=== PATIENT | female | born 2000 | race Caucasian/White ===

== ENCOUNTER 2023-08-14 18:35 | Emergency (ER) | payer BC, SELFPAY ==
[2023-08-14 18:45] VITALS: BP 103/74; PULSE 73; RESP 20; TEMP 36.7; O2SAT 96; BMI 50.1
--- NOTE | 2023-08-14 18:47 | EXP.UTC ---
Discharge Plan Disposition Patient Disposition: Home, Self-Care Condition: Good Prescriptions Prescriptions: New frtectnxxpahklf-ooihwpqwi-FJ [Bromfed DM] 2-30-10 mg/5 mL Syrup 5 ml PO Q6H PRN (Reason: Cough) Qty: 240 0RF ondansetron 4 mg Tablet,Disintegrating 4 mg PO Q8H PRN (Reason: Nausea) Qty: 12 0RF No Action duloxetine 60 mg capsule,delayed release(DR/EC) 60 mg PO DAILY Referrals Follow up/Referrals: Provider,Referral, MD [Primary Care Provider] - See instructions Activity Restrictions/Add. Instructions Additional Instructions/Restrictions: Drink plenty of fluids. Take tylenol or ibuprofen for pain or fever. Take the medications as directed. Follow up with your regular doctor. GO TO THE ER FOR ANY WORSENING SYMPTOMS Clinical Impressions Clinical Impression: Acute viral syndrome Stand Alone Forms Stand Alone Forms: Work/School Release Instructions Patient Instructions: DI for Viral Syndrome, Ondansetron Discharge ED Provider: Abelino Edwards [facility] General Stated complaint: fever, h/a, body aches, dizzy Time Seen by Provider: 08/14/23 18:46 History of Present Illness Provider Complaint: She states that for the past 2 days she had felt bad, had chills and body aches. Related Data Home Medications Medication Instructions Recorded Confirmed duloxetine 60 mg capsule,delayed 60 mg PO DAILY 08/14/23 08/14/23 release Previous Rx's Medication Instructions Recorded wkbcxzgiznolhso-ysfctvgosxpinwf-QX 5 ml PO Q6H PRN Cough #240 mL 08/14/23 2 mg-30 mg-10 mg/5 mL oral syrup (Bromfed DM) ondansetron 4 mg disintegrating 4 mg PO Q8H PRN Nausea #12 tabs 08/14/23 tablet Allergies Allergy/AdvReac Type Severity Reaction Status Date / Time No Known Allergies Allergy Verified 08/14/23 19:01 [facility] Disclaimer: The information contained in this section may have been updated after the patient was seen, as this information can be updated by other users. 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 (Updated 08/14/23 @ 19:20 by Abelino Edwards APRN) Anemia Anxiety Depression Surgical History (Updated 08/14/23 @ 19:02 by Sandi A Camacho, RN) History of tonsillectomy Social History Smoking Status: Never smoker alcohol intake: never current occupational status: employed Travel in the last 8 weeks: None ROS Obtained: Yes All systems reviewed & no additional complaints except as documented Constitutional Constitutional: Reports chills and Reports fever(s) Eyes Eyes: Denies eye discharge ENT Ears, Nose, Mouth, and Throat: Reports as per HPI Cardiovascular Cardiovascular: Denies chest pain Respiratory Respiratory: Denies chest congestion and Reports cough Gastrointestinal Gastrointestingal: Reports nausea; Denies abdominal pain, constipation, cramping, diarrhea or vomiting Musculoskeletal Musculoskeletal: Denies arthralgias Integumentary/Breasts Skin/Breast: Denies rash Neurologic Neurologic: Denies paresthesias Physical Exam General General appearance: alert and in no apparent distress Head Head exam: atraumatic, normocephalic and normal inspection Eye Eye exam: Present normal appearance, PERRL and EOMI ENT ENT exam: Present normal exam, normal oropharynx, mucous membranes moist, TM's normal bilaterally and normal external ear exam Neck Neck exam: Present normal inspection, full ROM and trachea midline; Absent meningismus or lymphadenopathy Chest Chest inspection: Present normal inspection and symmetric chest wall rise; Absent tenderness Respiratory Respiratory exam: Present normal lung sounds bilaterally; Absent respiratory distress Cardiovascular Cardiovascular exam: Present regular rate and normal rhythm; Absent JVD Abdominal Exam Abdominal exam: Present soft and normal bowel sounds; Absent distention, tenderness or guarding Extremities Exam Extremities exam: Present normal inspection, full ROM and normal capillary refill; Absent calf tenderness B
[2023-08-14 19:09] LABS: UTC Influenza A Antigen Negative (Negative); UTC Strep Screen (Rapid) Negative (Negative)
[2023-08-14 19:10] LABS: UTC Influenza B Antigen Negative (Negative)
[2023-08-14 19:17] VITALS: BP 103/74; PULSE 73; RESP 20; TEMP 36.7; O2SAT 96
[2023-08-14 19:28] LABS: Adenovirus,PCR Not Detected (NotDetected); Coronavirus 19, PCR Not Detected (NotDetected); Coronavirus 229E Not Detected (NotDetected); Coronavirus NL63 Not Detected (NotDetected); Coronavirus OC43 Not Detected (NotDetected); Coronovirus HKU1,PCR Not Detected (NotDetected); Human Metapneumovirus Not Detected (NotDetected); Influenza A, PCR Not Detected (NotDetected); Influenza AH1, 2009 Not Detected (NotDetected); Influenza AH1, PCR Not Detected (NotDetected); Influenza AH3,PCR Not Detected (NotDetected); Influenza B, PCR Not Detected (NotDetected); Parainfluenza 1, PCR Not Detected (NotDetected); Parainfluenza 2, PCR Not Detected (NotDetected); Parainfluenza 3, PCR Not Detected (NotDetected); Parainfluenza 4, PCR Not Detected (NotDetected); Respiratory Syncytial Virus Not Detected (NotDetected); Rhinovirus/Enterovirus Not Detected (NotDetected)
== END 2023-08-14 19:25 | disposition home or self-care (01) ==
PROVIDERS: Emergency Provider Nurse Practitioner Family; PCP Nurse Practitioner
DX: M79.18 Myalgia, other site (principal); R68.83 Chills (without fever); B34.9 Viral infection, unspecified; F41.9 Anxiety disorder, unspecified; F32.A Depression, unspecified
CPT/HCPCS: 87632; 87635; 87804; 87880; 99204; 99212; G0463

== ENCOUNTER 2023-08-20 20:50 | Emergency (ER) | payer BC, SELFPAY ==
--- NOTE | 2023-08-20 20:48 | ECG_ITS ---
APPROVED REPORT Exam: Resting ECG HR:78 bpm ECG Measurements Heart Rate 78 AXES AK 167 P 62 QRSd 109 QRS 34 QT 362 T 42 QTc 395 Conclusion SINUS RHYTHM NORMAL ECG UNCONFIRMED REPORT Electronically signed by : Canelo Ritchie MD 08/21/2023 08:31:12
[2023-08-20 20:52] VITALS: BP 120/68; PULSE 78; RESP 15; TEMP 36.6; O2SAT 100; BMI 49.9
--- NOTE | 2023-08-20 20:53 | CT_ITS ---
PROCEDURE INFORMATION: Exam: CTA Neck With Contrast Exam date and time: 08/20/2023 9:25 PM Age: 23 years old Clinical indication: Pain; Headache; Additional info: Sudden NUÑEZ followed by near syncope TECHNIQUE: Imaging protocol: Computed tomographic angiography of the neck with contrast. Exam focused on the cervical segments of the vasculature. 3D rendering (Not supervised by radiologist): MIP and/or 3D reconstructed images were created by the technologist. Radiation optimization: All CT scans at this facility use at least one of these dose optimization techniques: automated exposure control; mA and/or kV adjustment per patient size (includes targeted exams where dose is matched to clinical indication); or iterative reconstruction. Contrast material: ISOVUE; Contrast volume: 100 ml; Contrast route: INTRAVENOUS (IV); REPORTING DATA: Count of CT and Cardiac NM exams in prior 12 months: This patient has received 0 known CTs and 0 known cardiac nuclear medicine studies in the 12 months prior to the current study. COMPARISON: CT HEAD/BRAIN WO CON 08/20/2023 9:22 PM FINDINGS: Right common carotid artery: No stenosis. No dissection or occlusion. Right internal carotid artery: No stenosis of the extracranial segment. No dissection or occlusion. Right external carotid artery: No occlusion or stenosis of the origin. Left common carotid artery: No stenosis. No dissection or occlusion. Left internal carotid artery: No stenosis of the extracranial segment. No dissection or occlusion. Left external carotid artery: No occlusion or stenosis of the origin. Right vertebral artery: No stenosis. No dissection or occlusion. Left vertebral artery: No stenosis. No dissection or occlusion. Soft tissues: Normal. No significant soft tissue swelling. Bones/joints: No acute fracture. IMPRESSION: No stenosis or occlusion. REFERENCES: NASCET CRITERIA. The degree of stenosis in the cervical segment of the internal carotid artery is based on NASCET criteria. Normal is no stenosis. Mild is less than 50% stenosis. Moderate is 50-69% stenosis. Severe is 70% to 99% stenosis. Total occlusion is no detectable patent lumen.
--- NOTE | 2023-08-20 20:53 | XR_ITS ---
PROCEDURE INFORMATION: Exam: XR Chest Exam date and time: 08/20/2023 9:44 PM Age: 23 years old Clinical indication: Dyspnea TECHNIQUE: Imaging protocol: Radiologic exam of the chest. Views: 1 view. COMPARISON: CT ANGIO NECK 08/20/2023 9:25 PM FINDINGS: Lungs: Unremarkable. No consolidation. Pleural spaces: Unremarkable. No pleural effusion. No pneumothorax. Heart/Mediastinum: Unremarkable. No cardiomegaly. Bones/joints: Unremarkable. IMPRESSION: No acute findings.
--- NOTE | 2023-08-20 20:53 | CT_ITS ---
PROCEDURE INFORMATION: Exam: CT Head Without Contrast Exam date and time: 08/20/2023 9:22 PM Age: 23 years old Clinical indication: Pain; Headache; Additional info: Sudden NUÑEZ followed by near syncope TECHNIQUE: Imaging protocol: Computed tomography of the head without contrast. Radiation optimization: All CT scans at this facility use at least one of these dose optimization techniques: automated exposure control; mA and/or kV adjustment per patient size (includes targeted exams where dose is matched to clinical indication); or iterative reconstruction. REPORTING DATA: Count of CT and Cardiac NM exams in prior 12 months: This patient has received 0 known CTs and 0 known cardiac nuclear medicine studies in the 12 months prior to the current study. COMPARISON: No relevant prior studies available. FINDINGS: Brain: No acute infarct. No hemorrhage. Unremarkable white matter for age. No mass effect. Cerebral ventricles: No ventriculomegaly. Paranasal sinuses: Left maxillary sinus mucous retention cyst or polyp. No fluid levels. Mastoid air cells: Visualized mastoid air cells are well aerated. Bones/joints: Unremarkable. No acute fracture. Soft tissues: Unremarkable. IMPRESSION: No acute intracranial abnormality.
--- NOTE | 2023-08-20 20:53 | CT_ITS ---
PROCEDURE INFORMATION: Exam: CTA Head With Contrast, Arteriography Exam date and time: 08/20/2023 9:25 PM Age: 23 years old Clinical indication: Pain; Headache; Additional info: Sudden NUÑEZ followed by near syncope TECHNIQUE: Imaging protocol: Computed tomographic angiography of the head with contrast. Exam focused on the arteries. 3D rendering (Not supervised by radiologist): MIP and/or 3D reconstructed images were created by the technologist. Radiation optimization: All CT scans at this facility use at least one of these dose optimization techniques: automated exposure control; mA and/or kV adjustment per patient size (includes targeted exams where dose is matched to clinical indication); or iterative reconstruction. Contrast material: ISOVUE; Contrast volume: 100 ml; Contrast route: INTRAVENOUS (IV); REPORTING DATA: Count of CT and Cardiac NM exams in prior 12 months: This patient has received 0 known CTs and 0 known cardiac nuclear medicine studies in the 12 months prior to the current study. COMPARISON: CT HEAD/BRAIN WO CON 08/20/2023 9:22 PM FINDINGS: ANTERIOR CIRCULATION: Right internal carotid artery: Intracranial segment is patent with no significant stenosis. No aneurysm. Right middle cerebral artery: No occlusion or significant stenosis. No aneurysm. Right anterior cerebral artery: No occlusion or significant stenosis. No aneurysm. Left internal carotid artery: Intracranial segment is patent with no significant stenosis. No aneurysm. Left middle cerebral artery: No occlusion or significant stenosis. No aneurysm. Left anterior cerebral artery: No occlusion or significant stenosis. No aneurysm. POSTERIOR CIRCULATION: Right vertebral artery: No occlusion or significant stenosis. No aneurysm. Left vertebral artery: No occlusion or significant stenosis. No aneurysm. Basilar artery: No occlusion or significant stenosis. No aneurysm. Right posterior cerebral artery: No occlusion or significant stenosis. No aneurysm. Left posterior cerebral artery: No occlusion or significant stenosis. No aneurysm. Brain: No definite mass, mass effect, or midline shift. Cerebral ventricles: No ventriculomegaly. Bones/joints: Unremarkable. No acute fracture. Soft tissues: Unremarkable. IMPRESSION: No large vessel stenosis or occlusion.
--- NOTE | 2023-08-20 20:55 | HMH.EDGENADL ---
Discharge Plan Disposition Patient Disposition: Home, Self-Care Condition: Good Prescriptions Prescriptions: No Action duloxetine 60 mg capsule,delayed release(DR/EC) 60 mg PO DAILY Referrals Follow up/Referrals: Rk Anderson MD [Staff Physician] - See instructions (near syncope; eval for possible arrhythmia ) Activity Restrictions/Add. Instructions Additional Instructions/Restrictions: You were evaluated in the emergency department today. Please follow-up closely with your primary care provider. I also recommend calling the office of Dr. Anderson and arranging cardiology follow-up for further evaluation and management. Return to the emergency department for any new or worsening symptoms. Clinical Impressions Clinical Impression: Near syncope, Chest pain, Headache Instructions Patient Instructions: DI for Atypical Chest Pain Discharge ED Provider: Griselda Roberts General Adult HPI <J Denver Ortiz MD - Last Filed: 08/20/23 23:29> General Chief complaint: Chest Pain Stated complaint: Headache, near syncope and chest pain Time Seen by Provider: 08/20/23 20:52 History of Present Illness HPI narrative: Patient is a 23-year-old female presenting today with a near syncopal episode. This occurred just prior to arrival. She is accompanied by her fianc? who also gives history. They are having intense conversation about some stressful situations in the middle of this he stated that her eyes began to flutter in the back of her head and she was aware and conscious this entire time and states that she had a significant pain in the back of her head that was sudden and worse that its intensity that was subsequently followed by near syncopal episode and some chest discomfort. She denies any significant shortness of breath right now. No history of lower extremity swelling specifically asymmetric swelling. No history of DVT or PTE. She is not on any control pills or any hormone replacement therapy. She has no family history of any clotting disorders. She has not had any prolonged immobilizations or recent surgeries. She states that her headache is still present but is gotten a bit better. No family history of aneurysms that she is aware of other than her paternal grandmother who she thinks may have at an old age from this but not at a young age. She does not complain of any neurologic complaints at this point regarding focal neurologic deficits. Related Data Home Medications Medication Instructions Recorded Confirmed duloxetine 60 mg capsule,delayed 60 mg PO DAILY 08/14/23 08/20/23 release Allergies Allergy/AdvReac Type Severity Reaction Status Date / Time No Known Allergies Allergy Verified 08/20/23 20:59 PFSH <Juaquin Ortiz MD - Last Filed: 08/20/23 23:29> [facility] Disclaimer: The information contained in this section may have been updated after the patient was seen, as this information can be updated by other users. 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 (Updated 08/20/23 @ 21:00 by Juaquin Ortiz MD) Anemia Anxiety Depression Surgical History (Updated 08/14/23 @ 19:02 by Sandi Camacho RN) History of tonsillectomy Social History (Updated 08/15/23 @ 09:57 by Abelino Edwards APRN) Smoking Status: Current every day smoker alcohol intake: never current occupational status: employed Travel in the last 8 weeks: None <Griselda Roberts DO - Last Filed: 08/21/23 01:03> ROS Obtained: Yes All systems reviewed & no additional complaints except as documented Physical Exam <Juaquin Ortiz MD - Last Filed: 08/20/23 23:29> Respiratory Respiratory exam: Present normal lung sounds bilaterally; Absent respiratory distress, wheezes or stridor Cardiovascular Cardiovascular exam: Present regular rate; Absent tachycardia Neurological Exam Neurological exam: Present alert, oriented X3, CN II-XII intact and normal gait; Absent motor sensory deficit <Griselda Roberts DO - Last Filed: 08/21/23
[2023-08-20 21:24] LABS: Basophils % 0.3 % (0.1-2.0); Eosinophils # 0.3 K/mm3 (0.0-0.4); Eosinophils % 2.4 % (0.1-12.0); Hematocrit 37.8 % (37.0-47.0); Lymphocytes # 2.2 K/mm3 (0.7-4.5); Lymphocytes % 20.1 % (10-50); Mean Corpuscular HGB Conc 34.3 g/dL (31.8-35.4); Mean Corpuscular Hemoglobin 28.3 pg (27.0-31.2); Mean Corpuscular Volume 82.4 fl (81-99); Mean Platelet Volume 8.5 fl (7.4-10.4); Monocytes # 0.5 K/mm3 (0.1-1.0); Monocytes % 4.9 % (1.7-9.3); Neutrophils % 72.3 % (37.0-80.0); Platelet Count 237 K/mm3 (142-424); Red Blood Count 4.59 M/mm3 (4.20-5.40); Red Cell Distribution Width 14.1 % (11.5-17.5); White Blood Count 11.1 K/mm3 (4.8-10.8)
[2023-08-20 21:26] LABS: Chloride 105 mmol/L (98-107); Potassium 4.8 mmoL/L (3.5-5.1); Sodium 137 mmol/L (136-145)
[2023-08-20 21:29] LABS: Alanine Aminotransferase 23 U/L (12-78); Albumin Level 4.4 g/dl (3.5-5.0); Albumin/Globulin Ratio 1.5 (1.1-1.8); Alkaline Phosphatase 40 U/L (38-126); Anion Gap 10.8 mEq/L (5-15); Aspartate Amino Transferase 36 U/L (14-36); Bilirubin,Total 0.5 mg/dl (0.2-1.3); Blood Urea Nitrogen 17 mg/dl (7-17); Carbon Dioxide 26 mmol/L (22.0-30.0); Creatinine Clearance Estimated 113 mL/min (50-200); Estimated Glomerular Filt Rate 122 ml/min (>60); GFR (African American) 147 ML/MIN (>60); Total Protein,Serum 7.4 g/dl (6.3-8.2)
[2023-08-20 21:30] LABS: Calcium 8.5 mg/dl (8.4-10.2); Glucose 127 mg/dl (74-100)
[2023-08-20 21:51] LABS: Troponin I < 0.01 ng/ml (0.00-0.034)
[2023-08-20 22:01] VITALS: BP 101/47; PULSE 83; RESP 17; O2SAT 97
[2023-08-20 22:30] VITALS: BP 99/57; PULSE 82; RESP 19; O2SAT 98
--- NOTE | 2023-08-20 23:23 | PC.NURSE ---
Rounded on patient; warm blankets provided nothing else needed at this time. Call light within reach of patient
[2023-08-20 23:25] VITALS: BP 99/60; PULSE 70; RESP 18; O2SAT 100
[2023-08-20 23:30] VITALS: BP 116/61; PULSE 70; RESP 16; O2SAT 99
[2023-08-21] VITALS: BP 111/64; PULSE 65; RESP 17; O2SAT 100
[2023-08-21 00:52] LABS: Troponin I < 0.01 ng/ml (0.00-0.034)
[2023-08-21 01:04] VITALS: BP 106/60; PULSE 68; RESP 16; TEMP 36.7; O2SAT 98
== END 2023-08-21 01:04 | disposition home or self-care (01) ==
PROVIDERS: Student in an Organized Health Care Education/Training Program; Emergency Provider Emergency Medicine
DX: R55 Syncope and collapse (principal); R07.9 Chest pain, unspecified
CPT/HCPCS: 36415; 70450; 70496; 70498; 71045; 80053; 84484; 85025; 93005; 96361; 96374; 96375; 99285; Q9967

== ENCOUNTER 2023-09-07 17:57 | Emergency (ER) | payer BC, SELFPAY ==
[2023-09-07 17:57] VITALS: BP 96/64; PULSE 69; RESP 18; TEMP 36.9; O2SAT 100; BMI 49.4
--- NOTE | 2023-09-07 18:16 | EXP.UTC ---
Discharge Plan Disposition Patient Disposition: Home, Self-Care Condition: Good Prescriptions Prescriptions: New benzonatate [benzonatate] 100 mg capsule 100 mg PO TIDP PRN (Reason: Cough) Qty: 30 0RF ondansetron 4 mg Tablet,Disintegrating 4 mg PO Q8H PRN (Reason: Nausea) Qty: 12 0RF No Action duloxetine 60 mg capsule,delayed release(DR/EC) 60 mg PO DAILY Referrals Follow up/Referrals: Provider,Referral, MD [Primary Care Provider] - See instructions Activity Restrictions/Add. Instructions Additional Instructions/Restrictions: Drink plenty of fluids. Take tylenol or ibuprofen for pain or fever. Take the medications as directed. Follow up with your regular doctor. GO TO THE ER FOR ANY WORSENING SYMPTOMS Clinical Impressions Clinical Impression: Acute viral syndrome Instructions Patient Instructions: DI for Viral Syndrome Discharge ED Provider: Abelino Edwards [facility] HPI General Stated complaint: exposed to covid, sore throat, NUÑEZ Time Seen by Provider: 09/07/23 18:16 History of Present Illness Provider Complaint: She states that for the past 2 days she has had sore throat, chills, and body aches. She denies significant congestion. Related Data Home Medications Medication Instructions Recorded Confirmed duloxetine 60 mg capsule,delayed 60 mg PO DAILY 08/14/23 09/07/23 release Previous Rx's Medication Instructions Recorded benzonatate 100 mg capsule 100 mg PO TIDP PRN Cough #30 caps 09/07/23 ondansetron 4 mg disintegrating 4 mg PO Q8H PRN Nausea #12 tabs 09/07/23 tablet Allergies Allergy/AdvReac Type Severity Reaction Status Date / Time No Known Allergies Allergy Verified 08/20/23 20:59 [facility] Disclaimer: The information contained in this section may have been updated after the patient was seen, as this information can be updated by other users. 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 (Updated 09/07/23 @ 18:44 by Abelino Edwards APRN) Anemia Anxiety Depression Surgical History History of tonsillectomy Social History Smoking Status: Current every day smoker alcohol intake: never current occupational status: employed Travel in the last 8 weeks: None ROS Obtained: Yes All systems reviewed & no additional complaints except as documented Constitutional Constitutional: Reports chills and Reports fever(s) Eyes Eyes: Denies eye discharge ENT Ears, Nose, Mouth, and Throat: Reports as per HPI Cardiovascular Cardiovascular: Denies chest pain Respiratory Respiratory: Denies chest congestion and Reports cough Gastrointestinal Gastrointestingal: Reports nausea; Denies abdominal pain, constipation, cramping, diarrhea or vomiting Musculoskeletal Musculoskeletal: Denies arthralgias Integumentary/Breasts Skin/Breast: Denies rash Neurologic Neurologic: Denies paresthesias Physical Exam General General appearance: alert and in no apparent distress Head Head exam: atraumatic, normocephalic and normal inspection Eye Eye exam: Present normal appearance, PERRL and EOMI ENT ENT exam: Present normal exam, normal oropharynx, mucous membranes moist, TM's normal bilaterally and normal external ear exam Neck Neck exam: Present normal inspection, full ROM and trachea midline; Absent meningismus or lymphadenopathy Chest Chest inspection: Present normal inspection and symmetric chest wall rise; Absent tenderness Respiratory Respiratory exam: Present normal lung sounds bilaterally; Absent respiratory distress Cardiovascular Cardiovascular exam: Present regular rate and normal rhythm; Absent JVD Abdominal Exam Abdominal exam: Present soft and normal bowel sounds; Absent distention, tenderness or guarding Extremities Exam Extremities exam: Present normal inspection, full ROM and normal capillary refill; Absent calf tenderness Back Exam Back exam: Present normal inspection; Absent
[2023-09-07 18:31] LABS: UTC Strep Screen (Rapid) Negative (Negative)
[2023-09-07 18:49] VITALS: BP 96/64; PULSE 69; RESP 18; TEMP 36.9; O2SAT 100
== END 2023-09-07 18:49 | disposition home or self-care (01) ==
PROVIDERS: Emergency Provider Nurse Practitioner Family
DX: R07.0 Pain in throat (principal); R51.9 Headache, unspecified; B34.9 Viral infection, unspecified; R68.83 Chills (without fever); F17.210 Nicotine dependence, cigarettes, uncomplicated; F41.9 Anxiety disorder, unspecified; F32.A Depression, unspecified; Z20.822 Contact with and (suspected) exposure to COVID-19
CPT/HCPCS: 87635; 87880; 99212; 99214; G0463

== ENCOUNTER 2023-09-21 11:17 | Emergency (ER) | payer BC, SELFPAY ==
[2023-09-21 11:19] VITALS: BP 104/52; PULSE 95; RESP 18; TEMP 37.2; O2SAT 99; BMI 49.4
[2023-09-21 11:35] LABS: Coronavirus 19, PCR Not Detected (NotDetected); Influenza A, PCR Not Detected (NotDetected); Influenza B, PCR Not Detected (NotDetected)
--- NOTE | 2023-09-21 11:46 | HMH.EDGENADL ---
Discharge Plan Disposition Patient Disposition: Home, Self-Care Condition: Good Prescriptions Prescriptions: No Action benzonatate [benzonatate] 100 mg capsule 100 mg PO TIDP PRN (Reason: Cough) Qty: 30 0RF ondansetron 4 mg Tablet,Disintegrating 4 mg PO Q8H PRN (Reason: Nausea) Qty: 12 0RF duloxetine 60 mg capsule,delayed release(DR/EC) 60 mg PO DAILY Referrals Follow up/Referrals: Provider,Referral, MD [Primary Care Provider] - See instructions Activity Restrictions/Add. Instructions Additional Instructions/Restrictions: You were evaluated in the emergency department today. Take Tylenol and ibuprofen at home as needed for pain and fever. Hydrate is much as possible. Return to the emergency department for new or worsening symptoms. Clinical Impressions Clinical Impression: Viral URI with cough Instructions Patient Instructions: DI for Viral Upper Respiratory Infection -- Adult Discharge ED Provider: Griselda Roberts General Adult HPI General Chief complaint: Upper Respiratory Infection Stated complaint: fever, h/a, sore throat, bilateral ear pain Time Seen by Provider: 09/21/23 11:30 Mode of Arrival: Ambulatory Source of Information: Patient Limitations: No Limitations Description of Symptoms (Recalled from ER Triage Doc. by RN): PT C/O HEADACHE AND HEAD CONGESTION THAT STARTED YESTERDAY, + FOR STREP, EXPOSED TO COVID AT WORK, REPORTS FEVER SORE THROAT AND EAR PRESSURE History of Present Illness HPI narrative: This patient is a 23-year-old female who presents for evaluation with concern for 2 days of sore throat, cough, congestion, headache, and ear pressure. She states that her was seen here this morning and tested positive for strep. She also notes that she was exposed to COVID at work. She is requesting swabs at this time. She took Tylenol and Motrin at home this morning with good improvement. No other concerns noted. Related Data Home Medications Medication Instructions Recorded Confirmed duloxetine 60 mg capsule,delayed 60 mg PO DAILY 08/14/23 09/07/23 release Previous Rx's Medication Instructions Recorded benzonatate 100 mg capsule 100 mg PO TIDP PRN Cough #30 caps 09/07/23 ondansetron 4 mg disintegrating 4 mg PO Q8H PRN Nausea #12 tabs 09/07/23 tablet Allergies Allergy/AdvReac Type Severity Reaction Status Date / Time No Known Allergies Allergy Verified 08/20/23 20:59 PFSH PFSH Disclaimer: The information contained in this section may have been updated after the patient was seen, as this information can be updated by other users. 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 Anemia Anxiety Depression Surgical History History of tonsillectomy Social History Smoking Status: Current every day smoker alcohol intake: never current occupational status: employed Travel in the last 8 weeks: None ROS Obtained: Yes All systems reviewed & no additional complaints except as documented Physical Exam General General appearance: alert and in no apparent distress Head Head exam: atraumatic and normocephalic Eye Eye exam: Present normal appearance, PERRL and EOMI ENT ENT exam: Present normal exam, normal oropharynx, mucous membranes moist and normal external ear exam Neck Neck exam: Present normal inspection, full ROM and trachea midline; Absent tenderness Chest Chest inspection: Present normal inspection and symmetric chest wall rise; Absent tenderness Respiratory Respiratory exam: Present normal lung sounds bilaterally; Absent respiratory distress, wheezes, stridor or accessory muscle use Cardiovascular Cardiovascular exam: Present regular rate and normal rhythm Abdominal Exam Abdominal exam: Present soft; Absent distention, tenderness or guarding Extremities Exam Extremities exam: Present normal inspect
[2023-09-21 11:47] LABS: Strep Scrn Group A (Rapid) Negative (Negative)
[2023-09-21 12:01] VITALS: BP 116/45; PULSE 98; RESP 18; O2SAT 98
[2023-09-21 12:50] VITALS: BP 109/53; PULSE 77; RESP 18; TEMP 37.2; O2SAT 97
--- NOTE | 2023-09-25 17:30 | PC.NURSE ---
PCN V 500MG PO TID FOR 10 DAYS CALLED IN TO [facility] PER DR BERRIOS
== END 2023-09-21 12:50 | disposition home or self-care (01) ==
PROVIDERS: Emergency Provider Emergency Medicine
DX: J06.9 Acute upper respiratory infection, unspecified (principal); R05.9 Cough, unspecified; R51.9 Headache, unspecified; F17.210 Nicotine dependence, cigarettes, uncomplicated; Z20.822 Contact with and (suspected) exposure to COVID-19
CPT/HCPCS: 87430; 87636; 99283; 99284

== ENCOUNTER 2023-10-11 18:16 | Emergency (ER) | payer BC, SELFPAY ==
[2023-10-11 19:20] VITALS: PULSE 104; RESP 18; TEMP 36.9; O2SAT 96; BMI 52.9
--- NOTE | 2023-10-11 19:43 | EXP.UTC ---
Discharge Plan Disposition Patient Disposition: Home, Self-Care Condition: Good Prescriptions Prescriptions: No Action amitriptyline 25 mg tablet 25 mg PO DAILY bupropion HCl 150 mg tablet extended release 24 hr 150 mg PO DAILY Referrals Follow up/Referrals: Provider,Referral, [Primary Care Provider] - See instructions Activity Restrictions/Add. Instructions Additional Instructions/Restrictions: covid swab was sent to lab, call tomorrow for results. self isolate until test results are known to be negative No sign of a bacterial infection. Likely viral. Viruses can take 7-14 days to run their course. Nasal saline and bulb syringe or nose Christen to remove nasal drainage to help with nasal congestion. Hard to eat, drink, sleep with nasal congestion so important to keep this cleaned out. Monitor temp. Tylenol or Motrin as needed for pain or fever Encourage fluids, water, Gatorade, Powerade, Pedialyte if /toddler/child Warm salt water gargles Warm fluids Sore throat lozenges Sleep elevated Humidifier/vaporizer Follow-up immediately for new or worsening symptoms or no noticeable improvement over the next 48-72 hours. Clinical Impressions Clinical Impression: Viral URI with cough Stand Alone Forms Stand Alone Forms: Work/School Release Instructions Patient Instructions: DI for Viral Upper Respiratory Infection -- Adult Discharge ED Provider: Jahaira ([facility])Birgit [facility] [place] HPI General Stated complaint: h/a, cough, weakness, chills Mode of Arrival: Ambulatory Source of Information: Patient Limitations: No Limitations Time Seen by Provider: 10/11/23 19:43 Description of Symptoms (Recalled from Triage Doc. by RN): Chills, NUÑEZ, cough, and ear ache. Pt was exposed to Covid and FLU. HEENT Symptoms (Recalled from RN notes): Yes Resp Symptoms (Recalled from RN notes): No Skin Symptoms (Recalled from RN notes): No MS Symptoms (Recalled from RN notes): No Functional Status (Recalled from RN notes): n/a History of Present Illness Provider Complaint: 23 yr old female presents for Chills, NUÑEZ, cough, and ear ache. Pt was exposed to Covid and FLU. Related Data Home Medications Medication Instructions Recorded Confirmed amitriptyline 25 mg tablet 25 mg PO DAILY 10/11/23 10/11/23 bupropion HCl 150 mg 24 hr tablet, 150 mg PO DAILY 10/11/23 10/11/23 extended release Allergies Allergy/AdvReac Type Severity Reaction Status Date / Time No Known Allergies Allergy Verified 10/11/23 19:41 Worker's Comp Is this a Worker's Comp case?: No [facility] Disclaimer: The information contained in this section may have been updated after the patient was seen, as this information can be updated by other users. 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) Smoking Status: Current every day smoker alcohol intake: never current occupational status: employed Travel in the last 8 weeks: None ROS Obtained: Yes All systems reviewed & no additional complaints except as documented Constitutional Constitutional: Reports system reviewed and no additional complaints, except as documented, Reports as per HPI, Reports body ache and Reports chills Eyes Eyes: Reports system reviewed and no additional complaints, except as documented ENT Ears, Nose, Mouth, and Throat: Reports system reviewed and no additional complaints, except as documented, Reports as per HPI and Reports otalgia Cardiovascular Cardiovascular: Reports system reviewed and no additional complaints, except as documented Respiratory Respiratory: Reports system reviewed and no additional complaints, except as documented and Reports cough Integumentary/Breasts Skin/Breast: Reports system reviewed and no additional
[2023-10-11 19:58] LABS: UTC Influenza A Antigen Negative (Negative); UTC Influenza B Antigen Negative (Negative)
[2023-10-11 20:02] VITALS: BP 0/0; PULSE 104; RESP 18; TEMP 36.9; O2SAT 96
== END 2023-10-11 20:02 | disposition home or self-care (01) ==
PROVIDERS: Emergency Provider Nurse Practitioner Family
DX: R05.9 Cough, unspecified (principal); J06.9 Acute upper respiratory infection, unspecified; R51.9 Headache, unspecified; H92.09 Otalgia, unspecified ear; R68.83 Chills (without fever); B34.9 Viral infection, unspecified; F17.210 Nicotine dependence, cigarettes, uncomplicated; Z20.822 Contact with and (suspected) exposure to COVID-19
CPT/HCPCS: 87635; 87804; 99212; 99213; G0463

== ENCOUNTER 2023-11-07 13:56 | Emergency (ER) | payer BC, SELFPAY ==
[2023-11-07 14:20] VITALS: BP 110/67; PULSE 93; RESP 18; TEMP 38.1; O2SAT 98; BMI 49.4
--- NOTE | 2023-11-07 14:34 | EXP.UTC ---
Discharge Plan Disposition Patient Disposition: Home, Self-Care Condition: Good Prescriptions Prescriptions: New methylprednisolone 4 mg Tablets,Dose Pack 4 mg PO DIRECTED 6 Days Qty: 21 0RF Rx Instructions: Take 1 pack as directed for 6 days mwdfghciehblfdk-rnyikggew-QT [Bromfed DM] 2-30-10 mg/5 mL Syrup 5 ml PO Q6H PRN (Reason: Cough) Qty: 240 0RF No Action amitriptyline 25 mg tablet 25 mg PO DAILY bupropion HCl 150 mg tablet extended release 24 hr 150 mg PO DAILY Referrals Follow up/Referrals: Beatriz Swain PA [Primary Care Provider] - See instructions Activity Restrictions/Add. Instructions Additional Instructions/Restrictions: Drink plenty of fluids. Take tylenol or ibuprofen for pain or fever. Take the medications as directed. Follow up with your regular doctor. GO TO THE ER FOR ANY WORSENING SYMPTOMS Clinical Impressions Clinical Impression: Strep throat, COVID-19 Instructions Patient Instructions: Strep Throat, DI for Strep Throat Discharge ED Provider: Abelino Edwards [facility] [place] HPI General Stated complaint: fever, sore throat tested pos for covid at home Time Seen by Provider: 11/07/23 14:33 History of Present Illness Provider Complaint: She states that she has had fever and sore throat for the past 2 days. Related Data Home Medications Medication Instructions Recorded Confirmed amitriptyline 25 mg tablet 25 mg PO DAILY 10/11/23 11/07/23 bupropion HCl 150 mg 24 hr tablet, 150 mg PO DAILY 10/11/23 11/07/23 extended release Previous Rx's Medication Instructions Recorded gisbujdwptauoey-vqcbfzhkapaoqkd-PI 5 ml PO Q6H PRN Cough #240 mL 11/07/23 2 mg-30 mg-10 mg/5 mL oral syrup (Bromfed DM) methylprednisolone 4 mg tablets in 4 mg PO DIRECTED 6 days #21 tabs 11/07/23 a dose pack Allergies Allergy/AdvReac Type Severity Reaction Status Date / Time No Known Allergies Allergy Verified 11/07/23 14:57 [facility] Disclaimer: The information contained in this section may have been updated after the patient was seen, as this information can be updated by other users. 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) History of tonsillectomy Social History Smoking Status: Current every day smoker alcohol intake: never current occupational status: employed Travel in the last 8 weeks: None ROS Obtained: Yes All systems reviewed & no additional complaints except as documented Constitutional Constitutional: Reports chills and Reports fever(s) Eyes Eyes: Denies eye discharge ENT Ears, Nose, Mouth, and Throat: Reports as per HPI Cardiovascular Cardiovascular: Denies chest pain Respiratory Respiratory: Denies chest congestion and Reports cough Gastrointestinal Gastrointestingal: Reports nausea; Denies abdominal pain, constipation, cramping, diarrhea or vomiting Musculoskeletal Musculoskeletal: Denies arthralgias Integumentary/Breasts Skin/Breast: Denies rash Neurologic Neurologic: Denies paresthesias Physical Exam General General appearance: alert and in no apparent distress Head Head exam: atraumatic, normocephalic and normal inspection Eye Eye exam: Present normal appearance, PERRL and EOMI ENT ENT exam: Present mucous membranes moist and normal external ear exam Expanded ENT Exam TM/Canal exam: Bilateral TM: erythema and bulging Nose exam: Absent sinus tenderness Mouth exam: Present normal external inspection; Absent drooling Teeth exam: Present normal inspection Throat exam: Present tonsillar erythema, tonsillomegaly and tonsillar exudate Neck Neck exam: Present normal inspection, full ROM and trachea midline; Absent tenderness, meningismus or lymphadenopathy Chest Chest inspection: Present normal inspection and symmetric chest wall rise; Absent tenderness Respiratory Respiratory exam: Present normal lung sounds bilaterally; Absent respiratory distress, wheezes or stridor Cardiovascular Cardiovascular exam: Present regular rate and normal rhythm; Absent systolic murmur or diastolic murmur Abdominal Exam Abdominal exam: Present soft and normal bowel sounds; Absent distention, tenderness, guarding, rebound or rigidity Extremities Exam Extremities exam: Present normal inspection and normal capillary refill; Absent calf tenderness Back Exam Back exam: Present normal inspection and full ROM; Absent tenderness, CVA tenderness (R) or CVA tenderness (L) Neurological Exam Neurological exam: Present alert, oriented X3 and CN II-XII intact Psychiatric Psychiatric exam: Present normal affect and normal mood Skin Skin exam: Present warm, dry, intact and normal color Medical Decision Making Medical Records Medical records reviewed: No I reviewed the patient's medical records. Ananth Inquiry Pt receiving controlled substance: No Lab Data Lab results reviewed: Yes I reviewed the patient's lab results.
[2023-11-07 14:42] LABS: UTC Strep Screen (Rapid) Positive (Negative)
[2023-11-07] MEDS: DEXAMETHASONE 4MG/ML 1ML VIAL 8 MG IM (15:04)
[2023-11-07] MEDS: PENICILLIN G BENZATHINE 1,200,000 UNITS/2ML SYRINGE 1200000 UNIT IM (15:05)
[2023-11-07 15:28] VITALS: BP 110/67; PULSE 93; RESP 18; TEMP 37.6; O2SAT 98
== END 2023-11-07 15:28 | disposition home or self-care (01) ==
PROVIDERS: Emergency Provider Nurse Practitioner Family; PCP Physician Assistant
DX: J02.0 Streptococcal pharyngitis (principal); R07.0 Pain in throat; R50.9 Fever, unspecified; F17.210 Nicotine dependence, cigarettes, uncomplicated
CPT/HCPCS: 87635; 87880; 96372; 99212; 99214; G0463; J0561

== ENCOUNTER 2024-01-19 08:06 | Emergency (ER) | payer BC, SELFPAY ==
[2024-01-19 08:20] VITALS: PULSE 78; RESP 18; TEMP 36.9; O2SAT 96; BMI 53.7
--- NOTE | 2024-01-19 08:37 | EXP.UTC ---
Discharge Plan Disposition Patient Disposition: Home, Self-Care Condition: Good Prescriptions Prescriptions: New azithromycin [Zithromax] 250 mg tablet 250 mg PO UD DOSE PK Qty: 6 0RF Rx Instructions: Take two (2) tablets today, then one (1) tablet days #2 thru #5 methylprednisolone 4 mg Tablets,Dose Pack 4 mg PO DIRECTED 6 Days Qty: 21 0RF Rx Instructions: Take 1 pack as directed for 6 days hsnmiefacywjelj-ancapwdxa-LX [Bromfed DM] 2-30-10 mg/5 mL Syrup 5 ml PO Q6H PRN (Reason: Cough) Qty: 240 0RF No Action amitriptyline 25 mg tablet 25 mg PO DAILY bupropion HCl 150 mg tablet extended release 24 hr 150 mg PO DAILY methylprednisolone 4 mg Tablets,Dose Pack 4 mg PO DIRECTED 6 Days Qty: 21 0RF Rx Instructions: Take 1 pack as directed for 6 days mnnoboqnnhcaeqe-kmthlnjbe-SM [Bromfed DM] 2-30-10 mg/5 mL Syrup 5 ml PO Q6H PRN (Reason: Cough) Qty: 240 0RF Referrals Follow up/Referrals: Provider,Referral, MD [Primary Care Provider] - See instructions Activity Restrictions/Add. Instructions Additional Instructions/Restrictions: Drink plenty of fluids. Take tylenol or ibuprofen for pain or fever. Take the medications as directed. Follow up with your regular doctor. GO TO THE ER FOR ANY WORSENING SYMPTOMS Clinical Impressions Clinical Impression: Acute bronchitis, Acute viral syndrome, Pharyngitis Stand Alone Forms Stand Alone Forms: Work/School Release Instructions Patient Instructions: Sore Throat, DI for Pharyngitis/Tonsillopharyngitis -- Adult, DI for Viral Syndrome Discharge ED Provider: Abelino Edwards [facility] General Stated complaint: sore throat, headache, fatigue, fever Mode of Arrival: Ambulatory Source of Information: Patient Limitations: No Limitations Time Seen by Provider: 01/19/24 08:34 Description of Symptoms (Recalled from Triage Doc. by RN): Pt's symptoms are sore throat, NUÑEZ, fever, sinus pressure, stuffy nose, and ear drainage. HEENT Symptoms (Recalled from RN notes): Yes Resp Symptoms (Recalled from RN notes): No Skin Symptoms (Recalled from RN notes): No MS Symptoms (Recalled from RN notes): No Functional Status (Recalled from RN notes): n/a History of Present Illness Provider Complaint: She states that she has had sore throat, chills, body aches, malaise and fever since yesterday. Related Data Home Medications Medication Instructions Recorded Confirmed amitriptyline 25 mg tablet 25 mg PO DAILY 10/11/23 11/07/23 bupropion HCl 150 mg 24 hr tablet, 150 mg PO DAILY 10/11/23 11/07/23 extended release Previous Rx's Medication Instructions Recorded rvmqvjvzuaczdgf-jhsfabdfafajmaw-HS 5 ml PO Q6H PRN Cough #240 mL 11/07/23 2 mg-30 mg-10 mg/5 mL oral syrup (Bromfed DM) methylprednisolone 4 mg tablets in 4 mg PO DIRECTED 6 days #21 tabs 11/07/23 a dose pack azithromycin 250 mg tablet 250 mg PO UD DOSE PK #6 tabs 01/19/24 (Zithromax) hbiikbaohmvsbfx-zwrzdsmnsixlcpy-ZO 5 ml PO Q6H PRN Cough #240 mL 01/19/24 2 mg-30 mg-10 mg/5 mL oral syrup (Bromfed DM) methylprednisolone 4 mg tablets in 4 mg PO DIRECTED 6 days #21 tabs 01/19/24 a dose pack Allergies Allergy/AdvReac Type Severity Reaction Status Date / Time No Known Allergies Allergy Verified 01/19/24 09:09 Worker's Comp Is this a Worker's Comp case?: No [facility] Disclaimer: The information contained in this section may have been updated after the patient was seen, as this information can be updated by other users. 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) Anemia Anxiety Depression Surgical History (Reviewed 10/11/23 @ 19:44 by [facility]git [facility] LOG STACKER OPERATOR) History of tonsillectomy Social History Smoking Status: Current every day smoker alcohol intake: never current occupational status: employed Travel in the last 8 weeks: None ROS Obtained: Yes All systems reviewed & no additional complaints except as documented Constitutional Constitutional: Reports chills and Reports fever(s) Eyes Eyes: Denies eye discharge ENT Ears, Nose, Mouth, and Throat: Reports as per HPI Cardiovascular Cardiovascular: Denies chest pain Respiratory Respiratory: Denies chest congestion and Reports cough Gastrointestinal Gastrointestingal: Reports nausea; Denies abdominal pain, constipation, cramping, diarrhea or vomiting Musculoskeletal Musculoskeletal: Denies arthralgias Integumentary/Breasts Skin/Breast: Denies rash Neurologic Neurologic: Denies paresthesias Physical Exam General General appearance: alert and in no apparent distress Head Head exam: atraumatic, normocephalic and normal inspection Eye Eye exam: Present normal appearance, PERRL and EOMI ENT ENT exam: Present mucous membranes moist and normal external ear exam Expanded ENT Exam TM/Canal exam: Bilateral TM: erythema and bulging Nose exam: Absent sinus tenderness Mouth exam: Present normal external inspection; Absent drooling Teeth exam: Present normal inspection Throat exam: Present tonsillar erythema, tonsillomegaly and tonsillar exudate Neck Neck exam: Present normal inspection, full ROM and trachea midline; Absent tenderness, meningismus or lymphadenopathy Chest Chest inspection: Present normal inspection and symmetric chest wall rise; Absent tenderness Respiratory Respiratory exam: Present normal lung sounds bilaterally; Absent respiratory distress, wheezes, stridor or accessory muscle use Cardiovascular Cardiovascular exam: Present regular rate and normal rhythm; Absent systolic murmur or diastolic murmur Abdominal Exam Abdominal exam: Present soft and normal bowel sounds; Absent distention, tenderness, guarding, rebound or rigidity Extremities Exam Extremities exam: Present normal inspection and normal capillary refill; Absent calf tenderness Back Exam Back exam: Present normal inspection and full ROM; Absent tenderness, CVA tenderness (R) or CVA tenderness (L) Neurological Exam Neurological exam: Present alert, oriented X3 and CN II-XII intact Psychiatric Psychiatric exam: Present normal affect and normal mood Skin Skin exam: Present warm, dry, intact and normal color Medical Decision Making Medical Records Medical records reviewed: No I reviewed the patient's medical records. Ananth Inquiry Pt receiving controlled substance: No Vital Signs: 01/19/24 08:20 Temperature 98.4 F Temperature Source Oral Pulse Rate [Right Radial] 78 Respiratory Rate 18 02 Sat by Pulse Oximetry 96 Oxygen Delivery Method Room Air Lab Data Lab results reviewed: Yes I reviewed the patient's lab results.
[2024-01-19 08:43] LABS: UTC Strep Screen (Rapid) Negative (Negative)
[2024-01-19 08:44] LABS: UTC Influenza A Antigen Negative (Negative); UTC Influenza B Antigen Negative (Negative)
[2024-01-19 09:10] VITALS: BP 0/0; PULSE 78; RESP 18; TEMP 36.9; O2SAT 96
[2024-01-19 09:12] LABS: Coronavirus 19, PCR Not Detected (NotDetected); Influenza A, PCR Not Detected (NotDetected); Influenza B, PCR Not Detected (NotDetected)
== END 2024-01-19 09:10 | disposition home or self-care (01) ==
PROVIDERS: Emergency Provider Nurse Practitioner Family
DX: J20.9 Acute bronchitis, unspecified (principal); J02.9 Acute pharyngitis, unspecified; B34.9 Viral infection, unspecified; R50.9 Fever, unspecified; R51.9 Headache, unspecified; R09.81 Nasal congestion; F17.210 Nicotine dependence, cigarettes, uncomplicated
CPT/HCPCS: 87636; 87804; 87880; 99212; 99214; G0463

== ENCOUNTER 2024-02-22 13:44 | Emergency (ER) | payer BC, SELFPAY ==
[2024-02-22 13:44] VITALS: BP 116/76; PULSE 74; RESP 20; TEMP 36.7; O2SAT 100; BMI 53.0
--- NOTE | 2024-02-22 13:47 | ECG_ITS ---
APPROVED REPORT Exam: Resting ECG HR:77 bpm ECG Measurements Heart Rate 77 AXES NE 171 P 52 QRSd 109 QRS 51 QT 381 T 61 QTc 413 Conclusion SINUS RHYTHM NORMAL ECG Electronically signed by : CHERI BAY, 02/24/2024 00:26:38
[2024-02-22 13:48] VITALS: BP 116/76; PULSE 76; O2SAT 98
[2024-02-22 13:52] VITALS: PULSE 74
--- NOTE | 2024-02-22 14:12 | XR_ITS ---
FINAL REPORT TECHNIQUE: Chest PA & Lateral CLINICAL HISTORY: chest pain rad down L arm COMPARISON: None FINDINGS: 2 views of the chest were performed. The heart size is normal. The mediastinum is within normal limits. There is no acute cardiopulmonary process. There are no pleural effusions. There is no pneumothorax. The bony thorax appears intact. IMPRESSION: No acute cardiopulmonary process. Reviewed, Interpreted and Dictated by Peter Balderrama MD Transcribed by Christy Gurrola Authenticated and [facility]
--- NOTE | 2024-02-22 14:17 | ED_ITS ---
Discharge Plan Disposition Patient Disposition: Home, Self-Care Condition: Good Prescriptions Prescriptions: No Action amitriptyline 25 mg tablet 25 mg PO DAILY bupropion HCl 150 mg tablet extended release 24 hr 150 mg PO DAILY methylprednisolone 4 mg Tablets,Dose Pack 4 mg PO DIRECTED 6 Days Qty: 21 0RF Rx Instructions: Take 1 pack as directed for 6 days [id number] [Bromfed DM] 2-30-10 mg/5 mL Syrup 5 ml PO Q6H PRN (Reason: Cough) Qty: 240 0RF azithromycin [Zithromax] 250 mg tablet 250 mg PO UD DOSE PK Qty: 6 0RF Rx Instructions: Take two (2) tablets today, then one (1) tablet days #2 thru #5 methylprednisolone 4 mg Tablets,Dose Pack 4 mg PO DIRECTED 6 Days Qty: 21 0RF Rx Instructions: Take 1 pack as directed for 6 days [id number]-[id number] [Bromfed DM] 2-30-10 mg/5 mL Syrup 5 ml PO Q6H PRN (Reason: Cough) Qty: 240 0RF Referrals Follow up/Referrals: Provider,Referral, MD [Primary Care Provider] - See instructions Activity Restrictions/Add. Instructions Additional Instructions/Restrictions: You were evaluated in the emergency department today. Please follow-up closely with your primary care provider and keep your appointment for MRI and neurology. It is possible your symptoms could be related to anxiety. 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 Return to the emergency department for new or worsening symptoms. Clinical Impressions Clinical Impression: Chest pain, Headache Instructions Patient Instructions: DI for Migraine, DI for Atypical Chest Pain, DI for Headache Discharge ED Provider: Griselda Roberts [facility] General Chief Complaint: Chest Pain Stated Complaint: Chest Pain Time Seen by Provider: 02/22/24 13:54 Mode of Arrival: Ambulatory Source of Information: Patient and Significant Other Limitations: No Limitations Description of Symptoms (Recalled from ER Triage Doc. by RN): pt cc is chest pain that sharp in nature and stars in the middle of chest and goes to the left, pt took tylenol and motrin for pain at 1100, pt also has nasuea and dizziness with the pain. pt recent;y had echo and ekg done by heart dr in [place] and it was WNL. pt sent holter monitor off today to be read. History of Present Illness HPI narrative: This patient is a 23-year-old female who has history of anxiety presenting to the emergency department for evaluation with concern for chest pain that is sharp and radiates down her left arm. She states that it started earlier this morning while she was at work. She took Tylenol and Motrin around 11 AM without good improvement. She also has felt nauseated and lightheadedness with the pain. She states she feels generally weak all over. She recently had an echocardiogram and EKG done by a physician in [place] and she states that it was normal. She also sent a Holter monitor off today to be read. Of note, she is also being worked up for absent spells in which she stares into space. She is awaiting neurology evaluation in March and also has an MRI scheduled for tomorrow. She states her primary care provider is unsure if this is related to complex migraines or if it could be possible seizure-like activity Related Data Home Medications Medication Instructions Recorded Confirmed amitriptyline 25 mg tablet 25 mg PO DAILY 10/11/23 11/07/23 bupropion HCl 150 mg 24 hr tablet, 150 mg PO DAILY 10/11/23 11/07/23 extended release Previous Rx's Medication Instructions Recorded pbtulihskinffym-aziqeceknkginxw-ZG 5 ml PO Q6H PRN Cough #240 mL 11/07/23 2 mg-30 mg-10 mg/5 mL oral syrup (Bromfed DM) methylprednisolone 4 mg tablets in 4 mg PO DIRECTED 6 days #21 tabs 11/07/23 a dose pack azithromycin 250 mg tablet 250 mg PO UD DOSE PK #6 tabs 01/19/24 (Zithromax) ilhweucwlcgzmlb-sqkahufvobplnjb-KK 5 ml PO Q6H PRN Cough #240 mL 01/19/24 2 mg-30 mg-10 mg/5 mL oral syrup (Bromfed DM) methylprednisolone 4 mg tablets in 4 mg PO DIRECTED 6 days #21 tabs 01/19/24 a dose pack Allergies Allergy/AdvReac Type Severity Reaction Status Date / Time No Known Allergies Allergy Verified 01/19/24 09:09 [facility] Disclaimer: The information contained in this section may have been updated after the patient was seen, as this information can be updated by other users. 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 Anemia Depression Anxiety Surgical History History of tonsillectomy Social History Smoking Status: Current every day smoker alcohol intake: never current occupational status: employed Travel in the last 8 weeks: None ROS Obtained: Yes All systems reviewed & no additional complaints except as documented Physical Exam General General appearance: alert, in no apparent distress and obese Head Head exam: atraumatic and normocephalic Eye Eye exam: Present normal appearance, PERRL and EOMI ENT ENT exam: Present normal exam, normal oropharynx, mucous membranes moist and normal external ear exam Neck Neck exam: Present normal inspection, full ROM and trachea midline; Absent tenderness Chest Chest inspection: Present normal inspection and symmetric chest wall rise; Absent tenderness Respiratory Respiratory exam: Present normal lung sounds bilaterally; Absent respiratory distress, wheezes, stridor or accessory muscle use Cardiovascular Cardiovascular exam: Present regular rate and normal rhythm Abdominal Exam Abdominal exam: Present soft; Absent distention, tenderness or guarding Extremities Exam Extremities exam: Present normal inspection, full ROM and normal capillary refill; Absent tenderness or edema Back Exam Back exam: Present normal inspection and full ROM; Absent tenderness Neurological Exam Neurological exam: Present alert, oriented X3, CN II-XII intact and normal gait; Absent motor sensory deficit Expanded Neurological Exam Patient oriented to: Present person, place and time Speech: Present fluid speech Cranial nerves: Normal: EOM function (II, III, IV, ), facial sensation (V), facial palsy (VII), spinal accessory function (XI) and tongue deviation (XII) Cerebellar function: Normal: finger to nose and heel to bo Motor strength - LUE: 5/5 Motor strength - RUE: 5/5 Motor strength - LLE: 5/5 Motor strength - RLE: 5/5 Upper motor neuron exam: Normal: josiah neglect Sensory exam upper extremity: Normal: light touch Sensory exam lower extremity: Normal: light touch Coma scale eye opening: Spontaneous Coma scale motor response: Obeys commands Coma scale verbal response: Oriented Coma scale total: 15 Psychiatric Psychiatric exam: Present normal affect and normal mood Skin Skin exam: Present warm and dry HEART Score HEART Score HEART Score assessment performed?: Yes History (anamnesis): Slightly suspicious ECG: Normal Age: <45 years Risk factors: No known risk factors Troponin: </= normal limit HEART Score: 0 Critical Care Critical Care Time Critical Care Time: No Medical Decision Making Medical Records Medical records reviewed: Yes I reviewed the patient's medical records. Ananth Inquiry Pt receiving controlled substance: No Vital Signs Vital Signs: 02/22/24 13:44 02/22/24 13:48 02/22/24 13:52 Temperature 98.0 F Temperature Source Oral Pulse Rate 76 74 Pulse Rate [Right Radial] 74 Respiratory Rate 20 Blood Pressure 116/76 Blood Pressure [Right Arm] 116/76 Blood Pressure Mean [Right Arm] 89 02 Sat by Pulse Oximetry 100 98 Oxygen Delivery Method Room Air Lab Data Labs: Lab Results 02/22/24 13:55: WBC 8.7, RBC 4.72, Hgb 13.3, Hct 41.0, MCV 86.8, MCH 28.2, MCHC 32.4, RDW 14.1, Plt Count 303, MPV 8.1, Neut % (Auto) 65.7, Lymph % (Auto) 26.4, [place] % (Auto) 4.5, Eos % (Auto) 2.6, Baso % (Auto) 0.7, Neut # (Auto) 5.7, Lymph # (Auto) 2.3, [place] # (Auto) 0.4, Eos # (Auto) 0.2, Baso # (Auto) 0.1, Sodium 141, Potassium 4.1, Chloride 104, Carbon Dioxide 32 H, Anion Gap 9.1, BUN 15, Creatinine 0.90, Estimated Creat Clear 76, Estimated GFR 76, Est GFR ( Amer) 92, Glucose 91, Calcium 9.5, Total Bilirubin 0.4, AST 24, ALT 24, Alkaline Phosphatase 67, Troponin I < 0.01, Total Protein 7.4, Albumin 4.2, Globulin 3.2, Albumin/Globulin Ratio 1.3, Serum HCG, Qual Negative 02/22/24 13:55 02/22/24 13:55 Response Orders (Tests/Meds): ED MEDICATIONS Generic Name Dose Route Start Last Admin Trade Name Freq PRN Reason Stop Dose Admin Lactated Ringer's 500 mls @ 999 mls/hr 02/22/24 15:20 Lactated Ringer's 1000 Ml Bag IV 02/22/24 15:50 .Q31M ONE Discontinued Medications Generic Name Dose Route Start Last Admin Trade Name Freq PRN Reason Stop Dose Admin Diphenhydramine HCl 25 mg 02/22/24 15:19 Diphenhydramine 50mg/Ml Vial IV 02/22/24 15:20 ONCE ONE Ketorolac Tromethamine 15 mg 02/22/24 15:19 Ketorolac 30mg/Ml Vial IV 02/22/24 15:20 ONCE ONE Prochlorperazine Edisylate 5 mg 02/22/24 15:19 Prochlorperazine 10mg/2ml Vial IV 02/22/24 15:20 ONCE ONE ORDERS Category Date Time Status XR chest 2V Stat Exams 02/22/24 14:12 Taken Complete Blood Count Auto Diff Stat Lab 02/22/24 13:55 Completed Comprehensive Metabolic Panel Stat Lab 02/22/24 13:55 Completed HCG Qualitative, Serum Stat Lab 02/22/24 13:55 Completed Troponin I Q3H Lab 02/22/24 17:15 Ordered Troponin I Q3H Lab 02/22/24 20:15 Ordered Troponin I Stat Lab 02/22/24 13:55 Completed ECG Data Tracing #1: Attestation: I reviewed this ECG and interpreted as documented below: ECG Narrative: Normal sinus rhythm with a ventricular rate of [address] changes concerning for ischemia. Normal axis and intervals. ECG initial impression date: 02/22/24 ECG initial impression time: 13:51 MDM Narrative Medical Decision Narrative: In summary, this patient is a 23-year-old female presenting to the Emergency Department for evaluation of chest pain. Differential diagnoses considered include but are not limited to ACS, dysrhythmia, PE, anxiety, GERD, costochondritis. Ruling out the most morbid conditions drove assessment. I reviewed patient's past medical records and noted previous evaluations for chest pain as well as headache with negative CT head and CT angiogram in August 21. On exam, the patient is resting comfortably with normal vital signs on cardiac telemetry. She is neurologically intact with reassuring cardiopulmonary exam. EKG obtained is reassuring. Workup included CBC, CMP, troponin, test, and chest x-ray. Patient is PERC negative for pulmonary embolus. I independently interpreted x-ray prior to the radiologist read and noted no acute focal consolidation, pneumothorax, or cardiomegaly. Please see their read for final interpretation. Labs were obtained that demonstrated no acutely concerning abnormalities with negative troponin. On reassessment, patient is resting comfortably and states that she has had issues like this before and it was related to anxiety. I discussed with her that we could obtain a second troponin given that her symptoms started today, however she states that she does not feel that this is necessary. She does complain of a headache at this time and is requesting something for her headache. She was given a migraine cocktail with a small bolus of IV fluids as well as IV Toradol, Compazine, and Benadryl. At this time based on reassuring history, exam, and shared decision-making with the patient, patient was deemed to be appropriate for discharge. Strict return precautions were given, and the patient was discharged after all questions were answered.
[2024-02-22 14:54] LABS: Basophils # 0.1 K/mm3 (0-0.2); Basophils % 0.7 % (0.1-2.0); Eosinophils # 0.2 K/mm3 (0.0-0.4); Eosinophils % 2.6 % (0.1-12.0); Hemoglobin 13.3 g/dL (12.2-16.2); Lymphocytes # 2.3 K/mm3 (0.7-4.5); Lymphocytes % 26.4 % (10-50); Mean Corpuscular HGB Conc 32.4 g/dL (31.8-35.4); Mean Corpuscular Hemoglobin 28.2 pg (27.0-31.2); Mean Corpuscular Volume 86.8 fl (81-99); Mean Platelet Volume 8.1 fl (7.4-10.4); Monocytes # 0.4 K/mm3 (0.1-1.0); Monocytes % 4.5 % (1.7-9.3); Neutrophils # 5.7 K/mm3 (1.8-7.8); Neutrophils % 65.7 % (37.0-80.0); Platelet Count 303 K/mm3 (142-424); Red Blood Count 4.72 M/mm3 (4.20-5.40); Red Cell Distribution Width 14.1 % (11.5-17.5); White Blood Count 8.7 K/mm3 (4.8-10.8)
[2024-02-22 14:55] LABS: Alanine Aminotransferase 24 U/L (12-78); Albumin Level 4.2 g/dl (3.5-5.0); Albumin/Globulin Ratio 1.3 (1.1-1.8); Alkaline Phosphatase 67 U/L (38-126); Anion Gap 9.1 mEq/L (5-15); Aspartate Amino Transferase 24 U/L (14-36); Bilirubin,Total 0.4 mg/dl (0.2-1.3); Blood Urea Nitrogen 15 mg/dl (7-17); Calcium 9.5 mg/dl (8.4-10.2); Carbon Dioxide 32 mmol/L (22.0-30.0); Chloride 104 mmol/L (98-107); Creatinine Clearance Estimated 76 mL/min (50-200); Estimated Glomerular Filt Rate 76 ml/min (>60); GFR (African American) 92 ML/MIN (>60); Globulin 3.2 g/dL (1.3-3.2); Glucose 91 mg/dl (74-100); Potassium 4.1 mmoL/L (3.5-5.1); Sodium 141 mmol/L (136-145); Total Protein,Serum 7.4 g/dl (6.3-8.2)
[2024-02-22 15:02] LABS: HCG Qualitative, Serum Negative (Negative)
[2024-02-22 15:08] LABS: Troponin I < 0.01 ng/ml (0.00-0.034)
[2024-02-22] MEDS: diphenhydrAMINE 50MG/ML VIAL 25 MG IV (15:45)
[2024-02-22] MEDS: PROCHLORPERAZINE 10MG/2ML VIAL 5 MG IV (15:46)
[2024-02-22] MEDS: KETOROLAC 30MG/ML VIAL 15 MG IV (15:46)
[2024-02-22] MEDS: LACTATED RINGERS 1000ML 500 ML 999 ML IV (15:46)
[2024-02-22 16:15] VITALS: BP 119/71; PULSE 74; RESP 18; TEMP 36.8; O2SAT 98
== END 2024-02-22 16:42 | disposition home or self-care (01) ==
PROVIDERS: Emergency Provider Emergency Medicine
DX: R07.9 Chest pain, unspecified (principal); R51.9 Headache, unspecified; F17.210 Nicotine dependence, cigarettes, uncomplicated
CPT/HCPCS: 71046; 80053; 84484; 84703; 85025; 93005; 96361; 96374; 96375; 99284

== ENCOUNTER 2024-07-18 08:26 | Emergency (ER) | payer BC, SELFPAY ==
[2024-07-18 08:42] VITALS: BP 103/60; PULSE 95; RESP 20; TEMP 36.7; O2SAT 96; BMI 53.9
--- NOTE | 2024-07-18 08:50 | EXP.UTC ---
Discharge Plan Disposition Patient Disposition: Home, Self-Care Condition: Good Prescriptions Prescriptions: New amoxicillin 875 mg tablet 875 mg PO Q12H Qty: 20 0RF benzonatate 100 mg capsule 100 mg PO TID PRN (Reason: cough) Qty: 30 0RF methylprednisolone [Medrol (Kaleb)] 4 mg tablets,dose pack See Rx Instructions .Route .COMPLEX 6 Days Qty: 21 0RF Rx Instructions: taper pack; No Action amitriptyline 25 mg tablet 25 mg PO DAILY bupropion HCl 150 mg tablet extended release 24 hr 150 mg PO DAILY Referrals Follow up/Referrals: Provider,Referral, MD [Primary Care Provider] - See instructions Activity Restrictions/Add. Instructions Additional Instructions/Restrictions: *Monitor Temp, Over the counter Motrin or Tylenol as directed/as needed Tylenol every 4 hours and Motrin every 6 hours (as long as your family doctor has told you that you can take it) for fever or pain. and straight to ER if unable to lower temp less than 101.0 after medication given *Warm salt water gargles may help to soothe the throat *Throat Lozenges? *Warm fluids like tea with honey may help to soothe the throat? *Sleep elevated *Humidifier/Vaporizer Take medication as prescribed Your throat swab was sent for culture. Those results are typically sent to your primary care. Be sure to follow up in 2-3 days with your family doctor/primary care physician if no improvement so they can review those result and treat if necessary. If you don?t have a primary care doctor, I recommend you get one but in the mean time, you will have to return to a walk in clinic Follow up IMMEDIATELY for new or worsening symptoms or no Noticeable improvement over the next 48-72 hours. 911 for difficulty breathing or swallowing Clinical Impressions Clinical Impression: Otitis media Instructions Patient Instructions: Middle Ear Infection, Ear Infections (Alternative Therapy) Print Language Print Language: Uzbek Discharge ED Provider: Evelina Maynard [facility] HPI General Stated complaint: sore throat, cough, past fever Mode of Arrival: Ambulatory Source of Information: Patient Time Seen by Provider: 07/18/24 08:50 Description of Symptoms (Recalled from Triage Doc. by RN): SORE THROAT, FEVERS, HEADACHE, COUGH HEENT Symptoms (Recalled from RN notes): Yes Resp Symptoms (Recalled from RN notes): Yes Skin Symptoms (Recalled from RN notes): No MS Symptoms (Recalled from RN notes): No Functional Status (Recalled from RN notes): WNL History of Present Illness Provider Complaint: Patient states that she has been having sore throat, ear pain/pressure, cough and fever worse since yesterday and today she is loosing her voice so she came in to get checked worried that she may have strep throat Related Data Home Medications ?Medication ?Instructions ?Recorded ?Confirmed amitriptyline 25 mg tablet 25 mg PO DAILY 10/11/23 07/18/24 bupropion HCl 150 mg 24 hr tablet, 150 mg PO DAILY 10/11/23 07/18/24 extended release Previous Rx's ?Medication ?Instructions ?Recorded amoxicillin 875 mg tablet 875 mg PO Q12H #20 tabs 07/18/24 benzonatate 100 mg capsule 100 mg PO TID PRN cough #30 caps 07/18/24 methylprednisolone 4 mg tablets in See Rx Instructions .Route 07/18/24 a dose pack (Medrol (Kaleb)) .COMPLEX 6 days #21 tabs Allergies Allergy/AdvReac Type Severity Reaction Status Date / Time No Known Allergies Allergy Verified 01/19/24 09:09 Worker's Comp Is this a Worker's Comp case?: No [facility] Disclaimer: The information contained in this section may have been updated after the patient was seen, as this information can be updated by other users. 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 Anemia Depression Anxiety Surgical History History of tonsillectomy Social History Smoking Status: Current every day smoker alcohol intake: never current occupational status: employed Travel in the last 8 weeks: None ROS Obtained: Yes All systems reviewed & no additional complaints except as documented and Yes Systems reviewed as appropriate & no additional complaints except as documented Constitutional Constitutional: Reports system reviewed and no additional complaints, except as documented, Reports as per HPI, Reports body ache, Reports fever(s) and Reports headache(s) ENT Ears, Nose, Mouth, and Throat: Reports system reviewed and no additional complaints, except as documented, Reports as per HPI, Reports otalgia, Reports headache(s), Reports nasal congestion and Reports sore throat Cardiovascular Cardiovascular: Reports system reviewed and no additional complaints, except as documented and Reports as per HPI Respiratory Respiratory: Reports system reviewed and no additional complaints, except as documented, Reports as per HPI and Reports cough Neurologic Neurologic: Reports headache(s) Physical Exam General General appearance: alert and in no apparent distress ENT ENT exam: Present mucous membranes moist Expanded ENT Exam TM/Canal exam: Left TM: erythema and bulging Nose exam: Present sinus tenderness Throat exam: Present other (pharygeal erythema noted with PND) Respiratory Respiratory exam: Present normal lung sounds bilaterally; Absent respiratory distress or wheezes Cardiovascular Cardiovascular exam: Present regular rate, normal rhythm and normal heart sounds Abdominal Exam Abdominal exam: Present soft and normal bowel sounds; Absent distention or tenderness Neurological Exam Neurological exam: Present alert, oriented X3 and normal gait Medical Decision Making Medical Records Screening: Per USPSTF and CDC recommendations, given the prevalence of disease in our region, it is our hospital?s policy to screen for HIV and viral Hepatitis for all patients aged 18 and over and those with ongoing risk factors. Ananth Inquiry Pt receiving controlled substance: No Ananth was queried for this patient: No Vital Signs: 07/18/24 08:42 Temperature 98.1 F Temperature Source Oral Pulse Rate [Left Brachial] 95 H Respiratory Rate 20 Blood Pressure [Left Arm] 103/60 L Blood Pressure Mean [Left Arm] 74 02 Sat by Pulse Oximetry 96 Lab Data Lab results reviewed: Yes I reviewed the patient's lab results.
[2024-07-18 08:52] LABS: UTC Strep Screen (Rapid) Negative (Negative)
[2024-07-18 08:59] VITALS: BP 103/60; PULSE 95; RESP 20; TEMP 36.7
== END 2024-07-18 09:01 | disposition home or self-care (01) ==
PROVIDERS: Emergency Provider Nurse Practitioner
DX: H66.92 Otitis media, unspecified, left ear (principal); R50.9 Fever, unspecified; R05.9 Cough, unspecified; R07.0 Pain in throat
CPT/HCPCS: 87880; 99212; 99214; G0463

== ENCOUNTER 2024-08-23 11:14 | Emergency (ER) | payer BC, SELFPAY ==
[2024-08-23 11:28] VITALS: BP 103/66; PULSE 85; RESP 20; TEMP 37.1; O2SAT 99; BMI 53.0
--- NOTE | 2024-08-23 11:36 | ED_ITS ---
Discharge Plan Disposition Patient Disposition: Home, Self-Care Condition: Good Prescriptions Prescriptions: New amoxicillin 875 mg tablet 875 mg PO Q12H Qty: 20 0RF methylprednisolone 4 mg Tablets,Dose Pack 4 mg PO DIRECTED 6 Days Qty: 21 0RF Rx Instructions: Take 1 pack as directed for 6 days No Action amitriptyline 25 mg tablet 25 mg PO DAILY bupropion HCl 150 mg tablet extended release 24 hr 150 mg PO DAILY diltiazem HCl 120 mg capsule,extended release 24hr 120 mg PO DAILY Referrals Follow up/Referrals: Provider,Referral, MD [Primary Care Provider] - See instructions Activity Restrictions/Add. Instructions Additional Instructions/Restrictions: Drink plenty of fluids. Take tylenol or ibuprofen for pain or fever. Take the medications as directed. Follow up with your regular doctor. GO TO THE ER FOR ANY WORSENING SYMPTOMS Clinical Impressions Clinical Impression: Sinusitis Otitis media Qualifiers: Otitis media type: unspecified Laterality: left Qualified Code(s): H66.92 - Otitis media, unspecified, left ear Instructions Patient Instructions: Middle Ear Infection, DI for Sinusitis Print Language Print Language: Belarusian Discharge ED Provider: Abelino Edwards [facility] General Stated complaint: Pain in L ear Mode of Arrival: Ambulatory Source of Information: Patient Time Seen by Provider: 08/23/24 11:36 Description of Symptoms (Recalled from Triage Doc. by RN): PAIN IN LEFT EAR HEENT Symptoms (Recalled from RN notes): Yes Resp Symptoms (Recalled from RN notes): No Skin Symptoms (Recalled from RN notes): No MS Symptoms (Recalled from RN notes): No Functional Status (Recalled from RN notes): WNL Related Data Home Medications ?Medication ?Instructions ?Recorded ?Confirmed amitriptyline 25 mg tablet 25 mg PO DAILY 10/11/23 08/23/24 bupropion HCl 150 mg 24 hr tablet, 150 mg PO DAILY 10/11/23 08/23/24 extended release diltiazem HCl 120 mg 120 mg PO DAILY 08/23/24 08/23/24 capsule,extended release 24 hr Previous Rx's ?Medication ?Instructions ?Recorded amoxicillin 875 mg tablet 875 mg PO Q12H #20 tabs 08/23/24 methylprednisolone 4 mg tablets in 4 mg PO DIRECTED 6 days #21 tabs 08/23/24 a dose pack Allergies Allergy/AdvReac Type Severity Reaction Status Date / Time No Known Allergies Allergy Verified 01/19/24 09:09 Worker's Comp Is this a Worker's Comp case?: No [facility] Disclaimer: The information contained in this section may have been updated after the michael tejada was seen, as this information can be updated by other users. 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 Anemia Depression Anxiety Surgical History History of tonsillectomy Social History Smoking Status: Current every day smoker alcohol intake: never current occupational status: employed Travel in the last 8 weeks: None ROS Obtained: Yes All systems reviewed & no additional complaints except as documented Constitutional Constitutional: Denies chills, Reports fever(s) and Reports poor appetite Eyes Eyes: Denies eye discharge ENT Ears, Nose, Mouth, and Throat: Denies ear discharge, Reports otalgia, Denies hearing loss, Denies sinus pain and Reports sore throat Cardiovascular Cardiovascular: Denies chest pain and Denies dyspnea Respiratory Respiratory: Denies chest congestion, Reports cough and Denies dyspnea Gastrointestinal Gastrointestingal: Denies abdominal pain, diarrhea, nausea or vomiting Musculoskeletal Musculoskeletal: Denies arthralgias Integumentary/Breasts Skin/Breast: Denies rash Physical Exam General General appearance: alert and in no apparent distress Head Head exam: atraumatic, normocephalic and normal inspection Eye Eye exam: Present normal appearance; Absent PERRL or EOMI ENT ENT exam: Present mucous membranes moist and normal external ear exam Expanded ENT Exam TM/Canal exam: Bilateral TM: erythema, bulging and effusion Nose exam: Absent sinus tenderness Nasal speculum exam: Bilateral: normal Mouth exam: Present normal external inspection and other; Absent drooling Teeth exam: Present normal inspection Throat exam: Present tonsillar erythema and tonsillomegaly Neck Neck exam: Present normal inspection, full ROM and trachea midline; Absent tenderness, meningismus or lymphadenopathy Chest Chest inspection: Present normal inspection and symmetric chest wall rise; Absent tenderness Respiratory Respiratory exam: Present normal lung sounds bilaterally; Absent respiratory distress, wheezes or stridor Cardiovascular Cardiovascular exam: Present regular rate, normal rhythm and normal heart sounds; Absent tachycardia or irregular rhythm Abdominal Exam Abdominal exam: Present soft and normal bowel sounds; Absent distention, tenderness, guarding, rebound or rigidity Extremities Exam Extremities exam: Present normal inspection and normal capillary refill; Absent tenderness, joint swelling or calf tenderness Back Exam Back exam: Present normal inspection and full ROM; Absent tenderness, CVA tender ness (R) or CVA tenderness (L) Neurological Exam Neurological exam: Present alert, oriented X3, CN II-XII intact, normal gait and reflexes normal; Absent motor sensory deficit Psychiatric Psychiatric exam: Present normal affect and normal mood Skin Skin exam: Present warm, dry, intact and normal color Lymphatic Lymphatic Findings: no adenopathy Medical Decision Making Medical Records Medical records reviewed: No I reviewed the patient's medical records. Screening: Per USPSTF and CDC recommendations, given the prevalence of disease in our region, it is our hospital?s policy to screen for HIV and viral Hepatitis for all patients aged 18 and over and those with ongoing risk factors. Ananth Inquiry Pt receiving controlled substance: No Vital Signs: 08/23/24 11:28 Temperature 98.8 F Temperature Source Oral Pulse Rate [Left Brachial] 85 Respiratory Rate 20 Blood Pressure [Left Arm] 103/66 L Blood Pressure Mean [Left Arm] 78 02 Sat by Pulse Oximetry 99
[2024-08-23 11:45] VITALS: BP 103/66; PULSE 85; RESP 20; TEMP 37.1
== END 2024-08-23 11:47 | disposition home or self-care (01) ==
PROVIDERS: Emergency Provider Nurse Practitioner Family
DX: J01.90 Acute sinusitis, unspecified (principal); H66.93 Otitis media, unspecified, bilateral
CPT/HCPCS: 99213; G0381

== ENCOUNTER 2024-08-25 07:16 | Emergency (ER) | payer BC, SELFPAY ==
[2024-08-25] VITALS (7 sets, daily range): BP systolic 107–140; BP diastolic 50–78; PULSE 66–89; RESP 13–18; TEMP 36.7–36.8; O2SAT 96–99; BMI 53.0
--- NOTE | 2024-08-25 07:26 | PC.NURSE ---
Dr. David at [facility] for pt eval
--- NOTE | 2024-08-25 07:33 | CT_ITS ---
PROCEDURE INFORMATION: Exam: CTA Abdomen and Pelvis With Contrast Exam date and time: 08/25/2024 9:15 AM Age: 24 years old Clinical indication: Injury or trauma; Fall; Blunt trauma; Lower abdominal or back area; Left; Additional info: Fall 10 steps/l side abd pain, subacute diarrhea TECHNIQUE: Imaging protocol: Computed tomographic angiography of the abdomen and pelvis with contrast. Exam focused on the arteries. 3D rendering (Not supervised by radiologist): MIP and/or 3D reconstructed images were created by the technologist. Radiation optimization: All CT scans at this facility use at least one of these dose optimization techniques: automated exposure control; mA and/or kV adjustment per patient size (includes targeted exams where dose is matched to clinical indication); or iterative reconstruction. Contrast material: ISOVUE 370; Contrast volume: 90 ml; Contrast route: INTRAVENOUS (IV); COMPARISON: CR XR CHEST 2V 02/22/2024 2:59 PM FINDINGS: Aorta: No aortic aneurysm. No aortic dissection. Celiac trunk and mesenteric arteries: No occlusion or significant stenosis. Renal arteries: No occlusion or significant stenosis. Right iliac arteries: No occlusion or significant stenosis. Left iliac arteries: No occlusion or significant stenosis. Liver: Fatty infiltration of the liver. Gallbladder and biliary ducts: Unremarkable. No calcified stones. No ductal dilation. Pancreas: Unremarkable. No mass. No ductal dilation. Spleen: Unremarkable. No splenomegaly. Adrenal glands: Unremarkable. No mass. Kidneys and ureters: Unremarkable. No solid mass. No hydronephrosis. Stomach and bowel: Unremarkable. No obstruction. No mucosal thickening. Appendix: No evidence of appendicitis. Intraperitoneal space: Unremarkable. No free air. No significant fluid collection. Lymph nodes: Unremarkable. No enlarged lymph nodes. Urinary bladder: Unremarkable. No mass. Reproductive: Unremarkable as visualized. Bones/joints: No acute fracture. Soft tissues: Unremarkable. IMPRESSION: Unremarkable CTA.
--- NOTE | 2024-08-25 07:33 | CT_ITS ---
PROCEDURE INFORMATION: Exam: CT Head Without Contrast Exam date and time: 08/25/2024 9:13 AM Age: 24 years old Clinical indication: Injury or trauma; Fall; Blunt trauma (contusions or hematomas); Additional info: Fell down 10 steps x 2 days ago TECHNIQUE: Imaging protocol: Computed tomography of the head without contrast. Radiation optimization: All CT scans at this facility use at least one of these dose optimization techniques: automated exposure control; mA and/or kV adjustment per patient size (includes targeted exams where dose is matched to clinical indication); or iterative reconstruction. COMPARISON: CT ANGIO HEAD 08/20/2023 9:25 PM FINDINGS: Brain: Normal. No hemorrhage. Unremarkable white matter. No mass effect. Cerebral ventricles: No ventriculomegaly. Paranasal sinuses: Visualized sinuses are unremarkable. No fluid levels. Mastoid air cells: Visualized mastoid air cells are well aerated. Bones: Unremarkable. No acute fracture. Soft tissues: Unremarkable. IMPRESSION: No acute intracranial abnormality.
--- NOTE | 2024-08-25 07:35 | ED_ITS ---
Discharge Plan Disposition Patient Disposition: Home, Self-Care Prescriptions Prescriptions: New ondansetron 4 mg tablet,disintegrating 4 mg PO Q8H PRN (Reason: nausea and vomiting) 4 Days Qty: 12 0RF dicyclomine 10 mg capsule 20 mg PO QID PRN (Reason: abdominal pain) Qty: 24 0RF No Action amitriptyline 25 mg tablet 25 mg PO DAILY bupropion HCl 150 mg tablet extended release 24 hr 150 mg PO DAILY diltiazem HCl 120 mg capsule,extended release 24hr 120 mg PO DAILY amoxicillin 875 mg tablet 875 mg PO Q12H Qty: 20 0RF methylprednisolone 4 mg Tablets,Dose Pack 4 mg PO DIRECTED 6 Days Qty: 21 0RF Rx Instructions: Take 1 pack as directed for 6 days Referrals Follow up/Referrals: Sanford Aiken II, MD [Staff Physician] - See instructions Provider,MD Thiago [Primary Care Provider] - See instructions Activity Restrictions/Add. Instructions Additional Instructions/Restrictions: At this time it was felt you are safe to be discharged home. If new or worsening symptoms please do not hesitate to return the emergency department. Please continue to take antibiotics for your ear infection and take your other medications as prescribed. For your chronic diarrhea it may be worthwhile to call and schedule an appointment with Dr. Aiken. Clinical Impressions Clinical Impression: Abdominal pain, Otitis media, Diarrhea Instructions Patient Instructions: DI for Acute Abdominal Pain Print Language Print Language: Bel[place]ian Discharge ED Provider: Reza David General Adult HPI General Chief complaint: Abdominal Pain Stated complaint: abd pain Time Seen by Provider: 08/25/24 07:19 Mode of Arrival: Ambulatory Source of Information: Patient and Spouse Limitations: No Limitations Description of Symptoms (Recalled from ER Triage Doc. by RN): left sided abdominal pain. radiates to the flank. History of Present Illness HPI narrative: Patient is a 24-year-old female with recently diagnosed ear infection on amoxicillin who presents emergency department for evaluation of abdominal pain. Patient states that a few days ago she fell down approximately 10 steps onto her left side and head without loss of consciousness. She has also been recently diagnosed with a double ear infection and has started amoxicillin. There is also associated subacute nonbloody diarrhea and nausea for which has not happened before. She has had left-sided abdominal pain that ultimately caused her to present here for continued evaluation. Last menstrual period approximately a month ago, no blood in her stool, no dysuria or vaginal discharge. No chest pain reported. No other acute complaints at this time. Related Data Home Medications ?Medication ?Instructions ?Recorded ?Confirmed amitriptyline 25 mg tablet 25 mg PO DAILY 10/11/23 08/23/24 bupropion HCl 150 mg 24 hr tablet, 150 mg PO DAILY 10/11/23 08/23/24 extended release diltiazem HCl 120 mg 120 mg PO DAILY 08/23/24 08/23/24 capsule,extended release 24 hr Previous Rx's ?Medication ?Instructions ?Recorded amoxicillin 875 mg tablet 875 mg PO Q12H #20 tabs 08/23/24 methylprednisolone 4 mg tablets in 4 mg PO DIRECTED 6 days #21 tabs 08/23/24 a dose pack dicyclomine 10 mg capsule 20 mg (2 x 10 mg) PO QID PRN 08/25/24 abdominal pain #24 caps ondansetron 4 mg disintegrating 4 mg PO Q8H PRN nausea and 08/25/24 tablet vomiting 4 days #12 tabs Allergies Allergy/AdvReac Type Severity Reaction Status Date / Time No Known Allergies Allergy Verified 01/19/24 09:09 [facility] Disclaimer: The information contained in this section may have been updated after the patient was seen, as this information can be updated by other users. 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 Anemia Depression Anxiety Surgical History History of tonsillectomy Social History Smoking Status: Former smoker alcohol intake: never current occupational status: employed Travel in the last 8 weeks: None ROS Obtained: Yes Systems reviewed as appropriate & no additional complaints except as documented Physical Exam General General appearance: alert and in no apparent distress Head Head exam: normocephalic and other (Small soft tissue hematoma over the superior occiput) Eye Eye exam: Present PERRL and EOMI ENT ENT exam: Present mucous membranes moist; Absent TM's normal bilaterally (Serous middle ear effusion left, purulent middle ear effusion right, pinna sign negative bilaterally) Neck Neck exam: Present normal inspection; Absent tenderness Chest Chest inspection: Present normal inspection and symmetric chest wall rise Respiratory Respiratory exam: Present normal lung sounds bilaterally; Absent respiratory distress Cardiovascular Cardiovascular exam: Present regular rate and normal rhythm Abdominal Exam Abdominal exam: Present soft and tenderness (Mild, left lower quadrant); Absent guarding or rebound Extremities Exam Extremities exam: Present other (Bruising right third toe dorsally, distal capillary refill intact. No tenderness over the right forefoot, ankle, remainder of extremities. Palpable bilateral dorsal pedal pulses.); Absent normal inspection Neurological Exam Neurological exam: Present alert and CN II-XII intact; Absent motor sensory deficit Psychiatric Psychiatric exam: Present normal affect Skin Skin exam: Present warm and dry Medical Decision Making Medical Records Screening: Per USPSTF and CDC recommendations, given the prevalence of disease in our region, it is our hospital?s policy to screen for HIV and viral Hepatitis for all patients aged 18 and over and those with ongoing risk factors. Ananth Inquiry Pt receiving controlled substance: No Vital Signs: 08/25/24 07:17 08/25/24 08:25 08/25/24 08:40 Temperature 98.2 F Temperature Source Oral Pulse Rate 82 70 Pulse Rate [Right] 77 Respiratory Rate 18 Blood Pressure 128/68 140/72 Blood Pressure [Right Arm] 119/77 Blood Pressure Mean [Right Arm] 91 02 Sat by Pulse Oximetry 98 98 96 Oxygen Delivery Method Room Air Room Air 08/25/24 09:23 08/25/24 09:41 Temperature Temperature Source Pulse Rate 66 70 Pulse Rate [Right] Respiratory Rate Blood Pressure 114/62 110/56 L Blood Pressure [Right Arm] Blood Pressure Mean [Right Arm] 02 Sat by Pulse Oximetry 99 99 Oxygen Delivery Method Room Air Lab Data Lab Results 08/25/24 07:23: Urine Color Yellow, Urine Appearance Clear, Urine pH 6.0, Ur Specific [place] 1.015, Urine Protein Negative, Urine Glucose (UA) Negative, Urine Ketones Negative, Urine Blood Negative, Urine Nitrate Negative, Urine Bilirubin Negative, Urine Urobilinogen 0.2, Ur Leukocyte Esterase Negative, Urine RBC None, Urine WBC None, Ur Squamous Epith Cells 5-10 08/25/24 08:22: WBC 11.6 H, RBC 4.90, Hgb 13.8, Hct 41.2, MCV 84.0, MCH 28.2, MCHC 33.5, RDW 13.9, Plt Count 315, MPV 8.3, Neut % (Auto) 86.8 H, Lymph % (Auto) 9.3 L, [place] % (Auto) 3.3, Eos % (Auto) 0.2, Baso % (Auto) 0.3, Neut # (Auto) 10.1 H, Lymph # (Auto) 1.1, [place] # (Auto) 0.4, Eos # (Auto) 0.0, Baso # (Auto) 0.0, Sodium 140, Potassium 4.2, Chloride 108 H, Carbon Dioxide 23, Anion Gap 13.2, BUN 11, Creatinine 0.60, Estimated Creat Clear 112, Estimated GFR 121, Est GFR ( Amer) 146, Glucose 134 H, Calcium 9.3, Total Bilirubin 0.4, AST 27, ALT 27, Alkaline Phosphatase 60, Total Protein 7.7, Albumin 4.4, Globulin 3.3 H, Albumin/Globulin Ratio 1.3, Lipase 39, Serum HCG, Qual Negative 08/25/24 08:22 08/25/24 08:22 Orders (Tests/Meds): ED MEDICATIONS Generic Name Dose Route Start Last Admin Trade Name Freq PRN Reason Stop Dose Admin Sodium Chloride 10 ml 08/25/24 09:23 08/25/24 09:24 Sodium Chloride 0.9% 10ml Syr (Rad Only) IV 09/24/24 09:22 10 ml NEEDED PRN Administration Maintain IV Site Discontinued Medications Generic Name Dose Route Start Last Admin Trade Name Freq PRN Reason Stop Dose Admin Acetaminophen 1,000 mg 08/25/24 07:33 08/25/24 08:26 Acetaminophen 1,000mg/100ml Vial IV 08/25/24 07:34 1,000 mg ONCE ONE Administration Iopamidol 90 ml 08/25/24 09:23 08/25/24 09:24 Iopamidol-370 (76%);100ml Bottle IV 08/25/24 09:24 90 ml ONCE ONE Administration Ondansetron HCl 4 mg 08/25/24 07:33 08/25/24 08:26 Ondansetron 4mg/2ml Vial IV 08/25/24 07:34 4 mg ONCE ONE Administration Sodium Chloride 50 ml 08/25/24 09:23 08/25/24 09:23 0.9 % Sodium Chloride 50 Ml Vial IV 08/25/24 09:24 50 ml ONCE ONE Administration ORDERS Category Date Time Status CT angio abdomen pelvis Stat Cat Scan 08/25/24 07:[address] head/brain wo con Stat Cat Scan 08/25/24 07:33 Completed CBC w/Auto Diff [Complete Blood Count Auto Diff] Stat Lab 08/25/24 08:22 Results CMP [Comprehensive Metabolic Panel] Stat Lab 08/25/24 08:22 Completed HCG Qualitative, Serum Stat Lab 08/25/24 08:22 Completed HIV (1&2) Antibody Rapid Stat Lab 08/25/24 08:22 Received Hep C Ab with Reflex to RNA Stat Lab 08/25/24 08:22 Received Lipase Stat Lab 08/25/24 08:22 Completed UA [Urinalysis and Microscopic] Stat Lab 08/25/24 07:23 Completed Medical Decision Narrative: In summary patient is a 24-year-old female past medical history described above presents emergency department for evaluation of left lower quadrant abdominal pain in the setting of recently diagnosed double ear infection on antibiotics, subacute diarrhea, recent fall. Patient is hemodynamically stable and nontoxic- appearing upon arrival, afebrile. Differential diagnosis includes streptococcal infection, antibiotic side effect that is predicted, bowel wall contusion or intra-abdominal hemorrhage, among others. Workup will be conducted with hematologic labs, urinalysis, CTA abdomen and pelvis with IV contrast, noncontrasted CT scan of the head. Initial inventions include Tylenol, Zofran. With respect to patient's bruised right third toe even if it was broken the definitive therapy is ro tape which will be conducted. Shared decision- making discussion was had as to the utility of imaging and will be deferred at this time given that patient has no forefoot or ankle tenderness that would change attendant. Initial workup reviewed by me, white blood cell count 11.6, no thrombocytopenia, no THI or critical electrolyte abnormality, hCG negative. Urinalysis interpreted by me and not consistent with infection. Noncontrasted CT scan of the head informally visualized by me, no acute large intracranial hemorrhage with midline shift. Formal read shows no acute pathology. CT abdomen pelvis unremarkable CTA. Plan repeat evaluation patient continued to be well-appearing and was tolerating p.o. Given this patient is appropriate for discharge at this time was given return precautions and will be discharged with a course of Bentyl and Zofran. Critical Care Critical Care Time Critical Care Time: No
--- NOTE | 2024-08-25 08:01 | PC.NURSE ---
Confirmed with [facility] in lab that they received urine sample
--- NOTE | 2024-08-25 08:04 | PC.NURSE ---
Pt difficult to obtain IV on. Called household refrigerator mechanic to come obtain u/s guided IV
[2024-08-25 08:11] LABS: Microscopic, Urine URINE MICROSCOPIC (MICROSCOPIC)
[2024-08-25 08:18] LABS: Appearance,Urine CLEAR (Clear); Bilirubin,Urine Negative (Negative); Blood, Urine Negative (Negative); Color,Urine YELLOW (Yellow); Glucose,Urine (UA) Negative (Negative); Ketones,Urine Negative (Negative); Leukocyte Esterase,Urine Negative (Negative); Nitrate,Urine Negative (Negative); Protein,Urine Negative (Negative); Specific Gravity, Urine 1.015 (1.005-1.030); Urobilinogen,Urine 0.2 EU/dl (0.2)
[2024-08-25] MEDS: ONDANSETRON 4MG/2ML VIAL 4 MG IV (08:26)
[2024-08-25] MEDS: ACETAMINOPHEN 1,000MG/100ML VIAL 1000 MG IV (08:26)
[2024-08-25 08:32] LABS: Basophils % 0.3 % (0.1-2.0); Eosinophils % 0.2 % (0.1-12.0); Hematocrit 41.2 % (37.0-47.0); Hemoglobin 13.8 g/dL (12.2-16.2); Lymphocytes # 1.1 K/mm3 (0.7-4.5); Lymphocytes % 9.3 % (10-50); Mean Corpuscular HGB Conc 33.5 g/dL (31.8-35.4); Mean Corpuscular Hemoglobin 28.2 pg (27.0-31.2); Mean Platelet Volume 8.3 fl (7.4-10.4); Monocytes # 0.4 K/mm3 (0.1-1.0); Monocytes % 3.3 % (1.7-9.3); Neutrophils # 10.1 K/mm3 (1.8-7.8); Neutrophils % 86.8 % (37.0-80.0); Platelet Count 315 K/mm3 (142-424); Red Cell Distribution Width 13.9 % (11.5-17.5); White Blood Count 11.6 K/mm3 (4.8-10.8)
[2024-08-25 08:39] LABS: MANUAL DIFFERENTIAL MANUAL DIFFERENTIAL (MANUAL DIFF)
[2024-08-25 08:58] LABS: Albumin Level 4.4 g/dl (3.5-5.0); Chloride 108 mmol/L (98-107); HCG Qualitative, Serum Negative (Negative); Potassium 4.2 mmoL/L (3.5-5.1); Sodium 140 mmol/L (136-145)
[2024-08-25 09:01] LABS: Alanine Aminotransferase 27 U/L (12-78); Albumin/Globulin Ratio 1.3 (1.1-1.8); Alkaline Phosphatase 60 U/L (38-126); Anion Gap 13.2 mEq/L (5-15); Aspartate Amino Transferase 27 U/L (14-36); Bilirubin,Total 0.4 mg/dl (0.2-1.3); Blood Urea Nitrogen 11 mg/dl (7-17); Calcium 9.3 mg/dl (8.4-10.2); Carbon Dioxide 23 mmol/L (22.0-30.0); Creatinine Clearance Estimated 112 mL/min (50-200); Estimated Glomerular Filt Rate 121 ml/min (>60); GFR (African American) 146 ML/MIN (>60); Globulin 3.3 g/dL (1.3-3.2); Glucose 134 mg/dl (74-100); Lipase 39 U/L (23-300); Total Protein,Serum 7.7 g/dl (6.3-8.2)
--- NOTE | 2024-08-25 09:05 | PC.NURSE ---
Pt gone to RAD via wheelchair
[2024-08-25] MEDS: 0.9 % SODIUM CHLORIDE 50 ML VIAL IV (09:23)
[2024-08-25] MEDS: IOPAMIDOL-370 (76%);100ML BOTTLE 90 ML IV (09:24)
[2024-08-25] MEDS: SODIUM CHLORIDE 0.9% 10ML SYR (RAD ONLY) 10 ML IV (09:24)
[2024-08-25 10:14] LABS: HIV (1&2) Antibody Rapid NONREACTIVE (NONREACTIVE)
[2024-08-25 10:57] LABS: Lymphocytes % 15 % (10-50); Monocytes % 3 % (2-9); Neutrophils % 82 % (42-76); Platelet Estimate Normal; RBC Morphology Normal; Total Cells Counted 100
[2024-08-27 05:10] LABS: HCV Ab Non Reactive (Non Reactive)
== END 2024-08-25 10:33 | disposition home or self-care (01) ==
PROVIDERS: Emergency Provider Emergency Medicine
DX: S09.90XA Unspecified injury of head, initial encounter (principal); R10.9 Unspecified abdominal pain; R19.7 Diarrhea, unspecified; R11.0 Nausea; H66.90 Otitis media, unspecified, unspecified ear; Z87.891 Personal history of nicotine dependence; W10.9XXA Fall (on) (from) unspecified stairs and steps, initial encounter; Y93.9 Activity, unspecified; Y92.89 Other specified places as the place of occurrence of the external cause
CPT/HCPCS: 70450; 74174; 80053; 81001; 83690; 84703; 85007; 85025; 85027; 86803; 87389; 96374; 96375; 99285; J0131; J2405; Q9967

== ENCOUNTER 2024-09-01 11:50 | Emergency (ER) | payer BC, SELFPAY ==
[2024-09-01 11:51] VITALS: BP 132/50; PULSE 88; RESP 18; TEMP 36.7; O2SAT 99; BMI 53.0
[2024-09-01 12:01] VITALS: BP 97/56; PULSE 85; O2SAT 98
--- NOTE | 2024-09-01 12:11 | XR_ITS ---
PROCEDURE INFORMATION: Exam: XR Chest Exam date and time: 09/01/2024 12:33 PM Age: 24 years old Clinical indication: Other: Chest pain TECHNIQUE: Imaging protocol: Radiologic exam of the chest. Views: 2 views. COMPARISON: CR XR CHEST 2V 02/22/2024 2:59 PM FINDINGS: Lungs: No consolidation or lung nodules. Pleural spaces: No pleural effusion. No pneumothorax. Heart/Mediastinum: No abnormalities. No cardiomegaly. No pulmonary vascular congestion. Bones/joints: No fractures or bone lesions. IMPRESSION: No acute findings in the chest. No interval change.
--- NOTE | 2024-09-01 12:14 | PC.NURSE ---
DR BAY AT BEDSIDE
[2024-09-01 12:22] LABS: Basophils # 0.1 K/mm3 (0-0.2); Basophils % 1.3 % (0.1-2.0); Eosinophils # 0.3 K/mm3 (0.0-0.4); Eosinophils % 2.8 % (0.1-12.0); Hematocrit 40.9 % (37.0-47.0); Hemoglobin 13.4 g/dL (12.2-16.2); Lymphocytes # 2.1 K/mm3 (0.7-4.5); Lymphocytes % 20.1 % (10-50); Mean Corpuscular HGB Conc 32.9 g/dL (31.8-35.4); Mean Corpuscular Hemoglobin 27.2 pg (27.0-31.2); Mean Corpuscular Volume 82.7 fl (81-99); Mean Platelet Volume 7.6 fl (7.4-10.4); Monocytes # 0.6 K/mm3 (0.1-1.0); Monocytes % 5.5 % (1.7-9.3); Neutrophils # 7.4 K/mm3 (1.8-7.8); Neutrophils % 70.3 % (37.0-80.0); Platelet Count 294 K/mm3 (142-424); Red Blood Count 4.94 M/mm3 (4.20-5.40); Red Cell Distribution Width 14.2 % (11.5-17.5); White Blood Count 10.5 K/mm3 (4.8-10.8)
[2024-09-01] MEDS: BELLADONNA ALKALOIDS 60 ML ML PO (12:26)
[2024-09-01] MEDS: KETOROLAC 30MG/ML VIAL 15 MG IV (12:26)
[2024-09-01 12:31] VITALS: BP 106/81; PULSE 86; RESP 20; O2SAT 98
[2024-09-01 12:36] LABS: D-Dimer 0.38 ug/mL (0.0-0.5)
[2024-09-01 12:39] LABS: Alanine Aminotransferase 27 U/L (12-78); Albumin Level 3.9 g/dl (3.5-5.0); Albumin/Globulin Ratio 1.6 (1.1-1.8); Alkaline Phosphatase 51 U/L (38-126); Anion Gap 10.8 mEq/L (5-15); Aspartate Amino Transferase 27 U/L (14-36); Bilirubin,Total 0.6 mg/dl (0.2-1.3); Blood Urea Nitrogen 19 mg/dl (7-17); Calcium 8.7 mg/dl (8.4-10.2); Carbon Dioxide 27 mmol/L (22.0-30.0); Chloride 105 mmol/L (98-107); Creatinine Clearance Estimated 84 mL/min (50-200); Estimated Glomerular Filt Rate 87 ml/min (>60); GFR (African American) 105 ML/MIN (>60); Globulin 2.5 g/dL (1.3-3.2); Glucose 90 mg/dl (74-100); HCG Qualitative, Serum Negative (Negative); Potassium 3.8 mmoL/L (3.5-5.1); Sodium 139 mmol/L (136-145); Total Protein,Serum 6.4 g/dl (6.3-8.2)
--- NOTE | 2024-09-01 12:41 | PC.NURSE ---
PT TO XR
[2024-09-01 12:42] LABS: Troponin I < 0.01 ng/ml (0.00-0.034)
[2024-09-01 13:01] VITALS: BP 94/52; PULSE 84; RESP 17; O2SAT 96
--- NOTE | 2024-09-01 13:01 | [facility].EDCP ---
Discharge Plan Disposition Patient Disposition: Home, Self-Care Condition: Good Prescriptions Prescriptions: No Action fluticasone propionate 50 mcg/actuation spray,suspension 1 spray intranasal DAILY Qty: 16 2RF Rx Instructions: administer into each nostril amoxicillin-pot clavulanate 875-125 mg tablet 1 tab PO BID 10 Days Qty: 20 0RF amitriptyline 25 mg tablet 25 mg PO DAILY bupropion HCl 150 mg tablet extended release 24 hr 150 mg PO DAILY diltiazem HCl 120 mg capsule,extended release 24hr 120 mg PO DAILY dicyclomine 10 mg capsule 20 mg PO QID PRN (Reason: abdominal pain) Qty: 24 0RF Referrals Follow up/Referrals: Stephanie Allen PA [Primary Care Provider] - See instructions Rk Anderson MD [Staff Physician] - See instructions Activity Restrictions/Add. Instructions Additional Instructions/Restrictions: You were evaluated in the emergency department today. Please follow-up very closely with your primary care provider as well as with cardiology. Return to the emergency department right away for new or worsening symptoms. Try taking Tylenol and ibuprofen at home to see if helps with your symptoms. Clinical Impressions Clinical Impression: Chest pain Stand Alone Forms Stand Alone Forms: Work/School Release Instructions Patient Instructions: DI for Atypical Chest Pain Print Language Print Language: Chinese Discharge ED Provider: Griselda Roberts HPI General Chief Complaint: Chest Pain Stated Complaint: Chest Pain Time Seen by Provider: 09/01/24 12:00 Mode of Arrival: Ambulatory Source of Information: Patient Limitations: No Limitations Description of Symptoms (Recalled from ER Triage Doc. by RN): PT REPORTS CHEST PRESSURE THAT STARTED ABOUT 2200 LAST NIGHT, WHILE AT REST. REPORTS PAIN/PRESSURE TO NECK AND LEFT ARM. REPORTS COUGH, NAUSEA AND HEADACHE History of Present Illness HPI narrative: This patient is a 24-year-old female with history of tachycardia on diltiazem and recurrent syncope in the past presenting to the emergency department for evaluation with concern for chest pain. Patient reports that it started about 10:00 PM last night while at rest. It is a pressure that radiates up into her left neck and down her left arm. She also notes a cough and nausea. Nothing seems make it better or worse. No other acute concerns noted at this time. Related Data Home Medications ?Medication ?Instructions ?Recorded ?Confirmed amitriptyline 25 mg tablet 25 mg PO DAILY 10/11/23 08/23/24 bupropion HCl 150 mg 24 hr tablet, 150 mg PO DAILY 10/11/23 08/23/24 extended release diltiazem HCl 120 mg 120 mg PO DAILY 08/23/24 08/23/24 capsule,extended release 24 hr Previous Rx's ?Medication ?Instructions ?Recorded dicyclomine 10 mg capsule 20 mg (2 x 10 mg) PO QID PRN 08/25/24 abdominal pain #24 caps amoxicillin 875 mg-potassium 1 tab PO BID 10 days #20 tabs 08/29/24 clavulanate 125 mg tablet fluticasone propionate 50 1 spray intranasal DAILY #16 grams 08/29/24 mcg/actuation nasal spray,suspension Allergies Allergy/AdvReac Type Severity Reaction Status Date / Time propranolol Allergy Unknown Rash Verified 08/30/24 21:15 [facility] Disclaimer: The information contained in this section may have been updated after the patient was seen, as this information can be updated by other users. 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 Anemia Depression Anxiety Surgical History History of tonsillectomy Social History Smoking Status: Former smoker alcohol intake: never current occupational status: employed Travel in the last 8 weeks: None Other 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 Have you received the Pneumonia Vaccine: No ROS Obtained: Yes All systems reviewed & no additional complaints except as documented Physical Exam General General appearance: alert, in no apparent distress and obese Head Head exam: atraumatic and normocephalic Eye Eye exam: Present normal appearance, PERRL and EOMI ENT ENT exam: Present normal exam, normal oropharynx, mucous membranes moist and normal external ear exam Neck Neck exam: Present normal inspection, full ROM and trachea midline; Absent tenderness Chest Chest inspection: Present normal inspection and symmetric chest wall rise; Absent tenderness Respiratory Respiratory exam: Present normal lung sounds bilaterally; Absent respiratory distress, wheezes, stridor or accessory muscle use Cardiovascular Cardiovascular exam: Present regular rate and normal rhythm Abdominal Exam Abdominal exam: Present soft; Absent distention, tenderness or guarding Extremities Exam Extremities exam: Present normal inspection, full ROM and normal capillary refill; Absent tenderness or edema Back Exam Back exam: Present normal inspection and full ROM; Absent tenderness Neurological Exam Neurological exam: Present alert, oriented X3, CN II-XII intact and normal gait; Absent motor sensory deficit Psychiatric Psychiatric exam: Present normal affect and normal mood Skin Skin exam: Present warm and dry HEART Score HEART Score HEART Score assessment performed?: Yes History (anamnesis): Slightly suspicious ECG: Normal Age: <45 years Risk factors: 1-2 risk factors Troponin: </= normal limit HEART Score: 1 Critical Care Critical Care Time Critical Care Time: No Medical Decision Making Ananth Inquiry Pt receiving controlled substance: No Vital Signs Vital Signs: 09/01/24 11:51 09/01/24 12:01 09/01/24 12:31 Temperature 98.0 F Temperature Source Oral Pulse Rate 85 86 Pulse Rate [Apical] 88 Respiratory Rate 18 20 Blood Pressure 97/56 L 106/81 L Blood Pressure [Right Arm] 132/50 L Blood Pressure Mean 70 89 Blood Pressure Mean [Right Arm] 77 Blood Pressure Source Blood Pressure Source [Right Arm] Automatic Cuff Blood Pressure Position Blood Pressure Position [Right Arm] Sitting 02 Sat by Pulse Oximetry 99 98 98 Oxygen Delivery Method Room Air Room Air 09/01/24 13:01 09/01/24 13:42 Temperature 98.0 F Temperature Source Oral Pulse Rate 84 86 Pulse Rate [Apical] Respiratory Rate 17 18 Blood Pressure 94/52 L 97/52 L Blood Pressure [Right Arm] Blood Pressure Mean 66 Blood Pressure Mean [Right Arm] Blood Pressure Source Automatic Cuff Blood Pressure Source [Right Arm] Blood Pressure Position Sitting Blood Pressure Position [Right Arm] 02 Sat by Pulse Oximetry 96 Oxygen Delivery Method Room Air Room Air Lab Data Labs: Lab Results 09/01/24 12:00: WBC 10.5, RBC 4.94, Hgb 13.4, Hct 40.9, MCV 82.7, MCH 27.2, MCHC 32.9, RDW 14.2, Plt Count 294, MPV 7.6, Neut % (Auto) 70.3, Lymph % (Auto) 20.1, [place] % (Auto) 5.5, Eos % (Auto) 2.8, Baso % (Auto) 1.3, Neut # (Auto) 7.4, Lymph # (Auto) 2.1, [place] # (Auto) 0.6, Eos # (Auto) 0.3, Baso # (Auto) 0.1, D-Dimer 0.38, Sodium 139, Potassium 3.8, Chloride 105, Carbon Dioxide 27, Anion Gap 10.8, BUN 19 H, Creatinine 0.80, Estimated Creat Clear 84, Estimated GFR 87, Est GFR ( Amer) 105, Glucose 90, Calcium 8.7, Total Bilirubin 0.6, AST 27, ALT 27, Alkaline Phosphatase 51, Troponin I < 0.01, Total Protein 6.4, Albumin 3.9, Globulin 2.5, Albumin/Globulin Ratio 1.6, Serum HCG, Qual Negative 09/01/24 12:00 09/01/24 12:00 Response Orders (Tests/Meds): ED MEDICATIONS Discontinued Medications Generic Name Dose Route Start Last Admin Trade Name Freq PRN Reason Stop Dose Admin Belladonna Alkaloids 60 ml 09/01/24 12:18 09/01/24 12:26 Belladonna Alkaloids 60 Ml Ml PO 09/01/24 12:19 60 ml ONCE ONE Administration Ketorolac Tromethamine 15 mg 09/01/24 12:18 09/01/24 12:26 Ketorolac 30mg/Ml Vial IV 09/01/24 12:19 15 mg ONCE ONE Administration ORDERS Category Date Time Status XR chest 2V Stat Exams 09/01/24 12:11 Completed Complete Blood Count Auto Diff Stat Lab 09/01/24 12:00 Completed Comprehensive Metabolic Panel Stat Lab 09/01/24 12:00 Completed D-Dimer Stat Lab 09/01/24 12:00 Completed Serum [HCG Qualitative, Serum] Stat Lab 09/01/24 12:00 Completed Troponin I Stat Lab 09/01/24 12:00 Completed ECG Data Tracing #1: Attestation: I reviewed this ECG and interpreted as documented below: ECG Narrative: Normal sinus rhythm with a ventricular rate of [address] changes concerning for ischemia. Normal axis and intervals. ECG initial impression date: 09/01/24 ECG initial impression time: 11:55 MDM Narrative Medical Decision Narrative: In summary, this patient is a 24-year-old female presenting to the Emergency Department for evaluation of chest pain. Differential diagnoses considered include but are not limited to ACS, dysrhythmia, costochondritis, GERD, pleurisy, PE. Ruling out the most morbid conditions drove assessment. It should be noted patient's history includes tachycardia which is reportedly at goal therapy. This complicates all aspects of care by increasing patient's risk for morbidity. I reviewed patient's past medical records and noted previous evaluations by primary care and recent diagnoses of otitis media. Also noted evaluation by myself back in January for chest pain. On exam, the patient is lying in bed in no acute distress. Vitals are normal on cardiac telemetry. Cardiopulmonary exam is reassuring. workup included CBC, CMP, troponin, D-dimer, chest x-ray, EKG. EKG obtained is reassuring. Patient is given GI cocktail as well as IV Toradol for symptomatic improvement. I independently interpreted x-ray prior to the radiologist read and noted no acute focal consolidation, pneumothorax, or pulmonary edema. Please see their read for final interpretation. Labs were obtained that demonstrated negative D-dimer, negative troponin, CBC this reassuring. Chemistry within normal limits.. On reassessment, patient had some improvement after administration of interventions above. She is resting comfortably in bed in no acute distress with normal vital signs on cardiac telemetry. I do feel that we have excluded acute life-threatening pathology as a cause of her symptoms. After shared decision making, patient does not want to stay to obtain second troponin, as the symptoms started last night and troponin is unlikely to significant change. Ultimately, she feels comfortable discharge home with close follow-up with primary care as well as with cardiology. She was given strict return precautions and was discharged after all questions were answered.
[2024-09-01 13:42] VITALS: BP 97/52; PULSE 86; RESP 18; TEMP 36.7; O2SAT 97
== END 2024-09-01 13:43 | disposition home or self-care (01) ==
PROVIDERS: Emergency Provider Emergency Medicine; PCP Student in an Organized Health Care Education/Training Program
DX: R07.9 Chest pain, unspecified (principal)
CPT/HCPCS: 71046; 80053; 84484; 84703; 85025; 85378; 96374; 99285; J1885

== ENCOUNTER 2024-09-03 13:58 | Outpatient (CLI) | payer BC, SELFPAY ==
[2024-09-03 15:27] LABS: Alanine Aminotransferase 24 U/L (12-78); Albumin Level 3.9 g/dl (3.5-5.0); Alkaline Phosphatase 67 U/L (38-126); Anion Gap 13.3 mEq/L (5-15); Aspartate Amino Transferase 22 U/L (14-36); Bilirubin,Direct 0.3 mg/dl (0.0-0.4); Bilirubin,Indirect 0.2 mg/dL (0.0-0.9); Bilirubin,Total 0.5 mg/dl (0.2-1.3); Bilirubin,Unconjugated 0.2 mg/dL (0.0-1.1); Blood Urea Nitrogen 14 mg/dl (7-17); Carbon Dioxide 25 mmol/L (22.0-30.0); Chloride 105 mmol/L (98-107); Estimated Glomerular Filt Rate 87 ml/min (>60); GFR (African American) 105 ML/MIN (>60); Glucose 81 mg/dl (74-100); Potassium 4.3 mmoL/L (3.5-5.1); Sodium 139 mmol/L (136-145); Total Protein,Serum 6.2 g/dl (6.3-8.2)
[2024-09-03 15:42] LABS: Free T4 (Free Thyroxine) 0.88 ng/dl (0.78-2.19)
[2024-09-03 15:56] LABS: Thyroid Stimulating Hormone 2.88 uIU/mL (0.465-4.68)
== END 2024-09-03 23:59 | disposition home or self-care (01) ==
PROVIDERS: PCP Student in an Organized Health Care Education/Training Program; Visit Provider Nurse Practitioner
DX: R00.2 Palpitations (principal); R00.0 Tachycardia, unspecified; R06.02 Shortness of breath; R07.9 Chest pain, unspecified
CPT/HCPCS: 36415; 80048; 80076; 84439; 84443; 93270

== ENCOUNTER 2024-09-17 07:46 | Outpatient (CLI) | payer BC, SELFPAY ==
--- NOTE | 2024-09-17 | CA_ITS ---
APPROVED REPORT Exam: Exercise Treadmill Technologist: Randi Cox Ht: 5 ft 3 in Wt: 305 lbs BSA: 2.31 m2 HR: 90 bpm BP: 127/61 mmHg Stress Test Details Test: Exercise stress testing was performed using a Amandeep protocol. HR Resting HR: 90 bpm Max Heart Rate (APMHR): 194 bpm Max HR Achieved: 175 bpm Target HR (85% APMHR): 165 bpm % of APMHR: 90 Recovery HR: 105 bpm BP Resting BP: 127.0/61.0 mmHg Max BP: 160.0/90.0 mmHg Recovery BP: 139.0/74.0 mmHg ECG Resting ECG: Normal sinus rhythm Stress ECG Conclusion Symptoms: Dyspnea, chest pressure Arrhythmias/Ectopy: - ST-T Changes: Less than [address] depression. Conclusion: Normal EKG response to exercise. Electronically signed by : Sweta Hernández MD 09/19/2024 01:42:34
--- NOTE | 2024-09-17 08:04 | CA_ITS ---
APPROVED REPORT EXAM: Comprehensive 2D, Doppler, and color-flow Echocardiogram Concession Cashier: Promise Mendez RVT Ht: 5 ft 3 in Wt: 305lbs BSA: 2.31 BP: 143/98 mmHg Indications: CP,TACHYCARDIA,PALPS,SOA 2D Dimensions LA Volume 29.40 mL LA Volume Index 12.67 mL/m2 (M/F) 16-34 M-Mode Dimensions RVDd 3.19 cm (0.9-2.6) LA Diam 4.14 cm (1.9-4.0) LVDd 4.80 cm (3.5-5.7) LVDs 3.02 cm (3.5-5.7) IVSd 0.93 cm (0.6-1.1) PWd 0.72 cm (0.6-1.1) EF (Teich) 66.90% FS 37.10% EDV (Teich) 107.50 mL TAPSE 2.26 (<1.7) ESV (Teich) 35.60 mL LV Diastology E Decel Time 130 (160-240 msec) E/A Ratio 1.5 Aortic Valve AO Peak GR. 4.20 mmHg Mitral Valve MV E Max Agus. 78.0 (40-130 cm/s) MV A Velocity 53.0 (40-130 cm/s) E/A Ratio 1.46 MV PHT 38.0 ms Pulmonary Valve PV Peak Velocity 109.0 (50-150 cm/s) Tricuspid Valve TR P. Velocity 169.00 cm/s RAP Estimate 10.00 mmHg RVSP 21.40 mmHg Left Ventricle The left ventricle is normal size. The left ventricular systolic function is normal. The left ventricular ejection fraction is within the normal range. There is normal left ventricular wall thickness. There is normal LV segmental wall motion. The left ventricular diastolic function is normal. LVEF is 55%. Right Ventricle The right ventricle is normal size. The right ventricular systolic function is normal. Atria The left atrium size is normal. The right atrium size is normal. There is no Doppler evidence of interatrial shunt. Aortic Valve The aortic valve opens well. There is no aortic valvular stenosis. No aortic regurgitation is present. Mitral Valve The mitral valve is normal in structure. No evidence of mitral valve stenosis. There is no mitral valve regurgitation noted. Tricuspid Valve The tricuspid valve leaflets are thin and pliable. Trace tricuspid regurgitation. There is insufficient TR jet to estimate RVSP. Pulmonic Valve The pulmonary valve is normal in structure. Trace pulmonic regurgitation. Great Vessels The aortic root is normal in size. The ascending aorta is normal in size. IVC is normal in size and collapses >50% with inspiration. Pericardium Trivial, posterior pericardial effusion is present. No echo indications of tamponade. Other Information Study Quality: Adequate Conclusion Normal biventricular systolic function. No significant valvular stenosis or regurgitation. Trivial, posterior pericardial effusion is present. No echo indications of tamponade. Electronically signed by : Sweta Hernández MD 09/28/2024 23:39:14
== END 2024-09-17 23:59 | disposition home or self-care (01) ==
LOC: RT 07:46
PROVIDERS: PCP Student in an Organized Health Care Education/Training Program; Visit Provider Nurse Practitioner
DX: R00.2 Palpitations (principal); R06.02 Shortness of breath; R07.9 Chest pain, unspecified; R00.0 Tachycardia, unspecified
CPT/HCPCS: 93017; 93018; 93306

== ENCOUNTER 2024-10-31 12:53 | Emergency (ER) | payer BC, SELFPAY ==
[2024-10-31 13:06] VITALS: BP 113/53; PULSE 79; RESP 18; TEMP 36.6; O2SAT 99; BMI 55.2
--- NOTE | 2024-10-31 13:09 | ED_ITS ---
Discharge Plan Disposition Patient Disposition: Home, Self-Care Condition: Good Prescriptions Prescriptions: No Action fluticasone propionate 50 mcg/actuation spray,suspension 1 spray intranasal DAILY Qty: 16 2RF Rx Instructions: administer into each nostril bupropion HCl 150 mg tablet extended release 24 hr 150 mg PO DAILY promethazine 25 mg tablet 25 mg PO DIRECTED diltiazem HCl 120 mg capsule,extended release 24hr 120 mg PO DAILY Referrals Follow up/Referrals: Stephanie Allen PA [Primary Care Provider] - See instructions Activity Restrictions/Add. Instructions Additional Instructions/Restrictions: Drink plenty of fluids. Take tylenol for pain or fever. Follow up with your regular doctor. Follow up with your bradder physician tomorrow as scheduled. GO TO THE ER FOR ANY WORSENING SYMPTOMS Clinical Impressions Clinical Impression: Gastroenteritis Instructions Patient Instructions: Viral Gastroenteritis, DI for Viral Gastroenteritis -- Adult Print Language Print Language: [place] Discharge ED Provider: Abelino Edwards [facility] General Stated complaint: vomiting Mode of Arrival: Ambulatory Source of Information: Patient Time Seen by Provider: 10/31/24 13:08 Description of Symptoms (Recalled from Triage Doc. by RN): 9 weeks and having constant vomiting HEENT Symptoms (Recalled from RN notes): No Resp Symptoms (Recalled from RN notes): No Skin Symptoms (Recalled from RN notes): No MS Symptoms (Recalled from RN notes): No Functional Status (Recalled from RN notes): WNL History of Present Illness Provider Complaint: She states that for the past 1 day she had n/v/d. She is 9 weeks . She denies any low back pain, abdominal pain and any other complaints. Related Data Home Medications ?Medication ?Instructions ?Recorded ?Confirmed bupropion HCl 150 mg 24 hr tablet, 150 mg PO DAILY 10/11/23 10/31/24 extended release diltiazem HCl 120 mg 120 mg PO DAILY 08/23/24 10/31/24 capsule,extended release 24 hr promethazine 25 mg tablet 25 mg PO DIRECTED 10/31/24 10/31/24 Previous Rx's ?Medication ?Instructions ?Recorded fluticasone propionate 50 1 spray intranasal DAILY #16 grams 08/29/24 mcg/actuation nasal spray,suspension Allergies Allergy/AdvReac Type Severity Reaction Status Date / Time propranolol Allergy Unknown Rash Verified 10/03/24 12:55 Worker's Comp Is this a Worker's Comp case?: No [facility] Disclaimer: The information contained in this section may have been updated after the patient was seen, as this information can be updated by other users. 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 Anemia Depression Anxiety Surgical History History of tonsillectomy Social History Smoking Status: Former smoker alcohol intake: never current occupational status: employed Travel in the last 8 weeks: None Have you lived/traveled outside [place] in past 30 days?: No Contact w/someone who lives/traveled outside [place] past 30 days?: No Exposure to someone with infectious disease in past 14 days?: No Do you have a fever (greater than 100.4 F or 38 C)?: No Have you tested positive for COVID-19: No Exposed to someone with COVID-19 in past 14 days?: No Do you have a sore throat?: No Do you have a cough?: No Do you have any weakness?: No Do you have any diarrhea?: No Are you experiencing any unusual bleeding?: No Do you have any muscle aches/pain?: No Do you have any abdominal pain?: No Are you experiencing loss of taste or smell?: No ROS Obtained: Yes All systems reviewed & no additional complaints except as documented Constitutional Constitutional: Denies chills, Denies fever(s) and Reports poor appetite ENT Ears, Nose, Mouth, and Throat: Denies dizziness and Denies sore throat Cardiovascular Cardiovascular: Denies dyspnea Respiratory Respiratory: Denies chest congestion, Denies cough and Denies dyspnea Gastrointestinal Gastrointestingal: Reports as per HPI Genitourinary Female Genitourinary: Denies difficulty voiding, Denies dysuria, Denies hematuria, Denies urinary frequency, Denies urinary incontinence, Denies urinary hesitancy and Denies urinary urgency Musculoskeletal Musculoskeletal: Denies arthralgias Integumentary/Breasts Skin/Breast: Denies rash Neurologic Neurologic: Denies dizziness Physical Exam General General appearance: alert and in no apparent distress Head Head exam: atraumatic and normocephalic Eye Eye exam: Present normal appearance, PERRL and EOMI ENT ENT exam: Present normal exam, normal oropharynx, mucous membranes moist, TM's normal bilaterally and normal external ear exam Neck Neck exam: Present normal inspection, full ROM and trachea midline; Absent tenderness, meningismus or lymphadenopathy Chest Chest inspection: Present normal inspection and symmetric chest wall rise; Absent tenderness, rash or abscess Respiratory Respiratory exam: Present normal lung sounds bilaterally; Absent respiratory distress, wheezes or stridor Cardiovascular Cardiovascular exam: Present regular rate and normal rhythm; Absent irregular rhythm, systolic murmur, diastolic murmur or JVD Abdominal Exam Abdominal exam: Present soft and normal bowel sounds; Absent distention, tenderness, guarding, rebound, rigidity, psoas sign, obturator sign, heel tap sign, Culp's sign, Rovsing's sign or tenderness at McBurney's Point Extremities Exam Extremities exam: Present normal inspection and full ROM; Absent tenderness Back Exam Back exam: Present normal inspection and full ROM; Absent tenderness, CVA tender ness (R) or CVA tenderness (L) Neurological Exam Neurological exam: Present alert, oriented X3 and CN II-XII intact Psychiatric Psychiatric exam: Present normal affect and normal mood Skin Skin exam: Present warm, dry, intact and normal color Lymphatic Lymphatic Findings: no adenopathy Medical Decision Making Medical Records Medical records reviewed: No I reviewed the patient's medical records. Screening: Per USPSTF and CDC recommendations, given the prevalence of disease in our region, it is our hospital?s policy to screen for HIV and viral Hepatitis for all patients aged 18 and over and those with ongoing risk factors. Ananth Inquiry Pt receiving controlled substance: No Vital Signs: 10/31/24 13:06 Temperature 97.9 F Temperature Source Oral Pulse Rate [Left Brachial] 79 Respiratory Rate 18 Blood Pressure [Left Arm] 113/53 L Blood Pressure Mean [Left Arm] 73 02 Sat by Pulse Oximetry 99 Lab Data Lab results reviewed: Yes I reviewed the patient's lab results.
[2024-10-31] MEDS: 0.9 % SODIUM CHLORIDE 1000ML 500 ML 999 ML IV (13:56)
[2024-10-31 15:06] VITALS: BP 113/53; PULSE 79; RESP 18; TEMP 36.6
[2024-10-31 15:11] LABS: Coronavirus 19, PCR Not Detected (NotDetected); Influenza A, PCR Not Detected (NotDetected); Influenza B, PCR Not Detected (NotDetected)
== END 2024-10-31 15:07 | disposition home or self-care (01) ==
PROVIDERS: Emergency Provider Nurse Practitioner Family; PCP Student in an Organized Health Care Education/Training Program
DX: A08.4 Viral intestinal infection, unspecified (principal)
CPT/HCPCS: 87636; 99213; G0381; J7030

== ENCOUNTER 2024-11-02 11:43 | Outpatient (CLI) | payer BC, SELFPAY ==
--- OUTSIDE RECORDS SUMMARY | 2025-06-20 05:45 | XMS_ITS ---
[facility] Address [address] [facility] [address] [place] [id number] Care Team Providers Care Bailer Operators Supervisor Name Role Phone Bayron Hayes Primary Care Provider [phone] Allergies Allergen (clinical drug ingredient) Drug/Non Drug [...] Interpretation:Normal Performing Lab: Notes/Report: Test performed by [facility] [address] [place], [place] [address] [address] , [address], [place] [address] Ludin Smith MD, Machine Icer CLIA: [id number] Amylase 27 28-100 U/L P-Comprehensive Metabolic Pa tara (CMP) Reviewed date:06/24/2025 01:27:33 PM Interpretation:Normal Performing Lab: Notes/Report: Test performed by [facility] [address] [place], [place] [address] [address] , [address], [place] [address] Ludin Smith MD, Machine Icer CLIA: [id number] Sodium 141 135-145 mmol/L Potassium 4.4 3.5-5.3 [...] Interpretation:Normal Performing Lab: Notes/Report: Test performed by [facility] [address] [place] [address] , [address], [place] [address] Ludin Smith MD, Machine Icer CLIA: [id number] Lipase 22.7 13.0-60.0 U/L Ultrasound : Abdomen [...] 06/20/2025 Encounters Encounter Location Date Provider Diagnosis [facility] [address] [facility] [address] [place] [id number] 06/20/2025 Bayron Edwardsberry RUQ abdominal pain R10.11 Assessments Encounter Date Diagnosis (ICD Code) Assessment Notes Treatment Notes Treatment Clinical Notes Section Notes 06/20/2025 RUQ abdominal pain (ICD-10 - R10.11) Plan Of Treatment Next Appt Details Follow Up: via phone to repo rt test results, Reason: Progress Notes * Leticia HORTONDOB: 8 (25 yo F)Acc No.[id number]:06/20/2025 Progress Notes Patient: Leticia URENA Provider: Riki Hayes M.D. :2000 A ge:24 Y S ex:Female Date:06/20/2025 Address:[address] [facility] [address], [place], [id number] Subjective: * Chief Complaints: * 1 . [...] urine. * 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: D epression. 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 * Procedure Codes: 38847 CBC WITH AUTO DIFF. * Electronic signature of Randa Hayes MD on 11/03/2025 at 11:46 AM EST Sign off status: Pending * Provider: Riki Hayes M.D. Date: 0 06/20/2025 Generated for Shweta knight/Ashley/Monicaransmitting on: 0 11/03/2025 11:46 AM EST History and Physical Notes * [...]
--- OUTSIDE RECORDS SUMMARY | 2025-09-22 06:45 | XMS_ITS ---
Author Organization [facility] Address [facility] [facility] [address] [place] [id number] Care Team Providers Care Cyber Systems Administrator Name Role Phone Bayron Hayes Primary Care Provider [phone] Allergies Allergen (clinical drug ingredient) Drug/Non Drug Allergy documented on EMR Reaction Allergy Type Onset Date Status propranolol Propranolol Unknown Drug Allergy Act mahamed Results Component Value Reference Range Notes CBC Fingerstick (in house) Reviewed date:09/22/2025 01:13:09 PM Interpretation: Performing Lab: Notes/Report: wbc 7.9 3.5 - 10 lym 24.4% 15 - 50 mid 6.8% 2 - 15 gran 68.8% 35 - 80 rbc 4.63 3.5 - 5.5 hgb 11.9 11.5 - 16.5 hct 36.8 35 - 55 mcv 79.6 75 - 100 mch 25.9 25 - 35 mchc 32.5 31 - 38 plat 230 100 - 400 REASON FOR VISIT passes out Medications Medication SIG (Take, Route, Frequency, Duration) Notes Start Date End Date Status Zithromax Z-Kaleb 250 MG as directed Orall y daily; Duration: 5 days 09/22/2025 Active dilTIAZem HCl 120 MG as directed Orally Active buPROPion HCl ER (SR) 150 MG 1 tablet in the morning Orally Once a day Active Vitamin Act mahamed Vital Signs Blood pressure systolic 130 mm Hg 09/22/20 25 Blood pressure diastolic 82 mm Hg 025 Heart Rate 105 /min 09/22/2025 Height 62 in 09/22/2025 Weight 305.6 lbs 09/22/2025 BMI 55.89 kg/m2 09/22/2025 Encounters Encounter Location Date Provider Diagnosis [facility] [address] [place] [phone] 09/22/2025 Bayron Hayes Acute URI J06.9 and Recurrent syncope R55 Assessments Encounter Date Diagnosis (ICD Code) Assessment Notes Treatment Notes Treatment Clinical Notes Section Notes 09/22/2025 Acute URI (ICD-10 - J06.9) 09/22/2025 Recurrent syncope (ICD-10 - R55) Patient to follow with [facility] cardiology to complete evaluation for POTS. Plan Of Treatment Medication Medication Name Sig Start Date Stop Date Notes Zithromax Z-Kaleb 250 MG as directed Orall y daily; Duration: 5 days 09/22/2025 Treatment Notes Assessment Notes Recurrent syncope Patient to follow wi th [facility] cardiology to complete evaluation for POTS. Next Appt Details Follow Up: prn, Reason: Progress Notes * HORTONLeticiaDOB: 8 (25 yo F)Acc No.[id number]:09/22/2025 Progress Notes Patient: Emile HOLLAND Leticia Provider: Riki Hayes M.D. :2000 A ge:25 Y S ex:Female Date:09/22/2025 Address:[address] [place] [address] [address] [id number] Subjective: * Chief Complaints: * 1 . Passes out. * HPI: E NT/respiratory: 25 year old female presents with c/o cough P t complains of dry without any sputum production cough that started last night. Associated with sinus pressure and nasal congestion. N eurology: c/o syncope P t complains of passing out this morning. Pt states she has had this issue for a while and it did get worse when she was . Pt states a tilt table test was mentioned but due to she was unable to have it done. Pt states she was dx with tachycardia and prescribed Diltiazem. Pt states she does has appt with cardiology on Monday.? * 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: D epression. * Surgical History: T onsilectomy 2011. * [...] P ropranolol. Objective: * Vitals: W t: 305.6, Temp: 98.0, BP: 130/82, HR: 105, Nurse: concha, Ht: 62, BMI:55.89. * Examination: E NT/Respiratory: General Appearance: N AD. E yes: P ERRLA, sclera clear. O ral cavity : e rythema without exudate on pharynx. N jimbo : n o cervical lymphadenopathy. H eart : R RR, normal S1 S2. L ungs: c lear to auscultation bilaterally.? Assessment: * Assessment: 1. A cute URI - J06.9 (Primary) 2 . R ecurrent syncope - R55 ? Plan: * Treatment: Value Reference Range w bc 7.9 3.5 - 10 * l ym 24.4% 15 - 50 * m id 6.8% 2 - 15 * g ran 68.8% 35 - 80 * r bc 4.63 3.5 - 5.5 * h gb 11.9 11.5 - 16.5 * h ct 36.8 35 - 55 * m cv 79.6 75 - 100 * m ch 25.9 25 - 35 * m chc 32.5 31 - 38 * p lat 230 100 - 400 * Shauna Gloria 09/22/2025 12:02 :11 PM EST > Provider reviewed results while patient in office. 2.?Recurrent syncope? Notes: Patient to follow with [facility] cardiology to complete evaluation for POTS.?? * Procedure Codes: 3 6416 CAPILLARY BLOOD DRAW, [address] CBC WITH AUTO DIFF * Follow Up: p rn * Images: Billing Information: * Visit Code: 92415 Office Visit, Est Pt., Level 3. * Procedure Codes: 19870 CAPILLARY BLOOD DRAW. [address]30[address] CBC WITH AUTO DIFF. * Electronic signature of Randa Hayes MD on 11/03/2025 at 11:46 AM EST Sign off status: Pending * Provider: Riki Hayes M.D. Date: 11/22/2024 Generated for Shweta knight/Ashley/Dora on: 0 11/03/2025 11:46 AM EST History and Physical Notes * HPI (History of Present Illness) Category Sub-Category Detail Notes Category Not es ENT/respiratory cough Pt complains of dry without any sputum production cough that started last night. Associated with sinus pressure and nasal congestion Neurology syncope Pt complains of passing out this morning. Pt states she has had this issue for a while and it did get worse when she was . Pt states a tilt table test was mentioned but due to she was unable to have it done. Pt states she was dx with tachycardia and prescribed Diltiazem. Pt states she does has appt with cardiology on Monday Examination Category Sub-Category Detail Notes Category Not es ENT/Respiratory Oral cavity : erythema without exudate on pharynx Neck : no cervical lymphade nopathy Heart : RRR, normal S1 S2 Lungs: clear to auscultatio n bilaterally General Appearance: NAD Eyes: PERRLA, sclera clear
--- OUTSIDE RECORDS SUMMARY | 2025-11-03 11:46 | XMS_ITS | Referral Summary ---
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
--- OUTSIDE RECORDS SUMMARY | 2025-11-03 11:46 | XMS_ITS | Encounter Summary ---
Author Organization Healthcare Address [address] [place] [address] Care Team Providers Care Bulk Delivery Driver Name Role Phone Stephanie Allen Primary Care Provider [phone] Encounter Details Date Type Department Care Team (Late st Contact Info) Description 10/12/2022 Outside Procedure External Location [address] [place] [address] James Cowart MD [facility] [place] [address] Social History Tobacco Use Types [...] AM EST Narrative 10/12/2022 8:21 [place] [address] Name: LETICIA PENNINGTON Exam Date: 10/12/2022 : 2000 Age 22 Gender: F Physician: JAMES COWART Facility: [facility] Facility HSV: Outpatient Exam: HYSTEROSALPINGOGRAM [...] Thank you for referring LETICIA PENNINGTON to [facility]. Legally authenticated by POPE ANA Baptiste 2022-10-12 08:09:41 Procedure Note Provider, [facility] - 10/12/2022 [place] [address] Name: LETICIA PENNINGTON Exam Date: 10/12/2022 : 2000 Age 22 Gender: F Physician: JAMES COWART Facility: [facility] Facility HSV: Outpatient Exam: HYSTEROSALPINGOGRAM [...] Thank you for referring LETICIA PENNINGTON to [facility]. Legally authenticated by POPE ANA Baptiste 2022-10-12 08:09:41 us James Cowart MD IMG FLUOROSCOPY PROCEDURES Gayle l Result documented in this encounter Visit Diagnoses Not on filedocumented in this encounter Care Teams Bulk Delivery Driver Relationship Specialty Start Date End Date Stephanie Allen PA [address] [place] [address] PCP - General 08/30/24 documented as of this encounter
--- OUTSIDE RECORDS SUMMARY | 2025-11-03 11:46 | XMS_ITS | Clinical Summary ---
Author Organization [employer] ([place], [place], [place], [place], [place]) Address [address] [place] [address] Care Team Providers Care Yarn Dyer Name Role Phone Stephanie Allen PA-C Primary Care Provider [phone] Allergies Active Allergy Reactions Criticality Noted Date [...] rded Speak language other than [place] at home Not on file 09/01/2024 Want help with school or training Not on file 09/01/2024 Substance Use Answer Date Recorded Used prescription meds for non-medical reasons N ot on file 09/01/2024 Used illegal drugs past 12 months Not on file 09/01/2024 Comments No Sex and Gender Information Value Date Recorded Sex Assigned at Not on file 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 [place] [address] [id number] BLUE CROSS/BLUE SHIELD Care Teams Yarn Dyer Relationship Specialty Start Date End Date Stephanie Allen PA-C [address] [place] [address] PCP - General 09/01/24
--- OUTSIDE RECORDS SUMMARY | 2025-11-03 11:47 | XMS_ITS | Clinical Summary ---
Author Organization [facility] Address [address] [place] [address] Care Team Providers Care Switchboard Inspector Name Role Phone NancyStacy barker Primary Care Provider [phone] Allergies Active Allergy Reactions Criticality Noted Date [...] age to complete this topic Insurance [facility] PPO Care Teams Switchboard Inspector Relationship Specialty Start Date End Date Stacy Cruz DO [address] [place] [address] PCP - General Family Medicine 09/14/23
--- OUTSIDE RECORDS SUMMARY | 2025-11-03 11:47 | XMS_ITS | Patient Health Record ---
Author Organization [facility] Address [address] [facility] [address] [place] [phone] Care Team Providers Care Sports Medicine Trainer Name Role Phone Bayron Hayes Primary Care [...] Interpretation:Normal Performing Lab: Notes/Report: Test performed by [facility] [address] [place], [place] [address] , [address], [place] [address] Ludin Smith MD, Dental Instrument Maker CLIA: [id number] Amylase 27 28-100 U/L P-Comprehensive Metabolic Pa tara (CMP) Reviewed date:06/24/2025 01:27:33 PM Interpretation:Normal Performing Lab: Notes/Report: Test performed by [facility] [address] [place], [place] [address] [place] , [address], [place] [address] Ludin Smith MD, Dental Instrument Maker CLIA: [id number] Sodium 141 135-145 mmol/L Potassium 4.4 3.5-5.3 [...] Interpretation:Normal Performing Lab: Notes/Report: Test performed by [facility] [employer], [address] , [address], [place] [address] Ludin Smith MD, Dental Instrument Maker CLIA: [id number] Lipase 22.7 13.0-60.0 U/L Ultrasound : Abdomen [...] 09/22/2025 Encounters Encounter Location Date Provider Diagnosis [facility] [facility] [address] [place] [id number] 06/20/2025 Bayron [place] RUQ abdominal pain R10.11 [facility] [facility] [address] [place] [id number] 09/22/2025 Bayron [place] Acute URI J06.9 and Recurrent syncope R55 [facility] [facility] [address] [place] [id number] 06/26/2025 Bayron [place] 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 Plan Of Treatment No Information Insurance Providers Payer Name Payer Address Payer Phone Subscriber Number Group Number Insured Name Patient Relationship to Insured Coverage Start Date Coverage End Date [employer] [address] [place] [address] [id number] Leticia Moulton Self - patient is the insured Medical (General) History 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 History ICD Code Depression Surgical History Surgery Date(Month/Year) Tonsilectomy 2011
--- OUTSIDE RECORDS SUMMARY | 2025-11-03 11:47 | XMS_ITS | Clinical Summary ---
Author Organization [facility] Address [address] [place] [address] Care Team Providers Care Senior Radiation Therapist Name Role Phone Stephanie Allen Primary Care Provider [phone] Allergies Active Allergy Reactions Criticality Noted Date [...] Heart disease Mother Debi Vo Obesity Mother Debigwen Vo Aneurysm Paternal Grandmother Heart disease Paternal [...] 19+ 3-dose series) 2017 [facility]-Pap Smear 2019 [id number] Vaccine (1 - 2024- season) 2025 [facility]-Influenza [...] Reactive Non Reactive 11/01/2024 1:54 PM EST [facility] Comment:Screening for HIV 1 & 2 antibodies, and P24 antigen is NONREACTIVE. No confirmatory testing is required. Blood Venous blood specimen / Unknown Venipuncture / Unknown 11/01/2024 10:24 AM EST 11/01/2024 12:52 PM EST Result Santino Cowart MD LAB BLOOD ORDERABLES Final Resu lt Performing Organization Address City/[facility]/ZIP Co de Phone Number [facility] [address] [place] [address] * Hepatitis C Antibody w/Reflex to HCV Quant PCR (11/01/2024 10:24 AM EST) Hepatitis C Antibody Negative Negative 11/01/2024 1:31 PM EST [facility] Blood Venous blood specimen / Unknown Venipuncture / Unknown 11/01/2024 10:24 AM EST 11/01/2024 12:52 PM EST Result Santino Cowart MD LAB BLOOD ORDERABLES Final Resu lt Performing Organization Address City/[facility] Co de Phone Number [facility] [address] [place] [address] from Last 3 Months or Most Recently Relevant to Health Maintenance Additional Health Concerns Active Problems Noted Date Diagnosed Date CPM S24 PP LABOR (OBSTETRICS) 11/19/2024 Insurance ANTH Care Teams Senior Radiation Therapist Relationship Specialty Start Date End Date Stephanie Allen PA [address] [place] [address] PCP - General 08/30/24
== END 2024-11-02 23:59 | disposition home or self-care (01) ==
LOC: LAB.DROPOF 11-03 11:40
PROVIDERS: PCP Family Medicine; Visit Provider Nurse Practitioner
DX: J06.9 Acute upper respiratory infection, unspecified (principal)
CPT/HCPCS: 87631

== ENCOUNTER 2024-11-23 16:04 | Emergency (ER) | payer BC, SELFPAY ==
[2024-11-23 16:05] VITALS: BP 148/66; PULSE 88; RESP 18; TEMP 36.9; O2SAT 100; BMI 54.6
[2024-11-23 16:13] VITALS: BP 148/66; O2SAT 100
--- NOTE | 2024-11-23 16:24 | PC.NURSE ---
Called [facility] for OB records.
[2024-11-23] MEDS: 0.9 % SODIUM CHLORIDE 1000ML 1,000 ML 500 ML IV (16:37)
[2024-11-23] MEDS: ONDANSETRON 4MG/2ML VIAL 4 MG IV (16:37)
[2024-11-23 16:45] VITALS: BP 97/49
--- NOTE | 2024-11-23 16:46 | HMH.EDGENADL ---
Discharge Plan Disposition Patient Disposition: Home, Self-Care Condition: Good Prescriptions Prescriptions: New doxylamine succinate 25 mg tablet 25 mg PO Q6H PRN (Reason: nausea) Qty: 20 0RF pyridoxine (vitamin B6) 10 mg tablet 10 mg PO Q6 Qty: 30 0RF No Action fluticasone propionate 50 mcg/actuation spray,suspension 1 spray intranasal DAILY Qty: 16 2RF Rx Instructions: administer into each nostril bupropion HCl 150 mg tablet extended release 24 hr 150 mg PO DAILY promethazine 25 mg tablet 25 mg PO DIRECTED diltiazem HCl 120 mg capsule,extended release 24hr 120 mg PO DAILY Referrals Follow up/Referrals: Stephanie Allen PA [Primary Care Provider] - See instructions Activity Restrictions/Add. Instructions Additional Instructions/Restrictions: At this time it was felt you are safe to be discharged home. If new or worsening symptoms please do not hesitate to return the emergency department. Clinical Impressions Clinical Impression: Hyperemesis gravidarum Print Language Print Language: Swedish Discharge ED Provider: Reza David General Adult HPI <Deborah Camacho (ED), [employer] - Last Filed: 11/23/24 20:41> General Chief complaint: Nausea/Vomiting/Diarrhea Stated complaint: low blood pressure Time Seen by Provider: 11/23/24 16:07 Mode of Arrival: Wheelchair Source of Information: Patient Limitations: No Limitations Description of Symptoms (Recalled from ER Triage Doc. by RN): pt feels weak, has been vomiting for 2 days. has HG History of Present Illness HPI narrative: This is a 24-year-old female who presents to the ED today for complaint of dizziness over the last 24 hours and low blood pressure at home. She says her reading has been systolic 80s to 90s and diastolic 40s to 50s. States she is 12 weeks and has hyperemesis gravidarum. She is supposed to be getting IV fluids 3 times a week and only went 1 time this past week. She says that she works and lives in [place] and has a hard time getting to [place] 3 times a week. Her OB is Dr. Cowart. She did go to the ER on for some bleeding vaginally. She had an ultrasound and pelvic exam on Monday at her OBs office. She was told that breathing was normal. She has not been able to keep fluids down and has been weak so she came to the ER for some fluids. She has had no cramps or bleeding since she saw her OB yesterday. Her blood pressure on arrival here was 113/53. Related Data Home Medications ?Medication ?Instructions ?Recorded ?Confirmed bupropion HCl 150 mg 24 hr tablet, 150 mg PO DAILY 10/11/23 10/31/24 extended release diltiazem HCl 120 mg 120 mg PO DAILY 08/23/24 10/31/24 capsule,extended release 24 hr promethazine 25 mg tablet 25 mg PO DIRECTED 10/31/24 10/31/24 Previous Rx's ?Medication ?Instructions ?Recorded fluticasone propionate 50 1 spray intranasal DAILY #16 grams 08/29/24 mcg/actuation nasal spray,suspension doxylamine succinate 25 mg tablet 25 mg PO Q6H PRN nausea #20 tabs 11/23/24 pyridoxine (vitamin B6) 10 mg 10 mg PO Q6 #30 tabs 11/23/24 tablet Allergies Allergy/AdvReac Type Severity Reaction Status Date / Time propranolol Allergy Unknown Rash Verified 10/03/24 12:55 [facility] <Deborah Camacho (ED), [employer] - Last Filed: 11/23/24 20:41> [facility] Disclaimer: The information contained in this section may have been updated after the patient was seen, as this information can be updated by other users. 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 Anemia Depression Anxiety Surgical History History of tonsillectomy Social History Smoking Status: Never smoker alcohol intake: never current occupational status: employed Travel in the last 8 weeks: None Have you lived/traveled outside US in past 30 days?: No Contact w/someone who lives/traveled outside US past 30 days?: No Exposure to someone with infectious disease in past 14 days?: No Do you have a fever (greater than 100.4 F or 38 C)?: No Have you tested positive for COVID-19: No Exposed to someone with COVID-19 in past 14 days?: No Do you have a sore throat?: No Do you have a cough?: Yes Do you have any weakness?: Yes Do you have any diarrhea?: No Are you experiencing any unusual bleeding?: No Do you have any muscle aches/pain?: No Do you have any abdominal pain?: No Are you experiencing loss of taste or smell?: No Other 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 Have you received the Pneumonia Vaccine: No <Deborah Kilkev (ED), [employer] - Last Filed: 11/23/24 20:41> ROS Obtained: Yes Systems reviewed as appropriate & no additional complaints except as documented Constitutional Constitutional: Reports as per HPI Physical Exam <Deborah Kilkev (ED), [employer] - Last Filed: 11/23/24 20:41> General General appearance: alert and in no apparent distress Head Head exam: atraumatic and normocephalic Eye Eye exam: Present PERRL and EOMI ENT ENT exam: Present normal oropharynx and mucous membranes moist Neck Neck exam: Present normal inspection, full ROM and trachea midline Respiratory Respiratory exam: Present normal lung sounds bilaterally Cardiovascular Cardiovascular exam: Present regular rate, normal rhythm, normal heart sounds, +S1 and +S2 Abdominal Exam Abdominal exam: Present soft and normal bowel sounds Extremities Exam Extremities exam: Present normal inspection, full ROM and normal capillary refill Neurological Exam Neurological exam: Present alert, oriented X3 and normal gait Skin Skin exam: Present warm, dry and intact Medical Decision Making <Deborah Kilkev (ED), [employer] - Last Filed: 11/23/24 20:41> Medical Records Screening: Per USPSTF and CDC recommendations, given the prevalence of disease in our region, it is our hospital?s policy to screen for HIV and viral Hepatitis for all patients aged 18 and over and those with ongoing risk factors. Ananth Inquiry Pt receiving controlled substance: No Ananth was queried for this patient: No Vital Signs: 11/23/24 16:05 11/23/24 16:13 11/23/24 16:45 Temperature 98.4 F Temperature Source Oral Pulse Rate Pulse Rate [Right] 88 Respiratory Rate 18 Blood Pressure 148/66 H 97/49 L Blood Pressure [Right Arm] 148/66 H Blood Pressure Mean 81 62 Blood Pressure Mean [Right Arm] 93 02 Sat by Pulse Oximetry 100 100 Oxygen Delivery Method 11/23/24 17:15 11/23/24 17:42 11/23/24 17:46 Temperature 98.0 F Temperature Source Oral Pulse Rate 66 Pulse Rate [Right] Respiratory Rate 17 Blood Pressure 118/64 116/58 L 116/58 L Blood Pressure [Right Arm] Blood Pressure Mean 82 77 Blood Pressure Mean [Right Arm] 02 Sat by Pulse Oximetry Oxygen Delivery Method Room Air Lab Data Lab Results 11/23/24 16:11: Urine Color Yellow, Urine Appearance Clear, Urine pH 6.0, Ur Specific [place] 1.025, Urine Protein Negative, Urine Glucose (UA) Negative, Urine Ketones Negative, Urine Blood Negative, Urine Nitrate Negative, Urine Bilirubin Negative, Urine Urobilinogen 0.2, Ur Leukocyte Esterase Trace, Urine RBC None, Urine WBC 10-20, Ur Squamous Epith Cells 5-10, Urine Bacteria 1+ 11/23/24 16:20: WBC 7.1, RBC 4.40, Hgb 11.8 L, Hct 36.4 L, MCV 82.7, MCH 26.8 L, MCHC 32.4, RDW 13.2, Plt Count 261, MPV 10.9 H, Neut % (Auto) 64.3, Lymph % (Auto) 25.3, [place] % (Auto) 6.9, Eos % (Auto) 2.7, Baso % (Auto) 0.4, Neut # (Auto) 4.6, Lymph # (Auto) 1.8, [place] # (Auto) 0.5, Eos # (Auto) 0.2, Baso # (Auto) 0.0, Sodium 137, Potassium 3.7, Chloride 106, Carbon Dioxide 21 L, Anion Gap 13.7, BUN 13, Creatinine 0.60, Estimated Creat Clear 112, Estimated GFR 121, Est GFR ( Amer) 146, Glucose 103 H, Calcium 9.2, Magnesium 1.6, Total Bilirubin 0.2, AST 33, ALT 24, Alkaline Phosphatase 58, Total Protein 6.8, Albumin 3.9, Globulin 2.9, Albumin/Globulin Ratio 1.3 11/23/24 16:20 11/23/24 16:20 Orders (Tests/Meds): ED MEDICATIONS Discontinued Medications Generic Name Dose Route Start Last Admin Trade Name Freq PRN Reason Stop Dose Admin Sodium Chloride 1,000 mls @ 500 mls/hr 11/23/24 16:30 11/23/24 16:37 Sod Chlor 0.9% 1000ml Bag IV 12/23/24 16:29 500 mls/hr .Q2H NICK Administration Ondansetron HCl 4 mg 11/23/24 16:26 11/23/24 16:37 Ondansetron 4mg/2ml Vial IV 11/23/24 16:27 4 mg ONCE ONE Administration ORDERS Category Date Time Status CBC w/Auto Diff [Complete Blood Count Auto Diff] Stat Lab 11/23/24 16:20 Completed Comprehensive Metabolic Panel Stat Lab 11/23/24 16:20 Completed MG [Magnesium] Stat Lab 11/23/24 16:20 Completed Urinalysis-Acute [Urinalysis and Microscopic] Stat Lab 11/23/24 16:11 Completed Urine Culture Stat Micro 11/23/24 16:11 Received Medical Decision Narrative: Insert review patient is a [age, sex] presenting to the emergency department for evaluation of []. Patient is [hemodynamically stable and nontoxic-appearing upon arrival, afebrile]. Differential diagnosis includes[]. Workup will be conducted with [hematologic labs, specific imaging, provocative tests]. Initial inventions include [crystalloid bolus, analgesics, antibiotics, etc.]. Initial workup reviewed by me [hematologic labs are remarkable for:]. [Imaging informally interpreted by me and remarkable for:] [Formal imaging read remarkable for:] Upon repeat evaluation [patient's pain is improved, appears better perfused, appears the same, appears worse, etc.]. Due to this [additional interventions, patient is appropriate for discharge, patient requires admission, etc.]. [ If patient requires admission or consultation say I had an interactive discussion with X Consideration of test and reason for deferment Putting patient in observation care Social determinants of health making workup or disposition difficult (undomiciled, polysubstance abuse, etc.) Independently reviewing hospital records, previous imaging, you must explicitly state what you are reviewing (example, cardiology consultation note from April 2023) <Reza David MD - Last Filed: 11/23/24 23:51> Vital Signs: 11/23/24 16:05 11/23/24 16:13 11/23/24 16:45 Temperature 98.4 F Temperature Source Oral Pulse Rate Pulse Rate [Right] 88 Respiratory Rate 18 Blood Pressure 148/66 H 97/49 L Blood Pressure [Right Arm] 148/66 H Blood Pressure Mean 81 62 Blood Pressure Mean [Right Arm] 93 02 Sat by Pulse Oximetry 100 100 Oxygen Delivery Method 11/23/24 17:15 11/23/24 17:42 11/23/24 17:46 Temperature 98.0 F Temperature Source Oral Pulse Rate 66 Pulse Rate [Right] Respiratory Rate 17 Blood Pressure 118/64 116/58 L 116/58 L Blood Pressure [Right Arm] Blood Pressure Mean 82 77 Blood Pressure Mean [Right Arm] 02 Sat by Pulse Oximetry Oxygen Delivery Method Room Air Lab Data Lab Results 11/23/24 16:11: Urine Color Yellow, Urine Appearance Clear, Urine pH 6.0, Ur Specific [place] 1.025, Urine Protein Negative, Urine Glucose (UA) Negative, Urine Ketones Negative, Urine Blood Negative, Urine Nitrate Negative, Urine Bilirubin Negative, Urine Urobilinogen 0.2, Ur Leukocyte Esterase Trace, Urine RBC None, Urine WBC 10-20, Ur Squamous Epith Cells 5-10, Urine Bacteria 1+ 11/23/24 16:20: WBC 7.1, RBC 4.40, Hgb 11.8 L, Hct 36.4 L, MCV 82.7, MCH 26.8 L, MCHC 32.4, RDW 13.2, Plt Count 261, MPV 10.9 H, Neut % (Auto) 64.3, Lymph % (Auto) 25.3, [place] % (Auto) 6.9, Eos % (Auto) 2.7, Baso % (Auto) 0.4, Neut # (Auto) 4.6, Lymph # (Auto) 1.8, [place] # (Auto) 0.5, Eos # (Auto) 0.2, Baso # (Auto) 0.0, Sodium 137, Potassium 3.7, Chloride 106, Carbon Dioxide 21 L, Anion Gap 13.7, BUN 13, Creatinine 0.60, Estimated Creat Clear 112, Estimated GFR 121, Est GFR ( Amer) 146, Glucose 103 H, Calcium 9.2, Magnesium 1.6, Total Bilirubin 0.2, AST 33, ALT 24, Alkaline Phosphatase 58, Total Protein 6.8, Albumin 3.9, Globulin 2.9, Albumin/Globulin Ratio 1.3 Orders (Tests/Meds): ED MEDICATIONS Discontinued Medications Generic Name Dose Route Start Last Admin Trade Name Freq PRN Reason Stop Dose Admin Sodium Chloride 1,000 mls @ 500 mls/hr 11/23/24 16:30 11/23/24 16:37 Sod Chlor 0.9% 1000ml Bag IV 12/23/24 16:29 500 mls/hr .Q2H NICK Administration Ondansetron HCl 4 mg 11/23/24 16:26 11/23/24 16:37 Ondansetron 4mg/2ml Vial IV 11/23/24 16:27 4 mg ONCE ONE Administration ORDERS Category Date Time Status CBC w/Auto Diff [Complete Blood Count Auto Diff] Stat Lab 11/23/24 16:20 Completed Comprehensive Metabolic Panel Stat Lab 11/23/24 16:20 Completed MG [Magnesium] Stat Lab 11/23/24 16:20 Completed Urinalysis-Acute [Urinalysis and Microscopic] Stat Lab 11/23/24 16:11 Completed Urine Culture Stat Micro 11/23/24 16:11 Received Medical Decision Narrative: In summary patient is a 24-year-old female with past medical history described above who presents to the emergency department for evaluation of low blood pressure at home in the setting of hyperemesis gravidarum in . Patient is hemodynamically stable and nontoxic-appearing upon arrival, afebrile. Differential includes metabolic derangement, dehydration, among others. Workup will be conducted with hematologic labs, urinalysis. Initial inventions include Zofran, crystalloid bolus. Patient has previously documented intrauterine being managed by Dr. Cowart therefore additional imaging was considered but will be deferred. Patient is positive Rh and although she had previous vaginal bleeding does not have any currently. No need for RhoGAM. Initial workup reviewed by me, hematologic labs are nonactionable, no THI or critical electrolyte abnormality. Urinalysis not consistent with overt infection, it is contaminated and patient does not have any significant dysuria. Upon repeat evaluation patient continued to be well-appearing. Patient is appropriate for outpatient management at this time will be discharged with a course of doxylamine and pyridoxine and was given return precautions will follow-up on an outpatient basis. Critical Care <Deborah Camacho (ED), [employer] - Last Filed: 11/23/24 20:41> Critical Care Time Critical Care Time: No
[2024-11-23 16:50] LABS: Microscopic, Urine URINE MICROSCOPIC (MICROSCOPIC)
[2024-11-23 16:52] LABS: Basophils % 0.4 % (0.1-2.0); Eosinophils # 0.2 K/mm3 (0.0-0.4); Eosinophils % 2.7 % (0.1-12.0); Hematocrit 36.4 % (37.0-47.0); Hemoglobin 11.8 g/dL (12.2-16.2); Lymphocytes # 1.8 K/mm3 (0.7-4.5); Lymphocytes % 25.3 % (10-50); Mean Corpuscular HGB Conc 32.4 g/dL (31.8-35.4); Mean Corpuscular Hemoglobin 26.8 pg (27.0-31.2); Mean Corpuscular Volume 82.7 fl (81-99); Mean Platelet Volume 10.9 fl (7.4-10.4); Monocytes # 0.5 K/mm3 (0.1-1.0); Monocytes % 6.9 % (1.7-9.3); Neutrophils # 4.6 K/mm3 (1.8-7.8); Neutrophils % 64.3 % (37.0-80.0); Platelet Count 261 K/mm3 (142-424); Red Cell Distribution Width 13.2 % (11.5-17.5); White Blood Count 7.1 K/mm3 (4.8-10.8)
[2024-11-23 17:11] LABS: Magnesium 1.6 mg/dl (1.6-2.3)
[2024-11-23 17:15] VITALS: BP 118/64
[2024-11-23 17:42] VITALS: BP 116/58; PULSE 66; RESP 17; TEMP 36.7; O2SAT 98
[2024-11-23 17:46] VITALS: BP 116/58
[2024-11-23 18:01] LABS: Albumin Level 3.9 g/dl (3.5-5.0); Chloride 106 mmol/L (98-107); Potassium 3.7 mmoL/L (3.5-5.1); Sodium 137 mmol/L (136-145)
[2024-11-23 18:04] LABS: Alanine Aminotransferase 24 U/L (12-78); Albumin/Globulin Ratio 1.3 (1.1-1.8); Alkaline Phosphatase 58 U/L (38-126); Anion Gap 13.7 mEq/L (5-15); Aspartate Amino Transferase 33 U/L (14-36); Bilirubin,Total 0.2 mg/dl (0.2-1.3); Blood Urea Nitrogen 13 mg/dl (7-17); Carbon Dioxide 21 mmol/L (22.0-30.0); Creatinine Clearance Estimated 112 mL/min (50-200); Estimated Glomerular Filt Rate 121 ml/min (>60); GFR (African American) 146 ML/MIN (>60); Globulin 2.9 g/dL (1.3-3.2); Total Protein,Serum 6.8 g/dl (6.3-8.2)
[2024-11-23 18:05] LABS: Calcium 9.2 mg/dl (8.4-10.2); Glucose 103 mg/dl (74-100)
[2024-11-23 18:16] LABS: Appearance,Urine CLEAR (Clear); Bilirubin,Urine Negative (Negative); Blood, Urine Negative (Negative); Color,Urine YELLOW (Yellow); Glucose,Urine (UA) Negative (Negative); Ketones,Urine Negative (Negative); Leukocyte Esterase,Urine TRACE (Negative); Nitrate,Urine Negative (Negative); Protein,Urine Negative (Negative); Specific Gravity, Urine 1.025 (1.005-1.030); Urobilinogen,Urine 0.2 EU/dl (0.2)
[2024-11-23 18:33] LABS: Bacteria,Urine 1+ /lpf
== END 2024-11-23 18:12 | disposition home or self-care (01) ==
PROVIDERS: Nurse Practitioner; Emergency Provider Emergency Medicine; PCP Student in an Organized Health Care Education/Training Program
DX: O21.0 Mild hyperemesis gravidarum (principal); R53.1 Weakness; I95.9 Hypotension, unspecified; Z3A.12 12 weeks gestation of pregnancy
CPT/HCPCS: 80053; 81001; 83735; 85025; 87086; 96361; 96374; 99283; J2405; J7030

== ENCOUNTER 2024-11-27 08:47 | Emergency (ER) | payer BC, SELFPAY ==
[2024-11-27 09:31] VITALS: BP 119/70; PULSE 91; RESP 18; TEMP 36.4; O2SAT 98; BMI 54.6
--- NOTE | 2024-11-27 09:41 | ED_ITS ---
Discharge Plan Disposition Patient Disposition: Home, Self-Care Condition: Good Prescriptions Prescriptions: No Action fluticasone propionate 50 mcg/actuation spray,suspension 1 spray intranasal DAILY Qty: 16 2RF Rx Instructions: administer into each nostril bupropion HCl 150 mg tablet extended release 24 hr 150 mg PO DAILY promethazine 25 mg tablet 25 mg PO DIRECTED doxylamine succinate 25 mg tablet 25 mg PO Q6H PRN (Reason: nausea) Qty: 20 0RF pyridoxine (vitamin B6) 10 mg tablet 10 mg PO Q6 Qty: 30 0RF diltiazem HCl 120 mg capsule,extended release 24hr 120 mg PO DAILY Referrals Follow up/Referrals: Stephanie Allen PA [Primary Care Provider] - See instructions Vicky Gonzalez DPM [Staff Physician] - See instructions Activity Restrictions/Add. Instructions Additional Instructions/Restrictions: Rest the extremity, apply ice for 15 minutes as tolerated three or four times per day, Wear the karishma wrap for compression, Elevate the extremity as tolerated while you are resting. Take tylenol for pain. Follow up with Dr. Gonzalez (podiatry). I put in a referral but you need to call her office and schedule an appointment. If your symptoms are not getting better within the next 2 days, please return to possibly have x-rays with shielding done. Follow up with your regular doctor. GO TO THE ER FOR ANY WORSENING SYMPTOMS Clinical Impressions Clinical Impression: Right ankle sprain, Right foot sprain, Stand Alone Forms Stand Alone Forms: Work/School Release Instructions Patient Instructions: DI for Ankle Sprain, DI for Foot Sprain, How to Apply an Elastic Wrap on Ankle Print Language Print Language: Brazilian Discharge ED Provider: Abelino Edwards [facility] General Stated complaint: fall ao R ankle pain 11/27 Mode of Arrival: Ambulatory Source of Information: Patient Time Seen by Provider: 11/27/24 09:41 Description of Symptoms (Recalled from Triage Doc. by RN): FELL AND HURT RIGHT FOOT AND ANKLE CURRENTLY 13 WEEKS HEENT Symptoms (Recalled from RN notes): No Resp Symptoms (Recalled from RN notes): No Skin Symptoms (Recalled from RN notes): No MS Symptoms (Recalled from RN notes): Yes Functional Status (Recalled from RN notes): WNL History of Present Illness Provider Complaint: She states that earlier this morning, she twisted her right ankle and foot. Since then she has had right ankle and foot pain with mild swelling of her ankle. She states that bearing weight on the foot makes her symptoms worse, but she is able to walk on it. She is 13 weeks , so she is apprehensive about having x-rays done. She denies any other injury. She states that she did not fall completely, so she did not hurt her abdomen or anything related to her . Related Data Home Medications ?Medication ?Instructions ?Recorded ?Confirmed bupropion HCl 150 mg 24 hr tablet, 150 mg PO DAILY 10/11/23 11/27/24 extended release diltiazem HCl 120 mg 120 mg PO DAILY 08/23/24 11/27/24 capsule,extended release 24 hr promethazine 25 mg tablet 25 mg PO DIRECTED 10/31/24 10/31/24 Previous Rx's ?Medication ?Instructions ?Recorded fluticasone propionate 50 1 spray intranasal DAILY #16 grams 08/29/24 mcg/actuation nasal spray,suspension doxylamine succinate 25 mg tablet 25 mg PO Q6H PRN nausea #20 tabs 11/23/24 pyridoxine (vitamin B6) 10 mg 10 mg PO Q6 #30 tabs 11/23/24 tablet Allergies Allergy/AdvReac Type Severity Reaction Status Date / Time propranolol Allergy Unknown Rash Verified 10/03/24 12:55 Worker's Comp Is this a Worker's Comp case?: No [facility] Disclaimer: The information contained in this section may have been updated after the patient was seen, as this information can be updated by other users. 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 Anemia Depression Anxiety Surgical History History of tonsillectomy Social History Smoking Status: Never smoker alcohol intake: never current occupational status: employed Travel in the last 8 weeks: None Have you lived/traveled outside US in past 30 days?: No Contact w/someone who lives/traveled outside US past 30 days?: No Exposure to someone with infectious disease in past 14 days?: No Do you have a fever (greater than 100.4 F or 38 C)?: No Have you tested positive for COVID-19: No Exposed to someone with COVID-19 in past 14 days?: No Do you have a sore throat?: No Do you have a cough?: No Do you have any weakness?: No Do you have any diarrhea?: No Are you experiencing any unusual bleeding?: No Do you have any muscle aches/pain?: No Do you have any abdominal pain?: No Are you experiencing loss of taste or smell?: No ROS Obtained: Yes All systems reviewed & no additional complaints except as documented Constitutional Constitutional: Denies chills and Denies fever(s) Eyes Eyes: Denies eye discharge ENT Ears, Nose, Mouth, and Throat: Denies dizziness, Denies otalgia and Denies sore throat Cardiovascular Cardiovascular: Denies chest pain Respiratory Respiratory: Denies shortness of breath, Denies chest congestion, Denies cough, Denies stridor and Denies wheezing Gastrointestinal Gastrointestingal: Denies nausea or vomiting Musculoskeletal Musculoskeletal: Reports as per HPI Integumentary/Breasts Skin/Breast: Denies redness, Denies rash and Denies wounds Neurologic Neurologic: Denies dizziness, Denies paresthesias and Denies radicular pain Allergic/Immunologic Allergic/Immunologic: Denies wheezing Physical Exam General General appearance: alert and in no apparent distress Head Head exam: atraumatic, normocephalic and normal inspection Eye Eye exam: Present normal appearance, PERRL and EOMI ENT ENT exam: Present normal exam, normal oropharynx, mucous membranes moist, TM's normal bilaterally and normal external ear exam Neck Neck exam: Present normal inspection, full ROM and trachea midline; Absent meningismus or lymphadenopathy Chest Chest inspection: Present normal inspection and symmetric chest wall rise; Absent tenderness Respiratory Respiratory exam: Present normal lung sounds bilaterally; Absent respiratory distress Cardiovascular Cardiovascular exam: Present regular rate and normal rhythm; Absent JVD Abdominal Exam Abdominal exam: Present soft and normal bowel sounds; Absent distention, tenderness or guarding Extremities Exam Extremities exam: Present normal capillary refill; Absent calf tenderness Expanded Lower Extremity Exam Right: Knee exam: Present normal inspection, full ROM and knee extension intact; Absent tenderness Lower leg exam: Present normal inspection, full ROM and Achilles tendon intact; Absent tenderness or Homans' sign Ankle exam: Present full ROM and tenderness; Absent swelling, abrasion, laceration, ecchymosis, deformity, crepitus, dislocation, erythema, tenderness over talofibular lig or anterior draw sign Foot/toe exam: Present full ROM and tenderness; Absent swelling, abrasion, laceration, ecchymosis, deformity, crepitus, dislocation, erythema, amputation, puncture wound, foreign body, calcaneal tenderness, tenderness at base of 5th metatarsal, nail avulsion or subungual hematoma Neurovascular/Tendon exam: Present normal capillary refill, normal 2-point discrimination and normal fine/light touch; Absent pulse deficit, motor deficit, sensory deficit, tendon deficit, extremity cold to touch or pallor Gait: observed and normal Back Exam Back exam: Present normal inspection; Absent tenderness Neurological Exam Neurological exam: Present alert and oriented X3 Psychiatric Psychiatric exam: Present normal affect and normal mood Skin Skin exam: Present warm, dry, intact and normal color Lymphatic Lymphatic Findings: no adenopathy Medical Decision Making Medical Records Medical records reviewed: No I reviewed the patient's medical records. Screening: Per USPSTF and CDC recommendations, given the prevalence of disease in our region, it is our hospital?s policy to screen for HIV and viral Hepatitis for all patients aged 18 and over and those with ongoing risk factors. Ananth Inquiry Pt receiving controlled substance: No Vital Signs: 11/27/24 09:31 Temperature 97.6 F Temperature Source Oral Pulse Rate [Left Radial] 91 H Respiratory Rate 18 Blood Pressure [Left Arm] 119/70 Blood Pressure Mean [Left Arm] 86 02 Sat by Pulse Oximetry 98 Orders (Tests/Meds): ORDERS Category Date Time Status XR ankle RT 2V Stat Exams 11/27/24 08:50 Ordered XR foot RT 2V Stat Exams 11/27/24 08:50 Ordered Medical Decision Narrative: She is . At this time it was elected to not obtain x-rays of her foot and ankle.
[2024-11-27 10:31] VITALS: BP 119/70; PULSE 91; RESP 18; TEMP 36.4
== END 2024-11-27 10:32 | disposition home or self-care (01) ==
PROVIDERS: Emergency Provider Nurse Practitioner Family; PCP Student in an Organized Health Care Education/Training Program
DX: S93.601A Unspecified sprain of right foot, initial encounter (principal); S93.401A Sprain of unspecified ligament of right ankle, initial encounter; Z34.90 Encounter for supervision of normal pregnancy, unspecified, unspecified trimester
CPT/HCPCS: 99213; G0381

== ENCOUNTER 2024-12-19 10:10 | Outpatient (CLI) | payer BC, SELFPAY ==
[2024-12-19 16:00] LABS: Coronavirus 19, PCR Not Detected (NotDetected); Human Rhinovirus Not Detected (NotDetected); Influenza A, PCR Not Detected (NotDetected); Influenza B, PCR Not Detected (NotDetected); Respiratory Syncytial Virus Not Detected (NotDetected)
== END 2024-12-19 23:59 | disposition home or self-care (01) ==
LOC: LAB.DROPOF 12-20 11:09
PROVIDERS: PCP Nurse Practitioner; Visit Provider Nurse Practitioner
DX: J02.9 Acute pharyngitis, unspecified (principal); R50.9 Fever, unspecified
CPT/HCPCS: 87631

== ENCOUNTER 2025-01-14 07:52 | Emergency (ER) | payer BC, SELFPAY ==
--- NOTE | 2025-01-14 07:59 | ECG_ITS ---
APPROVED REPORT Exam: Resting ECG HR:79 bpm ECG Measurements Heart Rate 79 AXES AR 160 P 7 QRSd 106 QRS 43 QT 371 T 35 QTc 405 Conclusion SINUS RHYTHM NORMAL ECG UNCONFIRMED REPORT Electronically signed by : GEOFF AMAOT, 01/15/2025 05:54:35
[2025-01-14 08:04] VITALS: BP 115/65; PULSE 85; RESP 16; TEMP 37.1; O2SAT 98; BMI 53.9
--- NOTE | 2025-01-14 08:23 | PC.NURSE ---
0759- Patient to room 11 via wheelchair, mother at bedside. A & O x 4, assisted to stretcher. EKG completed and given to the ED provider. Placed on cardiac, BP, and SpO2 monitoring.Bed in low position, call carmichael in reach.
--- NOTE | 2025-01-14 08:25 | PC.NURSE ---
0805- ED provider at bedside for evaluation.
[2025-01-14 08:28] LABS: Basophils % 0.4 % (0.1-2.0); Eosinophils # 0.2 K/mm3 (0.0-0.4); Eosinophils % 2.2 % (0.1-12.0); Hematocrit 37.4 % (37.0-47.0); Hemoglobin 11.9 g/dL (12.2-16.2); Lymphocytes # 1.4 K/mm3 (0.7-4.5); Lymphocytes % 16.5 % (10-50); Mean Corpuscular HGB Conc 31.8 g/dL (31.8-35.4); Mean Corpuscular Hemoglobin 26.4 pg (27.0-31.2); Mean Corpuscular Volume 83.1 fl (81-99); Mean Platelet Volume 10.8 fl (7.4-10.4); Monocytes # 0.5 K/mm3 (0.1-1.0); Monocytes % 5.8 % (1.7-9.3); Neutrophils # 6.3 K/mm3 (1.8-7.8); Neutrophils % 74.2 % (37.0-80.0); Platelet Count 221 K/mm3 (142-424); Red Cell Distribution Width 14.2 % (11.5-17.5); White Blood Count 8.5 K/mm3 (4.8-10.8)
[2025-01-14 08:30] LABS: Albumin Level 4.4 g/dl (3.5-5.0); Chloride 106 mmol/L (98-107); Potassium 4.4 mmoL/L (3.5-5.1); Sodium 133 mmol/L (136-145)
[2025-01-14 08:32] LABS: Blood Urea Nitrogen 10 mg/dl (7-17); Creatinine Clearance Estimated 135 mL/min (50-200); Estimated Glomerular Filt Rate 149 ml/min (>60); GFR (African American) 180 ML/MIN (>60)
[2025-01-14 08:33] LABS: Alanine Aminotransferase 24 U/L (12-78); Albumin/Globulin Ratio 1.4 (1.1-1.8); Alkaline Phosphatase 62 U/L (38-126); Anion Gap 12.4 mEq/L (5-15); Aspartate Amino Transferase 37 U/L (14-36); Bilirubin,Total 0.5 mg/dl (0.2-1.3); Calcium 9.8 mg/dl (8.4-10.2); Carbon Dioxide 19 mmol/L (22.0-30.0); Globulin 3.1 g/dL (1.3-3.2); Glucose 88 mg/dl (74-100); Magnesium 1.5 mg/dl (1.6-2.3); Total Protein,Serum 7.5 g/dl (6.3-8.2)
[2025-01-14 08:38] VITALS: BP 101/48; PULSE 87; RESP 16; O2SAT 98
[2025-01-14 08:43] LABS: NT Pro Brain Natriuretic Pep. 27.6 pg/mL (0-125)
[2025-01-14 08:50] LABS: T4 (Thyroxine) 17.7 ug/dl (5.53-11.0)
[2025-01-14 08:50] LABS: Activated Partial Thrombo Time 28.1 seconds (22.8-30.6)
[2025-01-14] MEDS: MAGNESIUM SULFATE IN WATER 2 GM/50 ML PIGGYBACK IV (08:53)
[2025-01-14] MEDS: ACETAMINOPHEN 500MG TAB 1000 MG PO (08:54)
[2025-01-14] MEDS: LACTATED RINGERS 1000ML 1,000 ML 999 ML IV (08:54)
[2025-01-14 08:55] LABS: Troponin I < 0.01 ng/ml (0.00-0.034)
--- NOTE | 2025-01-14 08:55 | PC.NURSE ---
0852- Clean catch urine specimen collected, labelled at bedside, sent for analysis. Patient expresses no needs at this time. A & O x 4. No distress noted. Awaiting results and disposition.
[2025-01-14] MEDS: DEXAMETHASONE 4MG/ML 1ML VIAL 10 MG IV (08:56)
[2025-01-14] MEDS: METOCLOPRAMIDE HCL 10MG/2ML VIAL 10 MG IVP (08:56)
--- NOTE | 2025-01-14 08:57 | HMH.EDGENADL ---
Discharge Plan Disposition Patient Disposition: Home, Self-Care Chief Complaint: Syncope Prescriptions Prescriptions: No Action One-A-Day 400 mcg- 25 mg tablet,chewable 400 tab PO DAILY bupropion HCl 150 mg tablet extended release 24 hr 150 mg PO DAILY Referrals Follow up/Referrals: Denver Browning APRN [Primary Care Provider] - See instructions Activity Restrictions/Add. Instructions Additional Instructions/Restrictions: Follow-up with your family doctor and cardiology regarding this visit to the emergency department. Let cardiology know that you have a Holter monitor placed, be sure to keep track of episodes that you are having so they can review them on the surveillance monitor. Continue diltiazem 120 mg daily and follow-up with cardiology as well. If you continue having headaches, 1000 mg of acetaminophen, 800 mg of magnesium oxide can help along with some fluids. Call your family doctor to establish care for this visit to the emergency department and schedule follow-up within 48 hours to ensure improvement. If you have any worsening of your condition or any other concerning signs or symptoms, return to the emergency department or your primary care doctor for further evaluation. Clinical Impressions Clinical Impression: Headache, Syncope Instructions Patient Instructions: DI for Syncope in Adults (Fainting), DI for Syncope in Children (Fainting) Print Language Print Language: Somali Discharge ED Provider: Dennis Mehta General Adult HPI General Chief complaint: Syncope Stated complaint: passed out @0640 hit head 20wks Time Seen by Provider: 01/14/25 08:01 Mode of Arrival: Wheelchair Source of Information: Patient and Relative Description of Symptoms (Recalled from ER Triage Doc. by RN): Patient reports that she passed out when she sat up too quickly on the couch. Patient reports multiple syncopal episodes in the last two weeks. Patient has been evaluated by PCP, [facility] and Cardiology. Patient was taken off of diltiazem 1 week ago by cardiology. Patient is 20 weeks IUP, LMP 08/28/24. History of Present Illness HPI narrative: Please note that above description of symptoms, in this electronic medical record under categorization of recalled from ER triage doctor by RN are reflective of an initial nursing assessment, however, is not reflective of my full history and physical exam that was personally taken and clarified. Consequentially, this preceding description of symptoms, which may include the patient's categorized chief complaint in the EMR, do not reflect my personal clinical impression, and the ultimate description of history of present illness and patient stated complaints should be deferred to this section of the note. Unless stated otherwise or congruent with this section of the note, additional signs, symptoms, or incongruence should be interpreted as inaccurate with my clinical impression. Related Data Home Medications ?Medication ?Instructions ?Recorded ?Confirmed vitamin no.167-folic acid 400 tab PO DAILY 12/19/24 01/14/25 400 mcg-dha 25 mg chewable tablet (One-A-Day ) bupropion HCl 150 mg 24 hr tablet, 150 mg PO DAILY 01/14/25 01/14/25 extended release Allergies Allergy/AdvReac Type Severity Reaction Status Date / Time propranolol Allergy Unknown Rash Verified 01/06/25 10:12 [facility] Disclaimer: The information contained in this section may have been updated after the patient was seen, as this information can be updated by other users. 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 and not yet delivered in second trimester Viral upper respiratory infection Anemia Depression Anxiety Surgical History History of tonsillectomy Social History Smoking Status: Former smoker tobacco type: e-cigarettes smoking status stop date: 08/28/2024 alcohol intake: never current occupational status: employed Travel in the last 8 weeks: None household members: spouse Have you lived/traveled outside US in past 30 days?: No Contact w/someone who lives/traveled outside US past 30 days?: No Exposure to someone with infectious disease in past 14 days?: No Do you have a fever (greater than 100.4 F or 38 C)?: No Have you tested positive for COVID-19: No Exposed to someone with COVID-19 in past 14 days?: No Do you have a sore throat?: No Do you have a cough?: No Do you have any weakness?: No Do you have any diarrhea?: No Are you experiencing any unusual bleeding?: No Do you have any muscle aches/pain?: No Do you have any abdominal pain?: No Are you experiencing loss of taste or smell?: No Other 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 Have you received the Pneumonia Vaccine: No ROS Obtained: Yes All systems reviewed & no additional complaints except as documented Physical Exam General General appearance: alert Head Head exam: atraumatic and normocephalic Eye Eye exam: Present normal appearance, PERRL and EOMI Neck Neck exam: Present normal inspection, full ROM and trachea midline Respiratory Respiratory exam: Absent respiratory distress, wheezes, stridor, accessory muscle use or prolonged expiratory phase Cardiovascular Cardiovascular exam: Present other (Pulses equal symmetric in upper and lower extremities) Abdominal Exam Abdominal exam: Present soft; Absent distention, tenderness or pulsatile mass Extremities Exam Extremities exam: Absent edema Neurological Exam Neurological exam: Present alert, oriented X3 and CN II-XII intact; Absent motor sensory deficit Skin Skin exam: Present warm and dry; Absent diaphoresis or erythema Medical Decision Making Medical Records Medical records reviewed: Yes I reviewed the patient's medical records. Screening: Per USPSTF and CDC recommendations, given the prevalence of disease in our region, it is our hospital?s policy to screen for HIV and viral Hepatitis for all patients aged 18 and over and those with ongoing risk factors. Ananth Inquiry Pt receiving controlled substance: No Ananth was queried for this patient: No Vital Signs: 01/14/25 08:04 01/14/25 08:38 Temperature 98.8 F Temperature Source Oral Pulse Rate 87 Pulse Rate [Left] 85 Respiratory Rate 16 16 Blood Pressure 101/48 L Blood Pressure [Left Arm] 115/65 Blood Pressure Mean [Left Arm] 81 Blood Pressure Source [Left Arm] Automatic Cuff Blood Pressure Position [Left Arm] Supine 02 Sat by Pulse Oximetry 98 98 Oxygen Delivery Method Room Air Room Air Lab Data Lab Results 01/14/25 08:18: WBC 8.5, RBC 4.50, Hgb 11.9 L, Hct 37.4, MCV 83.1, MCH 26.4 L, MCHC 31.8, RDW 14.2, Plt Count 221, MPV 10.8 H, Neut % (Auto) 74.2, Lymph % (Auto) 16.5, [place] % (Auto) 5.8, Eos % (Auto) 2.2, Baso % (Auto) 0.4, Neut # (Auto) 6.3, Lymph # (Auto) 1.4, [place] # (Auto) 0.5, Eos # (Auto) 0.2, Baso # (Auto) 0.0, Sodium 133 L, Potassium 4.4, Chloride 106, Carbon Dioxide 19 L, Anion Gap 12.4, BUN 10, Creatinine 0.50 L, Estimated Creat Clear 135, Estimated GFR 149, Est GFR ( Amer) 180, Glucose 88, Calcium 9.8, Magnesium 1.5 L, Total Bilirubin 0.5, AST 37 H, ALT 24, Alkaline Phosphatase 62, Troponin I < 0.01, NT-Pro-B Natriuret Pep 27.6, Total Protein 7.5, Albumin 4.4, Globulin 3.1, Albumin/Globulin Ratio 1.4, TSH 1.89, Thyroxine (T4) 17.7 H 01/14/25 08:26: APTT 28.1 01/14/25 08:18 01/14/25 08:18 Orders (Tests/Meds): ED MEDICATIONS Discontinued Medications Generic Name Dose Route Start Last Admin Trade Name Freq PRN Reason Stop Dose Admin Acetaminophen 1,000 mg 01/14/25 08:38 01/14/25 08:54 Acetaminophen 500mg Tab PO 01/14/25 08:39 1,000 mg ONCE ONE Administration Dexamethasone Sodium Phosphate 10 mg 01/14/25 08:36 01/14/25 08:56 Dexamethasone 4mg/Ml 1ml Vial IV 01/14/25 08:37 10 mg ONCE ONE Administration Diltiazem HCl 120 mg 01/14/25 08:52 01/14/25 09:01 Diltiazem Er 120mg Capsule PO 01/14/25 08:53 120 mg ONCE ONE Administration Lactated Ringer's 1,000 mls @ 999 mls/hr 01/14/25 08:36 01/14/25 08:54 Lactated Ringer's 1000 Ml Bag IV 01/14/25 09:36 999 mls/hr .Q1H1M ONE Administration Magnesium Sulfate 2 gm in 50 mls @ 50 mls/hr 01/14/25 08:36 01/14/25 08:53 Magnesium Sulfate 2gm/50ml Premix IV 01/14/25 09:35 50 mls/hr ONCE ONE Administration Metoclopramide HCl 10 mg 01/14/25 08:36 01/14/25 08:56 Metoclopramide Hcl 10mg/2ml Vial IVP 01/14/25 08:37 10 mg ONCE ONE Administration ORDERS Category Date Time Status Complete Blood Count Auto Diff Stat Lab 01/14/25 08:18 Completed Comprehensive Metabolic Panel Stat Lab 01/14/25 08:18 Completed Magnesium Stat Lab 01/14/25 08:18 Completed NT Pro Brain Natriuretic Pep. Stat Lab 01/14/25 08:18 Completed PTT [Activated Partial Thrombo Time] Stat Lab 01/14/25 08:26 Completed T4 (Thyroxine) Stat Lab 01/14/25 08:18 Completed TSH [Thyroid Stimulating Hormone] Stat Lab 01/14/25 08:18 Completed Troponin I Q3H Lab 01/14/25 11:15 Ordered Troponin I Q3H Lab 01/14/25 14:15 Ordered Troponin I Stat Lab 01/14/25 08:18 Completed Urinalysis and Microscopic Stat Lab 01/14/25 08:52 Received ECG holter initial pfn Stat Y 01/14/25 08:56 Completed Medical Decision Narrative: 24-year-old female who is approximately 20 weeks with known history of syncopal episodes currently following with OB, cardiology, family physician presenting with syncopal episode. Patient states that she had another syncopal episode this morning. She was taken off of her diltiazem late last week 120 mg daily. Feels that she has been having headaches since that time. She says that since discontinuing diltiazem, she had 48 hours and felt okay, then she has had daily syncopal episodes since. Has also had presyncopal episodes throughout the days as well. Today, she states that she was having a presyncopal episode, did not feel well with. States that she felt lightheaded, broke out in a sweat, then woke up on the floor. was with her, she was not unconscious for more than few seconds. No postictal period. Patient states that she is actually feeling much better today since the episode. Patient does state that she thinks this is probably related to the diltiazem, also has been getting more palpitations since stopping the diltiazem. Has not been giving a specific diagnosis that may be causing all of these, however has been given numerous ideas by various providers. History was obtained via conversation with patient and mother. On arrival, patient hemodynamically stable, alert, oriented x4, appropriate, GCS 15, moving all extremities spontaneously, pupils equal and reactive to light. Full physical exam performed and significant for very clinically well-appearing female no acute distress. Cardiopulmonary exam within normal limits. She is normotensive and nontachycardic. Oxygenating without issue. No lower extremity edema. Speaking in full sentences. Neurologically intact and unremarkable overall. Differential includes POTS, vasovagal, orthostatic, metabolic abnormality, endocrinologic abnormality, less likely to be ACS, UT, CHF, dissection, intracranial hemorrhage, PE, among others.. Patient placed on continuous cardiac monitoring and continuous pulse ox with initial blood pressure 115/65, heart rate 85, saturation 98% on room air. Independent interpretation of EKG shows sinus rhythm 79 bpm with OK interval 160, QRS 106, QTc 405. Normal axis with no acute ischemic change. Patient was given fluids, magnesium, Reglan, for symptomatic management and correction of underlying abnormalities. Workup independently interpreted and significant for nonactionable CBC. Chemistry with mild hyponatremia, this was repleted IV with normal saline. Kidney function normal. Magnesium a little low, this was also offered and repleted IV. Troponin negative, BNP negative, TSH normal, T4 level elevated consistent with changes. On reevaluation, patient states that she is feeling much better. No headache. She was also given first dose of diltiazem here. Further discussion had with patient regarding home-going. Holter monitor was placed, recommended that she continue monitoring for the symptoms over the next 48 hours and follow-up with cardiology, she voiced understanding. Also states that she will follow-up with [facility] [facility] and I feel this is appropriate. Consideration of further specific workup was considered, but patient not having any abdominal complaints, so ultrasound, urine, etc. were deferred at this time. Patient also having headaches, CT head was considered, but not deemed necessary. Not thunderclap, headache waxes and wanes throughout the day, has been consistent on and off for the past few days and unlikely to present with any acute abnormality in the head on CT. Radiation risks also do not outweigh benefits. Because patient at baseline without signs or symptoms of clinical decompensation, deemed appropriate for discharge. Results were relayed to patient who voiced understanding and were agreeable to outpatient management and follow up. I discussed my clinical impression with patient and answered all questions. At this time, the evidence for any other entities in the differential is insufficient to warrant any further testing or ED observation. This was explained as well. Advisory was given that persistent or worsening symptoms require further evaluation. I confirmed the understanding of this discussion. Genetic Scientist disclaimer Much of this encounter note is an electronic logistics planner spoken language to printed text. Electronic logistics planner of the spoken language may permit errors. Although I have reviewed the note, some errors may still exist. Critical Care Critical Care Time Critical Care Time: No
--- NOTE | 2025-01-14 08:58 | PC.NURSE ---
Respiratory notified of need for 48 hour holter monitor.
[2025-01-14] MEDS: dilTIAZem ER 120MG CAPSULE 120 MG PO (09:01)
[2025-01-14 09:04] LABS: Thyroid Stimulating Hormone 1.89 uIU/mL (0.465-4.68)
[2025-01-14 09:06] LABS: Microscopic, Urine URINE MICROSCOPIC (MICROSCOPIC)
--- NOTE | 2025-01-14 09:22 | PC.NURSE ---
0922- RT at bedside to place Holter monitor
--- NOTE | 2025-01-14 09:35 | PC.NURSE ---
I ROUNDED ON THE PT. NO NEW COMPLAINTS AT THIS TIME. NO NEEDS VOICED. CALL [facility] IN REACH.
--- NOTE | 2025-01-14 09:55 | PC.NURSE ---
0955- Patient appears to be sleeping, respirations are even and unlabored, no distress noted. Family x 1 remains at bedside.
[2025-01-14 10:26] VITALS: BP 107/56; PULSE 79; RESP 16; TEMP 36.7; O2SAT 99
[2025-01-14 10:32] VITALS: BP 100/62; PULSE 77; RESP 14; TEMP 36.7
[2025-01-14 10:45] LABS: Appearance,Urine Clear (Clear); Color,Urine Yellow (Yellow); Glucose,Urine (UA) Negative (Negative); Ketones,Urine Negative (Negative); Protein,Urine Negative (Negative); Specific Gravity, Urine 1.025 (1.005-1.030)
[2025-01-14 10:46] LABS: Bacteria,Urine Trace /lpf; Bilirubin,Urine Negative (Negative); Blood, Urine Negative (Negative); Leukocyte Esterase,Urine Negative (Negative); Nitrate,Urine Negative (Negative); Urobilinogen,Urine 0.2 EU/dl (0.2)
== END 2025-01-14 10:32 | disposition home or self-care (01) ==
PROVIDERS: Emergency Provider Emergency Medicine; PCP Nurse Practitioner Family
DX: R55 Syncope and collapse (principal); R51.9 Headache, unspecified
CPT/HCPCS: 80053; 81001; 83735; 83880; 84436; 84443; 84484; 85025; 85730; 93005; 93225; 93227; 96361; 96365; 96374; 96375; 99284; J1100; J2765; J3475; J7120

== ENCOUNTER 2025-01-28 08:21 | Outpatient (CLI) | payer BC, SELFPAY ==
[2025-01-28 08:48] VITALS: BP 102/85; PULSE 89; RESP 16; TEMP 36.5; O2SAT 96; BMI 53.9
[2025-01-28 08:57] LABS: Microscopic, Urine URINE MICROSCOPIC (MICROSCOPIC)
[2025-01-28 08:58] LABS: Appearance,Urine CLEAR (Clear); Bilirubin,Urine Negative (Negative); Blood, Urine Negative (Negative); Color,Urine YELLOW (Yellow); Glucose,Urine (UA) Negative (Negative); Ketones,Urine Negative (Negative); Leukocyte Esterase,Urine Negative (Negative); Nitrate,Urine Negative (Negative); Protein,Urine Negative (Negative); Specific Gravity, Urine 1.025 (1.005-1.030); Urobilinogen,Urine 0.2 EU/dl (0.2)
[2025-01-28 09:18] LABS: Bacteria,Urine 1+ /lpf; WBC,Urine Occasional #/hpf (0-3)
--- NOTE | 2025-01-28 09:21 | US_ITS ---
PROCEDURE: US OB FOLLOW UP CLINICAL INDICATION: Passed out slide out of chair, check placenta COMPARISON: No exams were available for comparison FINDINGS: Transabdominal sonographic images of the pelvis were obtained. The following parameters are obtained: From her established due date she is 21weeks 6days Transvaginally the cervix measures 2.71 cm-2.95 cm Viable fetus in the cephalic presentation with a posterior placenta grade 1. There is a questionable anterior accessory lobe to the placenta. It may also represent a contraction. No obvious abruption. heart rate: 153bpm bpm. Amniotic fluid: MVP 4.19 cm. No obvious anomalies evident. Difficult exam due to patient's body habitus. Three-vessel cord, four chamber heart appear normal. IMPRESSION: 1. Viable fetus in the cephalic presentation with a posterior placenta grade 1. There is a questionable anterior accessory lobe. 2. Fluid is within normal limits with an MVP 4.19 cm. 3. Very limited anatomical scan appears normal. 4. Dr. Nix was notified. Dictated by: Ashutosh Waldron MD 01/28/2025 10:45 Ashutosh Waldron MD in [facility] 01/28/2025 10:45
[2025-01-28 09:49] LABS: Basophils % 0.2 % (0.1-2.0); Eosinophils # 0.1 K/mm3 (0.0-0.4); Eosinophils % 1.6 % (0.1-12.0); Hematocrit 35.4 % (37.0-47.0); Hemoglobin 11.4 g/dL (12.2-16.2); Lymphocytes # 1.4 K/mm3 (0.7-4.5); Lymphocytes % 15.3 % (10-50); Mean Corpuscular HGB Conc 32.2 g/dL (31.8-35.4); Mean Corpuscular Hemoglobin 26.5 pg (27.0-31.2); Mean Corpuscular Volume 82.3 fl (81-99); Mean Platelet Volume 10.2 fl (7.4-10.4); Monocytes # 0.5 K/mm3 (0.1-1.0); Monocytes % 5.4 % (1.7-9.3); Neutrophils # 6.8 K/mm3 (1.8-7.8); Neutrophils % 76.9 % (37.0-80.0); Platelet Count 264 K/mm3 (142-424); Red Cell Distribution Width 14.6 % (11.5-17.5); White Blood Count 8.9 K/mm3 (4.8-10.8)
[2025-01-28 10:01] LABS: Alanine Aminotransferase 16 U/L (12-78); Albumin Level 3.8 g/dl (3.5-5.0); Albumin/Globulin Ratio 1.2 (1.1-1.8); Alkaline Phosphatase 58 U/L (38-126); Anion Gap 15.2 mEq/L (5-15); Aspartate Amino Transferase 21 U/L (14-36); Bilirubin,Total 0.4 mg/dl (0.2-1.3); Blood Urea Nitrogen 11 mg/dl (7-17); Calcium 10.1 mg/dl (8.4-10.2); Carbon Dioxide 21 mmol/L (22.0-30.0); Chloride 104 mmol/L (98-107); Creatinine Clearance Estimated 112 mL/min (50-200); Estimated Glomerular Filt Rate 121 ml/min (>60); GFR (African American) 146 ML/MIN (>60); Globulin 3.2 g/dL (1.3-3.2); Glucose 90 mg/dl (74-100); Potassium 4.2 mmoL/L (3.5-5.1); Sodium 136 mmol/L (136-145)
[2025-01-28 10:24] LABS: Activated Partial Thrombo Time 28.3 seconds (22.8-30.6); Prothrombin Time 10.2 seconds (10.1-12.5)
[2025-01-28 10:26] LABS: Fibrinogen 777 mg/dL (229.9-363.5)
== END 2025-01-28 12:32 | disposition home or self-care (01) ==
LOC: OBOUT 08:22 → OB 08:22
PROVIDERS: PCP Nurse Practitioner Family; Visit Provider Obstetrics & Gynecology
DX: O26.892 Other specified pregnancy related conditions, second trimester (principal); R55 Syncope and collapse; Z3A.21 21 weeks gestation of pregnancy; R42 Dizziness and giddiness
CPT/HCPCS: 36415; 76816; 80053; 81001; 85025; 85384; 85610; 85730; G0463

== ENCOUNTER 2025-02-05 09:20 | Outpatient (CLI) | payer BC, SELFPAY | END 2025-02-05 23:59 | disposition home or self-care (01) | LOC: RT 09:21 | PROVIDERS: PCP Nurse Practitioner Family; Visit Provider Nurse Practitioner Family | DX: I49.3 Ventricular premature depolarization (principal); R55 Syncope and collapse | CPT/HCPCS: 93270; 93272 ==

== ENCOUNTER 2025-02-19 08:06 | Outpatient (CLI) | payer BC, SELFPAY ==
--- NOTE | 2025-02-19 08:00 | CA_ITS ---
APPROVED REPORT EXAM: Comprehensive 2D, Doppler, and color-flow Echocardiogram Greenskeeper Laborer: MARIE Owusu, RVS Ht: 5 ft 2 in Wt: 298lbs BSA: 2.26 BP: 124/84 mmHg Indications: 24weeks , Palpitations, syncope 2D Dimensions Left Atrium 4.11 cm F: 2.7 - 3.8 LA Volume 64.80 mL LA Volume Index [id number] mL/m2 (M/F) 16-34 M-Mode Dimensions RVDd 2.97 cm (0.9-2.6) LA Diam 4.27 cm (1.9-4.0) LVDd 5.44 cm (3.5-5.7) LVDs 3.79 cm (3.5-5.7) IVSd 1.00 cm (0.6-1.1) PWd 0.89 cm (0.6-1.1) EF (Teich) 57.10% EPSs 0.54 cm FS 30.30% EDV (Teich) 143.70 mL TAPSE 1.41 (<1.7) ESV (Teich) 61.60 mL LV Diastology E Decel Time 180 (160-240 msec) E/A Ratio 1.34 MED A' 12.80 cm/s LAT A' 9.30 cm/s Aortic Valve ASA Index 1.13 cm2/m2 AoV Peak Agus. 136.0 (50-130 cm/s) AO Peak GR. 7.40 mmHg AO Mean GR. 3.70 (<5 mmHg) AO VTI 23.5 (18-25 cm) ASA (VTI) 2.62 (2.5-4.5 cm2) Mitral Valve MV A Velocity 51.0 (40-130 cm/s) E/A Ratio 1.34 Pulmonary Valve NE End VMAX 179.0 cm/s Left Ventricle The left ventricle is normal size. The left ventricular systolic function is normal. The left ventricular ejection fraction is within the normal range. There is normal left ventricular wall thickness. There is normal LV segmental wall motion. The left ventricular diastolic function is normal. LVEF is 60%. Right Ventricle The right ventricle is normal size. The right ventricular systolic function is normal. Atria The left atrium size is normal. The right atrium size is normal. There is no Doppler evidence of interatrial shunt. Aortic Valve Aortic valve opens well. There is no aortic valvular stenosis. No aortic regurgitation is present. Mitral Valve The mitral valve is normal in structure. No evidence of mitral valve stenosis. Trace mitral regurgitation. Tricuspid Valve Tricuspid valve is grossly normal in structure and function. Trace tricuspid regurgitation. There is insufficient TR jet to estimate RVSP. Pulmonic Valve The pulmonary valve is normal in structure. Trace pulmonic regurgitation. Great Vessels The aortic root is normal in size. IVC is normal in size and collapses >50% with inspiration. Pericardium There is no pericardial effusion. Other Information Study Quality: Adequate Conclusion Normal biventricular systolic function. No significant valvular stenosis or regurgitation. Electronically signed by : Sweta Hernández MD 02/19/2025 12:51:30
== END 2025-02-19 23:59 | disposition home or self-care (01) ==
LOC: RT 08:07
PROVIDERS: PCP Nurse Practitioner Family; Visit Provider Nurse Practitioner Family
DX: R55 Syncope and collapse (principal)
CPT/HCPCS: 93306

== ENCOUNTER 2025-02-20 13:47 | Outpatient (CLI) | payer BC, SELFPAY ==
--- NOTE | 2025-02-20 14:00 | US_ITS ---
PROCEDURE: US OB FOLLOW UP CLINICAL INDICATION: LGA,SD Ratio and PROMISE-NO on GENDER COMPARISON: US US OB FOLLOW UP from 01/28/2025 US US OB TRANSVAGINAL from 02/20/2025 FINDINGS: Transabdominal sonographic images of the pelvis were obtained. The following parameters are obtained: From her established due date she is 25weeks 1day Viable fetus in the cephalic presentation with a posterior placenta grade 1. heart rate: 155bpm bpm. BPD: 25weeks 2days, 43 percentile HC: 24weeks 5days, 15 percentile AC: 25weeks 3days, 47 percentile FL: 25weeks 2days, 40 percentile HC/AC: 1.09 FL/BPD: 0.74 FL/AC: 0.22 Growth percentile: 37 Amniotic fluid: MVP 5.27 cm S/D ratio: 2.6-3.1-normal No obvious anomalies evident. Stomach, bladder, kidneys, three-vessel cord, four chamber heart appear normal. IMPRESSION: 1. Viable fetus in the cephalic presentation with a posterior placenta grade 1. 2. The fluid is within normal limits with an MVP 5.27 cm. 3. SD ratio is normal 2.6-3.1 4. There has been good interval growth with the fetus currently 44th percentile. 5. Limited anatomical scan appears normal although somewhat difficult exam due to patient's body habitus. Dictated by: Ashutosh Waldron MD 02/21/2025 08:14 Ashutosh Waldron MD in [facility] 02/21/2025 08:14
--- NOTE | 2025-02-20 14:45 | US_ITS ---
PROCEDURE: US OB TRANSVAGINAL CLINICAL INDICATION: Check Cervical Length-NO on Gender COMPARISON: US US OB FOLLOW UP from 01/28/2025 FINDINGS: Transvaginal sonographic images of the cervix were obtained. Transvaginally the cervix measures 2.6 cm-2.8 cm. There is no funneling of the cervix. Fetus appears to be in the cephalic presentation. IMPRESSION: 1. The cervix measures 2.6-2.8 cm transvaginally. 2. There is no evidence of funneling of the cervix. 3. Fetus appears to be in the cephalic presentation. Dictated by: Ashutosh Waldron MD 02/21/2025 08:08 Ashutosh Waldron MD in [facility] 02/21/2025 08:08
== END 2025-02-20 23:59 | disposition home or self-care (01) ==
LOC: RAD 13:48
PROVIDERS: PCP Nurse Practitioner Family; Visit Provider Obstetrics & Gynecology
DX: O36.60X0 Maternal care for excessive fetal growth, unspecified trimester, not applicable or unspecified (principal)
CPT/HCPCS: 76816; 76817; 76820

== ENCOUNTER 2025-02-24 08:44 | Outpatient (CLI) | payer BC, SELFPAY ==
[2025-02-24 09:12] VITALS: BMI 54.8
[2025-02-24 09:14] VITALS: BP 119/65; PULSE 102; RESP 18; TEMP 36.9; O2SAT 96; BMI 54.8
[2025-02-24 09:15] LABS: Microscopic, Urine URINE MICROSCOPIC (MICROSCOPIC)
[2025-02-24 09:46] LABS: Appearance,Urine CLEAR (Clear); Bilirubin,Urine Negative (Negative); Blood, Urine Negative (Negative); Color,Urine YELLOW (Yellow); Glucose,Urine (UA) Negative (Negative); Ketones,Urine Negative (Negative); Leukocyte Esterase,Urine TRACE (Negative); Nitrate,Urine Negative (Negative); Protein,Urine Negative (Negative); Urobilinogen,Urine 0.2 EU/dl (0.2)
--- NOTE | 2025-02-24 09:58 | US_ITS ---
PROCEDURE: US OB FOLLOW UP CLINICAL INDICATION: IUP @ 25 5/7 weeks/ Fall COMPARISON: US US OB FOLLOW UP from 01/28/2025 US US OB FOLLOW UP from 02/20/2025 US US OB TRANSVAGINAL from 02/20/2025 FINDINGS: Transabdominal sonographic images of the pelvis were obtained. The following parameters are obtained: From her established due date she is 25weeks 5days Viable fetus in the cephalic presentation with a posterior placenta grade 1. There appears to be an anterior accessory lobe. Placenta is intact with no evidence of abruption. The cervix measures 2.71 cm heart rate: 135bpm bpm. BPD: 26weeks 1day HC: 25weeks 5days AC: 25weeks 5days FL: 25weeks 3days HC/AC: 1.12 FL/BPD: 0.72 FL/AC: 0.22 Growth percentile: 32 Amniotic fluid: MVP 5.20 cm No obvious anomalies evident. profile seen, stomach, bladder, kidneys, three-vessel cord, four chamber heart appear normal. IMPRESSION: 1. Viable fetus in the cephalic presentation with a posterior placenta grade 1. There appears to be an anterior accessory lobe. There is no evidence of abruption. 2. The fluid is within normal limits with an MVP 5.20 cm 3. Fetus has shown good interval growth with a growth percentile of 32 percent. 4. Limited anatomical scan appears normal. Dictated by: Ashutosh Waldron MD 02/24/2025 11:16 Ashutosh Waldron MD in [facility] 02/24/2025 11:16
[2025-02-24] MEDS: ACETAMINOPHEN 325MG TAB 650 MG PO (10:07)
[2025-02-24 10:22] LABS: Bacteria,Urine Trace /lpf
== END 2025-02-24 14:13 | disposition home or self-care (01) ==
LOC: OBOUT 08:45 → OB 08:46
PROVIDERS: PCP Nurse Practitioner Family; Visit Provider Nurse Practitioner Obstetrics & Gynecology
DX: Z04.3 Encounter for examination and observation following other accident (principal); O9A.212 Injury, poisoning and certain other consequences of external causes complicating pregnancy, second trimester; S39.81XA Other specified injuries of abdomen, initial encounter; W10.8XXA Fall (on) (from) other stairs and steps, initial encounter; Z3A.25 25 weeks gestation of pregnancy
CPT/HCPCS: 76816; 81001; G0463

== ENCOUNTER 2025-02-26 09:29 | Outpatient (CLI) | payer BC, SELFPAY ==
[2025-02-26 09:37] VITALS: BMI 54.8
[2025-02-26 09:57] LABS: Microscopic, Urine URINE MICROSCOPIC (MICROSCOPIC)
[2025-02-26 10:05] LABS: Appearance,Urine SL CLOUDY (Clear); Bilirubin,Urine Negative (Negative); Blood, Urine Negative (Negative); Color,Urine YELLOW (Yellow); Glucose,Urine (UA) Negative (Negative); Ketones,Urine Negative (Negative); Leukocyte Esterase,Urine TRACE (Negative); Nitrate,Urine Negative (Negative); Protein,Urine Negative (Negative); Specific Gravity, Urine 1.015 (1.005-1.030); Urobilinogen,Urine 0.2 EU/dl (0.2)
[2025-02-26 10:06] VITALS: BP 102/61; PULSE 101; RESP 17; TEMP 37.3; O2SAT 96; BMI 54.8
[2025-02-26 10:16] LABS: Bacteria,Urine 1+ /lpf; Fetal Membrane Rupture (Rapid) Negative (Negative)
== END 2025-02-26 10:39 ==
LOC: OBOUT 09:31 → OB 09:32
PROVIDERS: PCP Nurse Practitioner Family; Visit Provider Nurse Practitioner Obstetrics & Gynecology
DX: O42.912 Preterm premature rupture of membranes, unspecified as to length of time between rupture and onset of labor, second trimester (principal); Z3A.26 26 weeks gestation of pregnancy
CPT/HCPCS: 81001; 84112; G0463

== ENCOUNTER 2025-03-12 11:00 | Outpatient (CLI) | payer BC, SELFPAY ==
[2025-03-12 12:23] LABS: Basophils % 0.3 % (0.1-2.0); Eosinophils # 0.2 Kmm3 (0.0-0.4); Eosinophils % 1.6 % (0.1-12.0); Hematocrit 33.8 % (37.0-47.0); Hemoglobin 10.7 g/dL (12.2-16.2); Immature Granulocytes # 0.08 10^3uL; Immature Granulocytes % 0.8 %; Lymphocytes # 1.4 K/mm3 (0.7-4.5); Lymphocytes % 14.4 % (10-50); Mean Corpuscular HGB Conc 31.7 g/dL (31.8-35.4); Mean Corpuscular Hemoglobin 26.2 pg (27.0-31.2); Mean Corpuscular Volume 82.6 fl (81-99); Mean Platelet Volume 10.1 fl (7.4-10.4); Monocytes # 0.5 K/mm3 (0.1-1.0); Monocytes % 5.6 % (1.7-9.3); Neutrophils # 7.5 K/mm3 (1.8-7.8); Neutrophils % 77.3 % (37.0-80.0); Nucleated Red Blood Cells # 0 10^3/uL; Nucleated Red Blood Cells % 0 %; Platelet Count 269 K/mm3 (142-424); Red Blood Count 4.09 M/mm3 (4.20-5.40); White Blood Count 9.7 K/mm3 (4.8-10.8)
[2025-03-12 12:29] LABS: Glucose 1 Hour 140 mg/dL (74-100)
[2025-03-12 16:27] LABS: RPR W/RFX Titers Nonreactive (Nonreactive)
== END 2025-03-12 23:59 | disposition home or self-care (01) ==
PROVIDERS: PCP Nurse Practitioner Family; Visit Provider Obstetrics & Gynecology
DX: Z34.02 Encounter for supervision of normal first pregnancy, second trimester (principal); Z3A.28 28 weeks gestation of pregnancy
CPT/HCPCS: 36415; 82947; 85025; 86592

== ENCOUNTER 2025-03-17 07:18 | Outpatient (CLI) | payer BC, SELFPAY ==
[2025-03-17 08:03] LABS: Glucose,Fasting 98 mg/dl (74-100)
[2025-03-17 08:52] LABS: Glucose 1 Hour 139 mg/dL (74-100)
[2025-03-17 10:31] LABS: Glucose 2 Hour 106 mg/dL (74-100)
[2025-03-17 11:34] LABS: Glucose 3 Hour 103 mg/dL (74-100)
== END 2025-03-17 23:59 | disposition home or self-care (01) ==
LOC: LAB 07:19
PROVIDERS: PCP Nurse Practitioner Family; Visit Provider Obstetrics & Gynecology
DX: N88.3 Incompetence of cervix uteri (principal); E66.01 Morbid (severe) obesity due to excess calories; Z68.43 Body mass index [BMI] 50.0-59.9, adult
CPT/HCPCS: 36415; 82951

== ENCOUNTER 2025-04-08 12:07 | Outpatient (CLI) | payer BC, SELFPAY ==
[2025-04-08] VITALS (13 sets, daily range): BP systolic 106–140; BP diastolic 44–108; PULSE 104; RESP 16; TEMP 36.8; O2SAT 98; BMI 56.3
--- OUTSIDE RECORDS SUMMARY | 2025-04-08 12:09 | XMS_ITS | Encounter Summary ---
Author Organization Healthcare Address [address] [place] [address] Care Team Providers Care Metal Finisher Name Role Phone Stephanie Allen Primary Care Provider [phone] Encounter Details Date Type Department Care Team (Late st Contact Info) Description 02/21/2025 Telephone Obstetrics & Gynecology [address] [place] [address] James Cowart MD [address] [place] [address] Social History Tobacco Use Types Packs/Day Years Used Date Smoking Tobacco: Former Smokeless Tobacco: Never Alcohol Use Standard Drinks/Week Comments Never 0 (1 standard drink = 0.6 oz pur e alcohol) PHQ-2 Answer Date Recorded Patient Health Questionnaire-2 Score 0 01/22/2025 PHQ-9 Answer Date Recorded Patient Health Questionnaire-9 Score 0 01/03/2025 Estimated Date of Delivery Comme nts Yes 06/04/2025 Based on last me nstrual period of 08/28/2024 (Exact Date) Sex and Gender Information Value Date Recorded Sex Assigned at Not on file Legal Sex Female 1:06 PM EST Gender Identity Not on file Sexual Orientation Not on file documented as of this encounter Miscellaneous Notes * Telephone Encounter - Traci Scott - 02/21/2025 10:15 AM EDT per pt appt no longer needed- transferring to [facility] documented in this encounter Plan of Treatment Not on file documented as of this encounter Goals Goal Patient Goal Type Associated Problems Recent Progress Patient-Stated? Author Delayed Care Plan CPM S24 PP LABOR (OBSTETRICS) No Open Scheduling, Background documented as of this encounter Visit Diagnoses Not on filedocumented in this encounter Additional Health Concerns Active Problems Noted Date Diagnosed Date CPM S24 PP LABOR (OBSTETRICS) 11/19/2024 Assessment Noted Time PHQ-9 Depression Total Score: 0 01/04/20 8:49 AM EST A fall risk assessment has been complete d for the patient 01/22/2025 9:04 AM EDT A Body Mass Index follow-up plan has been documented for the patient 01/22/2025 10:02 AM EDT documented as of this encounter Care Teams Metal Finisher Relationship Specialty Start Date End Date Stephanie Allen PA [address] [place] [address] PCP - General 08/30/24 documented as of this encounter
--- OUTSIDE RECORDS SUMMARY | 2025-04-08 12:09 | XMS_ITS | Referral Summary ---
Author Organization [facility] Address [address] [place] [address] Care Team Providers Care Endocrinologist Name Role Phone Stephanie Allen PA-C Primary Care Provider [phone] Allergies Active Allergy Reactions Criticality Noted Date Comments Propranolol 09/01/2024 Medications No known medications Social History Tobacco Use Types Packs/Day Years Used Date Smoking Tobacco: Former Cigarettes Smokeless Tobacco: Never Tobacco Cessation:Counseling Given: Not Answered Alcohol Use Standard Drinks/Week Comments Never 0 (1 standard drink = 0.6 oz pur e alcohol) Interpersonal Safety Answer Date Record ed Family or friends hurt you Not on file 09/01 Family or friends insult you Not on file 12/2023 Family or friends threaten you Not on file 1 11/01/2023 Family or friends scream or curse at you Not on file 09/01/2024 Food Insecurity Answer Date Recorded Food run out past 12 months Not on file 12/2023 Food did not last past 12 months Not on file 09/01/2024 Employment Answer Date Recorded Help finding and keeping a job Not on file 1 11/01/2023 Family and Community Support Answer Garcia e Recorded Help with Day to Day Activities Not on file 09/01/2024 Feeling Lonely or Isolated Not on file 09/01 Educational Attainment Answer Date Deyvi rded Speak language other than Ethiopian at home Not on file 09/01/2024 Want help with school or training Not on file 09/01/2024 Depression Answer Date Recorded PHQ-2 Risk Not on file 09/01/2024 Disabilities Answer Date Recorded Difficulty concentrating Not on file 024 Difficulty doing errands alone Not on file 1 11/01/2023 Substance Use Answer Date Recorded Used prescription meds for non-medical reasons N ot on file 09/01/2024 Used illegal drugs past 12 months Not on file 09/01/2024 Comments No Sex and Gender Information Value Date Recorded Sex Assigned at Not on file 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 Gender Identity Not on file Sexual Orientation Not on file Last Filed Vital Signs Vital Sign Reading Time Taken Comments Blood Pressure 118/78 09/02/2024 3:04 AM EST Pulse 88 09/02/2024 3:04 AM EST Temperature 36.7 C (98.1 F) 09/02/2024 3:04 AM EST Respiratory Rate 18 09/02/2024 3:04 AM EST Oxygen Saturation 97% 09/01/2024 8:30 PM EST Inhaled Oxygen Concentration - - Weight 131.5 kg (290 lb) 09/01/2024 8:30 PM EST Height 157.5 cm (5' 2 ) 09/01/2024 8:30 PM EST Body Mass Index 53.04 09/01/2024 8:30 PM EST Plan of Treatment Not on file Insurance BLUE CROSS/BLUE SHIELD Care Teams Endocrinologist Relationship Specialty Start Date End Date Stephanie Allen PA-C [address] [facility] [address] [facility] PCP - General 09/01/24
--- OUTSIDE RECORDS SUMMARY | 2025-04-08 12:09 | XMS_ITS | Clinical Summary ---
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 Gender Identity Not on file Sexual Orientation [...] 09/01/2024 8:30 PM EST Plan of Treatment Health Maintenance Due Date Last Done Comments Depression Screening (12+) 2010 HIV Screening 2013 Hepatitis C Screening 2016 Lipid Panel 2018 Pap Smear 2019 COVID-19 VACCINE ( - 2023-2 5 season) 2024 Influenza Vaccine (Season Ended) 2025 09/15/20 20 Tobacco Cessation Counseling and Screening (12+) 09/01/2025 09/01/2024 DTAP/TDAP/TD VACCINES (2 - T d or Tdap) 10/30/2028 10/30/2018 Pneumococcal Vaccine: 0-49 Years Aged Out No longer eligible based on patient's age to complete this topic Insurance BLUE CROSS/BLUE SHIELD Care Teams Cigarette Tipper Relationship Specialty Start Date End Date Stephanie Allen PA-C [address] [place] [id number] PCP - General 09/01/24
--- OUTSIDE RECORDS SUMMARY | 2025-04-08 12:09 | XMS_ITS | Encounter Summary ---
Author Organization Healthcare Address [address] [place] [address] Care Team Providers Care Bankruptcy Manager Name Role Phone None, None Primary Care Provider [phone] Stephanie Allen Primary Care Provider Encounter Details Date Type Department Care Team (Late st Contact Info) Description 10/12/2022 Outside Procedure External Location [address] [place] [address] James Cowart MD [address] [place] [address] Social History Tobacco Use Types Packs/Day Years Used Date Smoking Tobacco: Never Smokeless Tobacco: Current Alcohol Use Standard Drinks/Week Comments Never 0 (1 standard drink = 0.6 oz pur e alcohol) Comments No Sex and Gender Information Value Date Recorded Sex Assigned at Not on file Legal Sex Female 1:06 PM EST Gender Identity Not on file Sexual Orientation Not on file COVID-19 Exposure Response Date Recorded In the last 10 days, have yo u been in contact with someone who was confirmed or suspected to have Coronavirus/COVID-19? No / Unsure 10/10/2022 11:29 AM EST documented as of this encounter Plan of Treatment Not on file documented as of this encounter Procedures Procedure Name Priority Date/Time Associated Diagnosis Comments FL HYSTEROSALPINGOGRAM 6:57 AM EST documented in this encounter Results * FL Hysterosalpingogram (10/12/2022 6:57 AM EST) Anatomical Region Laterality Modality Body Radiographic Angelina ging 10/12/2022 6:57 AM EST Narrative 10/12/2022 8:21 [place] [address] Name: LETICIA PENNINGTON Exam Date: 10/12/2022 : 2000 Age 22 Gender: F Physician: JAMES COWART Facility: [facility] Facility HSV: Outpatient Exam: HYSTEROSALPINGOGRAM FLUOROSCOPY TIME CLINICAL HISTORY: HSG, history of ectopic FINDINGS: 5 fluoroscopic spot films were obtained for HSG. There is free spillage of contrast into the peritoneal cavity bilaterally. IMPRESSION: Free spillage noted bilaterally. FLUOROSCOPY TIME: 0.5 minutes The films were reviewed, interpreted, and dictated by Dr. Ana Lopez Transcribed by Colt Sands PA-C Dictated By: ANA LOPEZ Transcribed By: Ana Lopez Transcribed On: 10/12/2022 8:09 AM Electronically signed by: ANA LOPEZ 10/12/2022 Thank you for referring LETICIA PENNINGTON to [facility]. Legally authenticated by POPE ANA Baptiste 2022-10-12 08:09:41 Procedure Note Provider, Generic [place] - 10/12/2022 [place] [address] Name: LETICIA PENNINGTON Exam Date: 10/12/2022 : 2000 Age 22 Gender: F Physician: JAMES COWART Facility: [facility] Facility HSV: Outpatient Exam: HYSTEROSALPINGOGRAM FLUOROSCOPY TIME CLINICAL HISTORY: HSG, history of ectopic FINDINGS: 5 fluoroscopic spot films were obtained for HSG. There is free spillage of contrast into the peritoneal cavity bilaterally. IMPRESSION: Free spillage noted bilaterally. FLUOROSCOPY TIME: 0.5 minutes The films were reviewed, interpreted, and dictated by Dr. Ana Lopez Transcribed by Colt Sands PA-C Dictated By: ANA LOPEZ Transcribed By: Ana Lopez Transcribed On: 10/12/2022 8:09 AM Electronically signed by: ANA LOPEZ 10/12/2022 Thank you for referring LETICIA PENNINGTON to [facility]. Legally authenticated by POPE ANA Baptiste 2022-10-12 08:09:41 James Cowart MD IMG FLUOROSCOPY PROCEDURES Gayle l Result documented in this encounter Visit Diagnoses Not on filedocumented in this encounter Care Teams Bankruptcy Manager Relationship Specialty Start Date End Date None, None [address] [place] [address] PCP - General NONE FOUND 09/05/22 05/23/24 Stephanie Allen PA [address] [place] [address] PCP - General 08/30/24 documented as of this encounter
--- OUTSIDE RECORDS SUMMARY | 2025-04-08 12:09 | XMS_ITS | Data Portability ---
Author Organization [facility] & GERONIMO Harrell ADMIN Address [address] [place] [id number] Care Team Providers Care Automobile Body Repair Supervisor Name Role Phone UNRULY ROSEN Primary Care Provider TRAMAINE WINKLER Primary Care Provider Assessment No assessment recorded. Plan of Treatment Reminders Order Date Submit Date Provider Last Modified By Organization Details Last Modified Time Details Appointments None recorded. Lab CBC w/ auto diff 2022 023 [email or web address] 6 [facility], [address] [place], [address], 3 08:47:10 ferritin, serum or plasma 2022 023 [email or web address] 6 [facility], [address] [place], [address], 3 08:47:10 iron + total iron-bindin g capacity (TIBC), serum 2022 023 [email or web address] 6 [facility], [address] [place], [address], 3 08:47:10 CMP, serum or plasma 2022 023 [email or web address] 6 [facility], [address] [place], [address], 3 08:47:10 CBC w/ auto diff 2022 023 [facility], [address], [address], [place], [address], 3 07:14:24 vitamin D, 25-hydroxy, total, serum 2022 023 M[facility], [address], [address], [place], [address], 3 07:14:27 vitamin B12 + folate, serum or blood 2022 023 M[facility], [address], [address], [place], [address], 3 07:14:26 magnesium, serum or plasma 2022 023 [facility], [address], [address], [place], [address], 3 07:14:28 TSH + free T4, serum 2022 023 [facility], [address], [address], [place], [address], 3 07:14:23 CMP, serum or plasma 2022 023 [facility], [address], [address], [place], [address], 3 07:14:25 iron + TIBC + ferritin, serum 2022 023 [facility], [address], [address], [place], [address], 3 07:14:21 iron + TIBC + ferritin, serum 2022 023 [facility], [address], [address], [place], [address], 3 08:21:13 CBC w/ auto diff 2022 023 [facility], [address], [address], [place], [address], 3 08:21:13 CMP, serum or plasma 2022 023 [facility], [address], [address], [place], [address], 3 08:21:15 Referral behavioral health referral 2022 023 [email or web address] 3 [facility], [address] [facility], [address], [place], [address], 3 08:01:02 Procedures None recorded. Surgeries None recorded. Imaging None recorded. Medication Orders Vitamin D3 125 mcg (5,000 unit) tablet 2022 023 [facility], [facility] [address], [id number], 3 16:18:04 duloxetine 60 mg capsule,del ayed release 2022 023 [email or web address] 2 [facility], [address] [place] [address], [id number], 3 14:25:59 Wegovy 0.25 mg/0.5 mL subcutaneou s pen injector 2022 023 [email or web address] 9 [facility], [address] [place], [address], 3 08:44:47 Flonase Allergy Relief 50 mcg/actuati on nasal spray,suspe nsion 2022 023 [email or web address] 2 [facility], [address] [place], [address], 3 16:23:10 Zyrtec 10 mg tablet 2022 023 [email or web address] [id number] 9 [facility], [address] [place], [address], 3 08:44:34 Wellbutrin SR 150 mg tablet, 12 hr sustained-r elease 2022 023 [email or web address] [id number] 9 [facility], [address] [place], [address], 3 08:44:29 Seroquel 100 mg tablet 2022 023 [email or web address] [id number] 9 [facility], [address] [place], [address], 3 08:44:54 Patient TargetsNo targets recorded. Patient InstructionsNo instructions recorded. Reason for Referral Behavioral Health Referral f or Mixed anxiety and depressive disorder Referring Physician: Unruly Rosen, Infectious Disease, Encounter Date: 08/08/2023 Results Created Date Observation Date Name Description Value Unit Range Abnormal Flag Note LastModifiedBy Organization Detail LastModifiedTime 07/18/2007/19/2023 FE+TI BC+FE R iron bind.cap.(TI BC) 427 ug/dL 250-45 0 Not Available [facility] ([facility]) [address] [place], [address], 07/19/2023 08:21:12 07/18/2007/19/2023 FE+TI BC+FE R UIBC 396 ug/dL 131-42 5 Not Available [facility] ([facility]) [address] [place], [address], 07/19/2023 08:21:12 07/18/20 23 07/19/2023 FE+TI BC+FE R iron 31 ug/dL 27-159 Not Available [facility] ([facility]) [address] [place], [address], 07/19/2023 08:21:12 07/18/20 23 07/19/2023 FE+TI BC+FE R iron saturation 7 % 15-55 alert low Not Available [facility] ([facility]) [address] [place], [address], 07/19/2023 08:21:12 07/18/20 23 07/19/2023 FE+TI BC+FE R ferritin 61 NG/mL 15-150 Not Available [facility] ([facility]) [address] [place], [address], 07/19/2023 08:21:12 07/18/20 23 07/19/2023 CBC WITH DIFFE RENTI AL/PL ATELE T WBC 9.7 x10e3 /uL 3.4-10 .8 Not Available [facility] ([facility]) [address] [place], [address], 07/19/2023 08:21:13 07/18/20 23 07/19/2023 CBC WITH DIFFE RENTI AL/PL ATELE T RBC 4.95 x10e6 /uL 3.77-5 .28 Not Available [facility] ([facility]) [address] [place], [address], 07/19/2023 08:21:13 07/18/20 23 07/19/2023 CBC WITH DIFFE RENTI AL/PL ATELE T hemoglobin 13.1 g/dL 11.1-1 5.9 Not Available [facility] ([facility]) [address] [place], [address], 07/19/2023 08:21:13 07/18/20 23 07/19/2023 CBC WITH DIFFE RENTI AL/PL ATELE T hematocrit 40.6 % 34.0-4 6.6 Not Available [facility] ([facility]) [address] [place], [address], 07/19/2023 08:21:13 07/18/20 23 07/19/2023 CBC WITH DIFFE RENTI AL/PL ATELE T MCV 82 fL 79-97 Not Available [facility] ([facility]) [address], [place], [address], 07/19/2023 08:21:13 07/18/20 23 07/19/2023 CBC WITH DIFFE RENTI AL/PL ATELE T MCH 26.5 pg 26.6-3 3.0 below low normal Not Available [facility] ([facility]) [address], [place], [address], 07/19/2023 08:21:13 07/18/20 23 07/19/2023 CBC WITH DIFFE RENTI AL/PL ATELE T MCHC 32.3 g/dL 31.5-3 5.7 Not Available [facility] ([facility]) [address], [place], [address], 07/19/2023 08:21:13 07/18/20 23 07/19/2023 CBC WITH DIFFE RENTI AL/PL ATELE T RDW 13.1 % 11.7-1 5.4 Not Available [facility] ([facility]) [address], [place], [address], 07/19/2023 08:21:13 07/18/20 23 07/19/2023 CBC WITH DIFFE RENTI AL/PL ATELE T platelets 287 x10e3 /uL 150-45 0 Not Available [facility] ([facility]) [address], [place], [address], 07/19/2023 08:21:13 07/18/20 23 07/19/2023 CBC WITH DIFFE RENTI AL/PL ATELE T neutrophils 65 % not estab. Not Available [facility] ([facility]) [address], [place], [address], 07/19/2023 08:21:13 07/18/20 23 07/19/2023 CBC WITH DIFFE RENTI AL/PL ATELE T lymphs 24 % not estab. Not Available [facility] ([facility]) [address] [place], [address], 07/19/2023 08:21:13 07/18/20 23 07/19/2023 CBC WITH DIFFE RENTI AL/PL ATELE T monocytes 7 % not estab. Not Available [facility] ([facility]) [address], [place], [address], 07/19/2023 08:21:13 07/18/20 23 07/19/2023 CBC WITH DIFFE RENTI AL/PL ATELE T eos 3 % not estab. Not Available [facility] ([facility]) [address], [place], [address], 07/19/2023 08:21:13 07/18/20 23 07/19/2023 CBC WITH DIFFE RENTI AL/PL ATELE T basos 0 % not estab. Not Available [facility] ([facility]) [address] [place], [address], 07/19/2023 08:21:13 07/18/20 23 07/19/2023 CBC WITH DIFFE RENTI AL/PL ATELE T immature cells PROFESSOR OF LAW Not Available [facility] ([facility]) [address] [place], [address], 07/19/2023 08:21:13 07/18/20 23 07/19/2023 CBC WITH DIFFE RENTI AL/PL ATELE T neutrophils (absolute) 6.4 x10e3 /uL 1.4-7. 0 Not Available [facility] ([facility]) [address] [place], [address], 07/19/2023 08:21:13 07/18/20 23 07/19/2023 CBC WITH DIFFE RENTI AL/PL ATELE T lymphs (absolute) 2.3 x10e3 /uL 0.7-3. 1 Not Available [facility] ([facility]) [address], [place], [address], 07/19/2023 08:21:13 07/18/20 23 07/19/2023 CBC WITH DIFFE RENTI AL/PL ATELE T monocytes(ab solute) 0.6 x10e3 /uL 0.1-0. 9 Not Available [facility] ([facility]) [address], [place], [address], 07/19/2023 08:21:13 07/18/20 23 07/19/2023 CBC WITH DIFFE RENTI AL/PL ATELE T eos (absolute) 0.3 x10e3 /uL 0.0-0. 4 Not Available [facility] ([facility]) [address], [place], [address], 07/19/2023 08:21:13 07/18/20 23 07/19/2023 CBC WITH DIFFE RENTI AL/PL ATELE T baso (absolute) 0.0 x10e3 /uL 0.0-0. 2 Not Available [facility] ([facility]) [address], [place], [address], 07/19/2023 08:21:13 07/18/20 23 07/19/2023 CBC WITH DIFFE RENTI AL/PL ATELE T immature granulocytes 1 % not estab. Not Available [facility] ([facility]) [address], [place], [address], 07/19/2023 08:21:13 07/18/20 23 07/19/2023 CBC WITH DIFFE RENTI AL/PL ATELE T immature grans (abs) 0.1 x10e3 /uL 0.0-0. 1 Not Available [facility] ([facility]) [address], [place], [address], 07/19/2023 08:21:13 07/18/20 23 07/19/2023 CBC WITH DIFFE RENTI AL/PL ATELE T NRBC PROFESSOR OF [employer] Not Available [facility] ([facility]) [address], [place], [address], 07/19/2023 08:21:13 07/18/20 23 07/19/2023 CBC WITH DIFFE RENTI AL/PL ATELE T hematology comments: PROFESSOR OF LAW Not Available [facility] ([facility]) [address], [place], [address], 07/19/2023 08:21:13 07/18/20 23 07/19/2023 COMP. METAB OLIC PANEL (14) glucose 93 mg/dL 70-99 Not Available [facility] ([facility]) [address], [place], [address], 07/19/2023 08:21:15 07/18/20 23 07/19/2023 COMP. METAB OLIC PANEL (14) BUN 14 mg/dL 6-20 Not Available [facility] ([facility]) [address], [place], [address], 07/19/2023 08:21:15 07/18/20 23 07/19/2023 COMP. METAB OLIC PANEL (14) creatinine 0.77 mg/dL 0.57-1 .00 Not Available [facility] ([facility]) [address], [place], [address], 07/19/2023 08:21:15 07/18/20 23 07/19/2023 COMP. METAB OLIC PANEL (14) eGFR 110 mL/mi n/1.7 3 >59 Not Available [facility] ([facility]) [address] [place], [address], 07/19/2023 08:21:15 07/18/20 23 07/19/2023 COMP. METAB OLIC PANEL (14) BUN/creatini ne ratio 18 9-23 Not Available [facility] ([facility]) [address] [place], [address], 07/19/2023 08:21:15 07/18/20 23 07/19/2023 COMP. METAB OLIC PANEL (14) sodium 141 mmol/ L 134-14 4 Not Available [facility] ([facility]) [address] [place], [address], 07/19/2023 08:21:15 07/18/20 23 07/19/2023 COMP. METAB OLIC PANEL (14) potassium 4.1 mmol/ L 3.5-5. 2 Not Available [facility] ([facility]) [address] [place], [address], 07/19/2023 08:21:15 07/18/20 23 07/19/2023 COMP. METAB OLIC PANEL (14) chloride 104 mmol/ L 96-106 Not Available [facility] ([facility]) [address] [place], [address], 07/19/2023 08:21:15 07/18/20 23 07/19/2023 COMP. METAB OLIC PANEL (14) carbon dioxide, total 21 mmol/ L 20-29 Not Available [facility] ([facility]) [address] [place], [address], 07/19/2023 08:21:15 07/18/20 23 07/19/2023 COMP. METAB OLIC PANEL (14) calcium 9.4 mg/dL 8.7-10 .2 Not Available [facility] ([facility]) [address] [place], [address], 07/19/2023 08:21:15 07/18/20 23 07/19/2023 COMP. METAB OLIC PANEL (14) protein, total 7.2 g/dL 6.0-8. 5 Not Available [facility] ([facility]) [address] [place], [address], 07/19/2023 08:21:15 07/18/20 23 07/19/2023 COMP. METAB OLIC PANEL (14) albumin 4.3 g/dL 4.0-5. 0 Not Available [facility] ([facility]) [address], [place], [address], 07/19/2023 08:21:15 07/18/20 23 07/19/2023 COMP. METAB OLIC PANEL (14) globulin, total 2.9 g/dL 1.5-4. 5 Not Available [facility] ([facility]) [address], [place], [address], 07/19/2023 08:21:15 07/18/20 23 07/19/2023 COMP. METAB OLIC PANEL (14) A/G ratio 1.5 1.2-2. 2 Not Available [facility] ([facility]) [address], [place], [address], 07/19/2023 08:21:15 07/18/20 23 07/19/2023 COMP. METAB OLIC PANEL (14) bilirubin, total 0.2 mg/dL 0.0-1. 2 Not Available [facility] ([facility]) [address], [place], [address], 07/19/2023 08:21:15 07/18/20 23 07/19/2023 COMP. METAB OLIC PANEL (14) alkaline phosphatase 80 IU/L 44-121 Not Available [facility] ([facility]) [address], [place], [address], 07/19/2023 08:21:15 07/18/20 23 07/19/2023 COMP. METAB OLIC PANEL (14) AST (SGOT) 14 IU/L 0-40 Not Available [facility] ([facility]) [address] [place], [address], 07/19/2023 08:21:15 09/19/07/19/2023 COMP. METAB OLIC PANEL (14) ALT (SGPT) 10 IU/L 0-32 Not Available [facility] ([facility]) [address] [place], [address], 07/19/2023 08:21:15 08/08/2008/09/2023 FE+TI BC+FE R iron bind.cap.(TI BC) 369 ug/dL 250-45 0 Not Available [facility] ([facility]) [address] [place], [address], 08/09/2023 07:14:21 08/08/2008/09/2023 FE+TI BC+FE R UIBC 334 ug/dL 131-42 5 Not Available [facility] ([facility]) [address] [place], [address], 08/09/2023 07:14:21 08/08/2008/09/2023 FE+TI BC+FE R iron 35 ug/dL 27-159 Not Available [facility] ([facility]) [address] [place], [address], 08/09/2023 07:14:21 08/08/2008/09/2023 FE+TI BC+FE R iron saturation 9 % 15-55 alert low Not Available [facility] ([facility]) [address] [place], [address], 08/09/2023 07:14:21 08/08/2008/09/2023 FE+TI BC+FE R ferritin 53 NG/mL 15-150 Not Available [facility] ([facility]) [address] [place], [address], 08/09/2023 07:14:21 08/08/2008/09/2023 TSH+F REE T4 TSH 0.925 uIU/m L 0.450- 4.500 Not Available [facility] ([facility]) [address] [place], [address], 08/09/2023 07:14:22 08/08/2008/09/2023 TSH+F REE T4 T4,free(dire ct) 0.96 NG/dL 0.82-1 .77 Not Available [facility] ([facility]) [address] [place], [address], 08/09/2023 07:14:22 08/08/2008/09/2023 CBC WITH DIFFE RENTI AL/PL ATELE T WBC 7.7 x10e3 /uL 3.4-10 .8 Not Available [facility] ([facility]) [address] [place], [address], 08/09/2023 07:14:24 08/08/2008/09/2023 CBC WITH DIFFE RENTI AL/PL ATELE T RBC 4.90 x10e6 /uL 3.77-5 .28 Not Available [facility] ([facility]) [address] [place], [address], 08/09/2023 07:14:24 08/08/2008/09/2023 CBC WITH DIFFE RENTI AL/PL ATELE T hemoglobin 13.2 g/dL 11.1-1 5.9 Not Available [facility] ([facility]) [address] [place], [address], 08/09/2023 07:14:24 08/08/2008/09/2023 CBC WITH DIFFE RENTI AL/PL ATELE T hematocrit 40.4 % 34.0-4 6.6 Not Available [facility] ([facility]) [address] [place], [address], 08/09/2023 07:14:24 08/08/2008/09/2023 CBC WITH DIFFE RENTI AL/PL ATELE T MCV 82 fL 79-97 Not Available [facility] ([facility]) [address] [place], [address], 08/09/2023 07:14:24 08/08/2008/09/2023 CBC WITH DIFFE RENTI AL/PL ATELE T MCH 26.9 pg 26.6-3 3.0 Not Available [facility] ([facility]) [address], [place], [address], 08/09/2023 07:14:24 08/08/2008/09/2023 CBC WITH DIFFE RENTI AL/PL ATELE T MCHC 32.7 g/dL 31.5-3 5.7 Not Available [facility] ([facility]) [address], [place], [address], 08/09/2023 07:14:24 08/08/2008/09/2023 CBC WITH DIFFE RENTI AL/PL ATELE T RDW 13.3 % 11.7-1 5.4 Not Available [facility] ([facility]) [address], [place], [address], 08/09/2023 07:14:24 08/08/2008/09/2023 CBC WITH DIFFE RENTI AL/PL ATELE T platelets 298 x10e3 /uL 150-45 0 Not Available [facility] ([facility]) [address] [place], [address], 08/09/2023 07:14:24 08/08/2008/09/2023 CBC WITH DIFFE RENTI AL/PL ATELE T neutrophils 68 % not estab. Not Available [facility] ([facility]) [address] [place], [address], 08/09/2023 07:14:24 08/08/2008/09/2023 CBC WITH DIFFE RENTI AL/PL ATELE T lymphs 23 % not estab. Not Available [facility] ([facility]) [address] [place], [address], 08/09/2023 07:14:24 08/08/20 23 08/09/2023 CBC WITH DIFFE RENTI AL/PL ATELE T monocytes 6 % not estab. Not Available [facility] ([facility]) [address], [place], [address], 08/09/2023 07:14:24 08/08/2008/09/2023 CBC WITH DIFFE RENTI AL/PL ATELE T eos 3 % not estab. Not Available [facility] ([facility]) [address], [place], [address], 08/09/2023 07:14:24 08/08/2008/09/2023 CBC WITH DIFFE RENTI AL/PL ATELE T basos 0 % not estab. Not Available [facility] ([facility]) [address], [place], [address], 08/09/2023 07:14:24 08/08/2008/09/2023 CBC WITH DIFFE RENTI AL/PL ATELE T immature cells PROFESSOR OF LAW Not Available [facility] ([facility]) [address], [place], [address], 08/09/2023 07:14:24 08/08/2008/09/2023 CBC WITH DIFFE RENTI AL/PL ATELE T neutrophils (absolute) 5.2 x10e3 /uL 1.4-7. 0 Not Available [facility] ([facility]) [address], [place], [address], 08/09/2023 07:14:24 08/08/2008/09/2023 CBC WITH DIFFE RENTI AL/PL ATELE T lymphs (absolute) 1.8 x10e3 /uL 0.7-3. 1 Not Available [facility] ([facility]) [address] [place], [address], 08/09/2023 07:14:24 08/08/20 23 08/09/2023 CBC WITH DIFFE RENTI AL/PL ATELE T monocytes(ab solute) 0.5 x10e3 /uL 0.1-0. 9 Not Available [facility] ([facility]) [address], [place], [address], 08/09/2023 07:14:24 08/08/2008/09/2023 CBC WITH DIFFE RENTI AL/PL ATELE T eos (absolute) 0.2 x10e3 /uL 0.0-0. 4 Not Available [facility] ([facility]) [address], [place], [address], 08/09/2023 07:14:24 08/08/2008/09/2023 CBC WITH DIFFE RENTI AL/PL ATELE T baso (absolute) 0.0 x10e3 /uL 0.0-0. 2 Not Available [facility] ([facility]) [address], [place], [address], 08/09/2023 07:14:24 08/08/2008/09/2023 CBC WITH DIFFE RENTI AL/PL ATELE T immature granulocytes 0 % not estab. Not Available [facility] ([facility]) [address], [place], [address], 08/09/2023 07:14:24 08/08/2008/09/2023 CBC WITH DIFFE RENTI AL/PL ATELE T immature grans (abs) 0.0 x10e3 /uL 0.0-0. 1 Not Available [facility] ([facility]) [address], [place], [address], 08/09/2023 07:14:24 08/08/2008/09/2023 CBC WITH DIFFE RENTI AL/PL ATELE T NRBC PROFESSOR OF LAW Not Available [facility] ([facility]) [address], [place], [address], 08/09/2023 07:14:24 08/08/20 23 08/09/2023 CBC WITH DIFFE RENTI AL/PL ATELE T hematology comments: PROFESSOR OF LAW Not Available [facility] ([facility]) [address], [place], [address], 08/09/2023 07:14:24 08/08/20 23 08/09/2023 COMP. METAB OLIC PANEL (14) glucose 99 mg/dL 70-99 Not Available [facility] ([facility]) [address], [place], [address], 08/09/2023 07:14:25 08/08/2008/09/2023 COMP. METAB OLIC PANEL (14) BUN 17 mg/dL 6-20 Not Available [facility] ([facility]) [address], [place], [address], 08/09/2023 07:14:25 08/08/20 23 08/09/2023 COMP. METAB OLIC PANEL (14) creatinine 0.83 mg/dL 0.57-1 .00 Not Available [facility] ([facility]) [address], [place], [address], 08/09/2023 07:14:25 08/08/20 23 08/09/2023 COMP. METAB OLIC PANEL (14) eGFR 100 mL/mi n/1.7 3 >59 Not Available [facility] ([facility]) [address], [place], [address], 08/09/2023 07:14:25 08/08/20 23 08/09/2023 COMP. METAB OLIC PANEL (14) BUN/creatini ne ratio 20 9-23 Not Available [facility] ([facility]) [address], [place], [address], 08/09/2023 07:14:25 08/08/20 23 08/09/2023 COMP. METAB OLIC PANEL (14) sodium 144 mmol/ L 134-14 4 Not Available [facility] ([facility]) [address], [place], [address], 08/09/2023 07:14:25 08/08/20 23 08/09/2023 COMP. METAB OLIC PANEL (14) potassium 4.4 mmol/ L 3.5-5. 2 Not Available [facility] ([facility]) [address], [place], [address], 08/09/2023 07:14:25 08/08/20 23 08/09/2023 COMP. METAB OLIC PANEL (14) chloride 105 mmol/ L 96-106 Not Available [facility] ([facility]) [address] [place], [address], 08/09/2023 07:14:25 08/08/20 23 08/09/2023 COMP. METAB OLIC PANEL (14) carbon dioxide, total 22 mmol/ L 20-29 Not Available [facility] ([facility]) [address], [place], [address], 08/09/2023 07:14:25 08/08/20 23 08/09/2023 COMP. METAB OLIC PANEL (14) calcium 9.2 mg/dL 8.7-10 .2 Not Available [facility] ([facility]) [address] [place], [address], 08/09/2023 07:14:25 08/08/20 23 08/09/2023 COMP. METAB OLIC PANEL (14) protein, total 6.9 g/dL 6.0-8. 5 Not Available [facility] ([facility]) [address] [place], [address], 08/09/2023 07:14:25 08/08/20 23 08/09/2023 COMP. METAB OLIC PANEL (14) albumin 4.3 g/dL 4.0-5. 0 Not Available [facility] ([facility]) [address] [place], [address], 08/09/2023 07:14:25 08/08/20 23 08/09/2023 COMP. METAB OLIC PANEL (14) globulin, total 2.6 g/dL 1.5-4. 5 Not Available [facility] ([facility]) [address], [place], [address], 08/09/2023 07:14:25 08/08/20 23 08/09/2023 COMP. METAB OLIC PANEL (14) A/G ratio 1.7 1.2-2. 2 Not Available [facility] ([facility]) [address], [place], [address], 08/09/2023 07:14:25 08/08/20 23 08/09/2023 COMP. METAB OLIC PANEL (14) bilirubin, total <0.2 mg/dL 0.0-1. 2 Not Available [facility] ([facility]) [address], [place], [address], 08/09/2023 07:14:25 08/08/20 23 08/09/2023 COMP. METAB OLIC PANEL (14) alkaline phosphatase 80 IU/L 44-121 Not Available [facility] ([facility]) [address], [place], [address], 08/09/2023 07:14:25 08/08/20 23 08/09/2023 COMP. METAB OLIC PANEL (14) AST (SGOT) 13 IU/L 0-40 Not Available [facility] ([facility]) [address], [place], [address], 08/09/2023 07:14:25 08/08/20 23 08/09/2023 COMP. METAB OLIC PANEL (14) ALT (SGPT) 14 IU/L 0-32 Not Available [facility] ([facility]) [address], [place], [address], 08/09/2023 07:14:25 08/08/20 23 08/09/2023 VITAM IN B12 AND FOLAT E vitamin B12 437 pg/mL 232-12 45 Not Available [facility] ([facility]) [address], [place], [address], 08/09/2023 07:14:26 08/08/20 23 08/09/2023 VITAM IN B12 AND FOLAT E folate (folic acid), serum 13.0 NG/mL >3.0 A serum folat e sandra ntrat ion of less than 3.1 ng/mL is consi dered to repre sent clini gisell defic iency . Not Available [facility] ([facility]) [address], [place], [address], 08/09/2023 07:14:26 08/08/20 23 08/09/2023 VITAM IN D, 25-HY DROXY vitamin D, 25-hydroxy 22.4 NG/mL 30.0-1 00.0 below low normal Vitam in D defic iency has been defin ed by the [facility] and an [facility]oc rine [facility] ty pract ice guide line as a level of serum 25-OH vitam in D less than 20 ng/mL (1,2) . The [facility] rine Socie ty went on to furth er defin e vitam in D insuf ficie ncy as a level betwe en 21 and 29 ng/mL (2). 1. IOM (Inst it[employer] of Medic ine). 2010. Dieta ry refer ence intak es for calci um and D. Alicia avalos [place]: [facility] [facility] . 2. Aiden rivera MF, Farrah dixon [place], Hillary off-F errar i NUÑEZ, et al. Evalu ation , treat ment, and preve ntion of vitam in D defic iency : an Endoc rine Socie ty clini gisell pract ice guide line. JCEM. 2010; 96(7) :1911 -30. Not Available [facility] ([facility]) [address], [place], [address], 08/09/2023 07:14:27 08/08/2008/09/2023 MAGNE SIUM magnesium 1.9 mg/dL 1.6-2. 3 Not Available [facility] ([facility]) [address], [place], [address], 08/09/2023 07:14:28 05/26/20 23 05/26/2023 PAP nap (PROC ) No observ ation record ed. [email or web address] Not Available 2022 09:46:47 Result Notes None recorded. Procedures Surgical History Date Name Laterality Status Provider Name and Address Organization Details Recorded Time 03/18/2020 Date of Last Pap Smear completed MARGARETDUSTIN MELTON [facility] [place] 04/05/2023 13:05:37 10/30/2011 Tonsillecto my/Adenoide ctomy completed [facility] JONES MELTON [facility] [place] 04/05/2023 13:05:37 Imaging Results None recorded. Procedure Notes None recorded. Medical Equipment None Reported. Allergies No known drug allergies Medications Name Sig Start Date Stop Date Status Note LastModified by Organization Details LastModified Time Prescriptio n - Prior Authorizati on Request 08/23 completed Not Available Not Available Not Available bupropion HCl SR 150 mg tablet,12 hr sustained-r elease Take 1 tablet every day by oral route as directed for 90 days. 08/23 completed Not Available Not Available Not Available Ferrlecit 62.5 mg/5 mL intravenous solution IV infusion 2022 active Not Available Not Available Not Avai lable cetirizine 10 mg tablet Take 1 tablet every day by oral route as directed for 30 days. 08/23 completed Not Available Not Available Not Available hydrocodone 5 mg-acetamin ophen 325 mg tablet TAKE ONE TABLET BY MOUTH EVERY 6 HOURS NEEDED FOR PAIN FOR 5 DAYS 04/02 completed Not Available Not Available Not Available ondansetron HCl 8 mg tablet DISSOLVE 1 TABLET ON TONGUE AND SWALLOW EVERY TWELVE HOURS NEEDED FOR NAUSEA 04/02 completed Not Available Not Available Not Available cyanocobala min (vit B-12) 1,000 mcg tablet Take 1 tablet every day by oral route as directed for 90 days. 06/01 completed Not Available Not Available Not Available penicillin V potassium 500 mg tablet active Not Available Not Available Not Available quetiapine 100 mg tablet Take 1 tablet every day by oral route at bedtime for 90 days. 08/23 completed Not Available Not Available Not Available amitriptyli ne 25 mg tablet active Not Available Not Available Not Available benzonatate 100 mg capsule active Not Available Not Available Not Available ferrous sulfate 325 mg (65 mg iron) tablet Take 1 tablet every other day by oral route as directed for 90 days. active Not Available Not Available No t Available promethazin e 25 mg tablet TAKE ONE TABLET BY MOUTH EVERY 6 HOURS NEEDED FOR NAUSEA AND VOMITING FOR 7 DAYS 04/02 completed Not Available Not Available Not Available bromphenira mine-pseudo ephedrine-D M 2 mg-30 mg-10 mg/5 mL oral syrup Take 10 mL every 6-8 hours by oral route as needed for 5 days. 08/23 completed Not Available Not Available Not Available ondansetron 4 mg disintegrat ing tablet active Not Available Not Available N ot Available fluoxetine 20 mg capsule Take 1 capsule every day by oral route as directed for 90 days. 06/01 completed Not Available Not Available Not Available fluticasone propionate 50 mcg/actuati on nasal spray,suspe nsion [place] 1 spray every day by intranasa l route as directed for 30 days. active Not Available Not Available No t Available cholecalcif amnuela (vitamin D3) 125 mcg (5,000 unit) capsule active Not Available Not Available Not Available bupropion HCl XL 150 mg 24 hr tablet, extended release active Not Available Not Available Not Available duloxetine 60 mg capsule,del ayed release Take 1 capsule every day by oral route as directed for 30 days. active Not Available Not Available No t Available Feraheme 510 mg/17 mL (30 mg/mL) intravenous solution active Not Available Not Available Not Available Vitamin D3 125 mcg (5,000 unit) tablet Take 1 tablet every day by oral route as directed for 90 days. 2022 active Not Available Not Available Not Avai lable Zafemy 150 mcg-35 mcg/24 hr transdermal patch active Not Available Not Available Not Available Wegovy 0.25 mg/0.5 mL subcutaneou s pen injector Inject by subcutane ous route for 28 days. 08/23 completed Not Available Not Available Not Available Vitals Date Recorded Body height Body mass index (BMI) Body weight Body temperature Oxygen saturation Oxygen saturation in Arterial blood by Pulse oximetry Heart rate Systolic blood pressure Diastolic blood pressure Provider Name and Address Organization Details Last Updated DateTime 3 157.48 cm 50.1 kg/m2 711714. 31 g 97.7 [degF] 98 % 98 % 105 /min 92 mm[Hg] 66 mm[Hg] MARGARET JONES MULTANI - LPNT [facility] [place] 3 14:59:03 Date Recorded Body height Body mass index (BMI) Body weight Body temperature Oxygen saturation Oxygen saturation in Arterial blood by Pulse oximetry Heart rate Systolic blood pressure Diastolic blood pressure Provider Name and Address Organization Details Last Updated DateTime 3 157.48 cm 47.6 kg/m2 413562. 42 g 98.2 [degF] 99 % 99 % 103 /min 124 mm[Hg] 86 mm[Hg] MARGARET JONES MULTANI - LPNT [facility] [place] 3 15:58:53 Date Recorded Body height Body weight Body mass index (BMI) Body temperature Oxygen saturation Oxygen saturation in Arterial blood by Pulse oximetry Heart rate Systolic blood pressure Diastolic blood pressure Provider Name and Address Organization Details Last Updated DateTime 3 157.48 cm 279998. 72 g 49.9 kg/m2 97.7 [degF] 100 % 100 % 128 /min 100 mm[Hg] 76 mm[Hg] MARGARETBart MULTANI - LUANANT [facility] [place] 3 10:09:53 Date Recorded Body height Body mass index (BMI) Body weight Body temperature Oxygen saturation Oxygen saturation in Arterial blood by Pulse oximetry Heart rate Systolic blood pressure Diastolic blood pressure Provider Name and Address Organization Details Last Updated DateTime 3 157.48 cm 51.9 kg/m2 869314. 87 g 98 [degF] 98 % 98 % 91 /min 127 mm[Hg] 74 mm[Hg] Agnes Khalil LPNT [facility] [place] 3 08:43:53 Date Recorded Body height Body mass index (BMI) Body weight Body temperature Oxygen saturation Oxygen saturation in Arterial blood by Pulse oximetry Heart rate Systolic blood pressure Diastolic blood pressure Provider Name and Address Organization Details Last Updated DateTime 3 157.48 cm 51 kg/m2 054895. 27 g 97.5 [degF] 99 % 99 % 129 /min 124 mm[Hg] 90 mm[Hg] Dheeraj Khalil LPR [facility] [place] 3 15:59:39 Social History Question Answer Notes LastModified by [facility] Details LastModified Time Tobacco Smoking Status Former Smoker MARGARET hassan, NERISSA MELTON [facility] [place] 04/05/2023 13:05:37 Do You Have An Advance Directive? No Information not available 04/05/2023 Are You Blind Or Do You Have Difficulty Seeing? No Information not available 04/05/2023 What Was The Date Of Your Most Recent Tobacco Screening? 04/02/2023 Information not available 04/05/2023 Are You Passively Exposed To Smoke? No Information not available 04/05/2023 How Much Tobacco Do You Smoke? No Information not available 04/05/2023 How Many Years Have You Smoked Tobacco? 2 Information not available 04/05/2023 Sex: Female Functional Status Question Answer Note LastModified by [employer] Details LastModified Time Do you use any illicit or recreational drugs? Yes Information not available 04/05/2023 Do you or have you ever used any other forms of tobacco or nicotine? Yes [email or web address] Information not available 06/02/2023 What is your level of alcohol consumption? Occasional Information not available 04/05/2023 Do you or have you ever used smokeless tobacco? 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 Current user of electronic cigarettes [email or web address] Information not available 06/02/2023 What is your exercise level? Moderate Information not available 04/05/2023 Mental Status Question Answer Note LastModified by Organization D etails LastModified Time Do you feel stressed (tense, restless, nervous, or anxious, or unable to sleep at night)? [id number] Information not available 04/05/2023 Family History Relationship Description Onset Age of this Age Resolved Age Notes LastModified by Organization Details LastModified Time Mother Allergy pt. added direct ly (04/02) API-13 Not available 04/02/2023 16:47:00 Mother Hypercholest erolemia pt. added direct ly (04/02) API-13 Not available 04/02/2023 16:47:14 Mother Hypertensive disorder pt. added direct ly (04/02) API-13 Not available 04/02/2023 16:47:30 Mother Obesity pt. added direct ly (04/02) API-13 Not available 04/02/2023 16:47:41 Mother Mental health problem pt. added direct ly (04/02) API-13 Not available 04/02/2023 16:49:31 Father Disorder of endocrine system pt. added direct ly (04/02) API-13 Not available 04/02/2023 16:48:34 Father Hypertensive disorder pt. added direct ly (04/02) API-13 Not available 04/02/2023 16:48:41 Father Kidney disease pt. added direct ly (04/02) API-13 Not available 04/02/2023 16:49:01 Father Liver problem pt. added direct ly (04/02) API-13 Not available 04/02/2023 16:49:19 Father Obesity pt. added direct ly (04/02) API-13 Not available 04/02/2023 16:50:07 Father Substance abuse pt. added direct ly (04/02) API-13 Not available 04/02/2023 16:50:18 Sister Hypercholest erolemia pt. added direct ly (04/02) API-13 Not available 04/02/2023 16:48:53 Sister Mental health problem pt. added direct ly (04/02) API-13 Not available 04/02/2023 16:49:31 Sister Obesity pt. added direct ly (04/02) API-13 Not available 04/02/2023 16:50:07 Sister Disorder of thyroid gland pt. added direct ly (04/02) API-13 Not available 04/02/2023 16:50:27 Sister Anemia pt. added direct ly (04/02) API-13 Not available 04/02/2023 16:50:34 Maternal Grandfather Heart disease pt. added direct ly (04/02) API-13 Not available 04/02/2023 16:49:10 Brother Mental health problem pt. added direct ly (04/02) API-13 Not available 04/02/2023 16:49:31 Brother Obesity pt. added direct ly (04/02) API-13 Not available 04/02/2023 16:50:07 Maternal Grandmother Chronic obstructive pulmonary disease pt. added direct ly (04/02) API-13 Not available 04/02/2023 16:50:39 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 Condition Response Anxiety Disorder Y Obesity Y Depression Y Gynecological History Statement/Question Response Abnormal Pap N Flow Moderate Date of LMP 03/16/2023 Sexually Active? Y Menses Monthly Y Duration of Flow (days) 3-4 Date of Last Pap Smear 03/18/2020 Current Control Method None Obstetrics History GPAL:G 0 P 0 0 0 0 Past Encounters Encounter ID Performer Location Encounter Start Date Encounter Closed Date Diagnosis/Indication Diagnosis SNOMED-CT Code Diagnosis ICD10 Code Diagnosis Note [id number] Unruly Bustillo in, [employer] [facility] [address] [place] [address] 04/05/2023 13:02:12 04/05/2023 13:39:51 Adult health examination 869034847 Z00.00 Will check complete bloodwork. Will call with results.Co unseled on dietary modificati ons and healthy eating habits.Cou nseled on decreasing stress levels,Rec ommend yearly eye examsRecom mend regular dental exams/ashely rnings. Thyroid di sorder screening 499063574 Z13.29 Mixed anxi ety and depressive disorder 545470704 F41.8 Screening for malignant neoplasm of cervix 076877112 Z12.[address] James Cowart. History of ectopic pregnancie s. She is up to date on preventati ve screenings . Excessive daytime sleepiness with sleep paralysis 346569078 G47.53 Patient has a history of sleep paralysis. History of snoring. History of restless sleep patterns. Body mass index 40+ - severely obese 961789575 Z68.43 Patient is exercising . Patient is attempting to make dietary modificati ons. [id number] Unruly Bustillo [address] [place] [address] 04/06/2023 08:02:02 04/06/2023 08:41:28 [id number] Tramaine Winkler MD [address] [place] [address] 04/26/2023 12:57:14 04/26/2023 13:15:14 Obstructive sleep apnea syndrome 01567016 G47.33 papnap...t itration to autopap 6-20 cm H2O. Obesity 022985106 E66.9 Patient aware that weight loss will improve not eliminate her need for auto PAP. [id number] Unruly Bustillo [address] [place] [address] 06/02/2023 14:51:05 06/02/2023 15:15:39 Mixed anxiety and depressive disorder 730104719 F41.8 Patient is tolerating medication . Will refill.Danny varner see back in 1 month.Will check vitamin levels, CBC, CMP, and iron panel at that time. [id number] Unruly Bustillo [address] [place] [address] 07/18/2023 15:54:45 07/18/2023 16:18:02 Viral upper respiratory tract infection 388738676 J06.9 Humidifier at night.Use medication as directed.O TC meds for cough.Foll ow up if no improvemen t. Iron defic iency anemia 04563131 D50.9 Patient finished her Iron supplement s.Will check levels today. Will call with results. Body mass index 30+ - obesity 009224280 Z68.42 Will start Wegovy.Danny l see back in 1 month for weight check.Will increase as tolerated. [id number] Unruly Bustillo [address] [place] [address] 08/08/2023 09:58:51 08/08/2023 11:08:21 Tremor 75819488 R25.1 Will check lab work. Will call with results. Iron defic iency anemia 04618115 D50.9 Mixed anxi ety and depressive disorder 549205672 F41.8 Patient is reacting to the medication . Positive for tremors in clinic today.Has been titrating the seroquel this week per my request.Wi ll stop Wellbutrin and Seroquel today and start Cymbalta tomorrow.W ill see back in 2 weeks.Coun seled in depth on symptoms of concern and when to go to ER. at chairside. Counseled on concerns and behavior changes and when to reach out for help. Support system is intact at home.Will do genetic testing at patient request today. [id number] Unruly Bustillo [address] [place] [address] 08/23/2023 15:37:17 08/23/2023 16:37:13 Mixed anxiety and depressive disorder 308670722 F41.8 Counseled in depth on symptoms of concern and when to go to ER. at chairside. Counseled on concerns and behavior changes and when to reach out for help. Support system is intact at home.Jose Luis knight on genetic testing results.Se e patient back in 1 month.Catrina ent is tolerating the Duloxetine 60mg. Vitamin D deficiency 347 31015 E55.9 [id number] Aden Petty MD [facility] [address] [facility] [address] [address] [place] [address] 08/23/2023 08:31:40 08/23/2023 09:08:39 Iron deficiency anemia 99706069 D50.9 Labs on August 08, 2023 with magnesium at 1.9. Vitamin-D level low at 22.4. B12 437. Folic acid 13. Normal liver function testing. Normal renal function. Normal electrolyt es. White blood cell count 7.7. Red blood cell count 4.90 hemoglobin 13.2 and hematocrit 40.4. MCV 82. Platelet count 225159. Normal cell differenti al. TSH 0.9. T4 0.96. Serum iron is at 35 and serum ferritin 53. Iron saturation 9%. Patient presents for evaluation August 23, 2023.Edwige nt recently seen in the emergency room for complaint of headache and mild dizziness. Patient reports some blurry vision as well as nystagmus of her eyes reported by her . Concern for possible migraine headache. Labs with overall improvemen t in serum iron studies. Iron deficiency could be cause recent headache however patient has a strong family history of migraine headaches. Symptoms sound suspicious for potential migraine. Discussion taking p.o. iron supplement ation twice daily and repeating labs in another 4-6 weeks. If patient having difficulty with oral iron therapy or not improving would recommend infusional iron therapy. Discussed occasional ly infusional iron therapy cause headache or potential migraine exacerbati on. Will follow-up response to increasing PO supplement ation. Headache 62829106 R51.9 Concern for possible migraine. Will follow-up if any worsening with p.o. iron supplement ation. Health Concerns Section Related Observation LastModified by Organization Detai ls LastModified Time None Recorded Concern Status LastModified by Organization Details LastModified Time None Recorded Advance Directives Directive N: Payers Insurance Date Sequence Insurance Name Policy Number Policy Palacios Covered Member ID Palacios Member ID Guarantor Name 10/01/2023 1 [place] [id number] Bart Wilkins [id number] Leticia Vo Notes Date Note Type Note Provider Name and Address Organization Details Recorded Time 06/02/2023 text/html patient presents to clinic for medication update. She was placed inpatient at [facility] and was treated by Dr. Rankin. She states her prozac was causing hallucinations. She was started on seroquel and wellbutrin. She is tolerating well. She states she feels so much better. She does not have a follow up scheduled with Dr. Rankin. Unruly Rosen, [employer] [address], [place], [address], [facility] [place] 06/02/2023 15:11:10 07/18/2023 text/html patient presents to clinic for follow up. She states she is tolerating her medication. No complaints. She reports some increased sinus drainage and her left ear is itchy. Denies any fever. Reports a dry cough. Denies any sore throat. Unruly Rosen APRN [address], [place], [address], [facility] [place] 07/18/2023 16:25:02 08/08/2023 text/html patient presents to clinic for an intermittent tremor. She has been titrating the Seroquel over the last week since we spoke. She denies any syncopal episodes. Denies any chest pain. Denies any thoughts of self harm or homicidal thoughts. Denies any hallucinations today. Unruly Rosen APRN [address], [place], [address], [facility] [place] 08/08/2023 14:26:50 08/23/2023 text/html patient presents to clinic for follow up. She is tolerating the Duloxetine. She denies suicidal or homicidal thoughts. She states that the tremor is completely gone. She states she sees hematology October 04. Unruly Rosen APRN [address], [place], [address], [facility] [place] 08/23/2023 16:18:32 08/23/2023 text/html 23 yo F presents for evaluation of iron deficiency anemia. Patient recently seen by primary care provider for follow-up and had labs performed. Patient has history of iron deficiency anemia and has previously been on ferrous sulfate. Labs on August 08, 2023 with magnesium at 1.9. Vitamin-D level low at 22.4. B12 437. Folic acid 13. Normal liver function testing. Normal renal function. Normal electrolytes. White blood cell count 7.7. Red blood cell count 4.90 hemoglobin 13.2 and hematocrit 40.4. MCV 82. Platelet count 020019. Normal cell differential. TSH 0.9. T4 0.96. Serum iron is at 35 and serum ferritin 53. Iron saturation 9%. Patient presents for evaluation August 23, 2023.Patient recently seen in the emergency room for complaint of headache and mild dizziness. Patient reports some blurry vision as well as nystagmus of her eyes reported by her . Concern for possible migraine headache. Labs with overall improvement in serum iron studies. Iron deficiency could be cause recent headache however patient has a strong family history of migraine headaches. Symptoms sound suspicious for potential migraine. Discussion taking p.o. iron supplementation twice daily and repeating labs in another 4-6 weeks. If patient having difficulty with oral iron therapy or not improving would recommend infusional iron therapy. Discussed occasionally infusional iron therapy cause headache or potential migraine exacerbation. Will follow-up response to increasing PO supplementation. Aden Petty MD [address], [place], [address], [facility] [place] [facility] [place] 08/23/2023 09:44:31 OBGyn Episode No OBEpisode recorded.
--- OUTSIDE RECORDS SUMMARY | 2025-04-08 12:10 | XMS_ITS | Clinical Summary ---
Author Organization [facility] Address [address] [place] [address] Care Team Providers Care Engineering Operations Leader Name Role Phone Stephanie Allen Primary Care Provider Allergies Active Allergy Reactions Criticality Noted Date Comments Propranolol Rash Low 04/11/2024 Medications buPROPion XL (Wellbutrin XL) 150 MG 24 hr tablet Take 1 tablet (150 mg) by mouth 1 (one) time each day. 12/14/2023 Active dilTIAZem XR (Dilacor XR) 120 MG 24 hr capsule Take 1 capsule (120 mg) by mouth 1 (one) time each day. 04/11/2024 Active fluticasone (Flonase) 50 MCG/ACT nasal spray 08/29/2024 Active promethazine (Phenergan) 25 MG tablet Take 1 tablet (25 mg) by mouth every 6 (six) hours if needed for nausea or vomiting. 30 tablet 3 10/16/2024 Active Vit-Fe Fumarate-FA ( VITAMINS PO) Take by mouth. Active Encounters Date Type Department Care Team Description 02/21/2025 Telephone Obstetrics & Gynecology [address] [place] [address] James Cowart MD 01/29/2025 Telephone Obstetrics & Gynecology [address] [place] [address] James Cowart MD 01/22/2025 9:15 AM EDT Clinical Support Obstetrics & Gynecology [address] [place] [address] 21 weeks gestation of 01/22/2025 8:00 AM EDT Routine Obstetrics & Gynecology [address] [place] [address] James Cowart MD 21 weeks gestation of (Primary Dx); Cervical shortening in second trimester 01/22/2025 8:00 AM EDT - 01/22/2025 11:59 PM EDT Hospital Encounter [facility] Elaina OBALISHA Ultrasound [address] [place] [address] 13 weeks gestation of Discharge Disposition: Home or Self Care 01/22/2025 Travel from Last 3 Months Family History 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 Relation Name Comments Alcohol abuse Father Rosie Vo Cancer Father Rosie Vo Diabetes Father Earsedson Vo Kidney cancer Father Rosie Vo Obesity Father Rosie Vo Cancer Maternal Grandfather Jones Fischer Hearing loss Maternal Grandfather Jones Fischer Heart disease Maternal Grandfather Jones Fischer COPD Maternal Grandmother Esme Fischer Heart disease Maternal Grandmother Esme Fischer Miscarriages / Stillbirths Maternal Grandmother Mary Jane Fischer Heart disease Mother Debi Vo Obesity Mother Debi Vo Aneurysm Paternal Grandmother Heart disease Paternal Grandmother Hearing loss Sister Thyroid disease Sister Relation Name Status Comments Father Rosie Vo Maternal Grandfather Jones Fischer Maternal Grandmother Esme Fischer Mother Debi Vo Paternal Grandmother Sister Social History Tobacco Use Types Packs/Day Years Used Date Smoking Tobacco: Former Smokeless Tobacco: Never Tobacco Cessation:Counseling Given: Not [...] Sign Reading Time Taken Comments Blood Pressure 83/57 01/22/2025 9:02 AM EDT Pulse 93 01/22/2025 9:02 AM EDT Temperature 36.9 C (98.4 F) 01/22/2025 9:02 AM EDT Respiratory Rate 16 01/03/2025 8:47 AM EST Oxygen Saturation 95% 01/22/2025 9:02 AM EDT Inhaled Oxygen Concentration - - Weight 135 kg (298 lb 11.6 oz) 01/22/2025 9:02 A M EDT Height 157.5 cm (5' 2 ) 01/03/2025 8:47 AM EST Body Mass Index 54.64 01/03/2025 8:47 AM EST Plan of Treatment Health Maintenance Due Date Last Done Comments [facility]-/Child/Adol SDOH Screenings 1998 [facility]-Varicella Vaccines (1 of 2 - 13+ 2-dose series) 2011 [facility]- SDOH Screenings 2016 [facility]-Adult SDOH Screenings 2016 [facility]-Hepatitis B Vaccines (1 of 3 - 19+ 3-dose series) 2017 [facility]-Pap Smear 2019 INC-HTIJV-90 Vaccine ( - season) 2024 [facility]-Influenza Vaccine (Season Ended) 2025 09/15/2020, 08/31/2010, 08/22/2007 [facility]-Depression Screening 01/22/2026 01/22/2025, 04/2025 [facility]-DTaP,Tdap,and Td Vaccines (2 - Td or Tdap) 10/30/2028 10/30/2018 [facility]-Zoster Vaccines (1 of 2) 2048 [facility]-Hepatitis A Vaccines Aged Out 05/17/2018 No longer eligible based on patient's age to complete this topic HPV Vaccines Completed 12/14/2023, 10/31, 08/08/2007 [facility]-HIV Screening Completed 11/01/2024 [facility]-Hepatitis C Screening Completed 11/01/2024 [facility]-Obesity Intervention Completed 025, 01/22/2025, 01/03/2025, Additional history exists [facility]-HIB Vaccines Aged Out No longer e ligible based on patient's age to complete this topic [facility]-IPV Vaccines Aged Out No longer e ligible based on patient's age to complete this topic [facility]-Pneumococcal Vaccine: Pediatrics (0 to 5 Years) and At-Risk Patients (6 to 49 Years) Aged Out No longer eligible based on patient's age to complete this topic [facility]-RSV Vaccine: 60+ Years or (No Doses Required) Completed [facility]-Rotavirus Vaccines Aged Out No lo nger eligible based on patient's age to complete this topic Goals Goal Patient Goal Type Associated Problems Recent Progress Patient-Stated? Author Delayed Care Plan CPM S24 PP LABOR (OBSTETRICS) No Open Scheduling, Background Procedures Procedure Name Priority Date/Time Associated Diagnosis Comments TSH Routine 01/22/2025 9:20 AM EDT 21 weeks gestation of CBC WITH AUTO DIFFERENTIAL Routine 01/22/2025 9:20 AM EDT 21 weeks gestation of TYPE AND SCREEN Routine 01/22/2025 9:20 AM EDT 21 weeks gestation of OB US 14+ WEEKS ANATOMY SCAN Routine 01/22/2025 9:14 AM EDT 13 weeks gestation of HEPATITIS C ANTIBODY W/REFLEX TO HCV QUANT PCR Routine 11/01/2024 10:24 AM EST 9 weeks gestation of HIV 1/2 ANTIBODY/ANTIGEN SCREEN WITH REFLEX TO HIV I/II DIFFERENTIATION Routine 11/01/2024 10:24 AM EST 9 weeks gestation of from Last 3 Months or Most Recently Relevant to Health Maintenance Results * (ABNORMAL) CBC and differential (01/22/2025 9:20 AM EDT) WBC Count 7.98 3.70 - 10.30 10*3/uL LAB HEMATOLOGY METHOD 01/22/2025 1:52 PM EDT [facility] RBC Count 4.21 3.90 - 5.20 10*6/uL LAB HEMATOLOGY METHOD 01/22/2025 1:52 PM EDT [facility] HGB 11.2 11.2 - 15.7 g/dL LAB HEMATOLOGY METHOD 01/22/2025 1:52 PM EDT [facility] HCT 35.5 34.0 - 45.0 % LAB HEMATOLOGY METHOD 01/22/2025 1:52 PM EDT [facility] Platelet Count 260 155 - 369 10*3/uL LAB HEMATOLOGY METHOD 01/22/2025 1:52 PM EDT [facility] MCV 84 79 - 98 fL LAB HEMATOLOGY METHOD 01/22/2025 1:52 PM EDT [facility] MCH 26.6 26.0 - 32.0 pg LAB HEMATOLOGY METHOD 01/22/2025 1:52 PM EDT [facility] MCHC 31.5 30.7 - 35.5 g/dL LAB HEMATOLOGY METHOD 01/22/2025 1:52 PM EDT [facility] RDW 14.5 11.5 - 14.5 % LAB HEMATOLOGY METHOD 01/22/2025 1:52 PM EDT [facility] MPV 11.0 8.8 - 12.5 fL LAB HEMATOLOGY METHOD 01/22/2025 1:52 PM EDT [facility] nRBC 0.0 <=0.0 per 100 WBCs LAB HEMATOLOGY METHOD 01/22/2025 1:52 PM EDT [facility] Differential Type Automated LAB HEMATOLOGY METHOD 01/22/2025 1:52 PM EDT [facility] Neutrophils % 76 % LAB HEMATOLOGY METHOD 01/22/2025 1:52 PM EDT [facility] Lymphocytes % 15 % LAB HEMATOLOGY METHOD 01/22/2025 1:52 PM EDT [facility] Monocytes % 6 % LAB HEMATOLOGY METHOD 01/22/2025 1:52 PM EDT [facility] Eosinophils % 2 % LAB HEMATOLOGY METHOD 01/22/2025 1:52 PM EDT [facility] Basophils % 0 % LAB HEMATOLOGY METHOD 01/22/2025 1:52 PM EDT [facility] Immature Granulocytes % 1 % LAB HEMATOLOGY METHOD 01/22/2025 1:52 PM EDT [facility] Neutrophils Absolute 6.05 1.60 - 6.10 10*3/uL LAB HEMATOLOGY METHOD 01/22/2025 1:52 PM EDT [facility] Lymphocytes Absolute 1.21 1.20 - 3.90 10*3/uL LAB HEMATOLOGY METHOD 01/22/2025 1:52 PM EDT [facility] Monocytes Absolute 0.46 0.30 - 0.90 10*3/uL LAB HEMATOLOGY METHOD 01/22/2025 1:52 PM EDT [facility] Eosinophils Absolute 0.16 0.00 - 0.50 10*3/uL LAB HEMATOLOGY METHOD 01/22/2025 1:52 PM EDT [facility] Basophils Absolute 0.03 0.00 - 0.10 10*3/uL LAB HEMATOLOGY METHOD 01/22/2025 1:52 PM EDT [facility] Immature Granulocytes Absolute 0.07(H) 0.00 - 0.06 10*3/uL LAB HEMATOLOGY METHOD 01/22/2025 1:52 PM EDT [facility] Blood Venous blood specimen / Unknown Venipuncture / Unknown 01/22/2025 9:20 AM EDT 01/22/2025 1:14 PM EDT Narrative [facility] - 01/22/2025 1:52 PM EDT Therapeutic decision making should be based on absolute values, rather than percentages. us James Cowart MD LAB BLOOD ORDERABLES Final Resu lt [facility] [address] [place] [address] * Type and Screen (01/22/2025 9:20 AM EDT) ABO/Rh O Positive 01/22/2025 9:19 AM EDT BLOOD BANK Antibody Screen Negative 01/22/2025 9:19 AM EDT BLOOD BANK Specimen Expiration 01/25/2025 23:59 01/22/2025 9:19 AM EDT BLOOD BANK Blood Venous blood specimen / Unknown Venipuncture / Unknown 01/22/2025 9:20 AM EDT 01/22/2025 1:13 PM EDT us James Cowart MD LAB BLOOD BANK TEST ORDERABLES Final Result Performing Organization Address City/[facility]/ZIP Co de Phone Number BLOOD BANK [address] [place] [address], [place] * TSH (01/22/2025 9:20 AM EDT) Thyroid Stimulating Hormone, Plasma 1.65 0.40 - 4.20 uIU/mL 01/22/2025 2:00 PM EDT [facility] Blood Venous blood specimen / Unknown Venipuncture / Unknown 01/22/2025 9:20 AM EDT 01/22/2025 1:14 PM EDT Narrative [facility] - 01/22/2025 2:00 PM EDT Trimester Specific Ranges TSH ( IU/mL) 1st Trimester 0.1 - 3.0 2nd Trimester 0.19 - 4.06 3rd Trimester 0.3 - 3.7 Result Santino Cowart MD LAB BLOOD ORDERABLES Final Resu lt [facility] [address] [place] [address] * OB US 14+ Weeks Anatomy Scan (01/22/2025 9:14 AM EDT) Anatomical Region Laterality Modality Body Ultrasound 01/22/2025 8:05 AM EDT Impressions 01/23/2025 8:23 PM EDT The OB Ultrasound you requested has been resulted. Please navigate to the Imaging tab in [employer] for review. This message has been generated by the interface. Narrative Procedure Note Agnes Hameed MD - 01/23/2025 IMPRESSION: The OB Ultrasound you requested has been resulted. Please navigate to theImaging tab in [employer] for review. This message has been generated by theinterface. Result Santino Cowart MD IMG OB US PROCEDURES Final Resu lt * HIV 1 & 2 Antibody/Antigen Screen (11/01/2024 10:24 AM EST) Pathologist [facility] HIV 1 & 2 Antibody/Antigen Screen Non Reactive Non Reactive 11/01/2024 1:54 PM EST [facility] Comment:Screening for HIV 1 & 2 antibodies, and P24 antigen is NONREACTIVE. No confirmatory testing is required. Blood Venous blood specimen / Unknown Venipuncture / Unknown 11/01/2024 10:24 AM EST 11/01/2024 12:52 PM EST Result Santino Cowart MD LAB BLOOD ORDERABLES Final Resu lt Performing Organization Address City/[facility]/ZIP Co de Phone Number [facility] [address] [place] [address] * Hepatitis C Antibody w/Reflex to HCV Quant PCR (11/01/2024 10:24 AM EST) Hepatitis C Antibody Negative Negative 11/01/2024 1:31 PM EST [facility] Blood Venous blood specimen / Unknown Venipuncture / Unknown 11/01/2024 10:24 AM EST 11/01/2024 12:52 PM EST Result Santino Cowart MD LAB BLOOD ORDERABLES Final Resu lt Performing Organization Address City/[facility]/ZIP Co de Phone Number [facility] [address] [place] [address] from Last 3 Months or Most Recently Relevant to Health Maintenance Additional Health Concerns Active Problems Noted Date Diagnosed Date CPM S24 PP LABOR (OBSTETRICS) 11/19/2024 Insurance ANTH Care Teams Engineering Operations Leader Relationship Specialty Start Date End Date Stephanie Allen PA [address] [place] [address] PCP - General 08/30/24
--- OUTSIDE RECORDS SUMMARY | 2025-04-08 12:10 | XMS_ITS | Encounter Summary ---
Author Organization Healthcare Address [address] [place] [address] Care Team Providers Care Wool Presser Name Role Phone Stephanie Allen Primary Care Provider [phone] Encounter Details Date Type Department Care Team (Late st Contact Info) Description 01/29/2025 Telephone Obstetrics & Gynecology [address] [place] [address] James Cowart MD [address] [place] [address] Social History Tobacco Use Types [...] encounter Miscellaneous Notes * Telephone Encounter - Wicho Maria Guadalupe L - 01/29/2025 3:03 PM EDT Clinical Concern/Question Reason for Call: pt is wanting to do a JAZLYN to [facility] with Dr. Mahogany Beavers. Pt is asking that her records please be faxed to that hospital. Fax for their office is [phone] Attn: Dr. Bart Beavers. Please cx the u/s apts that are left on schedule, I have cx the OB apts Best contact number: [phone] (mobile) Optimal time of day to reach caller: ANYTIME Additional comments/information from caller: Not Applicable Note: Please do not reply to this message. Follow-up communication and further actions as a result of this message need to be communicated with the patient directly, if the patient is not active onMyChart. If the patient is active on MyChart, they will receive notification of the communication/outcome via [facility]. documented in this encounter Plan of Treatment [...] Time PHQ-9 Depression Total Score: 0 01/04/20 25 8:49 AM EST A fall risk assessment has been complete d for the patient 01/22/2025 9:04 AM EDT A Body Mass Index follow-up plan has been documented for the patient 01/22/2025 10:02 AM EDT documented as of this encounter Care Teams Wool Presser Relationship Specialty Start Date End Date Stephanie Allen PA [address] [place] [address] PCP - General 08/30/24 documented as of this encounter
[2025-04-08 12:21] LABS: Microscopic, Urine URINE MICROSCOPIC (MICROSCOPIC)
[2025-04-08 12:38] LABS: Appearance,Urine CLEAR (Clear); Bilirubin,Urine Negative (Negative); Blood, Urine Negative (Negative); Color,Urine YELLOW (Yellow); Glucose,Urine (UA) Negative (Negative); Ketones,Urine Negative (Negative); Leukocyte Esterase,Urine Negative (Negative); Nitrate,Urine Negative (Negative); Protein,Urine Negative (Negative); Specific Gravity, Urine 1.025 (1.005-1.030); Urobilinogen,Urine 0.2 EU/dl (0.2)
[2025-04-08] MEDS: LACTATED RINGERS 1000ML 1,000 ML 999 ML IV (13:03)
[2025-04-08 13:26] LABS: Bacteria,Urine Trace /lpf
[2025-04-08 13:36] LABS: Basophils % 0.3 % (0.1-2.0); Eosinophils # 0.2 Kmm3 (0.0-0.4); Eosinophils % 1.6 % (0.1-12.0); Hematocrit 33.3 % (37.0-47.0); Hemoglobin 10.4 g/dL (12.2-16.2); Immature Granulocytes # 0.11 10^3uL; Immature Granulocytes % 1.2 %; Lymphocytes # 1.6 K/mm3 (0.7-4.5); Lymphocytes % 16.9 % (10-50); Mean Corpuscular HGB Conc 31.2 g/dL (31.8-35.4); Mean Corpuscular Hemoglobin 26.1 pg (27.0-31.2); Mean Corpuscular Volume 83.5 fl (81-99); Mean Platelet Volume 10.3 fl (7.4-10.4); Monocytes # 0.6 K/mm3 (0.1-1.0); Monocytes % 6.3 % (1.7-9.3); Neutrophils # 6.9 K/mm3 (1.8-7.8); Neutrophils % 73.7 % (37.0-80.0); Nucleated Red Blood Cells # 0 10^3/uL; Nucleated Red Blood Cells % 0 %; Platelet Count 273 K/mm3 (142-424); Red Blood Count 3.99 M/mm3 (4.20-5.40); Red Cell Distribution Width 15.2 % (11.5-17.5); Red Cell Distribution Width-SD 46.3 fL; White Blood Count 9.3 K/mm3 (4.8-10.8)
[2025-04-08 13:52] LABS: Alanine Aminotransferase 11 U/L (12-78); Albumin Level 3.7 g/dl (3.5-5.0); Albumin/Globulin Ratio 1.2 (1.1-1.8); Alkaline Phosphatase 86 U/L (38-126); Anion Gap 7.2 mEq/L (5-15); Aspartate Amino Transferase 20 U/L (14-36); Bilirubin,Total 0.3 mg/dl (0.2-1.3); Blood Urea Nitrogen 12 mg/dl (7-17); Calcium 9.1 mg/dl (8.4-10.2); Carbon Dioxide 23 mmol/L (22.0-30.0); Chloride 108 mmol/L (98-107); Creatinine Clearance Estimated 96 mL/min (50-200); Estimated Glomerular Filt Rate 101 ml/min (>60); GFR (African American) 122 ML/MIN (>60); Globulin 3.1 g/dL (1.3-3.2); Glucose 87 mg/dl (74-100); Magnesium 1.7 mg/dl (1.6-2.3); Potassium 4.2 mmoL/L (3.5-5.1); Sodium 134 mmol/L (136-145); Total Protein,Serum 6.8 g/dl (6.3-8.2)
== END 2025-04-08 17:02 | disposition home or self-care (01) ==
LOC: OBOUT 12:08 → OB 12:09
PROVIDERS: PCP Nurse Practitioner Family; Visit Provider Obstetrics & Gynecology
DX: O26.893 Other specified pregnancy related conditions, third trimester (principal); R42 Dizziness and giddiness; R11.10 Vomiting, unspecified
CPT/HCPCS: 36415; 59025; 80053; 81001; 83735; 85025; 96360; 96361; 99212; G0463; J7120

== ENCOUNTER 2025-04-10 15:18 | Outpatient (CLI) | payer BC, SELFPAY ==
--- OUTSIDE RECORDS SUMMARY | 2025-04-10 15:27 | XMS_ITS | Clinical Summary ---
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
--- OUTSIDE RECORDS SUMMARY | 2025-04-10 15:27 | XMS_ITS | Referral Summary ---
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
--- OUTSIDE RECORDS SUMMARY | 2025-04-10 15:27 | XMS_ITS | Encounter Summary ---
Author Organization Healthcare Address [address] [place] [address] Care Team Providers Care Computer Network Specialist Name Role Phone None, None Primary Care Provider [phone] Stephanie Allen Primary Care Provider [phone] Encounter Details Date Type Department Care Team (Late st Contact Info) Description 10/12/2022 Outside Procedure External Location [address] [place] [address] James Cowart MD [address] [place], [place] [...] AM EST Narrative 10/12/2022 8:21 [place] [address] Name: LETICIA PENNINGTON Exam Date: 10/12/2022 : 2000 Age 22 Gender: F Physician: JAMES COWART Facility: [facility] Facility HSV: Outpatient Exam: HYSTEROSALPINGOGRAM FLUOROSCOPY [...] Thank you for referring LETICIA PENNINGTON to [facility]. Legally authenticated by POPE ANA Baptiste 2022-10-12 08:09:41 Procedure Note Provider, Generic [place] - 10/12/2022 [place] [address] Name: LETICIA PENNINGTON Exam Date: 10/12/2022 : 2000 Age 22 Gender: F Physician: JAMES COWART Facility: [facility] Facility HSV: Outpatient Exam: HYSTEROSALPINGOGRAM FLUOROSCOPY [...] Thank you for referring LETICIA PENNINGTON to [facility]. Legally authenticated by POPE ANA Baptiste 2022-10-12 08:09:41 James Cowart MD IMG FLUOROSCOPY PROCEDURES Gayle l Result documented in this encounter Visit Diagnoses Not on filedocumented in this encounter Care Teams Computer Network Specialist Relationship Specialty Start Date End Date None, None [address] [place] [address] PCP - General NONE FOUND 09/05/22 05/23/24 Stephanie Allen PA [address] [place] [address] PCP - General 08/30/24 documented as of this encounter
--- OUTSIDE RECORDS SUMMARY | 2025-04-10 15:27 | XMS_ITS | Encounter Summary ---
Author Organization Healthcare Address [address] [place] [address] Care Team Providers Care Business Planning Analyst Name Role Phone Stephanie Allen Primary Care Provider [phone] Encounter Details Date Type Department Care Team (Late st Contact Info) Description 01/29/2025 Telephone Obstetrics & Gynecology [address] [place] [address] James Cowart MD [address] [place] [address] Social History Tobacco Use Types [...] is wanting to do a JAZLYN to [facility] with Dr. Mahogany Beavers. Pt is asking that her records please be faxed to that hospital. Fax for their office is [phone] Attn: Dr. Bart Beavers. Please cx the u/s apts that are left on schedule, I have cx the OB apts Best contact number: [phone] (mobile) Optimal time of day to reach [...] will receive notification of the communication/outcome via [employer]. documented in this encounter Plan of Treatment [...] documented as of this encounter Care Teams Business Planning Analyst Relationship Specialty Start Date End Date Stephanie Allen PA [address] [place] [address] PCP - General 08/30/24 documented as of this encounter
--- OUTSIDE RECORDS SUMMARY | 2025-04-10 15:27 | XMS_ITS | Clinical Summary ---
Author Organization [facility] Address [address] [place] [address] Care Team Providers Care Cnc Operator Name Role Phone Stephanie Allen Primary Care Provider [phone] Allergies Active Allergy Reactions Criticality Noted Date [...] Telephone Obstetrics & Gynecology [address] [place] [address] James Cowart MD 01/29/2025 Telephone Obstetrics & Gynecology [address] [place] [address] James Cowart MD 01/22/2025 9:15 AM EDT Clinical Support Obstetrics & Gynecology [address] [place] [address] 21 weeks gestation of 01/22/2025 8:00 AM EDT Routine Obstetrics & Gynecology [address] [place] [address] James Cowart MD 21 weeks gestation of (Primary Dx); Cervical shortening in second trimester 01/22/2025 8:00 AM EDT - 01/22/2025 11:59 PM EDT Hospital Encounter [facility] Elaina OBALISHA Ultrasound [address] [place] [address] 13 weeks gestation of Discharge Disposition: Home [...] 19+ 3-dose series) 2017 [facility]-Pap Smear 2019 [id number] Vaccine ( - season) 2024 [facility]-Influenza Vaccine [...] LAB HEMATOLOGY METHOD 01/22/2025 1:52 PM EDT [facility] RBC Count 4.21 3.90 - 5.20 10*6/uL LAB HEMATOLOGY METHOD 01/22/2025 1:52 PM EDT [facility] HGB 11.2 11.2 - 15.7 g/dL LAB HEMATOLOGY METHOD 01/22/2025 1:52 PM EDT [facility] HCT 35.5 34.0 - 45.0 % LAB HEMATOLOGY METHOD 01/22/2025 1:52 PM EDT [facility] Platelet Count 260 155 - 369 10*3/uL LAB HEMATOLOGY METHOD 01/22/2025 1:52 PM EDT [facility] MCV 84 79 - 98 fL LAB HEMATOLOGY METHOD 01/22/2025 1:52 PM EDT [facility] MCH 26.6 26.0 - 32.0 pg LAB HEMATOLOGY METHOD 01/22/2025 1:52 PM EDT [facility] MCHC 31.5 30.7 - 35.5 g/dL LAB HEMATOLOGY METHOD 01/22/2025 1:52 PM EDT [facility] RDW 14.5 11.5 - 14.5 % LAB HEMATOLOGY METHOD 01/22/2025 1:52 PM EDT [facility] MPV 11.0 8.8 - 12.5 fL LAB HEMATOLOGY METHOD 01/22/2025 1:52 PM EDT [facility] nRBC 0.0 <=0.0 per 100 WBCs LAB HEMATOLOGY METHOD 01/22/2025 1:52 PM EDT [facility] Differential Type Automated LAB HEMATOLOGY METHOD 01/22/2025 1:52 PM EDT [facility] Neutrophils % 76 % LAB HEMATOLOGY METHOD 01/22/2025 1:52 PM EDT [facility] Lymphocytes % 15 % LAB HEMATOLOGY METHOD 01/22/2025 1:52 PM EDT [facility] Monocytes % 6 % LAB HEMATOLOGY METHOD 01/22/2025 1:52 PM EDT [facility] Eosinophils % 2 % LAB HEMATOLOGY METHOD 01/22/2025 1:52 PM EDT [facility] Basophils % 0 % LAB HEMATOLOGY METHOD 01/22/2025 1:52 PM EDT [facility] Immature Granulocytes % 1 % LAB HEMATOLOGY METHOD 01/22/2025 1:52 PM EDT [facility] Neutrophils Absolute 6.05 1.60 - 6.10 10*3/uL LAB HEMATOLOGY METHOD 01/22/2025 1:52 PM EDT [facility] Lymphocytes Absolute 1.21 1.20 - 3.90 10*3/uL LAB HEMATOLOGY METHOD 01/22/2025 1:52 PM EDT [facility] Monocytes Absolute 0.46 0.30 - 0.90 10*3/uL LAB HEMATOLOGY METHOD 01/22/2025 1:52 PM EDT [facility] Eosinophils Absolute 0.16 0.00 - 0.50 10*3/uL LAB HEMATOLOGY METHOD 01/22/2025 1:52 PM EDT [facility] Basophils Absolute 0.03 0.00 - 0.10 10*3/uL LAB HEMATOLOGY METHOD 01/22/2025 1:52 PM EDT [facility] Immature Granulocytes Absolute 0.07(H) 0.00 - 0.06 10*3/uL LAB HEMATOLOGY METHOD 01/22/2025 1:52 PM EDT [facility] Blood Venous blood specimen / Unknown Venipuncture / Unknown 01/22/2025 9:20 AM EDT 01/22/2025 1:14 PM EDT Narrative [facility] - 01/22/2025 1:52 PM EDT Therapeutic decision making should be based on absolute values, rather than percentages. us James Cowart MD LAB BLOOD ORDERABLES Final Resu lt [facility] [address] [place] [address] * Type and Screen (01/22/2025 9:20 AM [...] TEST ORDERABLES Final Result Performing Organization Address City/[facility]/ZIP Co de Phone Number BLOOD BANK [address] [place] [address], [place] * TSH (01/22/2025 9:20 AM EDT) Thyroid Stimulating Hormone, Plasma 1.65 0.40 - 4.20 uIU/mL 01/22/2025 2:00 PM EDT [facility] Blood Venous blood specimen / Unknown Venipuncture / Unknown 01/22/2025 9:20 AM EDT 01/22/2025 1:14 PM EDT Narrative [facility] - 01/22/2025 2:00 PM EDT Trimester Specific Ranges TSH ( IU/mL) 1st Trimester 0.1 - 3.0 2nd Trimester 0.19 - 4.06 3rd Trimester 0.3 - 3.7 Result Santino Cowart MD LAB BLOOD ORDERABLES Final Resu lt [facility] [address] [place] [address] * OB US 14+ Weeks Anatomy Scan (01/22/2025 9:14 AM EDT) Anatomical Region Laterality Modality Body Ultrasound 01/22/2025 8:05 AM EDT Impressions 01/23/2025 8:23 PM EDT The OB Ultrasound you requested has been resulted. Please navigate to the Imaging tab in [employer] for review. This message has been generated by the interface. Narrative Procedure Note Agnes Hameed MD - 01/23/2025 IMPRESSION: The OB Ultrasound you requested has been resulted. Please navigate to theImaging tab in [employer] for review. This message has been generated by theinterface. Result Santino Cowart MD IMG OB US PROCEDURES Final Resu lt * HIV 1 & 2 Antibody/Antigen Screen (11/01/2024 10:24 AM EST) Pathologist [facility] HIV 1 & 2 Antibody/Antigen Screen Non Reactive Non Reactive 11/01/2024 1:54 PM EST [facility] Comment:Screening for HIV 1 & 2 antibodies, and P24 antigen is NONREACTIVE. No confirmatory testing is required. Blood Venous blood specimen / Unknown Venipuncture / Unknown 11/01/2024 10:24 AM EST 11/01/2024 12:52 PM EST Result Santino Cowart MD LAB BLOOD ORDERABLES Final Resu lt Performing Organization Address City/[facility]/ZIP Co de Phone Number [facility] [address] [place] [address] * Hepatitis C Antibody w/Reflex to HCV Quant PCR (11/01/2024 10:24 AM EST) Hepatitis C Antibody Negative Negative 11/01/2024 1:31 PM EST [facility] Blood Venous blood specimen / Unknown Venipuncture / Unknown 11/01/2024 10:24 AM EST 11/01/2024 12:52 PM EST Result Santino Cowart MD LAB BLOOD ORDERABLES Final Resu lt Performing Organization Address City/[facility]/ZIP Co de Phone Number [facility] [address] [place] [address] from Last 3 Months or Most Recently Relevant to Health Maintenance Additional Health Concerns Active Problems Noted Date Diagnosed Date CPM S24 PP LABOR (OBSTETRICS) 11/19/2024 Insurance ANTH Care Teams Cnc Operator Relationship Specialty Start Date End Date Stephanie Allen PA [address] [place] [address] PCP - General 08/30/24
--- OUTSIDE RECORDS SUMMARY | 2025-04-10 15:27 | XMS_ITS | Encounter Summary ---
Author Organization Healthcare Address [address] [place] [address] Care Team Providers Care Press Officer Name Role Phone Stephanie Allen Primary Care Provider [phone] Encounter Details Date Type Department Care Team (Late st Contact Info) Description 02/21/2025 Telephone Obstetrics & Gynecology [address] [place] [address] James Cowart MD [address] [place] [address] Social History Tobacco Use Types [...] pt appt no longer needed- transferring to [facility] documented in this encounter Plan of Treatment [...] documented as of this encounter Care Teams Press Officer Relationship Specialty Start Date End Date Stephanie Allen PA [address] [place] [address] PCP - General 08/30/24 documented as of this encounter
--- OUTSIDE RECORDS SUMMARY | 2025-04-10 15:27 | XMS_ITS | Data Portability ---
Author Organization [facility] & GERONIMO Harrell ADMIN Address [address] [place] [id number] Care Team Providers Care Audio Visual Aids Director Name Role Phone UNRULY ROSEN Primary Care Provider [phone] TRAMAINE WINKLER Primary Care Provider Assessment No assessment recorded. Plan of Treatment Reminders Order Date Submit Date Provider Last Modified By Organization Details Last Modified Time Details Appointments None recorded. Lab CBC w/ auto diff 2022 023 [email or web address] 6 [facility], [address] [place], [address], 3 08:47:10 ferritin, serum or plasma 2022 023 [email or web address] 6 [facility], [address] [place], [address], 3 08:47:10 iron + total iron-bindin g capacity (TIBC), serum 2022 023 [email or web address] 6 [facility], [address] [place], [address], 3 08:47:10 CMP, serum or plasma 2022 023 [email or web address] 6 [facility], [address] [place], [address], 3 08:47:10 CBC w/ auto diff 2022 023 MIESHA [facility], [address], [address], [place], [address], 3 07:14:24 vitamin D, 25-hydroxy, total, serum 2022 023 MIESHA [facility], [address], [address], [place], [address], 3 07:14:27 vitamin B12 + folate, serum or blood 2022 023 MIESHA [facility], [address], [address], [place], [address], 3 07:14:26 magnesium, serum or plasma 2022 023 MIESHA [facility], [address], [address], [place], [address], 3 07:14:28 TSH + free T4, serum 2022 023 MIESHA [facility], [address], [address], [place], [address], 3 07:14:23 CMP, serum or plasma 2022 023 MIESHA [facility], [address], [address], [place], [address], 3 07:14:25 iron + TIBC + ferritin, serum 2022 023 MIESHA [facility], [address], [address], [place], [address], 3 07:14:21 iron + TIBC + ferritin, serum 2022 023 MIESHA [facility], [address], [address], [place], [address], 3 08:21:13 CBC w/ auto diff 2022 023 CRYSTAL [facility], [address], [address], [place], [address], 3 08:21:13 CMP, serum or plasma 2022 023 CRYSTAL [facility], [address], [address], [place], [address], 3 08:21:15 Referral behavioral health referral 2022 023 [email or web address] 3 [facility], [address], [address], [place], [address], 3 08:01:02 Procedures None recorded. Surgeries None recorded. Imaging None recorded. Medication Orders Vitamin D3 125 mcg (5,000 unit) tablet 2022 023 [facility], [facility], [id number], 3 16:18:04 duloxetine 60 mg capsule,del ayed release 2022 023 [email or web address] 2 [facility], [address] [place] [address], [id number], 3 14:25:59 Wegovy 0.25 mg/0.5 mL subcutaneou s pen injector 2022 023 [email or web address] 9 [facility] [place], [address], 3 08:44:47 Flonase Allergy Relief 50 mcg/actuati on nasal spray,suspe nsion 2022 023 [email or web address] 2 [facility], [address] [place], [address], 3 16:23:10 Zyrtec 10 mg tablet 2022 023 [email or web address] [id number] 9 [facility], [address] [place], [address], 3 08:44:34 Wellbutrin SR 150 mg tablet, 12 hr sustained-r elease 2022 023 [email or web address] [id number] 9 [facility], [address] [place], [address], 3 08:44:29 Seroquel 100 mg tablet 2022 023 [email or web address] [id number] 9 [facility], [address] [place], [address], 3 08:44:54 Patient TargetsNo targets recorded. Patient InstructionsNo instructions recorded. Reason for Referral Behavioral Health Referral f or Mixed anxiety and depressive disorder Referring Physician: Unruly Rosen, Infectious Disease, Encounter Date: 08/08/2023 Results Created Date Observation Date Name Description Value Unit Range Abnormal Flag Note LastModifiedBy Organization Detail LastModifiedTime 07/18/2007/19/2023 FE+TI BC+FE R iron bind.cap.(TI BC) 427 ug/dL 250-45 0 Not Available [facility] ([facility]) [address] [place], [address], 07/19/2023 08:21:12 07/18/2007/19/2023 FE+TI BC+FE R UIBC 396 ug/dL 131-42 5 Not Available [facility] ([facility]) [address] [place], [address], 07/19/2023 08:21:12 07/18/20 23 07/19/2023 FE+TI BC+FE R iron 31 ug/dL 27-159 Not Available [facility] ([facility]) [address] [place], [address], 07/19/2023 08:21:12 07/18/20 23 07/19/2023 FE+TI BC+FE R iron saturation 7 % 15-55 alert low Not Available [facility] ([facility]) [address] [place], [address], 07/19/2023 08:21:12 07/18/20 23 07/19/2023 FE+TI BC+FE R ferritin 61 NG/mL 15-150 Not Available [facility] ([facility]) [address] [place], [address], 07/19/2023 08:21:12 07/18/20 23 07/19/2023 CBC WITH DIFFE RENTI AL/PL ATELE T WBC 9.7 x10e3 /uL 3.4-10 .8 Not Available [facility] ([facility]) [address] [place], [address], 07/19/2023 08:21:13 07/18/20 23 07/19/2023 CBC WITH DIFFE RENTI AL/PL ATELE T RBC 4.95 x10e6 /uL 3.77-5 .28 Not Available [facility] ([facility]) [address] [place], [address], 07/19/2023 08:21:13 07/18/20 23 07/19/2023 CBC WITH DIFFE RENTI AL/PL ATELE T hemoglobin 13.1 g/dL 11.1-1 5.9 Not Available [facility] ([facility]) [address] [place], [address], 07/19/2023 08:21:13 07/18/20 23 07/19/2023 CBC WITH DIFFE RENTI AL/PL ATELE T hematocrit 40.6 % 34.0-4 6.6 Not Available [facility] ([facility]) [address] [place], [address], 07/19/2023 08:21:13 07/18/20 23 07/19/2023 CBC WITH DIFFE RENTI AL/PL ATELE T MCV 82 fL 79-97 Not Available [facility] ([facility]) [address] [facility], [place], [address], 07/19/2023 08:21:13 07/18/20 23 07/19/2023 CBC WITH DIFFE RENTI AL/PL ATELE T MCH 26.5 pg 26.6-3 3.0 below low normal Not Available [facility] ([facility]) [address] [facility], [place], [address], 07/19/2023 08:21:13 07/18/20 23 07/19/2023 CBC WITH DIFFE RENTI AL/PL ATELE T MCHC 32.3 g/dL 31.5-3 5.7 Not Available [facility] ([facility]) [address] [facility], [place], [address], 07/19/2023 08:21:13 07/18/20 23 07/19/2023 CBC WITH DIFFE RENTI AL/PL ATELE T RDW 13.1 % 11.7-1 5.4 Not Available [facility] ([facility]) [address] [facility], [place], [address], 07/19/2023 08:21:13 07/18/20 23 07/19/2023 CBC WITH DIFFE RENTI AL/PL ATELE T platelets 287 x10e3 /uL 150-45 0 Not Available [facility] ([facility]) [address] [facility], [place], [address], 07/19/2023 08:21:13 07/18/20 23 07/19/2023 CBC WITH DIFFE RENTI AL/PL ATELE T neutrophils 65 % not estab. Not Available [facility] ([facility]) [address] [facility], [place], [address], 07/19/2023 08:21:13 07/18/20 23 07/19/2023 CBC WITH DIFFE RENTI AL/PL ATELE T lymphs 24 % not estab. Not Available [facility] ([facility]) [address] [place], [address], 07/19/2023 08:21:13 07/18/20 23 07/19/2023 CBC WITH DIFFE RENTI AL/PL ATELE T monocytes 7 % not estab. Not Available [facility] ([facility]) [address] [facility], [place], [address], 07/19/2023 08:21:13 07/18/20 23 07/19/2023 CBC WITH DIFFE RENTI AL/PL ATELE T eos 3 % not estab. Not Available [facility] ([facility]) [address] [facility], [place], [address], 07/19/2023 08:21:13 07/18/20 23 07/19/2023 CBC WITH DIFFE RENTI AL/PL ATELE T basos 0 % not estab. Not Available [facility] ([facility]) [address] [place], [address], 07/19/2023 08:21:13 07/18/20 23 07/19/2023 CBC WITH DIFFE RENTI AL/PL ATELE T immature cells EAR[employer] CHILDH[employer] ASSOCIATE Not Available [facility] ([facility]) [address] [place], [address], 07/19/2023 08:21:13 07/18/20 23 07/19/2023 CBC WITH DIFFE RENTI AL/PL ATELE T neutrophils (absolute) 6.4 x10e3 /uL 1.4-7. 0 Not Available [facility] ([facility]) [address] [place], [address], 07/19/2023 08:21:13 07/18/20 23 07/19/2023 CBC WITH DIFFE RENTI AL/PL ATELE T lymphs (absolute) 2.3 x10e3 /uL 0.7-3. 1 Not Available [facility] ([facility]) [address] [facility], [place], [address], 07/19/2023 08:21:13 07/18/20 23 07/19/2023 CBC WITH DIFFE RENTI AL/PL ATELE T monocytes(ab solute) 0.6 x10e3 /uL 0.1-0. 9 Not Available [facility] ([facility]) [address] [facility], [place], [address], 07/19/2023 08:21:13 07/18/20 23 07/19/2023 CBC WITH DIFFE RENTI AL/PL ATELE T eos (absolute) 0.3 x10e3 /uL 0.0-0. 4 Not Available [facility] ([facility]) [address] [facility], [place], [address], 07/19/2023 08:21:13 07/18/20 23 07/19/2023 CBC WITH DIFFE RENTI AL/PL ATELE T baso (absolute) 0.0 x10e3 /uL 0.0-0. 2 Not Available [facility] ([facility]) [address] [facility], [place], [address], 07/19/2023 08:21:13 07/18/20 23 07/19/2023 CBC WITH DIFFE RENTI AL/PL ATELE T immature granulocytes 1 % not estab. Not Available [facility] ([facility]) [address] [facility], [place], [address], 07/19/2023 08:21:13 07/18/20 23 07/19/2023 CBC WITH DIFFE RENTI AL/PL ATELE T immature grans (abs) 0.1 x10e3 /uL 0.0-0. 1 Not Available [facility] ([facility]) [address] [facility], [place], [address], 07/19/2023 08:21:13 07/18/20 23 07/19/2023 CBC WITH DIFFE RENTI AL/PL ATELE T NRBC EAR[employer]IL[employer] ASSOCIATE Not Available [facility] ([facility]) [address] [facility], [place], [address], 07/19/2023 08:21:13 07/18/20 23 07/19/2023 CBC WITH DIFFE RENTI AL/PL ATELE T hematology comments: EARLY CHILDHOOD ASSOCIATE Not Available [facility] ([facility]) [address] [facility], [place], [address], 07/19/2023 08:21:13 07/18/20 23 07/19/2023 COMP. METAB OLIC PANEL (14) glucose 93 mg/dL 70-99 Not Available [facility] ([facility]) [address] [facility], [place], [address], 07/19/2023 08:21:15 07/18/20 23 07/19/2023 COMP. METAB OLIC PANEL (14) BUN 14 mg/dL 6-20 Not Available [facility] ([facility]) [address] [facility], [place], [address], 07/19/2023 08:21:15 07/18/20 23 07/19/2023 COMP. METAB OLIC PANEL (14) creatinine 0.77 mg/dL 0.57-1 .00 Not Available [facility] ([facility]) [address] [facility], [place], [address], 07/19/2023 08:21:15 07/18/20 23 07/19/2023 COMP. METAB OLIC PANEL (14) eGFR 110 mL/mi n/1.7 3 >59 Not Available [facility] ([facility]) [address] [place], [address], 07/19/2023 08:21:15 07/18/20 23 07/19/2023 COMP. METAB OLIC PANEL (14) BUN/creatini ne ratio 18 9-23 Not Available [facility] ([facility]) [address] [facility] [place], [address], 07/19/2023 08:21:15 07/18/20 23 07/19/2023 COMP. METAB OLIC PANEL (14) sodium 141 mmol/ L 134-14 4 Not Available [facility] ([facility]) [address] [place], [address], 07/19/2023 08:21:15 07/18/20 23 07/19/2023 COMP. METAB OLIC PANEL (14) potassium 4.1 mmol/ L 3.5-5. 2 Not Available [facility] ([facility]) [address] [place], [address], 07/19/2023 08:21:15 07/18/20 23 07/19/2023 COMP. METAB OLIC PANEL (14) chloride 104 mmol/ L 96-106 Not Available [facility] ([facility]) [address] [facility] [place], [address], 07/19/2023 08:21:15 07/18/20 23 07/19/2023 COMP. METAB OLIC PANEL (14) carbon dioxide, total 21 mmol/ L 20-29 Not Available [facility] ([facility]) [address] [facility] [place], [address], 07/19/2023 08:21:15 07/18/20 23 07/19/2023 COMP. METAB OLIC PANEL (14) calcium 9.4 mg/dL 8.7-10 .2 Not Available [facility] ([facility]) [address] [facility] [place], [address], 07/19/2023 08:21:15 07/18/20 23 07/19/2023 COMP. METAB OLIC PANEL (14) protein, total 7.2 g/dL 6.0-8. 5 Not Available [facility] ([facility]) [address] [facility] [place], [address], 07/19/2023 08:21:15 07/18/20 23 07/19/2023 COMP. METAB OLIC PANEL (14) albumin 4.3 g/dL 4.0-5. 0 Not Available [facility] ([facility]) [address] [facility], [place], [address], 07/19/2023 08:21:15 07/18/20 23 07/19/2023 COMP. METAB OLIC PANEL (14) globulin, total 2.9 g/dL 1.5-4. 5 Not Available [facility] ([facility]) [address] [facility], [place], [address], 07/19/2023 08:21:15 07/18/20 23 07/19/2023 COMP. METAB OLIC PANEL (14) A/G ratio 1.5 1.2-2. 2 Not Available [facility] ([facility]) [address] [facility], [place], [address], 07/19/2023 08:21:15 07/18/20 23 07/19/2023 COMP. METAB OLIC PANEL (14) bilirubin, total 0.2 mg/dL 0.0-1. 2 Not Available [facility] ([facility]) [address] [facility], [place], [address], 07/19/2023 08:21:15 07/18/20 23 07/19/2023 COMP. METAB OLIC PANEL (14) alkaline phosphatase 80 IU/L 44-121 Not Available [facility] ([facility]) [address] [facility], [place], [address], 07/19/2023 08:21:15 07/18/20 23 07/19/2023 COMP. METAB OLIC PANEL (14) AST (SGOT) 14 IU/L 0-40 Not Available [facility] ([facility]) [address] [facility] [place], [address], 07/19/2023 08:21:15 09/19/07/19/2023 COMP. METAB OLIC PANEL (14) ALT (SGPT) 10 IU/L 0-32 Not Available [facility] ([facility]) [address] [place], [address], 07/19/2023 08:21:15 08/08/2008/09/2023 FE+TI BC+FE R iron bind.cap.(TI BC) 369 ug/dL 250-45 0 Not Available [facility] ([facility]) [address] [place], [address], 08/09/2023 07:14:21 08/08/2008/09/2023 FE+TI BC+FE R UIBC 334 ug/dL 131-42 5 Not Available [facility] ([facility]) [address] [place], [address], 08/09/2023 07:14:21 08/08/2008/09/2023 FE+TI BC+FE R iron 35 ug/dL 27-159 Not Available [facility] ([facility]) [address] [place], [address], 08/09/2023 07:14:21 08/08/2008/09/2023 FE+TI BC+FE R iron saturation 9 % 15-55 alert low Not Available [facility] ([facility]) [address] [place], [address], 08/09/2023 07:14:21 08/08/2008/09/2023 FE+TI BC+FE R ferritin 53 NG/mL 15-150 Not Available [facility] ([facility]) [address] [place], [address], 08/09/2023 07:14:21 08/08/2008/09/2023 TSH+F REE T4 TSH 0.925 uIU/m L 0.450- 4.500 Not Available [facility] ([facility]) [address] [place], [address], 08/09/2023 07:14:22 08/08/2008/09/2023 TSH+F REE T4 T4,free(dire ct) 0.96 NG/dL 0.82-1 .77 Not Available [facility] ([facility]) [address] [place], [address], 08/09/2023 07:14:22 08/08/2008/09/2023 CBC WITH DIFFE RENTI AL/PL ATELE T WBC 7.7 x10e3 /uL 3.4-10 .8 Not Available [facility] ([facility]) [address] [place], [address], 08/09/2023 07:14:24 08/08/2008/09/2023 CBC WITH DIFFE RENTI AL/PL ATELE T RBC 4.90 x10e6 /uL 3.77-5 .28 Not Available [facility] ([facility]) [address] [place], [address], 08/09/2023 07:14:24 08/08/2008/09/2023 CBC WITH DIFFE RENTI AL/PL ATELE T hemoglobin 13.2 g/dL 11.1-1 5.9 Not Available [facility] ([facility]) [address] [place], [address], 08/09/2023 07:14:24 08/08/2008/09/2023 CBC WITH DIFFE RENTI AL/PL ATELE T hematocrit 40.4 % 34.0-4 6.6 Not Available [facility] ([facility]) [address] [place], [address], 08/09/2023 07:14:24 08/08/2008/09/2023 CBC WITH DIFFE RENTI AL/PL ATELE T MCV 82 fL 79-97 Not Available [facility] ([facility]) [address] [place], [address], 08/09/2023 07:14:24 08/08/2008/09/2023 CBC WITH DIFFE RENTI AL/PL ATELE T MCH 26.9 pg 26.6-3 3.0 Not Available [facility] ([facility]) [address] [facility], [place], [address], 08/09/2023 07:14:24 08/08/2008/09/2023 CBC WITH DIFFE RENTI AL/PL ATELE T MCHC 32.7 g/dL 31.5-3 5.7 Not Available [facility] ([facility]) [address] [facility], [place], [address], 08/09/2023 07:14:24 08/08/2008/09/2023 CBC WITH DIFFE RENTI AL/PL ATELE T RDW 13.3 % 11.7-1 5.4 Not Available [facility] ([facility]) [address] [facility], [place], [address], 08/09/2023 07:14:24 08/08/2008/09/2023 CBC WITH DIFFE RENTI AL/PL ATELE T platelets 298 x10e3 /uL 150-45 0 Not Available [facility] ([facility]) [address] [place], [address], 08/09/2023 07:14:24 08/08/2008/09/2023 CBC WITH DIFFE RENTI AL/PL ATELE T neutrophils 68 % not estab. Not Available [facility] ([facility]) [address] [place], [address], 08/09/2023 07:14:24 08/08/2008/09/2023 CBC WITH DIFFE RENTI AL/PL ATELE T lymphs 23 % not estab. Not Available [facility] ([facility]) [address] [place], [address], 08/09/2023 07:14:24 08/08/20 23 08/09/2023 CBC WITH DIFFE RENTI AL/PL ATELE T monocytes 6 % not estab. Not Available [facility] ([facility]) [address] [facility], [place], [address], 08/09/2023 07:14:24 08/08/2008/09/2023 CBC WITH DIFFE RENTI AL/PL ATELE T eos 3 % not estab. Not Available [facility] ([facility]) [address] [facility], [place], [address], 08/09/2023 07:14:24 08/08/2008/09/2023 CBC WITH DIFFE RENTI AL/PL ATELE T basos 0 % not estab. Not Available [facility] ([facility]) [address] [facility], [place], [address], 08/09/2023 07:14:24 08/08/2008/09/2023 CBC WITH DIFFE RENTI AL/PL ATELE T immature cells EARLY CHILDHO[employer] ASSOCIATE Not Available [facility] ([facility]) [address] [facility], [place], [address], 08/09/2023 07:14:24 08/08/2008/09/2023 CBC WITH DIFFE RENTI AL/PL ATELE T neutrophils (absolute) 5.2 x10e3 /uL 1.4-7. 0 Not Available [facility] ([facility]) [address] [facility], [place], [address], 08/09/2023 07:14:24 08/08/2008/09/2023 CBC WITH DIFFE RENTI AL/PL ATELE T lymphs (absolute) 1.8 x10e3 /uL 0.7-3. 1 Not Available [facility] ([facility]) [address] [place], [address], 08/09/2023 07:14:24 08/08/20 23 08/09/2023 CBC WITH DIFFE RENTI AL/PL ATELE T monocytes(ab solute) 0.5 x10e3 /uL 0.1-0. 9 Not Available [facility] ([facility]) [address] [facility], [place], [address], 08/09/2023 07:14:24 08/08/2008/09/2023 CBC WITH DIFFE RENTI AL/PL ATELE T eos (absolute) 0.2 x10e3 /uL 0.0-0. 4 Not Available [facility] ([facility]) [address] [facility], [place], [address], 08/09/2023 07:14:24 08/08/2008/09/2023 CBC WITH DIFFE RENTI AL/PL ATELE T baso (absolute) 0.0 x10e3 /uL 0.0-0. 2 Not Available [facility] ([facility]) [address] [facility], [place], [address], 08/09/2023 07:14:24 08/08/2008/09/2023 CBC WITH DIFFE RENTI AL/PL ATELE T immature granulocytes 0 % not estab. Not Available [facility] ([facility]) [address] [facility], [place], [address], 08/09/2023 07:14:24 08/08/2008/09/2023 CBC WITH DIFFE RENTI AL/PL ATELE T immature grans (abs) 0.0 x10e3 /uL 0.0-0. 1 Not Available [facility] ([facility]) [address] [facility], [place], [address], 08/09/2023 07:14:24 08/08/2008/09/2023 CBC WITH DIFFE RENTI AL/PL ATELE T NRBC EARLY CHIL[employer] ASSOCIATE Not Available [facility] ([facility]) [address] [facility], [place], [address], 08/09/2023 07:14:24 08/08/20 23 08/09/2023 CBC WITH DIFFE RENTI AL/PL ATELE T hematology comments: EARLY CHILDHOOD ASSOCIATE Not Available [facility] ([facility]) [address] [facility], [place], [address], 08/09/2023 07:14:24 08/08/20 23 08/09/2023 COMP. METAB OLIC PANEL (14) glucose 99 mg/dL 70-99 Not Available [facility] ([facility]) [address] [facility], [place], [address], 08/09/2023 07:14:25 08/08/2008/09/2023 COMP. METAB OLIC PANEL (14) BUN 17 mg/dL 6-20 Not Available [facility] ([facility]) [address] [facility], [place], [address], 08/09/2023 07:14:25 08/08/20 23 08/09/2023 COMP. METAB OLIC PANEL (14) creatinine 0.83 mg/dL 0.57-1 .00 Not Available [facility] ([facility]) [address] [facility], [place], [address], 08/09/2023 07:14:25 08/08/20 23 08/09/2023 COMP. METAB OLIC PANEL (14) eGFR 100 mL/mi n/1.7 3 >59 Not Available [facility] ([facility]) [address] [facility], [place], [address], 08/09/2023 07:14:25 08/08/20 23 08/09/2023 COMP. METAB OLIC PANEL (14) BUN/creatini ne ratio 20 9-23 Not Available [facility] ([facility]) [address] [facility], [place], [address], 08/09/2023 07:14:25 08/08/20 23 08/09/2023 COMP. METAB OLIC PANEL (14) sodium 144 mmol/ L 134-14 4 Not Available [facility] ([facility]) [address] [facility], [place], [address], 08/09/2023 07:14:25 08/08/20 23 08/09/2023 COMP. METAB OLIC PANEL (14) potassium 4.4 mmol/ L 3.5-5. 2 Not Available [facility] ([facility]) [address] [facility], [place], [address], 08/09/2023 07:14:25 08/08/20 23 08/09/2023 COMP. METAB OLIC PANEL (14) chloride 105 mmol/ L 96-106 Not Available [facility] ([facility]) [address] [facility] [place], [address], 08/09/2023 07:14:25 08/08/20 23 08/09/2023 COMP. METAB OLIC PANEL (14) carbon dioxide, total 22 mmol/ L 20-29 Not Available [facility] ([facility]) [address] [facility], [place], [address], 08/09/2023 07:14:25 08/08/20 23 08/09/2023 COMP. METAB OLIC PANEL (14) calcium 9.2 mg/dL 8.7-10 .2 Not Available [facility] ([facility]) [address] [facility] [place], [address], 08/09/2023 07:14:25 08/08/20 23 08/09/2023 COMP. METAB OLIC PANEL (14) protein, total 6.9 g/dL 6.0-8. 5 Not Available [facility] ([facility]) [address] [facility] [place], [address], 08/09/2023 07:14:25 08/08/20 23 08/09/2023 COMP. METAB OLIC PANEL (14) albumin 4.3 g/dL 4.0-5. 0 Not Available [facility] ([facility]) [address] [place], [address], 08/09/2023 07:14:25 08/08/20 23 08/09/2023 COMP. METAB OLIC PANEL (14) globulin, total 2.6 g/dL 1.5-4. 5 Not Available [facility] ([facility]) [address], [place], [address], 08/09/2023 07:14:25 08/08/20 23 08/09/2023 COMP. METAB OLIC PANEL (14) A/G ratio 1.7 1.2-2. 2 Not Available [facility] ([facility]) [address] [facility], [place], [address], 08/09/2023 07:14:25 08/08/20 23 08/09/2023 COMP. METAB OLIC PANEL (14) bilirubin, total <0.2 mg/dL 0.0-1. 2 Not Available [facility] ([facility]) [address] [facility], [place], [address], 08/09/2023 07:14:25 08/08/20 23 08/09/2023 COMP. METAB OLIC PANEL (14) alkaline phosphatase 80 IU/L 44-121 Not Available [facility] ([facility]) [address] [facility], [place], [address], 08/09/2023 07:14:25 08/08/20 23 08/09/2023 COMP. METAB OLIC PANEL (14) AST (SGOT) 13 IU/L 0-40 Not Available [facility] ([facility]) [address] [facility], [place], [address], 08/09/2023 07:14:25 08/08/20 23 08/09/2023 COMP. METAB OLIC PANEL (14) ALT (SGPT) 14 IU/L 0-32 Not Available [facility] ([facility]) [address] [facility], [place], [address], 08/09/2023 07:14:25 08/08/20 23 08/09/2023 VITAM IN B12 AND FOLAT E vitamin B12 437 pg/mL 232-12 45 Not Available [facility] ([facility]) [address] [facility], [place], [address], 08/09/2023 07:14:26 08/08/20 23 08/09/2023 VITAM IN B12 AND FOLAT E folate (folic acid), serum 13.0 NG/mL >3.0 A serum folat e sandra ntrat ion of less than 3.1 ng/mL is consi dered to repre sent clini gisell defic iency . Not Available [facility] ([facility]) [address] [facility], [place], [address], 08/09/2023 07:14:26 08/08/20 23 08/09/2023 VITAM IN [...] Alicia [place]: The Natio nal [facility] Press . 2. Aiden rivera MF, Farrah dixon [place], Hillary off-F errar i NUÑEZ, et al. Evalu ation , treat ment, and preve ntion of vitam in D defic iency : an Endoc rine Socie ty clini gisell pract ice guide line. JCEM. 2010; 96(7) :1911 -30. Not Available [facility] ([facility]) [address] [facility], [place], [address], 08/09/2023 07:14:27 08/08/2008/09/2023 MAGNE SIUM magnesium 1.9 mg/dL 1.6-2. 3 Not Available [facility] ([facility]) [address] [facility], [place], [address], 08/09/2023 07:14:28 05/26/20 23 05/26/2023 PAP nap (PROC ) No observ ation record ed. [email or web address] Not Available 2022 09:46:47 Result Notes None recorded. Procedures Surgical History Date Name Laterality Status Provider Name and Address Organization Details Recorded Time 03/18/2020 Date of Last Pap Smear completed MARGARETDUSTIN MELTON [facility] & [place] 04/05/2023 13:05:37 10/30/2011 Tonsillecto my/Adenoide ctomy completed [facility] JONES MELTON [facility] [place] 04/05/2023 13:05:37 Imaging Results None recorded. Procedure [...] propionate 50 mcg/actuati on nasal spray,suspe nsion [place] 1 spray every day by intranasa l route as directed for 30 days. active Not Available Not Available No t Available cholecalcif manuela (vitamin D3) 125 mcg (5,000 unit) capsule [...] Updated DateTime 3 157.48 cm 50.1 kg/m2 114656. 31 g 97.7 [degF] 98 % 98 % 105 /min 92 mm[Hg] 66 mm[Hg] MARGARET JONES MULTANI - LPNT [facility] [place] 3 14:59:03 Date Recorded Body height Body mass index (BMI) Body weight Body temperature Oxygen saturation Oxygen saturation in Arterial blood by Pulse oximetry Heart rate Systolic blood pressure Diastolic blood pressure Provider Name and Address Organization Details Last Updated DateTime 3 157.48 cm 47.6 kg/m2 321718. 42 g 98.2 [degF] 99 % 99 % 103 /min 124 mm[Hg] 86 mm[Hg] MARGARET JONES MULTANI - LPNT [facility] [place] 3 15:58:53 Date Recorded Body height Body weight Body mass index (BMI) Body temperature Oxygen saturation Oxygen saturation in Arterial blood by Pulse oximetry Heart rate Systolic blood pressure Diastolic blood pressure Provider Name and Address Organization Details Last Updated DateTime 3 157.48 cm 150782. 72 g 49.9 kg/m2 97.7 [degF] 100 % 100 % 128 /min 100 mm[Hg] 76 mm[Hg] MARGARETBart MULTANI - LUANANT [facility] [place] 3 10:09:53 Date Recorded Body height Body mass index (BMI) Body weight Body temperature Oxygen saturation Oxygen saturation in Arterial blood by Pulse oximetry Heart rate Systolic blood pressure Diastolic blood pressure Provider Name and Address Organization Details Last Updated DateTime 3 157.48 cm 51.9 kg/m2 576646. 87 g 98 [degF] 98 % 98 % 91 /min 127 mm[Hg] 74 mm[Hg] Agnes Khalil LPNT [facility] [place] 3 08:43:53 Date Recorded Body height Body mass index (BMI) Body weight Body temperature Oxygen saturation Oxygen saturation in Arterial blood by Pulse oximetry Heart rate Systolic blood pressure Diastolic blood pressure Provider Name and Address Organization Details Last Updated DateTime 3 157.48 cm 51 kg/m2 180738. 27 g 97.5 [degF] 99 % 99 % 129 /min 124 mm[Hg] 90 mm[Hg] [facility] [place] 3 15:59:39 Social History Question Answer Notes LastModified by [employer] Details LastModified Time Tobacco Smoking Status Former Smoker MARGARET hassan, NERISSA MELTON [facility] [place] 04/05/2023 13:05:37 Do You Have An Advance [...] Functional Status Question Answer Note LastModified by [employer] ion Details LastModified Time Do you use any illicit or recreational drugs? Yes Information not available 04/05/2023 Do you or have you ever used any other forms of tobacco or nicotine? Yes [email or web address] Information not available 06/02/2023 What is your level of alcohol consumption? Occasional Information not available 04/05/2023 Do you or have you ever used smokeless tobacco? 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 Current user of electronic cigarettes [email or web address] Information not available 06/02/2023 What is your exercise level? Moderate Information not available 04/05/2023 Mental Status Question Answer Note LastModified by Organization D etails LastModified Time Do you feel stressed (tense, restless, nervous, or anxious, or unable to sleep at night)? [id number] Information not available 04/05/2023 Family History Relationship [...] SNOMED-CT Code Diagnosis ICD10 Code Diagnosis Note [id number] Unruly Bustillo in, [employer]ZZA [employer]IVER [facility]ly [facility] [address] [place] [address] 04/05/2023 13:02:12 04/05/2023 13:39:51 Adult health examination 511302662 Z00.00 Will check complete bloodwork. Will call with results.Co unseled on dietary modificati ons and healthy eating habits.Cou nseled on decreasing stress levels,Rec ommend yearly eye examsRecom mend regular dental exams/ashely rnings. Thyroid di sorder screening 689803896 Z13.29 Mixed anxi ety and depressive disorder 127881640 F41.8 Screening for malignant neoplasm of cervix 640748679 Z12.[address] James Cowart. History of ectopic pregnancie s. She is up to date on preventati ve screenings . Excessive daytime sleepiness with sleep paralysis 709952875 G47.53 Patient has a history of sleep paralysis. History of snoring. History of restless sleep patterns. Body mass index 40+ - severely obese 961033670 Z68.43 Patient is exercising . Patient is attempting to make dietary modificati ons. [id number] Unruly Bustillo in[address] [place] [address] 04/06/2023 08:02:02 04/06/2023 08:41:28 [id number] Tramaine Winkler MD [address] [place] [address] 04/26/2023 12:57:14 04/26/2023 13:15:14 Obstructive sleep apnea syndrome 00132186 G47.33 papnap...t itration to autopap 6-20 cm H2O. Obesity 711255261 E66.9 Patient aware that weight loss will improve not eliminate her need for auto PAP. [id number] Unruly Bustillo in[address] [place] [address] 06/02/2023 14:51:05 06/02/2023 15:15:39 Mixed anxiety and depressive disorder 095778839 F41.8 Patient is tolerating medication . Will refill.Danny varner see back in 1 month.Will check vitamin levels, CBC, CMP, and iron panel at that time. [id number] Unruly Bustillo in[address] [place] [address] 07/18/2023 15:54:45 07/18/2023 16:18:02 Viral upper respiratory tract infection 650468001 J06.9 Humidifier at night.Use medication as directed.O TC meds for cough.Foll ow up if no improvemen t. Iron defic iency anemia 62150993 D50.9 Patient finished her Iron supplement s.Will check levels today. Will call with results. Body mass index 30+ - obesity 410808714 Z68.42 Will start Wegovy.Danny l see back in 1 month for weight check.Will increase as tolerated. [id number] Unruly Bustillo in[address] [place] [address] 08/08/2023 09:58:51 08/08/2023 11:08:21 Tremor 29415599 R25.1 Will check lab work. Will call with results. Iron defic iency anemia 58860471 D50.9 Mixed anxi ety and depressive disorder 269649947 F41.8 Patient is reacting to the medication [...] do genetic testing at patient request today. [id number] Unruly Bustillo in[address] [place] [address] 08/23/2023 15:37:17 08/23/2023 16:37:13 Mixed anxiety and depressive disorder 399274009 F41.8 Counseled in depth on symptoms of concern and when to go to ER. at chairside. Counseled on concerns and behavior changes and when to reach out for help. Support system is intact at home.Jose Luis knight on genetic testing results.Se e patient back in 1 month.Catrina ent is tolerating the Duloxetine 60mg. Vitamin D deficiency 347 89993 E55.9 [id number] Aden Petty MD [facility] Oncology and Hematolog y [address] [facility] [address] [place] [address] 08/23/2023 08:31:40 08/23/2023 09:08:39 Iron deficiency anemia 50289898 D50.9 Labs on August 08, 2023 with magnesium at 1.9. Vitamin-D level low at 22.4. B12 437. Folic acid 13. Normal liver function testing. Normal renal function. Normal electrolyt es. White blood cell count 7.7. Red blood cell count 4.90 hemoglobin 13.2 and hematocrit 40.4. MCV 82. Platelet count 927327. Normal cell differenti al. TSH 0.9. T4 [...] response to increasing PO supplement ation. Headache 53005939 R51.9 Concern for possible migraine. Will follow-up [...] ID Guarantor Name 10/01/2023 1 [place] ([place]) [id number] Bart Wilkins [id number] 17 [id number] Leticia Vo Notes Date Note Type Note Provider Name and Address Organization Details Recorded Time 06/02/2023 text/html patient presents to clinic for medication update. She was placed inpatient at [facility] and was treated by Dr. Rankin. She states her prozac was causing hallucinations. She was started on seroquel and wellbutrin. She is tolerating well. She states she feels so much better. She does not have a follow up scheduled with Dr. Rankin. Unruly Rosen, [employer] [address], [place], [address], [facility] & [place] 06/02/2023 15:11:10 07/18/2023 text/html patient presents to clinic for follow up. She states she is tolerating her medication. No complaints. She reports some increased sinus drainage and her left ear is itchy. Denies any fever. Reports a dry cough. Denies any sore throat. Unruly Rosen APRN [address], [place], [address], [facility] [place] 07/18/2023 16:25:02 08/08/2023 text/html patient presents to clinic for an intermittent tremor. She has been titrating the Seroquel over the last week since we spoke. She denies any syncopal episodes. Denies any chest pain. Denies any thoughts of self harm or homicidal thoughts. Denies any hallucinations today. Unruly Rosen APRN [address], [place], [address], [facility] [place] 08/08/2023 14:26:50 08/23/2023 text/html patient presents to clinic for follow up. She is tolerating the Duloxetine. She denies suicidal or homicidal thoughts. She states that the tremor is completely gone. She states she sees hematology October 04. Unruly Rosen APRN [address], [place], [address], [facility] [place] 08/23/2023 16:18:32 08/23/2023 text/html 23 yo F [...] and hematocrit 40.4. MCV 82. Platelet count 666346. Normal cell differential. TSH 0.9. T4 0.96. [...] to increasing PO supplementation. Aden Petty MD [address], [place], [address], [facility] - [place] & [place] 08/23/2023 09:44:31 OBGyn Episode No OBEpisode recorded.
--- NOTE | 2025-04-10 15:30 | US_ITS ---
PROCEDURE: US OB BIOPHYSICAL PROFILE CLINICAL INDICATION: Needs 04/10/25 for LGA COMPARISON: US US OB FOLLOW UP from 01/28/2025 US US OB FOLLOW UP from 02/20/2025 US OB TRANSVAGINAL from 02/20/2025 US OB FOLLOW UP from 02/24/2025 FINDINGS: Transabdominal sonographic images of the uterus were obtained. From her established due date she is 32weeks 1day. The following parameters are obtained: Viable Fetus in the cephalic presentation with a posterior placenta grade 2. Average ultrasound age is 32weeks 4days Estimated weight 2,010g, 4 lb 7 oz Cervix measures 2.32 cm. Measurements: heart Rate = 133bpm BPD = 32weeks 6days, 63 percentile HC = 32weeks 4days, 21 percentile AC = 33weeks 3days, 82 percent FL = 31weeks 2days, 16 percent HC/AC is 1 FL/BPD is 0.73 FL/AC is 0.2 54 percentile Amniotic fluid index: 3.53cm, MVP 6.74 cm Qualitative AFV:2 Breathing movements: 2 Gross Body Movements: 2 Tone: 2 Biophysical profile score: 8 Doppler evaluation of the umbilical artery: SD ratio: 2.91-3.0 Resistive index: 0.66 No obvious anomalies evident.Kidneys, nose, lips, three-vessel cord appear normal. IMPRESSION: 1. Viable fetus in the cephalic presentation with a posterior placenta grade 1-2. 2. The amniotic fluid index is low with an PROMISE 3.53 cm, MVP 6.74 cm. 3. Biophysical profile is 8/8 with good breathing movement and movement seen. 4. SD ratio is normal 2.91-3.0. 5. Limited anatomical scan appears normal. 6. Dr. Beavers was notified of the low amniotic fluid index. She was sent to labor and delivery. Dictated by: Ashutosh Waldron MD 04/10/2025 16:35 Ashutosh Waldron MD in OV 04/10/2025 16:35
== END 2025-04-10 23:59 | disposition home or self-care (01) ==
LOC: RAD 15:18
PROVIDERS: PCP Nurse Practitioner Family; Visit Provider Obstetrics & Gynecology
DX: O36.63X0 Maternal care for excessive fetal growth, third trimester, not applicable or unspecified (principal); Z3A.32 32 weeks gestation of pregnancy
CPT/HCPCS: 76816; 76819; 76820

== ENCOUNTER 2025-04-10 16:09 | Observation (INO) | payer BC, SELFPAY ==
--- OUTSIDE RECORDS SUMMARY | 2025-04-10 16:14 | XMS_ITS | Clinical Summary ---
Author Organization [facility] Address [address] [place] [address] Care Team Providers Care Director Client Name Role Phone Stephanie Allen Primary Care Provider [phone] Allergies Active Allergy Reactions Criticality Noted Date [...] Telephone Obstetrics & Gynecology [address] [place] [address] James Cowart MD 01/29/2025 Telephone Obstetrics & Gynecology [address] [place] [address] James Cowart MD 01/22/2025 9:15 AM EDT Clinical Support Obstetrics & Gynecology [address] [place] [address] 21 weeks gestation of 01/22/2025 8:00 AM EDT Routine Obstetrics & Gynecology [address] [place] [address] James Cowart MD 21 weeks gestation of (Primary Dx); Cervical shortening in second trimester 01/22/2025 8:00 AM EDT - 01/22/2025 11:59 PM EDT Hospital Encounter [facility] Elaina OBALISHA Ultrasound [address] [place] [address] 13 weeks gestation of Discharge Disposition: Home [...] 19+ 3-dose series) 2017 [facility]-Pap Smear 2019 RDX-VGNGH-54 Vaccine ( - season) 2024 [facility]-Influenza Vaccine [...] LAB HEMATOLOGY METHOD 01/22/2025 1:52 PM EDT [facility] RBC Count 4.21 3.90 - 5.20 10*6/uL LAB HEMATOLOGY METHOD 01/22/2025 1:52 PM EDT [facility] HGB 11.2 11.2 - 15.7 g/dL LAB HEMATOLOGY METHOD 01/22/2025 1:52 PM EDT [facility] HCT 35.5 34.0 - 45.0 % LAB HEMATOLOGY METHOD 01/22/2025 1:52 PM EDT [facility] Platelet Count 260 155 - 369 10*3/uL LAB HEMATOLOGY METHOD 01/22/2025 1:52 PM EDT [facility] MCV 84 79 - 98 fL LAB HEMATOLOGY METHOD 01/22/2025 1:52 PM EDT [facility] MCH 26.6 26.0 - 32.0 pg LAB HEMATOLOGY METHOD 01/22/2025 1:52 PM EDT [facility] MCHC 31.5 30.7 - 35.5 g/dL LAB HEMATOLOGY METHOD 01/22/2025 1:52 PM EDT [facility] RDW 14.5 11.5 - 14.5 % LAB HEMATOLOGY METHOD 01/22/2025 1:52 PM EDT [facility] MPV 11.0 8.8 - 12.5 fL LAB HEMATOLOGY METHOD 01/22/2025 1:52 PM EDT [facility] nRBC 0.0 <=0.0 per 100 WBCs LAB HEMATOLOGY METHOD 01/22/2025 1:52 PM EDT [facility] Differential Type Automated LAB HEMATOLOGY METHOD 01/22/2025 1:52 PM EDT [facility] Neutrophils % 76 % LAB HEMATOLOGY METHOD 01/22/2025 1:52 PM EDT [facility] Lymphocytes % 15 % LAB HEMATOLOGY METHOD 01/22/2025 1:52 PM EDT [facility] Monocytes % 6 % LAB HEMATOLOGY METHOD 01/22/2025 1:52 PM EDT [facility] Eosinophils % 2 % LAB HEMATOLOGY METHOD 01/22/2025 1:52 PM EDT [facility] Basophils % 0 % LAB HEMATOLOGY METHOD 01/22/2025 1:52 PM EDT [facility] Immature Granulocytes % 1 % LAB HEMATOLOGY METHOD 01/22/2025 1:52 PM EDT [facility] Neutrophils Absolute 6.05 1.60 - 6.10 10*3/uL LAB HEMATOLOGY METHOD 01/22/2025 1:52 PM EDT [facility] Lymphocytes Absolute 1.21 1.20 - 3.90 10*3/uL LAB HEMATOLOGY METHOD 01/22/2025 1:52 PM EDT [facility] Monocytes Absolute 0.46 0.30 - 0.90 10*3/uL LAB HEMATOLOGY METHOD 01/22/2025 1:52 PM EDT [facility] Eosinophils Absolute 0.16 0.00 - 0.50 10*3/uL LAB HEMATOLOGY METHOD 01/22/2025 1:52 PM EDT [facility] Basophils Absolute 0.03 0.00 - 0.10 10*3/uL LAB HEMATOLOGY METHOD 01/22/2025 1:52 PM EDT [facility] Immature Granulocytes Absolute 0.07(H) 0.00 - 0.06 10*3/uL LAB HEMATOLOGY METHOD 01/22/2025 1:52 PM EDT [facility] Blood Venous blood specimen / Unknown Venipuncture / Unknown 01/22/2025 9:20 AM EDT 01/22/2025 1:14 PM EDT Narrative [facility] - 01/22/2025 1:52 PM EDT Therapeutic decision making should be based on absolute values, rather than percentages. us James Cowart MD LAB BLOOD ORDERABLES Final Resu lt [facility] [address] [place] [address] * Type and Screen (01/22/2025 9:20 AM [...] TEST ORDERABLES Final Result Performing Organization Address City/[facility]/ZIP Co de Phone Number BLOOD BANK [address] [place] [address], [place] * TSH (01/22/2025 9:20 AM EDT) Thyroid Stimulating Hormone, Plasma 1.65 0.40 - 4.20 uIU/mL 01/22/2025 2:00 PM EDT [facility] Blood Venous blood specimen / Unknown Venipuncture / Unknown 01/22/2025 9:20 AM EDT 01/22/2025 1:14 PM EDT Narrative [facility] - 01/22/2025 2:00 PM EDT Trimester Specific Ranges TSH ( IU/mL) 1st Trimester 0.1 - 3.0 2nd Trimester 0.19 - 4.06 3rd Trimester 0.3 - 3.7 Result Santino Cowart MD LAB BLOOD ORDERABLES Final Resu lt [facility] [address] [place] [address] * OB US 14+ Weeks Anatomy Scan (01/22/2025 9:14 AM EDT) Anatomical Region Laterality Modality Body Ultrasound 01/22/2025 8:05 AM EDT Impressions 01/23/2025 8:23 PM EDT The OB Ultrasound you requested has been resulted. Please navigate to the Imaging tab in [employer] for review. This message has been generated by the interface. Narrative Procedure Note Agnes Hameed MD - 01/23/2025 IMPRESSION: The OB Ultrasound you requested has been resulted. Please navigate to theImaging tab in [employer] for review. This message has been generated by theinterface. Result Santino Cowart MD IMG OB US PROCEDURES Final Resu lt * HIV 1 & 2 Antibody/Antigen Screen (11/01/2024 10:24 AM EST) Pathologist [facility] [place] HIV 1 & 2 Antibody/Antigen Screen Non Reactive Non Reactive 11/01/2024 1:54 PM EST [facility] Comment:Screening for HIV 1 & 2 antibodies, and P24 antigen is NONREACTIVE. No confirmatory testing is required. Blood Venous blood specimen / Unknown Venipuncture / Unknown 11/01/2024 10:24 AM EST 11/01/2024 12:52 PM EST Result Santino Cowart MD LAB BLOOD ORDERABLES Final Resu lt Performing Organization Address City/[facility]/ZIP Co de Phone Number [facility] [address] [place] [address] * Hepatitis C Antibody w/Reflex to HCV Quant PCR (11/01/2024 10:24 AM EST) Hepatitis C Antibody Negative Negative 11/01/2024 1:31 PM EST [facility] Blood Venous blood specimen / Unknown Venipuncture / Unknown 11/01/2024 10:24 AM EST 11/01/2024 12:52 PM EST Result Santino Cowart MD LAB BLOOD ORDERABLES Final Resu lt Performing Organization Address City/[facility]/ZIP Co de Phone Number [facility] [address] [place] [address] from Last 3 Months or Most Recently Relevant to Health Maintenance Additional Health Concerns Active Problems Noted Date Diagnosed Date CPM S24 PP LABOR (OBSTETRICS) 11/19/2024 Insurance ANTH Care Teams Director Client Relationship Specialty Start Date End Date Stephanie Allen PA [address] [place] [address] PCP - General 08/30/24
--- OUTSIDE RECORDS SUMMARY | 2025-04-10 16:14 | XMS_ITS | Encounter Summary ---
Author Organization Healthcare Address [address] [place] [address] Care Team Providers Care Bolt Man Name Role Phone Stephanie Allen Primary Care Provider [phone] Encounter Details Date Type Department Care Team (Late st Contact Info) Description 01/29/2025 Telephone Obstetrics & Gynecology [address] [place] [address] James Cowart MD [address] [place] [address] Social History Tobacco Use Types [...] is wanting to do a JAZLYN to [facility] with Dr. Mahogany Beavers. Pt is asking that her records please be faxed to that hospital. Fax for their office is [phone] Attn: Dr. Bart Beavers. Please cx the u/s apts that are left on schedule, I have cx the OB apts Best contact number: [phone] (mobile) Optimal time of day to reach [...] will receive notification of the communication/outcome via [employer]. documented in this encounter Plan of Treatment [...] documented as of this encounter Care Teams Bolt Man Relationship Specialty Start Date End Date Stephanie Allen PA [address] [place] [address] PCP - General 08/30/24 documented as of this encounter
--- OUTSIDE RECORDS SUMMARY | 2025-04-10 16:14 | XMS_ITS | Clinical Summary ---
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
--- OUTSIDE RECORDS SUMMARY | 2025-04-10 16:14 | XMS_ITS | Referral Summary ---
Author Organization 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
--- OUTSIDE RECORDS SUMMARY | 2025-04-10 16:14 | XMS_ITS | Encounter Summary ---
Author Organization Healthcare Address [address] [place] [address] Care Team Providers Care Computer Laboratory Technician Name Role Phone None, None Primary Care Provider [phone] Stephanie Allen Primary Care Provider [phone] Encounter Details Date Type Department Care Team (Late st Contact Info) Description 10/12/2022 Outside Procedure External Location [address] [place] [address] James Cowart MD [address] [place] [address] Social History Tobacco Use Types [...] AM EST Narrative 10/12/2022 8:21 [place] [address] Name: LETICIA PENNINGTON Exam Date: 10/12/2022 : 2000 Age 22 Gender: F Physician: JAMES COWART Facility: [facility] Facility HSV: Outpatient Exam: HYSTEROSALPINGOGRAM FLUOROSCOPY TIME [...] Thank you for referring LETICIA PENNINGTON to [facility]. Legally authenticated by POPE ANA Baptiste 2022-10-12 08:09:41 Procedure Note Provider, [facility] [place] - 10/12/2022 [place] [address] Name: LETICIA PENNINGTON Exam Date: 10/12/2022 : 2000 Age 22 Gender: F Physician: JAMES COWART Facility: [facility] Facility HSV: Outpatient Exam: HYSTEROSALPINGOGRAM FLUOROSCOPY TIME [...] Thank you for referring LETICIA PENNINGTON to [facility]. Legally authenticated by POPE ANA Baptiste 2022-10-12 08:09:41 James Cowart MD IMG FLUOROSCOPY PROCEDURES Gayle l Result documented in this encounter Visit Diagnoses Not on filedocumented in this encounter Care Teams Computer Laboratory Technician Relationship Specialty Start Date End Date None, None [address] [place] [address] PCP - General NONE FOUND 09/05/22 05/23/24 Stephanie Allen PA [address] [place] [address] PCP - General 08/30/24 documented as of this encounter
--- OUTSIDE RECORDS SUMMARY | 2025-04-10 16:14 | XMS_ITS | Encounter Summary ---
Author Organization Healthcare Address [address] [place] [address] Care Team Providers Care Supervisor Covering And Lining Name Role Phone Stephanie Allen Primary Care Provider Encounter Details Date Type Department Care Team (Late st Contact Info) Description 02/21/2025 Telephone Obstetrics & Gynecology [address] [place] [address] James Cowart MD [address] [place] [address] Social History Tobacco Use Types [...] pt appt no longer needed- transferring to [facility] documented in this encounter Plan of Treatment [...] documented as of this encounter Care Teams Supervisor Covering And Lining Relationship Specialty Start Date End Date Stephanie Allen PA [address] [place] [address] PCP - General 08/30/24 documented as of this encounter
[2025-04-10 16:15] VITALS: BMI 56.3
--- NOTE | 2025-04-10 17:35 | EXP.HP ---
History of Present Illness *Admission Date: 04/10/25 *Reason for visit:: low PROMISE *History of present illness: Leticia is a 24 yo that was having a growh and BPP at 32w1d and was admitted for not feeling well, feeling slightly dizzy and a questionable low PROMISE. PROMISE was 3, but MVP was 6. She enodrses good FM. denies VB, LOF or CTX PFSH PFSH Disclaimer: The information contained in this section may have been updated after the patient was seen, as this information can be updated by other users. 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 and not yet delivered in second trimester Viral upper respiratory infection Anemia Depression Anxiety Surgical History History of tonsillectomy Social History Smoking Status: Former smoker tobacco type: e-cigarettes smoking status stop date: 08/28/2024 alcohol intake: never current occupational status: employed Travel in the last 8 weeks?: None household members: spouse Have you lived/traveled outside [place] in past 30 days?: No Contact w/someone who lives/traveled outside US past 30 days?: No Exposure to someone with infectious disease in past 14 days?: No Do you have a fever (greater than 100.4 F or 38 C)?: No Have you tested positive for COVID-19?: No Exposed to someone with COVID-19 in past 14 days?: No Do you have a sore throat?: No Do you have a cough?: No Do you have any weakness?: No Do you have any diarrhea?: No Are you experiencing any unusual bleeding?: No Do you have any muscle aches/pain?: No Do you have any abdominal pain?: No Are you experiencing loss of taste or smell?: No Other 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 Have you received the Flu Vaccine for this season: No Have you received the Pneumonia Vaccine: No Review of Systems Review of Systems Review of systems (narrative): Review of Systems Constitutional: Denies fever, chills, and sweats Eyes: Denies vision change/ pain Respiratory: Denies cough and shortness of breath Cardiovascular: Denies chest pain and lightheadedness Gastrointestinal: denies abdominal pain. Denies nausea, vomiting. Genitourinary: Denies dysuria and incontinence Musculoskeletal: Denies shoulder pain and back pain Neurological: Denies change in speech or headaches Meds Home Medications and Allergies Home Medications ?Medication ?Instructions ?Recorded ?Confirmed ?Type vitamin no.167-folic acid 1 tab PO DAILY 12/19/24 04/11/25 History 400 mcg-dha 25 mg chewable tablet (One-A-Day ) bupropion HCl 150 mg 24 hr tablet, 150 mg PO DAILY 01/14/25 04/10/25 History extended release diltiazem HCl 120 mg 120 mg PO DAILY 03/26/25 04/11/25 History capsule,extended release 24 hr progesterone micronized 200 mg 200 mg vaginal HS 04/11/25 04/11/25 History capsule (Prometrium) New Prescriptions to Start Prescriptions: Allergies Allergy/AdvReac Type Severity Reaction Status Date / Time propranolol Allergy Unknown Rash Verified 03/28/25 09:11 Exam Data for Last 24 hours I & O for Last 24 hours: Intake & Output 04/07/25 04/08/25 04/09/25 04/10/25 23:59 23:59 23:59 23:59 Weight 308 lb *Routine HEENT Exam Head: Present normocephalic and atraumatic Eye: Present EOMI, PERRL and normal accommodation; Absent conjunctival icterus, scleral injection, nystagmus or exophthalmos ENT: Present mucous membranes moist *Routine Respiratory Exam Respiratory: Present CTA bilaterally, normal respiratory effort, able to speak in complete sentences and symmetric chest movement; Absent accessory muscle use, decreased breath sounds, rales, respiratory distress, wheezes, distant breath sounds or diminished air movement *Routine Cardiovascular Exam Cardiovascular: Present RRR, Normal S1 and Normal S2; Absent murmur or gallop *Routine Abdominal Exam Abdominal: Present soft and normoactive bowel sounds; Absent tenderness, distended, rebound or guarding *Routine Rectal Exam Rectal:: deferred *Routine Genitalia Exam Genitalia:: normal female Assessment and Plan *Assessment and plan (1) Progressive shortening of cervix: Status: Acute Category: Medical Code(s): N88.3 - Incompetence of cervix uteri (2) Obesity, morbid, BMI 50 or higher: Status: Acute Category: Medical Code(s): E66.01 - Morbid (severe) obesity due to excess calories (3) Syncope: Status: Acute Qualifiers: Syncope type: unspecified Qualified Code(s): R55 - Syncope and collapse Category: Medical Code(s): R55 - Syncope and collapse (4) Dizziness: Status: Acute Category: Medical Code(s): R42 - Dizziness and giddiness (5) : Status: Acute Qualifiers: Weeks of gestation: 18 weeks Qualified Code(s): Z3A.18 - 18 weeks gestation of Category: Medical Code(s): Z34.90 - Encounter for supervision of normal , unspecified, unspecified trimester (6) Oligohydramnios: Status: Acute Category: Medical Code(s): O41.00X0 - Oligohydramnios, unspecified trimester, not applicable or unspecified Plan Admit NST every shift Monitor vitals IV banana bag followed by continuous LR overnight Repeat PROMISE in the morning
[2025-04-10 17:39] LABS: Basophils % 0.3 % (0.1-2.0); Eosinophils # 0.2 Kmm3 (0.0-0.4); Eosinophils % 1.8 % (0.1-12.0); Hematocrit 32.3 % (37.0-47.0); Hemoglobin 10.2 g/dL (12.2-16.2); Immature Granulocytes # 0.11 10^3uL; Immature Granulocytes % 1.2 %; Lymphocytes # 1.9 K/mm3 (0.7-4.5); Lymphocytes % 20.6 % (10-50); Mean Corpuscular HGB Conc 31.6 g/dL (31.8-35.4); Mean Corpuscular Volume 82.4 fl (81-99); Mean Platelet Volume 10.3 fl (7.4-10.4); Monocytes # 0.6 K/mm3 (0.1-1.0); Monocytes % 6.8 % (1.7-9.3); Neutrophils # 6.3 K/mm3 (1.8-7.8); Neutrophils % 69.3 % (37.0-80.0); Nucleated Red Blood Cells # 0 10^3/uL; Nucleated Red Blood Cells % 0 %; Platelet Count 279 K/mm3 (142-424); Red Blood Count 3.92 M/mm3 (4.20-5.40); Red Cell Distribution Width 15.3 % (11.5-17.5); Red Cell Distribution Width-SD 45.6 fL
[2025-04-10] MEDS: MVI, ADULT NO.1 WITH VIT K 10 ML, THIAMINE HCL 100 MG, MAGNESIUM SULFATE 2 GM in LACTAT... 125 ML IV (17:43)
[2025-04-10 17:50] VITALS: BP 117/62; PULSE 88; RESP 17; TEMP 36.8; O2SAT 97; BMI 56.3
[2025-04-10 18:32] LABS: Albumin Level 3.5 g/dl (3.5-5.0); Chloride 108 mmol/L (98-107); Sodium 135 mmol/L (136-145)
[2025-04-10 18:33] LABS: Potassium 3.7 mmoL/L (3.5-5.1)
[2025-04-10 18:35] LABS: Alanine Aminotransferase 12 U/L (12-78); Anion Gap 6.7 mEq/L (5-15); Aspartate Amino Transferase 22 U/L (14-36); Blood Urea Nitrogen 14 mg/dl (7-17); Carbon Dioxide 24 mmol/L (22.0-30.0); Creatinine Clearance Estimated 96 mL/min (50-200); Estimated Glomerular Filt Rate 101 ml/min (>60); GFR (African American) 122 ML/MIN (>60)
[2025-04-10 18:36] LABS: Albumin/Globulin Ratio 1.2 (1.1-1.8); Alkaline Phosphatase 94 U/L (38-126); Bilirubin,Total 0.2 mg/dl (0.2-1.3); Calcium 10.2 mg/dl (8.4-10.2); Glucose 106 mg/dl (74-100); Total Protein,Serum 6.5 g/dl (6.3-8.2)
[2025-04-10 18:39] LABS: Magnesium 1.6 mg/dl (1.6-2.3)
[2025-04-10 19:14] LABS: Uric Acid 5.9 mg/dl (2.5-6.2)
--- NOTE | 2025-04-11 | US_ITS ---
PROCEDURE: US OB FOLLOW UP CLINICAL INDICATION: COMPARISON: US US OB FOLLOW UP from 01/28/2025 US US OB FOLLOW UP from 02/20/2025 US US OB TRANSVAGINAL from 02/20/2025 US US OB FOLLOW UP from 02/24/2025 US US OB BIOPHYSICAL PROFILE from 04/10/2025 FINDINGS: Transabdominal sonographic images of the pelvis were obtained. The following parameters are obtained: From her established due date she is 32weeks 2days Viable fetus in the cephalic presentation with a posterior placenta grade 1. The cervix measures 2.38 cm. heart rate: 126bpm bpm. Amniotic fluid index: 10.78cm, MVP 4.11 cm No obvious anomalies evident. Stomach, bladder, three-vessel cord, four chamber heart appear normal. IMPRESSION: 1. Viable fetus in the cephalic presentation with a posterior placenta grade 1. 2. The fluid is within normal limits with an amniotic fluid index 10.78 cm, MVP 4.11 cm. 3. breathing movement is seen. The fetus was active. 4. Limited anatomical scan appears normal. Dictated by: Ashutosh Waldron MD 04/12/2025 04:03 Ashutosh Waldron MD in [facility] 04/12/2025 04:03
[2025-04-11] MEDS: ACETAMINOPHEN 325MG TAB 650 MG PO (00:20)
[2025-04-11] MEDS: LACTATED RINGERS 1000ML 1,000 ML 125 ML IV (00:31)
--- NOTE | 2025-04-11 07:49 | P.CONPHA_ITS ---
Pharmacy Intervention Comments: MEDICATION RECONCILIATION COMPLETED ON PATIENT USING EXTERNAL FILL HISTORY FROM PHARMACY AND LIST FROM CONTROL PANEL OPERATOR CRUDE UNIT OFFICE. -VALDO RODRÍGUEZD
--- NOTE | 2025-04-11 07:49 | HMH.PHAINT1 ---
Pharmacy Intervention Comments: MEDICATION RECONCILIATION COMPLETED ON PATIENT USING EXTERNAL FILL HISTORY FROM PHARMACY AND LIST FROM SOCIAL PROBLEMS SPECIALIST OFFICE. -VALDO RODRÍGUEZD
--- NOTE | 2025-04-11 13:06 | EXP.DC.SUM ---
General Admission date:: 04/10/25 Discharge date: 04/11/25 HPI HPI HPI: Leticia is a 24 yo that was having a growh and BPP at 32w1d and was admitted for not feeling well, feeling slightly dizzy and a questionable low PROMISE. PROMISE was 3, but MVP was 6. She enodrses good FM. denies VB, LOF or CTX Hospital Course Hospital Course Hospital Course: Leticia was admitted overnight and given fluids secondary to a questionable low PROMISE. BPP was 8 out of 8 yesterday. PROMISE today: 10.78, MVP: 4.11 cm. She received fluids. Denies any dizziness, lightheadedness, or syncopal feelings today. Desires discharge home. Endorses good movement Exam Data for Last 24 hours Vital signs and Labs for Last 24 Hours: Temp Pulse Resp BP Pulse Ox O2 Del Method 98.2 F 88 17 117/62 97 Room Air 04/10/25 17:50 04/10/25 17:50 04/10/25 17:50 04/10/25 17:50 04/10/25 17:50 04/10/25 17:50 Laboratory Results - last 24 hr 04/10/25 17:28: WBC 9.0, RBC 3.92 L, Hgb 10.2 L, Hct 32.3 L, MCV 82.4, MCH 26.0 L, MCHC 31.6 L, RDW 15.3, Plt Count 279, MPV 10.3, Neut % (Auto) 69.3, Lymph % (Auto) 20.6, [place] % (Auto) 6.8, Eos % (Auto) 1.8, Baso % (Auto) 0.3, Neut # (Auto) 6.3, Lymph # (Auto) 1.9, [place] # (Auto) 0.6, Eos # (Auto) 0.2, Baso # (Auto) 0.0, Sodium 135 L, Potassium 3.7, Chloride 108 H, Carbon Dioxide 24, Anion Gap 6.7, BUN 14, Creatinine 0.70, Estimated Creat Clear 96, Estimated GFR 101, Est GFR ( Amer) 122, Glucose 106 H, Uric Acid 5.9, Calcium 10.2, Magnesium 1.6, Total Bilirubin 0.2, AST 22, ALT 12, Alkaline Phosphatase 94, Total Protein 6.5, Albumin 3.5, Globulin 3.0, Albumin/Globulin Ratio 1.2 I & O for Last 24 hours: Intake & Output 04/08/25 04/09/25 04/10/25 04/11/25 23:59 23:59 23:59 23:59 Weight 308 lb Constitutional Constitutional: no acute distress *Routine HEENT Exam Head: Present normocephalic Eye: Present EOMI and PERRL ENT: Present mucous membranes moist *Routine Neck Exam Neck: Present supple; Absent lymphadenopathy *Routine Respiratory Exam Respiratory: Present CTA bilaterally *Routine Cardiovascular Exam Cardiovascular: Present RRR *Routine Abdominal Exam Abdominal: Present soft and normoactive bowel sounds; Absent tenderness *Routine Extremities Exam Extremities: Absent cyanosis, clubbing or edema *Routine Skin Exam Skin: Present warm; Absent rash *Routine Neurological Exam Neurological: Present alert and oriented X3 Results Data Completed and Pending Labs on day of discharge: Labs from last 24 hours 04/10/25 17:28 WBC 9.0 RBC 3.92 L Hgb 10.2 L Hct 32.3 L MCV 82.4 MCH 26.0 L MCHC 31.6 L RDW 15.3 Plt Count 279 MPV 10.3 Neut % (Auto) 69.3 Lymph % (Auto) 20.6 [place] % (Auto) 6.8 Eos % (Auto) 1.8 Baso % (Auto) 0.3 Neut # (Auto) 6.3 Lymph # (Auto) 1.9 [place] # (Auto) 0.6 Eos # (Auto) 0.2 Baso # (Auto) 0.0 Sodium 135 L Potassium 3.7 Chloride 108 H Carbon Dioxide 24 Anion Gap 6.7 BUN 14 Creatinine 0.70 Estimated Creat Clear 96 Estimated GFR 101 Est GFR ( Amer) 122 Glucose 106 H Uric Acid 5.9 Calcium 10.2 Magnesium 1.6 Total Bilirubin 0.2 AST 22 ALT 12 Alkaline Phosphatase 94 Total Protein 6.5 Albumin 3.5 Globulin 3.0 Albumin/Globulin Ratio 1.2 DS: Diagnosis Discharge Diagnosis (1) Progressive shortening of cervix: Status: Acute Code(s): N88.3 - Incompetence of cervix uteri (2) Obesity, morbid, BMI 50 or higher: Status: Acute Code(s): E66.01 - Morbid (severe) obesity due to excess calories (3) Syncope: Status: Acute Code(s): R55 - Syncope and collapse Qualifiers: Syncope type: unspecified Qualified Code(s): R55 - Syncope and collapse (4) Dizziness: Status: Acute Code(s): R42 - Dizziness and giddiness (5) : Status: Acute Code(s): Z34.90 - Encounter for supervision of normal , unspecified, unspecified trimester Qualifiers: Weeks of gestation: 18 weeks Qualified Code(s): Z3A.18 - 18 weeks gestation of (6) Oligohydramnios: Status: Acute Code(s): O41.00X0 - Oligohydramnios, unspecified trimester, not applicable or unspecified Meds Home Medications and Allergies Home Medications ?Medication ?Instructions ?Recorded ?Confirmed ?Type vitamin no.167-folic acid 1 tab PO DAILY 12/19/24 04/11/25 History 400 mcg-dha 25 mg chewable tablet (One-A-Day ) bupropion HCl 150 mg 24 hr tablet, 150 mg PO DAILY 01/14/25 04/10/25 History extended release diltiazem HCl 120 mg 120 mg PO DAILY 03/26/25 04/11/25 History capsule,extended release 24 hr progesterone micronized 200 mg 200 mg vaginal HS 04/11/25 04/11/25 History capsule (Prometrium) New Prescriptions to Start Prescriptions: Allergies Allergy/AdvReac Type Severity Reaction Status Date / Time propranolol Allergy Unknown Rash Verified 03/28/25 09:11 Discharge Plan Disposition Patient Disposition: Home, Self-Care Discharge Order Discharge Orders: Discharge Order (Routine); Ordered 04/11/25 Ordered By: Mahogany Beavers Follow up Plan Follow up with: Mahogany Beavers DO [Staff Physician, [employer]] - Enter time for follow up Prescriptions/Medication Reconciliation: Continued One-A-Day 400 mcg- 25 mg tablet,chewable 1 tab PO DAILY diltiazem HCl 120 mg capsule,extended release 24hr 120 mg PO DAILY Patient Comments: TAKE ONE CAPSULE BY MOUTH ONCE A DAY bupropion HCl 150 mg tablet extended release 24 hr 150 mg PO DAILY progesterone micronized [Prometrium] 200 mg capsule 200 mg vaginal HS Problem Reconciliation Problems Reviewed?: Yes Patient Discharge Instructions ACTIVITY: Continue current activity DIET: regular diet Print Language: Turkish Providers Primary Care Provider: Denver Browning Admit Provider: Mahogany Beavers Attending Provider: Mahogany Beavers
== END 2025-04-11 13:30 | disposition home or self-care (01) ==
PROVIDERS: Admitting Provider Obstetrics & Gynecology; PCP Nurse Practitioner Family; Visit Provider Obstetrics & Gynecology
DX: O26.873 Cervical shortening, third trimester (principal); O34.33 Maternal care for cervical incompetence, third trimester; O41.03X0 Oligohydramnios, third trimester, not applicable or unspecified; O99.213 Obesity complicating pregnancy, third trimester; E66.01 Morbid (severe) obesity due to excess calories; O99.891 Other specified diseases and conditions complicating pregnancy; R55 Syncope and collapse; R42 Dizziness and giddiness; Z3A.32 32 weeks gestation of pregnancy; Z87.891 Personal history of nicotine dependence; Z79.890 Hormone replacement therapy; Z79.899 Other long term (current) drug therapy
CPT/HCPCS: 96360; 96361; 59025; 76816; 80053; 83735; 84550; 85025; G0378; J3411; J3475; J7120

== ENCOUNTER 2025-04-22 09:50 | Outpatient (CLI) | payer BC, SELFPAY ==
--- OUTSIDE RECORDS SUMMARY | 2025-04-22 09:54 | XMS_ITS | Data Portability ---
Author Organization [facility] & [place] Address [address] [place] [id number] Care Team Providers Care Field Advisor Name Role Phone UNRULY ROSEN Primary Care Provider TRAMAINE WINKLER Primary Care Provider Assessment No assessment recorded. Plan of Treatment Reminders Order Date Submit Date Provider Last Modified By Organization Details Last Modified Time Details Appointments None recorded. Lab CBC w/ auto diff 2022 023 [email or web address] 6 [facility], [address] [place], [address], 3 08:47:10 ferritin, serum or plasma 2022 023 [email or web address] 6 [facility], [address] [place], [address], 3 08:47:10 iron + total iron-bindin g capacity (TIBC), serum 2022 023 [email or web address] 6 [facility], [address] [place], [address], 3 08:47:10 CMP, serum or plasma 2022 023 [email or web address] 6 [facility], [address] [place], [address], 3 08:47:10 CBC w/ auto diff 2022 023 MIESHA [facility], [address], [address], [place], [address], 3 07:14:24 vitamin D, 25-hydroxy, total, serum 2022 023 MIESHA [facility], [address], [address], [place], [address], 3 07:14:27 vitamin B12 + folate, serum or blood 2022 023 MIESHA [facility], [address], [address], [place], [address], 3 07:14:26 magnesium, serum or plasma 2022 023 MIESHA [facility], [address], [address], [place], [address], 3 07:14:28 TSH + free T4, serum 2022 023 MIESHA [facility], [address], [address], [place], [address], 3 07:14:23 CMP, serum or plasma 2022 023 MIESHA [facility], [address], [address], [place], [address], 3 07:14:25 iron + TIBC + ferritin, serum 2022 023 MIESHA [facility], [address], [address], [place], [address], 3 07:14:21 iron + TIBC + ferritin, serum 2022 023 MIESHA [facility], [address], [address], [place], [address], 3 08:21:13 CBC w/ auto diff 2022 023 VERONA [facility], [address], [facility] [address], [place], [address], 3 08:21:13 CMP, serum or plasma 2022 023 VERONA [facility], [address], [facility] [address], [place], [address], 3 08:21:15 Referral behavioral health referral 2022 023 [email or web address] 3 [facility], [facility]0 [facility], [address], [place], [address], 3 08:01:02 Procedures None recorded. Surgeries None recorded. Imaging None recorded. Medication Orders Vitamin D3 125 mcg (5,000 unit) tablet 2022 023 [facility], [address] [place] [address], [id number], 3 16:18:04 duloxetine 60 mg capsule,del ayed release 2022 023 [email or web address] 2 [facility], [address] [place] [address], [id number], 3 14:25:59 Wegovy 0.25 mg/0.5 mL subcutaneou s pen injector [email or web address] [facility] [place], [address], 3 08:44:47 Flonase Allergy Relief 50 mcg/actuati on nasal spray,suspe nsion [email or web address] [facility], [address] [place], [address], 3 16:23:10 Zyrtec 10 mg tablet [address] [email or web address] [id number] [facility], [address] [place], [address], 3 08:44:34 Wellbutrin SR 150 mg tablet, 12 hr sustained-r elease [address] [facility], [address] [place], [address], 3 08:44:29 Seroquel 100 mg tablet [address] [email or web address] [id number] [facility], [address] [place], [address], 3 08:44:54 Patient TargetsNo targets recorded. Patient InstructionsNo instructions recorded. Reason for Referral Behavioral Health Referral f or Mixed anxiety and depressive disorder Referring Physician: Unruly Rosen, Infectious Disease, Encounter Date: 08/08/2023 Results Created Date Observation Date Name Description Value Unit Range Abnormal Flag Note LastModifiedBy Organization Detail LastModifiedTime 07/18/2007/19/2023 FE+TI BC+FE R iron bind.cap.(TI BC) 427 ug/dL 250-45 0 Not Available [facility] ([facility] [place] [facility]) [address] [place], [address], 07/19/2023 08:21:12 07/18/20 23 07/19/2023 FE+TI BC+FE R UIBC 396 ug/dL 131-42 5 Not Available [facility] ([facility] [place] [facility]) [address] [place], [address], 07/19/2023 08:21:12 07/18/20 23 07/19/2023 FE+TI BC+FE R iron 31 ug/dL 27-159 Not Available [facility] ([facility] [place] [facility]) [address] [place], [address], 07/19/2023 08:21:12 07/18/20 23 07/19/2023 FE+TI BC+FE R iron saturation 7 % 15-55 alert low Not Available [facility] ([facility] [place] [facility]) [address] [place], [address], 07/19/2023 08:21:12 07/18/20 23 07/19/2023 FE+TI BC+FE R ferritin 61 NG/mL 15-150 Not Available [facility] ([facility] [place] [facility]) [address] [place], [address], 07/19/2023 08:21:12 07/18/20 23 07/19/2023 CBC WITH DIFFE RENTI AL/PL ATELE T WBC 9.7 x10e3 /uL 3.4-10 .8 Not Available [facility] ([facility] [place] [facility]) [address] [place], [address], 07/19/2023 08:21:13 07/18/20 23 07/19/2023 CBC WITH DIFFE RENTI AL/PL ATELE T RBC 4.95 x10e6 /uL 3.77-5 .28 Not Available [facility] ([facility] [place] [facility]) [address] [place], [address], 07/19/2023 08:21:13 07/18/2007/19/2023 CBC WITH DIFFE RENTI AL/PL ATELE T hemoglobin 13.1 g/dL 11.1-1 5.9 Not Available [facility] ([facility] [place] [facility]) [address] [place], [address], 07/19/2023 08:21:13 07/18/20 23 07/19/2023 CBC WITH DIFFE RENTI AL/PL ATELE T hematocrit 40.6 % 34.0-4 6.6 Not Available [facility] ([facility] [place] [facility]) [address] [place], [address], 07/19/2023 08:21:13 07/18/20 23 07/19/2023 CBC WITH DIFFE RENTI AL/PL ATELE T MCV 82 fL 79-97 Not Available [facility] ([facility] [place] [facility]) [address] [facility], [place], [address], 07/19/2023 08:21:13 07/18/20 23 07/19/2023 CBC WITH DIFFE RENTI AL/PL ATELE T MCH 26.5 pg 26.6-3 3.0 below low normal Not Available [facility] ([facility] [place] [facility]) [address] [facility], [place], [address], 07/19/2023 08:21:13 07/18/20 23 07/19/2023 CBC WITH DIFFE RENTI AL/PL ATELE T MCHC 32.3 g/dL 31.5-3 5.7 Not Available [facility] ([facility] [place] [facility]) [address] [facility], [place], [address], 07/19/2023 08:21:13 07/18/20 23 07/19/2023 CBC WITH DIFFE RENTI AL/PL ATELE T RDW 13.1 % 11.7-1 5.4 Not Available [facility] ([facility] [place] [facility]) [address] [facility], [place], [address], 07/19/2023 08:21:13 07/18/20 23 07/19/2023 CBC WITH DIFFE RENTI AL/PL ATELE T platelets 287 x10e3 /uL 150-45 0 Not Available [facility] ([facility] [place] [facility]) [address] [place], [address], 07/19/2023 08:21:13 07/18/20 23 07/19/2023 CBC WITH DIFFE RENTI AL/PL ATELE T neutrophils 65 % not estab. Not Available [facility] ([facility] [place] [facility]) [address] [place], [address], 07/19/2023 08:21:13 07/18/20 23 07/19/2023 CBC WITH DIFFE RENTI AL/PL ATELE T lymphs 24 % not estab. Not Available [facility] ([facility] [place] [facility]) [address] [facility], [place], [address], 07/19/2023 08:21:13 07/18/20 23 07/19/2023 CBC WITH DIFFE RENTI AL/PL ATELE T monocytes 7 % not estab. Not Available [facility] ([facility] [place] [facility]) [address] [facility], [place], [address], 07/19/2023 08:21:13 07/18/20 23 07/19/2023 CBC WITH DIFFE RENTI AL/PL ATELE T eos 3 % not estab. Not Available [facility] ([facility] [place] [facility]) [address] [facility], [place], [address], 07/19/2023 08:21:13 07/18/20 23 07/19/2023 CBC WITH DIFFE RENTI AL/PL ATELE T basos 0 % not estab. Not Available [facility] ([facility] [place] [facility]) [address] [place], [address], 07/19/2023 08:21:13 07/18/20 23 07/19/2023 CBC WITH DIFFE RENTI AL/PL ATELE T immature cells EXPLOSIVE OPERATOR FUSE Not Available [facility] ([facility] [place] [facility]) [address] [place], [address], 07/19/2023 08:21:13 07/18/20 23 07/19/2023 CBC WITH DIFFE RENTI AL/PL ATELE T neutrophils (absolute) 6.4 x10e3 /uL 1.4-7. 0 Not Available [facility] ([facility] [place] [facility]) [address] [place], [address], 07/19/2023 08:21:13 07/18/20 23 07/19/2023 CBC WITH DIFFE RENTI AL/PL ATELE T lymphs (absolute) 2.3 x10e3 /uL 0.7-3. 1 Not Available [facility] ([facility] [place] [facility]) [address] [facility], [place], [address], 07/19/2023 08:21:13 07/18/20 23 07/19/2023 CBC WITH DIFFE RENTI AL/PL ATELE T monocytes(ab solute) 0.6 x10e3 /uL 0.1-0. 9 Not Available [facility] ([facility] [place] [facility]) [address] [facility], [place], [address], 07/19/2023 08:21:13 07/18/20 23 07/19/2023 CBC WITH DIFFE RENTI AL/PL ATELE T eos (absolute) 0.3 x10e3 /uL 0.0-0. 4 Not Available [facility] ([facility] [place] [facility]) [address] [facility], [place], [address], 07/19/2023 08:21:13 07/18/20 23 07/19/2023 CBC WITH DIFFE RENTI AL/PL ATELE T baso (absolute) 0.0 x10e3 /uL 0.0-0. 2 Not Available [facility] ([facility] [place] [facility]) [address] [facility], [place], [address], 07/19/2023 08:21:13 07/18/20 23 07/19/2023 CBC WITH DIFFE RENTI AL/PL ATELE T immature granulocytes 1 % not estab. Not Available [facility] ([facility] [place] [facility]) [address] [facility], [place], [address], 07/19/2023 08:21:13 07/18/20 23 07/19/2023 CBC WITH DIFFE RENTI AL/PL ATELE T immature grans (abs) 0.1 x10e3 /uL 0.0-0. 1 Not Available [facility] ([facility] [place] [facility]) [address] [facility], [place], [address], 07/19/2023 08:21:13 07/18/20 23 07/19/2023 CBC WITH DIFFE RENTI AL/PL ATELE T NRBC EXPLOSIVE OPERATOR FUSE Not Available [facility] ([facility] [place] [facility]) [address] [facility], [place], [address], 07/19/2023 08:21:13 07/18/20 23 07/19/2023 CBC WITH DIFFE RENTI AL/PL ATELE T hematology comments: EXPLOSIVE OPERATOR FUSE Not Available [facility] ([facility] [place] [facility]) [address] [facility], [place], [address], 07/19/2023 08:21:13 07/18/20 23 07/19/2023 COMP. METAB OLIC PANEL (14) glucose 93 mg/dL 70-99 Not Available [facility] ([facility] [place] [facility]) [address] [facility], [place], [address], 07/19/2023 08:21:15 07/18/20 23 07/19/2023 COMP. METAB OLIC PANEL (14) BUN 14 mg/dL 6-20 Not Available [facility] ([facility] [place]) [address] [place], [address], 07/19/2023 08:21:15 07/18/20 23 07/19/2023 COMP. METAB OLIC PANEL (14) creatinine 0.77 mg/dL 0.57-1 .00 Not Available [facility] ([facility] [place]) [address] [facility], [place], [address], 07/19/2023 08:21:15 07/18/20 23 07/19/2023 COMP. METAB OLIC PANEL (14) eGFR 110 mL/mi n/1.7 3 >59 Not Available [facility] ([facility] [place] [facility]) [address] [place], [address], 07/19/2023 08:21:15 07/18/20 23 07/19/2023 COMP. METAB OLIC PANEL (14) BUN/creatini ne ratio 18 9-23 Not Available [facility] ([facility] [place]) [address] [facility] [place], [address], 07/19/2023 08:21:15 07/18/20 23 07/19/2023 COMP. METAB OLIC PANEL (14) sodium 141 mmol/ L 134-14 4 Not Available [facility] ([facility] [facility]) [address] [place], [address], 07/19/2023 08:21:15 07/18/20 23 07/19/2023 COMP. METAB OLIC PANEL (14) potassium 4.1 mmol/ L 3.5-5. 2 Not Available [facility] ([facility] [facility]) [address] [facility] [place], [address], 07/19/2023 08:21:15 07/18/20 23 07/19/2023 COMP. METAB OLIC PANEL (14) chloride 104 mmol/ L 96-106 Not Available [facility] ([facility]) [address] [facility] [place], [address], 07/19/2023 08:21:15 07/18/20 23 07/19/2023 COMP. METAB OLIC PANEL (14) carbon dioxide, total 21 mmol/ L 20-29 Not Available [facility] ([facility] [place]) [address] [facility] [place], [address], 07/19/2023 08:21:15 07/18/20 23 07/19/2023 COMP. METAB OLIC PANEL (14) calcium 9.4 mg/dL 8.7-10 .2 Not Available [facility] ([facility]) [address] [facility] [place], [address], 07/19/2023 08:21:15 07/18/20 23 07/19/2023 COMP. METAB OLIC PANEL (14) protein, total 7.2 g/dL 6.0-8. 5 Not Available [facility] ([facility]) [address] [facility] [place], [address], 07/19/2023 08:21:15 07/18/20 23 07/19/2023 COMP. METAB OLIC PANEL (14) albumin 4.3 g/dL 4.0-5. 0 Not Available [facility] ([facility] [facility]) [address] [facility], [place], [address], 07/19/2023 08:21:15 07/18/20 23 07/19/2023 COMP. METAB OLIC PANEL (14) globulin, total 2.9 g/dL 1.5-4. 5 Not Available [facility] ([facility]) [address] [facility], [place], [address], 07/19/2023 08:21:15 07/18/20 23 07/19/2023 COMP. METAB OLIC PANEL (14) A/G ratio 1.5 1.2-2. 2 Not Available [facility] ([facility] [facility]) [address] [facility], [place], [address], 07/19/2023 08:21:15 07/18/20 23 07/19/2023 COMP. METAB OLIC PANEL (14) bilirubin, total 0.2 mg/dL 0.0-1. 2 Not Available [facility] ([facility] [place]) [address] [facility], [place], [address], 07/19/2023 08:21:15 07/18/20 23 07/19/2023 COMP. METAB OLIC PANEL (14) alkaline phosphatase 80 IU/L 44-121 Not Available [facility] ([facility] [place]) [address] [facility], [place], [address], 07/19/2023 08:21:15 07/18/20 23 07/19/2023 COMP. METAB OLIC PANEL (14) AST (SGOT) 14 IU/L 0-40 Not Available [facility] ([facility] [place]) [address] [place], [address], 07/19/2023 08:21:15 07/18/20 23 07/19/2023 COMP. METAB OLIC PANEL (14) ALT (SGPT) 10 IU/L 0-32 Not Available [facility] ([facility] [place]) [address] [place], [address], 07/19/2023 08:21:15 08/08/2008/09/2023 FE+TI BC+FE R iron bind.cap.(TI BC) 369 ug/dL 250-45 0 Not Available [facility] ([facility] [place]) [address] [place], [address], 08/09/2023 07:14:21 08/08/2008/09/2023 FE+TI BC+FE R UIBC 334 ug/dL 131-42 5 Not Available [facility] ([facility] [place] [facility]) [address] [place], [address], 08/09/2023 07:14:21 08/08/2008/09/2023 FE+TI BC+FE R iron 35 ug/dL 27-159 Not Available [facility] ([facility] [place] [facility]) [address] [place], [address], 08/09/2023 07:14:21 08/08/2008/09/2023 FE+TI BC+FE R iron saturation 9 % 15-55 alert low Not Available [facility] ([facility] [place] [facility]) [address] [place], [address], 08/09/2023 07:14:21 08/08/2008/09/2023 FE+TI BC+FE R ferritin 53 NG/mL 15-150 Not Available [facility] ([facility] [place]) [address] [place], [address], 08/09/2023 07:14:21 08/08/2008/09/2023 TSH+F REE T4 TSH 0.925 uIU/m L 0.450- 4.500 Not Available [facility] ([facility] [place]) [address] [facility] [place], [address], 08/09/2023 07:14:22 08/08/2008/09/2023 TSH+F REE T4 T4,free(dire ct) 0.96 NG/dL 0.82-1 .77 Not Available [facility] ([facility] [facility]) [address] [facility], [place], [address], 08/09/2023 07:14:22 08/08/2008/09/2023 CBC WITH DIFFE RENTI AL/PL ATELE T WBC 7.7 x10e3 /uL 3.4-10 .8 Not Available [facility] ([facility] [place]) [address] [place], [address], 08/09/2023 07:14:24 08/08/2008/09/2023 CBC WITH DIFFE RENTI AL/PL ATELE T RBC 4.90 x10e6 /uL 3.77-5 .28 Not Available [facility] ([facility]) [address] [facility], [place], [address], 08/09/2023 07:14:24 08/08/2008/09/2023 CBC WITH DIFFE RENTI AL/PL ATELE T hemoglobin 13.2 g/dL 11.1-1 5.9 Not Available [facility] ([facility]) [address] [place], [address], 08/09/2023 07:14:24 08/08/2008/09/2023 CBC WITH DIFFE RENTI AL/PL ATELE T hematocrit 40.4 % 34.0-4 6.6 Not Available [facility] ([facility]) [address] [place], [address], 08/09/2023 07:14:24 08/08/2008/09/2023 CBC WITH DIFFE RENTI AL/PL ATELE T MCV 82 fL 79-97 Not Available [facility] ([facility]) [address] [facility], [place], [address], 08/09/2023 07:14:24 08/08/2008/09/2023 CBC WITH DIFFE RENTI AL/PL ATELE T MCH 26.9 pg 26.6-3 3.0 Not Available [facility] ([facility]) [address] [facility], [place], [address], 08/09/2023 07:14:24 08/08/2008/09/2023 CBC WITH DIFFE RENTI AL/PL ATELE T MCHC 32.7 g/dL 31.5-3 5.7 Not Available [facility] ([facility]) [address] [facility], [place], [address], 08/09/2023 07:14:24 08/08/2008/09/2023 CBC WITH DIFFE RENTI AL/PL ATELE T RDW 13.3 % 11.7-1 5.4 Not Available [facility] ([facility]) [address] [facility], [place], [address], 08/09/2023 07:14:24 08/08/2008/09/2023 CBC WITH DIFFE RENTI AL/PL ATELE T platelets 298 x10e3 /uL 150-45 0 Not Available [facility] ([facility]) [address] [facility], [place], [address], 08/09/2023 07:14:24 08/08/2008/09/2023 CBC WITH DIFFE RENTI AL/PL ATELE T neutrophils 68 % not estab. Not Available [facility] ([facility]) [address] [facility], [place], [address], 08/09/2023 07:14:24 08/08/2008/09/2023 CBC WITH DIFFE RENTI AL/PL ATELE T lymphs 23 % not estab. Not Available [facility] ([facility]) [address] [facility], [place], [address], 08/09/2023 07:14:24 08/08/2008/09/2023 CBC WITH DIFFE RENTI AL/PL ATELE T monocytes 6 % not estab. Not Available [facility] ([facility]) [address] [facility], [place], [address], 08/09/2023 07:14:24 08/08/2008/09/2023 CBC WITH DIFFE RENTI AL/PL ATELE T eos 3 % not estab. Not Available [facility] ([facility]) [address] [facility], [place], [address], 08/09/2023 07:14:24 08/08/2008/09/2023 CBC WITH DIFFE RENTI AL/PL ATELE T basos 0 % not estab. Not Available [facility] ([facility]) [address] [facility], [place], [address], 08/09/2023 07:14:24 08/08/2008/09/2023 CBC WITH DIFFE RENTI AL/PL ATELE T immature cells EXPLOSIVE OPERATOR FUSE Not Available [facility] ([facility]) [address] [facility], [place], [address], 08/09/2023 07:14:24 08/08/2008/09/2023 CBC WITH DIFFE RENTI AL/PL ATELE T neutrophils (absolute) 5.2 x10e3 /uL 1.4-7. 0 Not Available [facility] ([facility]) [address] [facility], [place], [address], 08/09/2023 07:14:24 08/08/2008/09/2023 CBC WITH DIFFE RENTI AL/PL ATELE T lymphs (absolute) 1.8 x10e3 /uL 0.7-3. 1 Not Available [facility] ([facility]) [address] [place], [address], 08/09/2023 07:14:24 08/08/20 23 08/09/2023 CBC WITH DIFFE RENTI AL/PL ATELE T monocytes(ab solute) 0.5 x10e3 /uL 0.1-0. 9 Not Available [facility] ([facility]) [address] [facility], [place], [address], 08/09/2023 07:14:24 08/08/2008/09/2023 CBC WITH DIFFE RENTI AL/PL ATELE T eos (absolute) 0.2 x10e3 /uL 0.0-0. 4 Not Available [facility] ([facility]) [address] [facility], [place], [address], 08/09/2023 07:14:24 08/08/2008/09/2023 CBC WITH DIFFE RENTI AL/PL ATELE T baso (absolute) 0.0 x10e3 /uL 0.0-0. 2 Not Available [facility] ([facility]) [address] [facility], [place], [address], 08/09/2023 07:14:24 08/08/2008/09/2023 CBC WITH DIFFE RENTI AL/PL ATELE T immature granulocytes 0 % not estab. Not Available [facility] ([facility]) [address] [facility], [place], [address], 08/09/2023 07:14:24 08/08/2008/09/2023 CBC WITH DIFFE RENTI AL/PL ATELE T immature grans (abs) 0.0 x10e3 /uL 0.0-0. 1 Not Available [facility] ([facility]) [address] [facility], [place], [address], 08/09/2023 07:14:24 08/08/2008/09/2023 CBC WITH DIFFE RENTI AL/PL ATELE T NRBC EXPLOSIVE OPERATOR FUSE Not Available [facility] ([facility]) [address] [place], [address], 08/09/2023 07:14:24 08/08/20 23 08/09/2023 CBC WITH DIFFE RENTI AL/PL [place] T hematology comments: EXPLOSIVE OPERATOR FUSE Not Available [facility] ([facility]) [address] [facility], [place], [address], 08/09/2023 07:14:24 08/08/20 23 08/09/2023 COMP. METAB OLIC PANEL (14) glucose 99 mg/dL 70-99 Not Available [facility] ([facility]) [address] [facility], [place], [address], 08/09/2023 07:14:25 08/08/2008/09/2023 COMP. METAB OLIC PANEL (14) BUN 17 mg/dL 6-20 Not Available [facility] ([facility]) [address] [facility], [place], [address], 08/09/2023 07:14:25 08/08/20 23 08/09/2023 COMP. METAB OLIC PANEL (14) creatinine 0.83 mg/dL 0.57-1 .00 Not Available [facility] ([facility]) [address] [facility], [place], [address], 08/09/2023 07:14:25 08/08/20 23 08/09/2023 COMP. METAB OLIC PANEL (14) eGFR 100 mL/mi n/1.7 3 >59 Not Available [facility] ([facility]) [address] [facility], [place], [address], 08/09/2023 07:14:25 08/08/20 23 08/09/2023 COMP. METAB OLIC PANEL (14) BUN/creatini ne ratio 20 - Not Available [facility] ([facility]) [address] [place], [address], 08/09/2023 07:14:25 08/08/20 23 08/09/2023 COMP. METAB OLIC PANEL (14) sodium 144 mmol/ L 134-14 4 Not Available [facility] ([facility]) [address] [facility] [place], [address], 08/09/2023 07:14:25 08/08/20 23 08/09/2023 COMP. METAB OLIC PANEL (14) potassium 4.4 mmol/ L 3.5-5. 2 Not Available [facility] ([facility]) [address] [facility] [place], [address], 08/09/2023 07:14:25 08/08/20 23 08/09/2023 COMP. METAB OLIC PANEL (14) chloride 105 mmol/ L 96-106 Not Available [facility] ([facility]) [address] [facility] [place], [address], 08/09/2023 07:14:25 08/08/20 23 08/09/2023 COMP. METAB OLIC PANEL (14) carbon dioxide, total 22 mmol/ L 20-29 Not Available [facility] ([facility]) [address] [facility] [place], [address], 08/09/2023 07:14:25 08/08/2008/09/2023 COMP. METAB OLIC PANEL (14) calcium 9.2 mg/dL 8.7-10 .2 Not Available [facility] ([facility]) [address] [place], [address], 08/09/2023 07:14:25 08/08/2008/09/2023 COMP. METAB OLIC PANEL (14) protein, total 6.9 g/dL 6.0-8. 5 Not Available [facility] ([facility]) [address] [place], [address], 08/09/2023 07:14:25 08/08/20 23 08/09/2023 COMP. METAB OLIC PANEL (14) albumin 4.3 g/dL 4.0-5. 0 Not Available [facility] ([facility]) [address] [place], [address], 08/09/2023 07:14:25 08/08/20 23 08/09/2023 COMP. METAB OLIC PANEL (14) globulin, total 2.6 g/dL 1.5-4. 5 Not Available [facility] ([facility]) [address] [facility], [place], [address], 08/09/2023 07:14:25 08/08/20 23 08/09/2023 COMP. METAB OLIC PANEL (14) A/G ratio 1.7 1.2-2. 2 Not Available [facility] ([facility]) [address] [facility], [place], [address], 08/09/2023 07:14:25 08/08/20 23 08/09/2023 COMP. METAB OLIC PANEL (14) bilirubin, total <0.2 mg/dL 0.0-1. 2 Not Available [facility] ([facility]) [address] [facility], [place], [address], 08/09/2023 07:14:25 08/08/20 23 08/09/2023 COMP. METAB OLIC PANEL (14) alkaline phosphatase 80 IU/L 44-121 Not Available [facility] ([facility]) [address] [facility], [place], [address], 08/09/2023 07:14:25 08/08/20 23 08/09/2023 COMP. METAB OLIC PANEL (14) AST (SGOT) 13 IU/L 0-40 Not Available [facility] ([facility]) [address] [facility], [place], [address], 08/09/2023 07:14:25 08/08/20 23 08/09/2023 COMP. METAB OLIC PANEL (14) ALT (SGPT) 14 IU/L 0-32 Not Available [facility] ([facility]) [address] [facility], [place], [address], 08/09/2023 07:14:25 08/08/20 23 08/09/2023 VITAM IN B12 AND FOLAT E vitamin B12 437 pg/mL 232-12 45 Not Available [facility] ([facility]) [address] [facility], [place], [address], 08/09/2023 07:14:26 08/08/20 23 08/09/2023 VITAM IN B12 AND FOLAT E folate (folic acid), serum 13.0 NG/mL >3.0 A serum folat e sandra ntrat ion of less than 3.1 ng/mL is consi dered to repre sent clini gisell defic iency . Not Available [facility] ([facility]) [address] [facility], [place], [address], 08/09/2023 07:14:26 08/08/20 23 08/09/2023 VITAM IN [...] 1. IOM (Inst itute of Medic ine). 2009. Dieta ry refer ence intak es for calci um and D. Alicia avalos [place]: [facility] Press . 2. Aiden rivera MF, Farrah dixon [place], Hillary off-F errjaelyn i NUÑEZ, et al. Evalu ation , treat ment, and preve ntion of vitam in D defic iency : an Endoc rine Socie ty clini gisell pract ice guide line. JCEM. 2010; 96(7) :1911 -30. Not Available [facility] ([facility]) [address] [facility], [place], [address], 08/09/2023 07:14:27 08/08/20 23 08/09/2023 MAGNE SIUM magnesium 1.9 mg/dL 1.6-2. 3 Not Available [facility] ([facility]) [address] [facility], [place], [address], 08/09/2023 07:14:28 05/26/20 23 05/26/2023 PAP nap (PROC ) No observ ation record ed. [email or web address] Not Available 2022 09:46:47 Result Notes None recorded. Procedures Surgical History Date Name Laterality Status Provider Name and Address Organization Details Recorded Time 03/18/2020 Date of Last Pap Smear completed MARGARETBart MELTON [facility] [place] 04/05/2023 13:05:37 10/30/2011 Tonsillecto my/Adenoide ctomy completed [facility] JONES MELTON [facility] [place] 04/05/2023 13:05:37 Imaging Results None recorded. Procedure [...] propionate 50 mcg/actuati on nasal spray,suspe nsion [place] 1 spray every day by intranasa l [...] Updated DateTime 3 157.48 cm 50.1 kg/m2 715678. 31 g 97.7 [degF] 98 % 98 % 105 /min 92 mm[Hg] 66 mm[Hg] MARGARET JONES MULTANI - LPNT [facility] [place] 3 14:59:03 Date Recorded Body height Body mass index (BMI) Body weight Body temperature Oxygen saturation Oxygen saturation in Arterial blood by Pulse oximetry Heart rate Systolic blood pressure Diastolic blood pressure Provider Name and Address Organization Details Last Updated DateTime 3 157.48 cm 47.6 kg/m2 816788. 42 g 98.2 [degF] 99 % 99 % 103 /min 124 mm[Hg] 86 mm[Hg] MARGARET JONES MULTANI - LPNT [facility] [place] 3 15:58:53 Date Recorded Body height Body weight Body mass index (BMI) Body temperature Oxygen saturation Oxygen saturation in Arterial blood by Pulse oximetry Heart rate Systolic blood pressure Diastolic blood pressure Provider Name and Address Organization Details Last Updated DateTime 3 157.48 cm 962376. 72 g 49.9 kg/m2 97.7 [degF] 100 % 100 % 128 /min 100 mm[Hg] 76 mm[Hg] MARGARET JONES MULTANI - LUANANT [facility] [place] 3 10:09:53 Date Recorded Body height Body mass index (BMI) Body weight Body temperature Oxygen saturation Oxygen saturation in Arterial blood by Pulse oximetry Heart rate Systolic blood pressure Diastolic blood pressure Provider Name and Address Organization Details Last Updated DateTime 3 157.48 cm 51.9 kg/m2 728794. 87 g 98 [degF] 98 % 98 % 91 /min 127 mm[Hg] 74 mm[Hg] Agnes Khalil LPKRANTHI [facility] [place] 3 08:43:53 Date Recorded Body height Body mass index (BMI) Body weight Body temperature Oxygen saturation Oxygen saturation in Arterial blood by Pulse oximetry Heart rate Systolic blood pressure Diastolic blood pressure Provider Name and Address Organization Details Last Updated DateTime 3 157.48 cm 51 kg/m2 573634. 27 g 97.5 [degF] 99 % 99 % 129 /min 124 mm[Hg] 90 mm[Hg] Dheeraj Santana NERISSA MELTON [facility] [place] 3 15:59:39 Social History Question Answer Notes LastModified by Framebench ion Details LastModified Time Tobacco Smoking Status Former Smoker MARGARET PELAYOCYRUS hassan [facility] [place] 04/05/2023 13:05:37 Do You Have An Advance [...] Functional Status Question Answer Note LastModified by amSTATZizDoximity ion Details LastModified Time Do you use any illicit or recreational drugs? Yes Information not available 04/05/2023 Do you or have you ever used any other forms of tobacco or nicotine? Yes [email or web address] Information not available 06/02/2023 What is your level of alcohol consumption? Occasional Information not available 04/05/2023 Do you or have you ever used smokeless tobacco? 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 Current user of electronic cigarettes [email or web address] Information not available 06/02/2023 What is your exercise level? Moderate Information not available 04/05/2023 Mental Status Question Answer Note LastModified by Organization D etails LastModified Time Do you feel stressed (tense, restless, nervous, or anxious, or unable to sleep at night)? [id number] Information not available 04/05/2023 Family History Relationship [...] available 04/02/2023 16:50:39 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 Condition Response Depression Y Anxiety Disorder Y Obesity Y Gynecological History Statement/Question Response Abnormal Pap [...] SNOMED-CT Code Diagnosis ICD10 Code Diagnosis Note [id number] Unruly Bustillo in, CIGAR TOBACCO REHANDLER [facility] [address] [facility] [address] [place] [address] 04/05/2023 13:02:12 04/05/2023 13:39:51 Adult health examination 015418246 Z00.00 Will check complete bloodwork. Will call with results.Co unseled on dietary modificati ons and healthy eating habits.Cou nseled on decreasing stress levels,Rec ommend yearly eye examsRecom mend regular dental exams/ashely rnings. Thyroid di sorder screening 292179732 Z13.29 Mixed anxi ety and depressive disorder 226710636 F41.8 Screening for malignant neoplasm of cervix 921113645 Z12.[address] James Cowart. History of ectopic pregnancie s. She is up to date on preventati ve screenings . Excessive daytime sleepiness with sleep paralysis 891725029 G47.53 Patient has a history of sleep paralysis. History of snoring. History of restless sleep patterns. Body mass index 40+ - severely obese 653266725 Z68.43 Patient is exercising . Patient is attempting to make dietary modificati ons. [id number] Unruly Bustillo in[address] [place] [address] 04/06/2023 08:02:02 04/06/2023 08:41:28 [id number] Tramaine Winkler MD [address] [place] [address] 04/26/2023 12:57:14 04/26/2023 13:15:14 Obstructive sleep apnea syndrome 50781741 G47.33 papnap...t itration to autopap 6-20 cm H2O. Obesity 580252925 E66.9 Patient aware that weight loss will improve not eliminate her need for auto PAP. [id number] Unruly Bustillo in[address] [address] 06/02/2023 14:51:05 06/02/2023 15:15:39 Mixed anxiety and depressive disorder 628398822 F41.8 Patient is tolerating medication . Will refill.Danny telly see back in 1 month.Will check vitamin levels, CBC, CMP, and iron panel at that time. [id number] Unruly Bustillo in[address] [address] 07/18/2023 15:54:45 07/18/2023 16:18:02 Viral upper respiratory tract infection 639736878 J06.9 Humidifier at night.Use medication as directed.O TC meds for cough.Foll ow up if no improvemen t. Iron defic iency anemia 56972606 D50.9 Patient finished her Iron supplement s.Will check levels today. Will call with results. Body mass index 30+ - obesity 231821660 Z68.42 Will start Wegovy.Danny l see back in 1 month for weight check.Will increase as tolerated. [id number] Unruly MoraLeidy in[address] [place] [address] 08/08/2023 09:58:51 08/08/2023 11:08:21 Tremor 66147547 R25.1 Will check lab work. Will call with results. Iron defic iency anemia 67949210 D50.9 Mixed anxi ety and depressive disorder 290523334 F41.8 Patient is reacting to the medication [...] do genetic testing at patient request today. [id number] [facility] [address] [place] [address] [address] [place] [address] 08/23/2023 15:37:17 08/23/2023 16:37:13 Mixed anxiety and depressive disorder 912780418 F41.8 Counseled in depth on symptoms of concern and when to go to ER. at chairside. Counseled on concerns and behavior changes and when to reach out for help. Support system is intact at home.Jose Luis knight on genetic testing results.Se e patient back in 1 month.Catrina ent is tolerating the Duloxetine 60mg. Vitamin D deficiency 347 58353 E55.9 [id number] Aden Petty MD [facility] Oncology and Hematolog y [address] [facility] [address] [place] [address] 08/23/2023 08:31:40 08/23/2023 09:08:39 Iron deficiency anemia 81847168 D50.9 Labs on August 08, 2023 with magnesium at 1.9. Vitamin-D level low at 22.4. B12 437. Folic acid 13. Normal liver function testing. Normal renal function. Normal electrolyt es. White blood cell count 7.7. Red blood cell count 4.90 hemoglobin 13.2 and hematocrit 40.4. MCV 82. Platelet count 951395. Normal cell differenti al. TSH 0.9. T4 [...] response to increasing PO supplement ation. Headache 81163391 R51.9 Concern for possible migraine. Will follow-up [...] Member ID Guarantor Name 10/01/2023 1 [place] [id number] A Leticia Wilkins [id number] Leticia Vo Notes Date Note Type Note Provider Name and Address Organization Details Recorded Time 06/02/2023 text/html patient presents to clinic for medication update. She was placed inpatient at [facility] and was treated by Dr. Rankin. She states her prozac was causing hallucinations. She was started on seroquel and wellbutrin. She is tolerating well. She states she feels so much better. She does not have a follow up scheduled with Dr. Rankin. Unruly Rosen, [employer] REHAND[employer]ER [address], [place], [address], [facility] [place] 06/02/2023 15:11:10 07/18/2023 text/html patient presents to clinic for follow up. She states she is tolerating her medication. No complaints. She reports some increased sinus drainage and her left ear is itchy. Denies any fever. Reports a dry cough. Denies any sore throat. Unruly Rosen APRN [address], [place], [address], [facility] [place] 07/18/2023 16:25:02 08/08/2023 text/html patient presents to clinic for an intermittent tremor. She has been titrating the Seroquel over the last week since we spoke. She denies any syncopal episodes. Denies any chest pain. Denies any thoughts of self harm or homicidal thoughts. Denies any hallucinations today. Unruly Rosen APRN [address], [place], [address], [facility] [place] 08/08/2023 14:26:50 08/23/2023 text/html patient presents to clinic for follow up. She is tolerating the Duloxetine. She denies suicidal or homicidal thoughts. She states that the tremor is completely gone. She states she sees hematology October 04. Unruly Rosen APRN [address], [place], [address], [facility] [place] 08/23/2023 16:18:32 08/23/2023 text/html 23 yo F [...] and hematocrit 40.4. MCV 82. Platelet count 862193. Normal cell differential. TSH 0.9. T4 0.96. [...] to increasing PO supplementation. Aden Petty MD [address], [place], [address], [place] - LP[facility] - [place] [facility] [place] 08/23/2023 09:44:31 OBGyn Episode No OBEpisode recorded.
--- OUTSIDE RECORDS SUMMARY | 2025-04-22 09:54 | XMS_ITS | Clinical Summary ---
Author Organization [facility] Address [address] [place] [address] Care Team Providers Care Drilling Superintendent Name Role Phone Stephanie Allen Primary Care Provider [phone] Allergies Active Allergy Reactions Criticality Noted Date [...] Telephone Obstetrics & Gynecology [address] [place] [address] James Cowart MD 01/29/2025 Telephone Obstetrics & Gynecology [address] [place] [address] James Cowart MD 01/22/2025 9:15 AM EDT Clinical Support Obstetrics & Gynecology [address] [place] [address] 21 weeks gestation of 01/22/2025 8:00 AM EDT Routine Obstetrics & Gynecology [address] [place] [address] James Cowart MD 21 weeks gestation of (Primary Dx); Cervical shortening in second trimester 01/22/2025 8:00 AM EDT - 01/22/2025 11:59 PM EDT Hospital Encounter [facility] Elaina OBALISHA Ultrasound [address] [place] [address] 13 weeks gestation of Discharge Disposition: Home [...] 19+ 3-dose series) 2017 [facility]-Pap Smear 2019 PMS-LDRQN-87 Vaccine ( - season) 2024 [facility]-Influenza Vaccine [...] LAB HEMATOLOGY METHOD 01/22/2025 1:52 PM EDT [facility] RBC Count 4.21 3.90 - 5.20 10*6/uL LAB HEMATOLOGY METHOD 01/22/2025 1:52 PM EDT [facility] HGB 11.2 11.2 - 15.7 g/dL LAB HEMATOLOGY METHOD 01/22/2025 1:52 PM EDT [facility] HCT 35.5 34.0 - 45.0 % LAB HEMATOLOGY METHOD 01/22/2025 1:52 PM EDT [facility] Platelet Count 260 155 - 369 10*3/uL LAB HEMATOLOGY METHOD 01/22/2025 1:52 PM EDT [facility] MCV 84 79 - 98 fL LAB HEMATOLOGY METHOD 01/22/2025 1:52 PM EDT [facility] MCH 26.6 26.0 - 32.0 pg LAB HEMATOLOGY METHOD 01/22/2025 1:52 PM EDT [facility] MCHC 31.5 30.7 - 35.5 g/dL LAB HEMATOLOGY METHOD 01/22/2025 1:52 PM EDT [facility] RDW 14.5 11.5 - 14.5 % LAB HEMATOLOGY METHOD 01/22/2025 1:52 PM EDT [facility] MPV 11.0 8.8 - 12.5 fL LAB HEMATOLOGY METHOD 01/22/2025 1:52 PM EDT [facility] nRBC 0.0 <=0.0 per 100 WBCs LAB HEMATOLOGY METHOD 01/22/2025 1:52 PM EDT [facility] Differential Type Automated LAB HEMATOLOGY METHOD 01/22/2025 1:52 PM EDT [facility] Neutrophils % 76 % LAB HEMATOLOGY METHOD 01/22/2025 1:52 PM EDT [facility] Lymphocytes % 15 % LAB HEMATOLOGY METHOD 01/22/2025 1:52 PM EDT [facility] Monocytes % 6 % LAB HEMATOLOGY METHOD 01/22/2025 1:52 PM EDT [facility] Eosinophils % 2 % LAB HEMATOLOGY METHOD 01/22/2025 1:52 PM EDT [facility] Basophils % 0 % LAB HEMATOLOGY METHOD 01/22/2025 1:52 PM EDT [facility] Immature Granulocytes % 1 % LAB HEMATOLOGY METHOD 01/22/2025 1:52 PM EDT [facility] Neutrophils Absolute 6.05 1.60 - 6.10 10*3/uL LAB HEMATOLOGY METHOD 01/22/2025 1:52 PM EDT [facility] Lymphocytes Absolute 1.21 1.20 - 3.90 10*3/uL LAB HEMATOLOGY METHOD 01/22/2025 1:52 PM EDT [facility] Monocytes Absolute 0.46 0.30 - 0.90 10*3/uL LAB HEMATOLOGY METHOD 01/22/2025 1:52 PM EDT [facility] Eosinophils Absolute 0.16 0.00 - 0.50 10*3/uL LAB HEMATOLOGY METHOD 01/22/2025 1:52 PM EDT [facility] Basophils Absolute 0.03 0.00 - 0.10 10*3/uL LAB HEMATOLOGY METHOD 01/22/2025 1:52 PM EDT [facility] Immature Granulocytes Absolute 0.07(H) 0.00 - 0.06 10*3/uL LAB HEMATOLOGY METHOD 01/22/2025 1:52 PM EDT [facility] Blood Venous blood specimen / Unknown Venipuncture / Unknown 01/22/2025 9:20 AM EDT 01/22/2025 1:14 PM EDT Narrative [facility] - 01/22/2025 1:52 PM EDT Therapeutic decision making should be based on absolute values, rather than percentages. us James Cowart MD LAB BLOOD ORDERABLES Final Resu lt [facility] [address] [place] [address] * Type and Screen (01/22/2025 9:20 AM [...] TEST ORDERABLES Final Result Performing Organization Address City/[facility]/ZIP Co de Phone Number BLOOD BANK [address] [place] [address], [place] * TSH (01/22/2025 9:20 AM EDT) Thyroid Stimulating Hormone, Plasma 1.65 0.40 - 4.20 uIU/mL 01/22/2025 2:00 PM EDT [facility] Blood Venous blood specimen / Unknown Venipuncture / Unknown 01/22/2025 9:20 AM EDT 01/22/2025 1:14 PM EDT Narrative [facility] - 01/22/2025 2:00 PM EDT Trimester Specific Ranges TSH ( IU/mL) 1st Trimester 0.1 - 3.0 2nd Trimester 0.19 - 4.06 3rd Trimester 0.3 - 3.7 Result Santino Cowart MD LAB BLOOD ORDERABLES Final Resu lt [facility] [address] [place] [address] * OB US 14+ Weeks Anatomy Scan (01/22/2025 9:14 AM EDT) Anatomical Region Laterality Modality Body Ultrasound 01/22/2025 8:05 AM EDT Impressions 01/23/2025 8:23 PM EDT The OB Ultrasound you requested has been resulted. Please navigate to the Imaging tab in [employer] for review. This message has been generated by the interface. Narrative Procedure Note Agnes Hameed MD - 01/23/2025 IMPRESSION: The OB Ultrasound you requested has been resulted. Please navigate to theImaging tab in [employer] for review. This message has been generated by theinterface. Result Santino Cowart MD IMG OB US PROCEDURES Final Resu lt * HIV 1 & 2 Antibody/Antigen Screen (11/01/2024 10:24 AM EST) Pathologist [facility] HIV 1 & 2 Antibody/Antigen Screen Non Reactive Non Reactive 11/01/2024 1:54 PM EST [facility] Comment:Screening for HIV 1 & 2 antibodies, and P24 antigen is NONREACTIVE. No confirmatory testing is required. Blood Venous blood specimen / Unknown Venipuncture / Unknown 11/01/2024 10:24 AM EST 11/01/2024 12:52 PM EST Result Santino Cowart MD LAB BLOOD ORDERABLES Final Resu lt Performing Organization Address City/[facility]/ZIP Co de Phone Number [facility] [address] [place] [address] * Hepatitis C Antibody w/Reflex to HCV Quant PCR (11/01/2024 10:24 AM EST) Hepatitis C Antibody Negative Negative 11/01/2024 1:31 PM EST [facility] Blood Venous blood specimen / Unknown Venipuncture / Unknown 11/01/2024 10:24 AM EST 11/01/2024 12:52 PM EST Result Santino Cowart MD LAB BLOOD ORDERABLES Final Resu lt Performing Organization Address City/[facility]/ZIP Co de Phone Number [facility] [address] [place] [address] from Last 3 Months or Most Recently Relevant to Health Maintenance Additional Health Concerns Active Problems Noted Date Diagnosed Date CPM S24 PP LABOR (OBSTETRICS) 11/19/2024 Insurance ANTH Care Teams Drilling Superintendent Relationship Specialty Start Date End Date Stephanie Allen PA [address] [place] [address] PCP - General 08/30/24
--- OUTSIDE RECORDS SUMMARY | 2025-04-22 09:54 | XMS_ITS | Encounter Summary ---
Author Organization Healthcare Address [address] [place] [address] Care Team Providers Care Medical Oncologist Name Role Phone Stephanie Allen Primary Care Provider Encounter Details Date Type Department Care Team (Late st Contact Info) Description 02/21/2025 Telephone Obstetrics & Gynecology [address] [place] [address] James Cowart MD [address] [place] [address] Social History Tobacco Use Types [...] pt appt no longer needed- transferring to [facility] documented in this encounter Plan of [...] documented as of this encounter Care Teams Medical Oncologist Relationship Specialty Start Date End Date Stephanie Allen PA [address] [place] [address] PCP - General 08/30/24 documented as of this encounter
--- OUTSIDE RECORDS SUMMARY | 2025-04-22 09:54 | XMS_ITS | Encounter Summary ---
Author Organization Healthcare Address [address] [place] [address] Care Team Providers Care Impregnating Helper Name Role Phone Stephanie Allen Primary Care Provider [phone] Encounter Details Date Type Department Care Team (Late st Contact Info) Description 01/29/2025 Telephone Obstetrics & Gynecology [address] [place] [address] James Cowart MD [address] [place] [address] Social History Tobacco Use Types [...] encounter Miscellaneous Notes * Telephone Encounter - [place] Guadalupe L - 01/29/2025 3:03 PM EDT Clinical Concern/Question Reason for Call: pt is wanting to do a JAZLYN to [facility] with Dr. Mahogany Beavers. Pt is asking that her records please be faxed to that hospital. Fax for their office is [phone] Attn: Dr. Bart Beavers. Please cx the u/s apts that are left on schedule, I have cx the OB apts Best contact number: [phone] (mobile) Optimal time of day to reach [...] will receive notification of the communication/outcome via [employer]. documented in this encounter Plan of Treatment [...] documented as of this encounter Care Teams Impregnating Helper Relationship Specialty Start Date End Date Stephanie Allen PA [address] [place] [address] PCP - General 08/30/24 documented as of this encounter
--- OUTSIDE RECORDS SUMMARY | 2025-04-22 09:54 | XMS_ITS | Encounter Summary ---
Author Organization Healthcare Address [address] [place] [address] Care Team Providers Care Music Educator Name Role Phone None, None Primary Care Provider [phone] Stephanie Allen Primary Care Provider [phone] Encounter Details Date Type Department Care Team (Late st Contact Info) Description 10/12/2022 Outside Procedure External Location [address] [place] [address] James Cowart MD [address] [place] [address] Social History Tobacco Use Types [...] AM EST Narrative 10/12/2022 8:21 [place] [address] Name: LETICIA PENNINGTON Exam Date: 10/12/2022 : 2000 Age 22 Gender: F Physician: JAMES COWART Facility: [facility] Facility HSV: Outpatient Exam: HYSTEROSALPINGOGRAM [...] Thank you for referring LETICIA PENNINGTON to [facility]. Legally authenticated by POPE ANA Baptiste 2022-10-12 08:09:41 Procedure Note Provider, Generic [place] - 10/12/2022 [place] [address] Name: LETICIA PENNINGTON Exam Date: 10/12/2022 : 2000 Age 22 Gender: F Physician: JAMES COWART Facility: [facility] Facility HSV: Outpatient Exam: HYSTEROSALPINGOGRAM [...] Thank you for [facility]. Legally authenticated by POPE ANA Baptiste 2022-10-12 08:09:41 James Cowart MD IMG FLUOROSCOPY PROCEDURES Gayle l Result documented in this encounter Visit Diagnoses Not on filedocumented in this encounter Care Teams Music Educator Relationship Specialty Start Date End Date None, None [address] [place] [address] PCP - General NONE FOUND 09/05/22 05/23/24 Stephanie Allen PA [address] [place] [address] PCP - General 08/30/24 documented as of this encounter
--- OUTSIDE RECORDS SUMMARY | 2025-04-22 09:54 | XMS_ITS | Clinical Summary ---
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
--- OUTSIDE RECORDS SUMMARY | 2025-04-22 09:54 | XMS_ITS | Referral Summary ---
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
[2025-04-22 10:26] VITALS: BMI 56.3
[2025-04-22 10:37] VITALS: BMI 56.3
[2025-04-22] MEDS: MVI, ADULT NO.1 WITH VIT K 10 ML, THIAMINE HCL 100 MG, MAGNESIUM SULFATE 2 GM in LACTAT... 125 ML IV (10:51)
[2025-04-22 11:00] LABS: Microscopic, Urine URINE MICROSCOPIC (MICROSCOPIC)
[2025-04-22 11:12] LABS: Albumin Level 3.5 g/dl (3.5-5.0); Chloride 102 mmol/L (98-107)
[2025-04-22 11:13] LABS: Potassium 4.1 mmoL/L (3.5-5.1); Sodium 136 mmol/L (136-145)
[2025-04-22 11:15] LABS: Appearance,Urine CLEAR (Clear); Bilirubin,Urine Negative (Negative); Blood, Urine Negative (Negative); Color,Urine YELLOW (Yellow); Glucose,Urine (UA) Negative (Negative); Ketones,Urine Negative (Negative); Leukocyte Esterase,Urine 2+ (Negative); Nitrate,Urine Negative (Negative); Protein,Urine Negative (Negative); Specific Gravity, Urine 1.015 (1.005-1.030); Urobilinogen,Urine 0.2 EU/dl (0.2)
[2025-04-22 11:15] LABS: Alanine Aminotransferase 15 U/L (12-78); Anion Gap 15.1 mEq/L (5-15); Aspartate Amino Transferase 22 U/L (14-36); Blood Urea Nitrogen 10 mg/dl (7-17); Carbon Dioxide 23 mmol/L (22.0-30.0); Creatinine Clearance Estimated 112 mL/min (50-200); Estimated Glomerular Filt Rate 121 ml/min (>60); GFR (African American) 146 ML/MIN (>60)
[2025-04-22 11:16] LABS: Albumin/Globulin Ratio 1.1 (1.1-1.8); Alkaline Phosphatase 100 U/L (38-126); Bilirubin,Total 0.2 mg/dl (0.2-1.3); Calcium 9.2 mg/dl (8.4-10.2); Globulin 3.2 g/dL (1.3-3.2); Glucose 136 mg/dl (74-100); Magnesium 1.7 mg/dl (1.6-2.3); Total Protein,Serum 6.7 g/dl (6.3-8.2)
[2025-04-22 11:38] LABS: Bacteria,Urine Trace /lpf; Squamous Epithelial Cell,Urine 20-50 #/hpf (0-5); WBC,Urine 20-50 #/hpf (0-3)
== END 2025-04-22 14:15 | disposition home or self-care (01) ==
LOC: OBOUT 09:51 → OB 09:52
PROVIDERS: PCP Nurse Practitioner Family; Visit Provider Obstetrics & Gynecology
DX: O26.893 Other specified pregnancy related conditions, third trimester (principal); R55 Syncope and collapse; Z3A.33 33 weeks gestation of pregnancy
CPT/HCPCS: 59025; 80053; 81001; 83735; 87086; 96360; 96361; 99212; G0463; J3411; J3475; J7120

== ENCOUNTER 2025-04-23 07:37 | Outpatient (CLI) | payer BC, SELFPAY ==
--- OUTSIDE RECORDS SUMMARY | 2025-04-23 07:41 | XMS_ITS | Referral Summary ---
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
--- OUTSIDE RECORDS SUMMARY | 2025-04-23 07:41 | XMS_ITS | Clinical Summary ---
Author Organization [employer] Address [address] [place] [address] Care Team Providers Care Structural Steel Engineer Name Role Phone Stephanie Allen PA-C Primary Care Provider [phone] Allergies Active Allergy Reactions Criticality Noted Date [...] Date Deyvi rded Speak language other than Gibraltarian at home Not on file 09/01/2024 Want [...] on file Legal Sex Female 7:19 PM HOOKER OFF Gender Identity Not on file Sexual Orientation [...] topic Insurance BLUE CROSS/BLUE SHIELD Care Teams Structural Steel Engineer Relationship Specialty Start Date End Date Stephanie Allen PA-C [address] [address] PCP - General 09/01/24
--- OUTSIDE RECORDS SUMMARY | 2025-04-23 07:41 | XMS_ITS | Clinical Summary ---
Author Organization [facility] Address [address] [place] [address] Care Team Providers Care Therapist Phys Name Role Phone Stephanie Allen Primary Care [...] Telephone Obstetrics & Gynecology [address] [place] [address] James Cowart MD 01/29/2025 Telephone Obstetrics & Gynecology [address] [place] [address] James Cowart MD 01/22/2025 9:15 AM EDT Clinical Support Obstetrics & Gynecology [address] [place] [address] 21 weeks gestation of 01/22/2025 8:00 AM EDT Routine Obstetrics & Gynecology [address] [place] [address] James Cowart MD 21 weeks gestation of (Primary Dx); Cervical shortening in second trimester 01/22/2025 8:00 AM EDT - 01/22/2025 11:59 PM EDT Hospital Encounter [facility] Elaina OBALISHA Ultrasound [address] [place] [address] 13 weeks gestation of Discharge Disposition: Home or Self Care 01/22/2025 Travel from Last 3 Months Family History 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 Relation Name Comments Alcohol abuse Father Rosie Vo Cancer Father Rosie Vo Diabetes Father Earsedson Vo Kidney cancer Father Rosie Vo Obesity Father Rosie Vo Cancer Maternal Grandfather Jones Fischer Hearing loss Maternal Grandfather Jones Fischer Heart disease Maternal Grandfather Jones Fiscehr COPD Maternal Grandmother Esme Fischer Heart disease [...] 19+ 3-dose series) 2017 [facility]-Pap Smear 2019 [id number] Vaccine ( - season) 2024 [facility]-Influenza Vaccine [...] Resu lt [facility] [address] [place] [address] * Type and Screen (01/22/2025 9:20 AM [...] TEST ORDERABLES Final Result Performing Organization Address City/[facility]/ZIP Co de Phone Number BLOOD BANK [address] [place] [address], [place] * TSH (01/22/2025 9:20 AM EDT) [...] MD LAB BLOOD ORDERABLES Final Resu lt [facility] [address] [place] [address] * OB US 14+ Weeks Anatomy Scan (01/22/2025 9:14 AM EDT) Anatomical Region Laterality Modality Body Ultrasound 01/22/2025 8:05 AM EDT Impressions 01/23/2025 8:23 PM EDT The OB Ultrasound you requested has been resulted. Please navigate to the Imaging tab in [employer] for review. This message has been generated by the interface. Narrative Procedure Note Agnes Hameed MD - 01/23/2025 IMPRESSION: The OB Ultrasound you requested has been resulted. Please navigate to theImaging tab in [employer] for review. This message has been generated by theinterface. Result Santino Cowart MD IMG OB US PROCEDURES Final Resu lt * HIV 1 & 2 Antibody/Antigen Screen (11/01/2024 10:24 AM EST) Pathologist [facility] HIV 1 & 2 Antibody/Antigen Screen Non [...] ORDERABLES Final Resu lt Performing Organization Address City/[facility]/ZIP Co de Phone Number [facility] [address] [place] [address] * Hepatitis C Antibody w/Reflex to HCV Quant PCR (11/01/2024 10:24 AM EST) Hepatitis C Antibody Negative Negative 11/01/2024 1:31 PM EST [facility] Blood Venous blood specimen / Unknown Venipuncture / Unknown 11/01/2024 10:24 AM EST 11/01/2024 12:52 PM EST Result Santino Cowart MD LAB BLOOD ORDERABLES Final Resu lt Performing Organization Address City/[facility]/ZIP Co de Phone Number [facility] [address] [place] [address] from Last 3 Months or Most Recently Relevant to Health Maintenance Additional Health Concerns Active Problems Noted Date Diagnosed Date CPM S24 PP LABOR (OBSTETRICS) 11/19/2024 Insurance ANTH Care Teams Therapist Phys Relationship Specialty Start Date End Date Stephanie Allen PA [address] [place] [address] PCP - General 08/30/24
--- OUTSIDE RECORDS SUMMARY | 2025-04-23 07:41 | XMS_ITS | Encounter Summary ---
Author Organization Healthcare Address [address] [place] [address] Care Team Providers Care Children'S Aide Name Role Phone Stephanie Allen Primary Care Provider [phone] Encounter Details Date Type Department Care Team (Late st Contact Info) Description 01/29/2025 Telephone Obstetrics & Gynecology [address] [place] [address] James Cowart MD [address] [place] [address] Social History Tobacco Use Types [...] is wanting to do a JAZLYN to [facility]'s Health with Dr. Mahogany Beavers. Pt is asking that her records please be faxed to that hospital. Fax for their office is [phone] Attn: Dr. Bart Beavers. Please cx the u/s apts that are left on schedule, I have cx the OB apts Best contact number: [phone] (mobile) Optimal time of day to reach [...] will receive notification of the communication/outcome via [employer]. documented in this encounter Plan of Treatment [...] documented as of this encounter Care Teams Children'S Aide Relationship Specialty Start Date End Date Stephanie Allen PA [address] [place] [address] PCP - General 08/30/24 documented as of this encounter
--- OUTSIDE RECORDS SUMMARY | 2025-04-23 07:41 | XMS_ITS | Encounter Summary ---
Author Organization Healthcare Address [address] [place] [address] Care Team Providers Care Doughnut Batter Mixer Name Role Phone None, None Primary Care Provider [phone] Stephanie Allen Primary Care Provider [phone] Encounter Details Date Type Department Care Team (Late st Contact Info) Description 10/12/2022 Outside Procedure External Location [address] [place] [address] James Cowart MD [address] [place] [address] Social History Tobacco Use Types [...] AM EST Narrative 10/12/2022 8:21 [place] [address] Name: LETICIA PENNINGTON Exam Date: 10/12/2022 : 2000 Age 22 Gender: F Physician: JAMES COWART Facility: [facility] Facility HSV: Outpatient Exam: HYSTEROSALPINGOGRAM FLUOROSCOPY TIME [...] Thank you for referring LETICIA PENNINGTON to [facility]. Legally authenticated by POPE ANA Baptiste 2022-10-12 08:09:41 Procedure Note Provider, Generic [place] - 10/12/2022 [place] [address] Name: LETICIA PENNINGTON Exam Date: 10/12/2022 : 2000 Age 22 Gender: F Physician: JAMES COWART Facility: [facility] Facility HSV: Outpatient Exam: HYSTEROSALPINGOGRAM FLUOROSCOPY TIME [...] Thank you for referring LETICIA PENNINGTON to [facility]. Legally authenticated by POPE ANA Baptiste 2022-10-12 08:09:41 James Cowart MD IMG FLUOROSCOPY PROCEDURES Gayle l Result documented in this encounter Visit Diagnoses Not on filedocumented in this encounter Care Teams Doughnut Batter Mixer Relationship Specialty Start Date End Date None, None [address] [place] [address] PCP - General NONE FOUND 09/05/22 05/23/24 Stephanie Allen PA [address] [place] [address] PCP - General 08/30/24 documented as of this encounter
[2025-04-23 07:59] VITALS: BMI 56.3
[2025-04-23 08:09] VITALS: BMI 56.3
[2025-04-23 08:29] LABS: Microscopic, Urine URINE MICROSCOPIC (MICROSCOPIC)
[2025-04-23 08:34] LABS: Appearance,Urine CLEAR (Clear); Bilirubin,Urine Negative (Negative); Blood, Urine Negative (Negative); Color,Urine YELLOW (Yellow); Glucose,Urine (UA) Negative (Negative); Ketones,Urine Negative (Negative); Leukocyte Esterase,Urine TRACE (Negative); Nitrate,Urine Negative (Negative); Protein,Urine Negative (Negative); Specific Gravity, Urine 1.015 (1.005-1.030); Urobilinogen,Urine 0.2 EU/dl (0.2)
[2025-04-23] MEDS: MVI, ADULT NO.1 WITH VIT K 10 ML, THIAMINE HCL 100 MG, MAGNESIUM SULFATE 2 GM in LACTAT... 125 ML IV (08:37)
[2025-04-23 08:41] LABS: Chloride 103 mmol/L (98-107); Sodium 134 mmol/L (136-145)
[2025-04-23 08:44] LABS: Blood Urea Nitrogen 8 mg/dl (7-17); Creatinine Clearance Estimated 112 mL/min (50-200); Estimated Glomerular Filt Rate 121 ml/min (>60); GFR (African American) 146 ML/MIN (>60)
[2025-04-23 08:45] LABS: Carbon Dioxide 23 mmol/L (22.0-30.0); Glucose 116 mg/dl (74-100)
[2025-04-23 08:46] LABS: Basophils % 0.3 % (0.1-2.0); Eosinophils # 0.2 Kmm3 (0.0-0.4); Eosinophils % 1.6 % (0.1-12.0); Hematocrit 32.5 % (37.0-47.0); Hemoglobin 10.2 g/dL (12.2-16.2); Lymphocytes # 1.6 K/mm3 (0.7-4.5); Lymphocytes % 16.1 % (10-50); Mean Corpuscular HGB Conc 31.4 g/dL (31.8-35.4); Mean Corpuscular Hemoglobin 26.1 pg (27.0-31.2); Mean Corpuscular Volume 83.1 fl (81-99); Mean Platelet Volume 10.6 fl (7.4-10.4); Monocytes # 0.6 K/mm3 (0.1-1.0); Monocytes % 6.4 % (1.7-9.3); Neutrophils # 7.4 K/mm3 (1.8-7.8); Neutrophils % 74.6 % (37.0-80.0); Nucleated Red Blood Cells # 0 10^3/uL; Nucleated Red Blood Cells % 0 %; Platelet Count 280 K/mm3 (142-424); Red Blood Count 3.91 M/mm3 (4.20-5.40); Red Cell Distribution Width 15.8 % (11.5-17.5); Red Cell Distribution Width-SD 47.5 fL
[2025-04-23 09:06] LABS: Bacteria,Urine Trace /lpf
[2025-04-24 08:16] LABS: Rubella Antibodies, IgG <0.90 index (Immune >0.99); Rubella Antibodies, IgM <20.0 AU/mL (0.0-19.9)
== END 2025-04-23 10:39 | disposition home or self-care (01) ==
LOC: OBOUT 07:39 → OB 07:40
PROVIDERS: PCP Nurse Practitioner Family; Visit Provider Obstetrics & Gynecology
DX: Z34.83 Encounter for supervision of other normal pregnancy, third trimester (principal); H53.8 Other visual disturbances; R11.0 Nausea; Z3A.34 34 weeks gestation of pregnancy
CPT/HCPCS: 59025; 80048; 81001; 85025; 86762; 86850; 96360; 96361; 99212; G0463; J3411; J3475; J7120

== ENCOUNTER 2025-04-25 12:56 | Outpatient (CLI) | payer BC, SELFPAY ==
--- OUTSIDE RECORDS SUMMARY | 2025-04-25 12:59 | XMS_ITS | Clinical Summary ---
Author Organization [facility] Address [address] [place] [address] Care Team Providers Care Hub Cutter Apprentice Name Role Phone Stephanie Allen Primary Care Provider [phone] Allergies Active Allergy Reactions Criticality Noted Date [...] Description 02/21/2025 Telephone Obstetrics & Gynecology [address] [place] [address] James Cowart MD 01/29/2025 Telephone Obstetrics & Gynecology [address] [place] [address] James Cowart MD from Last 3 Months Family History 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 Relation Name Comments Alcohol abuse Father Earsel Vo Cancer Father Earsel Vo Diabetes Father Earsel Vo Kidney cancer Father Earsel Vo Obesity Father Earsel Vo Cancer Maternal Grandfather Jones Fischer Hearing [...] Health Maintenance Due Date Last Done Comments [facility]-Infant/Child/Adol SDOH Screenings 1998 [facility]-Varicella Vaccines (1 of 2 - 13+ 2-dose series) 2011 [facility]- SDOH Screenings 2016 [facility]-Adult SDOH Screenings 2016 [facility]-Hepatitis B Vaccines (1 of 3 - 19+ 3-dose series) 2017 [facility]-Pap Smear 2019 NSA-BHFYG-85 Vaccine (1 - season) 2024 [facility]-Influenza Vaccine (Season Ended) 2025 09/15/2020, 08/31/2010, 08/22/2007 [facility]-Depression Screening 01/22/2026 01/22/2025, 0304/2025 [facility]-DTaP,Tdap,and Td Vaccines (2 - Td or [...] Procedure Name Priority Date/Time Associated Diagnosis Comments HEPATITIS C ANTIBODY W/REFLEX TO HCV QUANT PCR Routine 11/01/2024 10:24 AM EST 9 weeks gestation of HIV 1/2 ANTIBODY/ANTIGEN SCREEN WITH REFLEX TO HIV I/II DIFFERENTIATION Routine 11/01/2024 10:24 AM EST 9 weeks gestation of from Last 3 Months or Most Recently Relevant to Health Maintenance Results * HIV 1 & 2 Antibody/Antigen Screen (11/01/2024 10:24 AM EST) HIV 1 & 2 Antibody/Antigen Screen Non Reactive Non Reactive 11/01/2024 1:54 PM EST [facility] Comment:Screening for HIV 1 & 2 antibodies, and P24 antigen is NONREACTIVE. No confirmatory testing is required. Blood Venous blood specimen / Unknown Venipuncture / Unknown 11/01/2024 10:24 AM EST 11/01/2024 12:52 PM EST Result Santino Cowart MD LAB BLOOD ORDERABLES Final Resu lt Performing Organization Address [facility] Co de Phone Number [facility] [address] [place] [address] * Hepatitis C Antibody w/Reflex to HCV Quant PCR (11/01/2024 10:24 AM EST) Hepatitis C Antibody Negative Negative 11/01/2024 1:31 PM EST [facility] Blood Venous blood specimen / Unknown Venipuncture / Unknown 11/01/2024 10:24 AM EST 11/01/2024 12:52 PM EST Result Santino Cowart MD LAB BLOOD ORDERABLES Final Resu lt Performing Organization Address City/[facility] Co de Phone Number [facility] [address] [place] [address] from Last 3 Months or Most Recently Relevant to Health Maintenance Additional Health Concerns Active Problems Noted Date Diagnosed Date CPM S24 PP LABOR (OBSTETRICS) 11/19/2024 Insurance ANTH Care Teams Hub Cutter Apprentice Relationship Specialty Start Date End Date Stephanie Allen PA [address] [place] [address] PCP - General 08/30/24
--- OUTSIDE RECORDS SUMMARY | 2025-04-25 12:59 | XMS_ITS | Clinical Summary ---
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
--- OUTSIDE RECORDS SUMMARY | 2025-04-25 12:59 | XMS_ITS | Referral Summary ---
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
--- OUTSIDE RECORDS SUMMARY | 2025-04-25 12:59 | XMS_ITS | Encounter Summary ---
Author Organization Healthcare Address [address] [place] [address] Care Team Providers Care Staff Air Tactical Officer Name Role Phone Stephanie Allen Primary Care Provider [phone] Encounter Details Date Type Department Care Team (Late st Contact Info) Description 01/29/2025 Telephone Obstetrics & Gynecology [address] [place] [address] James Cowart MD [address] [place] [address] Social History Tobacco Use Types [...] is wanting to do a JAZLYN to [facility]'s [facility] with Dr. Mahogany Beavers. Pt is asking that her records please be faxed to that hospital. Fax for their office is [phone] Attn: Dr. Bart Beavers. Please cx the u/s apts that are left on schedule, I have cx the OB apts Best contact number: [phone] (mobile) Optimal time of day to reach [...] will receive notification of the communication/outcome via [employer] documented in this encounter Plan of Treatment [...] documented as of this encounter Care Teams Staff Air Tactical Officer Relationship Specialty Start Date End Date Stephanie Allen PA [address] [place] [address] PCP - General 08/30/24 documented as of this encounter
--- OUTSIDE RECORDS SUMMARY | 2025-04-25 12:59 | XMS_ITS | Encounter Summary ---
Author Organization Healthcare Address [address] [place] [address] Care Team Providers Care Field Pipe Lines Supervisor Name Role Phone None, None Primary Care Provider [phone] Stephanie Allen Primary Care Provider [phone] Encounter Details Date Type Department Care Team (Late st Contact Info) Description 10/12/2022 Outside Procedure External Location [address] [place] [address] James Cowart MD [address] [place] [address] Social History Tobacco Use Types [...] AM EST Narrative 10/12/2022 8:21 [place] [address] Name: LETICIA PENNINGTON Exam Date: 10/12/2022 : [...] for referring LETICIA PENNINGTON to [facility]. Legally authenticated by POPE ANA Baptiste 2022-10-12 08:09:41 Procedure Note Provider, Generic New Site - 10/12/2022 [place] [address] Name: LETICIA PENNINGTON Exam Date: 10/12/2022 : [...] Thank you for referring LETICIA PENNINGTON to [facility]. Legally authenticated by POPE ANA Baptiste 2022-10-12 08:09:41 James Cowart MD IMG FLUOROSCOPY PROCEDURES Gayle l Result documented in this encounter Visit Diagnoses Not on filedocumented in this encounter Care Teams Field Pipe Lines Supervisor Relationship Specialty Start Date End Date None, None [address] [place] [address] PCP - General NONE FOUND 09/05/22 05/23/24 Stephanie Allen PA [address] [place] [address] PCP - General 08/30/24 documented as of this encounter
--- NOTE | 2025-04-25 13:12 | US_ITS ---
PROCEDURE: US OB BIOPHYSICAL PROFILE CLINICAL INDICATION: Needs PRO for oligohydramnios COMPARISON: US US OB FOLLOW UP from 01/28/2025 US US OB FOLLOW UP from 02/20/2025 US US OB TRANSVAGINAL from 02/20/2025 US OB FOLLOW UP from 02/24/2025 US OB BIOPHYSICAL PROFILE from 04/10/2025 US OB FOLLOW UP from 04/11/2025 FINDINGS: Transabdominal sonographic images of the uterus were obtained. From her established due date she is 34weeks 3days. The following parameters are obtained: Viable Fetus in the cephalic presentation with a posterior placenta grade 2. The cervix measures 3.98 cm Measurements: heart Rate = 144bpm Amniotic fluid index: 10.89cm, MVP 5.23 cm Qualitative AFV:2 Breathing movements: 2 Gross Body Movements: 2 Tone: 2 Biophysical profile score: 8 No obvious anomalies evident.Kidneys, profile, stomach, bladder, four-chamber heart, three-vessel cord appear normal. IMPRESSION: 1. Viable fetus in the cephalic presentation with a posterior placenta grade 2. 2. The fluid is within normal limits with an amniotic fluid index 10.89 cm, MVP 5.23 cm. 3. Biophysical profile is 8/8 with good breathing movement and movement seen. 4. Limited anatomical scan appears normal. Dictated by: Ashutosh Waldron MD 04/25/2025 16:31 Ashutosh Waldron MD in [place] 04/25/2025 16:31
== END 2025-04-25 23:59 | disposition home or self-care (01) ==
LOC: RAD 12:57
PROVIDERS: PCP Nurse Practitioner Family; Visit Provider Obstetrics & Gynecology
DX: O41.03X0 Oligohydramnios, third trimester, not applicable or unspecified (principal); O99.213 Obesity complicating pregnancy, third trimester; E66.01 Morbid (severe) obesity due to excess calories; Z3A.34 34 weeks gestation of pregnancy
CPT/HCPCS: 76819

== ENCOUNTER 2025-04-27 13:13 | Observation (INO) | payer BC, SELFPAY ==
--- OUTSIDE RECORDS SUMMARY | 2025-04-27 09:58 | XMS_ITS | Encounter Summary ---
Author Organization Healthcare Address [address] [place] [address] Care Team Providers Care Performance Improvement Specialist Name Role Phone None, None Primary Care Provider [phone] Stephanie Allen Primary Care Provider [phone] Encounter Details Date Type Department Care Team (Late st Contact Info) Description 10/12/2022 Outside Procedure External Location [address] [place] [address] James Cowart MD [address] [place] [address] Social History Tobacco Use Types [...] AM EST Narrative 10/12/2022 8:21 [place] [address] Name: LETICIA PENNINGTON Exam Date: 10/12/2022 : 2000 Age 22 Gender: F Physician: JAMES COWART Facility: [facility] Facility HSV: Outpatient Exam: HYSTEROSALPINGOGRAM FLUOROSCOPY [...] Thank you for referring LETICIA PENNINGTON to [facility]. Legally authenticated by POPE ANA Baptiste 2022-10-12 08:09:41 Procedure Note Provider, Generic [place] - 10/12/2022 [place] [address] Name: LETICIA PENNINGTON Exam Date: 10/12/2022 : 2000 Age 22 Gender: F Physician: JAMES COWART Facility: [facility] Facility HSV: Outpatient Exam: HYSTEROSALPINGOGRAM FLUOROSCOPY [...] Thank you for referring LETICIA PENNINGTON to [facility]. Legally authenticated by POPE ANA Baptiste 2022-10-12 08:09:41 James Cowart MD IMG FLUOROSCOPY PROCEDURES Gayle l Result documented in this encounter Visit Diagnoses Not on filedocumented in this encounter Care Teams Performance Improvement Specialist Relationship Specialty Start Date End Date None, None [address] [place] [address] PCP - General NONE FOUND 09/05/22 05/23/24 Stephanie Allen PA [address] [place] [address] PCP - General 08/30/24 documented as of this encounter
--- OUTSIDE RECORDS SUMMARY | 2025-04-27 09:58 | XMS_ITS | Clinical Summary ---
Author Organization [employer] Address [address] [place] [address] Care Team Providers Care Novelty Twister Tender Name Role Phone Stephanie Allen PA-C Primary Care Provider Allergies Active Allergy Reactions Criticality Noted Date Comments Propranolol 09/01/2024 Medications No known medications Social History Tobacco Use Types Packs/Day Years Used Date Smoking Tobacco: Former Cigarettes Smokeless Tobacco: Never Tobacco Cessation:Counseling Given: Not Answered Alcohol Use Standard Drinks/Week Comments Never 0 (1 standard drink = 0.6 oz pur e alcohol) Food Insecurity Answer Date Recorded Food run [...] Date Deyvi rded Speak language other than Icelandic at home Not on file 09/01/2024 Want help with school or training Not on file 09/01/2024 Substance Use Answer Date Recorded Used prescription meds for non-medical reasons N ot on file 09/01/2024 Used illegal drugs past 12 months Not on file 09/01/2024 Comments No Sex and Gender Information Value Date Recorded Sex Assigned at Not on file 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 Gender Identity Not on file Sexual Orientation [...] Panel 2018 Pap Smear 2019 COVID-19 VACCINE (2023-2 5 season) 2024 Influenza Vaccine (Season Ended) 2025 09/15/20 20 Tobacco Cessation Counseling and Screening (12+) 09/01/2025 09/01/2024 DTAP/TDAP/TD VACCINES (2 - T d or Tdap) 10/30/2028 10/30/2018 Pneumococcal Vaccine: 0-49 Years Aged Out No longer eligible based on patient's age to complete this topic Insurance [address] [id number] BLUE CROSS/BLUE SHIELD Care Teams Novelty Twister Tender Relationship Specialty Start Date End Date Stephanie Allen PA-C [address] [facility] [address] [address] PCP - General 09/01/24
--- OUTSIDE RECORDS SUMMARY | 2025-04-27 09:58 | XMS_ITS | Referral Summary ---
Author Organization [employer] Address [address] [place] [address] Care Team Providers Care Consulting Marine Engineer Name Role Phone Stephanie Allen PA-C Primary Care Provider [phone] Allergies Active Allergy Reactions Criticality Noted Date [...] Date Deyvi rded Speak language other than Vietnamese at home Not on file 09/01/2024 Want help with school or training Not on file 09/01/2024 Substance Use Answer Date Recorded Used prescription meds for non-medical reasons N ot on file 09/01/2024 Used illegal drugs past 12 months Not on file 09/01/2024 Comments No Sex and Gender Information Value Date Recorded Sex Assigned at Not on file 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
--- OUTSIDE RECORDS SUMMARY | 2025-04-27 09:59 | XMS_ITS | Data Portability ---
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 Plan of Treatment Reminders Order Date Submit Date Provider Last Modified By Organization Details Last Modified Time Details Appointments None recorded. Lab CBC w/ auto diff 2022 023 [email or web address] 6 [facility], [address] [place], [address], 3 08:47:10 ferritin, serum or plasma 2022 023 [email or web address] 6 [facility], [address] [place], [address], 3 08:47:10 iron + total iron-bindin g capacity (TIBC), serum 2022 023 [email or web address] 6 [facility], [address] [place], [address], 3 08:47:10 CMP, serum or plasma 2022 023 [email or web address] 6 [facility], [address] [place], [address], 3 08:47:10 CBC w/ auto diff 2022 023 MIESHA [facility], [address], [address], [place], [address], 3 07:14:24 vitamin D, 25-hydroxy, total, serum 2022 023 MIESHA [facility], [address], [address], [place], [address], 3 07:14:27 vitamin B12 + folate, serum or blood 2022 023 MIESHA [facility], [address], [address], [place], [address], 3 07:14:26 magnesium, serum or plasma 2022 023 MIESHA [facility], [address], [address], [place], [address], 3 07:14:28 TSH + free T4, serum 2022 023 MIESHA [facility], [address], [address], [place], [address], 3 07:14:23 CMP, serum or plasma 2022 023 MIESHA [facility], [address], [address], [place], [address], 3 07:14:25 iron + TIBC + ferritin, serum 2022 023 MIESHA [facility], [address], [address], [place], [address], 3 07:14:21 iron + TIBC + ferritin, serum 2022 023 MIESHA [facility], [address], [address], [place], [address], 3 08:21:13 CBC w/ auto diff 2022 023 HARRISON [facility], [address], [facility] [address], [place], [address], 3 08:21:13 CMP, serum or plasma 2022 023 HARRISON [facility], [address], [facility] [address], [place], [address], 3 08:21:15 Referral behavioral health referral 2022 023 [email or web address] 3 [facility], [facility], [address], [place], [address], 3 08:01:02 Procedures None recorded. Surgeries None recorded. Imaging None recorded. Medication Orders Vitamin D3 125 mcg (5,000 unit) tablet 2022 023 [facility], [address] [place] [address], [id number], 3 16:18:04 duloxetine 60 mg capsule,del ayed release 2022 023 [email or web address] 2 [facility], [address] [place] [address], [id number], 3 14:25:59 Wegovy 0.25 mg/0.5 mL subcutaneou s pen injector 2022 023 [email or web address] 9 [facility] [place], [address], 3 08:44:47 Flonase Allergy Relief 50 mcg/actuati on nasal spray,suspe nsion 2022 023 [email or web address] 2 [facility], [address] [place], [address], 3 16:23:10 Zyrtec 10 mg tablet 2022 023 [email or web address] [id number] 9 [facility], [address] [place], [address], 3 08:44:34 Wellbutrin SR 150 mg tablet, 12 hr sustained-r elease [address] [facility], [address] [place], [address], 3 08:44:29 Seroquel 100 mg tablet 2022 023 [email or web address] [id number] 9 [facility], [address] [place], [address], 3 08:44:54 Patient TargetsNo targets recorded. Patient InstructionsNo instructions recorded. Reason for Referral Behavioral Health Referral f or Mixed anxiety and depressive disorder Referring Physician: Unruly Rosen, Infectious Disease, Encounter Date: 08/08/2023 Results Created Date Observation Date Name Description Value Unit Range Abnormal Flag Note LastModifiedBy Organization Detail LastModifiedTime 07/18/2007/19/2023 FE+TI BC+FE R iron bind.cap.(TI BC) 427 ug/dL 250-45 0 Not Available [facility] ([facility]) [address] [place], [address], 07/19/2023 08:21:12 07/18/20 23 07/19/2023 FE+TI BC+FE R UIBC 396 ug/dL 131-42 5 Not Available [facility] ([facility]) [address] [place], [address], 07/19/2023 08:21:12 07/18/20 23 07/19/2023 FE+TI BC+FE R iron 31 ug/dL 27-159 Not Available [facility] ([facility]) [address] [place], [address], 07/19/2023 08:21:12 07/18/20 23 07/19/2023 FE+TI BC+FE R iron saturation 7 % 15-55 alert low Not Available [facility] ([facility]) [address] [place], [address], 07/19/2023 08:21:12 07/18/20 23 07/19/2023 FE+TI BC+FE R ferritin 61 NG/mL 15-150 Not Available [facility] ([facility]) [address] [place], [address], 07/19/2023 08:21:12 07/18/20 23 07/19/2023 CBC WITH DIFFE RENTI AL/PL ATELE T WBC 9.7 x10e3 /uL 3.4-10 .8 Not Available [facility] ([facility]) [address] [place], [address], 07/19/2023 08:21:13 07/18/20 23 07/19/2023 CBC WITH DIFFE RENTI AL/PL ATELE T RBC 4.95 x10e6 /uL 3.77-5 .28 Not Available [facility] ([facility]) [address] [place], [address], 07/19/2023 08:21:13 07/18/2007/19/2023 CBC WITH DIFFE RENTI AL/PL ATELE T hemoglobin 13.1 g/dL 11.1-1 5.9 Not Available [facility] ([facility]) [address] [place], [address], 07/19/2023 08:21:13 07/18/20 23 07/19/2023 CBC WITH DIFFE RENTI AL/PL ATELE T hematocrit 40.6 % 34.0-4 6.6 Not Available [facility] ([facility]) [address] [place], [address], 07/19/2023 08:21:13 07/18/20 23 07/19/2023 CBC WITH DIFFE RENTI AL/PL ATELE T MCV 82 fL 79-97 Not Available [facility] ([facility]) [address] [facility], [place], [address], 07/19/2023 08:21:13 07/18/20 23 07/19/2023 CBC WITH DIFFE RENTI AL/PL ATELE T MCH 26.5 pg 26.6-3 3.0 below low normal Not Available [facility] ([facility]) [address] [facility], [place], [address], 07/19/2023 08:21:13 07/18/20 23 07/19/2023 CBC WITH DIFFE RENTI AL/PL ATELE T MCHC 32.3 g/dL 31.5-3 5.7 Not Available [facility] ([facility]) [address] [facility], [place], [address], 07/19/2023 08:21:13 07/18/20 23 07/19/2023 CBC WITH DIFFE RENTI AL/PL ATELE T RDW 13.1 % 11.7-1 5.4 Not Available [facility] ([facility]) [address] [facility], [place], [address], 07/19/2023 08:21:13 07/18/20 23 07/19/2023 CBC WITH DIFFE RENTI AL/PL ATELE T platelets 287 x10e3 /uL 150-45 0 Not Available [facility] ([facility]) [address] [place], [address], 07/19/2023 08:21:13 07/18/20 23 07/19/2023 CBC WITH DIFFE RENTI AL/PL ATELE T neutrophils 65 % not estab. Not Available [facility] ([facility]) [address] [place], [address], 07/19/2023 08:21:13 07/18/20 23 07/19/2023 CBC WITH DIFFE RENTI AL/PL ATELE T lymphs 24 % not estab. Not Available [facility] ([facility]) [address] [facility], [place], [address], 07/19/2023 08:21:13 07/18/20 23 07/19/2023 CBC WITH DIFFE RENTI AL/PL ATELE T monocytes 7 % not estab. Not Available [facility] ([facility]) [address] [facility], [place], [address], 07/19/2023 08:21:13 07/18/20 23 07/19/2023 CBC WITH DIFFE RENTI AL/PL ATELE T eos 3 % not estab. Not Available [facility] ([facility]) [address] [facility], [place], [address], 07/19/2023 08:21:13 07/18/20 23 07/19/2023 CBC WITH DIFFE RENTI AL/PL ATELE T basos 0 % not estab. Not Available [facility] ([facility]) [address] [place], [address], 07/19/2023 08:21:13 07/18/20 23 07/19/2023 CBC WITH DIFFE RENTI AL/PL ATELE T immature cells CIGAR SORTER Not Available [facility] ([facility]) [address] [place], [address], 07/19/2023 08:21:13 07/18/20 23 07/19/2023 CBC WITH DIFFE RENTI AL/PL ATELE T neutrophils (absolute) 6.4 x10e3 /uL 1.4-7. 0 Not Available [facility] ([facility]) [address] [place], [address], 07/19/2023 08:21:13 07/18/20 23 07/19/2023 CBC WITH DIFFE RENTI AL/PL ATELE T lymphs (absolute) 2.3 x10e3 /uL 0.7-3. 1 Not Available [facility] ([facility]) [address] [facility], [place], [address], 07/19/2023 08:21:13 07/18/20 23 07/19/2023 CBC WITH DIFFE RENTI AL/PL ATELE T monocytes(ab solute) 0.6 x10e3 /uL 0.1-0. 9 Not Available [facility] ([facility]) [address] [facility], [place], [address], 07/19/2023 08:21:13 07/18/20 23 07/19/2023 CBC WITH DIFFE RENTI AL/PL ATELE T eos (absolute) 0.3 x10e3 /uL 0.0-0. 4 Not Available [facility] ([facility]) [address] [facility], [place], [address], 07/19/2023 08:21:13 07/18/20 23 07/19/2023 CBC WITH DIFFE RENTI AL/PL ATELE T baso (absolute) 0.0 x10e3 /uL 0.0-0. 2 Not Available [facility] ([facility]) [address] [facility], [place], [address], 07/19/2023 08:21:13 07/18/20 23 07/19/2023 CBC WITH DIFFE RENTI AL/PL ATELE T immature granulocytes 1 % not estab. Not Available [facility] ([facility]) [address] [facility], [place], [address], 07/19/2023 08:21:13 07/18/20 23 07/19/2023 CBC WITH DIFFE RENTI AL/PL ATELE T immature grans (abs) 0.1 x10e3 /uL 0.0-0. 1 Not Available [facility] ([facility]) [address] [facility], [place], [address], 07/19/2023 08:21:13 07/18/20 23 07/19/2023 CBC WITH DIFFE RENTI AL/PL ATELE T NRBC CIGAR SORTER Not Available [facility] ([facility]) [address] [facility], [place], [address], 07/19/2023 08:21:13 07/18/20 23 07/19/2023 CBC WITH DIFFE RENTI AL/PL ATELE T hematology comments: CIGAR SORTER Not Available [facility] ([facility]) [address] [facility], [place], [address], 07/19/2023 08:21:13 07/18/20 23 07/19/2023 COMP. METAB OLIC PANEL (14) glucose 93 mg/dL 70-99 Not Available [facility] ([facility]) [address] [facility], [place], [address], 07/19/2023 08:21:15 07/18/20 23 07/19/2023 COMP. METAB OLIC PANEL (14) BUN 14 mg/dL 6-20 Not Available [facility] ([facility]) [address] [place], [address], 07/19/2023 08:21:15 07/18/20 23 07/19/2023 COMP. METAB OLIC PANEL (14) creatinine 0.77 mg/dL 0.57-1 .00 Not Available [facility] ([facility]) [address] [facility], [place], [address], 07/19/2023 08:21:15 07/18/20 23 07/19/2023 COMP. METAB OLIC PANEL (14) eGFR 110 mL/mi n/1.7 3 >59 Not Available [facility] ([facility]) [address] [place], [address], 07/19/2023 08:21:15 07/18/20 23 07/19/2023 COMP. METAB OLIC PANEL (14) BUN/creatini ne ratio 18 9-23 Not Available [facility] ([facility]) [address] [facility] [place] [place], [address], 07/19/2023 08:21:15 07/18/20 23 07/19/2023 COMP. METAB OLIC PANEL (14) sodium 141 mmol/ L 134-14 4 Not Available [facility] ([facility]) [address] [place], [address], 07/19/2023 08:21:15 07/18/20 23 07/19/2023 COMP. METAB OLIC PANEL (14) potassium 4.1 mmol/ L 3.5-5. 2 Not Available [facility] ([facility]) [address] [facility] [place] [place], [address], 07/19/2023 08:21:15 07/18/20 23 07/19/2023 COMP. METAB OLIC PANEL (14) chloride 104 mmol/ L 96-106 Not Available [facility] ([facility]) [address] [facility] [place], [address], 07/19/2023 08:21:15 07/18/20 23 07/19/2023 COMP. METAB OLIC PANEL (14) carbon dioxide, total 21 mmol/ L 20-29 Not Available [facility] ([facility]) [address] [facility] [place], [address], 07/19/2023 08:21:15 07/18/20 23 07/19/2023 COMP. METAB OLIC PANEL (14) calcium 9.4 mg/dL 8.7-10 .2 Not Available [facility] ([facility]) [address] [facility] [place], [address], 07/19/2023 08:21:15 07/18/20 23 07/19/2023 COMP. METAB OLIC PANEL (14) protein, total 7.2 g/dL 6.0-8. 5 Not Available [facility] ([facility]) [address] [facility] [place], [address], 07/19/2023 08:21:15 07/18/20 23 07/19/2023 COMP. METAB OLIC PANEL (14) albumin 4.3 g/dL 4.0-5. 0 Not Available [facility] ([facility]) [address] [facility], [place], [address], 07/19/2023 08:21:15 07/18/20 23 07/19/2023 COMP. METAB OLIC PANEL (14) globulin, total 2.9 g/dL 1.5-4. 5 Not Available [facility] ([facility]) [address] [facility], [place], [address], 07/19/2023 08:21:15 07/18/20 23 07/19/2023 COMP. METAB OLIC PANEL (14) A/G ratio 1.5 1.2-2. 2 Not Available [facility] ([facility]) [address] [facility], [place], [address], 07/19/2023 08:21:15 07/18/20 23 07/19/2023 COMP. METAB OLIC PANEL (14) bilirubin, total 0.2 mg/dL 0.0-1. 2 Not Available [facility] ([facility]) [address] [facility], [place], [address], 07/19/2023 08:21:15 07/18/20 23 07/19/2023 COMP. METAB OLIC PANEL (14) alkaline phosphatase 80 IU/L 44-121 Not Available [facility] ([facility]) [address] [facility], [place], [address], 07/19/2023 08:21:15 07/18/20 23 07/19/2023 COMP. METAB OLIC PANEL (14) AST (SGOT) 14 IU/L 0-40 Not Available [facility] ([facility]) [address] [place], [address], 07/19/2023 08:21:15 07/18/20 23 07/19/2023 COMP. METAB OLIC PANEL (14) ALT (SGPT) 10 IU/L 0-32 Not Available [facility] ([facility]) [address] [place], [address], 07/19/2023 08:21:15 08/08/2008/09/2023 FE+TI BC+FE R iron bind.cap.(TI BC) 369 ug/dL 250-45 0 Not Available [facility] ([facility]) [address] [place], [address], 08/09/2023 07:14:21 08/08/2008/09/2023 FE+TI BC+FE R UIBC 334 ug/dL 131-42 5 Not Available [facility] ([facility]) [address] [place], [address], 08/09/2023 07:14:21 08/08/2008/09/2023 FE+TI BC+FE R iron 35 ug/dL 27-159 Not Available [facility] ([facility]) [address] [place], [address], 08/09/2023 07:14:21 08/08/2008/09/2023 FE+TI BC+FE R iron saturation 9 % 15-55 alert low Not Available [facility] ([facility]) [address] [place], [address], 08/09/2023 07:14:21 08/08/2008/09/2023 FE+TI BC+FE R ferritin 53 NG/mL 15-150 Not Available [facility] ([facility]) [address] [place], [address], 08/09/2023 07:14:21 08/08/2008/09/2023 TSH+F REE T4 TSH 0.925 uIU/m L 0.450- 4.500 Not Available [facility] ([facility]) [address] [facility] [place], [address], 08/09/2023 07:14:22 08/08/2008/09/2023 TSH+F REE T4 T4,free(dire ct) 0.96 NG/dL 0.82-1 .77 Not Available [facility] ([facility]) [address] [facility], [place], [address], 08/09/2023 07:14:22 08/08/2008/09/2023 CBC WITH DIFFE RENTI AL/PL ATELE T WBC 7.7 x10e3 /uL 3.4-10 .8 Not Available [facility] ([facility]) [address] [place], [address], 08/09/2023 07:14:24 08/08/2008/09/2023 CBC WITH DIFFE RENTI AL/PL ATELE T RBC 4.90 x10e6 /uL 3.77-5 .28 Not Available [facility] ([facility]) [address] [facility], [place], [address], 08/09/2023 07:14:24 08/08/2008/09/2023 CBC WITH DIFFE RENTI AL/PL ATELE T hemoglobin 13.2 g/dL 11.1-1 5.9 Not Available [facility] ([facility]) [address] [place], [address], 08/09/2023 07:14:24 08/08/2008/09/2023 CBC WITH DIFFE RENTI AL/PL ATELE T hematocrit 40.4 % 34.0-4 6.6 Not Available [facility] ([facility]) [address] [place], [address], 08/09/2023 07:14:24 08/08/2008/09/2023 CBC WITH DIFFE RENTI AL/PL ATELE T MCV 82 fL 79-97 Not Available [facility] ([facility]) [address] [facility], [place], [address], 08/09/2023 07:14:24 08/08/2008/09/2023 CBC WITH DIFFE RENTI AL/PL ATELE T MCH 26.9 pg 26.6-3 3.0 Not Available [facility] ([facility]) [address] [facility], [place], [address], 08/09/2023 07:14:24 08/08/2008/09/2023 CBC WITH DIFFE RENTI AL/PL ATELE T MCHC 32.7 g/dL 31.5-3 5.7 Not Available [facility] ([facility]) [address] [facility], [place], [address], 08/09/2023 07:14:24 08/08/2008/09/2023 CBC WITH DIFFE RENTI AL/PL ATELE T RDW 13.3 % 11.7-1 5.4 Not Available [facility] ([facility]) [address] [facility], [place], [address], 08/09/2023 07:14:24 08/08/2008/09/2023 CBC WITH DIFFE RENTI AL/PL ATELE T platelets 298 x10e3 /uL 150-45 0 Not Available [facility] ([facility]) [address] [facility], [place], [address], 08/09/2023 07:14:24 08/08/2008/09/2023 CBC WITH DIFFE RENTI AL/PL ATELE T neutrophils 68 % not estab. Not Available [facility] ([facility]) [address] [facility], [place], [address], 08/09/2023 07:14:24 08/08/2008/09/2023 CBC WITH DIFFE RENTI AL/PL ATELE T lymphs 23 % not estab. Not Available [facility] ([facility]) [address] [facility], [place], [address], 08/09/2023 07:14:24 08/08/2008/09/2023 CBC WITH DIFFE RENTI AL/PL ATELE T monocytes 6 % not estab. Not Available [facility] ([facility]) [address] [facility], [place], [address], 08/09/2023 07:14:24 08/08/2008/09/2023 CBC WITH DIFFE RENTI AL/PL ATELE T eos 3 % not estab. Not Available [facility] ([facility]) [address] [facility], [place], [address], 08/09/2023 07:14:24 08/08/2008/09/2023 CBC WITH DIFFE RENTI AL/PL ATELE T basos 0 % not estab. Not Available [facility] ([facility]) [address] [facility], [place], [address], 08/09/2023 07:14:24 08/08/2008/09/2023 CBC WITH DIFFE RENTI AL/PL ATELE T immature cells CIGAR SORTER Not Available [facility] ([facility]) [address] [facility], [place], [address], 08/09/2023 07:14:24 08/08/2008/09/2023 CBC WITH DIFFE RENTI AL/PL ATELE T neutrophils (absolute) 5.2 x10e3 /uL 1.4-7. 0 Not Available [facility] ([facility]) [address] [facility], [place], [address], 08/09/2023 07:14:24 08/08/2008/09/2023 CBC WITH DIFFE RENTI AL/PL ATELE T lymphs (absolute) 1.8 x10e3 /uL 0.7-3. 1 Not Available [facility] ([facility]) [address] [place], [address], 08/09/2023 07:14:24 08/08/20 23 08/09/2023 CBC WITH DIFFE RENTI AL/PL ATELE T monocytes(ab solute) 0.5 x10e3 /uL 0.1-0. 9 Not Available [facility] ([facility]) [address] [facility], [place], [address], 08/09/2023 07:14:24 08/08/2008/09/2023 CBC WITH DIFFE RENTI AL/PL ATELE T eos (absolute) 0.2 x10e3 /uL 0.0-0. 4 Not Available [facility] ([facility]) [address] [facility], [place], [address], 08/09/2023 07:14:24 08/08/2008/09/2023 CBC WITH DIFFE RENTI AL/PL ATELE T baso (absolute) 0.0 x10e3 /uL 0.0-0. 2 Not Available [facility] ([facility]) [address] [facility], [place], [address], 08/09/2023 07:14:24 08/08/2008/09/2023 CBC WITH DIFFE RENTI AL/PL ATELE T immature granulocytes 0 % not estab. Not Available [facility] ([facility]) [address] [facility], [place], [address], 08/09/2023 07:14:24 08/08/2008/09/2023 CBC WITH DIFFE RENTI AL/PL ATELE T immature grans (abs) 0.0 x10e3 /uL 0.0-0. 1 Not Available [facility] ([facility]) [address] [facility], [place], [address], 08/09/2023 07:14:24 08/08/2008/09/2023 CBC WITH DIFFE RENTI AL/PL ATELE T NRBC CIGAR SORTER Not Available [facility] ([facility]) [address] [place], [address], 08/09/2023 07:14:24 08/08/20 23 08/09/2023 CBC WITH DIFFE RENTI AL/PL [place]ON[place] T hematology comments: CIGAR SORTER Not Available [facility] ([facility]) [address] [facility], [place], [address], 08/09/2023 07:14:24 08/08/20 23 08/09/2023 COMP. METAB OLIC PANEL (14) glucose 99 mg/dL 70-99 Not Available [facility] ([facility]) [address] [facility], [place], [address], 08/09/2023 07:14:25 08/08/2008/09/2023 COMP. METAB OLIC PANEL (14) BUN 17 mg/dL 6-20 Not Available [facility] ([facility]) [address] [facility], [place], [address], 08/09/2023 07:14:25 08/08/20 23 08/09/2023 COMP. METAB OLIC PANEL (14) creatinine 0.83 mg/dL 0.57-1 .00 Not Available [facility] ([facility]) [address] [facility], [place], [address], 08/09/2023 07:14:25 08/08/20 23 08/09/2023 COMP. METAB OLIC PANEL (14) eGFR 100 mL/mi n/1.7 3 >59 Not Available [facility] ([facility]) [address] [facility], [place], [address], 08/09/2023 07:14:25 08/08/20 23 08/09/2023 COMP. METAB OLIC PANEL (14) BUN/creatini ne ratio 20 - Not Available [facility] ([facility]) [address] [place], [address], 08/09/2023 07:14:25 08/08/20 23 08/09/2023 COMP. METAB OLIC PANEL (14) sodium 144 mmol/ L 134-14 4 Not Available [facility] ([facility]) [address] [facility] [place], [address], 08/09/2023 07:14:25 08/08/20 23 08/09/2023 COMP. METAB OLIC PANEL (14) potassium 4.4 mmol/ L 3.5-5. 2 Not Available [facility] ([facility]) [address] [facility] [place], [address], 08/09/2023 07:14:25 08/08/20 23 08/09/2023 COMP. METAB OLIC PANEL (14) chloride 105 mmol/ L 96-106 Not Available [facility] ([facility]) [address] [facility] [place], [address], 08/09/2023 07:14:25 08/08/20 23 08/09/2023 COMP. METAB OLIC PANEL (14) carbon dioxide, total 22 mmol/ L 20-29 Not Available [facility] ([facility]) [address] [facility] [place], [address], 08/09/2023 07:14:25 08/08/2008/09/2023 COMP. METAB OLIC PANEL (14) calcium 9.2 mg/dL 8.7-10 .2 Not Available [facility] ([facility]) [address] [place], [address], 08/09/2023 07:14:25 08/08/2008/09/2023 COMP. METAB OLIC PANEL (14) protein, total 6.9 g/dL 6.0-8. 5 Not Available [facility] ([facility]) [address] [place], [address], 08/09/2023 07:14:25 08/08/20 23 08/09/2023 COMP. METAB OLIC PANEL (14) albumin 4.3 g/dL 4.0-5. 0 Not Available [facility] ([facility]) [address] [place], [address], 08/09/2023 07:14:25 08/08/20 23 08/09/2023 COMP. METAB OLIC PANEL (14) globulin, total 2.6 g/dL 1.5-4. 5 Not Available [facility] ([facility]) [address] [facility], [place], [address], 08/09/2023 07:14:25 08/08/20 23 08/09/2023 COMP. METAB OLIC PANEL (14) A/G ratio 1.7 1.2-2. 2 Not Available [facility] ([facility]) [address] [facility], [place], [address], 08/09/2023 07:14:25 08/08/20 23 08/09/2023 COMP. METAB OLIC PANEL (14) bilirubin, total <0.2 mg/dL 0.0-1. 2 Not Available [facility] ([facility]) [address] [facility], [place], [place], [address], 08/09/2023 07:14:25 08/08/20 23 08/09/2023 COMP. METAB OLIC PANEL (14) alkaline phosphatase 80 IU/L 44-121 Not Available [facility] ([facility]) [address] [facility], [place], [address], 08/09/2023 07:14:25 08/08/20 23 08/09/2023 COMP. METAB OLIC PANEL (14) AST (SGOT) 13 IU/L 0-40 Not Available [facility] ([facility]) [address] [facility], [place], [address], 08/09/2023 07:14:25 08/08/20 23 08/09/2023 COMP. METAB OLIC PANEL (14) ALT (SGPT) 14 IU/L 0-32 Not Available [facility] ([facility]) [address] [facility], [place], [address], 08/09/2023 07:14:25 08/08/20 23 08/09/2023 VITAM IN B12 AND FOLAT E vitamin B12 437 pg/mL 232-12 45 Not Available [facility] ([facility]) [address] [facility], [place], [address], 08/09/2023 07:14:26 08/08/20 23 08/09/2023 VITAM IN B12 AND FOLAT E folate (folic acid), serum 13.0 NG/mL >3.0 A serum folat e sandra ntrat ion of less than 3.1 ng/mL is consi dered to repre sent clini gisell defic iency . Not Available [facility] ([facility]) [address] [facility], [place], [address], 08/09/2023 07:14:26 08/08/20 23 08/09/2023 VITAM IN [...] and D. Alicia avalos [place]: The [facility] Press . 2. Aiden rivera MF, Farrah dixon [place], Hillary off-F errjaelyn i NUÑEZ, et al. Evalu ation , treat ment, and preve ntion of vitam in D defic iency : an Endoc rine Socie ty clini gisell pract ice guide line. JCEM. 2010; 96(7) :1911 -30. Not Available [facility] ([facility]) [address] [facility], [place], [address], 08/09/2023 07:14:27 08/08/20 23 08/09/2023 MAGNE SIUM magnesium 1.9 mg/dL 1.6-2. 3 Not Available [facility] ([facility]) [address] [facility], [place], [address], 08/09/2023 07:14:28 05/26/20 23 05/26/2023 PAP nap (PROC ) No observ ation record ed. [email or web address] Not Available 2022 09:46:47 Result Notes None recorded. Procedures Surgical History Date Name Laterality Status Provider Name and Address Organization Details Recorded Time 03/18/2020 Date of Last Pap Smear completed MARGARETBart MELTON [facility] [place] 04/05/2023 13:05:37 10/30/2011 Tonsillecto my/Adenoide ctomy completed [facility] JONES MELTON [facility] [place] 04/05/2023 13:05:37 Imaging Results None recorded. Procedure [...] propionate 50 mcg/actuati on nasal spray,suspe nsion Crowley 1 spray every day by intranasa l [...] Updated DateTime 3 157.48 cm 50.1 kg/m2 772573. 31 g 97.7 [degF] 98 % 98 % 105 /min 92 mm[Hg] 66 mm[Hg] MARGARET JONES MULTANI - LPNT [facility] [place] 3 14:59:03 Date Recorded Body height Body mass index (BMI) Body weight Body temperature Oxygen saturation Oxygen saturation in Arterial blood by Pulse oximetry Heart rate Systolic blood pressure Diastolic blood pressure Provider Name and Address Organization Details Last Updated DateTime 3 157.48 cm 47.6 kg/m2 486314. 42 g 98.2 [degF] 99 % 99 % 103 /min 124 mm[Hg] 86 mm[Hg] MARGARET JONES MULTANI - LPNT [facility] [place] 3 15:58:53 Date Recorded Body height Body weight Body mass index (BMI) Body temperature Oxygen saturation Oxygen saturation in Arterial blood by Pulse oximetry Heart rate Systolic blood pressure Diastolic blood pressure Provider Name and Address Organization Details Last Updated DateTime 3 157.48 cm 175266. 72 g 49.9 kg/m2 97.7 [degF] 100 % 100 % 128 /min 100 mm[Hg] 76 mm[Hg] MARGARET JONES MULTANI - LUANANT [facility] [place] 3 10:09:53 Date Recorded Body height Body mass index (BMI) Body weight Body temperature Oxygen saturation Oxygen saturation in Arterial blood by Pulse oximetry Heart rate Systolic blood pressure Diastolic blood pressure Provider Name and Address Organization Details Last Updated DateTime 3 157.48 cm 51.9 kg/m2 224351. 87 g 98 [degF] 98 % 98 % 91 /min 127 mm[Hg] 74 mm[Hg] Agnes Khalil LPKRANTHI [facility] [place] 3 08:43:53 Date Recorded Body height Body mass index (BMI) Body weight Body temperature Oxygen saturation Oxygen saturation in Arterial blood by Pulse oximetry Heart rate Systolic blood pressure Diastolic blood pressure Provider Name and Address Organization Details Last Updated DateTime 3 157.48 cm 51 kg/m2 455890. 27 g 97.5 [degF] 99 % 99 % 129 /min 124 mm[Hg] 90 mm[Hg] Dheeraj Santana NERISSA MELTON [facility] [place] 3 15:59:39 Social History Question Answer Notes LastModified by [employer] ion Details LastModified Time Tobacco Smoking Status Former Smoker MARGARET PELYAOCYRUS [facility]an [facility] [place] 04/05/2023 13:05:37 Do You Have An Advance [...] Functional Status Question Answer Note LastModified by [employer] ion Details LastModified Time Do you use any illicit or recreational drugs? Yes Information not available 04/05/2023 Do you or have you ever used any other forms of tobacco or nicotine? Yes [email or web address] Information not available 06/02/2023 What is your level of alcohol consumption? Occasional Information not available 04/05/2023 Do you or have you ever used smokeless tobacco? 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 Current user of electronic cigarettes [email or web address] Information not available 06/02/2023 What is your exercise level? Moderate Information not available 04/05/2023 Mental Status Question Answer Note LastModified by Organization D etails LastModified Time Do you feel stressed (tense, restless, nervous, or anxious, or unable to sleep at night)? [id number] Information not available 04/05/2023 Family History Relationship [...] SNOMED-CT Code Diagnosis ICD10 Code Diagnosis Note [id number] Unruly Bustillo in, [employer] [facility] [address] [facility] [address] [place] [address] 04/05/2023 13:02:12 04/05/2023 13:39:51 Adult health examination 129426058 Z00.00 Will check complete bloodwork. Will call with results.Co unseled on dietary modificati ons and healthy eating habits.Cou nseled on decreasing stress levels,Rec ommend yearly eye examsRecom mend regular dental exams/ashely rnings. Thyroid di sorder screening 267213318 Z13.29 Mixed anxi ety and depressive disorder 226196694 F41.8 Screening for malignant neoplasm of cervix 513731560 Z12.[address] James Cowart. History of ectopic pregnancie s. She is up to date on preventati ve screenings . Excessive daytime sleepiness with sleep paralysis 905917983 G47.53 Patient has a history of sleep paralysis. History of snoring. History of restless sleep patterns. Body mass index 40+ - severely obese 456511633 Z68.43 Patient is exercising . Patient is attempting to make dietary modificati ons. [id number] Unruly Bustillo in[address] [place] [address] 04/06/2023 08:02:02 04/06/2023 08:41:28 [id number] Tramaine Winkler MD [address] [place] [address] 04/26/2023 12:57:14 04/26/2023 13:15:14 Obstructive sleep apnea syndrome 71563073 G47.33 papnap...t itration to autopap 6-20 cm H2O. Obesity 627895823 E66.9 Patient aware that weight loss will improve not eliminate her need for auto PAP. [id number] Unruly Bustillo in[address] [address] 06/02/2023 14:51:05 06/02/2023 15:15:39 Mixed anxiety and depressive disorder 523370334 F41.8 Patient is tolerating medication . Will refill.Danny telly see back in 1 month.Will check vitamin levels, CBC, CMP, and iron panel at that time. [id number] Unruly Bustillo in[address] [address] 07/18/2023 15:54:45 07/18/2023 16:18:02 Viral upper respiratory tract infection 752644846 J06.9 Humidifier at night.Use medication as directed.O TC meds for cough.Foll ow up if no improvemen t. Iron defic iency anemia 05677760 D50.9 Patient finished her Iron supplement s.Will check levels today. Will call with results. Body mass index 30+ - obesity 138215164 Z68.42 Will start Wegovy.Danny l see back in 1 month for weight check.Will increase as tolerated. [id number] Unruly MoraLeidy in[address] [place] [address] 08/08/2023 09:58:51 08/08/2023 11:08:21 Tremor 40277031 R25.1 Will check lab work. Will call with results. Iron defic iency anemia 88577939 D50.9 Mixed anxi ety and depressive disorder 601108584 F41.8 Patient is reacting to the medication [...] do genetic testing at patient request today. [id number] [facility] [address] [place] [address] [address] [place] [address] 08/23/2023 15:37:17 08/23/2023 16:37:13 Mixed anxiety and depressive disorder 018716240 F41.8 Counseled in depth on symptoms of concern and when to go to ER. at chairside. Counseled on concerns and behavior changes and when to reach out for help. Support system is intact at home.Jose Luis knight on genetic testing results.Se e patient back in 1 month.Catrina ent is tolerating the Duloxetine 60mg. Vitamin D deficiency 347 63179 E55.9 [id number] Aden Petty MD [facility] Oncology and Hematolog y [address] [facility] [address] [place] [address] 08/23/2023 08:31:40 08/23/2023 09:08:39 Iron deficiency anemia 53596399 D50.9 Labs on August 08, 2023 with magnesium at 1.9. Vitamin-D level low at 22.4. B12 437. Folic acid 13. Normal liver function testing. Normal renal function. Normal electrolyt es. White blood cell count 7.7. Red blood cell count 4.90 hemoglobin 13.2 and hematocrit 40.4. MCV 82. Platelet count 254683. Normal cell differenti al. TSH 0.9. T4 [...] response to increasing PO supplement ation. Headache 02190383 R51.9 Concern for possible migraine. Will follow-up [...] ID Guarantor Name 10/01/2023 1 [place] [id number] A Leticia Wilkins [id number] 17 [id number] Leticia Vo Notes Date Note Type Note Provider Name and Address Organization Details Recorded Time 06/02/2023 text/html patient presents to clinic for medication update. She was placed inpatient at [facility] and was treated by Dr. Rankin. She states her prozac was causing hallucinations. She was started on seroquel and wellbutrin. She is tolerating well. She states she feels so much better. She does not have a follow up scheduled with Dr. Rankin. Unruly Rosen, [employer] [address], [place], [address], [facility] & [place] 06/02/2023 15:11:10 07/18/2023 text/html patient presents to clinic for follow up. She states she is tolerating her medication. No complaints. She reports some increased sinus drainage and her left ear is itchy. Denies any fever. Reports a dry cough. Denies any sore throat. Unruly Rosen APRN [address], [place], [address], [facility] [place] 07/18/2023 16:25:02 08/08/2023 text/html patient presents to clinic for an intermittent tremor. She has been titrating the Seroquel over the last week since we spoke. She denies any syncopal episodes. Denies any chest pain. Denies any thoughts of self harm or homicidal thoughts. Denies any hallucinations today. Unruly Rosen APRN [address], [place], [address], [facility] [place] 08/08/2023 14:26:50 08/23/2023 text/html patient presents to clinic for follow up. She is tolerating the Duloxetine. She denies suicidal or homicidal thoughts. She states that the tremor is completely gone. She states she sees hematology October 04. Unruly Rosen APRN [address], [place], [address], [facility] [place] 08/23/2023 16:18:32 08/23/2023 text/html 23 yo F [...] and hematocrit 40.4. MCV 82. Platelet count 689158. Normal cell differential. TSH 0.9. T4 0.96. [...] to increasing PO supplementation. Aden Petty MD [address], [place], [address], [place] - [facility] - [place] [facility] [place] 08/23/2023 09:44:31 OBGyn Episode No OBEpisode recorded.
--- OUTSIDE RECORDS SUMMARY | 2025-04-27 09:59 | XMS_ITS | Clinical Summary ---
Author Organization [facility] Address [address] [place] [address] Care Team Providers Care Oracle Technical Developer Name Role Phone Stephanie Allen Primary Care Provider [phone] Allergies Active Allergy Reactions Criticality Noted Date [...] Description 02/21/2025 Telephone Obstetrics & Gynecology [address] [place] [address] James Cowart MD 01/29/2025 Telephone Obstetrics & Gynecology [address] [place] [address] James Cowart MD from Last [...] 19+ 3-dose series) 2017 [facility]-Pap Smear 2019 [id number] Vaccine (1 - season) 2024 [facility]-Influenza Vaccine [...] Reactive Non Reactive 11/01/2024 1:54 PM EST [facility] Comment:Screening for HIV 1 & 2 antibodies, and P24 antigen is NONREACTIVE. No confirmatory testing is required. Blood Venous blood specimen / Unknown Venipuncture / Unknown 11/01/2024 10:24 AM EST 11/01/2024 12:52 PM EST Result Santino Cowart MD LAB BLOOD ORDERABLES Final Resu lt Performing Organization Address [facility] Co de Phone Number [facility] [address] [place] [address] * Hepatitis C Antibody w/Reflex to HCV Quant PCR (11/01/2024 10:24 AM EST) Hepatitis C Antibody Negative Negative 11/01/2024 1:31 PM EST [facility] Blood Venous blood specimen / Unknown Venipuncture / Unknown 11/01/2024 10:24 AM EST 11/01/2024 12:52 PM EST Result Santino Cowart MD LAB BLOOD ORDERABLES Final Resu lt Performing Organization Address City/[facility] Co de Phone Number [facility] [address] [place] [address] from Last 3 Months or Most Recently Relevant to Health Maintenance Additional Health Concerns Active Problems Noted Date Diagnosed Date CPM S24 PP LABOR (OBSTETRICS) 11/19/2024 Insurance ANTH Care Teams Oracle Technical Developer Relationship Specialty Start Date End Date Stephanie Allen PA [address] [place] [address] PCP - General 08/30/24
--- OUTSIDE RECORDS SUMMARY | 2025-04-27 09:59 | XMS_ITS | Encounter Summary ---
Author Organization Healthcare Address [address] [place] [address] Care Team Providers Care Pneumatic Jack Operator Name Role Phone Stephanie Allen Primary Care Provider [phone] Encounter Details Date Type Department Care Team (Late st Contact Info) Description 01/29/2025 Telephone Obstetrics & Gynecology [address] [place] [address] James Cowart MD [address] [place] [address] Social History Tobacco Use Types [...] is wanting to do a JAZLYN to [facility] with Dr. Mahogany Beavers. Pt is asking that her records please be faxed to that hospital. Fax for their office is [phone] Attn: Dr. Bart Beavers. Please cx the u/s apts that are left on schedule, I have cx the OB apts Best contact number: [phone] (mobile) Optimal time of day to reach [...] will receive notification of the communication/outcome via mobileo. documented in this encounter Plan of Treatment [...] documented as of this encounter Care Teams Pneumatic Jack Operator Relationship Specialty Start Date End Date Stephanie Allen PA [address] [place] [address] PCP - General 08/30/24 documented as of this encounter
[2025-04-27 10:06] VITALS: BMI 57.2
[2025-04-27] MEDS: LACTATED RINGERS 1000ML 1,000 ML 999 ML IV ×2 (10:36→18:20)
[2025-04-27 10:53] VITALS: RESP 20; TEMP 36.7; O2SAT 100; BMI 57.2
[2025-04-27 11:13] LABS: Microscopic, Urine URINE MICROSCOPIC (MICROSCOPIC)
[2025-04-27 11:15] LABS: Appearance,Urine CLEAR (Clear); Bilirubin,Urine Negative (Negative); Blood, Urine Negative (Negative); Color,Urine YELLOW (Yellow); Glucose,Urine (UA) Negative (Negative); Ketones,Urine Negative (Negative); Leukocyte Esterase,Urine Negative (Negative); Nitrate,Urine Negative (Negative); PH,Urine 6.5 (5.0-8.5); Protein,Urine Negative (Negative); Specific Gravity, Urine <= 1.005 (1.005-1.030); Urobilinogen,Urine 0.2 EU/dl (0.2)
[2025-04-27 11:21] LABS: Bacteria,Urine Trace /lpf; Squamous Epithelial Cell,Urine Occasional #/hpf (0-5); WBC,Urine Occasional #/hpf (0-3)
[2025-04-27] MEDS: ACETAMINOPHEN 500MG TAB 1000 MG PO ×2 (12:51→20:56)
[2025-04-27] MEDS: hydrOXYzine pamoate 25MG CAPSULE 50 MG PO (12:52)
[2025-04-27 13:01] LABS: Fetal Fibronectin (Rapid) Positive (Negative)
[2025-04-27] MEDS: TERBUTALINE SULFATE 1MG/ML VIAL 0.25 MG SUBCUT (14:01)
[2025-04-27] MEDS: BETAMETHASONE ACET/PHOS 6MG/ML 5ML MDV 12 MG IM (14:01)
[2025-04-27] MEDS: NIFEdipine 10MG CAPSULE 10 MG PO ×2 (18:35→22:40)
[2025-04-27 20:20] VITALS: BP 118/68; PULSE 95; RESP 19; TEMP 36.9
[2025-04-27] MEDS: ONDANSETRON 4MG/2ML VIAL 4 MG IV (21:40)
[2025-04-27] MEDS: BUTORPHANOL TARTRATE 1 MG/ML VIAL IV (21:44)
[2025-04-28 04:41] VITALS: BP 121/67; PULSE 95; RESP 16; TEMP 36.8
[2025-04-28] MEDS: ACETAMINOPHEN 500MG TAB 1000 MG PO (04:44)
[2025-04-28] MEDS: NIFEdipine 10MG CAPSULE 10 MG PO (07:13)
[2025-04-28 07:15] VITALS: BP 113/53; PULSE 83; RESP 16; TEMP 36.9; O2SAT 98
--- NOTE | 2025-04-28 07:17 | P.CONPHA_ITS ---
Pharmacy Intervention Comments: MEDICATION RECONCILIATION COMPLETED ON PATIENT USING EXTERNAL FILL HISTORY FROM PHARMACY AND LIST FROM CONDU[facility] OFFICE. -VALDO RODRÍGUEZD
--- NOTE | 2025-04-28 07:17 | HMH.PHAINT1 ---
Pharmacy Intervention Comments: MEDICATION RECONCILIATION COMPLETED ON PATIENT USING EXTERNAL FILL HISTORY FROM PHARMACY AND LIST FROM [facility] OFFICE. -VALDO RODRÍGUEZD
--- NOTE | 2025-04-28 10:05 | EXP.HPDC ---
General Admission date:: 04/27/25 Discharge date: 04/28/25 *Admission Date: 04/27/25 *Chief complaint: Contractions and DFM *History of present illness: Leticia Moulton is a 24yo who presented yesterday with decreased movemnt and contractions. She was noted to make some cervical dilation from 1 cm to 2 cm. She also has a positive FFN. She was admitted and given steroids. During her observation her contractions have spaced out and she is more comfortable. She was resting on exam this morning. She will be discharged home with routine discharge instructions and strict follow-up precautions. She will remain on pelvic rest. She has a follow-up appointment on Monday with a growth ultrasound and BPP prior to her appointment. She will be sent home on Procardia for toco lysis until 35-36 weeks gestation. Patient completed a full steroid course for lung maturity [facility] Disclaimer: The information contained in this section may have been updated after the patient was seen, as this information can be updated by other users. 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 and not yet delivered in second trimester Viral upper respiratory infection Anemia Depression Anxiety Surgical History History of tonsillectomy Family History (Updated 04/28/25 @ 07:34 by Idania Meade RN) Other No significant family history Social History Smoking Status: Former smoker tobacco type: e-cigarettes smoking status stop date: 08/28/2024 alcohol intake: never current occupational status: employed Travel in the last 8 weeks?: None household members: spouse Have you lived/traveled outside US in past 30 days?: No Contact w/someone who lives/traveled outside US past 30 days?: No Exposure to someone with infectious disease in past 14 days?: No Do you have a fever (greater than 100.4 F or 38 C)?: No Have you tested positive for COVID-19?: No Exposed to someone with COVID-19 in past 14 days?: No Do you have a sore throat?: No Do you have a cough?: No Do you have any weakness?: No Do you have any diarrhea?: No Are you experiencing any unusual bleeding?: No Do you have any muscle aches/pain?: No Do you have any abdominal pain?: No Are you experiencing loss of taste or smell?: No Other 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 Have you received the Flu Vaccine for this season: No Have you received the Pneumonia Vaccine: No Review of Systems Review of Systems Review of systems (narrative): Review of Systems Constitutional: Denies fever, chills, and sweats Respiratory: Denies cough and shortness of breath Cardiovascular: Denies chest pain and lightheadedness Gastrointestinal: Admits abdominal pain with contractions that has resolved since admission. Endorses good movement. Denies nausea, vomiting. Genitourinary: Denies dysuria and incontinence Musculoskeletal: Denies shoulder pain and back pain Neurological: Denies change in speech or headaches Exam Data for Last 24 hours Vital signs and Labs for Last 24 Hours: Temp Pulse Resp BP Pulse Ox O2 Del Method 98.5 F 83 16 113/53 L 98 Room Air 04/28/25 07:15 04/28/25 07:15 04/28/25 07:15 04/28/25 07:15 04/28/25 07:15 04/28/25 07:15 Laboratory Results - last 24 hr 04/27/25 10:00: Urine Color Yellow, Urine Appearance Clear, Urine pH 6.5, Ur Specific [place] <= 1.005, Urine Protein Negative, Urine Glucose (UA) Negative, Urine Ketones Negative, Urine Blood Negative, Urine Nitrate Negative, Urine Bilirubin Negative, Urine Urobilinogen 0.2, Ur Leukocyte Esterase Negative, Urine RBC None, Urine WBC Occasional, Ur Squamous Epith Cells Occasional, Urine Bacteria Trace 04/27/25 12:00: Fibronectin Positive A I & O for Last 24 hours: Intake & Output 04/25/25 04/26/25 04/27/25 04/28/25 23:59 23:59 23:59 23:59 Weight 313 lb Constitutional Constitutional: no acute distress *Routine HEENT Exam Head: Present normocephalic Eye: Present EOMI and PERRL ENT: Present mucous membranes moist *Routine Neck Exam Neck: Present supple; Absent lymphadenopathy *Routine Respiratory Exam Respiratory: Present CTA bilaterally *Routine Cardiovascular Exam Cardiovascular: Present RRR *Routine Abdominal Exam Abdominal: Present soft and normoactive bowel sounds; Absent tenderness *Routine Rectal Exam Rectal:: deferred *Routine Genitalia Exam Genitalia:: deferred *Routine Extremities Exam Extremities: Absent cyanosis, clubbing or edema *Routine Skin Exam Skin: Present warm; Absent rash *Routine Neurological Exam Neurological: Present alert and oriented X3 Meds Home Medications and Allergies Home Medications ?Medication ?Instructions ?Recorded ?Confirmed ?Type vitamin no.167-folic acid 1 tab PO DAILY 12/19/24 04/28/25 History 400 mcg-dha 25 mg chewable tablet (One-A-Day ) bupropion HCl 150 mg 24 hr tablet, 150 mg PO DAILY 01/14/25 04/28/25 History extended release diltiazem HCl 120 mg 120 mg PO DAILY 03/26/25 04/28/25 History capsule,extended release 24 hr progesterone micronized 200 mg 200 mg vaginal HS 04/11/25 04/28/25 History capsule (Prometrium) nifedipine 10 mg capsule 10 mg PO Q6 CONTRACTIONS AFTER LR 04/28/25 Rx #60 caps New Prescriptions to Start Prescriptions: nifedipine Mahogany Beavers Allergies Allergy/AdvReac Type Severity Reaction Status Date / Time propranolol Allergy Unknown Rash Verified 04/25/25 08:52 Hospital Course Hospital Course Hospital Course: Leticia Moulton is a 24yo who presented yesterday with decreased movemnt and contractions. She was noted to make some cervical dilation from 1 cm to 2 cm. She also has a positive FFN. She was admitted and given steroids. During her observation her contractions have spaced out and she is more comfortable. She was resting on exam this morning. She will be discharged home with routine discharge instructions and strict follow-up precautions. She will remain on pelvic rest. She has a follow-up appointment on Monday with a growth ultrasound and BPP prior to her appointment. She will be sent home on Procardia for toco lysis until 35-36 weeks gestation. Patient completed a full steroid course for lung maturity Results Data Completed and Pending Labs on day of discharge: Labs from last 24 hours 04/27/25 04/27/25 12:00 10:00 Urine Color Yellow Urine Appearance Clear Urine pH 6.5 Ur Specific [place] <= 1.005 Urine Protein Negative Urine Glucose (UA) Negative Urine Ketones Negative Urine Blood Negative Urine Nitrate Negative Urine Bilirubin Negative Urine Urobilinogen 0.2 Ur Leukocyte Esterase Negative Urine RBC None Urine WBC Occasional Ur Squamous Epith Cells Occasional Urine Bacteria Trace Fibronectin Positive A DS: Diagnosis Discharge Diagnosis (1) labor in third trimester: Status: Acute Code(s): O60.03 - labor without delivery, third trimester (2) Positive fibronectin at 22 weeks to 34 weeks gestation: Status: Acute Code(s): O09.899 - Supervision of other high risk pregnancies, unspecified trimester; R87.89 - Other abnormal findings in specimens from female genital organs Discharge Plan Disposition Patient Disposition: Home, Self-Care Discharge Order Discharge Orders: Discharge Order (Routine); Ordered 04/28/25 Ordered By: Mahogany Beavers Follow up Plan Follow up with: Mahogany Beavers DO [Staff Physician, ASSISTANT PROFESSOR OF GEOGRAPHY] - Enter time for follow up Prescriptions/Medication Reconciliation: New nifedipine 10 mg Capsule 10 mg PO Q6 Qty: 60 0RF Continued One-A-Day 400 mcg- 25 mg tablet,chewable 1 tab PO DAILY diltiazem HCl 120 mg capsule,extended release 24hr 120 mg PO DAILY Patient Comments: TAKE ONE CAPSULE BY MOUTH ONCE A DAY bupropion HCl 150 mg tablet extended release 24 hr 150 mg PO DAILY progesterone micronized [Prometrium] 200 mg capsule 200 mg vaginal HS Problem Reconciliation Problems Reviewed?: Yes Patient Discharge Instructions ACTIVITY: Continue current activity DIET: regular diet Print Language: Filipino Providers Primary Care Provider: Denver Browning Admaidan Provider: Dahlia Nix Attending Provider: Dahlia Nix
[2025-04-28] MEDS: BETAMETHASONE ACET/PHOS 6MG/ML 5ML MDV 12 MG IM (12:57)
== END 2025-04-28 13:08 | disposition home or self-care (01) ==
LOC: OBOUT 13:14 → OB 13:16
PROVIDERS: Admitting Provider Obstetrics & Gynecology; PCP Nurse Practitioner Family; Visit Provider Obstetrics & Gynecology
DX: O60.03 Preterm labor without delivery, third trimester (principal); O09.893 Supervision of other high risk pregnancies, third trimester; R87.89 Other abnormal findings in specimens from female genital organs; O99.343 Other mental disorders complicating pregnancy, third trimester; F32.A Depression, unspecified; F41.9 Anxiety disorder, unspecified; Z79.899 Other long term (current) drug therapy; Z3A.00 Weeks of gestation of pregnancy not specified; Z88.8 Allergy status to other drugs, medicaments and biological substances; Z87.891 Personal history of nicotine dependence
CPT/HCPCS: 96361; 96372; 96374; 96375; 59025; 81001; 82731; G0378; J0595; J0702; J2405; J3105; J7120

== ENCOUNTER 2025-04-30 08:01 | Outpatient (CLI) | payer BC, SELFPAY ==
--- NOTE | 2025-04-30 08:00 | US_ITS ---
PROCEDURE: US OB BIOPHYSICAL PROFILE CLINICAL INDICATION: Needs in one week for oligohydramnios COMPARISON: US US OB FOLLOW UP from 01/28/2025 US US OB TRANSVAGINAL from 02/20/2025 US OB FOLLOW UP from 02/20/2025 US OB FOLLOW UP from 02/24/2025 US OB BIOPHYSICAL PROFILE from 04/10/2025 US OB FOLLOW UP from 04/11/2025 US OB BIOPHYSICAL PROFILE from 04/25/2025 FINDINGS: Transabdominal sonographic images of the uterus were obtained. From her established due date she is 35 weeks 1 day. The following parameters are obtained: Viable Fetus in the cephalic presentation with a posterolateral placenta grade 2. Average ultrasound age is 35weeks 3days Estimated weight 2,662g, 5 lb 14 oz Cervix measures 2.78 cm Measurements: heart Rate = 153bpm BPD = 35weeks 3days, 58 percentile HC = 35weeks 2days, 18 percentile AC = 35weeks 6days, 76 percentile FL = 34weeks 5days, 29 percentile HC/AC is 0.98 FL/BPD is 0.77 FL/AC is 0.21 54 percentile Amniotic fluid index: 12.7cm, MVP 3.8 cm Qualitative AFV:2 Breathing movements: 2 Gross Body Movements: 2 Tone: 2 Biophysical profile score: 8 No obvious anomalies evident.Kidneys, four-chamber heart, three-vessel cord appear normal. IMPRESSION: 1. Viable fetus in the cephalic presentation with a posterolateral placenta grade 2. 2. The fluid is within normal limits with an amniotic fluid index 12.7 cm, MVP 3.8 cm. 3. Biophysical profile is 8/8 with good breathing movement and movement seen. 4. There has been good interval growth with the fetus currently 54th percentile. 5. Limited anatomical scan appears normal. Dictated by: Ashutosh Waldron MD 04/30/2025 14:59 Ashutosh Waldron MD in OV 04/30/2025 14:59
--- OUTSIDE RECORDS SUMMARY | 2025-04-30 08:04 | XMS_ITS | Encounter Summary ---
Author Organization Healthcare Address [address] [place] [address] Care Team Providers Care Attendance Clerk Name Role Phone None, None Primary Care Provider [phone] Stephanie Allen Primary Care Provider [phone] Encounter Details Date Type Department Care Team (Late st Contact Info) Description 10/12/2022 Outside Procedure External Location [address] [place] [address] James Cowart MD [address] [place] [address] Social History Tobacco Use Types [...] AM EST Narrative 10/12/2022 8:21 [place] [address] Name: LETICIA PENNINGTON Exam Date: 10/12/2022 : 2000 Age 22 Gender: F Physician: JAMES COWART Facility: [facility] Facility HSV: Outpatient Exam: HYSTEROSALPINGOGRAM FLUOROSCOPY [...] for referring LETICIA PENNINGTON to [facility]. Legally authenticated by POPE ANA Baptiste 2022-10-12 08:09:41 Procedure Note Provider, Generic [place] - 10/12/2022 [place] [address] Name: LETICIA PENNINGTON Exam Date: 10/12/2022 : 2000 Age 22 Gender: F Physician: JAMES COWART Facility: [facility] Facility HSV: Outpatient Exam: HYSTEROSALPINGOGRAM FLUOROSCOPY [...] Thank you for referring LETICIA PENNINGTON to [facility]. Legally authenticated by POPE ANA Baptiste 2022-10-12 08:09:41 James Cowart MD IMG FLUOROSCOPY PROCEDURES Gayle l Result documented in this encounter Visit Diagnoses Not on filedocumented in this encounter Care Teams Attendance Clerk Relationship Specialty Start Date End Date None, None [address] [place] [address] PCP - General NONE FOUND 09/05/22 05/23/24 Stephanie Allen PA [address] [place] [address] PCP - General 08/30/24 documented as of this encounter
--- OUTSIDE RECORDS SUMMARY | 2025-04-30 08:04 | XMS_ITS | Encounter Summary ---
Author Organization Healthcare Address [address] [place] [address] Care Team Providers Care Dietary Assistant Name Role Phone Stephanie Allen Primary Care Provider [phone] Encounter Details Date Type Department Care Team (Late st Contact Info) Description 01/29/2025 Telephone Obstetrics & Gynecology [address] [place] [address] James Cowart MD [address] [place] [address] Social History Tobacco Use Types [...] is wanting to do a JAZLYN to [facility] with Dr. Mahogany Beavers. Pt is asking that her records please be faxed to that hospital. Fax for their office is [phone] Attn: Dr. Bart Beavers. Please cx the u/s apts that are left on schedule, I have cx the OB apts Best contact number: [phone] (mobile) Optimal time of day to reach [...] will receive notification of the communication/outcome via Percolate. documented in this encounter Plan of Treatment [...] documented as of this encounter Care Teams Dietary Assistant Relationship Specialty Start Date End Date Stephanie Allen PA [address] [place] [address] PCP - General 08/30/24 documented as of this encounter
--- OUTSIDE RECORDS SUMMARY | 2025-04-30 08:04 | XMS_ITS | Referral Summary ---
Author Organization [employer] ([place], [place], [place], [place]) Address [address] [place] [address] Care Team Providers Care Account Receivable Clerk Name Role Phone Stephanie Allen PA-C Primary Care Provider [phone] Allergies Active Allergy Reactions Criticality Noted Date [...] Date Deyvi rded Speak language other than Turkmen at home Not on file 09/01/2024 Want help with school or training Not on file 09/01/2024 Substance Use Answer Date Recorded Used prescription meds for non-medical reasons N ot on file 09/01/2024 Used illegal drugs past 12 months Not on file 09/01/2024 Comments No Sex and Gender Information Value Date Recorded Sex Assigned at Not on file 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
--- OUTSIDE RECORDS SUMMARY | 2025-04-30 08:04 | XMS_ITS | Clinical Summary ---
Author Organization [facility] Address [address] [place] [address] Care Team Providers Care Account Executive Software Sales Name Role Phone Stephanie Allen Primary Care Provider [phone] Allergies Active Allergy Reactions Criticality Noted Date [...] Description 02/21/2025 Telephone Obstetrics & Gynecology [address] [place] [address] James Cowart MD 01/29/2025 Telephone Obstetrics & Gynecology [address] [place] [address] James Cowart MD from Last [...] 19+ 3-dose series) 2017 [facility]-Pap Smear 2019 NOS-RRAZZ-71 Vaccine (1 - season) 2024 [facility]-Influenza Vaccine [...] Reactive Non Reactive 11/01/2024 1:54 PM EST [facility] Comment:Screening for HIV 1 & 2 antibodies, and P24 antigen is NONREACTIVE. No confirmatory testing is required. Blood Venous blood specimen / Unknown Venipuncture / Unknown 11/01/2024 10:24 AM EST 11/01/2024 12:52 PM EST Result Santino Cowart MD LAB BLOOD ORDERABLES Final Resu lt Performing Organization Address [facility] Co de Phone Number [facility] [address] [place] [address] * Hepatitis C Antibody w/Reflex to HCV Quant PCR (11/01/2024 10:24 AM EST) Hepatitis C Antibody Negative Negative 11/01/2024 1:31 PM EST [facility] Blood Venous blood specimen / Unknown Venipuncture / Unknown 11/01/2024 10:24 AM EST 11/01/2024 12:52 PM EST Result Santino Cowart MD LAB BLOOD ORDERABLES Final Resu lt Performing Organization Address City/[facility] Co de Phone Number [facility] [address] [place] [address] from Last 3 Months or Most Recently Relevant to Health Maintenance Additional Health Concerns Active Problems Noted Date Diagnosed Date CPM S24 PP LABOR (OBSTETRICS) 11/19/2024 Insurance ANTH Care Teams Account Executive Software Sales Relationship Specialty Start Date End Date Stephanie Allen PA [address] [place] [address] PCP - General 08/30/24
--- OUTSIDE RECORDS SUMMARY | 2025-04-30 08:04 | XMS_ITS | Clinical Summary ---
Author Organization [employer] ([place], [place], [place]) Address [address] [place] [address] Care Team Providers Care Slip Maker Name Role Phone Stephanie Allen PA-C Primary Care Provider [phone] Allergies Active Allergy Reactions Criticality Noted Date [...] Date Deyvi rded Speak language other than Lao at home Not on file 09/01/2024 Want help with school or training Not on file 09/01/2024 Substance Use Answer Date Recorded Used prescription meds for non-medical reasons N ot on file 09/01/2024 Used illegal drugs past 12 months Not on file 09/01/2024 Comments No Sex and Gender Information Value Date Recorded Sex Assigned at Not on file 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
== END 2025-04-30 23:59 | disposition home or self-care (01) ==
LOC: RAD 08:01
PROVIDERS: PCP Nurse Practitioner Family; Visit Provider Obstetrics & Gynecology
DX: O41.03X0 Oligohydramnios, third trimester, not applicable or unspecified (principal); O34.33 Maternal care for cervical incompetence, third trimester; O99.213 Obesity complicating pregnancy, third trimester; Z3A.35 35 weeks gestation of pregnancy; E66.01 Morbid (severe) obesity due to excess calories
CPT/HCPCS: 76816; 76819; 86403

== ENCOUNTER 2025-04-30 21:34 | Outpatient (CLI) | payer BC, SELFPAY ==
--- OUTSIDE RECORDS SUMMARY | 2025-04-30 21:37 | XMS_ITS | Encounter Summary ---
Author Organization Healthcare Address [address] [place] [address] Care Team Providers Care Watch Repair Technician Name Role Phone Stephanie Allen Primary Care Provider [phone] Encounter Details Date Type Department Care Team (Late st Contact Info) Description 01/29/2025 Telephone Obstetrics & Gynecology [address] [place] [address] James Cowart MD [address] [place] [address] Social History Tobacco Use Types [...] is wanting to do a JAZLYN to [facility] with Dr. Mahogany Beavers. Pt is asking that her records please be faxed to that hospital. Fax for their office is [phone] Attn: Dr. Bart Beavers. Please cx the u/s apts that are left on schedule, I have cx the OB apts Best contact number: [phone] (mobile) Optimal time of day to reach [...] will receive notification of the communication/outcome via PacketSled. documented in this encounter Plan of Treatment [...] documented as of this encounter Care Teams Watch Repair Technician Relationship Specialty Start Date End Date Stephanie Allen PA [address] [place] [address] PCP - General 08/30/24 documented as of this encounter
--- OUTSIDE RECORDS SUMMARY | 2025-04-30 21:37 | XMS_ITS | Clinical Summary ---
Author Organization [facility] Address [address] [place] [address] Care Team Providers Care Avionics Safety Inspector Name Role Phone Stephanie Allen Primary Care Provider [phone] Allergies Active Allergy Reactions Criticality Noted Date [...] Description 02/21/2025 Telephone Obstetrics & Gynecology [address] [place] [address] James Cowart MD 01/29/2025 Telephone Obstetrics & Gynecology [address] [place] [address] James Cowart MD from Last [...] 19+ 3-dose series) 2017 [facility]-Pap Smear 2019 [id number]-91 Vaccine (1 - season) 2024 [facility]-Influenza Vaccine [...] Reactive Non Reactive 11/01/2024 1:54 PM EST [facility] Comment:Screening for HIV 1 & 2 antibodies, and P24 antigen is NONREACTIVE. No confirmatory testing is required. Blood Venous blood specimen / Unknown Venipuncture / Unknown 11/01/2024 10:24 AM EST 11/01/2024 12:52 PM EST Result Santino Cowart MD LAB BLOOD ORDERABLES Final Resu lt Performing Organization Address [facility] Co de Phone Number [facility] [address] [place] [address] * Hepatitis C Antibody w/Reflex to HCV Quant PCR (11/01/2024 10:24 AM EST) Hepatitis C Antibody Negative Negative 11/01/2024 1:31 PM EST [facility] Blood Venous blood specimen / Unknown Venipuncture / Unknown 11/01/2024 10:24 AM EST 11/01/2024 12:52 PM EST Result Santino Cowart MD LAB BLOOD ORDERABLES Final Resu lt Performing Organization Address City/[facility] Co de Phone Number [facility] [address] [place] [address] from Last 3 Months or Most Recently Relevant to Health Maintenance Additional Health Concerns Active Problems Noted Date Diagnosed Date CPM S24 PP LABOR (OBSTETRICS) 11/19/2024 Insurance ANTH Care Teams Avionics Safety Inspector Relationship Specialty Start Date End Date Stephanie Allen PA [address] [place] [address] PCP - General 08/30/24
--- OUTSIDE RECORDS SUMMARY | 2025-04-30 21:37 | XMS_ITS | Referral Summary ---
Author Organization [employer] ([place], [place]) Address [address] [place] [address] Care Team Providers Care Instructor Bridge Name Role Phone Stephanie Allen PA-C Primary Care Provider [phone] Allergies Active Allergy Reactions Criticality Noted Date [...] Date Deyvi rded Speak language other than Irish at home Not on file 09/01/2024 Want help with school or training Not on file 09/01/2024 Substance Use Answer Date Recorded Used prescription meds for non-medical reasons N ot on file 09/01/2024 Used illegal drugs past 12 months Not on file 09/01/2024 Comments No Sex and Gender Information Value Date Recorded Sex Assigned at Not on file Legal 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
--- OUTSIDE RECORDS SUMMARY | 2025-04-30 21:37 | XMS_ITS | Clinical Summary ---
Author Organization [employer] ([place]) Address [address] [place] [address] Care Team Providers Care Television Equipment Operator Name Role Phone Stephanie Allen PA-C Primary Care Provider [phone] Allergies Active Allergy Reactions Criticality Noted Date [...] Date Deyvi rded Speak language other than Slovak at home Not on file 09/01/2024 Want help with school or training Not on file 09/01/2024 Substance Use Answer Date Recorded Used prescription meds for non-medical reasons N ot on file 09/01/2024 Used illegal drugs past 12 months Not on file 09/01/2024 Comments No Sex and Gender Information Value Date Recorded Sex Assigned at Not on file 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
--- OUTSIDE RECORDS SUMMARY | 2025-04-30 21:37 | XMS_ITS | Encounter Summary ---
Author Organization Healthcare Address [address] [place] [address] Care Team Providers Care On Site Services Specialist Name Role Phone None, None Primary Care Provider [phone] Stephanie Allen Primary Care Provider Encounter Details Date Type Department Care Team (Late st Contact Info) Description 10/12/2022 Outside Procedure External Location [address] [place] [address] James Cowart MD [address] [place] [address] Social History Tobacco Use Types [...] AM EST Narrative 10/12/2022 8:21 [place] [address] Name: LETICIA PENNINGTON Exam Date: 10/12/2022 : 2000 Age 22 Gender: F Physician: JAMES COWART Facility: [facility] Facility HSV: Outpatient Exam: HYSTEROSALPINGOGRAM [...] Thank you for referring LETICIA PENNINGTON to [facility]. Legally authenticated by POPE ANA Baptiste 2022-10-12 08:09:41 Procedure Note Provider, Generic [place] - 10/12/2022 [place] [address] Name: LETICIA PENNINGTON Exam Date: 10/12/2022 : 2000 Age 22 Gender: F Physician: JAMES COWART Facility: [facility] Facility HSV: Outpatient Exam: HYSTEROSALPINGOGRAM [...] Thank you for referring LETICIA PENNINGTON to [facility]. Legally authenticated by POPE ANA Baptiste 2022-10-12 08:09:41 James Cowart MD IMG FLUOROSCOPY PROCEDURES Gayle l Result documented in this encounter Visit Diagnoses Not on filedocumented in this encounter Care Teams On Site Services Specialist Relationship Specialty Start Date End Date None, None [address] [place] [address] PCP - General NONE FOUND 09/05/22 05/23/24 Stephanie Allen PA [address] [place] [address] PCP - General 08/30/24 documented as of this encounter
[2025-04-30 21:40] VITALS: BMI 57.0
[2025-04-30 21:48] VITALS: BP 97/47; PULSE 90; RESP 20; TEMP 37.2; O2SAT 96; BMI 57.0
[2025-04-30 22:02] LABS: Microscopic, Urine URINE MICROSCOPIC (MICROSCOPIC)
[2025-04-30 22:11] LABS: Bilirubin,Urine Negative (Negative); Color,Urine YELLOW (Yellow); Glucose,Urine (UA) Negative (Negative); Ketones,Urine Negative (Negative); Leukocyte Esterase,Urine Negative (Negative); PH,Urine 7.5 (5.0-8.5); Protein,Urine Negative (Negative); Specific Gravity, Urine 1.020 (1.005-1.030); Urobilinogen,Urine 0.2 EU/dl (0.2)
[2025-04-30 22:36] LABS: Bacteria,Urine 4+ /lpf; RBC,Urine 20-50 #/hpf (0-3); Squamous Epithelial Cell,Urine 50-100 #/hpf (0-5); WBC,Urine 50-100 #/hpf (0-3)
== END 2025-04-30 23:27 | disposition home or self-care (01) ==
LOC: OBOUT 21:35 → OB 21:36
PROVIDERS: PCP Nurse Practitioner Family; Visit Provider Nurse Practitioner Obstetrics & Gynecology
DX: O09.893 Supervision of other high risk pregnancies, third trimester (principal); O34.33 Maternal care for cervical incompetence, third trimester; R87.89 Other abnormal findings in specimens from female genital organs; Z3A.35 35 weeks gestation of pregnancy
CPT/HCPCS: 59025; 81001; 87086; 99212; G0463

== ENCOUNTER 2025-05-04 10:02 | Outpatient (CLI) | payer BC, SELFPAY ==
--- OUTSIDE RECORDS SUMMARY | 2025-05-04 10:05 | XMS_ITS | Encounter Summary ---
Author Organization Healthcare Address [address] [place] [address] Care Team Providers Care Junior Programmer Analyst Name Role Phone None, None Primary Care Provider [phone] Stephanie Allen Primary Care Provider [phone] Encounter Details Date Type Department Care Team (Late st Contact Info) Description 10/12/2022 Outside Procedure External Location [address] [place] [address] James Cowart MD [address] [place] [address] Social History Tobacco Use Types [...] AM EST Narrative 10/12/2022 8:21 [place] [address] Name: LETICIA PENNINGTON Exam Date: 10/12/2022 : 2000 Age 22 Gender: F Physician: JAMES COWART Facility: [facility] Facility HSV: Outpatient Exam: HYSTEROSALPINGOGRAM FLUOROSCOPY [...] LOPEZ 10/12/2022 Thank you for referring LETICIA PENNNIGTON to [facility]. Legally authenticated by POPE ANA Baptiste 2022-10-12 08:09:41 Procedure Note Provider, Generic [place] - 10/12/2022 [place] [address] Name: LETICIA PENNINGTON Exam Date: 10/12/2022 : 2000 Age 22 Gender: F Physician: JAMES COWART Facility: [facility] Facility HSV: Outpatient Exam: HYSTEROSALPINGOGRAM FLUOROSCOPY [...] Thank you for referring LETICIA PENNINGTON to [facility]. Legally authenticated by POPE ANA Baptiste 2022-10-12 08:09:41 James Cowart MD IMG FLUOROSCOPY PROCEDURES Gayle l Result documented in this encounter Visit Diagnoses Not on filedocumented in this encounter Care Teams Junior Programmer Analyst Relationship Specialty Start Date End Date None, None [address] [place] [address] PCP - General NONE FOUND 09/05/22 05/23/24 Stephanie Allen PA [address] [place] [address] PCP - General 08/30/24 documented as of this encounter
--- OUTSIDE RECORDS SUMMARY | 2025-05-04 10:05 | XMS_ITS | Referral Summary ---
Author Organization [employer] ([place], [place]) Address [address] [place] [address] Care Team Providers Care Fiber Artist Name Role Phone Stephanie Allen PA-C Primary Care Provider [phone] Allergies Active Allergy Reactions Criticality Noted Date [...] Date Deyvi rded Speak language other than Bengali at home Not on file 09/01/2024 Want help with school or training Not on file 09/01/2024 Substance Use Answer Date Recorded Used prescription meds for non-medical reasons N ot on file 09/01/2024 Used illegal drugs past 12 months Not on file 09/01/2024 Comments No Sex and Gender Information Value Date Recorded Sex Assigned at Not on file 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
--- OUTSIDE RECORDS SUMMARY | 2025-05-04 10:05 | XMS_ITS | Clinical Summary ---
Author Organization [employer] ([place], [place]) Address [address] [place] [address] Care Team Providers Care Flavor Tank Tender Name Role Phone Stephanie Allen PA-C Primary Care Provider [phone] Allergies Active Allergy Reactions Criticality Noted Date [...] Date Deyvi rded Speak language other than Nepali at home Not on file 09/01/2024 Want help with school or training Not on file 09/01/2024 Substance Use Answer Date Recorded Used prescription meds for non-medical reasons N ot on file 09/01/2024 Used illegal drugs past 12 months Not on file 09/01/2024 Comments No Sex and Gender Information Value Date Recorded Sex Assigned at Not on file 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
--- OUTSIDE RECORDS SUMMARY | 2025-05-04 10:06 | XMS_ITS | Clinical Summary ---
Author Organization Healthcare Address [address] [place] [address] Care Team Providers Care Photograph Inspector Name Role Phone Stephanie Allen Primary Care Provider [phone] Allergies Active Allergy Reactions Criticality Noted Date [...] Team Description 02/21/2025 Telephone Obstetrics & Gynecology [facility] [place] [address] James Cowart MD from Last 3 Months Family History 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 Relation Name Comments Alcohol abuse Father Earsel Vo Cancer Father Earsel Vo Diabetes Father Earsel Vo Kidney cancer Father Earsel Vo Obesity Father Earsel Vo Cancer Maternal Grandfather Germarnie Fischer Hearing loss Maternal Grandfather Gerria Fischer Heart disease Maternal Grandfather Gerria Fischer COPD Maternal Grandmother Esme Fischer Heart [...] 19+ 3-dose series) 2017 UKY-Pap Smear 2019 [id number] Vaccine ( - season) 2024 [facility]-Influenza Vaccine (#1) 06/30/202509/15, 08/31/2010, 08/22/2007 [facility]-Depression Screening 01/22/2026 01/22/2025, 0304/2025 [...] Reactive Non Reactive 11/01/2024 1:54 PM EST [facility] Comment:Screening for HIV 1 & 2 antibodies, and P24 antigen is NONREACTIVE. No confirmatory testing is required. Blood Venous blood specimen / Unknown Venipuncture / Unknown 11/01/2024 10:24 AM EST 11/01/2024 12:52 PM EST Result Santino Cowart MD LAB BLOOD ORDERABLES Final Resu lt Performing Organization Address City/[facility]/ZIP Co de Phone Number [facility] [address] [place] [address] * Hepatitis C Antibody w/Reflex to HCV Quant PCR (11/01/2024 10:24 AM EST) Hepatitis C Antibody Negative Negative 11/01/2024 1:31 PM EST [facility] Blood Venous blood specimen / Unknown Venipuncture / Unknown 11/01/2024 10:24 AM EST 11/01/2024 12:52 PM EST Result Santino Cowart MD LAB BLOOD ORDERABLES Final Resu lt Performing Organization Address City/[facility]/ZIP Co de Phone Number [facility] [address] [place] [address] from Last 3 Months or Most Recently Relevant to Health Maintenance Additional Health Concerns Active Problems Noted Date Diagnosed Date CPM S24 PP LABOR (OBSTETRICS) 11/19/2024 Insurance [place] Care Teams Photograph Inspector Relationship Specialty Start Date End Date Stephanie Allen PA [address] [place] [address] PCP - General 08/30/24
--- OUTSIDE RECORDS SUMMARY | 2025-05-04 10:06 | XMS_ITS | Data Portability ---
Author Organization [facility] [place] AD[place] Address [address] [place] [id number] Care Team Providers Care Quoter Name Role Phone UNRULY ROSEN Primary Care Provider TRAMAINE WINKLER Primary Care Provider Assessment No assessment recorded. Plan of Treatment Reminders Order Date Submit Date Provider Last Modified By Organization Details Last Modified Time Details Appointments None recorded. Lab CBC w/ auto diff 2022 [email or web address] [facility], [address] [place], [address], 3 08:47:10 ferritin, serum or plasma 20[email or web address] [facility], [address] [place], [address], 3 08:47:10 iron + total iron-bindin g capacity (TIBC), serum [email or web address] [facility], [address] [place], [address], 3 08:47:10 CMP, serum or plasma 20[email or web address] [facility], [address] [place], [address], 3 08:47:10 CBC w/ auto diff 2022 023 MIES[facility], [address], [address], [place], [address], 3 07:14:24 vitamin D, 25-hydroxy, total, serum 2022 023 MIESHA [facility], [address], [address], [place], [address], 3 07:14:27 vitamin B12 + folate, serum or blood 2022 023 MIESHA [facility], [address], [address], [place], [address], 3 07:14:26 magnesium, serum or plasma 2022 023 M[facility]HA [facility], [address], [address], [place], [address], 3 07:14:28 TSH + free T4, serum 2022 023 MIESHA [facility], [address], [address], [place], [address], 3 07:14:23 CMP, serum or plasma 2022 023 MIESHA [facility], [address], [address], [place], [address], 3 07:14:25 iron + TIBC + ferritin, serum 2022 023 M[facility]HA [facility], [address], [address], [place], [address], 3 07:14:21 iron + TIBC + ferritin, serum 2022 023 MIESHA [facility], [address], [address], [place], [address], 3 08:21:13 CBC w/ auto diff 2022 023 [place] [facility], [address], [facility] [address], [place], [address], 3 08:21:13 CMP, serum or plasma 2022 023 [place] [facility], [address], [facility] [address], [place], [address], 3 08:21:15 Referral behavioral health referral 2022 023 [email or web address] 3 [facility], [facility], [address], [place], [address], 3 08:01:02 Procedures None recorded. Surgeries None recorded. Imaging None recorded. Medication Orders Vitamin D3 125 mcg (5,000 unit) tablet 2022 023 [facility], [address] [place] [address], [id number], 3 16:18:04 duloxetine 60 mg capsule,del ayed release 2022 023 2 [facility], [address] [place] [address], [id number], 3 14:25:59 Wegovy 0.25 mg/0.5 mL subcutaneou s pen injector 2022 023 [email or web address] 9 [facility] [place], [address], 3 08:44:47 Flonase Allergy Relief 50 mcg/actuati on nasal spray,suspe nsion 2022 023 [email or web address] 2 [facility], [address] [place], [address], 3 16:23:10 Zyrtec 10 mg tablet 2022 023 [email or web address] [id number] 9 [facility], [address] [place], [address], 3 08:44:34 Wellbutrin SR 150 mg tablet, 12 hr sustained-r elease [address] [facility], [address] [place], [address], 3 08:44:29 Seroquel 100 mg tablet 2022 023 [email or web address] [id number] 9 [facility], [address] [place], [address], 3 08:44:54 Patient TargetsNo targets recorded. Patient InstructionsNo instructions recorded. Reason for Referral Behavioral Health Referral f or Mixed anxiety and depressive disorder Referring Physician: Unruly Rosen, Infectious Disease, Encounter Date: 08/08/2023 Results Created Date Observation Date Name Description Value Unit Range Abnormal Flag Note LastModifiedBy Organization Detail LastModifiedTime 07/18/2007/19/2023 FE+TI BC+FE R iron bind.cap.(TI BC) 427 ug/dL 250-45 0 Not Available [facility] ([facility]) [address] [place], [address], 07/19/2023 08:21:12 07/18/20 23 07/19/2023 FE+TI BC+FE R UIBC 396 ug/dL 131-42 5 Not Available [facility] ([facility]) [address] [place], [address], 07/19/2023 08:21:12 07/18/20 23 07/19/2023 FE+TI BC+FE R iron 31 ug/dL 27-159 Not Available [facility] ([facility]) [address] [place], [address], 07/19/2023 08:21:12 07/18/20 23 07/19/2023 FE+TI BC+FE R iron saturation 7 % 15-55 alert low Not Available [facility] ([facility]) [address] [place], [address], 07/19/2023 08:21:12 07/18/20 23 07/19/2023 FE+TI BC+FE R ferritin 61 NG/mL 15-150 Not Available [facility] ([facility]) [address] [place], [address], 07/19/2023 08:21:12 07/18/20 23 07/19/2023 CBC WITH DIFFE RENTI AL/PL ATELE T WBC 9.7 x10e3 /uL 3.4-10 .8 Not Available [facility] ([facility]) [address] [place], [address], 07/19/2023 08:21:13 07/18/20 23 07/19/2023 CBC WITH DIFFE RENTI AL/PL ATELE T RBC 4.95 x10e6 /uL 3.77-5 .28 Not Available [facility] ([facility]) [address] [place], [address], 07/19/2023 08:21:13 07/18/2007/19/2023 CBC WITH DIFFE RENTI AL/PL ATELE T hemoglobin 13.1 g/dL 11.1-1 5.9 Not Available [facility] ([facility]) [address] [place], [address], 07/19/2023 08:21:13 07/18/20 23 07/19/2023 CBC WITH DIFFE RENTI AL/PL ATELE T hematocrit 40.6 % 34.0-4 6.6 Not Available [facility] ([facility]) [address] [place], [address], 07/19/2023 08:21:13 07/18/20 23 07/19/2023 CBC WITH DIFFE RENTI AL/PL ATELE T MCV 82 fL 79-97 Not Available [facility] ([facility]) [address] [facility], [place], [address], 07/19/2023 08:21:13 07/18/20 23 07/19/2023 CBC WITH DIFFE RENTI AL/PL ATELE T MCH 26.5 pg 26.6-3 3.0 below low normal Not Available [facility] ([facility]) [address] [facility], [place], [address], 07/19/2023 08:21:13 07/18/20 23 07/19/2023 CBC WITH DIFFE RENTI AL/PL ATELE T MCHC 32.3 g/dL 31.5-3 5.7 Not Available [facility] ([facility]) [address] [facility], [place], [address], 07/19/2023 08:21:13 07/18/20 23 07/19/2023 CBC WITH DIFFE RENTI AL/PL ATELE T RDW 13.1 % 11.7-1 5.4 Not Available [facility] ([facility]) [address] [facility], [place], [address], 07/19/2023 08:21:13 07/18/20 23 07/19/2023 CBC WITH DIFFE RENTI AL/PL ATELE T platelets 287 x10e3 /uL 150-45 0 Not Available [facility] ([facility]) [address] [place], [address], 07/19/2023 08:21:13 07/18/20 23 07/19/2023 CBC WITH DIFFE RENTI AL/PL ATELE T neutrophils 65 % not estab. Not Available [facility] ([facility]) [address] [place], [address], 07/19/2023 08:21:13 07/18/20 23 07/19/2023 CBC WITH DIFFE RENTI AL/PL ATELE T lymphs 24 % not estab. Not Available [facility] ([facility]) [address] [facility], [place], [address], 07/19/2023 08:21:13 07/18/20 23 07/19/2023 CBC WITH DIFFE RENTI AL/PL ATELE T monocytes 7 % not estab. Not Available [facility] ([facility]) [address] [facility], [place], [address], 07/19/2023 08:21:13 07/18/20 23 07/19/2023 CBC WITH DIFFE RENTI AL/PL ATELE T eos 3 % not estab. Not Available [facility] ([facility]) [address] [facility], [place], [address], 07/19/2023 08:21:13 07/18/20 23 07/19/2023 CBC WITH DIFFE RENTI AL/PL ATELE T basos 0 % not estab. Not Available [facility] ([facility]) [address] [place], [address], 07/19/2023 08:21:13 07/18/20 23 07/19/2023 CBC WITH DIFFE RENTI AL/PL ATELE T immature cells NOTCHER Not Available [facility] ([facility]) [address] [place], [address], 07/19/2023 08:21:13 07/18/20 23 07/19/2023 CBC WITH DIFFE RENTI AL/PL ATELE T neutrophils (absolute) 6.4 x10e3 /uL 1.4-7. 0 Not Available [facility] ([facility]) [address] [place], [address], 07/19/2023 08:21:13 07/18/20 23 07/19/2023 CBC WITH DIFFE RENTI AL/PL ATELE T lymphs (absolute) 2.3 x10e3 /uL 0.7-3. 1 Not Available [facility] ([facility]) [address] [facility], [place], [address], 07/19/2023 08:21:13 07/18/20 23 07/19/2023 CBC WITH DIFFE RENTI AL/PL ATELE T monocytes(ab solute) 0.6 x10e3 /uL 0.1-0. 9 Not Available [facility] ([facility]) [address] [facility], [place], [address], 07/19/2023 08:21:13 07/18/20 23 07/19/2023 CBC WITH DIFFE RENTI AL/PL ATELE T eos (absolute) 0.3 x10e3 /uL 0.0-0. 4 Not Available [facility] ([facility]) [address] [facility], [place], [address], 07/19/2023 08:21:13 07/18/20 23 07/19/2023 CBC WITH DIFFE RENTI AL/PL ATELE T baso (absolute) 0.0 x10e3 /uL 0.0-0. 2 Not Available [facility] ([facility]) [address] [facility], [place], [address], 07/19/2023 08:21:13 07/18/20 23 07/19/2023 CBC WITH DIFFE RENTI AL/PL ATELE T immature granulocytes 1 % not estab. Not Available [facility] ([facility]) [address] [facility], [place], [address], 07/19/2023 08:21:13 07/18/20 23 07/19/2023 CBC WITH DIFFE RENTI AL/PL ATELE T immature grans (abs) 0.1 x10e3 /uL 0.0-0. 1 Not Available [facility] ([facility]) [address] [facility], [place], [address], 07/19/2023 08:21:13 07/18/20 23 07/19/2023 CBC WITH DIFFE RENTI AL/PL ATELE T NRBC NOTCHER Not Available [facility] ([facility]) [address] [facility], [place], [address], 07/19/2023 08:21:13 07/18/20 23 07/19/2023 CBC WITH DIFFE RENTI AL/PL ATELE T hematology comments: NOTCHER Not Available [facility] ([facility]) [address] [facility], [place], [address], 07/19/2023 08:21:13 07/18/20 23 07/19/2023 COMP. METAB OLIC PANEL (14) glucose 93 mg/dL 70-99 Not Available [facility] ([facility]) [address] [facility], [place], [address], 07/19/2023 08:21:15 07/18/20 23 07/19/2023 COMP. METAB OLIC PANEL (14) BUN 14 mg/dL 6-20 Not Available [facility] ([facility]) [address] [place], [address], 07/19/2023 08:21:15 07/18/20 23 07/19/2023 COMP. METAB OLIC PANEL (14) creatinine 0.77 mg/dL 0.57-1 .00 Not Available [facility] ([facility]) [address] [facility], [place], [address], 07/19/2023 08:21:15 07/18/20 23 07/19/2023 COMP. METAB OLIC PANEL (14) eGFR 110 mL/mi n/1.7 3 >59 Not Available [facility] ([facility]) [address] [place], [address], 07/19/2023 08:21:15 07/18/20 23 07/19/2023 COMP. METAB OLIC PANEL (14) BUN/creatini ne ratio 18 9-23 Not Available [facility] ([facility]) [address] [place], [address], 07/19/2023 08:21:15 07/18/20 23 07/19/2023 COMP. METAB OLIC PANEL (14) sodium 141 mmol/ L 134-14 4 Not Available [facility] ([facility]) [address] [place], [address], 07/19/2023 08:21:15 07/18/20 23 07/19/2023 COMP. METAB OLIC PANEL (14) potassium 4.1 mmol/ L 3.5-5. 2 Not Available [facility] ([facility]) [address] [place], [address], 07/19/2023 08:21:15 07/18/20 23 07/19/2023 COMP. METAB OLIC PANEL (14) chloride 104 mmol/ L 96-106 Not Available [facility] ([facility]) [address] [place], [address], 07/19/2023 08:21:15 07/18/20 23 07/19/2023 COMP. METAB OLIC PANEL (14) carbon dioxide, total 21 mmol/ L 20-29 Not Available [facility] ([facility]) [address] [place], [address], 07/19/2023 08:21:15 07/18/20 23 07/19/2023 COMP. METAB OLIC PANEL (14) calcium 9.4 mg/dL 8.7-10 .2 Not Available [facility] ([facility]) [address] [place], [address], 07/19/2023 08:21:15 07/18/20 23 07/19/2023 COMP. METAB OLIC PANEL (14) protein, total 7.2 g/dL 6.0-8. 5 Not Available [facility] ([facility]) [address] [place], [address], 07/19/2023 08:21:15 07/18/20 23 07/19/2023 COMP. METAB OLIC PANEL (14) albumin 4.3 g/dL 4.0-5. 0 Not Available [facility] ([facility]) [address] [facility], [place], [address], 07/19/2023 08:21:15 07/18/20 23 07/19/2023 COMP. METAB OLIC PANEL (14) globulin, total 2.9 g/dL 1.5-4. 5 Not Available [facility] ([facility]) [address] [facility], [place], [address], 07/19/2023 08:21:15 07/18/20 23 07/19/2023 COMP. METAB OLIC PANEL (14) A/G ratio 1.5 1.2-2. 2 Not Available [facility] ([facility]) [address] [facility], [place], [address], 07/19/2023 08:21:15 07/18/20 23 07/19/2023 COMP. METAB OLIC PANEL (14) bilirubin, total 0.2 mg/dL 0.0-1. 2 Not Available [facility] ([facility]) [address] [facility], [place], [address], 07/19/2023 08:21:15 07/18/20 23 07/19/2023 COMP. METAB OLIC PANEL (14) alkaline phosphatase 80 IU/L 44-121 Not Available [facility] ([facility]) [address] [facility], [place], [address], 07/19/2023 08:21:15 07/18/20 23 07/19/2023 COMP. METAB OLIC PANEL (14) AST (SGOT) 14 IU/L 0-40 Not Available [facility] ([facility]) [address] [place], [address], 07/19/2023 08:21:15 07/18/20 23 07/19/2023 COMP. METAB OLIC PANEL (14) ALT (SGPT) 10 IU/L 0-32 Not Available [facility] ([facility]) [address] [place], [address], 07/19/2023 08:21:15 08/08/2008/09/2023 FE+TI BC+FE R iron bind.cap.(TI BC) 369 ug/dL 250-45 0 Not Available [facility] ([facility]) [address] [place], [address], 08/09/2023 07:14:21 08/08/2008/09/2023 FE+TI BC+FE R UIBC 334 ug/dL 131-42 5 Not Available [facility] ([facility]) [address] [place], [address], 08/09/2023 07:14:21 08/08/2008/09/2023 FE+TI BC+FE R iron 35 ug/dL 27-159 Not Available [facility] ([facility]) [address] [place], [address], 08/09/2023 07:14:21 08/08/2008/09/2023 FE+TI BC+FE R iron saturation 9 % 15-55 alert low Not Available [facility] ([facility]) [address] [place], [address], 08/09/2023 07:14:21 08/08/2008/09/2023 FE+TI BC+FE R ferritin 53 NG/mL 15-150 Not Available [facility] ([facility]) [address] [place], [address], 08/09/2023 07:14:21 08/08/2008/09/2023 TSH+F REE T4 TSH 0.925 uIU/m L 0.450- 4.500 Not Available [facility] ([facility]) [address] [facility] [place], [address], 08/09/2023 07:14:22 08/08/2008/09/2023 TSH+F REE T4 T4,free(dire ct) 0.96 NG/dL 0.82-1 .77 Not Available [facility] ([facility]) [address] [facility], [place], [address], 08/09/2023 07:14:22 08/08/2008/09/2023 CBC WITH DIFFE RENTI AL/PL ATELE T WBC 7.7 x10e3 /uL 3.4-10 .8 Not Available [facility] ([facility]) [address] [place], [address], 08/09/2023 07:14:24 08/08/2008/09/2023 CBC WITH DIFFE RENTI AL/PL ATELE T RBC 4.90 x10e6 /uL 3.77-5 .28 Not Available [facility] ([facility]) [address] [facility], [place], [address], 08/09/2023 07:14:24 08/08/2008/09/2023 CBC WITH DIFFE RENTI AL/PL ATELE T hemoglobin 13.2 g/dL 11.1-1 5.9 Not Available [facility] ([facility]) [address] [place], [address], 08/09/2023 07:14:24 08/08/2008/09/2023 CBC WITH DIFFE RENTI AL/PL ATELE T hematocrit 40.4 % 34.0-4 6.6 Not Available [facility] ([facility]) [address] [place], [address], 08/09/2023 07:14:24 08/08/2008/09/2023 CBC WITH DIFFE RENTI AL/PL ATELE T MCV 82 fL 79-97 Not Available [facility] ([facility]) [address] [facility], [place], [address], 08/09/2023 07:14:24 08/08/2008/09/2023 CBC WITH DIFFE RENTI AL/PL ATELE T MCH 26.9 pg 26.6-3 3.0 Not Available [facility] ([facility]) [address] [facility], [place], [address], 08/09/2023 07:14:24 08/08/2008/09/2023 CBC WITH DIFFE RENTI AL/PL ATELE T MCHC 32.7 g/dL 31.5-3 5.7 Not Available [facility] ([facility]) [address] [facility], [place], [address], 08/09/2023 07:14:24 08/08/2008/09/2023 CBC WITH DIFFE RENTI AL/PL ATELE T RDW 13.3 % 11.7-1 5.4 Not Available [facility] ([facility]) [address] [facility], [place], [address], 08/09/2023 07:14:24 08/08/2008/09/2023 CBC WITH DIFFE RENTI AL/PL ATELE T platelets 298 x10e3 /uL 150-45 0 Not Available [facility] ([facility]) [address] [facility], [place], [address], 08/09/2023 07:14:24 08/08/2008/09/2023 CBC WITH DIFFE RENTI AL/PL ATELE T neutrophils 68 % not estab. Not Available [facility] ([facility]) [address] [facility], [place], [address], 08/09/2023 07:14:24 08/08/2008/09/2023 CBC WITH DIFFE RENTI AL/PL ATELE T lymphs 23 % not estab. Not Available [facility] ([facility]) [address] [facility], [place], [address], 08/09/2023 07:14:24 08/08/2008/09/2023 CBC WITH DIFFE RENTI AL/PL ATELE T monocytes 6 % not estab. Not Available [facility] ([facility]) [address] [facility], [place], [address], 08/09/2023 07:14:24 08/08/2008/09/2023 CBC WITH DIFFE RENTI AL/PL ATELE T eos 3 % not estab. Not Available [facility] ([facility]) [address] [facility], [place], [address], 08/09/2023 07:14:24 08/08/2008/09/2023 CBC WITH DIFFE RENTI AL/PL ATELE T basos 0 % not estab. Not Available [facility] ([facility]) [address] [facility], [place], [address], 08/09/2023 07:14:24 08/08/2008/09/2023 CBC WITH DIFFE RENTI AL/PL ATELE T immature cells NOTCHER Not Available [facility] ([facility]) [address] [facility], [place], [address], 08/09/2023 07:14:24 08/08/2008/09/2023 CBC WITH DIFFE RENTI AL/PL ATELE T neutrophils (absolute) 5.2 x10e3 /uL 1.4-7. 0 Not Available [facility] ([facility]) [address] [facility], [place], [address], 08/09/2023 07:14:24 08/08/2008/09/2023 CBC WITH DIFFE RENTI AL/PL ATELE T lymphs (absolute) 1.8 x10e3 /uL 0.7-3. 1 Not Available [facility] ([facility]) [address] [place], [address], 08/09/2023 07:14:24 08/08/20 23 08/09/2023 CBC WITH DIFFE RENTI AL/PL ATELE T monocytes(ab solute) 0.5 x10e3 /uL 0.1-0. 9 Not Available [facility] ([facility]) [address] [facility], [place], [address], 08/09/2023 07:14:24 08/08/2008/09/2023 CBC WITH DIFFE RENTI AL/PL ATELE T eos (absolute) 0.2 x10e3 /uL 0.0-0. 4 Not Available [facility] ([facility]) [address] [facility], [place], [address], 08/09/2023 07:14:24 08/08/2008/09/2023 CBC WITH DIFFE RENTI AL/PL ATELE T baso (absolute) 0.0 x10e3 /uL 0.0-0. 2 Not Available [facility] ([facility]) [address] [facility], [place], [address], 08/09/2023 07:14:24 08/08/2008/09/2023 CBC WITH DIFFE RENTI AL/PL ATELE T immature granulocytes 0 % not estab. Not Available [facility] ([facility]) [address] [facility], [place], [address], 08/09/2023 07:14:24 08/08/2008/09/2023 CBC WITH DIFFE RENTI AL/PL ATELE T immature grans (abs) 0.0 x10e3 /uL 0.0-0. 1 Not Available [facility] ([facility]) [address] [facility], [place], [address], 08/09/2023 07:14:24 08/08/2008/09/2023 CBC WITH DIFFE RENTI AL/PL ATELE T NRBC NOTCHER Not Available [facility] ([facility]) [address] [place], [address], 08/09/2023 07:14:24 08/08/20 23 08/09/2023 CBC WITH DIFFE RENTI AL/PL LATONYALE T hematology comments: NOTCHER Not Available [facility] ([facility]) [address] [facility], [place], [address], 08/09/2023 07:14:24 08/08/20 23 08/09/2023 COMP. METAB OLIC PANEL (14) glucose 99 mg/dL 70-99 Not Available [facility] ([facility]) [address] [facility], [place], [address], 08/09/2023 07:14:25 08/08/2008/09/2023 COMP. METAB OLIC PANEL (14) BUN 17 mg/dL 6-20 Not Available [facility] ([facility]) [address] [facility], [place], [address], 08/09/2023 07:14:25 08/08/20 23 08/09/2023 COMP. METAB OLIC PANEL (14) creatinine 0.83 mg/dL 0.57-1 .00 Not Available [facility] ([facility]) [address] [facility], [place], [address], 08/09/2023 07:14:25 08/08/20 23 08/09/2023 COMP. METAB OLIC PANEL (14) eGFR 100 mL/mi n/1.7 3 >59 Not Available [facility] ([facility]) [address] [facility], [place], [address], 08/09/2023 07:14:25 08/08/20 23 08/09/2023 COMP. METAB OLIC PANEL (14) BUN/creatini ne ratio 20 - Not Available [facility] ([facility]) [address] [place], [address], 08/09/2023 07:14:25 08/08/20 23 08/09/2023 COMP. METAB OLIC PANEL (14) sodium 144 mmol/ L 134-14 4 Not Available [facility] ([facility]) [address] [place], [address], 08/09/2023 07:14:25 08/08/20 23 08/09/2023 COMP. METAB OLIC PANEL (14) potassium 4.4 mmol/ L 3.5-5. 2 Not Available [facility] ([facility]) [address] [place], [address], 08/09/2023 07:14:25 08/08/20 23 08/09/2023 COMP. METAB OLIC PANEL (14) chloride 105 mmol/ L 96-106 Not Available [facility] ([facility]) [address] [place], [address], 08/09/2023 07:14:25 08/08/20 23 08/09/2023 COMP. METAB OLIC PANEL (14) carbon dioxide, total 22 mmol/ L 20-29 Not Available [facility] ([facility]) [address] [place], [address], 08/09/2023 07:14:25 08/08/2008/09/2023 COMP. METAB OLIC PANEL (14) calcium 9.2 mg/dL 8.7-10 .2 Not Available [facility] ([facility]) [address] [place], [address], 08/09/2023 07:14:25 08/08/2008/09/2023 COMP. METAB OLIC PANEL (14) protein, total 6.9 g/dL 6.0-8. 5 Not Available [facility] ([facility]) [address] [place], [address], 08/09/2023 07:14:25 08/08/20 23 08/09/2023 COMP. METAB OLIC PANEL (14) albumin 4.3 g/dL 4.0-5. 0 Not Available [facility] ([facility]) [address] [place], [address], 08/09/2023 07:14:25 08/08/20 23 08/09/2023 COMP. METAB OLIC PANEL (14) globulin, total 2.6 g/dL 1.5-4. 5 Not Available [facility] ([facility]) [address] [facility], [place], [address], 08/09/2023 07:14:25 08/08/20 23 08/09/2023 COMP. METAB OLIC PANEL (14) A/G ratio 1.7 1.2-2. 2 Not Available [facility] ([facility]) [address] [facility], [place], [address], 08/09/2023 07:14:25 08/08/20 23 08/09/2023 COMP. METAB OLIC PANEL (14) bilirubin, total <0.2 mg/dL 0.0-1. 2 Not Available [facility] ([facility]) [address], [place], [address], 08/09/2023 07:14:25 08/08/20 23 08/09/2023 COMP. METAB OLIC PANEL (14) alkaline phosphatase 80 IU/L 44-121 Not Available [facility] ([facility]) [address], [place], [address], 08/09/2023 07:14:25 08/08/20 23 08/09/2023 COMP. METAB OLIC PANEL (14) AST (SGOT) 13 IU/L 0-40 Not Available [facility] ([facility]) [address], [place], [address], 08/09/2023 07:14:25 08/08/20 23 08/09/2023 COMP. METAB OLIC PANEL (14) ALT (SGPT) 14 IU/L 0-32 Not Available [facility] ([facility]) [address], [place], [address], 08/09/2023 07:14:25 08/08/20 23 08/09/2023 VITAM IN B12 AND FOLAT E vitamin B12 437 pg/mL 232-12 45 Not Available [facility] ([facility]) [address], [place], [address], 08/09/2023 07:14:26 08/08/20 23 08/09/2023 VITAM IN B12 AND FOLAT E folate (folic acid), serum 13.0 NG/mL >3.0 A serum folat e sandra ntrat ion of less than 3.1 ng/mL is consi dered to repre sent clini gisell defic iency . Not Available [facility] ([facility]) [address], [place], [address], 08/09/2023 07:14:26 08/08/20 23 08/09/2023 VITAM IN [...] and D. Alicia avalos [place]: [facility] Press . 2. Aiden rivera MF, Farrah dixon [place], Hillary off-F errjaelyn i NUÑEZ, et al. Evalu ation , treat ment, and preve ntion of vitam in D defic iency : an Endoc rine Socie ty clini gisell pract ice guide line. JCEM. 2010; 96(7) :1911 -30. Not Available [facility] ([facility]) [address], [place], [address], 08/09/2023 07:14:27 08/08/20 23 08/09/2023 MAGNE SIUM magnesium 1.9 mg/dL 1.6-2. 3 Not Available [facility] ([facility]) [address], [place], [address], 08/09/2023 07:14:28 05/26/20 23 05/26/2023 PAP nap (PROC ) No observ ation record ed. [email or web address] Not Available 2022 09:46:47 Result Notes None recorded. Procedures Surgical History Date Name Laterality Status Provider Name and Address Organization Details Recorded Time 03/18/2020 Date of Last Pap Smear completed MARGARETBart MELTON [facility] [place] 04/05/2023 13:05:37 10/30/2011 Tonsillecto my/Adenoide ctomy completed [facility] JONES MELTON [facility] [place] 04/05/2023 13:05:37 Imaging Results None recorded. Procedure [...] propionate 50 mcg/actuati on nasal spray,suspe nsion [place] 1 spray every day by intranasa l [...] blood by Pulse oximetry Heart rate Systolic And Diastolic Provider Name and Address Organization Details Last Updated DateTime 3 157.48 cm 50.1 kg/m2 427474. 31 g 97.7 [degF] 98 % 98 % 105 /min 92/66 mm[Hg] MARGARET MELTON [facility] [place] 3 14:59:03 Date Recorded Body height Body mass index (BMI) Body weight Body temperature Oxygen saturation Oxygen saturation in Arterial blood by Pulse oximetry Heart rate Systolic And Diastolic Provider Name and Address Organization Details Last Updated DateTime 3 157.48 cm 47.6 kg/m2 973249. 42 g 98.2 [degF] 99 % 99 % 103 /min 124/86 mm[Hg] MARGARET MELTON [facility] [place] 3 15:58:53 Date Recorded Body height Body weight Body mass index (BMI) Body temperature Oxygen saturation Oxygen saturation in Arterial blood by Pulse oximetry Heart rate Systolic And Diastolic Provider Name and Address Organization Details Last Updated DateTime 3 157.48 cm 168747. 72 g 49.9 kg/m2 97.7 [degF] 100 % 100 % 128 /min 100/76 mm[Hg] MARGARET MELTON [facility] [place] 3 10:09:53 Date Recorded Body height Body mass index (BMI) Body weight Body temperature Oxygen saturation Oxygen saturation in Arterial blood by Pulse oximetry Heart rate Systolic And Diastolic Provider Name and Address Organization Details Last Updated DateTime 3 157.48 cm 51.9 kg/m2 819379. 87 g 98 [degF] 98 % 98 % 91 /min 127/74 mm[Hg] Agnes MELTON [facility] [place] 3 08:43:53 Date Recorded Body height Body mass index (BMI) Body weight Body temperature Oxygen saturation Oxygen saturation in Arterial blood by Pulse oximetry Heart rate Systolic And Diastolic Provider Name and Address Organization Details Last Updated DateTime 157.48 cm 51 kg/m2 229638. 27 g 97.5 [degF] 99 % 99 % 129 /min 124/90 mm[Hg] Dheeraj MULTANI [facility] [place] 15:59:39 Social History Question Answer Notes LastModified by [employer] Details LastModified Time Tobacco Smoking Status Former Smoker MARGARET hassan, NERISSA [facility]il [facility] [place] 04/05/2023 13:05:37 Do You Have An Advance [...] Functional Status Question Answer Note LastModified by [employer] Details LastModified Time Do you use any illicit or recreational drugs? Yes Information not available 04/05/2023 Do you or have you ever used any other forms of tobacco or nicotine? Yes [email or web address] Information not available 06/02/2023 What is your level of alcohol consumption? Occasional Information not available 04/05/2023 Do you or have you ever used smokeless tobacco? 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 Current user of electronic cigarettes Information not available 06/02/2023 What is your exercise level? Moderate Information not available 04/05/2023 Mental Status Question Answer Note LastModified by Organization D etails LastModified Time Do you feel stressed (tense, restless, nervous, or anxious, or unable to sleep at night)? [id number] Information not available 04/05/2023 Family History Relationship [...] SNOMED-CT Code Diagnosis ICD10 Code Diagnosis Note [id number] Unruly Bustillo in, BACKUP ADMINISTRATOR [facility] [address] [facility] [address] [place] [address] 04/05/2023 13:02:12 04/05/2023 13:39:51 Adult health examination 131608977 Z00.00 Will check complete bloodwork. Will call with results.Co unseled on dietary modificati ons and healthy eating habits.Cou nseled on decreasing stress levels,Rec ommend yearly eye examsRecom mend regular dental exams/ashely rnings. Thyroid di sorder screening 152041371 Z13.29 Mixed anxi ety and depressive disorder 615591074 F41.8 Screening for malignant neoplasm of cervix 139099896 Z12.[address] James Cowart. History of ectopic pregnancie s. She is up to date on preventati ve screenings . Excessive daytime sleepiness with sleep paralysis 926226910 G47.53 Patient has a history of sleep paralysis. History of snoring. History of restless sleep patterns. Body mass index 40+ - severely obese 749800369 Z68.43 Patient is exercising . Patient is attempting to make dietary modificati ons. [id number] Unruly Bustillo in[address] [place] [address] 04/06/2023 08:02:02 04/06/2023 08:41:28 [id number] Tramaine Winkler MD [address] [place] [address] 04/26/2023 12:57:14 04/26/2023 13:15:14 Obstructive sleep apnea syndrome 73720056 G47.33 papnap...t itration to autopap 6-20 cm H2O. Obesity 721505726 E66.9 Patient aware that weight loss will improve not eliminate her need for auto PAP. [id number] Unruly Bustillo in[address] [place] [address] 06/02/2023 14:51:05 06/02/2023 15:15:39 Mixed anxiety and depressive disorder 565539945 F41.8 Patient is tolerating medication . Will refill.Danny l see back in 1 month.Will check vitamin levels, CBC, CMP, and iron panel at that time. [id number] Unruly Bustillo in[address] [place] [address] 07/18/2023 15:54:45 07/18/2023 16:18:02 Viral upper respiratory tract infection 902708561 J06.9 Humidifier at night.Use medication as directed.O TC meds for cough.Foll ow up if no improvemen t. Iron defic iency anemia 57542491 D50.9 Patient finished her Iron supplement s.Will check levels today. Will call with results. Body mass index 30+ - obesity 264869164 Z68.42 Will start Wegovy.Danny l see back in 1 month for weight check.Will increase as tolerated. [id number] [facility] [address] [place] [address] [address] [place] [address] 08/08/2023 09:58:51 08/08/2023 11:08:21 Tremor 20246228 R25.1 Will check lab work. Will call with results. Iron defic iency anemia 76805813 D50.9 Mixed anxi ety and depressive disorder 713434487 F41.8 Patient is reacting to the medication [...] do genetic testing at patient request today. [id number] [facility] [address] [facility] [address] [place] [address] 08/23/2023 15:37:17 08/23/2023 16:37:13 Mixed anxiety and depressive disorder 478997403 F41.8 Counseled in depth on symptoms of concern and when to go to ER. at chairside. Counseled on concerns and behavior changes and when to reach out for help. Support system is intact at home.Jose Luis knight on genetic testing results.Se e patient back in 1 month.Catrina ent is tolerating the Duloxetine 60mg. Vitamin D deficiency 347 13221 E55.9 [id number] Aden Petty MD [facility] [address] [facility] [address] [place] [address] 08/23/2023 08:31:40 08/23/2023 09:08:39 Iron deficiency anemia 72498519 D50.9 Labs on August 08, 2023 with magnesium at 1.9. Vitamin-D level low at 22.4. B12 437. Folic acid 13. Normal liver function testing. Normal renal function. Normal electrolyt es. White blood cell count 7.7. Red blood cell count 4.90 hemoglobin 13.2 and hematocrit 40.4. MCV 82. Platelet count 740486. Normal cell differenti al. TSH 0.9. T4 [...] response to increasing PO supplement ation. Headache 31996371 R51.9 Concern for possible migraine. Will follow-up [...] ID Guarantor Name 10/01/2023 1 [employer] [id number] A Leticia Wilkins [id number] Leticia Vo Notes Date Note Type Note Provider Name and Address Organization Details Recorded Time 06/02/2023 text/html patient presents to clinic for medication update. She was placed inpatient at [facility] and was treated by Dr. Rankin. She states her prozac was causing hallucinations. She was started on seroquel and wellbutrin. She is tolerating well. She states she feels so much better. She does not have a follow up scheduled with Dr. Rankin. Unruly Rosen, BACKUP ADMINISTRATOR [address], [place], [address], [facility] 06/02/2023 15:11:10 07/18/2023 text/html patient presents to clinic for follow up. She states she is tolerating her medication. No complaints. She reports some increased sinus drainage and her left ear is itchy. Denies any fever. Reports a dry cough. Denies any sore throat. Unruly Rosen APRN [address], [place], [address], [facility] & [place] 07/18/2023 16:25:02 08/08/2023 text/html patient presents to clinic for an intermittent tremor. She has been titrating the Seroquel over the last week since we spoke. She denies any syncopal episodes. Denies any chest pain. Denies any thoughts of self harm or homicidal thoughts. Denies any hallucinations today. Unruly Rosen APRN [address], [place], [address], [facility] [place] 08/08/2023 14:26:50 08/23/2023 text/html patient presents to clinic for follow up. She is tolerating the Duloxetine. She denies suicidal or homicidal thoughts. She states that the tremor is completely gone. She states she sees hematology October 04. Unruly Rosen APRN [address], [place], [address], [facility] [place] 08/23/2023 16:18:32 08/23/2023 text/html 23 yo F [...] and hematocrit 40.4. MCV 82. Platelet count 723018. Normal cell differential. TSH 0.9. T4 0.96. [...] to increasing PO supplementation. Aden Petty MD [address], [place], [address], [place] - [facility] - [place] & [place] 08/23/2023 09:44:31 OBGyn Episode No OBEpisode recorded.
[2025-05-04 10:22] LABS: Microscopic, Urine URINE MICROSCOPIC (MICROSCOPIC)
[2025-05-04 10:32] VITALS: BMI 57.0
[2025-05-04 10:55] LABS: Bilirubin,Urine Negative (Negative); Color,Urine YELLOW (Yellow); Glucose,Urine (UA) Negative (Negative); Ketones,Urine Negative (Negative); Leukocyte Esterase,Urine 1+ (Negative); PH,Urine 6.5 (5.0-8.5); Protein,Urine Negative (Negative); Specific Gravity, Urine 1.015 (1.005-1.030); Urobilinogen,Urine 0.2 EU/dl (0.2)
[2025-05-04] MEDS: LACTATED RINGERS 1000ML 1,000 ML 999 ML IV (11:40)
[2025-05-04] MEDS: TERBUTALINE SULFATE 1MG/ML VIAL 0.25 MG SUBCUT (11:40)
[2025-05-04 12:32] LABS: Bacteria,Urine Trace /lpf; RBC,Urine Occasional #/hpf (0-3); WBC,Urine 20-50 #/hpf (0-3)
== END 2025-05-04 13:21 | disposition home or self-care (01) ==
LOC: OBOUT 10:04 → OB 10:04
PROVIDERS: PCP Nurse Practitioner Family; Visit Provider Obstetrics & Gynecology
DX: O34.33 Maternal care for cervical incompetence, third trimester (principal); O09.893 Supervision of other high risk pregnancies, third trimester; R87.89 Other abnormal findings in specimens from female genital organs; Z3A.35 35 weeks gestation of pregnancy
CPT/HCPCS: 59025; 81001; 87086; 96360; 96372; 99212; G0463; J3105; J7120

== ENCOUNTER 2025-05-05 13:54 | Outpatient (CLI) | payer BC, SELFPAY ==
[2025-05-05 14:00] VITALS: BMI 57.0
--- OUTSIDE RECORDS SUMMARY | 2025-05-05 14:00 | XMS_ITS | Clinical Summary ---
Author Organization [employer] ([place], [place], [place], [place]) Address [address] [place] [address] Care Team Providers Care Printing Machine Operator Name Role Phone Stephanie Allen PA-C Primary Care Provider [phone] Allergies Active Allergy Reactions Criticality Noted Date [...] Date Deyvi rded Speak language other than Croatian at home Not on file 09/01/2024 Want help with school or training Not on file 09/01/2024 Substance Use Answer Date Recorded Used prescription meds for non-medical reasons N ot on file 09/01/2024 Used illegal drugs past 12 months Not on file 09/01/2024 Comments No Sex and Gender Information Value Date Recorded Sex Assigned at Not on file Legal Sex 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
--- OUTSIDE RECORDS SUMMARY | 2025-05-05 14:00 | XMS_ITS | Encounter Summary ---
Author Organization Healthcare Address [address] [place] [address] Care Team Providers Care Department Coordinator Name Role Phone None, None Primary Care Provider [phone] Stephanie Allen Primary Care Provider [phone] Encounter Details Date Type Department Care Team (Late st Contact Info) Description 10/12/2022 Outside Procedure External Location [address] [place] [address] James Cowart MD [address] [place] [address] Social History Tobacco Use Types [...] AM EST Narrative 10/12/2022 8:21 [place] [address] Name: LETICIA PENNINGTON Exam Date: 10/12/2022 : 2000 Age 22 Gender: F Physician: JAMES COWART Facility: [facility] Facility HSV: Outpatient Exam: HYSTEROSALPINGOGRAM FLUOROSCOPY TIME [...] Thank you for referring LETICIA PENNINGTON to [facility]. Legally authenticated by POPE ANA Baptiste 2022-10-12 08:09:41 Procedure Note Provider, [facility] [place] - 10/12/2022 [place] [address] Name: LETICIA PENNINGTON Exam Date: 10/12/2022 : 2000 Age 22 Gender: F Physician: JAMES COWART Facility: [facility] Facility HSV: Outpatient Exam: HYSTEROSALPINGOGRAM FLUOROSCOPY TIME CLINICAL HISTORY: HSG, history of ectopic FINDINGS: 5 fluoroscopic spot films were obtained for HSG. There is free spillage of contrast into the peritoneal cavity bilaterally. IMPRESSION: Free spillage noted bilaterally. FLUOROSCOPY TIME: 0.5 minutes The films were reviewed, interpreted, and dictated by Dr. Ana Lopez Transcribed by Colt Sands PA-C Dictated By: ANA LOEPZ Transcribed By: Ana Lopez Transcribed On: 10/12/2022 8:09 AM Electronically signed by: ANA LOPEZ 10/12/2022 Thank you for referring LETICIA PENNINGTON to [facility]. Legally authenticated by POPE ANA Baptiste 2022-10-12 08:09:41 James Cowart MD IMG FLUOROSCOPY PROCEDURES Gayle l Result documented in this encounter Visit Diagnoses Not on filedocumented in this encounter Care Teams Department Coordinator Relationship Specialty Start Date End Date None, None [address] [place] [address] PCP - General NONE FOUND 09/05/22 05/23/24 Stephanie Allen PA [address] [place] [address] PCP - General 08/30/24 documented as of this encounter
--- OUTSIDE RECORDS SUMMARY | 2025-05-05 14:00 | XMS_ITS | Clinical Summary ---
Author Organization Healthcare Address [address] [place] [address] Care Team Providers Care Records Tech Name Role Phone Stephanie Allen Primary Care Provider [phone] Allergies Active Allergy Reactions Criticality Noted Date [...] Team Description 02/21/2025 Telephone Obstetrics & Gynecology [facility] [place] [address] James Cowart MD from Last [...] 19+ 3-dose series) 2017 [facility]-Pap Smear 2019 EMD-YLNHD-24 Vaccine ( - season) 2024 [facility]-Influenza Vaccine [...] Reactive Non Reactive 11/01/2024 1:54 PM EST [facility] Comment:Screening for HIV 1 & 2 antibodies, and P24 antigen is NONREACTIVE. No confirmatory testing is required. Blood Venous blood specimen / Unknown Venipuncture / Unknown 11/01/2024 10:24 AM EST 11/01/2024 12:52 PM EST Result Santino Cowart MD LAB BLOOD ORDERABLES Final Resu lt Performing Organization Address City/[facility]/ZIP Co de Phone Number [facility] [address] [place] [address] * Hepatitis C Antibody w/Reflex to HCV Quant PCR (11/01/2024 10:24 AM EST) Hepatitis C Antibody Negative Negative 11/01/2024 1:31 PM EST [facility] Blood Venous blood specimen / Unknown Venipuncture / Unknown 11/01/2024 10:24 AM EST 11/01/2024 12:52 PM EST Result Santino Cowart MD LAB BLOOD ORDERABLES Final Resu lt Performing Organization Address City/[facility]/ZIP Co de Phone Number [facility] [address] [place] [address] from Last 3 Months or Most Recently Relevant to Health Maintenance Additional Health Concerns Active Problems Noted Date Diagnosed Date CPM S24 PP LABOR (OBSTETRICS) 11/19/2024 Insurance [place] Care Teams Records Tech Relationship Specialty Start Date End Date Stephanie Allen PA [address] [place] [address] PCP - General 08/30/24
--- OUTSIDE RECORDS SUMMARY | 2025-05-05 14:00 | XMS_ITS | Data Portability ---
Author Organization [facility] [place] AD[place] Address [address] [place] [id number] Care Team Providers Care Personal Carer Name Role Phone UNRULY ROSEN Primary Care Provider [phone] TRAMAINE WINKLER Primary Care Provider [phone] Assessment No assessment recorded. Plan of Treatment Reminders Order Date Submit Date Provider Last Modified By Organization Details Last Modified Time Details Appointments None recorded. Lab CBC w/ auto diff 2022 023 [email or web address] 6 [facility], [address] [place], [address], 3 08:47:10 ferritin, serum or plasma 2022 023 [email or web address] 6 [facility], [address] [place], [address], 3 08:47:10 iron + total iron-bindin g capacity (TIBC), serum 2022 023 [email or web address] 6 [facility], [address] [place], [address], 3 08:47:10 CMP, serum or plasma 2022 023 [email or web address] 6 [facility], [address] [place], [address], 3 08:47:10 CBC w/ auto diff 2022 023 MIESHA [facility], [address], [address], [place], [address], 3 07:14:24 vitamin D, 25-hydroxy, total, serum 2022 023 MIESHA [facility], [address], [address], [place], [address], 3 07:14:27 vitamin B12 + folate, serum or blood 2022 023 MIESHA [facility], [address], [address], [place], [address], 3 07:14:26 magnesium, serum or plasma 2022 023 MIESHA [facility], [address], [address], [place], [address], 3 07:14:28 TSH + free T4, serum 2022 023 MIESHA [facility], [address], [address], [place], [address], 3 07:14:23 CMP, serum or plasma 2022 023 M[facility], [address], [address], [place], [address], 3 07:14:25 iron + TIBC + ferritin, serum 2022 023 M[facility]HA [facility], [address], [address], [place], [address], 3 07:14:21 iron + TIBC + ferritin, serum 2022 023 MIESHA [facility], [address], [address], [place], [address], 3 08:21:13 CBC w/ auto diff 2022 023 [facility], [address], [facility] [address], [place], [address], 3 08:21:13 CMP, serum or plasma 2022 023 [facility], [address], [facility] [address], [place], [address], 3 08:21:15 Referral behavioral health referral 2022 023 [email or web address] 3 [facility], [facility]0 [facility], [address], [place], [address], 3 08:01:02 Procedures None recorded. Surgeries None recorded. Imaging None recorded. Medication Orders Vitamin D3 125 mcg (5,000 unit) tablet 2022 023 [facility], [address] [place] [address], [id number], 3 16:18:04 duloxetine 60 mg capsule,del ayed release 2022 023 [email or web address] 2 [facility], [address] [place] [address], [id number], 3 14:25:59 Wegovy 0.25 mg/0.5 mL subcutaneou s pen injector 2022 023 [email or web address] 9 [facility] [place], [address], 3 08:44:47 Flonase Allergy Relief 50 mcg/actuati on nasal spray,suspe nsion 2022 023 [email or web address] 2 [facility], [address] [place], [address], 3 16:23:10 Zyrtec 10 mg tablet 2022 023 [email or web address] [id number] 9 [facility], [address] [place], [address], 3 08:44:34 Wellbutrin SR 150 mg tablet, 12 hr sustained-r elease [address] [facility], [address] [place], [address], 3 08:44:29 Seroquel 100 mg tablet 2022 023 [email or web address] [id number] 9 [facility], [address] [place], [address], 3 08:44:54 Patient TargetsNo targets recorded. Patient [...] ug/dL 250-45 0 Not Available [facility] ([facility]) [address] [place], [address], 07/19/2023 08:21:12 07/18/20 23 07/19/2023 FE+TI BC+FE R UIBC 396 ug/dL 131-42 5 Not Available [facility] ([facility]) [address] [place], [address], 07/19/2023 08:21:12 07/18/20 23 07/19/2023 FE+TI BC+FE R iron 31 ug/dL 27-159 Not Available [facility] ([facility]) [address] [place], [address], 07/19/2023 08:21:12 07/18/20 23 07/19/2023 FE+TI BC+FE R iron saturation 7 % 15-55 alert low Not Available [facility] ([facility]) [address] [place], [address], 07/19/2023 08:21:12 07/18/20 23 07/19/2023 FE+TI BC+FE R ferritin 61 NG/mL 15-150 Not Available [facility] ([facility]) [address] [place], [address], 07/19/2023 08:21:12 07/18/20 23 07/19/2023 CBC WITH DIFFE RENTI AL/PL ATELE T WBC 9.7 x10e3 /uL 3.4-10 .8 Not Available [facility] ([facility]) [address] [place], [address], 07/19/2023 08:21:13 07/18/20 23 07/19/2023 CBC WITH DIFFE RENTI AL/PL ATELE T RBC 4.95 x10e6 /uL 3.77-5 .28 Not Available [facility] ([facility]) [address] [place], [address], 07/19/2023 08:21:13 07/18/2007/19/2023 CBC WITH DIFFE RENTI AL/PL ATELE T hemoglobin 13.1 g/dL 11.1-1 5.9 Not Available [facility] ([facility]) [address] [place], [address], 07/19/2023 08:21:13 07/18/20 23 07/19/2023 CBC WITH DIFFE RENTI AL/PL ATELE T hematocrit 40.6 % 34.0-4 6.6 Not Available [facility] ([facility]) [address] [place], [address], 07/19/2023 08:21:13 07/18/20 23 07/19/2023 CBC WITH DIFFE RENTI AL/PL ATELE T MCV 82 fL 79-97 Not Available [facility] ([facility]) [address] [facility], [place], [address], 07/19/2023 08:21:13 07/18/20 23 07/19/2023 CBC WITH DIFFE RENTI AL/PL ATELE T MCH 26.5 pg 26.6-3 3.0 below low normal Not Available [facility] ([facility]) [address] [facility], [place], [address], 07/19/2023 08:21:13 07/18/20 23 07/19/2023 CBC WITH DIFFE RENTI AL/PL ATELE T MCHC 32.3 g/dL 31.5-3 5.7 Not Available [facility] ([facility]) [address] [facility], [place], [address], 07/19/2023 08:21:13 07/18/20 23 07/19/2023 CBC WITH DIFFE RENTI AL/PL ATELE T RDW 13.1 % 11.7-1 5.4 Not Available [facility] ([facility]) [address] [facility], [place], [address], 07/19/2023 08:21:13 07/18/20 23 07/19/2023 CBC WITH DIFFE RENTI AL/PL ATELE T platelets 287 x10e3 /uL 150-45 0 Not Available [facility] ([facility]) [address] [place], [address], 07/19/2023 08:21:13 07/18/20 23 07/19/2023 CBC WITH DIFFE RENTI AL/PL ATELE T neutrophils 65 % not estab. Not Available [facility] ([facility]) [address] [place], [address], 07/19/2023 08:21:13 07/18/20 23 07/19/2023 CBC WITH DIFFE RENTI AL/PL ATELE T lymphs 24 % not estab. Not Available [facility] ([facility]) [address] [facility], [place], [address], 07/19/2023 08:21:13 07/18/20 23 07/19/2023 CBC WITH DIFFE RENTI AL/PL ATELE T monocytes 7 % not estab. Not Available [facility] ([facility]) [address] [facility], [place], [address], 07/19/2023 08:21:13 07/18/20 23 07/19/2023 CBC WITH DIFFE RENTI AL/PL ATELE T eos 3 % not estab. Not Available [facility] ([facility]) [address] [facility], [place], [address], 07/19/2023 08:21:13 07/18/20 23 07/19/2023 CBC WITH DIFFE RENTI AL/PL ATELE T basos 0 % not estab. Not Available [facility] ([facility]) [address] [place], [address], 07/19/2023 08:21:13 07/18/20 23 07/19/2023 CBC WITH DIFFE RENTI AL/PL ATELE T immature cells ENVIRONMENTAL TEST TECHNICIAN Not Available [facility] ([facility]) [address] [place], [address], 07/19/2023 08:21:13 07/18/20 23 07/19/2023 CBC WITH DIFFE RENTI AL/PL ATELE T neutrophils (absolute) 6.4 x10e3 /uL 1.4-7. 0 Not Available [facility] ([facility]) [address] [place], [address], 07/19/2023 08:21:13 07/18/20 23 07/19/2023 CBC WITH DIFFE RENTI AL/PL ATELE T lymphs (absolute) 2.3 x10e3 /uL 0.7-3. 1 Not Available [facility] ([facility]) [address] [facility], [place], [address], 07/19/2023 08:21:13 07/18/20 23 07/19/2023 CBC WITH DIFFE RENTI AL/PL ATELE T monocytes(ab solute) 0.6 x10e3 /uL 0.1-0. 9 Not Available [facility] ([facility]) [address] [facility], [place], [address], 07/19/2023 08:21:13 07/18/20 23 07/19/2023 CBC WITH DIFFE RENTI AL/PL ATELE T eos (absolute) 0.3 x10e3 /uL 0.0-0. 4 Not Available [facility] ([facility]) [address] [facility], [place], [address], 07/19/2023 08:21:13 07/18/20 23 07/19/2023 CBC WITH DIFFE RENTI AL/PL ATELE T baso (absolute) 0.0 x10e3 /uL 0.0-0. 2 Not Available [facility] ([facility]) [address] [facility], [place], [address], 07/19/2023 08:21:13 07/18/20 23 07/19/2023 CBC WITH DIFFE RENTI AL/PL ATELE T immature granulocytes 1 % not estab. Not Available [facility] ([facility]) [address] [facility], [place], [address], 07/19/2023 08:21:13 07/18/20 23 07/19/2023 CBC WITH DIFFE RENTI AL/PL ATELE T immature grans (abs) 0.1 x10e3 /uL 0.0-0. 1 Not Available [facility] ([facility]) [address] [facility], [place], [address], 07/19/2023 08:21:13 07/18/20 23 07/19/2023 CBC WITH DIFFE RENTI AL/PL ATELE T NRBC ENVIRONMENTAL TEST TECHNICIAN Not Available [facility] ([facility]) [address] [facility], [place], [address], 07/19/2023 08:21:13 07/18/20 23 07/19/2023 CBC WITH DIFFE RENTI AL/PL ATELE T hematology comments: ENVIRONMENTAL TEST TECHNICIAN Not Available [facility] ([facility]) [address] [facility], [place], [address], 07/19/2023 08:21:13 07/18/20 23 07/19/2023 COMP. METAB OLIC PANEL (14) glucose 93 mg/dL 70-99 Not Available [facility] ([facility]) [address] [facility], [place], [address], 07/19/2023 08:21:15 07/18/20 23 07/19/2023 COMP. METAB OLIC PANEL (14) BUN 14 mg/dL 6-20 Not Available [facility] ([facility]) [address] [place], [address], 07/19/2023 08:21:15 07/18/20 23 07/19/2023 COMP. METAB OLIC PANEL (14) creatinine 0.77 mg/dL 0.57-1 .00 Not Available [facility] ([facility]) [address] [facility], [place], [address], 07/19/2023 08:21:15 07/18/20 23 07/19/2023 COMP. METAB OLIC PANEL (14) eGFR 110 mL/mi n/1.7 3 >59 Not Available [facility] ([facility]) [address] [place], [address], 07/19/2023 08:21:15 07/18/20 23 07/19/2023 COMP. METAB OLIC PANEL (14) BUN/creatini ne ratio 18 9-23 Not Available [facility] ([facility]) [address] [facility] [place], [address], 07/19/2023 08:21:15 07/18/20 23 07/19/2023 COMP. METAB OLIC PANEL (14) sodium 141 mmol/ L 134-14 4 Not Available [facility] ([facility]) [address] [place], [address], 07/19/2023 08:21:15 07/18/20 23 07/19/2023 COMP. METAB OLIC PANEL (14) potassium 4.1 mmol/ L 3.5-5. 2 Not Available [facility] ([facility]) [address] [facility] [place], [address], 07/19/2023 08:21:15 07/18/20 23 07/19/2023 COMP. METAB OLIC PANEL (14) chloride 104 mmol/ L 96-106 Not Available [facility] ([facility]) [address] [facility] [place], [address], 07/19/2023 08:21:15 07/18/20 23 07/19/2023 COMP. METAB OLIC PANEL (14) carbon dioxide, total 21 mmol/ L 20-29 Not Available [facility] ([facility]) [address] [facility] [place], [address], 07/19/2023 08:21:15 07/18/20 23 07/19/2023 COMP. METAB OLIC PANEL (14) calcium 9.4 mg/dL 8.7-10 .2 Not Available [facility] ([facility]) [address] [facility] [place], [address], 07/19/2023 08:21:15 07/18/20 23 07/19/2023 COMP. METAB OLIC PANEL (14) protein, total 7.2 g/dL 6.0-8. 5 Not Available [facility] ([facility]) [address] [facility] [place], [address], 07/19/2023 08:21:15 07/18/20 23 07/19/2023 COMP. METAB OLIC PANEL (14) albumin 4.3 g/dL 4.0-5. 0 Not Available [facility] ([facility]) [address] [facility], [place], [address], 07/19/2023 08:21:15 07/18/20 23 07/19/2023 COMP. METAB OLIC PANEL (14) globulin, total 2.9 g/dL 1.5-4. 5 Not Available [facility] ([facility]) [address] [facility], [place], [address], 07/19/2023 08:21:15 07/18/20 23 07/19/2023 COMP. METAB OLIC PANEL (14) A/G ratio 1.5 1.2-2. 2 Not Available [facility] ([facility]) [address] [facility], [place], [address], 07/19/2023 08:21:15 07/18/20 23 07/19/2023 COMP. METAB OLIC PANEL (14) bilirubin, total 0.2 mg/dL 0.0-1. 2 Not Available [facility] ([facility]) [address] [facility], [place], [address], 07/19/2023 08:21:15 07/18/20 23 07/19/2023 COMP. METAB OLIC PANEL (14) alkaline phosphatase 80 IU/L 44-121 Not Available [facility] ([facility]) [address] [facility], [place], [address], 07/19/2023 08:21:15 07/18/20 23 07/19/2023 COMP. METAB OLIC PANEL (14) AST (SGOT) 14 IU/L 0-40 Not Available [facility] ([facility]) [address] [place], [address], 07/19/2023 08:21:15 07/18/20 23 07/19/2023 COMP. METAB OLIC PANEL (14) ALT (SGPT) 10 IU/L 0-32 Not Available [facility] ([facility]) [address] [place], [address], 07/19/2023 08:21:15 08/08/2008/09/2023 FE+TI BC+FE R iron bind.cap.(TI BC) 369 ug/dL 250-45 0 Not Available [facility] ([facility]) [address] [place], [address], 08/09/2023 07:14:21 08/08/2008/09/2023 FE+TI BC+FE R UIBC 334 ug/dL 131-42 5 Not Available [facility] ([facility]) [address] [place], [address], 08/09/2023 07:14:21 08/08/2008/09/2023 FE+TI BC+FE R iron 35 ug/dL 27-159 Not Available [facility] ([facility]) [address] [place], [address], 08/09/2023 07:14:21 08/08/2008/09/2023 FE+TI BC+FE R iron saturation 9 % 15-55 alert low Not Available [facility] ([facility]) [address] [place], [address], 08/09/2023 07:14:21 08/08/2008/09/2023 FE+TI BC+FE R ferritin 53 NG/mL 15-150 Not Available [facility] ([facility]) [address] [place], [address], 08/09/2023 07:14:21 08/08/2008/09/2023 TSH+F REE T4 TSH 0.925 uIU/m L 0.450- 4.500 Not Available [facility] ([facility]) [address] [facility] [place], [address], 08/09/2023 07:14:22 08/08/2008/09/2023 TSH+F REE T4 T4,free(dire ct) 0.96 NG/dL 0.82-1 .77 Not Available [facility] ([facility]) [address] [facility], [place], [address], 08/09/2023 07:14:22 08/08/2008/09/2023 CBC WITH DIFFE RENTI AL/PL ATELE T WBC 7.7 x10e3 /uL 3.4-10 .8 Not Available [facility] ([facility]) [address] [place], [address], 08/09/2023 07:14:24 08/08/2008/09/2023 CBC WITH DIFFE RENTI AL/PL ATELE T RBC 4.90 x10e6 /uL 3.77-5 .28 Not Available [facility] ([facility]) [address] [facility], [place], [address], 08/09/2023 07:14:24 08/08/2008/09/2023 CBC WITH DIFFE RENTI AL/PL ATELE T hemoglobin 13.2 g/dL 11.1-1 5.9 Not Available [facility] ([facility]) [address] [place], [address], 08/09/2023 07:14:24 08/08/2008/09/2023 CBC WITH DIFFE RENTI AL/PL ATELE T hematocrit 40.4 % 34.0-4 6.6 Not Available [facility] ([facility]) [address] [place], [address], 08/09/2023 07:14:24 08/08/2008/09/2023 CBC WITH DIFFE RENTI AL/PL ATELE T MCV 82 fL 79-97 Not Available [facility] ([facility]) [address] [facility], [place], [address], 08/09/2023 07:14:24 08/08/2008/09/2023 CBC WITH DIFFE RENTI AL/PL ATELE T MCH 26.9 pg 26.6-3 3.0 Not Available [facility] ([facility]) [address] [facility], [place], [address], 08/09/2023 07:14:24 08/08/2008/09/2023 CBC WITH DIFFE RENTI AL/PL ATELE T MCHC 32.7 g/dL 31.5-3 5.7 Not Available [facility] ([facility]) [address] [facility], [place], [address], 08/09/2023 07:14:24 08/08/2008/09/2023 CBC WITH DIFFE RENTI AL/PL ATELE T RDW 13.3 % 11.7-1 5.4 Not Available [facility] ([facility]) [address] [facility], [place], [address], 08/09/2023 07:14:24 08/08/2008/09/2023 CBC WITH DIFFE RENTI AL/PL ATELE T platelets 298 x10e3 /uL 150-45 0 Not Available [facility] ([facility]) [address] [facility], [place], [address], 08/09/2023 07:14:24 08/08/2008/09/2023 CBC WITH DIFFE RENTI AL/PL ATELE T neutrophils 68 % not estab. Not Available [facility] ([facility]) [address] [facility], [place], [address], 08/09/2023 07:14:24 08/08/2008/09/2023 CBC WITH DIFFE RENTI AL/PL ATELE T lymphs 23 % not estab. Not Available [facility] ([facility]) [address] [facility], [place], [address], 08/09/2023 07:14:24 08/08/2008/09/2023 CBC WITH DIFFE RENTI AL/PL ATELE T monocytes 6 % not estab. Not Available [facility] ([facility]) [address] [facility], [place], [address], 08/09/2023 07:14:24 08/08/2008/09/2023 CBC WITH DIFFE RENTI AL/PL ATELE T eos 3 % not estab. Not Available [facility] ([facility]) [address] [facility], [place], [address], 08/09/2023 07:14:24 08/08/2008/09/2023 CBC WITH DIFFE RENTI AL/PL ATELE T basos 0 % not estab. Not Available [facility] ([facility]) [address] [facility], [place], [address], 08/09/2023 07:14:24 08/08/2008/09/2023 CBC WITH DIFFE RENTI AL/PL ATELE T immature cells ENVIRONMENTAL TEST TECHNICIAN Not Available [facility] ([facility]) [address] [facility], [place], [address], 08/09/2023 07:14:24 08/08/2008/09/2023 CBC WITH DIFFE RENTI AL/PL ATELE T neutrophils (absolute) 5.2 x10e3 /uL 1.4-7. 0 Not Available [facility] ([facility]) [address] [facility], [place], [address], 08/09/2023 07:14:24 08/08/2008/09/2023 CBC WITH DIFFE RENTI AL/PL ATELE T lymphs (absolute) 1.8 x10e3 /uL 0.7-3. 1 Not Available [facility] ([facility]) [address] [place], [address], 08/09/2023 07:14:24 08/08/20 23 08/09/2023 CBC WITH DIFFE RENTI AL/PL ATELE T monocytes(ab solute) 0.5 x10e3 /uL 0.1-0. 9 Not Available [facility] ([facility]) [address] [facility], [place], [address], 08/09/2023 07:14:24 08/08/2008/09/2023 CBC WITH DIFFE RENTI AL/PL ATELE T eos (absolute) 0.2 x10e3 /uL 0.0-0. 4 Not Available [facility] ([facility]) [address] [facility], [place], [address], 08/09/2023 07:14:24 08/08/2008/09/2023 CBC WITH DIFFE RENTI AL/PL ATELE T baso (absolute) 0.0 x10e3 /uL 0.0-0. 2 Not Available [facility] ([facility]) [address] [facility], [place], [address], 08/09/2023 07:14:24 08/08/2008/09/2023 CBC WITH DIFFE RENTI AL/PL ATELE T immature granulocytes 0 % not estab. Not Available [facility] ([facility]) [address] [facility], [place], [address], 08/09/2023 07:14:24 08/08/2008/09/2023 CBC WITH DIFFE RENTI AL/PL ATELE T immature grans (abs) 0.0 x10e3 /uL 0.0-0. 1 Not Available [facility] ([facility]) [address] [facility], [place], [address], 08/09/2023 07:14:24 08/08/2008/09/2023 CBC WITH DIFFE RENTI AL/PL ATELE T NRBC ENVIRONMENTAL TEST TECHNICIAN Not Available [facility] ([facility]) [address] [place], [address], 08/09/2023 07:14:24 08/08/20 23 08/09/2023 CBC WITH DIFFE RENTI AL/PL LATONYALE T hematology comments: ENVIRONMENTAL TEST TECHNICIAN Not Available [facility] ([facility]) [address] [facility], [place], [address], 08/09/2023 07:14:24 08/08/20 23 08/09/2023 COMP. METAB OLIC PANEL (14) glucose 99 mg/dL 70-99 Not Available [facility] ([facility]) [address] [facility], [place], [address], 08/09/2023 07:14:25 08/08/2008/09/2023 COMP. METAB OLIC PANEL (14) BUN 17 mg/dL 6-20 Not Available [facility] ([facility]) [address] [facility], [place], [address], 08/09/2023 07:14:25 08/08/20 23 08/09/2023 COMP. METAB OLIC PANEL (14) creatinine 0.83 mg/dL 0.57-1 .00 Not Available [facility] ([facility]) [address] [facility], [place], [address], 08/09/2023 07:14:25 08/08/20 23 08/09/2023 COMP. METAB OLIC PANEL (14) eGFR 100 mL/mi n/1.7 3 >59 Not Available [facility] ([facility]) [address] [facility], [place], [address], 08/09/2023 07:14:25 08/08/20 23 08/09/2023 COMP. METAB OLIC PANEL (14) BUN/creatini ne ratio 20 - Not Available [facility] ([facility]) [address] [place], [address], 08/09/2023 07:14:25 08/08/20 23 08/09/2023 COMP. METAB OLIC PANEL (14) sodium 144 mmol/ L 134-14 4 Not Available [facility] ([facility]) [address] [facility] [place], [address], 08/09/2023 07:14:25 08/08/20 23 08/09/2023 COMP. METAB OLIC PANEL (14) potassium 4.4 mmol/ L 3.5-5. 2 Not Available [facility] ([facility]) [address] [facility] [place], [address], 08/09/2023 07:14:25 08/08/20 23 08/09/2023 COMP. METAB OLIC PANEL (14) chloride 105 mmol/ L 96-106 Not Available [facility] ([facility]) [address] [facility] [place], [address], 08/09/2023 07:14:25 08/08/20 23 08/09/2023 COMP. METAB OLIC PANEL (14) carbon dioxide, total 22 mmol/ L 20-29 Not Available [facility] ([facility]) [address] [facility] [place], [address], 08/09/2023 07:14:25 08/08/2008/09/2023 COMP. METAB OLIC PANEL (14) calcium 9.2 mg/dL 8.7-10 .2 Not Available [facility] ([facility]) [address] [place], [address], 08/09/2023 07:14:25 08/08/2008/09/2023 COMP. METAB OLIC PANEL (14) protein, total 6.9 g/dL 6.0-8. 5 Not Available [facility] ([facility]) [address] [place], [address], 08/09/2023 07:14:25 08/08/20 23 08/09/2023 COMP. METAB OLIC PANEL (14) albumin 4.3 g/dL 4.0-5. 0 Not Available [facility] ([facility]) [address] [place], [address], 08/09/2023 07:14:25 08/08/20 23 08/09/2023 COMP. METAB OLIC PANEL (14) globulin, total 2.6 g/dL 1.5-4. 5 Not Available [facility] ([facility]) [address] [facility], [place], [address], 08/09/2023 07:14:25 08/08/20 23 08/09/2023 COMP. METAB OLIC PANEL (14) A/G ratio 1.7 1.2-2. 2 Not Available [facility] ([facility]) [address] [facility], [place], [address], 08/09/2023 07:14:25 08/08/20 23 08/09/2023 COMP. METAB OLIC PANEL (14) bilirubin, total <0.2 mg/dL 0.0-1. 2 Not Available [facility] ([facility]) [address] [facility], [place], [address], 08/09/2023 07:14:25 08/08/20 23 08/09/2023 COMP. METAB OLIC PANEL (14) alkaline phosphatase 80 IU/L 44-121 Not Available [facility] ([facility]) [address] [facility], [place], [address], 08/09/2023 07:14:25 08/08/20 23 08/09/2023 COMP. METAB OLIC PANEL (14) AST (SGOT) 13 IU/L 0-40 Not Available [facility] ([facility]) [address] [facility], [place], [address], 08/09/2023 07:14:25 08/08/20 23 08/09/2023 COMP. METAB OLIC PANEL (14) ALT (SGPT) 14 IU/L 0-32 Not Available [facility] ([facility]) [address] [facility], [place], [address], 08/09/2023 07:14:25 08/08/20 23 08/09/2023 VITAM IN B12 AND FOLAT E vitamin B12 437 pg/mL 232-12 45 Not Available [facility] ([facility]) [address] [facility], [place], [address], 08/09/2023 07:14:26 08/08/20 23 08/09/2023 VITAM IN B12 AND FOLAT E folate (folic acid), serum 13.0 NG/mL >3.0 A serum folat e sandra ntrat ion of less than 3.1 ng/mL is consi dered to repre sent clini gisell defic iency . Not Available [facility] ([facility]) [address] [facility], [place], [address], 08/09/2023 07:14:26 08/08/20 23 08/09/2023 VITAM IN [...] and D. Alicia avalos [place]: The Natio [facility] Press . 2. Aiden rivera MF, Farrah dixon [place], Hillary off-F errjaelyn i NUÑEZ, et al. Evalu ation , treat ment, and preve ntion of vitam in D defic iency : an Endoc rine Socie ty clini gisell pract ice guide line. JCEM. 2010; 96(7) :1911 -30. Not Available [facility] ([facility]) [address] [facility], [place], [address], 08/09/2023 07:14:27 08/08/20 23 08/09/2023 MAGNE SIUM magnesium 1.9 mg/dL 1.6-2. 3 Not Available [facility] ([facility]) [address] [facility], [place], [address], 08/09/2023 07:14:28 05/26/20 23 05/26/2023 PAP nap (PROC ) No observ ation record ed. [email or web address] Not Available 2022 09:46:47 Result Notes None recorded. Procedures Surgical History Date Name Laterality Status Provider Name and Address Organization Details Recorded Time 03/18/2020 Date of Last Pap Smear completed MARGARETBart MELTON [facility] [place] 04/05/2023 13:05:37 10/30/2011 Tonsillecto my/Adenoide ctomy completed [facility] JONES MELTON [facility] [place] 04/05/2023 13:05:37 Imaging [...] propionate 50 mcg/actuati on nasal spray,suspe nsion [place] 1 spray every day by intranasa l [...] Updated DateTime 3 157.48 cm 50.1 kg/m2 530668. 31 g 97.7 [degF] 98 % 98 % 105 /min 92/66 mm[Hg] MARGARET MELTON [facility] [place] 3 14:59:03 Date Recorded Body height Body mass index (BMI) Body weight Body temperature Oxygen saturation Oxygen saturation in Arterial blood by Pulse oximetry Heart rate Systolic And Diastolic Provider Name and Address Organization Details Last Updated DateTime 3 157.48 cm 47.6 kg/m2 025306. 42 g 98.2 [degF] 99 % 99 % 103 /min 124/86 mm[Hg] MARAGRET MELTON [facility] [place] 3 15:58:53 Date Recorded Body height Body weight Body mass index (BMI) Body temperature Oxygen saturation Oxygen saturation in Arterial blood by Pulse oximetry Heart rate Systolic And Diastolic Provider Name and Address Organization Details Last Updated DateTime 3 157.48 cm 059752. 72 g 49.9 kg/m2 97.7 [degF] 100 % 100 % 128 /min 100/76 mm[Hg] MARGARET MELTON [facility] [place] 3 10:09:53 Date Recorded Body height Body mass index (BMI) Body weight Body temperature Oxygen saturation Oxygen saturation in Arterial blood by Pulse oximetry Heart rate Systolic And Diastolic Provider Name and Address Organization Details Last Updated DateTime 3 157.48 cm 51.9 kg/m2 014016. 87 g 98 [degF] 98 % 98 % 91 /min 127/74 mm[Hg] Agnes MELTON [facility] [place] 3 08:43:53 Date Recorded Body height Body mass index (BMI) Body weight Body temperature Oxygen saturation Oxygen saturation in Arterial blood by Pulse oximetry Heart rate Systolic And Diastolic Provider Name and Address Organization Details Last Updated DateTime 157.48 cm 51 kg/m2 077514. 27 g 97.5 [degF] 99 % 99 % 129 /min 124/90 mm[Hg] Dheeraj MULTANI [facility] [place] 15:59:39 Social History Question Answer Notes LastModified by [employer] Details LastModified Time Tobacco Smoking Status Former Smoker MARGARET hassan, [facility] [place] 04/05/2023 13:05:37 Do You [...] Functional Status Question Answer Note LastModified by [employer] Details LastModified Time Do you use any illicit or recreational drugs? Yes Information not available 04/05/2023 Do you or have you ever used any other forms of tobacco or nicotine? Yes [email or web address] Information not available 06/02/2023 What is your level of alcohol consumption? Occasional Information not available 04/05/2023 Do you or have you ever used smokeless tobacco? 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 Current user of electronic cigarettes [email or web address] Information not available 06/02/2023 What is your exercise level? Moderate Information not available 04/05/2023 Mental Status Question Answer Note LastModified by Organization D etails LastModified Time Do you feel stressed (tense, restless, nervous, or anxious, or unable to sleep at night)? [id number] Information not available 04/05/2023 Family History Relationship [...] SNOMED-CT Code Diagnosis ICD10 Code Diagnosis Note [id number] Unruly Bustillo in, [employer] [facility], located within [facility] [address] [facility] [address] [place] [address] 04/05/2023 13:02:12 04/05/2023 13:39:51 Adult health examination 180239113 Z00.00 Will check complete bloodwork. Will call with results.Co unseled on dietary modificati ons and healthy eating habits.Cou nseled on decreasing stress levels,Rec ommend yearly eye examsRecom mend regular dental exams/ashely rnings. Thyroid di sorder screening 816307293 Z13.29 Mixed anxi ety and depressive disorder 298995977 F41.8 Screening for malignant neoplasm of cervix 073781467 Z12.[address] James Cowart. History of ectopic pregnancie s. She is up to date on preventati ve screenings . Excessive daytime sleepiness with sleep paralysis 906997622 G47.53 Patient has a history of sleep paralysis. History of snoring. History of restless sleep patterns. Body mass index 40+ - severely obese 282984035 Z68.43 Patient is exercising . Patient is attempting to make dietary modificati ons. [id number] Unruly Bustillo in[address] [place] [address] 04/06/2023 08:02:02 04/06/2023 08:41:28 [id number] Tramaine Winkler MD [address] [place] [address] 04/26/2023 12:57:14 04/26/2023 13:15:14 Obstructive sleep apnea syndrome 95934849 G47.33 papnap...t itration to autopap 6-20 cm H2O. Obesity 778301365 E66.9 Patient aware that weight loss will improve not eliminate her need for auto PAP. [id number] Unruly Bustillo in[address] [place] [address] 06/02/2023 14:51:05 06/02/2023 15:15:39 Mixed anxiety and depressive disorder 221683222 F41.8 Patient is tolerating medication . Will refill.Danny l see back in 1 month.Will check vitamin levels, CBC, CMP, and iron panel at that time. [id number] Unruly Bustillo in[address] [place] [address] 07/18/2023 15:54:45 07/18/2023 16:18:02 Viral upper respiratory tract infection 749744598 J06.9 Humidifier at night.Use medication as directed.O TC meds for cough.Foll ow up if no improvemen t. Iron defic iency anemia 94484305 D50.9 Patient finished her Iron supplement s.Will check levels today. Will call with results. Body mass index 30+ - obesity 517651310 Z68.42 Will start Wegovy.Danny l see back in 1 month for weight check.Will increase as tolerated. [id number] [facility] [address] [place] [address] [address] [place] [address] 08/08/2023 09:58:51 08/08/2023 11:08:21 Tremor 82995727 R25.1 Will check lab work. Will call with results. Iron defic iency anemia 14458517 D50.9 Mixed anxi ety and depressive disorder 538313910 F41.8 Patient is reacting to the medication [...] do genetic testing at patient request today. [id number] [facility] [address] [facility] [address] [place] [address] 08/23/2023 15:37:17 08/23/2023 16:37:13 Mixed anxiety and depressive disorder 025967756 F41.8 Counseled in depth on symptoms of concern and when to go to ER. at chairside. Counseled on concerns and behavior changes and when to reach out for help. Support system is intact at home.Jose Luis knight on genetic testing results.Se e patient back in 1 month.Catrina ent is tolerating the Duloxetine 60mg. Vitamin D deficiency 347 84293 E55.9 [id number] Aden Petty MD [facility] [address] [facility] [address] [place] [address] 08/23/2023 08:31:40 08/23/2023 09:08:39 Iron deficiency anemia 78330803 D50.9 Labs on August 08, 2023 with magnesium at 1.9. Vitamin-D level low at 22.4. B12 437. Folic acid 13. Normal liver function testing. Normal renal function. Normal electrolyt es. White blood cell count 7.7. Red blood cell count 4.90 hemoglobin 13.2 and hematocrit 40.4. MCV 82. Platelet count 129459. Normal cell differenti al. TSH 0.9. T4 [...] response to increasing PO supplement ation. Headache 12172138 R51.9 Concern for possible migraine. Will follow-up [...] ID Guarantor Name 10/01/2023 1 [place] [id number] A Leticia Wilkins [id number] 17 [id number] Leticia Vo Notes Date Note Type Note Provider Name and Address Organization Details Recorded Time 06/02/2023 text/html patient presents to clinic for medication update. She was placed inpatient at [facility] and was treated by Dr. Rankin. She states her prozac was causing hallucinations. She was started on seroquel and wellbutrin. She is tolerating well. She states she feels so much better. She does not have a follow up scheduled with Dr. Rankin. Unruly Rosen, [employer]BER [address], [place], [address], [facility] 06/02/2023 15:11:10 07/18/2023 text/html patient presents to clinic for follow up. She states she is tolerating her medication. No complaints. She reports some increased sinus drainage and her left ear is itchy. Denies any fever. Reports a dry cough. Denies any sore throat. Unruly Rosen APRN [address], [place], [address], [facility] & [place] 07/18/2023 16:25:02 08/08/2023 text/html patient presents to clinic for an intermittent tremor. She has been titrating the Seroquel over the last week since we spoke. She denies any syncopal episodes. Denies any chest pain. Denies any thoughts of self harm or homicidal thoughts. Denies any hallucinations today. Unruly Rosen APRN [address], [place], [address], [facility] [place] 08/08/2023 14:26:50 08/23/2023 text/html patient presents to clinic for follow up. She is tolerating the Duloxetine. She denies suicidal or homicidal thoughts. She states that the tremor is completely gone. She states she sees hematology October 04. Unruly Rosen APRN [address], [place], [address], [facility] [place] 08/23/2023 16:18:32 08/23/2023 [...] and hematocrit 40.4. MCV 82. Platelet count 537362. Normal cell differential. TSH 0.9. T4 0.96. [...] to increasing PO supplementation. Aden Petty MD [address], [place], [address], [place] - [facility] [place] & [place] 08/23/2023 09:44:31 OBGyn Episode No OBEpisode recorded.
--- OUTSIDE RECORDS SUMMARY | 2025-05-05 14:00 | XMS_ITS | Referral Summary ---
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
[2025-05-05 14:19] LABS: Microscopic, Urine URINE MICROSCOPIC (MICROSCOPIC)
[2025-05-05 14:25] VITALS: BP 125/82; PULSE 110; RESP 17; TEMP 37.1; O2SAT 98; BMI 57.0
[2025-05-05 14:27] LABS: Bilirubin,Urine Negative (Negative); Color,Urine YELLOW (Yellow); Glucose,Urine (UA) Negative (Negative); Ketones,Urine Negative (Negative); Leukocyte Esterase,Urine TRACE (Negative); PH,Urine 6.0 (5.0-8.5); Protein,Urine Negative (Negative); Specific Gravity, Urine 1.020 (1.005-1.030); Urobilinogen,Urine 0.2 EU/dl (0.2)
[2025-05-05 14:57] LABS: Bacteria,Urine 1+ /lpf
== END 2025-05-05 14:50 | disposition home or self-care (01) ==
LOC: OBOUT 13:56 → OB 13:57
PROVIDERS: PCP Nurse Practitioner Family; Visit Provider Nurse Practitioner Obstetrics & Gynecology
DX: O34.33 Maternal care for cervical incompetence, third trimester (principal); O09.893 Supervision of other high risk pregnancies, third trimester; R87.89 Other abnormal findings in specimens from female genital organs; Z3A.35 35 weeks gestation of pregnancy
CPT/HCPCS: 59025; 81001; 99212; G0463

== ENCOUNTER 2025-05-08 15:39 | Outpatient (CLI) | payer BC, SELFPAY ==
--- OUTSIDE RECORDS SUMMARY | 2025-05-08 15:43 | XMS_ITS | Clinical Summary ---
Author Organization Healthcare Address [address] [place] [address] Care Team Providers Care Sales Support Advisor Name Role Phone Stephanie Allen Primary Care Provider [phone] Allergies Active Allergy Reactions Criticality Noted Date [...] Team Description 02/21/2025 Telephone Obstetrics & Gynecology [facility] [place] [address] James Cowart MD from Last [...] 19+ 3-dose series) 2017 [facility]-Pap Smear 2019 [id number] Vaccine ( - season) 2024 [facility]-Influenza Vaccine [...] Reactive Non Reactive 11/01/2024 1:54 PM EST [facility] Comment:Screening for HIV 1 & 2 antibodies, and P24 antigen is NONREACTIVE. No confirmatory testing is required. Blood Venous blood specimen / Unknown Venipuncture / Unknown 11/01/2024 10:24 AM EST 11/01/2024 12:52 PM EST Result Santino Cowart MD LAB BLOOD ORDERABLES Final Resu lt Performing Organization Address City/[facility]/ZIP Co de Phone Number [facility] [address] [place] [address] * Hepatitis C Antibody w/Reflex to HCV Quant PCR (11/01/2024 10:24 AM EST) Hepatitis C Antibody Negative Negative 11/01/2024 1:31 PM EST [facility] Blood Venous blood specimen / Unknown Venipuncture / Unknown 11/01/2024 10:24 AM EST 11/01/2024 12:52 PM EST Result Santino Cowart MD LAB BLOOD ORDERABLES Final Resu lt Performing Organization Address City/[facility]/ZIP Co de Phone Number [facility] [address] [place] [address] from Last 3 Months or Most Recently Relevant to Health Maintenance Additional Health Concerns Active Problems Noted Date Diagnosed Date CPM S24 PP LABOR (OBSTETRICS) 11/19/2024 Insurance [place] Care Teams Sales Support Advisor Relationship Specialty Start Date End Date Stephanie Allen PA [address] [place] [address] PCP - General 08/30/24
--- OUTSIDE RECORDS SUMMARY | 2025-05-08 15:43 | XMS_ITS | Encounter Summary ---
Author Organization Healthcare Address [address] [place] [address] Care Team Providers Care Manager Contact Name Role Phone None, None Primary Care Provider [phone] Stephanie Allen Primary Care Provider [phone] Encounter Details Date Type Department Care Team (Late st Contact Info) Description 10/12/2022 Outside Procedure External Location [address] [place] [address] James Cowart MD [address] [place] [address] Social History Tobacco Use Types [...] AM EST Narrative 10/12/2022 8:21 [place] [address] Name: LETICIA PENNINGTON Exam Date: 10/12/2022 : 2000 Age 22 Gender: F Physician: JAMES COWART Facility: [facility] Facility HSV: Outpatient Exam: HYSTEROSALPINGOGRAM FLUOROSCOPY TIME [...] Thank you for referring LETICIA PENNINGTON to [facility]. Legally authenticated by POPE ANA Baptiste 2022-10-12 08:09:41 Procedure Note Provider, Generic [place] - 10/12/2022 [place] [address] Name: LETICIA PENNINGTON Exam Date: 10/12/2022 : 2000 Age 22 Gender: F Physician: JAMES COWART Facility: [facility] Facility HSV: Outpatient Exam: HYSTEROSALPINGOGRAM FLUOROSCOPY TIME [...] Thank you for referring LETICIA PENNINGTON to [facility]. Legally authenticated by POPE ANA Baptiste 2022-10-12 08:09:41 James Cowart MD IMG FLUOROSCOPY PROCEDURES Gayle l Result documented in this encounter Visit Diagnoses Not on filedocumented in this encounter Care Teams Manager Contact Relationship Specialty Start Date End Date None, None [address] [place] [address] PCP - General NONE FOUND 09/05/22 05/23/24 Stephanie Allen PA [address] [place] [address] PCP - General 08/30/24 documented as of this encounter
[2025-05-08 15:48] VITALS: BMI 56.9
[2025-05-08 16:08] VITALS: BP 105/50; PULSE 109; RESP 17; TEMP 36.8; O2SAT 94; BMI 57.2
[2025-05-08 16:16] LABS: Microscopic, Urine URINE MICROSCOPIC (MICROSCOPIC)
[2025-05-08 16:18] LABS: Bilirubin,Urine Negative (Negative); Color,Urine YELLOW (Yellow); Glucose,Urine (UA) Negative (Negative); Ketones,Urine Negative (Negative); Leukocyte Esterase,Urine TRACE (Negative); PH,Urine 6.5 (5.0-8.5); Protein,Urine Negative (Negative); Specific Gravity, Urine <= 1.005 (1.005-1.030); Urobilinogen,Urine 0.2 EU/dl (0.2)
[2025-05-08 16:38] LABS: Fetal Membrane Rupture (Rapid) Negative (Negative)
[2025-05-08 16:43] LABS: Bacteria,Urine 1+ /lpf
[2025-05-08] MEDS: ONDANSETRON 4MG ODT 4 MG SL (17:17)
== END 2025-05-08 18:07 | disposition home or self-care (01) ==
LOC: OBOUT 15:41 → OB 15:41
PROVIDERS: Visit Provider Obstetrics & Gynecology
DX: Z34.83 Encounter for supervision of other normal pregnancy, third trimester (principal); Z3A.35 35 weeks gestation of pregnancy
CPT/HCPCS: 59025; 81001; 84112; 87086; 99212; G0463; Q0162

== ENCOUNTER 2025-05-10 21:17 | Outpatient (CLI) | payer BC, SELFPAY ==
--- OUTSIDE RECORDS SUMMARY | 2025-05-10 21:21 | XMS_ITS | Clinical Summary ---
Author Organization [employer] ([place], [place], [place], [place]) Address [address] [place] [address] Care Team Providers Care Acute Coordinator Name Role Phone Stephanie Allen PA-C Primary Care Provider [phone] Allergies Active Allergy Reactions Criticality Noted Date [...] Date Deyvi rded Speak language other than Tuvaluan at home Not on file 09/01/2024 Want help with school or training Not on file 09/01/2024 Substance Use Answer Date Recorded Used prescription meds for non-medical reasons N ot on file 09/01/2024 Used illegal drugs past 12 months Not on file 09/01/2024 Comments No Sex and Gender Information Value Date Recorded Sex Assigned at Not on file 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
--- OUTSIDE RECORDS SUMMARY | 2025-05-10 21:21 | XMS_ITS | Clinical Summary ---
Author Organization Healthcare Address [address] [place] [address] Care Team Providers Care Hydroponics Worker Name Role Phone Stephanie Allen Primary Care Provider [phone] Allergies Active Allergy Reactions Criticality Noted Date [...] Team Description 02/21/2025 Telephone Obstetrics & Gynecology [facility] [place] [address] James Cowart MD from Last [...] 19+ 3-dose series) 2017 [facility]-Pap Smear 2019 [id number]-34 Vaccine ( - season) 2024 [facility]-Influenza Vaccine [...] Reactive Non Reactive 11/01/2024 1:54 PM EST [facility] Comment:Screening for HIV 1 & 2 antibodies, and P24 antigen is NONREACTIVE. No confirmatory testing is required. Blood Venous blood specimen / Unknown Venipuncture / Unknown 11/01/2024 10:24 AM EST 11/01/2024 12:52 PM EST Result Santino Cowart MD LAB BLOOD ORDERABLES Final Resu lt Performing Organization Address City/[facility]/ZIP Co de Phone Number [facility] [address] [place] [address] * Hepatitis C Antibody w/Reflex to HCV Quant PCR (11/01/2024 10:24 AM EST) Hepatitis C Antibody Negative Negative 11/01/2024 1:31 PM EST [facility] Blood Venous blood specimen / Unknown Venipuncture / Unknown 11/01/2024 10:24 AM EST 11/01/2024 12:52 PM EST Result Santino Cowart MD LAB BLOOD ORDERABLES Final Resu lt Performing Organization Address City/[facility]/ZIP Co de Phone Number [facility] [address] [place] [address] from Last 3 Months or Most Recently Relevant to Health Maintenance Additional Health Concerns Active Problems Noted Date Diagnosed Date CPM S24 PP LABOR (OBSTETRICS) 11/19/2024 Insurance [place] Care Teams Hydroponics Worker Relationship Specialty Start Date End Date Stephanie Allen PA [address] [place] [address] PCP - General 08/30/24
--- OUTSIDE RECORDS SUMMARY | 2025-05-10 21:21 | XMS_ITS | Data Portability ---
Author Organization [facility] & [place] AD[place] Address [address] [place] [id number] Care Team Providers Care Turn Out Name Role Phone UNRULY ROSEN Primary Care Provider [phone] TRAMAINE WINKLER Primary Care Provider Assessment No assessment recorded. Plan of Treatment Reminders Order Date Submit Date Provider Last Modified By Organization Details Last Modified Time Details Appointments None recorded. Lab CBC w/ auto diff 2022 023 [email or web address] 6 [facility], [address] [place], [address], 3 08:47:10 ferritin, serum or plasma 2022 023 [email or web address] 6 [facility], [address] [place], [address], 3 08:47:10 iron + total iron-bindin g capacity (TIBC), serum 2022 023 [email or web address] 6 [facility], [address] [place], [address], 3 08:47:10 CMP, serum or plasma 2022 023 [email or web address] 6 [facility], [address] [place], [address], 3 08:47:10 CBC w/ auto diff 2022 023 MIESHA [facility], [address], [address], [place], [address], 3 07:14:24 vitamin D, 25-hydroxy, total, serum 2022 023 MIESHA [facility], [address], [address], [place], [address], 3 07:14:27 vitamin B12 + folate, serum or blood 2022 023 MIESHA [facility], [address], [address], [place], [address], 3 07:14:26 magnesium, serum or plasma 2022 023 MIESHA [facility], [address], [address], [place], [address], 3 07:14:28 TSH + free T4, serum 2022 023 MIESHA [facility], [address], [address], [place], [address], 3 07:14:23 CMP, serum or plasma 2022 023 MIESHA [facility], [address], [address], [place], [address], 3 07:14:25 iron + TIBC + ferritin, serum 2022 023 MIESHA [facility], [address], [address], [place], [address], 3 07:14:21 iron + TIBC + ferritin, serum 2022 023 MIESHA [facility], [address], [address], [place], [address], 3 08:21:13 CBC w/ auto diff 2022 023 RODEO [facility], [address], [facility] [address], [place], [address], 3 08:21:13 CMP, serum or plasma 2022 023 RODEO [facility], [address], [facility] [address], [place], [address], 3 08:21:15 Referral behavioral health referral 2022 023 [email or web address] 3 [facility], [facility], [address], [place], [address], 3 08:01:02 Procedures None recorded. Surgeries None recorded. Imaging None recorded. Medication Orders Vitamin D3 125 mcg (5,000 unit) tablet 2022 023 [facility], [address] [place] [address], [id number], 3 16:18:04 duloxetine 60 mg capsule,del ayed release 2022 023 2 [facility], [address] [place] [address], [id number], 3 14:25:59 Wegovy 0.25 mg/0.5 mL subcutaneou s pen injector 2022 023 [email or web address] 9 [facility], [address] [place], [address], 3 08:44:47 Flonase Allergy Relief 50 mcg/actuati on nasal spray,suspe nsion 2022 023 [email or web address] 2 [facility], [address] [place], [address], 3 16:23:10 Zyrtec 10 mg tablet 2022 023 [email or web address] [id number] 9 [facility], [address] [place], [address], 3 08:44:34 Wellbutrin SR 150 mg tablet, 12 hr sustained-r elease [address] [facility], [address] [place], [address], 3 08:44:29 Seroquel 100 mg tablet 2022 023 [email or web address] [id number] 9 [facility], [address] [place], [address], 3 08:44:54 Patient TargetsNo targets recorded. Patient [...] 250-45 0 Not Available [facility] ([facility]) [address] [place], [address], 07/19/2023 08:21:12 07/18/20 23 07/19/2023 FE+TI BC+FE R UIBC 396 ug/dL 131-42 5 Not Available [facility] ([facility]) [address] [place], [address], 07/19/2023 08:21:12 07/18/20 23 07/19/2023 FE+TI BC+FE R iron 31 ug/dL 27-159 Not Available [facility] ([facility]) [address] [place], [address], 07/19/2023 08:21:12 07/18/20 23 07/19/2023 FE+TI BC+FE R iron saturation 7 % 15-55 alert low Not Available [facility] ([facility]) [address] [place], [address], 07/19/2023 08:21:12 07/18/20 23 07/19/2023 FE+TI BC+FE R ferritin 61 NG/mL 15-150 Not Available [facility] ([facility]) [address] [place], [address], 07/19/2023 08:21:12 07/18/20 23 07/19/2023 CBC WITH DIFFE RENTI AL/PL ATELE T WBC 9.7 x10e3 /uL 3.4-10 .8 Not Available [facility] ([facility]) [address] [place], [address], 07/19/2023 08:21:13 07/18/20 23 07/19/2023 CBC WITH DIFFE RENTI AL/PL ATELE T RBC 4.95 x10e6 /uL 3.77-5 .28 Not Available [facility] ([facility]) [address] [place], [address], 07/19/2023 08:21:13 07/18/2007/19/2023 CBC WITH DIFFE RENTI AL/PL ATELE T hemoglobin 13.1 g/dL 11.1-1 5.9 Not Available [facility] ([facility]) [address] [place], [address], 07/19/2023 08:21:13 07/18/20 23 07/19/2023 CBC WITH DIFFE RENTI AL/PL ATELE T hematocrit 40.6 % 34.0-4 6.6 Not Available [facility] ([facility]) [address] [place], [address], 07/19/2023 08:21:13 07/18/20 23 07/19/2023 CBC WITH DIFFE RENTI AL/PL ATELE T MCV 82 fL 79-97 Not Available [facility] ([facility]) [address] [facility], [place], [address], 07/19/2023 08:21:13 07/18/20 23 07/19/2023 CBC WITH DIFFE RENTI AL/PL ATELE T MCH 26.5 pg 26.6-3 3.0 below low normal Not Available [facility] ([facility]) [address] [facility], [place], [address], 07/19/2023 08:21:13 07/18/20 23 07/19/2023 CBC WITH DIFFE RENTI AL/PL ATELE T MCHC 32.3 g/dL 31.5-3 5.7 Not Available [facility] ([facility]) [address] [facility], [place], [address], 07/19/2023 08:21:13 07/18/20 23 07/19/2023 CBC WITH DIFFE RENTI AL/PL ATELE T RDW 13.1 % 11.7-1 5.4 Not Available [facility] ([facility]) [address] [facility], [place], [address], 07/19/2023 08:21:13 07/18/20 23 07/19/2023 CBC WITH DIFFE RENTI AL/PL ATELE T platelets 287 x10e3 /uL 150-45 0 Not Available [facility] ([facility]) [address] [place], [address], 07/19/2023 08:21:13 07/18/20 23 07/19/2023 CBC WITH DIFFE RENTI AL/PL ATELE T neutrophils 65 % not estab. Not Available [facility] ([facility]) [address] [place], [address], 07/19/2023 08:21:13 07/18/20 23 07/19/2023 CBC WITH DIFFE RENTI AL/PL ATELE T lymphs 24 % not estab. Not Available [facility] ([facility]) [address] [facility], [place], [address], 07/19/2023 08:21:13 07/18/20 23 07/19/2023 CBC WITH DIFFE RENTI AL/PL ATELE T monocytes 7 % not estab. Not Available [facility] ([facility]) [address] [facility], [place], [address], 07/19/2023 08:21:13 07/18/20 23 07/19/2023 CBC WITH DIFFE RENTI AL/PL ATELE T eos 3 % not estab. Not Available [facility] ([facility]) [address] [facility], [place], [address], 07/19/2023 08:21:13 07/18/20 23 07/19/2023 CBC WITH DIFFE RENTI AL/PL ATELE T basos 0 % not estab. Not Available [facility] ([facility]) [address] [place], [address], 07/19/2023 08:21:13 07/18/20 23 07/19/2023 CBC WITH DIFFE RENTI AL/PL ATELE T immature cells POLISHER EYEGLASS FRAMES Not Available [facility] ([facility]) [address] [place], [address], 07/19/2023 08:21:13 07/18/20 23 07/19/2023 CBC WITH DIFFE RENTI AL/PL ATELE T neutrophils (absolute) 6.4 x10e3 /uL 1.4-7. 0 Not Available [facility] ([facility]) [address] [place], [address], 07/19/2023 08:21:13 07/18/20 23 07/19/2023 CBC WITH DIFFE RENTI AL/PL ATELE T lymphs (absolute) 2.3 x10e3 /uL 0.7-3. 1 Not Available [facility] ([facility]) [address] [facility], [place], [address], 07/19/2023 08:21:13 07/18/20 23 07/19/2023 CBC WITH DIFFE RENTI AL/PL ATELE T monocytes(ab solute) 0.6 x10e3 /uL 0.1-0. 9 Not Available [facility] ([facility]) [address] [facility], [place], [address], 07/19/2023 08:21:13 07/18/20 23 07/19/2023 CBC WITH DIFFE RENTI AL/PL ATELE T eos (absolute) 0.3 x10e3 /uL 0.0-0. 4 Not Available [facility] ([facility]) [address] [facility], [place], [address], 07/19/2023 08:21:13 07/18/20 23 07/19/2023 CBC WITH DIFFE RENTI AL/PL ATELE T baso (absolute) 0.0 x10e3 /uL 0.0-0. 2 Not Available [facility] ([facility]) [address] [facility], [place], [address], 07/19/2023 08:21:13 07/18/20 23 07/19/2023 CBC WITH DIFFE RENTI AL/PL ATELE T immature granulocytes 1 % not estab. Not Available [facility] ([facility]) [address] [facility], [place], [address], 07/19/2023 08:21:13 07/18/20 23 07/19/2023 CBC WITH DIFFE RENTI AL/PL ATELE T immature grans (abs) 0.1 x10e3 /uL 0.0-0. 1 Not Available [facility] ([facility]) [address] [facility], [place], [address], 07/19/2023 08:21:13 07/18/20 23 07/19/2023 CBC WITH DIFFE RENTI AL/PL ATELE T NRBC POL[employer] EYEGLASS FRAMES Not Available [facility] ([facility]) [address] [facility], [place], [address], 07/19/2023 08:21:13 07/18/20 23 07/19/2023 CBC WITH DIFFE RENTI AL/PL ATELE T hematology comments: POLISHER EYEGLASS FRAMES Not Available [facility] ([facility]) [address] [facility], [place], [address], 07/19/2023 08:21:13 07/18/20 23 07/19/2023 COMP. METAB OLIC PANEL (14) glucose 93 mg/dL 70-99 Not Available [facility] ([facility]) [address] [facility], [place], [address], 07/19/2023 08:21:15 07/18/20 23 07/19/2023 COMP. METAB OLIC PANEL (14) BUN 14 mg/dL 6-20 Not Available [facility] ([facility]) [address] [place], [address], 07/19/2023 08:21:15 07/18/20 23 07/19/2023 COMP. METAB OLIC PANEL (14) creatinine 0.77 mg/dL 0.57-1 .00 Not Available [facility] ([facility]) [address] [facility], [place], [address], 07/19/2023 08:21:15 07/18/20 23 07/19/2023 COMP. METAB OLIC PANEL (14) eGFR 110 mL/mi n/1.7 3 >59 Not Available [facility] ([facility]) [address] [place], [address], 07/19/2023 08:21:15 07/18/20 23 07/19/2023 COMP. METAB OLIC PANEL (14) BUN/creatini ne ratio 18 9-23 Not Available [facility] ([facility]) [address] [facility] [place], [address], 07/19/2023 08:21:15 07/18/20 23 07/19/2023 COMP. METAB OLIC PANEL (14) sodium 141 mmol/ L 134-14 4 Not Available [facility] ([facility]) [address] [place], [address], 07/19/2023 08:21:15 07/18/20 23 07/19/2023 COMP. METAB OLIC PANEL (14) potassium 4.1 mmol/ L 3.5-5. 2 Not Available [facility] ([facility]) [address] [facility] [place], [address], 07/19/2023 08:21:15 07/18/20 23 07/19/2023 COMP. METAB OLIC PANEL (14) chloride 104 mmol/ L 96-106 Not Available [facility] ([facility]) [address] [facility] [place], [address], 07/19/2023 08:21:15 07/18/20 23 07/19/2023 COMP. METAB OLIC PANEL (14) carbon dioxide, total 21 mmol/ L 20-29 Not Available [facility] ([facility]) [address] [facility] [place], [address], 07/19/2023 08:21:15 07/18/20 23 07/19/2023 COMP. METAB OLIC PANEL (14) calcium 9.4 mg/dL 8.7-10 .2 Not Available [facility] ([facility]) [address] [facility] [place], [address], 07/19/2023 08:21:15 07/18/20 23 07/19/2023 COMP. METAB OLIC PANEL (14) protein, total 7.2 g/dL 6.0-8. 5 Not Available [facility] ([facility]) [address] [facility] [place], [address], 07/19/2023 08:21:15 07/18/20 23 07/19/2023 COMP. METAB OLIC PANEL (14) albumin 4.3 g/dL 4.0-5. 0 Not Available [facility] ([facility]) [address] [facility], [place], [address], 07/19/2023 08:21:15 07/18/20 23 07/19/2023 COMP. METAB OLIC PANEL (14) globulin, total 2.9 g/dL 1.5-4. 5 Not Available [facility] ([facility]) [address] [facility], [place], [address], 07/19/2023 08:21:15 07/18/20 23 07/19/2023 COMP. METAB OLIC PANEL (14) A/G ratio 1.5 1.2-2. 2 Not Available [facility] ([facility]) [address] [facility], [place], [address], 07/19/2023 08:21:15 07/18/20 23 07/19/2023 COMP. METAB OLIC PANEL (14) bilirubin, total 0.2 mg/dL 0.0-1. 2 Not Available [facility] ([facility]) [address] [facility], [place], [address], 07/19/2023 08:21:15 07/18/20 23 07/19/2023 COMP. METAB OLIC PANEL (14) alkaline phosphatase 80 IU/L 44-121 Not Available [facility] ([facility]) [address] [facility], [place], [address], 07/19/2023 08:21:15 07/18/20 23 07/19/2023 COMP. METAB OLIC PANEL (14) AST (SGOT) 14 IU/L 0-40 Not Available [facility] ([facility]) [address] [place], [address], 07/19/2023 08:21:15 07/18/20 23 07/19/2023 COMP. METAB OLIC PANEL (14) ALT (SGPT) 10 IU/L 0-32 Not Available [facility] ([facility]) [address] [place], [address], 07/19/2023 08:21:15 08/08/2008/09/2023 FE+TI BC+FE R iron bind.cap.(TI BC) 369 ug/dL 250-45 0 Not Available [facility] ([facility]) [address] [place], [address], 08/09/2023 07:14:21 08/08/2008/09/2023 FE+TI BC+FE R UIBC 334 ug/dL 131-42 5 Not Available [facility] ([facility]) [address] [place], [address], 08/09/2023 07:14:21 08/08/2008/09/2023 FE+TI BC+FE R iron 35 ug/dL 27-159 Not Available [facility] ([facility]) [address] [place], [address], 08/09/2023 07:14:21 08/08/2008/09/2023 FE+TI BC+FE R iron saturation 9 % 15-55 alert low Not Available [facility] ([facility]) [address] [place], [address], 08/09/2023 07:14:21 08/08/2008/09/2023 FE+TI BC+FE R ferritin 53 NG/mL 15-150 Not Available [facility] ([facility]) [address] [place], [address], 08/09/2023 07:14:21 08/08/2008/09/2023 TSH+F REE T4 TSH 0.925 uIU/m L 0.450- 4.500 Not Available [facility] ([facility]) [address] [place], [address], 08/09/2023 07:14:22 08/08/2008/09/2023 TSH+F REE T4 T4,free(dire ct) 0.96 NG/dL 0.82-1 .77 Not Available [facility] ([facility]) [address] [facility], [place], [address], 08/09/2023 07:14:22 08/08/2008/09/2023 CBC WITH DIFFE RENTI AL/PL ATELE T WBC 7.7 x10e3 /uL 3.4-10 .8 Not Available [facility] ([facility]) [address] [place], [address], 08/09/2023 07:14:24 08/08/2008/09/2023 CBC WITH DIFFE RENTI AL/PL ATELE T RBC 4.90 x10e6 /uL 3.77-5 .28 Not Available [facility] ([facility]) [address] [facility], [place], [address], 08/09/2023 07:14:24 08/08/2008/09/2023 CBC WITH DIFFE RENTI AL/PL ATELE T hemoglobin 13.2 g/dL 11.1-1 5.9 Not Available [facility] ([facility]) [address] [place], [address], 08/09/2023 07:14:24 08/08/2008/09/2023 CBC WITH DIFFE RENTI AL/PL ATELE T hematocrit 40.4 % 34.0-4 6.6 Not Available [facility] ([facility]) [address] [place], [address], 08/09/2023 07:14:24 08/08/2008/09/2023 CBC WITH DIFFE RENTI AL/PL ATELE T MCV 82 fL 79-97 Not Available [facility] ([facility]) [address] [facility], [place], [address], 08/09/2023 07:14:24 08/08/2008/09/2023 CBC WITH DIFFE RENTI AL/PL ATELE T MCH 26.9 pg 26.6-3 3.0 Not Available [facility] ([facility]) [address] [facility], [place], [address], 08/09/2023 07:14:24 08/08/2008/09/2023 CBC WITH DIFFE RENTI AL/PL ATELE T MCHC 32.7 g/dL 31.5-3 5.7 Not Available [facility] ([facility]) [address] [facility], [place], [address], 08/09/2023 07:14:24 08/08/2008/09/2023 CBC WITH DIFFE RENTI AL/PL ATELE T RDW 13.3 % 11.7-1 5.4 Not Available [facility] ([facility]) [address] [facility], [place], [address], 08/09/2023 07:14:24 08/08/2008/09/2023 CBC WITH DIFFE RENTI AL/PL ATELE T platelets 298 x10e3 /uL 150-45 0 Not Available [facility] ([facility]) [address] [facility], [place], [address], 08/09/2023 07:14:24 08/08/2008/09/2023 CBC WITH DIFFE RENTI AL/PL ATELE T neutrophils 68 % not estab. Not Available [facility] ([facility]) [address] [facility], [place], [address], 08/09/2023 07:14:24 08/08/2008/09/2023 CBC WITH DIFFE RENTI AL/PL ATELE T lymphs 23 % not estab. Not Available [facility] ([facility]) [address] [facility], [place], [address], 08/09/2023 07:14:24 08/08/2008/09/2023 CBC WITH DIFFE RENTI AL/PL ATELE T monocytes 6 % not estab. Not Available [facility] ([facility]) [address] [facility], [place], [address], 08/09/2023 07:14:24 08/08/2008/09/2023 CBC WITH DIFFE RENTI AL/PL ATELE T eos 3 % not estab. Not Available [facility] ([facility]) [address] [facility], [place], [address], 08/09/2023 07:14:24 08/08/2008/09/2023 CBC WITH DIFFE RENTI AL/PL ATELE T basos 0 % not estab. Not Available [facility] ([facility]) [address] [facility], [place], [address], 08/09/2023 07:14:24 08/08/2008/09/2023 CBC WITH DIFFE RENTI AL/PL ATELE T immature cells [employer] EYEGLASS FRAMES Not Available [facility] ([facility]) [address] [facility], [place], [address], 08/09/2023 07:14:24 08/08/2008/09/2023 CBC WITH DIFFE RENTI AL/PL ATELE T neutrophils (absolute) 5.2 x10e3 /uL 1.4-7. 0 Not Available [facility] ([facility]) [address] [facility], [place], [address], 08/09/2023 07:14:24 08/08/2008/09/2023 CBC WITH DIFFE RENTI AL/PL ATELE T lymphs (absolute) 1.8 x10e3 /uL 0.7-3. 1 Not Available [facility] ([facility]) [address] [place], [address], 08/09/2023 07:14:24 08/08/20 23 08/09/2023 CBC WITH DIFFE RENTI AL/PL ATELE T monocytes(ab solute) 0.5 x10e3 /uL 0.1-0. 9 Not Available [facility] ([facility]) [address] [facility], [place], [address], 08/09/2023 07:14:24 08/08/2008/09/2023 CBC WITH DIFFE RENTI AL/PL ATELE T eos (absolute) 0.2 x10e3 /uL 0.0-0. 4 Not Available [facility] ([facility]) [address] [facility], [place], [address], 08/09/2023 07:14:24 08/08/2008/09/2023 CBC WITH DIFFE RENTI AL/PL ATELE T baso (absolute) 0.0 x10e3 /uL 0.0-0. 2 Not Available [facility] ([facility]) [address] [facility], [place], [address], 08/09/2023 07:14:24 08/08/2008/09/2023 CBC WITH DIFFE RENTI AL/PL ATELE T immature granulocytes 0 % not estab. Not Available [facility] ([facility]) [address] [facility], [place], [address], 08/09/2023 07:14:24 08/08/2008/09/2023 CBC WITH DIFFE RENTI AL/PL ATELE T immature grans (abs) 0.0 x10e3 /uL 0.0-0. 1 Not Available [facility] ([facility]) [address] [facility], [place], [address], 08/09/2023 07:14:24 08/08/2008/09/2023 CBC WITH DIFFE RENTI AL/PL ATELE T NRBC POL[employer] EYEGLASS FRAMES Not Available [facility] ([facility]) [address] [place], [address], 08/09/2023 07:14:24 08/08/20 23 08/09/2023 CBC WITH DIFFE RENTI AL/PL LATONYALE T hematology comments: POLISHER EYEGLASS FRAMES Not Available [facility] ([facility]) [address] [facility], [place], [address], 08/09/2023 07:14:24 08/08/20 23 08/09/2023 COMP. METAB OLIC PANEL (14) glucose 99 mg/dL 70-99 Not Available [facility] ([facility]) [address] [facility], [place], [address], 08/09/2023 07:14:25 08/08/2008/09/2023 COMP. METAB OLIC PANEL (14) BUN 17 mg/dL 6-20 Not Available [facility] ([facility]) [address] [facility], [place], [address], 08/09/2023 07:14:25 08/08/20 23 08/09/2023 COMP. METAB OLIC PANEL (14) creatinine 0.83 mg/dL 0.57-1 .00 Not Available [facility] ([facility]) [address] [facility], [place], [address], 08/09/2023 07:14:25 08/08/20 23 08/09/2023 COMP. METAB OLIC PANEL (14) eGFR 100 mL/mi n/1.7 3 >59 Not Available [facility] ([facility]) [address] [facility], [place], [address], 08/09/2023 07:14:25 08/08/20 23 08/09/2023 COMP. METAB OLIC PANEL (14) BUN/creatini ne ratio 20 - Not Available [facility] ([facility]) [address] [place], [address], 08/09/2023 07:14:25 08/08/20 23 08/09/2023 COMP. METAB OLIC PANEL (14) sodium 144 mmol/ L 134-14 4 Not Available [facility] ([facility]) [address] [facility] [place], [address], 08/09/2023 07:14:25 08/08/20 23 08/09/2023 COMP. METAB OLIC PANEL (14) potassium 4.4 mmol/ L 3.5-5. 2 Not Available [facility] ([facility]) [address] [facility] [place], [address], 08/09/2023 07:14:25 08/08/20 23 08/09/2023 COMP. METAB OLIC PANEL (14) chloride 105 mmol/ L 96-106 Not Available [facility] ([facility]) [address] [facility] [place], [address], 08/09/2023 07:14:25 08/08/20 23 08/09/2023 COMP. METAB OLIC PANEL (14) carbon dioxide, total 22 mmol/ L 20-29 Not Available [facility] ([facility]) [address] [facility] [place], [address], 08/09/2023 07:14:25 08/08/2008/09/2023 COMP. METAB OLIC PANEL (14) calcium 9.2 mg/dL 8.7-10 .2 Not Available [facility] ([facility]) [address] [place], [address], 08/09/2023 07:14:25 08/08/2008/09/2023 COMP. METAB OLIC PANEL (14) protein, total 6.9 g/dL 6.0-8. 5 Not Available [facility] ([facility]) [address] [place], [address], 08/09/2023 07:14:25 08/08/20 23 08/09/2023 COMP. METAB OLIC PANEL (14) albumin 4.3 g/dL 4.0-5. 0 Not Available [facility] ([facility]) [address] [place], [address], 08/09/2023 07:14:25 08/08/20 23 08/09/2023 COMP. METAB OLIC PANEL (14) globulin, total 2.6 g/dL 1.5-4. 5 Not Available [facility] ([facility]) [address] [facility], [place], [address], 08/09/2023 07:14:25 08/08/20 23 08/09/2023 COMP. METAB OLIC PANEL (14) A/G ratio 1.7 1.2-2. 2 Not Available [facility] ([facility]) [address] [facility], [place], [address], 08/09/2023 07:14:25 08/08/20 23 08/09/2023 COMP. METAB OLIC PANEL (14) bilirubin, total <0.2 mg/dL 0.0-1. 2 Not Available [facility] ([facility]) [address] [facility], [place], [address], 08/09/2023 07:14:25 08/08/20 23 08/09/2023 COMP. METAB OLIC PANEL (14) alkaline phosphatase 80 IU/L 44-121 Not Available [facility] ([facility]) [address] [facility], [place], [address], 08/09/2023 07:14:25 08/08/20 23 08/09/2023 COMP. METAB OLIC PANEL (14) AST (SGOT) 13 IU/L 0-40 Not Available [facility] ([facility]) [address] [facility], [place], [address], 08/09/2023 07:14:25 08/08/20 23 08/09/2023 COMP. METAB OLIC PANEL (14) ALT (SGPT) 14 IU/L 0-32 Not Available [facility] ([facility]) [address] [facility], [place], [address], 08/09/2023 07:14:25 08/08/20 23 08/09/2023 VITAM IN B12 AND FOLAT E vitamin B12 437 pg/mL 232-12 45 Not Available [facility] ([facility]) [address] [facility], [place], [address], 08/09/2023 07:14:26 08/08/20 23 08/09/2023 VITAM IN B12 AND FOLAT E folate (folic acid), serum 13.0 NG/mL >3.0 A serum folat e sandra ntrat ion of less than 3.1 ng/mL is consi dered to repre sent clini gisell defic iency . Not Available [facility] ([facility]) [address] [facility], [place], [address], 08/09/2023 07:14:26 08/08/20 23 08/09/2023 VITAM IN [...] and D. Alicia avalos [place]: [facility] . 2. Aiden rivera MF, Farrah dixon [place], Hillary off-F errjaelyn i NUÑEZ, et al. Evalu ation , treat ment, and preve ntion of vitam in D defic iency : an Endoc rine Socie ty clini gisell pract ice guide line. JCEM. 2010; 96(7) :1911 -30. Not Available [facility] ([facility]) [address] [facility], [place], [address], 08/09/2023 07:14:27 08/08/20 23 08/09/2023 MAGNE SIUM magnesium 1.9 mg/dL 1.6-2. 3 Not Available [facility] ([facility]) [address] [facility], [place], [address], 08/09/2023 07:14:28 05/26/20 23 05/26/2023 PAP nap (PROC ) No observ ation record ed. [email or web address] Not Available 2022 09:46:47 Result Notes None recorded. Procedures Surgical History Date Name Laterality Status Provider Name and Address Organization Details Recorded Time 03/18/2020 Date of Last Pap Smear completed MARGARETBart MELTON [facility] [place] 04/05/2023 13:05:37 10/30/2011 Tonsillecto my/Adenoide ctomy completed [facility] JONES MELTON [facility] [place] 04/05/2023 13:05:37 Imaging Results None [...] propionate 50 mcg/actuati on nasal spray,suspe nsion [place] 1 spray every day by intranasa l [...] Updated DateTime 3 157.48 cm 50.1 kg/m2 636326. 31 g 97.7 [degF] 98 % 98 % 105 /min 92/66 mm[Hg] MARGARET MELTON [facility] [place] 3 14:59:03 Date Recorded Body height Body mass index (BMI) Body weight Body temperature Oxygen saturation Oxygen saturation in Arterial blood by Pulse oximetry Heart rate Systolic And Diastolic Provider Name and Address Organization Details Last Updated DateTime 3 157.48 cm 47.6 kg/m2 403964. 42 g 98.2 [degF] 99 % 99 % 103 /min 124/86 mm[Hg] MARGARET MELTON [facility] [place] 3 15:58:53 Date Recorded Body height Body weight Body mass index (BMI) Body temperature Oxygen saturation Oxygen saturation in Arterial blood by Pulse oximetry Heart rate Systolic And Diastolic Provider Name and Address Organization Details Last Updated DateTime 3 157.48 cm 512103. 72 g 49.9 kg/m2 97.7 [degF] 100 % 100 % 128 /min 100/76 mm[Hg] MARGARET MELTON [facility] [place] 3 10:09:53 Date Recorded Body height Body mass index (BMI) Body weight Body temperature Oxygen saturation Oxygen saturation in Arterial blood by Pulse oximetry Heart rate Systolic And Diastolic Provider Name and Address Organization Details Last Updated DateTime 3 157.48 cm 51.9 kg/m2 481853. 87 g 98 [degF] 98 % 98 % 91 /min 127/74 mm[Hg] Agnes MELTON [facility] [place] 3 08:43:53 Date Recorded Body height Body mass index (BMI) Body weight Body temperature Oxygen saturation Oxygen saturation in Arterial blood by Pulse oximetry Heart rate Systolic And Diastolic Provider Name and Address Organization Details Last Updated DateTime 157.48 cm 51 kg/m2 456508. 27 g 97.5 [degF] 99 % 99 % 129 /min 124/90 mm[Hg] Dheeraj MULTANI [facility] & [place] 15:59:39 Social History Question Answer Notes LastModified by [employer] Details LastModified Time Tobacco Smoking Status Former Smoker [facility]ARGARET hassan, [facility] [place] 04/05/2023 13:05:37 Do You Have [...] Functional Status Question Answer Note LastModified by [employer] Details LastModified Time Do you use any illicit or recreational drugs? Yes Information not available 04/05/2023 Do you or have you ever used any other forms of tobacco or nicotine? Yes [email or web address] Information not available 06/02/2023 What is your level of alcohol consumption? Occasional Information not available 04/05/2023 Do you or have you ever used smokeless tobacco? 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 Current user of electronic cigarettes [email or web address] Information not available 06/02/2023 What is your exercise level? Moderate Information not available 04/05/2023 Mental Status Question Answer Note LastModified by Organization D etails LastModified Time Do you feel stressed (tense, restless, nervous, or anxious, or unable to sleep at night)? [id number] Information not available 04/05/2023 Family History Relationship [...] SNOMED-CT Code Diagnosis ICD10 Code Diagnosis Note [id number] Unruly Bustillo in, BRANCH RENTAL MANAGER [facility] [address] [facility] [address] [place] [address] 04/05/2023 13:02:12 04/05/2023 13:39:51 Adult health examination 619876561 Z00.00 Will check complete bloodwork. Will call with results.Co unseled on dietary modificati ons and healthy eating habits.Cou nseled on decreasing stress levels,Rec ommend yearly eye examsRecom mend regular dental exams/ashely rnings. Thyroid di sorder screening 729149302 Z13.29 Mixed anxi ety and depressive disorder 841604181 F41.8 Screening for malignant neoplasm of cervix 869387577 Z12.[address] James Cowart. History of ectopic pregnancie s. She is up to date on preventati ve screenings . Excessive daytime sleepiness with sleep paralysis 246897291 G47.53 Patient has a history of sleep paralysis. History of snoring. History of restless sleep patterns. Body mass index 40+ - severely obese 039991431 Z68.43 Patient is exercising . Patient is attempting to make dietary modificati ons. [id number] Unruly Bustillo in[address] [place] [address] 04/06/2023 08:02:02 04/06/2023 08:41:28 [id number] Tramaine Winkler MD [address] [place] [address] 04/26/2023 12:57:14 04/26/2023 13:15:14 Obstructive sleep apnea syndrome 54189014 G47.33 papnap...t itration to autopap 6-20 cm H2O. Obesity 482826715 E66.9 Patient aware that weight loss will improve not eliminate her need for auto PAP. [id number] Unruly Bustillo in[address] [place] [address] 06/02/2023 14:51:05 06/02/2023 15:15:39 Mixed anxiety and depressive disorder 699745455 F41.8 Patient is tolerating medication . Will refill.Danny l see back in 1 month.Will check vitamin levels, CBC, CMP, and iron panel at that time. [id number] Unruly Bustillo in[address] [place] [address] 07/18/2023 15:54:45 07/18/2023 16:18:02 Viral upper respiratory tract infection 773445186 J06.9 Humidifier at night.Use medication as directed.O TC meds for cough.Foll ow up if no improvemen t. Iron defic iency anemia 43741981 D50.9 Patient finished her Iron supplement s.Will check levels today. Will call with results. Body mass index 30+ - obesity 881416184 Z68.42 Will start Wegovy.Danny l see back in 1 month for weight check.Will increase as tolerated. [id number] [facility] [address] [place] [address] [address] [place] [address] 08/08/2023 09:58:51 08/08/2023 11:08:21 Tremor 06922077 R25.1 Will check lab work. Will call with results. Iron defic iency anemia 59685787 D50.9 Mixed anxi ety and depressive disorder 922679289 F41.8 Patient is reacting to the medication [...] do genetic testing at patient request today. [id number] [facility] [address] [facility] [address] [place] [address] 08/23/2023 15:37:17 08/23/2023 16:37:13 Mixed anxiety and depressive disorder 225177023 F41.8 Counseled in depth on symptoms of concern and when to go to ER. at chairside. Counseled on concerns and behavior changes and when to reach out for help. Support system is intact at home.Jose Luis knight on genetic testing results.Se e patient back in 1 month.Catrina ent is tolerating the Duloxetine 60mg. Vitamin D deficiency 347 55975 E55.9 [id number] Aden Petty MD [facility] [address] [facility] [address] [place] [address] 08/23/2023 08:31:40 08/23/2023 09:08:39 Iron deficiency anemia 60957669 D50.9 Labs on August 08, 2023 with magnesium at 1.9. Vitamin-D level low at 22.4. B12 437. Folic acid 13. Normal liver function testing. Normal renal function. Normal electrolyt es. White blood cell count 7.7. Red blood cell count 4.90 hemoglobin 13.2 and hematocrit 40.4. MCV 82. Platelet count 039064. Normal cell differenti al. TSH 0.9. T4 [...] response to increasing PO supplement ation. Headache 39477233 R51.9 Concern for possible migraine. Will follow-up [...] ID Guarantor Name 10/01/2023 1 [place] [id number] A Leticia Wilkins [id number] Leticia Vo Notes Date Note Type Note Provider Name and Address Organization Details Recorded Time 06/02/2023 text/html patient presents to clinic for medication update. She was placed inpatient at [facility] and was treated by Dr. Rankin. She states her prozac was causing hallucinations. She was started on seroquel and wellbutrin. She is tolerating well. She states she feels so much better. She does not have a follow up scheduled with Dr. Rankin. Unruly Rosen, BRANCH RENTAL MANAGER [address], [place], [address], [facility] 06/02/2023 15:11:10 07/18/2023 text/html patient presents to clinic for follow up. She states she is tolerating her medication. No complaints. She reports some increased sinus drainage and her left ear is itchy. Denies any fever. Reports a dry cough. Denies any sore throat. Unruly Rosen APRN [address], [place], [address], [facility] & [place] 07/18/2023 16:25:02 08/08/2023 text/html patient presents to clinic for an intermittent tremor. She has been titrating the Seroquel over the last week since we spoke. She denies any syncopal episodes. Denies any chest pain. Denies any thoughts of self harm or homicidal thoughts. Denies any hallucinations today. Unruly Rosen APRN [address], [place], [address], [facility] & [place] 08/08/2023 14:26:50 08/23/2023 text/html patient presents to clinic for follow up. She is tolerating the Duloxetine. She denies suicidal or homicidal thoughts. She states that the tremor is completely gone. She states she sees hematology October 04. Unruly Rosen APRN [address], [place], [address], [facility] & [place] 08/23/2023 16:18:32 08/23/2023 text/html 25 [...] and hematocrit 40.4. MCV 82. Platelet count 062153. Normal cell differential. TSH 0.9. T4 0.96. [...] to increasing PO supplementation. Aden Petty MD [address], [place], [address], [place] - [facility] - [place] & [place] 08/23/2023 09:44:31 OBGyn Episode No OBEpisode recorded.
--- OUTSIDE RECORDS SUMMARY | 2025-05-10 21:21 | XMS_ITS | Referral Summary ---
Author Organization [employer] ([place], [place], [place], [place]) Address [address] [place] [address] Care Team Providers Care Foundation Drill Operator Helper Name Role Phone Stephanie Allen PA-C Primary Care Provider [phone] Allergies Active Allergy Reactions Criticality Noted Date [...] Date Deyvi rded Speak language other than Solomon Islander at home Not on file 09/01/2024 Want help with school or training Not on file 09/01/2024 Substance Use Answer Date Recorded Used prescription meds for non-medical reasons N ot on file 09/01/2024 Used illegal drugs past 12 months Not on file 09/01/2024 Comments No Sex and Gender Information Value Date Recorded Sex Assigned at Not on file 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
--- OUTSIDE RECORDS SUMMARY | 2025-05-10 21:21 | XMS_ITS | Encounter Summary ---
Author Organization Healthcare Address [address] [place] [address] Care Team Providers Care Surgery Assistant Name Role Phone None, None Primary Care Provider [phone] Stephanie Allen Primary Care Provider [phone] Encounter Details Date Type Department Care Team (Late st Contact Info) Description 10/12/2022 Outside Procedure External Location [address] [place] [address] James Cowart MD [address] [place] [address] Social History Tobacco Use Types [...] AM EST Narrative 10/12/2022 8:21 [place] [address] Name: LETICIA PENNINGTON Exam Date: 10/12/2022 : 2000 Age 22 Gender: F Physician: JAMES COWART Facility: [facility] Facility HSV: Outpatient Exam: HYSTEROSALPINGOGRAM FLUOROSCOPY TIME CLINICAL HISTORY: HSG, history of ectopic FINDINGS: 5 fluoroscopic spot films were obtained for HSG. There is free spillage of contrast into the peritoneal cavity bilaterally. IMPRESSION: Free spillage noted bilaterally. FLUOROSCOPY TIME: 0.5 minutes The films were reviewed, interpreted, and dictated by Dr. Ana Lopez Transcribed by oClt Sands PA-C Dictated By: ANA LOPEZ Transcribed By: Ana Lopez Transcribed On: 10/12/2022 8:09 AM Electronically signed by: ANA LOPEZ 10/12/2022 Thank you for referring LETICIA PENNINGTON to [facility]. Legally authenticated by POPE ANA Baptiste 2022-10-12 08:09:41 Procedure Note Provider, Generic [place] - 10/12/2022 [place] [address] Name: LETICIA PENNINGTON Exam Date: 10/12/2022 : 2000 Age 22 Gender: F Physician: JAMES COWART Facility: [facility] Facility HSV: Outpatient Exam: HYSTEROSALPINGOGRAM [...] Thank you for referring LETICIA PENNINGTON to [facility]. Legally authenticated by POPE ANA Baptiste 2022-10-12 08:09:41 James Cowart MD IMG FLUOROSCOPY PROCEDURES Gayle l Result documented in this encounter Visit Diagnoses Not on filedocumented in this encounter Care Teams Surgery Assistant Relationship Specialty Start Date End Date None, None [address] [place] [address] PCP - General NONE FOUND 09/05/22 05/23/24 Stephanie Allen PA [address] [place] [address] PCP - General 08/30/24 documented as of this encounter
[2025-05-10 21:22] VITALS: BMI 56.9
[2025-05-10 21:30] VITALS: BP 126/56; PULSE 98; RESP 17; TEMP 36.7; O2SAT 98; BMI 56.9
[2025-05-10 21:30] LABS: Microscopic, Urine URINE MICROSCOPIC (MICROSCOPIC)
[2025-05-10 21:32] LABS: Bilirubin,Urine Negative (Negative); Color,Urine YELLOW (Yellow); Glucose,Urine (UA) Negative (Negative); Ketones,Urine Negative (Negative); Leukocyte Esterase,Urine Negative (Negative); PH,Urine 6.5 (5.0-8.5); Protein,Urine Negative (Negative); Specific Gravity, Urine 1.025 (1.005-1.030); Urobilinogen,Urine 0.2 EU/dl (0.2)
[2025-05-10 21:43] LABS: Bacteria,Urine 1+ /lpf
[2025-05-10] MEDS: ACETAMINOPHEN 500MG TAB 1000 MG PO (22:23)
[2025-05-10] MEDS: PROMETHAZINE 25MG TABLET 25 MG PO (22:23)
== END 2025-05-11 01:55 | disposition home or self-care (01) ==
LOC: OBOUT 21:19 → OB 21:20
PROVIDERS: PCP Nurse Practitioner Family; Visit Provider Obstetrics & Gynecology
DX: Z34.83 Encounter for supervision of other normal pregnancy, third trimester (principal); Z3A.35 35 weeks gestation of pregnancy
CPT/HCPCS: 81001

== ENCOUNTER 2025-05-14 13:34 | Outpatient (CLI) | payer BC, SELFPAY ==
--- OUTSIDE RECORDS SUMMARY | 2025-05-14 13:41 | XMS_ITS | Clinical Summary ---
Author Organization [employer] ([place], [place], [place], [place]) Address [address] [place] [address] Care Team Providers Care Tier Lift Truck Operator Name Role Phone Stephanie Allen PA-C Primary Care Provider [phone] Allergies Active Allergy Reactions Criticality Noted Date [...] Date Deyvi rded Speak language other than Algerian at home Not on file 09/01/2024 Want help with school or training Not on file 09/01/2024 Substance Use Answer Date Recorded Used prescription meds for non-medical reasons N ot on file 09/01/2024 Used illegal drugs past 12 months Not on file 09/01/2024 Comments No Sex and Gender Information Value Date Recorded Sex Assigned at Not on file 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
--- OUTSIDE RECORDS SUMMARY | 2025-05-14 13:41 | XMS_ITS | Encounter Summary ---
Author Organization Healthcare Address [address] [place] [address] Care Team Providers Care Wood Stainer Name Role Phone None, None Primary Care Provider [phone] Stephanie Allen Primary Care Provider [phone] Encounter Details Date Type Department Care Team (Late st Contact Info) Description 10/12/2022 Outside Procedure External Location [address] [place] [address] James Cowart MD [address] [place] [address] Social History Tobacco Use Types [...] AM EST Narrative 10/12/2022 8:21 [place] [address] Name: LETICIA PENNINGTON Exam Date: 10/12/2022 : [...] Thank you for referring LETICIA PENNINGTON to [facility]. Legally authenticated by POPE ANA Baptiste 2022-10-12 08:09:41 Procedure Note Provider, Generic [place] - 10/12/2022 [place] [address] Name: LETICIA PENNINGTON Exam Date: 10/12/2022 : [...] on filedocumented in this encounter Care Teams Wood Stainer Relationship Specialty Start Date End Date None, None [address] [place] [address] PCP - General NONE FOUND 09/05/22 05/23/24 Stephanie Allen PA [address] [place] [address] PCP - General 08/30/24 documented as of this encounter
--- OUTSIDE RECORDS SUMMARY | 2025-05-14 13:41 | XMS_ITS | Data Portability ---
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 Plan of Treatment Reminders Order Date Submit Date Provider Last Modified By Organization Details Last Modified Time Details Appointments None recorded. Lab CBC w/ auto diff 2022 023 [email or web address] 6 [facility], [address] [place], [address], 3 08:47:10 ferritin, serum or plasma 2022 023 [email or web address] 6 [facility], [address] [place], [address], 3 08:47:10 iron + total iron-bindin g capacity (TIBC), serum 2022 023 [email or web address] 6 [facility], [address] [place], [address], 3 08:47:10 CMP, serum or plasma 2022 023 [email or web address] 6 [facility], [address] [place], [address], 3 08:47:10 CBC w/ auto diff 2022 023 MIESHA [facility], [address], [address], [place], [address], 3 07:14:24 vitamin D, 25-hydroxy, total, serum 2022 023 MIESHA [facility], [address], [address], [place], [address], 3 07:14:27 vitamin B12 + folate, serum or blood 2022 023 MIESHA [facility], [address], [address], [place], [address], 3 07:14:26 magnesium, serum or plasma 2022 023 IMESHA [facility], [address], [address], [place], [address], 3 07:14:28 TSH + free T4, serum 2022 023 MIESHA [facility], [address], [address], [place], [address], 3 07:14:23 CMP, serum or plasma 2022 023 MIESHA [facility], [address], [address], [place], [address], 3 07:14:25 iron + TIBC + ferritin, serum 2022 023 MIESHA [facility], [address], [address], [place], [address], 3 07:14:21 iron + TIBC + ferritin, serum 2022 023 MIESHA [facility], [address], [address], [place], [address], 3 08:21:13 CBC w/ auto diff 2022 023 [place] [facility], [address], [facility] [address], [place], [address], 3 08:21:13 CMP, serum or plasma 2022 023 [place] [facility], [address], [facility] [address], [place], [address], 3 08:21:15 Referral behavioral health referral 2022 023 [email or web address] 3 [facility], [facility], [address], [place], [address], 3 08:01:02 Procedures None recorded. Surgeries None recorded. Imaging None recorded. Medication Orders Vitamin D3 125 mcg (5,000 unit) tablet 2022 023 [facility], [address] [place] [address], [id number], 3 16:18:04 duloxetine 60 mg capsule,del ayed release 2022 023 [email or web address] 2 [facility], [address] [place] [address], [id number], 3 14:25:59 Wegovy 0.25 mg/0.5 mL subcutaneou s pen injector 2022 023 [email or web address] 9 [facility] [place], [address], 3 08:44:47 Flonase Allergy Relief 50 mcg/actuati on nasal spray,suspe nsion 2022 023 [email or web address] 2 [facility] [place], [address], 3 16:23:10 Zyrtec 10 mg tablet 2022 023 [email or web address] [id number] 9 [facility] [place], [address], 3 08:44:34 Wellbutrin SR 150 mg tablet, 12 hr sustained-r elease [address] [facility] [address] [facility], [address] [place], [address], 3 08:44:29 Seroquel 100 mg tablet 2022 023 [email or web address] [id number] 9 [facility], [address] [place], [address], 3 08:44:54 Patient TargetsNo targets recorded. Patient [...] ug/dL 250-45 0 Not Available [facility] ([facility]) [address] [place], [address], 07/19/2023 08:21:12 07/18/20 23 07/19/2023 FE+TI BC+FE R UIBC 396 ug/dL 131-42 5 Not Available [facility] ([facility]) [address] [place], [address], 07/19/2023 08:21:12 07/18/20 23 07/19/2023 FE+TI BC+FE R iron 31 ug/dL 27-159 Not Available [facility] ([facility]) [address] [place], [address], 07/19/2023 08:21:12 07/18/20 23 07/19/2023 FE+TI BC+FE R iron saturation 7 % 15-55 alert low Not Available [facility] ([facility]) [address] [place], [address], 07/19/2023 08:21:12 07/18/20 23 07/19/2023 FE+TI BC+FE R ferritin 61 NG/mL 15-150 Not Available [facility] ([facility]) [address] [place], [address], 07/19/2023 08:21:12 07/18/20 23 07/19/2023 CBC WITH DIFFE RENTI AL/PL ATELE T WBC 9.7 x10e3 /uL 3.4-10 .8 Not Available [facility] ([facility]) [address] [place], [address], 07/19/2023 08:21:13 07/18/20 23 07/19/2023 CBC WITH DIFFE RENTI AL/PL ATELE T RBC 4.95 x10e6 /uL 3.77-5 .28 Not Available [facility] ([facility]) [address] [place], [address], 07/19/2023 08:21:13 07/18/2007/19/2023 CBC WITH DIFFE RENTI AL/PL ATELE T hemoglobin 13.1 g/dL 11.1-1 5.9 Not Available [facility] ([facility]) [address] [place], [address], 07/19/2023 08:21:13 07/18/20 23 07/19/2023 CBC WITH DIFFE RENTI AL/PL ATELE T hematocrit 40.6 % 34.0-4 6.6 Not Available [facility] ([facility]) [address] [place], [address], 07/19/2023 08:21:13 07/18/20 23 07/19/2023 CBC WITH DIFFE RENTI AL/PL ATELE T MCV 82 fL 79-97 Not Available [facility] ([facility]) [address] [facility], [place], [address], 07/19/2023 08:21:13 07/18/20 23 07/19/2023 CBC WITH DIFFE RENTI AL/PL ATELE T MCH 26.5 pg 26.6-3 3.0 below low normal Not Available [facility] ([facility]) [address] [facility], [place], [address], 07/19/2023 08:21:13 07/18/20 23 07/19/2023 CBC WITH DIFFE RENTI AL/PL ATELE T MCHC 32.3 g/dL 31.5-3 5.7 Not Available [facility] ([facility]) [address] [facility], [place], [address], 07/19/2023 08:21:13 07/18/20 23 07/19/2023 CBC WITH DIFFE RENTI AL/PL ATELE T RDW 13.1 % 11.7-1 5.4 Not Available [facility] ([facility]) [address] [facility], [place], [address], 07/19/2023 08:21:13 07/18/20 23 07/19/2023 CBC WITH DIFFE RENTI AL/PL ATELE T platelets 287 x10e3 /uL 150-45 0 Not Available [facility] ([facility]) [address] [place], [address], 07/19/2023 08:21:13 07/18/20 23 07/19/2023 CBC WITH DIFFE RENTI AL/PL ATELE T neutrophils 65 % not estab. Not Available [facility] ([facility]) [address] [place], [address], 07/19/2023 08:21:13 07/18/20 23 07/19/2023 CBC WITH DIFFE RENTI AL/PL ATELE T lymphs 24 % not estab. Not Available [facility] ([facility]) [address] [facility], [place], [address], 07/19/2023 08:21:13 07/18/20 23 07/19/2023 CBC WITH DIFFE RENTI AL/PL ATELE T monocytes 7 % not estab. Not Available [facility] ([facility]) [address] [facility], [place], [address], 07/19/2023 08:21:13 07/18/20 23 07/19/2023 CBC WITH DIFFE RENTI AL/PL ATELE T eos 3 % not estab. Not Available [facility] ([facility]) [address] [facility], [place], [address], 07/19/2023 08:21:13 07/18/20 23 07/19/2023 CBC WITH DIFFE RENTI AL/PL ATELE T basos 0 % not estab. Not Available [facility] ([facility]) [address] [place], [address], 07/19/2023 08:21:13 07/18/20 23 07/19/2023 CBC WITH DIFFE RENTI AL/PL ATELE T immature cells 4 H YOUTH DEVELOPMENT SPECIALIST Not Available [facility] ([facility]) [address] [place], [address], 07/19/2023 08:21:13 07/18/20 23 07/19/2023 CBC WITH DIFFE RENTI AL/PL ATELE T neutrophils (absolute) 6.4 x10e3 /uL 1.4-7. 0 Not Available [facility] ([facility]) [address] [place], [address], 07/19/2023 08:21:13 07/18/20 23 07/19/2023 CBC WITH DIFFE RENTI AL/PL ATELE T lymphs (absolute) 2.3 x10e3 /uL 0.7-3. 1 Not Available [facility] ([facility]) [address] [facility], [place], [address], 07/19/2023 08:21:13 07/18/20 23 07/19/2023 CBC WITH DIFFE RENTI AL/PL ATELE T monocytes(ab solute) 0.6 x10e3 /uL 0.1-0. 9 Not Available [facility] ([facility]) [address] [facility], [place], [address], 07/19/2023 08:21:13 07/18/20 23 07/19/2023 CBC WITH DIFFE RENTI AL/PL ATELE T eos (absolute) 0.3 x10e3 /uL 0.0-0. 4 Not Available [facility] ([facility]) [address] [facility], [place], [address], 07/19/2023 08:21:13 07/18/20 23 07/19/2023 CBC WITH DIFFE RENTI AL/PL ATELE T baso (absolute) 0.0 x10e3 /uL 0.0-0. 2 Not Available [facility] ([facility]) [address] [facility], [place], [address], 07/19/2023 08:21:13 07/18/20 23 07/19/2023 CBC WITH DIFFE RENTI AL/PL ATELE T immature granulocytes 1 % not estab. Not Available [facility] ([facility]) [address] [facility], [place], [address], 07/19/2023 08:21:13 07/18/20 23 07/19/2023 CBC WITH DIFFE RENTI AL/PL ATELE T immature grans (abs) 0.1 x10e3 /uL 0.0-0. 1 Not Available [facility] ([facility]) [address] [facility], [place], [address], 07/19/2023 08:21:13 07/18/20 23 07/19/2023 CBC WITH DIFFE RENTI AL/PL ATELE T NRBC 4 H YOUTH DEVELOPMENT SPECIALIST Not Available [facility] ([facility]) [address] [facility], [place], [address], 07/19/2023 08:21:13 07/18/20 23 07/19/2023 CBC WITH DIFFE RENTI AL/PL ATELE T hematology comments: 4 H YOUTH DEVELOPMENT SPECIALIST Not Available [facility] ([facility]) [address] [facility], [place], [address], 07/19/2023 08:21:13 07/18/20 23 07/19/2023 COMP. METAB OLIC PANEL (14) glucose 93 mg/dL 70-99 Not Available [facility] ([facility]) [address] [facility], [place], [address], 07/19/2023 08:21:15 07/18/20 23 07/19/2023 COMP. METAB OLIC PANEL (14) BUN 14 mg/dL 6-20 Not Available [facility] ([facility]) [address] [place], [address], 07/19/2023 08:21:15 07/18/20 23 07/19/2023 COMP. METAB OLIC PANEL (14) creatinine 0.77 mg/dL 0.57-1 .00 Not Available [facility] ([facility]) [address] [facility], [place], [address], 07/19/2023 08:21:15 07/18/20 23 07/19/2023 COMP. METAB OLIC PANEL (14) eGFR 110 mL/mi n/1.7 3 >59 Not Available [facility] ([facility]) [address] [place], [address], 07/19/2023 08:21:15 07/18/20 23 07/19/2023 COMP. METAB OLIC PANEL (14) BUN/creatini ne ratio 18 9-23 Not Available [facility] ([facility]) [address] [facility] [place], [address], 07/19/2023 08:21:15 07/18/20 23 07/19/2023 COMP. METAB OLIC PANEL (14) sodium 141 mmol/ L 134-14 4 Not Available [facility] ([facility]) [address] [place], [address], 07/19/2023 08:21:15 07/18/20 23 07/19/2023 COMP. METAB OLIC PANEL (14) potassium 4.1 mmol/ L 3.5-5. 2 Not Available [facility] ([facility]) [address] [facility] [place], [address], 07/19/2023 08:21:15 07/18/20 23 07/19/2023 COMP. METAB OLIC PANEL (14) chloride 104 mmol/ L 96-106 Not Available [facility] ([facility]) [address] [facility] [place], [address], 07/19/2023 08:21:15 07/18/20 23 07/19/2023 COMP. METAB OLIC PANEL (14) carbon dioxide, total 21 mmol/ L 20-29 Not Available [facility] ([facility]) [address] [facility] [place], [address], 07/19/2023 08:21:15 07/18/20 23 07/19/2023 COMP. METAB OLIC PANEL (14) calcium 9.4 mg/dL 8.7-10 .2 Not Available [facility] ([facility]) [address] [facility] [place], [address], 07/19/2023 08:21:15 07/18/20 23 07/19/2023 COMP. METAB OLIC PANEL (14) protein, total 7.2 g/dL 6.0-8. 5 Not Available [facility] ([facility]) [address] [facility] [place], [address], 07/19/2023 08:21:15 07/18/20 23 07/19/2023 COMP. METAB OLIC PANEL (14) albumin 4.3 g/dL 4.0-5. 0 Not Available [facility] ([facility]) [address] [facility] [place], [address], 07/19/2023 08:21:15 07/18/20 23 07/19/2023 COMP. METAB OLIC PANEL (14) globulin, total 2.9 g/dL 1.5-4. 5 Not Available [facility] ([facility]) [address] [facility], [place], [address], 07/19/2023 08:21:15 07/18/20 23 07/19/2023 COMP. METAB OLIC PANEL (14) A/G ratio 1.5 1.2-2. 2 Not Available [facility] ([facility]) [address] [facility], [place], [address], 07/19/2023 08:21:15 07/18/20 23 07/19/2023 COMP. METAB OLIC PANEL (14) bilirubin, total 0.2 mg/dL 0.0-1. 2 Not Available [facility] ([facility]) [address] [facility], [place], [address], 07/19/2023 08:21:15 07/18/20 23 07/19/2023 COMP. METAB OLIC PANEL (14) alkaline phosphatase 80 IU/L 44-121 Not Available [facility] ([facility]) [address] [facility], [place], [address], 07/19/2023 08:21:15 07/18/20 23 07/19/2023 COMP. METAB OLIC PANEL (14) AST (SGOT) 14 IU/L 0-40 Not Available [facility] ([facility]) [address] [place], [address], 07/19/2023 08:21:15 07/18/20 23 07/19/2023 COMP. METAB OLIC PANEL (14) ALT (SGPT) 10 IU/L 0-32 Not Available [facility] ([facility]) [address] [place], [address], 07/19/2023 08:21:15 08/08/2008/09/2023 FE+TI BC+FE R iron bind.cap.(TI BC) 369 ug/dL 250-45 0 Not Available [facility] ([facility]) [address] [place], [address], 08/09/2023 07:14:21 08/08/2008/09/2023 FE+TI BC+FE R UIBC 334 ug/dL 131-42 5 Not Available [facility] ([facility]) [address] [place], [address], 08/09/2023 07:14:21 08/08/2008/09/2023 FE+TI BC+FE R iron 35 ug/dL 27-159 Not Available [facility] ([facility]) [address] [place], [address], 08/09/2023 07:14:21 08/08/2008/09/2023 FE+TI BC+FE R iron saturation 9 % 15-55 alert low Not Available [facility] ([facility]) [address] [place], [address], 08/09/2023 07:14:21 08/08/2008/09/2023 FE+TI BC+FE R ferritin 53 NG/mL 15-150 Not Available [facility] ([facility]) [address] [place], [address], 08/09/2023 07:14:21 08/08/2008/09/2023 TSH+F REE T4 TSH 0.925 uIU/m L 0.450- 4.500 Not Available [facility] ([facility]) [address] [facility] [place], [address], 08/09/2023 07:14:22 08/08/2008/09/2023 TSH+F REE T4 T4,free(dire ct) 0.96 NG/dL 0.82-1 .77 Not Available [facility] ([facility]) [address] [facility], [place], [address], 08/09/2023 07:14:22 08/08/2008/09/2023 CBC WITH DIFFE RENTI AL/PL ATELE T WBC 7.7 x10e3 /uL 3.4-10 .8 Not Available [facility] ([facility]) [address] [place], [address], 08/09/2023 07:14:24 08/08/2008/09/2023 CBC WITH DIFFE RENTI AL/PL ATELE T RBC 4.90 x10e6 /uL 3.77-5 .28 Not Available [facility] ([facility]) [address] [facility], [place], [address], 08/09/2023 07:14:24 08/08/2008/09/2023 CBC WITH DIFFE RENTI AL/PL ATELE T hemoglobin 13.2 g/dL 11.1-1 5.9 Not Available [facility] ([facility]) [address] [place], [address], 08/09/2023 07:14:24 08/08/2008/09/2023 CBC WITH DIFFE RENTI AL/PL ATELE T hematocrit 40.4 % 34.0-4 6.6 Not Available [facility] ([facility]) [address] [place], [address], 08/09/2023 07:14:24 08/08/2008/09/2023 CBC WITH DIFFE RENTI AL/PL ATELE T MCV 82 fL 79-97 Not Available [facility] ([facility]) [address] [facility], [place], [address], 08/09/2023 07:14:24 08/08/2008/09/2023 CBC WITH DIFFE RENTI AL/PL ATELE T MCH 26.9 pg 26.6-3 3.0 Not Available [facility] ([facility]) [address] [facility], [place], [address], 08/09/2023 07:14:24 08/08/2008/09/2023 CBC WITH DIFFE RENTI AL/PL ATELE T MCHC 32.7 g/dL 31.5-3 5.7 Not Available [facility] ([facility]) [address] [facility], [place], [address], 08/09/2023 07:14:24 08/08/2008/09/2023 CBC WITH DIFFE RENTI AL/PL ATELE T RDW 13.3 % 11.7-1 5.4 Not Available [facility] ([facility]) [address] [facility], [place], [address], 08/09/2023 07:14:24 08/08/2008/09/2023 CBC WITH DIFFE RENTI AL/PL ATELE T platelets 298 x10e3 /uL 150-45 0 Not Available [facility] ([facility]) [address] [facility], [place], [address], 08/09/2023 07:14:24 08/08/2008/09/2023 CBC WITH DIFFE RENTI AL/PL ATELE T neutrophils 68 % not estab. Not Available [facility] ([facility]) [address] [facility], [place], [address], 08/09/2023 07:14:24 08/08/2008/09/2023 CBC WITH DIFFE RENTI AL/PL ATELE T lymphs 23 % not estab. Not Available [facility] ([facility]) [address] [facility], [place], [address], 08/09/2023 07:14:24 08/08/2008/09/2023 CBC WITH DIFFE RENTI AL/PL ATELE T monocytes 6 % not estab. Not Available [facility] ([facility]) [address] [facility], [place], [address], 08/09/2023 07:14:24 08/08/2008/09/2023 CBC WITH DIFFE RENTI AL/PL ATELE T eos 3 % not estab. Not Available [facility] ([facility]) [address] [facility], [place], [address], 08/09/2023 07:14:24 08/08/2008/09/2023 CBC WITH DIFFE RENTI AL/PL ATELE T basos 0 % not estab. Not Available [facility] ([facility]) [address] [facility], [place], [address], 08/09/2023 07:14:24 08/08/2008/09/2023 CBC WITH DIFFE RENTI AL/PL ATELE T immature cells 4 H YOUTH DEVELOPMENT SPECIALIST Not Available [facility] ([facility]) [address] [facility], [place], [address], 08/09/2023 07:14:24 08/08/2008/09/2023 CBC WITH DIFFE RENTI AL/PL ATELE T neutrophils (absolute) 5.2 x10e3 /uL 1.4-7. 0 Not Available [facility] ([facility]) [address] [facility], [place], [address], 08/09/2023 07:14:24 08/08/2008/09/2023 CBC WITH DIFFE RENTI AL/PL ATELE T lymphs (absolute) 1.8 x10e3 /uL 0.7-3. 1 Not Available [facility] ([facility]) [address] [place], [address], 08/09/2023 07:14:24 08/08/20 23 08/09/2023 CBC WITH DIFFE RENTI AL/PL ATELE T monocytes(ab solute) 0.5 x10e3 /uL 0.1-0. 9 Not Available [facility] ([facility]) [address] [facility], [place], [address], 08/09/2023 07:14:24 08/08/2008/09/2023 CBC WITH DIFFE RENTI AL/PL ATELE T eos (absolute) 0.2 x10e3 /uL 0.0-0. 4 Not Available [facility] ([facility]) [address] [facility], [place], [address], 08/09/2023 07:14:24 08/08/2008/09/2023 CBC WITH DIFFE RENTI AL/PL ATELE T baso (absolute) 0.0 x10e3 /uL 0.0-0. 2 Not Available [facility] ([facility]) [address] [facility], [place], [address], 08/09/2023 07:14:24 08/08/2008/09/2023 CBC WITH DIFFE RENTI AL/PL ATELE T immature granulocytes 0 % not estab. Not Available [facility] ([facility]) [address] [facility], [place], [address], 08/09/2023 07:14:24 08/08/2008/09/2023 CBC WITH DIFFE RENTI AL/PL ATELE T immature grans (abs) 0.0 x10e3 /uL 0.0-0. 1 Not Available [facility] ([facility]) [address] [facility], [place], [address], 08/09/2023 07:14:24 08/08/2008/09/2023 CBC WITH DIFFE RENTI AL/PL ATELE T NRBC 4 H YOUTH DEVELOPMENT SPECIALIST Not Available [facility] ([facility]) [address] [place], [address], 08/09/2023 07:14:24 08/08/20 23 08/09/2023 CBC WITH DIFFE RENTI AL/PL LATONYALE T hematology comments: 4 H YOUTH DEVELOPMENT SPECIALIST Not Available [facility] ([facility]) [address] [facility], [place], [address], 08/09/2023 07:14:24 08/08/20 23 08/09/2023 COMP. METAB OLIC PANEL (14) glucose 99 mg/dL 70-99 Not Available [facility] ([facility]) [address] [facility] [place], [address], 08/09/2023 07:14:25 08/08/2008/09/2023 COMP. METAB OLIC PANEL (14) BUN 17 mg/dL 6-20 Not Available [facility] ([facility]) [address] [facility], [place], [address], 08/09/2023 07:14:25 08/08/20 23 08/09/2023 COMP. METAB OLIC PANEL (14) creatinine 0.83 mg/dL 0.57-1 .00 Not Available [facility] ([facility]) [address] [facility], [place], [address], 08/09/2023 07:14:25 08/08/20 23 08/09/2023 COMP. METAB OLIC PANEL (14) eGFR 100 mL/mi n/1.7 3 >59 Not Available [facility] ([facility]) [address] [facility], [place], [address], 08/09/2023 07:14:25 08/08/20 23 08/09/2023 COMP. METAB OLIC PANEL (14) BUN/creatini ne ratio 20 - Not Available [facility] ([facility]) [address] [place], [address], 08/09/2023 07:14:25 08/08/20 23 08/09/2023 COMP. METAB OLIC PANEL (14) sodium 144 mmol/ L 134-14 4 Not Available [facility] ([facility]) [address] [facility] [place], [address], 08/09/2023 07:14:25 08/08/20 23 08/09/2023 COMP. METAB OLIC PANEL (14) potassium 4.4 mmol/ L 3.5-5. 2 Not Available [facility] ([facility]) [address] [facility] [place], [address], 08/09/2023 07:14:25 08/08/20 23 08/09/2023 COMP. METAB OLIC PANEL (14) chloride 105 mmol/ L 96-106 Not Available [facility] ([facility]) [address] [facility] [place], [address], 08/09/2023 07:14:25 08/08/20 23 08/09/2023 COMP. METAB OLIC PANEL (14) carbon dioxide, total 22 mmol/ L 20-29 Not Available [facility] ([facility]) [address] [facility] [place], [address], 08/09/2023 07:14:25 08/08/2008/09/2023 COMP. METAB OLIC PANEL (14) calcium 9.2 mg/dL 8.7-10 .2 Not Available [facility] ([facility]) [address] [place], [address], 08/09/2023 07:14:25 08/08/2008/09/2023 COMP. METAB OLIC PANEL (14) protein, total 6.9 g/dL 6.0-8. 5 Not Available [facility] ([facility]) [address] [place], [address], 08/09/2023 07:14:25 08/08/20 23 08/09/2023 COMP. METAB OLIC PANEL (14) albumin 4.3 g/dL 4.0-5. 0 Not Available [facility] ([facility]) [address] [place], [address], 08/09/2023 07:14:25 08/08/20 23 08/09/2023 COMP. METAB OLIC PANEL (14) globulin, total 2.6 g/dL 1.5-4. 5 Not Available [facility] ([facility]) [address] [facility] [place], [address], 08/09/2023 07:14:25 08/08/20 23 08/09/2023 COMP. METAB OLIC PANEL (14) A/G ratio 1.7 1.2-2. 2 Not Available [facility] ([facility]) [address] [facility] [place], [address], 08/09/2023 07:14:25 08/08/20 23 08/09/2023 COMP. METAB OLIC PANEL (14) bilirubin, total <0.2 mg/dL 0.0-1. 2 Not Available [facility] ([facility]) [address] [facility] [place], [address], 08/09/2023 07:14:25 08/08/20 23 08/09/2023 COMP. METAB OLIC PANEL (14) alkaline phosphatase 80 IU/L 44-121 Not Available [facility]) [address] [facility], [place], [address], 08/09/2023 07:14:25 08/08/20 23 08/09/2023 COMP. METAB OLIC PANEL (14) AST (SGOT) 13 IU/L 0-40 Not Available [facility] ([facility]) [address] [facility], [place], [address], 08/09/2023 07:14:25 08/08/20 23 08/09/2023 COMP. METAB OLIC PANEL (14) ALT (SGPT) 14 IU/L 0-32 Not Available [facility] ([facility]) [address] [facility], [place], [address], 08/09/2023 07:14:25 08/08/20 23 08/09/2023 VITAM IN B12 AND FOLAT E vitamin B12 437 pg/mL 232-12 45 Not Available [facility] ([facility]) [address] [facility], [place], [address], 08/09/2023 07:14:26 08/08/20 23 08/09/2023 VITAM IN B12 AND FOLAT E folate (folic acid), serum 13.0 NG/mL >3.0 A serum folat e sandra ntrat ion of less than 3.1 ng/mL is consi dered to repre sent clini gisell defic iency . Not Available [facility] ([facility]) [address] [facility], [place], [address], 08/09/2023 07:14:26 08/08/20 23 08/09/2023 VITAM IN [...] and D. Alicia avalos DC: The [facility] Press . 2. Aiden rivera MF, Farrah dixon [place], Hillary off-F errjaelyn i NUÑEZ, et al. Evalu ation , treat ment, and preve ntion of vitam in D defic iency : an Endoc rine Socie ty clini gisell pract ice guide line. JCEM. 2010; 96(7) :1911 -30. Not Available [facility] ([facility]) [address] [facility], [place], [address], 08/09/2023 07:14:27 08/08/20 23 08/09/2023 MAGNE SIUM magnesium 1.9 mg/dL 1.6-2. 3 Not Available [facility] ([facility]) [address] [facility], [place], [address], 08/09/2023 07:14:28 05/26/20 23 05/26/2023 PAP nap (PROC ) No observ ation record ed. [email or web address] Not Available 2022 09:46:47 Result Notes None recorded. Procedures Surgical History Date Name Laterality Status Provider Name and Address Organization Details Recorded Time 03/18/2020 Date of Last Pap Smear completed MARGARETBart MELTON [facility] & [place] 04/05/2023 13:05:37 10/30/2011 Tonsillecto my/Adenoide ctomy completed [facility] JONES MELTON [facility] & [place] 04/05/2023 13:05:37 Imaging Results None recorded. Procedure [...] propionate 50 mcg/actuati on nasal spray,suspe nsion [place] 1 spray every day by intranasa l [...] Updated DateTime 3 157.48 cm 50.1 kg/m2 176409. 31 g 97.7 [degF] 98 % 98 % 105 /min 92/66 mm[Hg] MARGARET MELTON [facility] & [place] 3 14:59:03 Date Recorded Body height Body mass index (BMI) Body weight Body temperature Oxygen saturation Oxygen saturation in Arterial blood by Pulse oximetry Heart rate Systolic And Diastolic Provider Name and Address Organization Details Last Updated DateTime 3 157.48 cm 47.6 kg/m2 710687. 42 g 98.2 [degF] 99 % 99 % 103 /min 124/86 mm[Hg] MARGARET MELTON [facility] & [place] 3 15:58:53 Date Recorded Body height Body weight Body mass index (BMI) Body temperature Oxygen saturation Oxygen saturation in Arterial blood by Pulse oximetry Heart rate Systolic And Diastolic Provider Name and Address Organization Details Last Updated DateTime 3 157.48 cm 639794. 72 g 49.9 kg/m2 97.7 [degF] 100 % 100 % 128 /min 100/76 mm[Hg] MARGARET MELTON [facility] & [place] 3 10:09:53 Date Recorded Body height Body mass index (BMI) Body weight Body temperature Oxygen saturation Oxygen saturation in Arterial blood by Pulse oximetry Heart rate Systolic And Diastolic Provider Name and Address Organization Details Last Updated DateTime 3 157.48 cm 51.9 kg/m2 678733. 87 g 98 [degF] 98 % 98 % 91 /min 127/74 mm[Hg] Agnes MELTON [facility] [place] 3 08:43:53 Date Recorded Body height Body mass index (BMI) Body weight Body temperature Oxygen saturation Oxygen saturation in Arterial blood by Pulse oximetry Heart rate Systolic And Diastolic Provider Name and Address Organization Details Last Updated DateTime 157.48 cm 51 kg/m2 173937. 27 g 97.5 [degF] 99 % 99 % 129 /min 124/90 mm[Hg] Dheeraj MULTANI [facility] & [place] 15:59:39 Social History Question Answer Notes LastModified by [employer] Details LastModified Time Tobacco Smoking Status Former Smoker MARGARET hassan, [facility] [place] 04/05/2023 13:05:37 Do You Have An Advance [...] Functional Status Question Answer Note LastModified by [employer] Details LastModified Time Do you use any illicit or recreational drugs? Yes Information not available 04/05/2023 Do you or have you ever used any other forms of tobacco or nicotine? Yes Information not available 06/02/2023 What is your level of alcohol consumption? Occasional Information not available 04/05/2023 Do you or have you ever used smokeless tobacco? 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 Current user of electronic cigarettes [email or web address] Information not available 06/02/2023 What is your exercise level? Moderate Information not available 04/05/2023 Mental Status Question Answer Note LastModified by Organization D etails LastModified Time Do you feel stressed (tense, restless, nervous, or anxious, or unable to sleep at night)? [id number] Information not available 04/05/2023 Family History Relationship [...] SNOMED-CT Code Diagnosis ICD10 Code Diagnosis Note [id number] Unruly Bustillo in, DIAGNOSTIC TECHNICIAN [facility] [address] [facility] [address] [address] [place] [address] 04/05/2023 13:02:12 04/05/2023 13:39:51 Adult health examination 793047939 Z00.00 Will check complete bloodwork. Will call with results.Co unseled on dietary modificati ons and healthy eating habits.Cou nseled on decreasing stress levels,Rec ommend yearly eye examsRecom mend regular dental exams/ashely rnings. Thyroid di sorder screening 288082881 Z13.29 Mixed anxi ety and depressive disorder 924837833 F41.8 Screening for malignant neoplasm of cervix 014526437 Z12.[address] James Cowart. History of ectopic pregnancie s. She is up to date on preventati ve screenings . Excessive daytime sleepiness with sleep paralysis 165500720 G47.53 Patient has a history of sleep paralysis. History of snoring. History of restless sleep patterns. Body mass index 40+ - severely obese 467444641 Z68.43 Patient is exercising . Patient is attempting to make dietary modificati ons. [id number] Unruly Bustillo in[address] [place] [address] 04/06/2023 08:02:02 04/06/2023 08:41:28 [id number] Tramaine Winkler MD [address] [place] [address] 04/26/2023 12:57:14 04/26/2023 13:15:14 Obstructive sleep apnea syndrome 77812275 G47.33 papnap...t itration to autopap 6-20 cm H2O. Obesity 945721247 E66.9 Patient aware that weight loss will improve not eliminate her need for auto PAP. [id number] Unruly Bustillo in[address] [place] [address] 06/02/2023 14:51:05 06/02/2023 15:15:39 Mixed anxiety and depressive disorder 045024748 F41.8 Patient is tolerating medication . Will refill.Danny l see back in 1 month.Will check vitamin levels, CBC, CMP, and iron panel at that time. [id number] Unruly Bustillo in[address] [place] [address] 07/18/2023 15:54:45 07/18/2023 16:18:02 Viral upper respiratory tract infection 899314077 J06.9 Humidifier at night.Use medication as directed.O TC meds for cough.Foll ow up if no improvemen t. Iron defic iency anemia 79100491 D50.9 Patient finished her Iron supplement s.Will check levels today. Will call with results. Body mass index 30+ - obesity 448180408 Z68.42 Will start Wegovy.Danny l see back in 1 month for weight check.Will increase as tolerated. [id number] [facility] [address] [place] [address] [address] [place] [address] 08/08/2023 09:58:51 08/08/2023 11:08:21 Tremor 56273487 R25.1 Will check lab work. Will call with results. Iron defic iency anemia 99349449 D50.9 Mixed anxi ety and depressive disorder 174999369 F41.8 Patient is reacting to the medication [...] do genetic testing at patient request today. [id number] [facility] [address] [facility] [address] [place] [address] 08/23/2023 15:37:17 08/23/2023 16:37:13 Mixed anxiety and depressive disorder 945444825 F41.8 Counseled in depth on symptoms of concern and when to go to ER. at [facility]side. Counseled on concerns and behavior changes and when to reach out for help. Support system is intact at home.Jose Luis knight on genetic testing results.Se e patient back in 1 month.Catrina ent is tolerating the Duloxetine 60mg. Vitamin D deficiency 347 54718 E55.9 [id number] dAen Petty MD [facility] Oncology and H[facility]olog [facility] [address] [facility] [address] [place] [address] 08/23/2023 08:31:40 08/23/2023 09:08:39 Iron deficiency anemia 98681362 D50.9 Labs on August 08, 2023 with magnesium at 1.9. Vitamin-D level low at 22.4. B12 437. Folic acid 13. Normal liver function testing. Normal renal function. Normal electrolyt es. White blood cell count 7.7. Red blood cell count 4.90 hemoglobin 13.2 and hematocrit 40.4. MCV 82. Platelet count 959757. Normal cell differenti al. TSH 0.9. T4 [...] response to increasing PO supplement ation. Headache 56932438 R51.9 Concern for possible migraine. Will follow-up [...] ID Guarantor Name 10/01/2023 1 [employer] [id number] A Leticia Wilkins [id number] 17 [id number] Leticia Vo Notes Date Note Type Note Provider Name and Address Organization Details Recorded Time 06/02/2023 text/html patient presents to clinic for medication update. She was placed inpatient at [facility] and was treated by Dr. Rankin. She states her prozac was causing hallucinations. She was started on seroquel and wellbutrin. She is tolerating well. She states she feels so much better. She does not have a follow up scheduled with Dr. Rankin. Unruly Rosen, DIAGNOSTIC TECHNICIAN [address], [place], [address], [facility] 06/02/2023 15:11:10 07/18/2023 text/html patient presents to clinic for follow up. She states she is tolerating her medication. No complaints. She reports some increased sinus drainage and her left ear is itchy. Denies any fever. Reports a dry cough. Denies any sore throat. Unruly Rosen APRN [address], [place], [address], [facility] & [place] 07/18/2023 16:25:02 08/08/2023 text/html patient presents to clinic for an intermittent tremor. She has been titrating the Seroquel over the last week since we spoke. She denies any syncopal episodes. Denies any chest pain. Denies any thoughts of self harm or homicidal thoughts. Denies any hallucinations today. Unruly Rosen APRN [address], [place], [address], [facility] & [place] 08/08/2023 14:26:50 08/23/2023 text/html patient presents to clinic for follow up. She is tolerating the Duloxetine. She denies suicidal or homicidal thoughts. She states that the tremor is completely gone. She states she sees hematology October 04. Unruly Rosen APRN [address], [place], [address], [facility] & [place] 08/23/2023 16:18:32 08/23/2023 text/html 23 yo F [...] and hematocrit 40.4. MCV 82. Platelet count 484564. Normal cell differential. TSH 0.9. T4 0.96. [...] to increasing PO supplementation. Aden Petty MD [address], [place], [address], [place] - [facility] - [place] & [place] 08/23/2023 09:44:31 OBGyn Episode No OBEpisode recorded.
--- OUTSIDE RECORDS SUMMARY | 2025-05-14 13:41 | XMS_ITS | Referral Summary ---
Author Organization [employer] ([place], [place], [place], [place]) Address [address] [place] [address] Care Team Providers Care Director Global Market Research Name Role Phone Stephanie Allen PA-C Primary Care Provider [phone] Allergies Active Allergy Reactions Criticality Noted Date [...] Date Deyvi rded Speak language other than Peruvian at home Not on file 09/01/2024 Want help with school or training Not on file 09/01/2024 Substance Use Answer Date Recorded Used prescription meds for non-medical reasons N ot on file 09/01/2024 Used illegal drugs past 12 months Not on file 09/01/2024 Comments No Sex and Gender Information Value Date Recorded Sex Assigned at Not on file Legal 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
--- OUTSIDE RECORDS SUMMARY | 2025-05-14 13:41 | XMS_ITS | Clinical Summary ---
Author Organization Healthcare Address [address] [place] [address] Care Team Providers Care Electrician Helper Name Role Phone Stephanie Allen Primary Care Provider [phone] Allergies Active Allergy Reactions Criticality Noted Date [...] Team Description 02/21/2025 Telephone Obstetrics & Gynecology [facility] [place] [address] James Cowart MD from Last [...] 19+ 3-dose series) 2017 [facility]-Pap Smear 2019 [id number] Vaccine ( - season) 2024 [facility]-Influenza Vaccine [...] ORDERABLES Final Resu lt Performing Organization Address City/[facility]/ZIP Co de Phone Number [facility] [address] [place] [address] * Hepatitis C Antibody w/Reflex to HCV Quant PCR (11/01/2024 10:24 AM EST) Hepatitis C Antibody Negative Negative 11/01/2024 1:31 PM EST [facility] Blood Venous blood specimen / Unknown Venipuncture / Unknown 11/01/2024 10:24 AM EST 11/01/2024 12:52 PM EST Result Santino Cowart MD LAB BLOOD ORDERABLES Final Resu lt Performing Organization Address City/[facility]/ZIP Co de Phone Number [facility] [address] [place] [address] from Last 3 Months or Most Recently Relevant to Health Maintenance Additional Health Concerns Active Problems Noted Date Diagnosed Date CPM S24 PP LABOR (OBSTETRICS) 11/19/2024 Insurance [place] Care Teams Electrician Helper Relationship Specialty Start Date End Date Stephanie Allen PA [address] [place] [address] PCP - General 08/30/24
--- NOTE | 2025-05-14 13:45 | US_ITS ---
PROCEDURE: US OB BIOPHYSICAL PROFILE CLINICAL INDICATION: Large for gestational age COMPARISON: US US OB FOLLOW UP from 01/28/2025 US OB TRANSVAGINAL from 02/20/2025 US OB FOLLOW UP from 02/20/2025 US OB FOLLOW UP from 02/24/2025 US OB BIOPHYSICAL PROFILE from 04/10/2025 US OB FOLLOW UP from 04/11/2025 US OB BIOPHYSICAL PROFILE from 04/25/2025 US OB BIOPHYSICAL PROFILE from 04/30/2025 FINDINGS: Transabdominal sonographic images of the uterus were obtained. From her established due date she is 37weeks 1day. The following parameters are obtained: Viable Fetus in the cephalic presentation with a posterolateral placenta grade 2. The cervix measures 2.1 cm Measurements: heart Rate = 147bpm Amniotic fluid index: 7.81cm, MVP 5.12 cm Qualitative AFV:2 Breathing movements: 2 Gross Body Movements: 2 Tone: 2 Biophysical profile score: 8 No obvious anomalies evident.Kidneys, bladder, four-chamber heart, three-vessel cord appear normal. IMPRESSION: 1. Viable fetus in the cephalic presentation with a posterolateral placenta grade 2. 2. The fluid is within normal limits with amniotic fluid index 7.81 cm, MVP 5.12 cm. 3. Biophysical profile is 8/8 with good breathing movement and movement seen. 4. Limited anatomical scan appears normal. Dictated by: Ashutosh Waldron MD 05/14/2025 15:16 Ashutosh Waldron MD in [place] 05/14/2025 15:16
== END 2025-05-14 23:59 | disposition home or self-care (01) ==
LOC: RAD 13:35
PROVIDERS: PCP Nurse Practitioner Family; Visit Provider Obstetrics & Gynecology
DX: O26.873 Cervical shortening, third trimester (principal); O99.213 Obesity complicating pregnancy, third trimester; E66.01 Morbid (severe) obesity due to excess calories; Z3A.37 37 weeks gestation of pregnancy; O60.03 Preterm labor without delivery, third trimester
CPT/HCPCS: 76819

== ENCOUNTER 2025-05-22 13:22 | Inpatient (IN) | payer BC, SELFPAY ==
--- OUTSIDE RECORDS SUMMARY | 2025-05-22 13:10 | XMS_ITS | Data Portability ---
Author Organization [facility] & [place] AD[place] Address [address] [place] [id number] Care Team Providers Care Holder Pile Driving Name Role Phone UNRULY ROSEN Primary Care Provider TRAMAINE WINKLER Primary Care Provider Assessment No assessment recorded. Plan of Treatment Reminders Order Date Submit Date Provider Last Modified By Organization Details Last Modified Time Details Appointments None recorded. Lab CBC w/ auto diff 2022 023 [email or web address] 6 [facility], [address] [place], [address], 3 08:47:10 ferritin, serum or plasma 2022 023 [email or web address] 6 [facility], [address] [place], [address], 3 08:47:10 iron + total iron-bindin g capacity (TIBC), serum 2022 023 [email or web address] 6 [facility], [address] [place], [address], 3 08:47:10 CMP, serum or plasma 2022 023 [email or web address] 6 [facility], [address] [place], [address], 3 08:47:10 CBC w/ auto diff 2022 023 MIESHA [facility], [address], [address], [place], [address], 3 07:14:24 vitamin D, 25-hydroxy, total, serum 2022 023 MIESHA [facility], [address], [address], [place], [address], 3 07:14:27 vitamin B12 + folate, serum or blood 2022 023 MIESHA [facility], [address], [address], [place], [address], 3 07:14:26 magnesium, serum or plasma 2022 023 MIESHA [facility], [address], [address], [place], [address], 3 07:14:28 TSH + free T4, serum 2022 023 MIESHA [facility], [address], [address], [place], [address], 3 07:14:23 CMP, serum or plasma 2022 023 MIESHA [facility], [address], [address], [place], [address], 3 07:14:25 iron + TIBC + ferritin, serum 2022 023 MIESHA [facility], [address], [address], [place], [address], 3 07:14:21 iron + TIBC + ferritin, serum 2022 023 MIESHA [facility], [address], [address], [place], [address], 3 08:21:13 CBC w/ auto diff 2022 023 [place] [facility], [address], [facility] [address], [place], [address], 3 08:21:13 CMP, serum or plasma 2022 023 [place] [facility], [address], [facility] [address], [place], [address], 3 08:21:15 Referral behavioral health referral 2022 023 [email or web address] 3 [facility], [facility], [address], [place], [address], 3 08:01:02 Procedures None recorded. Surgeries None recorded. Imaging None recorded. Medication Orders Vitamin D3 125 mcg (5,000 unit) tablet 2022 023 [facility], [address] [place] [address], [id number], 3 16:18:04 duloxetine 60 mg capsule,del ayed release 2022 023 [email or web address] 2 [facility], [address] [place] [address], [id number], 3 14:25:59 Wegovy 0.25 mg/0.5 mL subcutaneou s pen injector 2022 023 [email or web address] 9 [facility], [address] [place], [address], 3 08:44:47 Flonase Allergy Relief 50 mcg/actuati on nasal spray,suspe nsion 2022 023 [email or web address] 2 [facility], [address] [place], [address], 3 16:23:10 Zyrtec 10 mg tablet 2022 023 [email or web address] [id number] 9 [facility], [address] [place], [address], 3 08:44:34 Wellbutrin SR 150 mg tablet, 12 hr sustained-r elease [address] [facility], [address] [place], [address], 3 08:44:29 Seroquel 100 mg tablet 2022 023 [email or web address] [id number] 9 [facility], [address] [place], [address], 3 08:44:54 Patient TargetsNo targets recorded. Patient InstructionsNo instructions recorded. Reason for Referral Behavioral Health Referral f or Mixed anxiety and depressive disorder Referring Physician: Unruly Rosen, Infectious Disease, Encounter Date: 08/08/2023 Results Created Date Observation Date Name Description Value Unit Range Abnormal Flag Note LastModifiedBy Organization Detail LastModifiedTime 07/18/2007/19/2023 FE+TI BC+FE R iron bind.cap.(TI BC) 427 ug/dL 250-45 0 Not Available [facility] ([facility]) [address] [place], [address], 07/19/2023 08:21:12 07/18/20 23 07/19/2023 FE+TI BC+FE R UIBC 396 ug/dL 131-42 5 Not Available [facility] ([facility]) [address] [place], [address], 07/19/2023 08:21:12 07/18/20 23 07/19/2023 FE+TI BC+FE R iron 31 ug/dL 27-159 Not Available [facility] ([facility]) [address] [place], [address], 07/19/2023 08:21:12 07/18/20 23 07/19/2023 FE+TI BC+FE R iron saturation 7 % 15-55 alert low Not Available [facility] ([facility]) [address] [place], [address], 07/19/2023 08:21:12 07/18/20 23 07/19/2023 FE+TI BC+FE R ferritin 61 NG/mL 15-150 Not Available [facility] ([facility]) [address] [place], [address], 07/19/2023 08:21:12 07/18/20 23 07/19/2023 CBC WITH DIFFE RENTI AL/PL ATELE T WBC 9.7 x10e3 /uL 3.4-10 .8 Not Available [facility] ([facility]) [address] [place], [address], 07/19/2023 08:21:13 07/18/20 23 07/19/2023 CBC WITH DIFFE RENTI AL/PL ATELE T RBC 4.95 x10e6 /uL 3.77-5 .28 Not Available [facility] ([facility]) [address] [place], [address], 07/19/2023 08:21:13 07/18/2007/19/2023 CBC WITH DIFFE RENTI AL/PL ATELE T hemoglobin 13.1 g/dL 11.1-1 5.9 Not Available [facility] ([facility]) [address] [place], [address], 07/19/2023 08:21:13 07/18/20 23 07/19/2023 CBC WITH DIFFE RENTI AL/PL ATELE T hematocrit 40.6 % 34.0-4 6.6 Not Available [facility] ([facility]) [address] [place], [address], 07/19/2023 08:21:13 07/18/20 23 07/19/2023 CBC WITH DIFFE RENTI AL/PL ATELE T MCV 82 fL 79-97 Not Available [facility] ([facility]) [address] [facility], [place], [address], 07/19/2023 08:21:13 07/18/20 23 07/19/2023 CBC WITH DIFFE RENTI AL/PL ATELE T MCH 26.5 pg 26.6-3 3.0 below low normal Not Available [facility] ([facility]) [address] [facility], [place], [address], 07/19/2023 08:21:13 07/18/20 23 07/19/2023 CBC WITH DIFFE RENTI AL/PL ATELE T MCHC 32.3 g/dL 31.5-3 5.7 Not Available [facility] ([facility]) [address] [facility], [place], [address], 07/19/2023 08:21:13 07/18/20 23 07/19/2023 CBC WITH DIFFE RENTI AL/PL ATELE T RDW 13.1 % 11.7-1 5.4 Not Available [facility] ([facility]) [address] [facility], [place], [address], 07/19/2023 08:21:13 07/18/20 23 07/19/2023 CBC WITH DIFFE RENTI AL/PL ATELE T platelets 287 x10e3 /uL 150-45 0 Not Available [facility] ([facility]) [address] [place], [address], 07/19/2023 08:21:13 07/18/20 23 07/19/2023 CBC WITH DIFFE RENTI AL/PL ATELE T neutrophils 65 % not estab. Not Available [facility] ([facility]) [address] [place], [address], 07/19/2023 08:21:13 07/18/20 23 07/19/2023 CBC WITH DIFFE RENTI AL/PL ATELE T lymphs 24 % not estab. Not Available [facility] ([facility]) [address] [facility], [place], [address], 07/19/2023 08:21:13 07/18/20 23 07/19/2023 CBC WITH DIFFE RENTI AL/PL ATELE T monocytes 7 % not estab. Not Available [facility] ([facility]) [address] [facility], [place], [address], 07/19/2023 08:21:13 07/18/20 23 07/19/2023 CBC WITH DIFFE RENTI AL/PL ATELE T eos 3 % not estab. Not Available [facility] ([facility]) [address] [facility], [place], [address], 07/19/2023 08:21:13 07/18/20 23 07/19/2023 CBC WITH DIFFE RENTI AL/PL ATELE T basos 0 % not estab. Not Available [facility] ([facility]) [address] [place], [address], 07/19/2023 08:21:13 07/18/20 23 07/19/2023 CBC WITH DIFFE RENTI AL/PL ATELE T immature cells S[employer]IOR PRODUCTION SUPERVISOR Not Available [facility] ([facility]) [address] [place], [address], 07/19/2023 08:21:13 07/18/20 23 07/19/2023 CBC WITH DIFFE RENTI AL/PL ATELE T neutrophils (absolute) 6.4 x10e3 /uL 1.4-7. 0 Not Available [facility] ([facility]) [address] [place], [address], 07/19/2023 08:21:13 07/18/20 23 07/19/2023 CBC WITH DIFFE RENTI AL/PL ATELE T lymphs (absolute) 2.3 x10e3 /uL 0.7-3. 1 Not Available [facility] ([facility]) [address] [facility], [place], [address], 07/19/2023 08:21:13 07/18/20 23 07/19/2023 CBC WITH DIFFE RENTI AL/PL ATELE T monocytes(ab solute) 0.6 x10e3 /uL 0.1-0. 9 Not Available [facility] ([facility]) [address] [facility], [place], [address], 07/19/2023 08:21:13 07/18/20 23 07/19/2023 CBC WITH DIFFE RENTI AL/PL ATELE T eos (absolute) 0.3 x10e3 /uL 0.0-0. 4 Not Available [facility] ([facility]) [address] [facility], [place], [address], 07/19/2023 08:21:13 07/18/20 23 07/19/2023 CBC WITH DIFFE RENTI AL/PL ATELE T baso (absolute) 0.0 x10e3 /uL 0.0-0. 2 Not Available [facility] ([facility]) [address] [facility], [place], [address], 07/19/2023 08:21:13 07/18/20 23 07/19/2023 CBC WITH DIFFE RENTI AL/PL ATELE T immature granulocytes 1 % not estab. Not Available [facility] ([facility]) [address] [facility], [place], [address], 07/19/2023 08:21:13 07/18/20 23 07/19/2023 CBC WITH DIFFE RENTI AL/PL ATELE T immature grans (abs) 0.1 x10e3 /uL 0.0-0. 1 Not Available [facility] ([facility]) [address] [facility], [place], [address], 07/19/2023 08:21:13 07/18/20 23 07/19/2023 CBC WITH DIFFE RENTI AL/PL ATELE T NRBC [employer]IOR PRODUCTION SUPERVISOR Not Available [facility] ([facility]) [address] [facility], [place], [address], 07/19/2023 08:21:13 07/18/20 23 07/19/2023 CBC WITH DIFFE RENTI AL/PL ATELE T hematology comments: SENIOR PRODUCTION SUPERVISOR Not Available [facility] ([facility]) [address] [facility], [place], [address], 07/19/2023 08:21:13 07/18/20 23 07/19/2023 COMP. METAB OLIC PANEL (14) glucose 93 mg/dL 70-99 Not Available [facility] ([facility]) [address] [facility], [place], [address], 07/19/2023 08:21:15 07/18/20 23 07/19/2023 COMP. METAB OLIC PANEL (14) BUN 14 mg/dL 6-20 Not Available [facility] ([facility]) [address] [place], [address], 07/19/2023 08:21:15 07/18/20 23 07/19/2023 COMP. METAB OLIC PANEL (14) creatinine 0.77 mg/dL 0.57-1 .00 Not Available [facility] ([facility]) [address] [facility], [place], [address], 07/19/2023 08:21:15 07/18/20 23 07/19/2023 COMP. METAB OLIC PANEL (14) eGFR 110 mL/mi n/1.7 3 >59 Not Available [facility] ([facility]) [address] [place], [address], 07/19/2023 08:21:15 07/18/20 23 07/19/2023 COMP. METAB OLIC PANEL (14) BUN/creatini ne ratio 18 9-23 Not Available [facility] ([facility]) [address] [facility] [place], [address], 07/19/2023 08:21:15 07/18/20 23 07/19/2023 COMP. METAB OLIC PANEL (14) sodium 141 mmol/ L 134-14 4 Not Available [facility] ([facility]) [address] [place], [address], 07/19/2023 08:21:15 07/18/20 23 07/19/2023 COMP. METAB OLIC PANEL (14) potassium 4.1 mmol/ L 3.5-5. 2 Not Available [facility] ([facility]) [address] [facility] [place], [address], 07/19/2023 08:21:15 07/18/20 23 07/19/2023 COMP. METAB OLIC PANEL (14) chloride 104 mmol/ L 96-106 Not Available [facility] ([facility]) [address] [facility] [place], [address], 07/19/2023 08:21:15 07/18/20 23 07/19/2023 COMP. METAB OLIC PANEL (14) carbon dioxide, total 21 mmol/ L 20-29 Not Available [facility] ([facility]) [address] [facility] [place], [address], 07/19/2023 08:21:15 07/18/20 23 07/19/2023 COMP. METAB OLIC PANEL (14) calcium 9.4 mg/dL 8.7-10 .2 Not Available [facility] ([facility]) [address] [facility] [place], [address], 07/19/2023 08:21:15 07/18/20 23 07/19/2023 COMP. METAB OLIC PANEL (14) protein, total 7.2 g/dL 6.0-8. 5 Not Available [facility] ([facility]) [address] [facility] [place], [address], 07/19/2023 08:21:15 07/18/20 23 07/19/2023 COMP. METAB OLIC PANEL (14) albumin 4.3 g/dL 4.0-5. 0 Not Available [facility] ([facility]) [address] [facility], [place], [address], 07/19/2023 08:21:15 07/18/20 23 07/19/2023 COMP. METAB OLIC PANEL (14) globulin, total 2.9 g/dL 1.5-4. 5 Not Available [facility] ([facility]) [address] [facility], [place], [address], 07/19/2023 08:21:15 07/18/20 23 07/19/2023 COMP. METAB OLIC PANEL (14) A/G ratio 1.5 1.2-2. 2 Not Available [facility] ([facility]) [address] [facility], [place], [address], 07/19/2023 08:21:15 07/18/20 23 07/19/2023 COMP. METAB OLIC PANEL (14) bilirubin, total 0.2 mg/dL 0.0-1. 2 Not Available [facility] ([facility]) [address] [facility], [place], [address], 07/19/2023 08:21:15 07/18/20 23 07/19/2023 COMP. METAB OLIC PANEL (14) alkaline phosphatase 80 IU/L 44-121 Not Available [facility]) [address] [facility], [place], [address], 07/19/2023 08:21:15 07/18/20 23 07/19/2023 COMP. METAB OLIC PANEL (14) AST (SGOT) 14 IU/L 0-40 Not Available [facility] ([facility]) [address] [place], [address], 07/19/2023 08:21:15 07/18/20 23 07/19/2023 COMP. METAB OLIC PANEL (14) ALT (SGPT) 10 IU/L 0-32 Not Available [facility] ([facility]) [address] [place], [address], 07/19/2023 08:21:15 08/08/2008/09/2023 FE+TI BC+FE R iron bind.cap.(TI BC) 369 ug/dL 250-45 0 Not Available [facility] ([facility]) [address] [place], [address], 08/09/2023 07:14:21 08/08/2008/09/2023 FE+TI BC+FE R UIBC 334 ug/dL 131-42 5 Not Available [facility] ([facility]) [address] [place], [address], 08/09/2023 07:14:21 08/08/2008/09/2023 FE+TI BC+FE R iron 35 ug/dL 27-159 Not Available [facility] ([facility]) [address] [place], [address], 08/09/2023 07:14:21 08/08/2008/09/2023 FE+TI BC+FE R iron saturation 9 % 15-55 alert low Not Available [facility] ([facility]) [address] [place], [address], 08/09/2023 07:14:21 08/08/2008/09/2023 FE+TI BC+FE R ferritin 53 NG/mL 15-150 Not Available [facility] ([facility]) [address] [place], [address], 08/09/2023 07:14:21 08/08/2008/09/2023 TSH+F REE T4 TSH 0.925 uIU/m L 0.450- 4.500 Not Available [facility] ([facility]) [address] [facility] [place], [address], 08/09/2023 07:14:22 08/08/2008/09/2023 TSH+F REE T4 T4,free(dire ct) 0.96 NG/dL 0.82-1 .77 Not Available [facility] ([facility]) [address] [facility], [place], [address], 08/09/2023 07:14:22 08/08/2008/09/2023 CBC WITH DIFFE RENTI AL/PL ATELE T WBC 7.7 x10e3 /uL 3.4-10 .8 Not Available [facility] ([facility]) [address] [place], [address], 08/09/2023 07:14:24 08/08/2008/09/2023 CBC WITH DIFFE RENTI AL/PL ATELE T RBC 4.90 x10e6 /uL 3.77-5 .28 Not Available [facility] ([facility]) [address] [facility], [place], [address], 08/09/2023 07:14:24 08/08/2008/09/2023 CBC WITH DIFFE RENTI AL/PL ATELE T hemoglobin 13.2 g/dL 11.1-1 5.9 Not Available [facility] ([facility]) [address] [place], [address], 08/09/2023 07:14:24 08/08/2008/09/2023 CBC WITH DIFFE RENTI AL/PL ATELE T hematocrit 40.4 % 34.0-4 6.6 Not Available [facility] ([facility]) [address] [place], [address], 08/09/2023 07:14:24 08/08/2008/09/2023 CBC WITH DIFFE RENTI AL/PL ATELE T MCV 82 fL 79-97 Not Available [facility] ([facility]) [address] [facility], [place], [address], 08/09/2023 07:14:24 08/08/2008/09/2023 CBC WITH DIFFE RENTI AL/PL ATELE T MCH 26.9 pg 26.6-3 3.0 Not Available [facility] ([facility]) [address] [facility], [place], [address], 08/09/2023 07:14:24 08/08/2008/09/2023 CBC WITH DIFFE RENTI AL/PL ATELE T MCHC 32.7 g/dL 31.5-3 5.7 Not Available [facility] ([facility]) [address] [facility], [place], [address], 08/09/2023 07:14:24 08/08/2008/09/2023 CBC WITH DIFFE RENTI AL/PL ATELE T RDW 13.3 % 11.7-1 5.4 Not Available [facility] ([facility]) [address] [facility], [place], [address], 08/09/2023 07:14:24 08/08/2008/09/2023 CBC WITH DIFFE RENTI AL/PL ATELE T platelets 298 x10e3 /uL 150-45 0 Not Available [facility] ([facility]) [address] [facility], [place], [address], 08/09/2023 07:14:24 08/08/2008/09/2023 CBC WITH DIFFE RENTI AL/PL ATELE T neutrophils 68 % not estab. Not Available [facility] ([facility]) [address] [facility], [place], [address], 08/09/2023 07:14:24 08/08/2008/09/2023 CBC WITH DIFFE RENTI AL/PL ATELE T lymphs 23 % not estab. Not Available [facility] ([facility]) [address] [facility], [place], [address], 08/09/2023 07:14:24 08/08/2008/09/2023 CBC WITH DIFFE RENTI AL/PL ATELE T monocytes 6 % not estab. Not Available [facility] ([facility]) [address] [facility], [place], [address], 08/09/2023 07:14:24 08/08/2008/09/2023 CBC WITH DIFFE RENTI AL/PL ATELE T eos 3 % not estab. Not Available [facility] ([facility]) [address] [facility], [place], [address], 08/09/2023 07:14:24 08/08/2008/09/2023 CBC WITH DIFFE RENTI AL/PL ATELE T basos 0 % not estab. Not Available [facility] ([facility]) [address] [facility], [place], [address], 08/09/2023 07:14:24 08/08/2008/09/2023 CBC WITH DIFFE RENTI AL/PL ATELE T immature cells SENIOR PRODUCTION SUPERVISOR Not Available [facility] ([facility]) [address] [facility], [place], [address], 08/09/2023 07:14:24 08/08/2008/09/2023 CBC WITH DIFFE RENTI AL/PL ATELE T neutrophils (absolute) 5.2 x10e3 /uL 1.4-7. 0 Not Available [facility] ([facility]) [address] [facility], [place], [address], 08/09/2023 07:14:24 08/08/2008/09/2023 CBC WITH DIFFE RENTI AL/PL ATELE T lymphs (absolute) 1.8 x10e3 /uL 0.7-3. 1 Not Available [facility] ([facility]) [address] [place], [address], 08/09/2023 07:14:24 08/08/20 23 08/09/2023 CBC WITH DIFFE RENTI AL/PL ATELE T monocytes(ab solute) 0.5 x10e3 /uL 0.1-0. 9 Not Available [facility] ([facility]) [address] [facility], [place], [address], 08/09/2023 07:14:24 08/08/2008/09/2023 CBC WITH DIFFE RENTI AL/PL ATELE T eos (absolute) 0.2 x10e3 /uL 0.0-0. 4 Not Available [facility] ([facility]) [address] [facility], [place], [address], 08/09/2023 07:14:24 08/08/2008/09/2023 CBC WITH DIFFE RENTI AL/PL ATELE T baso (absolute) 0.0 x10e3 /uL 0.0-0. 2 Not Available [facility] ([facility]) [address] [facility], [place], [address], 08/09/2023 07:14:24 08/08/2008/09/2023 CBC WITH DIFFE RENTI AL/PL ATELE T immature granulocytes 0 % not estab. Not Available [facility] ([facility]) [address] [facility], [place], [address], 08/09/2023 07:14:24 08/08/2008/09/2023 CBC WITH DIFFE RENTI AL/PL ATELE T immature grans (abs) 0.0 x10e3 /uL 0.0-0. 1 Not Available [facility] ([facility]) [address] [facility], [place], [address], 08/09/2023 07:14:24 08/08/2008/09/2023 CBC WITH DIFFE RENTI AL/PL ATELE T NRBC SENIOR PRODUCTION SUPERVISOR Not Available [facility] ([facility]) [address] [place], [address], 08/09/2023 07:14:24 08/08/20 23 08/09/2023 CBC WITH DIFFE RENTI AL/PL LATONYALE T hematology comments: SENIOR PRODUCTION SUPERVISOR Not Available [facility] ([facility]) [address] [facility], [place], [address], 08/09/2023 07:14:24 08/08/20 23 08/09/2023 COMP. METAB OLIC PANEL (14) glucose 99 mg/dL 70-99 Not Available [facility] ([facility]) [address] [facility], [place], [address], 08/09/2023 07:14:25 08/08/2008/09/2023 COMP. METAB OLIC PANEL (14) BUN 17 mg/dL 6-20 Not Available [facility] ([facility]) [address] [facility], [place], [address], 08/09/2023 07:14:25 08/08/20 23 08/09/2023 COMP. METAB OLIC PANEL (14) creatinine 0.83 mg/dL 0.57-1 .00 Not Available [facility] ([facility]) [address] [facility], [place], [address], 08/09/2023 07:14:25 08/08/20 23 08/09/2023 COMP. METAB OLIC PANEL (14) eGFR 100 mL/mi n/1.7 3 >59 Not Available [facility] ([facility]) [address] [facility], [place], [address], 08/09/2023 07:14:25 08/08/20 23 08/09/2023 COMP. METAB OLIC PANEL (14) BUN/creatini ne ratio 20 - Not Available [facility]) [address] [place], [address], 08/09/2023 07:14:25 08/08/20 23 08/09/2023 COMP. METAB OLIC PANEL (14) sodium 144 mmol/ L 134-14 4 Not Available [facility] ([facility]) [address] [facility] [place], [address], 08/09/2023 07:14:25 08/08/20 23 08/09/2023 COMP. METAB OLIC PANEL (14) potassium 4.4 mmol/ L 3.5-5. 2 Not Available [facility] ([facility]) [address] [facility] [place], [address], 08/09/2023 07:14:25 08/08/20 23 08/09/2023 COMP. METAB OLIC PANEL (14) chloride 105 mmol/ L 96-106 Not Available [facility] ([facility]) [address] [facility] [place], [address], 08/09/2023 07:14:25 08/08/20 23 08/09/2023 COMP. METAB OLIC PANEL (14) carbon dioxide, total 22 mmol/ L 20-29 Not Available [facility] ([facility]) [address] [facility] [place], [address], 08/09/2023 07:14:25 08/08/2008/09/2023 COMP. METAB OLIC PANEL (14) calcium 9.2 mg/dL 8.7-10 .2 Not Available [facility] ([facility]) [address] [place], [address], 08/09/2023 07:14:25 08/08/2008/09/2023 COMP. METAB OLIC PANEL (14) protein, total 6.9 g/dL 6.0-8. 5 Not Available [facility] ([facility]) [address] [place], [address], 08/09/2023 07:14:25 08/08/20 23 08/09/2023 COMP. METAB OLIC PANEL (14) albumin 4.3 g/dL 4.0-5. 0 Not Available [facility] ([facility]) [address] [facility] [place], [address], 08/09/2023 07:14:25 08/08/20 23 08/09/2023 COMP. METAB OLIC PANEL (14) globulin, total 2.6 g/dL 1.5-4. 5 Not Available [facility] ([facility]) [address] [facility], [place], [address], 08/09/2023 07:14:25 08/08/20 23 08/09/2023 COMP. METAB OLIC PANEL (14) A/G ratio 1.7 1.2-2. 2 Not Available [facility] ([facility]) [address] [facility], [place], [address], 08/09/2023 07:14:25 08/08/20 23 08/09/2023 COMP. METAB OLIC PANEL (14) bilirubin, total <0.2 mg/dL 0.0-1. 2 Not Available [facility] ([facility]) [address] [facility], [place], [address], 08/09/2023 07:14:25 08/08/20 23 08/09/2023 COMP. METAB OLIC PANEL (14) alkaline phosphatase 80 IU/L 44-121 Not Available [facility] [address] [facility], [place], [address], 08/09/2023 07:14:25 08/08/20 23 08/09/2023 COMP. METAB OLIC PANEL (14) AST (SGOT) 13 IU/L 0-40 Not Available [facility] ([facility]) [address] [facility], [place], [address], 08/09/2023 07:14:25 08/08/20 23 08/09/2023 COMP. METAB OLIC PANEL (14) ALT (SGPT) 14 IU/L 0-32 Not Available [facility] ([facility]) [address] [facility], [place], [address], 08/09/2023 07:14:25 08/08/20 23 08/09/2023 VITAM IN B12 AND FOLAT E vitamin B12 437 pg/mL 232-12 45 Not Available [facility] ([facility]) [address] [facility], [place], [address], 08/09/2023 07:14:26 08/08/20 23 08/09/2023 VITAM IN B12 AND FOLAT E folate (folic acid), serum 13.0 NG/mL >3.0 A serum folat e sandra ntrat ion of less than 3.1 ng/mL is consi dered to repre sent clini gisell defic iency . Not Available [facility] ([facility]) [address] [facility], [place], [address], 08/09/2023 07:14:26 08/08/20 23 08/09/2023 VITAM IN [...] and D. Alicia avalos [place]: [facility] . 2. Aiden rivera MF, Farrah dixon [place], Hillary off-F errjaelyn i NUÑEZ, et al. Evalu ation , treat ment, and preve ntion of vitam in D defic iency : an Endoc rine Socie ty clini gisell pract ice guide line. JCEM. 2010; 96(7) :1911 -30. Not Available [facility] ([facility]) [address] [facility], [place], [address], 08/09/2023 07:14:27 08/08/20 23 08/09/2023 MAGNE SIUM magnesium 1.9 mg/dL 1.6-2. 3 Not Available [facility] ([facility]) [address] [facility], [place], [address], 08/09/2023 07:14:28 05/26/20 23 05/26/2023 PAP nap (PROC ) No observ ation record ed. [email or web address] Not Available 2022 09:46:47 Result Notes None recorded. Procedures Surgical History Date Name Laterality Status Provider Name and Address Organization Details Recorded Time 03/18/2020 Date of Last Pap Smear completed MARGARETBart MELTON [facility] & [place] 04/05/2023 13:05:37 10/30/2011 Tonsillecto my/Adenoide ctomy completed [facility] JONES MELTON [facility] [place] 04/05/2023 13:05:37 Imaging Results None recorded. Procedure [...] propionate 50 mcg/actuati on nasal spray,suspe nsion [place] 1 spray every day by intranasa l [...] Updated DateTime 3 157.48 cm 50.1 kg/m2 365626. 31 g 97.7 [degF] 98 % 98 % 105 /min 92/66 mm[Hg] MARGARET MELTON [facility] & [place] 3 14:59:03 Date Recorded Body height Body mass index (BMI) Body weight Body temperature Oxygen saturation Oxygen saturation in Arterial blood by Pulse oximetry Heart rate Systolic And Diastolic Provider Name and Address Organization Details Last Updated DateTime 3 157.48 cm 47.6 kg/m2 848820. 42 g 98.2 [degF] 99 % 99 % 103 /min 124/86 mm[Hg] MARGARET MELTON [facility] [place] 3 15:58:53 Date Recorded Body height Body weight Body mass index (BMI) Body temperature Oxygen saturation Oxygen saturation in Arterial blood by Pulse oximetry Heart rate Systolic And Diastolic Provider Name and Address Organization Details Last Updated DateTime 3 157.48 cm 373765. 72 g 49.9 kg/m2 97.7 [degF] 100 % 100 % 128 /min 100/76 mm[Hg] MARGARET MELTON [facility] [place] 3 10:09:53 Date Recorded Body height Body mass index (BMI) Body weight Body temperature Oxygen saturation Oxygen saturation in Arterial blood by Pulse oximetry Heart rate Systolic And Diastolic Provider Name and Address Organization Details Last Updated DateTime 3 157.48 cm 51.9 kg/m2 929081. 87 g 98 [degF] 98 % 98 % 91 /min 127/74 mm[Hg] Agnes MELTON [facility] [place] 3 08:43:53 Date Recorded Body height Body mass index (BMI) Body weight Body temperature Oxygen saturation Oxygen saturation in Arterial blood by Pulse oximetry Heart rate Systolic And Diastolic Provider Name and Address Organization Details Last Updated DateTime 157.48 cm 51 kg/m2 374872. 27 g 97.5 [degF] 99 % 99 % 129 /min 124/90 mm[Hg] Dheeraj MULTANI [facility] [place] 15:59:39 Social History Question Answer Notes LastModified by Photos I Like Details LastModified Time Tobacco Smoking Status Former Smoker MARGARET hassan, [facility] [place] 04/05/2023 13:05:37 Do You Have An Advance [...] Functional Status Question Answer Note LastModified by [employer] Like Details LastModified Time Do you use any illicit or recreational drugs? Yes Information not available 04/05/2023 Do you or have you ever used any other forms of tobacco or nicotine? Yes [email or web address] Information not available 06/02/2023 What is your level of alcohol consumption? Occasional Information not available 04/05/2023 Do you or have you ever used smokeless tobacco? 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 Current user of electronic cigarettes [email or web address] Information not available 06/02/2023 What is your exercise level? Moderate Information not available 04/05/2023 Mental Status Question Answer Note LastModified by Organization D etails LastModified Time Do you feel stressed (tense, restless, nervous, or anxious, or unable to sleep at night)? [id number] Information not available 04/05/2023 Family History Relationship [...] SNOMED-CT Code Diagnosis ICD10 Code Diagnosis Note [id number] Unruly Bustillo in, INSTRUCTOR TAP DANCING [facility] [address] [facility] [address] [place] [address] 04/05/2023 13:02:12 04/05/2023 13:39:51 Adult health examination 575308891 Z00.00 Will check complete bloodwork. Will call with results.Co unseled on dietary modificati ons and healthy eating habits.Cou nseled on decreasing stress levels,Rec ommend yearly eye examsRecom mend regular dental exams/ashely rnings. Thyroid di sorder screening 159915240 Z13.29 Mixed anxi ety and depressive disorder 850009546 F41.8 Screening for malignant neoplasm of cervix 354573242 Z12.[address] James Cowart. History of ectopic pregnancie s. She is up to date on preventati ve screenings . Excessive daytime sleepiness with sleep paralysis 881944362 G47.53 Patient has a history of sleep paralysis. History of snoring. History of restless sleep patterns. Body mass index 40+ - severely obese 425181678 Z68.43 Patient is exercising . Patient is attempting to make dietary modificati ons. [id number] Unruly Bustillo in[address] [place] [address] 04/06/2023 08:02:02 04/06/2023 08:41:28 [id number] Tramaine Winkler MD [address] [place] [address] 04/26/2023 12:57:14 04/26/2023 13:15:14 Obstructive sleep apnea syndrome 37394054 G47.33 papnap...t itration to autopap 6-20 cm H2O. Obesity 805791602 E66.9 Patient aware that weight loss will improve not eliminate her need for auto PAP. [id number] Unruly Bustillo in[address] [place] [address] 06/02/2023 14:51:05 06/02/2023 15:15:39 Mixed anxiety and depressive disorder 948748305 F41.8 Patient is tolerating medication . Will refill.Danny l see back in 1 month.Will check vitamin levels, CBC, CMP, and iron panel at that time. [id number] Unruly Bustlilo in[address] [place] [address] 07/18/2023 15:54:45 07/18/2023 16:18:02 Viral upper respiratory tract infection 940933989 J06.9 Humidifier at night.Use medication as directed.O TC meds for cough.Foll ow up if no improvemen t. Iron defic iency anemia 71375480 D50.9 Patient finished her Iron supplement s.Will check levels today. Will call with results. Body mass index 30+ - obesity 379139952 Z68.42 Will start Wegovy.Danny l see back in 1 month for weight check.Will increase as tolerated. [id number] [facility] [address] [place] [address] [address] [place] [address] 08/08/2023 09:58:51 08/08/2023 11:08:21 Tremor 42655299 R25.1 Will check lab work. Will call with results. Iron defic iency anemia 26792388 D50.9 Mixed anxi ety and depressive disorder 947821909 F41.8 Patient is reacting to the medication [...] do genetic testing at patient request today. [id number] [facility] [address] [facility] [address] [place] [address] 08/23/2023 15:37:17 08/23/2023 16:37:13 Mixed anxiety and depressive disorder 525117999 F41.8 Counseled in depth on symptoms of concern and when to go to ER. at chairside. Counseled on concerns and behavior changes and when to reach out for help. Support system is intact at home.Jose Luis knight on genetic testing results.Se e patient back in 1 month.Catrina ent is tolerating the Duloxetine 60mg. Vitamin D deficiency 347 67692 E55.9 [id number] Aden Petty MD [facility] [address] [facility] [address] [place] [address] 08/23/2023 08:31:40 08/23/2023 09:08:39 Iron deficiency anemia 85199851 D50.9 Labs on August 08, 2023 with magnesium at 1.9. Vitamin-D level low at 22.4. B12 437. Folic acid 13. Normal liver function testing. Normal renal function. Normal electrolyt es. White blood cell count 7.7. Red blood cell count 4.90 hemoglobin 13.2 and hematocrit 40.4. MCV 82. Platelet count 988231. Normal cell differenti al. TSH 0.9. T4 [...] response to increasing PO supplement ation. Headache 03855582 R51.9 Concern for possible migraine. Will follow-up [...] ID Guarantor Name 10/01/2023 1 [place] [id number] A Leticia Wilkins [id number] Leticia Vo Notes Date Note Type Note Provider Name and Address Organization Details Recorded Time 06/02/2023 text/html ROS as noted in the HPI patient presents to clinic for medication update. She was placed inpatient [facility] and was treated by Dr. Rankin. She states her prozac was causing hallucinations. She was started on seroquel and wellbutrin. She is tolerating well. She states she feels so much better. She does not have a follow up scheduled with Dr. Rankin. Unruly Rosen, INSTRUCTOR TAP DANCING [address], [place], [address], [place] - [facility] & [place] 06/02/2023 15:11:10 07/18/2023 text/html ROS as noted in the HPI patient presents to clinic for follow up. She states she is tolerating her medication. No complaints. She reports some increased sinus drainage and her left ear is itchy. Denies any fever. Reports a dry cough. Denies any sore throat. Unruly Rosen, MICA [address] , [place], [address], [facility] & [place] 07/18/2023 16:25:02 08/08/2023 text/html ROS as noted in the HPI patient presents to clinic for an intermittent tremor. She has been titrating the Seroquel over the last week since we spoke. She denies any syncopal episodes. Denies any chest pain. Denies any thoughts of self harm or homicidal thoughts. Denies any hallucinations today. Unruly Rosen APRN [address] , [place], [address], [facility] & [place] 08/08/2023 14:26:50 08/23/2023 text/html ROS as noted in the HPI patient presents to clinic for follow up. She is tolerating the Duloxetine. She denies suicidal or homicidal thoughts. She states that the tremor is completely gone. She states she sees hematology October 04. Unruly Rosen, MICA [address] , [place], [address], [facility] & [place] 08/23/2023 16:18:32 08/23/2023 text/html 23 yo F [...] and hematocrit 40.4. MCV 82. Platelet count 390600. Normal cell differential. TSH 0.9. T4 0.96. [...] to increasing PO supplementation. Aden Petty MD [address], [place], [address], [facility] [place] & [place] 08/23/2023 09:44:31 OBGyn Episode No OBEpisode recorded.
--- OUTSIDE RECORDS SUMMARY | 2025-05-22 13:10 | XMS_ITS | Clinical Summary ---
Author Organization Healthcare Address [address] [place] [address] Care Team Providers Care Agriscience Teacher Name Role Phone Stephanie Allen Primary Care Provider [phone] Allergies Active Allergy Reactions Criticality Noted Date [...] Team Description 02/21/2025 Telephone Obstetrics & Gynecology [facility] [place] [address] James Cowart MD from Last [...] 19+ 3-dose series) 2017 [facility]-Pap Smear 2019 [id number] Vaccine ( - season) 2024 [facility]-Influenza Vaccine [...] Reactive Non Reactive 11/01/2024 1:54 PM EST [facility] Comment:Screening for HIV 1 & 2 antibodies, and P24 antigen is NONREACTIVE. No confirmatory testing is required. Blood Venous blood specimen / Unknown Venipuncture / Unknown 11/01/2024 10:24 AM EST 11/01/2024 12:52 PM EST Result Santino Cowart MD LAB BLOOD ORDERABLES Final Resu lt Performing Organization Address City/[facility]/ZIP Co de Phone Number [facility] [address] [place] [address] * Hepatitis C Antibody w/Reflex to HCV Quant PCR (11/01/2024 10:24 AM EST) Hepatitis C Antibody Negative Negative 11/01/2024 1:31 PM EST [facility] Blood Venous blood specimen / Unknown Venipuncture / Unknown 11/01/2024 10:24 AM EST 11/01/2024 12:52 PM EST Result Santino Cowart MD LAB BLOOD ORDERABLES Final Resu lt Performing Organization Address City/[facility]/ZIP Co de Phone Number [facility] [address] [place] [address] from Last 3 Months or Most Recently Relevant to Health Maintenance Additional Health Concerns Active Problems Noted Date Diagnosed Date CPM S24 PP LABOR (OBSTETRICS) 11/19/2024 Insurance [place] Care Teams Agriscience Teacher Relationship Specialty Start Date End Date Stephanie Allen PA [address] [place] [address] PCP - General 08/30/24
--- OUTSIDE RECORDS SUMMARY | 2025-05-22 13:10 | XMS_ITS | Clinical Summary ---
Author Organization [employer] ([place], [place], [place], [place]) Address [address] [place] [address] Care Team Providers Care Criminology Professor Name Role Phone Stephanie Allen PA-C Primary Care Provider [phone] Allergies Active Allergy Reactions Criticality Noted Date [...] Date Deyvi rded Speak language other than Syrian at home Not on file 09/01/2024 Want help with school or training Not on file 09/01/2024 Substance Use Answer Date Recorded Used prescription meds for non-medical reasons N ot on file 09/01/2024 Used illegal drugs past 12 months Not on file 09/01/2024 Comments No Sex and Gender Information Value Date Recorded Sex Assigned at Not on file 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
--- OUTSIDE RECORDS SUMMARY | 2025-05-22 13:10 | XMS_ITS | Encounter Summary ---
Author Organization Healthcare Address [address] [place] [address] Care Team Providers Care Ship Liner Name Role Phone None, None Primary Care Provider [phone] Stephanie Allen Primary Care Provider [phone] Encounter Details Date Type Department Care Team (Late st Contact Info) Description 10/12/2022 Outside Procedure External Location [address] [place] [address] James Cowart MD [address] [place] [address] Social History Tobacco Use Types [...] AM EST Narrative 10/12/2022 8:21 [place] [address] Name: LETICIA PENNINGTON Exam Date: 10/12/2022 : 2000 Age 22 Gender: F Physician: JAMES COWART Facility: [facility] Facility HSV: Outpatient Exam: HYSTEROSALPINGOGRAM FLUOROSCOPY TIME [...] Thank you for referring LETICIA PENNINGTON to [facility]. Legally authenticated by POPE ANA Baptiste 2022-10-12 08:09:41 Procedure Note Provider, Generic [place] - 10/12/2022 [place] [address] Name: LETICIA PENNINGTON Exam Date: 10/12/2022 : 2000 Age 22 Gender: F Physician: JAMES COWART Facility: [facility] Facility HSV: Outpatient Exam: HYSTEROSALPINGOGRAM FLUOROSCOPY TIME [...] you for referring LETICIA PENNINGTON to [facility]. Legally authenticated by POPE ANA Baptiste 2022-10-12 08:09:41 James Cowart MD IMG FLUOROSCOPY PROCEDURES Gayle l Result documented in this encounter Visit Diagnoses Not on filedocumented in this encounter Care Teams Ship Liner Relationship Specialty Start Date End Date None, None [address] [place] [address] PCP - General NONE FOUND 09/05/22 05/23/24 Stephanie Allen PA [address] [place] [address] PCP - General 08/30/24 documented as of this encounter
--- OUTSIDE RECORDS SUMMARY | 2025-05-22 13:10 | XMS_ITS | Clinical Summary ---
Author Organization [facility] Address [address] [place] [address] Care Team Providers Care Magazine Publisher Name Role Phone NancyStacy barker Primary Care Provider [phone] Allergies Active Allergy Reactions Criticality Noted Date Comments Propranolol Rash Low 04/11/2024 Medications amitriptyline (ELAVIL) 25 MG tabletIndicatio ns:Severe episode of recurrent major depressive disorder, with psychotic features Take 1 tablet by mouth Every Night. 90 tablet 1 12/14/2023 Active dilTIAZem XR (DILACOR XR) 120 MG 24 hr capsule Take 1 capsule by mouth Daily. 30 capsule 11 04/11/2024 Active buPROPion XL (WELLBUTRIN XL) 150 MG 24 hr tabletIndicatio ns:Severe episode of recurrent major depressive disorder, with psychotic features TAKE ONE TABLET BY MOUTH ONCE A DAY 30 tablet 01/02/2025 Active Active Problems Problem Noted Date Diagnosed Date Severe episode of recurrent major depressive disorder, with psychotic features 12/14/2023 Assessment & Plan (12/14/2023 11:58 AM EST): Patient's depression is a recurrent episode that is severe without psychosis. Depression is in partial remission and improving with treatment. Plan: Continue current medication therapy Followup in 3 months. Chest pain 09/14/2023 Headache 09/14/2023 Near syncope 09/14/2023 Major depressive disorder, recurrent, mild 09/14 Assessment & Plan (09/14/2023 12:21 PM EST): Patient's depression is recurrent and is moderate with psychosis. Their depression is currently active and the condition is worsening. This will be reassessed in 4 weeks. F/U as described:patient was prescribed an antidepressant medicine. - She is also following with a therapist - [facility] testing results requested from prior PCP. - Tapering off of Cymbalta. Starting Wellbutrin. Starting Elavil for sleep. Class 3 severe obesity witho ut serious comorbidity with body mass index (BMI) of 50.0 to 59.9 in adult 09/14/2023 Assessment & Plan (12/14/2023 11:58 AM EST): Patient's (Body mass index is 52.86 kg/m .) indicates that they are morbidly/severely obese (BMI > 40 or > 35 with obesity - related health condition) with health conditions that include none . Weight is newly identified. BMI is above average; BMI management plan is completed. Info for low calorie, low carb based diet program, portion control, increasing exercise, and pharmacologic options including GLP-1 . . She has failed multiple attempts at weight loss despite calorie restriction/counting, exercising regularly. Per guidelines, She is a candidate for a GLP-1 agonist to for weight loss due to their BMI. She has no personal history of pancreatitis, no family history of MEN syndrome or medullary thyroid cancer. Possible side effects including nausea, bloating, other GI upset and rarely pancreatitis were discussed. She was advised to call the office with any symptoms or concerns. Assessment & Plan (09/14/2023 12:20 PM EST): Patient's (Body mass index is 51.4 kg/m .) indicates that they are morbidly/severely obese (BMI > 40 or > 35 with obesity - related health condition) with health conditions that include none . Weight is newly identified. BMI is above average; BMI management plan is completed. Info for low calorie, low carb based diet program, portion control, and increasing exercise. Iron deficiency anemia 09/14/2023 Assessment & Plan (09/14/2023 12:21 PM EST): Following with hematology plans for iron infusions Other ectopic without intrauterine pre gnancy 07/05/2022 Threatened 03/18/2022 Left ovarian without intrauterine preg brittney 03/14/2022 Resolved Problems Problem Noted Date Diagnosed Date Resolved Date Acute viral syndrome 09/14/2023 023 Immunizations Immunization Administration Dates Next Due Flublok 18+yrs 09/15/2020 HPV Quadrivalent 11/19/2007,08/08/2007 Hepatitis A 05/17/2018 Hpv9 12/14/2023 Influenza Seasonal Injectable 08/31/2010, 007 Tdap 10/30/2018 Family History 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 Relation Name Comments Cancer Father Diabetes Father Other Father Renal Cell Carc inoma Cancer Maternal Grandfather Prostate cancer Maternal Grandfather COPD Maternal Grandmother Heart disease Mother Hyperlipidemia Mother Hypertension Mother Osteoporosis Paternal Aunt Cancer Paternal Grandfather Diabetes Paternal Grandmother Osteoporosis Paternal Uncle 1 Osteoporosis Paternal Uncle 2 Osteoporosis Paternal Uncle 3 Osteoporosis Paternal Uncle 4 Thyroid disease Sister Relation Name Status Comments Father Maternal Grandfather Alive Maternal Grandmother Alive Mother Alive Paternal Aunt Alive Paternal Grandfather Paternal Grandmother Paternal Uncle 1 Alive Paternal Uncle 2 Alive Paternal Uncle 3 Alive Paternal Uncle 4 Alive Sister Alive Social History Tobacco Use Types Packs/Day Years Used Date Smoking Tobacco: Never Passive Smoke Exposure: Never Smokeless Tobacco: Never Tobacco Cessation:Counseling Given: Not Answered Alcohol Use Standard Drinks/Week Comments Never 0 (1 standard drink = 0.6 oz pur e alcohol) Abuse Screen Answer Date Recorded Feels Unsafe at Home or Work/School no 02/05/2024 Feels Threatened by Someone no 0405/2024 Does Anyone Try to Keep You From Having Contact with Others or Doing Things Outside Your Home? no 02/05/2024 Physical Signs of Abuse Present no 02/05/2024 Housing Stability Answer Date Recorded Current Living Arrangements Not on file 07/30 Potentially Unsafe Housing Conditions Not on jamey e 08/11/2023 Family and Community Support Answer Garcia e Recorded Help with Day-to-Day Activities Not on file 08/11/2023 Lonely or Isolated Not on file 08/11/2023 Employment Answer Date Recorded Do you want help finding or keeping work or a elijah b? Not on file 08/11/2023 Disabilities Answer Date Recorded Concentrating, Remembering, or Making Decisions Difficulty Not on file 08/11/2023 Doing Errands Independently Difficulty Not on fi le 08/11/2023 Education Answer Date Recorded Help with school or training? Not on file Preferred Language Not on file 08/11/2023 PHQ-2 Answer Date Recorded Retired PHQ-9: Brief Depression Severity Measure Score 0 09/14/2023 Comments No Sex and Gender Information Value Date Recorded Sex Assigned at Not on file Legal Sex Female 12:23 PM EDT Gender Identity Not on file Sexual Orientation Not on file Last Filed Vital Signs Vital Sign Reading Time Taken Comments Blood Pressure 116/83 04/11/2024 10:45 AM EDT Pulse 82 06/06/2024 8:28 AM EDT Temperature 36.6 C (97.8 F) 02/07/2024 3:32 PM EDT Respiratory Rate 20 02/07/2024 3:32 PM EDT Oxygen Saturation 98% 02/07/2024 3:32 PM EDT RA Inhaled Oxygen Concentration - - Weight 133 kg (293 lb) 06/06/2024 8:28 AM EDT Height 157.5 cm (5' 2 ) 06/06/2024 8:28 AM EDT Body Mass Index 53.59 06/06/2024 8:28 AM EDT Plan of Treatment Health Maintenance Due Date Last Done Comments Annual Gynecologic Pelvic and Breast Exam 2000 ANNUAL PHYSICAL 03/07/2022 COVID-19 Vaccine ( season) 2024 INFLUENZA VACCINE 07/30/2025 09/15/2020, 08/31/2010, 08/22/2007 PAP SMEAR 10/31/2025 10/31/2022 (Patient-Reported (Performed Externally)) TDAP/TD VACCINES (2 - Td or Tdap) 10/30/2028 10/30/2018 HPV VACCINES Completed 12/14/2023, 11/19/2007, 08/08/2007 CHLAMYDIA SCREENING Discontinued 10/25/2024 HEPATITIS C SCREENING Completed 11/01/2024 , 11/01/2024 Pneumococcal Vaccine 0-49 Aged Out No longer eligible based on patient's age to complete this topic Insurance [facility] PPO Care Teams Magazine Publisher Relationship Specialty Start Date End Date Stacy Cruz DO [address] [place] [id number] PCP - General Family Medicine 09/14/23
--- OUTSIDE RECORDS SUMMARY | 2025-05-22 13:10 | XMS_ITS | Referral Summary ---
Author Organization [employer] ([place], [place], [place], [place]) Address [address] [place] [address] Care Team Providers Care Body Painter Name Role Phone Stephanie Allen PA-C Primary Care Provider [phone] Allergies Active Allergy Reactions Criticality Noted Date [...] Date Deyvi rded Speak language other than Congolese at home Not on file 09/01/2024 Want help with school or training Not on file 09/01/2024 Substance Use Answer Date Recorded Used prescription meds for non-medical reasons N ot on file 09/01/2024 Used illegal drugs past 12 months Not on file 09/01/2024 Comments No Sex and Gender Information Value Date Recorded Sex Assigned at Not on file 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
[2025-05-22 13:23] VITALS: BP 98/54; PULSE 92; RESP 15; TEMP 37.1; O2SAT 99; BMI 58.1
[2025-05-22 13:29] VITALS: BMI 57.8
[2025-05-22 14:06] LABS: Microscopic, Urine URINE MICROSCOPIC (MICROSCOPIC)
[2025-05-22 14:08] LABS: Hematocrit 35.2 % (37.0-47.0); Hemoglobin 10.7 g/dL (12.2-16.2); Immature Granulocytes % 0.5 %; Mean Corpuscular HGB Conc 30.4 g/dL (31.8-35.4); Mean Corpuscular Hemoglobin 24.3 pg (27.0-31.2); Mean Corpuscular Volume 80.0 fl (81-99); Nucleated Red Blood Cells % 0 %; Platelet Count 270 K/mm3 (142-424); Red Blood Count 4.40 M/mm3 (4.20-5.40); Red Cell Distribution Width-SD 44.6 fL; White Blood Count 11.1 K/mm3 (4.8-10.8)
[2025-05-22 14:53] LABS: Bilirubin,Urine Negative (Negative); Color,Urine YELLOW (Yellow); Glucose,Urine (UA) Negative (Negative); Ketones,Urine Negative (Negative); Leukocyte Esterase,Urine TRACE (Negative); PH,Urine 6.0 (5.0-8.5); Protein,Urine TRACE (Negative); Specific Gravity, Urine 1.025 (1.005-1.030); Urobilinogen,Urine 0.2 EU/dl (0.2)
[2025-05-22 15:28] LABS: Bacteria,Urine Trace /lpf; WBC,Urine 20-50 #/hpf (0-3)
--- NOTE | 2025-05-22 16:42 | EXP.HP ---
History of Present Illness *Admission Date: 05/22/25 *Reason for visit:: Labor *History of present illness: Leticia Moulton is a 24yo at 38 weeks and 1 day gestation who presented to labor and delivery today with leakage of fluid. Her GEOVANNY is 06/04/2025 which was based on her last menstrual period and consistent with for ultrasound. She endorses irregular painful contractions. On presentation she endorses good movement and denies vaginal bleeding. has been complicated by POTS, morbid obesity, and cervical shortening. She has had reassuring testing O+, antibody negative, rubella immune, hepatitis B negative, hepatitis C negative, RPR negative, HIV negative 1 hour GTT: 140 3-hour GTT: 98/139/106/103 GBS negative PFSH PFS Disclaimer: The information contained in this section may have been updated after the patient was seen, as this information can be updated by other users. 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 and not yet delivered in second trimester Viral upper respiratory infection Anemia Depression Anxiety Surgical History History of tonsillectomy Family History Other No significant family history Social History Smoking Status: Former smoker tobacco type: e-cigarettes smoking status stop date: 08/28/2024 alcohol intake: never current occupational status: employed and unemployed Travel in the last 8 weeks?: None household members: spouse Have you lived/traveled outside US in past 30 days?: No Contact w/someone who lives/traveled outside US past 30 days?: No Exposure to someone with infectious disease in past 14 days?: No Do you have a fever (greater than 100.4 F or 38 C)?: No Have you tested positive for COVID-19?: No Exposed to someone with COVID-19 in past 14 days?: No Do you have a sore throat?: No Do you have a cough?: No Do you have any weakness?: No Do you have any diarrhea?: No Are you experiencing any unusual bleeding?: No Do you have any muscle aches/pain?: No Do you have any abdominal pain?: No Are you experiencing loss of taste or smell?: No Other 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 Have you received the Flu Vaccine for this season: No Have you received the Pneumonia Vaccine: No Review of Systems Review of Systems Review of systems (narrative): Review of Systems Constitutional: Denies fever, chills, and sweats Eyes: Denies vision change/ pain Respiratory: Denies cough and shortness of breath Cardiovascular: Denies chest pain and lightheadedness Gastrointestinal: Admits abdominal pain with contractions. Denies nausea, vomiting. Genitourinary: Denies dysuria and incontinence Musculoskeletal: Denies shoulder pain and back pain Neurological: Denies change in speech or headaches Meds Home Medications and Allergies Home Medications ?Medication ?Instructions ?Recorded ?Confirmed ?Type vitamin no.167-folic acid 1 tab PO DAILY 12/19/24 05/21/25 History 400 mcg-dha 25 mg chewable tablet (One-A-Day ) bupropion HCl 150 mg 24 hr tablet, 150 mg PO DAILY 01/14/25 05/21/25 History extended release diltiazem HCl 120 mg 120 mg PO DAILY 03/26/25 05/21/25 History capsule,extended release 24 hr New Prescriptions to Start Prescriptions: Allergies Allergy/AdvReac Type Severity Reaction Status Date / Time propranolol Allergy Unknown Rash Verified 05/21/25 13:09 Exam Data for Last 24 hours Vital signs and Labs for Last 24 Hours: Laboratory Results - last 24 hr 05/22/25 13:55: WBC 11.1 H, RBC 4.40, Hgb 10.7 L, Hct 35.2 L, MCV 80.0 L, MCH 24.3 L, MCHC 30.4 L, RDW 15.3, Plt Count 270, MPV 10.2, Neut % (Auto) 78.8, Lymph % (Auto) 14.1, [place] % (Auto) 5.2, Eos % (Auto) 1.2, Baso % (Auto) 0.2, Neut # (Auto) 8.7 H, Lymph # (Auto) 1.6, [place] # (Auto) 0.6, Eos # (Auto) 0.1, Baso # (Auto) 0.0, Blood Type O Positive, Antibody Screen Negative 05/22/25 : Urine Color Yellow, Urine Appearance Clear, Urine pH 6.0, Ur Specific [place] 1.025, Urine Protein Trace, Urine Glucose (UA) Negative, Urine Ketones Negative, Urine Blood 2+ A, Urine Nitrate Negative, Urine Bilirubin Negative, Urine Urobilinogen 0.2, Ur Leukocyte Esterase Trace, Urine RBC 5-10, Urine WBC 20-50, Ur Squamous Epith Cells 3-5, Urine Bacteria Trace I & O for Last 24 hours: Intake & Output 05/19/25 05/20/25 05/21/25 05/22/25 23:59 23:59 23:59 23:59 Weight 316 lb Narrative: General: patient is alert oriented in no acute distress and responds appropriately to questions. HEENT: NCAT, EOMI, moist mucous membranes, neck supple with full ROM Cardiovascular: RRR +S1/S2, no murmurs or rubs Pulmonary: Clear to auscultation bilaterally, nonlabored breathing, symmetric chest rise Abdominal: Gravid abdomen appropriate for gestation. No guarding, rebound, or tenderness noted. Extremities: trace edema, no tenderness or cyanosis noted Skin: Normal turgor, intact, warm. Negative for erythema, pallor, petechia, or lesions Neurologic: Negative for sensory or motor deficit Psychiatric: Normal affect, normal thought process, good judgment and insight, no depression or anxious mood appreciated. *Routine HEENT Exam Head: Present normocephalic and atraumatic Eye: Present EOMI, PERRL and normal accommodation; Absent conjunctival icterus, scleral injection, nystagmus or exophthalmos ENT: Present mucous membranes moist *Routine Respiratory Exam Respiratory: Present CTA bilaterally, normal respiratory effort, able to speak in complete sentences and symmetric chest movement; Absent accessory muscle use, decreased breath sounds, rales, respiratory distress, wheezes, distant breath sounds or diminished air movement *Routine Cardiovascular Exam Cardiovascular: Present RRR, Normal S1 and Normal S2; Absent murmur or gallop *Routine Abdominal Exam Abdominal: Present soft and normoactive bowel sounds; Absent tenderness, distended, rebound or guarding *Routine Rectal Exam Rectal:: deferred *Routine Genitalia Exam Genitalia:: normal female Assessment and Plan *Assessment and plan (1) Obesity, morbid, BMI 50 or higher: Status: Acute Category: Medical Code(s): E66.01 - Morbid (severe) obesity due to excess calories (2) Active labor at term: Status: Acute Category: Medical Plan - Monitor vitals - Admit to L&D for labor monitoring and delivery - Plan for augmentation of labor with pitocin if required. - External FHR and TOCO monitor - Exam on admission: /-3 - GBS neg/ Blood type: O+ - Hemoglobin: 10.7, Plt: 270 - Plan for natural labor without regional anesthesia - Anticipate vaginal delivery: [place] gender
[2025-05-22] MEDS: DEXTROSE 5%-LACTATED RINGERS 1,000 ML 125 ML IV (17:20)
[2025-05-22 18:50] LABS: Albumin Level 3.6 g/dl (3.5-5.0); Chloride 106 mmol/L (98-107); Potassium 3.9 mmoL/L (3.5-5.1); Sodium 133 mmol/L (136-145)
[2025-05-22 18:53] LABS: Alanine Aminotransferase 15 U/L (12-78); Albumin/Globulin Ratio 1.2 (1.1-1.8); Alkaline Phosphatase 146 U/L (38-126); Anion Gap 8.9 mEq/L (5-15); Aspartate Amino Transferase 28 U/L (14-36); Blood Urea Nitrogen 14 mg/dl (7-17); Carbon Dioxide 22 mmol/L (22.0-30.0); Creatinine Clearance Estimated 135 mL/min (50-200); Creatinine,Serum 0.50 mg/dl (0.52-1.04); Estimated Glomerular Filt Rate 149 ml/min (>60); GFR (African American) 180 ML/MIN (>60); Globulin 3.1 g/dL (1.3-3.2); Total Protein,Serum 6.7 g/dl (6.3-8.2)
[2025-05-22 18:54] LABS: Calcium 9.2 mg/dl (8.4-10.2); Glucose 124 mg/dl (74-100)
[2025-05-22 19:08] LABS: Bilirubin,Total 0.1 mg/dl (0.2-1.3)
[2025-05-23] MEDS: BUTORPHANOL TARTRATE 1 MG/ML VIAL IV (05:34)
[2025-05-23] MEDS: DEXTROSE 5%-LACTATED RINGERS 1,000 ML 125 ML IV (05:44)
[2025-05-23] MEDS: OXYTOCIN/RINGERS LACTATE 30 UNITS/500 ML BAG 40 UNITS IV (05:56)
[2025-05-23] MEDS: OXYTOCIN/RINGERS LACTATE 30 UNITS/500 ML BAG IV (06:00)
[2025-05-23] MEDS: LACTATED RINGERS 1000ML 1,000 ML 999 ML IV (07:47)
--- NOTE | 2025-05-23 08:24 | EXP.ANES.CKL ---
[facility] Disclaimer: The information contained in this section may have been updated after the patient was seen, as this information can be updated by other users. 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 and not yet delivered in second trimester Viral upper respiratory infection Anemia Depression Anxiety Surgical History History of tonsillectomy Family History (Updated 05/22/25 @ 18:01 by Betina De La Garza RN) Grandfather Leukemia Father Cancer of kidney Mother Heart disease Social History (Updated 05/22/25 @ 18:01 by Betina De La Garza RN) Smoking Status: Former smoker tobacco type: e-cigarettes smoking status stop date: 08/28/2024 alcohol intake: never substance use type: denies use current occupational status: employed Travel in the last 8 weeks?: None household members: spouse do you feel safe at home: Yes victim of physical abuse: No victim of emotional abuse: No victim of sexual abuse: No [facility] Anesthesia Checklist Patient Identification Patient Identification: Arm Band Structural Data Admitted From: Inpatient Planned Operative Procedure/s: Labor Epidural Consent for Planned Operative Procedure(s) Verified: Yes Verified Documents: Surgical Consent and History and Physical Additional verifications Anesthesia Reactions: No Neurological Assessment Level of Consciousness: Awake, Alert and Appropriate Anesthesia Plan Anesthesia Risk discussed: Yes Anesthesia Plan: Verified ASA Class: III Anesthesia Type: Epidural
[2025-05-23 11:59] LABS: RPR W/RFX Titers Nonreactive (Nonreactive)
[2025-05-23] MEDS: OXYTOCIN/RINGERS LACTATE 30 UNITS/500 ML BAG 999 UNITS IV (14:34)
[2025-05-23 14:49] LABS: ABG PH 7.07 mmol/L (7.35-7.45)
[2025-05-23 14:50] LABS: VBG PCO2 35.9 mmol/L (35-51); VBG PH 7.36 mmol/L (7.31-7.41); VBG PO2 30.8 mmol/L (28-40)
--- NOTE | 2025-05-23 15:01 | PC.NURSE ---
Addendum entered by Vipin Georges RN 05/23/25 15:03: Called at 1440 Original Note: Jia from [facility] called with cord Ph arterial 7.07, base excess -9.8 Venous 7.36 Base excess 5.1
--- NOTE | 2025-05-23 16:08 | EXP.DN ---
Delivery Note Delivery Date:: 05/23/25 Delivery Time:: 14:29 Anesthesia Type: Epidural Was labor medically induced?: No Induction method: per pitocin protocol Gestational age (weeks): 38 delivered prior to 39 weeks?: Yes Justification for early elective delivery:: Active Labor Infant Gender: Male at 1 minute: 5 at 5 minutes: 7 Delivery Procedure:: Preoperative diagnosis: 1. at 38 completed this weeks gestation, vertex 2. Rh positive 3. GBS negative 4. Class III obesity 5. POTS Postoperative diagnosis: 1. at 38 completed this weeks gestation, vertex 2. Rh positive 3. GBS negative 4. Class III obesity 5. POTS EBL: 200mL Specimen: 1. Cord blood 2. Cord gases Findings: 1. Liveborn viable male infant: Lacho. Apgars 5/7/8(color, irritability reflex) at 1, 5, and 10 minutes respectively. Weight pending at time of dictation 2. 2nd degree midline perineal laceration. Right labial laceration. Left periclitoral to periurethral laceration Complications: None Procedure: Nonoperative spontaneous vaginal delivery Leticia Moulton is a 24-year-old G1, P0 who presented to my office stating that she had ruptured membranes and was sent to labor and delivery for evaluation. Patient was grossly ruptured on exam with clear fluid. Reports that rupture occurred around 1230 on 05/23/2024. GBS was negative and the patient desired to labor spontaneously. Pitocin was started around 5:00 this morning for labor augmentation. She received an epidural for anesthesia. She progressed to complete. FHT were reassuring throughout labor. During pushing the patient had variable decelerations with contractions. They recovered to baseline with good variability in between contractions. The was noted to be in PEDRO PABLO position. With effective maternal pushing there was a nonoperative spontaneous vaginal delivery at 1429. There was a nuchal cord x1 that was reduced without difficulty. The anterior right shoulder delivered, followed by the posterior shoulder without dystocia. The body and lower extremities delivered without difficulty. The infant was bulb suctioned, and the cord was immediately clamped and cut. was taken to the warmer for evaluation. Cord blood was collected and sent for routine testing. Arterial and venous cord gases were collected. Pitocin was started and the placenta was delivered. The uterus was firm and bleeding was moderate. The perineum, vaginal weeks, cervix, and paraurethral area were inspected thoroughly. There was a second-degree midline perineal laceration, as well as a right labial and left periurethral periclitoral laceration. The laceration was repaired in the usual fashion using 2-0 Vicryl suture. The laceration was hemostatic. The cervix and vaginal weeks were inspected and noted to be hemostatic. This concluded the delivery. The patient was counseled regarding the events of the delivery and repair. The patient tolerated the delivery well. All counts were correct by nursing. Mother and were doing well and bonding upon my leaving the delivery room. Laceration:: vaginal Placental Delivery Description: Spontaneous
[2025-05-23] MEDS: WITCH HAZEL 40 PADS/BOX TP (20:51)
[2025-05-23] MEDS: ACETAMINOPHEN 500MG TAB 1000 MG PO (20:53)
[2025-05-23] MEDS: IBUPROFEN 400 MG TABLET 800 MG PO (20:54)
[2025-05-23] MEDS: BENZOCAINE-MENTHOL SPRAY 56GM CAN TP (20:55)
[2025-05-24 07:41] LABS: Hematocrit 35.7 % (37.0-47.0); Hemoglobin 10.7 g/dL (12.2-16.2)
[2025-05-24 08:00] VITALS: BP 127/65; PULSE 93; RESP 18; TEMP 36.9; O2SAT 97
--- NOTE | 2025-05-24 08:37 | EXP.PN ---
Subjective *Date: 05/24/25 *Time: 08:37 Interval history: Leticia Moulton is a 24yo G1, P1 day #1 following a normal spontaneous vaginal delivery at 38 weeks and 1 days gestation. was complicated by class III obesity and POTS. Routine delivery and course. She is doing well, sitting up in bed, and visiting with family this morning. -Reports pain is well-controlled -Reports she is tolerating p.o. without nausea or vomiting. -Reports her lochia is scant. -Undecided on contraception -She is breast-feeding her female -Ambulating, voiding difficulty or dysuria. Denies chest pain shortness of breath or pain in her legs. No further complaints at this time. Exam Data for Last 24 hours Vital signs and Labs for Last 24 Hours: Temp Pulse Resp BP Pulse Ox O2 Del Method 98.7 F 92 H 15 98/54 L 99 Room Air 05/22/25 13:23 05/22/25 13:23 05/22/25 13:23 05/22/25 13:23 05/22/25 13:23 05/22/25 13:23 Laboratory Results - last 24 hr 05/22/25 13:55: RPR w/Rflx to Titer Nonreactive 05/23/25 14:40: ABG pH 7.07 L*, ABG Base Excess -9.8 L, VBG pH 7.36, VBG pCO2 35.9, VBG pO2 30.8 05/24/25 07:15: Hgb 10.7 L, Hct 35.7 L I & O for Last 24 hours: Intake & Output 05/21/25 05/22/25 05/23/25 05/24/25 23:59 23:59 23:59 23:59 Weight 316 lb Microbiology Reports for the Last 24 Hours: Microbiology 05/22/25 Unknown Urine,Clean Catch Urine Culture - Final Multiple organisms, suggests contamination. Narrative: General: patient is alert oriented in no acute distress and responds appropriately to questions. Appears to be in minimal pain. Sitting up in the chair, caring for the HEENT: NCAT, EOMI, moist mucous membranes, neck supple with full ROM Cardiovascular: RRR +S1/S2, no murmurs or rubs Pulmonary: Clear to auscultation bilaterally, nonlabored breathing, symmetric chest rise Abdominal: Fundus at the umbilicus, firm, and tenderness appropriate for the period. Extremities: trace edema, no tenderness or cyanosis noted Skin: Normal turgor, intact, warm. Negative for erythema, pallor, petechia, or lesions Neurologic: Negative for sensory or motor deficit Psychiatric: Normal affect, normal thought process, good judgment and insight, no depression or anxious mood appreciated. Assessment and Plan *Assessment and plan (1) Active labor at term: Status: Acute Category: Medical (2) Obesity, morbid, BMI 50 or higher: Status: Acute Category: Medical Code(s): E66.01 - Morbid (severe) obesity due to excess calories (3) Syncope: Status: Acute Qualifiers: Syncope type: unspecified Qualified Code(s): R55 - Syncope and collapse Category: Medical Code(s): R55 - Syncope and collapse (4) Dizziness: Status: Acute Category: Medical Code(s): R42 - Dizziness and giddiness (5) Tachycardia: Status: Acute Category: Medical Code(s): R00.0 - Tachycardia, unspecified (6) MANUELITO (obstructive sleep apnea): Status: Acute Category: Medical Code(s): G47.33 - Obstructive sleep apnea (adult) (pediatric) (7) Anxiety: Status: Acute Category: Medical Code(s): F41.9 - Anxiety disorder, unspecified (8) Depression: Status: Acute Category: Medical Code(s): F32.A - Depression, unspecified (9) (normal spontaneous vaginal delivery): Status: Acute Category: Medical Code(s): O80 - Encounter for full-term uncomplicated delivery Plan Stable. PPD#1 s/p [id number], right labial, left periurethral/periclitoral -Doing well. VSS. Serial lochia and fundal checks. -Continue with perineal ice packs for discomfort -Hemoglobin: 10.7--> 10.7 -O+/antibody negative -, male -Desires circumcision, consents signed and risks reviewed -Contraception: undecided -Follow-up 2 weeks for routine visit -Dispo: home in 1-3 days pending mother/infant status
[2025-05-24] MEDS: ACETAMINOPHEN 500MG TAB 1000 MG PO (13:40)
[2025-05-24] MEDS: IBUPROFEN 400 MG TABLET 800 MG PO (13:40)
[2025-05-24 16:08] VITALS: BP 118/64; PULSE 82; RESP 18; TEMP 37; O2SAT 99
[2025-05-24 20:42] VITALS: PULSE 82; O2SAT 98
--- NOTE | 2025-05-24 20:44 | ECG_ITS ---
APPROVED REPORT Exam: Resting ECG HR:78 bpm ECG Measurements Heart Rate 78 AXES DC 162 P 21 QRSd 106 QRS 42 QT 369 T 41 QTc 403 Conclusion SINUS RHYTHM NORMAL ECG UNCONFIRMED REPORT Electronically signed by : Canelo Ritchie MD 05/25/2025 15:34:11
[2025-05-24 20:45] VITALS: BP 91/55; PULSE 83; RESP 17; TEMP 36.6; O2SAT 98
[2025-05-24 20:55] VITALS: PULSE 87; O2SAT 100
--- NOTE | 2025-05-24 21:07 | XR_ITS ---
PROCEDURE INFORMATION: Exam: XR Chest Exam date and time: 05/24/2025 9:22 PM Age: 24 years old Clinical indication: Pain; Chest pressure; Additional info: Chest pain TECHNIQUE: Imaging protocol: Radiologic exam of the chest. Views: 1 view. COMPARISON: CR XR CHEST 2V 09/01/2024 12:33 PM FINDINGS: Lungs: Unremarkable. No consolidation. Pleural spaces: Unremarkable. No pleural effusion. No pneumothorax. Heart/Mediastinum: Unremarkable. No cardiomegaly. Vasculature: Unremarkable. Bones/joints: Unremarkable. IMPRESSION: No acute findings.
[2025-05-24 21:36] VITALS: BP 99/75; PULSE 76; RESP 20; TEMP 36.9; O2SAT 99
[2025-05-24] MEDS: SIMETHICONE 80MG CHEWABLE TABLET 160 MG PO (21:52)
[2025-05-24] MEDS: LANOLIN CREAM 40GM TP (21:59)
[2025-05-24] MEDS: BENZOCAINE-MENTHOL SPRAY 56GM CAN TP (21:59)
[2025-05-24] MEDS: WITCH HAZEL 40 PADS/BOX TP (21:59)
[2025-05-25] MEDS: IBUPROFEN 400 MG TABLET 800 MG PO (01:20)
[2025-05-25 04:35] VITALS: BP 93/62; PULSE 78; RESP 18; TEMP 36.7; O2SAT 100
[2025-05-25 09:00] VITALS: BP 109/60; PULSE 93; RESP 18; TEMP 36.9; O2SAT 98
--- NOTE | 2025-05-25 11:45 | EXP.DC.SUM ---
General Admission date:: 05/22/25 HPI HPI HPI: Leticia Moulton is a 24yo at 38 weeks and 1 day gestation who presented to labor and delivery today with leakage of fluid. Her GEOVANNY is 06/04/2025 which was based on her last menstrual period and consistent with for ultrasound. She endorses irregular painful contractions. On presentation she endorses good movement and denies vaginal bleeding. has been complicated by POTS, morbid obesity, and cervical shortening. She has had reassuring testing O+, antibody negative, rubella immune, hepatitis B negative, hepatitis C negative, RPR negative, HIV negative 1 hour GTT: 140 3-hour GTT: 98/139/106/103 GBS negative Hospital Course Hospital Course Hospital Course: Leticia Moulton is a 24-year-old day #2 from a normal spontaneous vaginal delivery on 05/23/2025 at 429. Apgars were 5, 7, and 8 at 1, 5, and 10 minutes respectively. She delivered a live viable male that weighed 7 pounds and 5 ounces and was 7 pounds and 2 ounces on discharge. Delivery was complicated by terminal meconium and a nuchal cord x 1. received circumcision prior to discharge. She has done well and has remained afebrile with her at her hospitalization. She is eating and drinking and ambulating. She is breast feeding. Her lochia is normal. She has O Rh+ blood, she is rubella nonimmune and was group B streptococcus negative. She will be discharged home to follow-up with Dr. Beavers in 2 weeks time. She will continue with her vitamins. She will take ibuprofen as well. She was given the usual instructions with respect to limiting her activity, driving and sexual activity. She was given instructions with respect to wound care. Her condition on discharge is stable and improved. Exam Data for Last 24 hours Vital signs and Labs for Last 24 Hours: Temp Pulse Resp BP Pulse Ox O2 Del Method 98.4 F 93 H 18 109/60 L 98 Room Air 05/25/25 09:00 05/25/25 09:00 05/25/25 09:00 05/25/25 09:00 05/25/25 09:00 05/25/25 09:00 I & O for Last 24 hours: Intake & Output 05/22/25 05/23/25 05/24/25 05/25/25 23:59 23:59 23:59 23:59 Weight 316 lb Narrative: General: patient is alert oriented in no acute distress and responds appropriately to questions. Appears to be in minimal pain. Sitting up in the bed HEENT: NCAT, EOMI, moist mucous membranes, neck supple with full ROM Cardiovascular: RRR +S1/S2, no murmurs or rubs Pulmonary: Clear to auscultation bilaterally, nonlabored breathing, symmetric chest rise Abdominal: Fundus at the umbilicus, firm, and tenderness appropriate for the period. Extremities: trace edema, no tenderness or cyanosis noted Skin: Normal turgor, intact, warm. Negative for erythema, pallor, petechia, or lesions Neurologic: Negative for sensory or motor deficit Psychiatric: Normal affect, normal thought process, good judgment and insight, no depression or anxious mood appreciated. DS: Diagnosis Discharge Diagnosis (1) Active labor at term: Status: Acute (2) Obesity, morbid, BMI 50 or higher: Status: Acute Code(s): E66.01 - Morbid (severe) obesity due to excess calories (3) Syncope: Status: Acute Code(s): R55 - Syncope and collapse Qualifiers: Syncope type: unspecified Qualified Code(s): R55 - Syncope and collapse (4) Dizziness: Status: Acute Code(s): R42 - Dizziness and giddiness (5) Tachycardia: Status: Acute Code(s): R00.0 - Tachycardia, unspecified (6) MANUELITO (obstructive sleep apnea): Status: Acute Code(s): G47.33 - Obstructive sleep apnea (adult) (pediatric) (7) Anxiety: Status: Acute Code(s): F41.9 - Anxiety disorder, unspecified (8) Depression: Status: Acute Code(s): F32.A - Depression, unspecified (9) (normal spontaneous vaginal delivery): Status: Acute Code(s): O80 - Encounter for full-term uncomplicated delivery Meds Home Medications and Allergies Home Medications ?Medication ?Instructions ?Recorded ?Confirmed ?Type vitamin no.167-folic acid 1 tab PO DAILY 12/19/24 05/22/25 History 400 mcg-dha 25 mg chewable tablet (One-A-Day ) acetaminophen 500 mg tablet 500 mg PO Q6H PRN fever or pain 05/25/25 Rx #30 tabs bupropion HCl 150 mg 24 hr tablet, 150 mg PO DAILY #30 tabs 05/25/25 Rx extended release diltiazem HCl 120 mg 120 mg PO DAILY #30 caps 05/25/25 Rx capsule,extended release 24 hr ibuprofen 800 mg tablet 800 mg PO Q8H PRN pain #60 tabs 05/25/25 Rx sennosides 8.6 mg tablet (Senna 8.6 mg PO BIDP PRN Constipation 05/25/25 Rx Lax) #60 tabs New Prescriptions to Start Prescriptions: acetaminophen Mahogany Beavers bupropion HCl Nimesh,Mahogany diltiazem HCl Mahogany Beavers ibuprofen Nimesh,Mahogany sennosides [Senna Lax] Mahogany Beavers Allergies Allergy/AdvReac Type Severity Reaction Status Date / Time propranolol Allergy Unknown Rash Verified 05/21/25 13:09 Discharge Plan Disposition Patient Disposition: Home, Self-Care Discharge Order Discharge Orders: Discharge Order (Routine); Ordered 05/25/25 Ordered By: Mahogany Beavers Follow up Plan Follow up with: Mahogany Beavers DO [Staff Physician, ARBORIST REPRESENTATIVE] - Enter time for follow up Prescriptions/Medication Reconciliation: New acetaminophen 500 mg tablet 500 mg PO Q6H PRN (Reason: fever or pain) Qty: 30 3RF sennosides [Senna Lax] 8.6 mg Tablet 8.6 mg PO BIDP PRN (Reason: Constipation) Qty: 60 2RF ibuprofen 800 mg tablet 800 mg PO Q8H PRN (Reason: pain) Qty: 60 2RF Continued One-A-Day 400 mcg- 25 mg tablet,chewable 1 tab PO DAILY diltiazem HCl 120 mg capsule,extended release 24hr 120 mg PO DAILY Qty: 30 2RF Patient Comments: TAKE ONE CAPSULE BY MOUTH ONCE A DAY bupropion HCl 150 mg tablet extended release 24 hr 150 mg PO DAILY Qty: 30 1RF Problem Reconciliation Problems Reviewed?: Yes Patient Discharge Instructions ACTIVITY: Continue current activity DIET: regular diet Additional Instructions: Congratulations on the delivery of your sweet baby boy. It is my privilege to be your doctor and I am so thankful I could be a part of your special day. Discharge: -Take 800 mg Ibuprofen every 8 hours as needed for pain. You can also take 500-1000 mg of Tylenol in between doses, every 6-8 hours. -Colace can be taken 1-2 times per day as you need to soften your stool. Make sure to drink at least 8 cups of water per day. -Iron supplements can make you constipated. You can take iron tablets every other day if constipation is too bad. -Nothing in the vagina for 6 weeks - no intercourse, douching, tampons. No tub baths or swimming pools. -Do not lift greater than 20pounds for 2 weeks, this is the equivalent of 2 gallons of milk. -Reasons to return to L&D or call On-Call doctor - fever (greater than 100.4) - heavy vaginal bleeding (soaking through 1 pad in less than 2 hours or passing clots that are egg sized) - vaginal discharge (malodorous and/or purulent) - severe headaches, leg tenderness/edema, or any other symptoms that warrant immediate medical attention. depression/blues - Normal to feel anxious/overwhelmed for first 2 weeks - Talk to your doctor if: anxiety lasts over 2 weeks, trouble bonding with baby, withdrawing from other family members, thoughts of harming yourself or others Blood pressure and preeclampsia instructions 1. Please take your blood pressure twice daily. 2. Please call if greater than 2 values are higher than: 150 systolic (the top number) or 100 diastolic (the bottom number). 3. Please go to the emergency room or labor and delivery triage if any value is higher than: 160 systolic (the top number) or 110 diastolic (the bottom number). 4. Please call if unrelenting headache (does not go away with rest or Tylenol or ibuprofen), changes in vision (spots, floaters, flashes of light), chest pain, shortness of breath, or right upper quadrant (liver) abdominal pain. Mahogany Beavers DO [facility] [phone] *Nothing in the Vagina for 6 weeks* *No strenuous activity* *No heavy lifting* *No tub baths until okay's by MD* Patient Instructions: Depression, Hemorrhage, DI for Labor and Delivery, Vaginal , DI for Pre-eclampsia, [facility] Post Discharge Instructions Print Language: Divehi Providers Primary Care Provider: Denver Browning Admit Provider: Ashutosh Waldron Attending Provider: Ashutosh Waldron
[2025-05-25] MEDS: SIMETHICONE 80MG CHEWABLE TABLET 160 MG PO (13:26)
== END 2025-05-25 16:30 | disposition home or self-care (01) | DRG 806 ==
LOC: OBOUT 13:22 → OB 13:22
PROVIDERS: Obstetrics & Gynecology; Admitting Provider Nurse Practitioner Obstetrics & Gynecology; PCP Nurse Practitioner Family; Visit Provider Nurse Practitioner Obstetrics & Gynecology
DX: O42.02 Full-term premature rupture of membranes, onset of labor within 24 hours of rupture (principal); O26.873 Cervical shortening, third trimester; Z37.0 Single live birth; O99.354 Diseases of the nervous system complicating childbirth; O99.214 Obesity complicating childbirth; E66.813 Obesity, class 3; Z3A.38 38 weeks gestation of pregnancy; O77.0 Labor and delivery complicated by meconium in amniotic fluid; O69.81X0 Labor and delivery complicated by cord around neck, without compression, not applicable or unspecified; G90.A Postural orthostatic tachycardia syndrome [POTS]; G47.33 Obstructive sleep apnea (adult) (pediatric); O99.344 Other mental disorders complicating childbirth; F41.9 Anxiety disorder, unspecified; F32.A Depression, unspecified; O76 Abnormality in fetal heart rate and rhythm complicating labor and delivery; O70.1 Second degree perineal laceration during delivery; O71.82 Other specified trauma to perineum and vulva; Z87.891 Personal history of nicotine dependence; Z23 Encounter for immunization
CPT/HCPCS: 36415; 59025; 71045; 80053; 81001; 82803; 85014; 85018; 85025; 86592; 86850; 87086; 93005; 94761; C1758; J0595; J0665; J2003; J2795; J3010; J7120; J7121

== ENCOUNTER 2025-05-27 09:02 | Emergency (ER) | payer BC, SELFPAY ==
[2025-05-27] VITALS (10 sets, daily range): BP systolic 121–143; BP diastolic 69–93; PULSE 65–82; RESP 9–25; TEMP 36.9–37.1; O2SAT 96–100; BMI 57.8
--- NOTE | 2025-05-27 09:03 | ECG_ITS ---
APPROVED REPORT Exam: Resting ECG HR:74 bpm ECG Measurements Heart Rate 74 AXES PA 165 P 46 QRSd 105 QRS 42 QT 364 T 55 QTc 392 Conclusion SINUS RHYTHM WITH SINUS ARRHYTHMIA NORMAL ECG UNCONFIRMED REPORT Electronically signed by : GEOFF AMATO, 05/28/2025 05:57:10
--- NOTE | 2025-05-27 09:09 | HMH.EDGENADL ---
Discharge Plan Disposition Patient Disposition: Home, Self-Care Prescriptions Prescriptions: New cefadroxil 500 mg capsule 500 mg PO BID 5 Days Qty: 10 0RF No Action One-A-Day 400 mcg- 25 mg tablet,chewable 1 tab PO DAILY acetaminophen 500 mg tablet 500 mg PO Q6H PRN (Reason: fever or pain) Qty: 30 3RF sennosides [Senna Lax] 8.6 mg Tablet 8.6 mg PO BIDP PRN (Reason: Constipation) Qty: 60 2RF ibuprofen 800 mg tablet 800 mg PO Q8H PRN (Reason: pain) Qty: 60 2RF diltiazem HCl 120 mg capsule,extended release 24hr 120 mg PO DAILY Qty: 30 2RF Patient Comments: TAKE ONE CAPSULE BY MOUTH ONCE A DAY bupropion HCl 150 mg tablet extended release 24 hr 150 mg PO DAILY Qty: 30 1RF Referrals Follow up/Referrals: Provider,Referral, MD [Referring, Medical] - See instructions Activity Restrictions/Add. Instructions Additional Instructions/Restrictions: You are found to have small amount of protein in your urine and a mild urinary tract infection. Take the antibiotics as prescribed. I encourage you to follow-up with your OB physician to schedule a follow-up appointment. If you develop any new or worsening symptoms, or if you become concerned for your health for any reason, return to the emergency department for evaluation. Clinical Impressions Clinical Impression: Chest pain, Urinary tract infection, Proteinuria Print Language Print Language: [place] Discharge ED Provider: Sameer Diop Adult HPI General Chief complaint: Chest Pain Stated complaint: chest pain Time Seen by Provider: 05/27/25 09:09 Mode of Arrival: Ambulatory Source of Information: Patient Limitations: No Limitations History of Present Illness HPI narrative: Holly Moulton is a 24y female with a past medical history of tachycardia, anxiety who presents to the emergency department for shortness of breath and intermittent chest pains as well as lower leg edema. Patient states that she delivered a baby on Monday of last week and was discharged couple days ago. She states that she had swelling in both of her legs during but was never diagnosed with preeclampsia or gestational diabetes. She had a few illnesses throughout the but overall was uncomplicated. She states that since the delivery, she has had worsening swelling in both of her legs, however the left is worse than the right and feels swollen and tense. She states that her blood pressure is also somewhat elevated at 133/77. Patient states that the pain in her chest is intermittent and sharp and nothing seems to provoke it or relieve it. She reports some intermittent shortness of breath as well. She denies any history of blood clots or recent hemoptysis. Related Data Home Medications ?Medication ?Instructions ?Recorded ?Confirmed vitamin no.167-folic acid 1 tab PO DAILY 12/19/24 05/22/25 400 mcg-dha 25 mg chewable tablet (One-A-Day ) Previous Rx's ?Medication ?Instructions ?Recorded acetaminophen 500 mg tablet 500 mg PO Q6H PRN fever or pain 05/25/25 #30 tabs bupropion HCl 150 mg 24 hr tablet, 150 mg PO DAILY #30 tabs 05/25/25 extended release diltiazem HCl 120 mg 120 mg PO DAILY #30 caps 05/25/25 capsule,extended release 24 hr ibuprofen 800 mg tablet 800 mg PO Q8H PRN pain #60 tabs 05/25/25 sennosides 8.6 mg tablet (Senna 8.6 mg PO BIDP PRN Constipation 05/25/25 Lax) #60 tabs cefadroxil 500 mg capsule 500 mg PO BID 5 days #10 caps 05/27/25 Allergies Allergy/AdvReac Type Severity Reaction Status Date / Time propranolol Allergy Unknown Rash Verified 05/21/25 13:09 [facility] Disclaimer: The information contained in this section may have been updated after the patient was seen, as this information can be updated by other users. 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 and not yet delivered in second trimester Viral upper respiratory infection Anemia Depression Anxiety Surgical History History of tonsillectomy Family History (Updated 05/22/25 @ 18:01 by Betina De La Garza RN) Grandfather Leukemia Father Cancer of kidney Mother Heart disease Social History (Updated 05/23/25 @ 08:25 by Rajiv Benavides CRNA) Smoking Status: Never smoker smoking status stop date: 08/28/2024 alcohol intake: never substance use type: denies use current occupational status: employed Travel in the last 8 weeks?: None household members: spouse do you feel safe at home: Yes victim of physical abuse: No victim of emotional abuse: No victim of sexual abuse: No Other 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 Have you received the Flu Vaccine for this season: No Have you received the Pneumonia Vaccine: No ROS Obtained: Yes Systems reviewed as appropriate & no additional complaints except as documented Physical Exam General General appearance: alert, in no apparent distress and obese Head Head exam: atraumatic Eye Eye exam: Present normal appearance ENT ENT exam: Present normal external ear exam Neck Neck exam: Present full ROM Chest Chest inspection: Present symmetric chest wall rise Respiratory Respiratory exam: Present normal lung sounds bilaterally; Absent respiratory distress, wheezes or stridor Cardiovascular Cardiovascular exam: Present regular rate and normal rhythm Abdominal Exam Abdominal exam: Present soft; Absent distention, tenderness or guarding Extremities Exam Extremities exam: Present normal inspection and edema (pitting edema to distal bilateral lower extremities) Back Exam Back exam: Present normal inspection Neurological Exam Neurological exam: Present alert and oriented X3 Psychiatric Psychiatric exam: Present normal affect Skin Skin exam: Present warm and dry Medical Decision Making Medical Records Screening: Per USPSTF and CDC recommendations, given the prevalence of disease in our region, it is our hospital?s policy to screen for HIV and viral Hepatitis for all patients aged 18 and over and those with ongoing risk factors. Annath Inquiry Pt receiving controlled substance: No Vital Signs: 05/27/25 09:05 05/27/25 09:06 05/27/25 09:22 Temperature 98.8 F Temperature Source Oral Pulse Rate 75 77 Pulse Rate [Right Radial] 82 Respiratory Rate 25 H 18 20 Blood Pressure 134/93 H 137/80 Blood Pressure [Right Arm] 134/93 H Blood Pressure Mean [Right Arm] 106 Blood Pressure Source Blood Pressure Source [Right Arm] Automatic Cuff Blood Pressure Position Blood Pressure Position [Right Arm] Sitting 02 Sat by Pulse Oximetry 99 96 97 Oxygen Delivery Method Room Air 05/27/25 09:23 05/27/25 10:09 05/27/25 10:11 Temperature Temperature Source Pulse Rate 69 68 69 Pulse Rate [Right Radial] Respiratory Rate 15 18 15 Blood Pressure 130/83 121/69 121/69 Blood Pressure [Right Arm] Blood Pressure Mean [Right Arm] Blood Pressure Source Automatic Cuff Blood Pressure Source [Right Arm] Blood Pressure Position Sitting Blood Pressure Position [Right Arm] 02 Sat by Pulse Oximetry 97 96 98 Oxygen Delivery Method Room Air 05/27/25 10:30 05/27/25 11:00 05/27/25 11:30 Temperature Temperature Source Pulse Rate 76 65 66 Pulse Rate [Right Radial] Respiratory Rate 14 9 L 19 Blood Pressure 133/77 127/75 143/80 H Blood Pressure [Right Arm] Blood Pressure Mean [Right Arm] Blood Pressure Source Blood Pressure Source [Right Arm] Blood Pressure Position Blood Pressure Position [Right Arm] 02 Sat by Pulse Oximetry 99 99 100 Oxygen Delivery Method 05/27/25 11:33 Temperature 98.5 F Temperature Source Pulse Rate 66 Pulse Rate [Right Radial] Respiratory Rate 20 Blood Pressure 143/80 H Blood Pressure [Right Arm] Blood Pressure Mean [Right Arm] Blood Pressure Source Blood Pressure Source [Right Arm] Blood Pressure Position Blood Pressure Position [Right Arm] 02 Sat by Pulse Oximetry Oxygen Delivery Method Lab Data Lab Results 05/27/25 09:11: Urine Color [place], Urine Appearance Slightly cloudy, Urine pH 6.5, Ur Specific [place] <= 1.005, Urine Protein 1+ A, Urine Glucose (UA) Negative, Urine Ketones Negative, Urine Blood 3+ A, Urine Nitrate Negative, Urine Bilirubin Negative, Urine Urobilinogen 0.2, Ur Leukocyte Esterase 2+ A, Urine RBC 10-20, Urine WBC 5-10, Ur Squamous Epith Cells 3-5, Urine Bacteria Trace 05/27/25 09:30: WBC 7.9, RBC 4.27, Hgb 10.4 L, Hct 34.9 L, MCV 81.7, MCH 24.4 L, MCHC 29.8 L, RDW 15.3, Plt Count 302, MPV 10.7 H, Neut % (Auto) 69.6, Lymph % (Auto) 19.6, [place] % (Auto) 4.9, Eos % (Auto) 3.7, Baso % (Auto) 0.4, Neut # (Auto) 5.5, Lymph # (Auto) 1.6, [place] # (Auto) 0.4, Eos # (Auto) 0.3, Baso # (Auto) 0.0, Sodium 135 L, Potassium 4.6, Chloride 104, Carbon Dioxide 27, Anion Gap 8.6, BUN 23 H, Creatinine 0.70, Estimated Creat Clear 96, Estimated GFR 101, Est GFR ( Amer) 122, Glucose 88, Calcium 9.4, Magnesium 1.8, Total Bilirubin 0.3, AST 66 H, ALT 29, Alkaline Phosphatase 100, Troponin I < 0.01, NT-Pro-B Natriuret Pep 113, Total Protein 6.9, Albumin 3.1 L, Globulin 3.8 H, Albumin/Globulin Ratio 0.8 L 05/27/25 09:30 05/27/25 09:30 Orders (Tests/Meds): ED MEDICATIONS Discontinued Medications Generic Name Dose Route Start Last Admin Trade Name Freq PRN Reason Stop Dose Admin Iopamidol 70 ml 05/27/25 09:46 05/27/25 09:46 Iopamidol-370 (76%);100ml Bottle IV 05/27/25 09:47 70 ml ONCE ONE Administration Sodium Chloride 10 ml 05/27/25 09:46 05/27/25 09:46 Sodium Chloride 0.9% 10ml Syr (Rad Only) IV 06/26/25 09:45 10 ml NEEDED PRN Administration Maintain IV Site Sodium Chloride 50 ml 05/27/25 09:46 05/27/25 09:46 0.9 % Sodium Chloride 50 Ml Vial IV 05/27/25 09:47 50 ml ONCE ONE Administration ORDERS Category Date Time Status CT angio chest PE protocol Stat Cat Scan 05/27/25 09:16 Completed BNP [NT Pro Brain Natriuretic Pep.] Stat Lab 05/27/25 09:30 Completed CBC w/Auto Diff [Complete Blood Count Auto Diff] Stat Lab 05/27/25 09:30 Completed CMP [Comprehensive Metabolic Panel] Stat Lab 05/27/25 09:30 Completed Magnesium Stat Lab 05/27/25 09:30 Completed Troponin I Stat Lab 05/27/25 09:30 Completed UA [Urinalysis and Microscopic] Stat Lab 05/27/25 09:11 Completed Urine Culture Stat Micro 05/27/25 09:11 Received CA venous doppler LE LT Stat Y 05/27/25 09:18 Completed ECG Data Tracing #1: I reviewed this ECG and interpreted as documented below: Normal sinus rhythm. No ST elevation or depression. No inverted T waves. QTc normal at 392 Medical Decision Narrative: Holly Moulton is a 24y female with a past medical history of tachycardia, anxiety who presents to the emergency department for shortness of breath and intermittent chest pains as well as lower leg edema. Patient states that she delivered a baby on Monday of last week and was discharged couple days ago. She states that she had swelling in both of her legs during but was never diagnosed with preeclampsia or gestational diabetes. She had a few illnesses throughout the but overall was uncomplicated. She states that since the delivery, she has had worsening swelling in both of her legs, however the left is worse than the right and feels swollen and tense. She states that her blood pressure is also somewhat elevated at 133/77. Patient states that the pain in her chest is intermittent and sharp and nothing seems to provoke it or relieve it. She reports some intermittent shortness of breath as well. She denies any history of blood clots or recent hemoptysis. On arrival, patient is mildly hypertensive with blood pressure 139/93, heart rate within normal limits, breathing comfortably on room air with appropriate oxygen saturation. Afebrile. Physical exam, as stated above, revealed an overall well-appearing female in no distress. She does have pitting edema to her distal bilateral lower extremities but pulses are present throughout both lower extremities. She has no wheezing, rales or rhonchi. On previous review, blood pressures have ranged from 110s to 130s systolic recently. Differential diagnoses include, but are not limited to: preeclampsia, PE, ACS, pneumonia, DVT, HELLP syndrome, among others. The most morbid conditions were considered and workup was based on these. Workup in the emergency department included: LLE DVT US, CTA PE, CBC, CMP, BNP, troponin, magnesium level, UA, EKG EKG interpreted by me personally with no evidence of ischemia. See interpretation above. CTA PE interpreted by me personally. No evidence of pulmonary embolism, no findings to suggest pneumonia, no pneumothorax. See final radiology report for details. Laboratory and UA reviewed by me personally. No leukocytosis, stable low Hg and Hct of 10.4 and 34.9, respectively. Normal platelets. Mild hyponatremia of 135 but non-actionable. Electrolytes otherwise within normal limits. BUN mildly elevated at 23 but creatinine WNL. Magnesium WNL. AST is elevated at 66 but liver enzymes and bilirubin within normal limits. Initial troponin <0.01. BNP within normal limits. Urine with 1+ protein (has had trace protein on the and of this month but negative prior to this), negative ketons/nitrate but 2+ leukocyte esterase with 5-10 WBC. 10-20 RBCs. Patient likely has a mild UTI given her urinalysis. She does not meet the blood pressure requriements for post- preeclampsia, although she does have increasing amounts of protein in her urine. Given this, I feel that she is appropriate for discharge with plan to follow up closeley with her OBGYN for reassessment. She was given strict return precautions. All questions were answered. She demonstrated understanding and was in agreement with this plan. She was then discharged from the ED in stable condition. Critical Care Critical Care Time Critical Care Time: No
--- OUTSIDE RECORDS SUMMARY | 2025-05-27 09:10 | XMS_ITS | Clinical Summary ---
Author Organization [employer] ([place], [place], [place], [place]) Address [address] [place] [address] Care Team Providers Care Fire Prevention Forester Name Role Phone Stephanie Allen PA-C Primary Care Provider [phone] Allergies Active Allergy Reactions Criticality Noted Date [...] Date Deyvi rded Speak language other than Martiniquais at home Not on file 09/01/2024 Want help with school or training Not on file 09/01/2024 Substance Use Answer Date Recorded Used prescription meds for non-medical reasons N ot on file 09/01/2024 Used illegal drugs past 12 months Not on file 09/01/2024 Comments No Sex and Gender Information Value Date Recorded Sex Assigned at Not on file Legal Sex 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
--- OUTSIDE RECORDS SUMMARY | 2025-05-27 09:10 | XMS_ITS | Clinical Summary ---
Author Organization [facility] Address [address] [place] [address] Care Team Providers Care Gutter Mouth Cutter Name Role Phone NancyStacy barker Primary Care Provider [phone] Allergies Active Allergy Reactions Criticality Noted Date [...] patient's age to complete this topic Insurance [facility] PPO Care Teams Gutter Mouth Cutter Relationship Specialty Start Date End Date Stacy Cruz DO [address] [place] [id number] PCP - General Family Medicine 09/14/23
--- OUTSIDE RECORDS SUMMARY | 2025-05-27 09:10 | XMS_ITS | Referral Summary ---
Author Organization [employer] ([place], [place], [place], [place]) Address [address] [place] [address] Care Team Providers Care Critical Care Nurse Specialist Name Role Phone Stephanie Allen PA-C Primary Care Provider [phone] Allergies Active Allergy Reactions Criticality Noted Date [...] Date Deyvi rded Speak language other than Mexican at home Not on file 09/01/2024 Want help with school or training Not on file 09/01/2024 Substance Use Answer Date Recorded Used prescription meds for non-medical reasons N ot on file 09/01/2024 Used illegal drugs past 12 months Not on file 09/01/2024 Comments No Sex and Gender Information Value Date Recorded Sex Assigned at Not on file 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
--- OUTSIDE RECORDS SUMMARY | 2025-05-27 09:10 | XMS_ITS | Encounter Summary ---
Author Organization Healthcare Address [address] [place] [address] Care Team Providers Care Cyber Ops Planner Name Role Phone None, None Primary Care Provider [phone] Stephanie Allen Primary Care Provider [phone] Encounter Details Date Type Department Care Team (Late st Contact Info) Description 10/12/2022 Outside Procedure External Location [address] [place] [address] James Cowart MD [address] [place] [address] Social History Tobacco Use Types [...] AM EST Narrative 10/12/2022 8:21 [place] [address] Name: LETICIA PENNINGTON Exam Date: 10/12/2022 : 2000 Age 22 Gender: F Physician: JAMES COWART Facility: [facility] Facility HSV: Outpatient Exam: HYSTEROSALPINGOGRAM FLUOROSCOPY [...] Thank you for referring LETICIA PENNINGTON to [facility]. Legally authenticated by POPE ANA Baptiste 2022-10-12 08:09:41 Procedure Note Provider, Generic [place] - 10/12/2022 [place] [address] Name: ELTICIA PENNINGTON Exam Date: 10/12/2022 : 2000 Age 22 Gender: F Physician: JAMES COWART Facility: [facility] Facility HSV: Outpatient Exam: HYSTEROSALPINGOGRAM FLUOROSCOPY [...] Thank you for referring LETICIA PENNINGTON to [facility]. Legally authenticated by POPE ANA Baptiste 2022-10-12 08:09:41 James Cowart MD IMG FLUOROSCOPY PROCEDURES Gayle l Result documented in this encounter Visit Diagnoses Not on filedocumented in this encounter Care Teams Cyber Ops Planner Relationship Specialty Start Date End Date None, None [address] [place] [address] PCP - General NONE FOUND 09/05/22 05/23/24 Stephanie Allen PA [address] [place] [address] PCP - General 08/30/24 documented as of this encounter
--- OUTSIDE RECORDS SUMMARY | 2025-05-27 09:10 | XMS_ITS | Clinical Summary ---
Author Organization [facility] Address [address] [place] [address] Care Team Providers Care Loan Operations Manager Name Role Phone Stephanie Allen Primary Care [...] ( VITAMINS PO) Take by mouth. Active Family History 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 Relation Name Comments Alcohol abuse Father Earsel Vo Cancer Father Earsel Vo Diabetes Father Earsel Vo Kidney cancer Father Earsel Vo Obesity Father Earsel Vo Cancer Maternal Grandfather Gerria Fischer Hearing loss Maternal Grandfather Gerria Fischer Heart disease Maternal Grandfather Gerria Fischer COPD Maternal Grandmother Esme Fischer Heart disease Maternal Grandmother Esme Fischer Miscarriages / Stillbirths Maternal Grandmother Mary Jane Fischer Heart disease Mother Debi Vo Obesity Mother Debi Vo Aneurysm Paternal Grandmother Heart disease Paternal Grandmother Hearing loss Sister Thyroid disease Sister Relation Name Status Comments Father Earsel Vo Maternal Grandfather Jones Fischer Maternal Grandmother [...] 19+ 3-dose series) 2017 [facility]-Pap Smear 2019 [id number] Vaccine ( - season) 2024 [facility]-Influenza Vaccine (#1) 06/30/202509/15, 08/31/2010, 08/22/2007 [facility]-Depression Screening 01/22/2026 01/22/2025, 04/2025 [...] Reactive Non Reactive 11/01/2024 1:54 PM EST [facility] Comment:Screening for HIV 1 & 2 antibodies, and P24 antigen is NONREACTIVE. No confirmatory testing is required. Blood Venous blood specimen / Unknown Venipuncture / Unknown 11/01/2024 10:24 AM EST 11/01/2024 12:52 PM EST Result Santino Cowart MD LAB BLOOD ORDERABLES Final Resu lt Performing Organization Address City/[facility]/ZIP Co de Phone Number [facility] [address] [place] [address] * Hepatitis C Antibody w/Reflex to HCV Quant PCR (11/01/2024 10:24 AM EST) Hepatitis C Antibody Negative Negative 11/01/2024 1:31 PM EST [facility] Blood Venous blood specimen / Unknown Venipuncture / Unknown 11/01/2024 10:24 AM EST 11/01/2024 12:52 PM EST Result Santino Cowart MD LAB BLOOD ORDERABLES Final Resu lt Performing Organization Address City/[facility] Co de Phone Number [facility] [address] [place] [address] from Last 3 Months or Most Recently Relevant to Health Maintenance Additional Health Concerns Active Problems Noted Date Diagnosed Date CPM S24 PP LABOR (OBSTETRICS) 11/19/2024 Insurance [employer]THEM Care Teams Loan Operations Manager Relationship Specialty Start Date End Date Stephanie Allen PA [address] [place] [address] PCP - General 08/30/24
--- NOTE | 2025-05-27 09:16 | CT_ITS ---
FINAL REPORT TECHNIQUE: Axial imaging of the chest is obtained after the administration of contrast. 3-D MIP reformatted images were also obtained and reviewed per PE protocol. This study was performed with techniques to keep radiation doses as low as reasonably achievable (ALARA). Individualized dose reduction techniques using automated exposure control or adjustment of mA and/or kV according to the patient's size were employed. CLINICAL HISTORY: Shortness of breath, chest pain, recent vaginal delivery COMPARISON: None FINDINGS: There is suboptimal opacification of the peripheral pulmonary arteries secondary to timing of the contrast bolus. No central pulmonary emboli are present. There is no aortic dissection. The heart size is mildly enlarged. There is no mediastinal, hilar, or axillary lymphadenopathy. The lungs are clear. There is no pleural or pericardial effusion. Limited evaluation of the upper abdomen is without acute abnormality. No acute osseous abnormality. IMPRESSION: Suboptimal opacification of the peripheral pulmonary arteries, however no central pulmonary emboli are identified. No areas of consolidation, suspicious nodules, or adenopathy are identified. Reviewed, Interpreted and Dictated by Diamante Mchugh MD Transcribed by Christy Gurrola Authenticated and [facility]
--- NOTE | 2025-05-27 09:18 | CA_ITS ---
FINAL REPORT CLINICAL HISTORY: LLE swelling, <1 week. SOA, Morbid obesity FINDINGS: DUPLEX VENOUS SONOGRAPHY OF THE LEFT LOWER EXTREMITY Multiple transverse and longitudinal scans were performed of the femoropopliteal deep venous system, with augmentation and compression maneuvers. Normal phasic flow was noted in the visualized deep venous system. No intraluminal increased echogenicity is noted to suggest thrombus. There is normal compression and augmentation of the venous structures. No abnormal venous collaterals are seen. IMPRESSION: No evidence of deep venous thrombosis of the left lower extremity. Reviewed, Interpreted and Dictated by Diamante Mchugh MD Transcribed by Wendy Cleveland Authenticated and [facility]
[2025-05-27 09:25] LABS: Microscopic, Urine URINE MICROSCOPIC (MICROSCOPIC)
--- NOTE | 2025-05-27 09:39 | PC.NURSE ---
pt going to radiology at this time. pt in gown.
[2025-05-27] MEDS: 0.9 % SODIUM CHLORIDE 50 ML VIAL IV (09:46)
[2025-05-27] MEDS: IOPAMIDOL-370 (76%);100ML BOTTLE 70 ML IV (09:46)
[2025-05-27] MEDS: SODIUM CHLORIDE 0.9% 10ML SYR (RAD ONLY) 10 ML IV (09:46)
--- NOTE | 2025-05-27 09:50 | PC.NURSE ---
returned from radiology at this time
[2025-05-27 10:10] LABS: Color,Urine Orange (Yellow); PH,Urine 6.5 (5.0-8.5)
[2025-05-27 10:11] LABS: Bilirubin,Urine Negative (Negative); Glucose,Urine (UA) Negative (Negative); Ketones,Urine Negative (Negative); Leukocyte Esterase,Urine 2+ (Negative); Protein,Urine 1+ (Negative); Specific Gravity, Urine <= 1.005 (1.005-1.030); Urobilinogen,Urine 0.2 EU/dl (0.2)
[2025-05-27 10:12] LABS: Hematocrit 34.9 % (37.0-47.0); Hemoglobin 10.4 g/dL (12.2-16.2); Mean Corpuscular HGB Conc 29.8 g/dL (31.8-35.4); Mean Corpuscular Hemoglobin 24.4 pg (27.0-31.2); Mean Corpuscular Volume 81.7 fl (81-99); Platelet Count 302 K/mm3 (142-424); Red Blood Count 4.27 M/mm3 (4.20-5.40); Red Cell Distribution Width-SD 45.3 fL; White Blood Count 7.9 K/mm3 (4.8-10.8)
[2025-05-27 10:13] LABS: Immature Granulocytes % 1.8 %; Nucleated Red Blood Cells % 0 %
--- NOTE | 2025-05-27 10:15 | PC.NURSE ---
Dr. Cardoso called at this time for admission.
[2025-05-27 10:16] LABS: Sodium 135 mmol/L (136-145); Troponin I < 0.01 ng/ml (0.00-0.034)
[2025-05-27 10:17] LABS: Anion Gap 8.6 mEq/L (5-15); Blood Urea Nitrogen 23 mg/dl (7-17); Calcium 9.4 mg/dl (8.4-10.2); Carbon Dioxide 27 mmol/L (22.0-30.0); Chloride 104 mmol/L (98-107); Creatinine Clearance Estimated 96 mL/min (50-200); Creatinine,Serum 0.70 mg/dl (0.52-1.04); Estimated Glomerular Filt Rate 101 ml/min (>60); GFR (African American) 122 ML/MIN (>60); Glucose 88 mg/dl (74-100); Magnesium 1.8 mg/dl (1.6-2.3); Potassium 4.6 mmoL/L (3.5-5.1)
[2025-05-27 10:18] LABS: Alanine Aminotransferase 29 U/L (12-78); Albumin Level 3.1 g/dl (3.5-5.0); Albumin/Globulin Ratio 0.8 (1.1-1.8); Alkaline Phosphatase 100 U/L (38-126); Aspartate Amino Transferase 66 U/L (14-36); Bilirubin,Total 0.3 mg/dl (0.2-1.3); Globulin 3.8 g/dL (1.3-3.2); NT Pro Brain Natriuretic Pep. 113 pg/mL (0-125); Total Protein,Serum 6.9 g/dl (6.3-8.2)
--- NOTE | 2025-05-27 10:22 | PC.NURSE ---
house called for admission.
[2025-05-27 10:42] LABS: Bacteria,Urine Trace /lpf
--- NOTE | 2025-05-31 18:14 | PC.NURSE ---
I discussed the pts final urine culture with Dr. Diop. No change needed to treatment plan
== END 2025-05-27 11:35 | disposition home or self-care (01) ==
PROVIDERS: Emergency Provider Student in an Organized Health Care Education/Training Program; PCP Nurse Practitioner Family
DX: R07.9 Chest pain, unspecified (principal); N39.0 Urinary tract infection, site not specified; R80.9 Proteinuria, unspecified; G47.33 Obstructive sleep apnea (adult) (pediatric); F41.9 Anxiety disorder, unspecified; F32.A Depression, unspecified
CPT/HCPCS: 71275; 80053; 81001; 83735; 83880; 84484; 85025; 87086; 87088; 87186; 93005; 93971; 99285; Q9967

== ENCOUNTER 2025-06-25 07:28 | Outpatient (CLI) | payer BC, SELFPAY ==
--- NOTE | 2025-06-25 07:30 | US_ITS ---
FINAL REPORT CLINICAL HISTORY: RUQ PAIN FINDINGS: Sonographic images of the right upper quadrant were obtained in the longitudinal and transverse planes. PANCREAS: Tail of the pancreas is obscured. The head is normal.. LIVER: Hyperechoic lesion in the left lobe of the liver measures 2.9 cm. There is fatty infiltration of the liver. No intrahepatic biliary ductal dilatation. GALLBLADDER: No gallstones. No gallbladder wall thickening or pericholecystic fluid. COMMON DUCT: 3 mm. Normal for age. RIGHT KIDNEY: The right kidney measures 11.2 cm. There is no hydronephrosis, mass, or stone. FREE FLUID: None. IMPRESSION: Hyperechoic liver lesion. In a patient this age and in the absence of known malignancy, this is likely benign however nonspecific. Consider MRI using liver protocol. Fatty liver. Reviewed, Interpreted and Dictated by Diamante Mchugh MD Transcribed by Wendy Cleveland Authenticated and [facility]
--- OUTSIDE RECORDS SUMMARY | 2025-06-25 07:30 | XMS_ITS | Clinical Summary ---
Author Organization [facility] Address [address] [place] [address] Care Team Providers Care Fire Patrol Name Role Phone NancyStacy barker Primary Care Provider [phone] Allergies Active Allergy Reactions Criticality Noted Date [...] patient's age to complete this topic Insurance [facility] PPO Care Teams Fire Patrol Relationship Specialty Start Date End Date Stacy Cruz DO [address] [place] [address] PCP - General Family Medicine 09/14/23
--- OUTSIDE RECORDS SUMMARY | 2025-06-25 07:30 | XMS_ITS | Clinical Summary ---
Author Organization [employer] ([place], [place], [place], [place]) Address [address] [place] [address] Care Team Providers Care Aquaculture Worker Name Role Phone Stephanie Allen PA-C Primary Care Provider [phone] Allergies Active Allergy Reactions Criticality Noted Date [...] Date Deyvi rded Speak language other than Botswanan at home Not on file 09/01/2024 Want help with school or training Not on file 09/01/2024 Substance Use Answer Date Recorded Used prescription meds for non-medical reasons N ot on file 09/01/2024 Used illegal drugs past 12 months Not on file 09/01/2024 Comments No Sex and Gender Information Value Date Recorded Sex Assigned at Not on file Legal 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
--- OUTSIDE RECORDS SUMMARY | 2025-06-25 07:30 | XMS_ITS | Referral Summary ---
Author Organization [employer] ([place], [place], [place], [place]) Address [address] [place] [address] Care Team Providers Care Dance Teacher Name Role Phone Stephanie Allen PA-C Primary Care Provider [phone] Allergies Active Allergy Reactions Criticality Noted Date [...] Date Deyvi rded Speak language other than Tristanian at home Not on file 09/01/2024 Want help with school or training Not on file 09/01/2024 Substance Use Answer Date Recorded Used prescription meds for non-medical reasons N ot on file 09/01/2024 Used illegal drugs past 12 months Not on file 09/01/2024 Comments No Sex and Gender Information Value Date Recorded Sex Assigned at Not on file 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
--- OUTSIDE RECORDS SUMMARY | 2025-06-25 07:30 | XMS_ITS | Clinical Summary ---
Author Organization [facility] Address [address] [place] [address] Care Team Providers Care Tenoner Operator Name Role Phone Stephanie Allen Primary Care Provider [phone] Allergies Active Allergy Reactions Criticality Noted Date [...] 19+ 3-dose series) 2017 [facility]-Pap Smear 2019 ZBM-BXJEQ-13 Vaccine ( - season) 2024 [facility]-Influenza Vaccine [...] ORDERABLES Final Resu lt Performing Organization Address City/[facility]/ZIP Co de Phone Number [facility] [address] [place] [address] * Hepatitis C Antibody w/Reflex to HCV Quant PCR (11/01/2024 10:24 AM EST) Hepatitis C Antibody Negative Negative 11/01/2024 1:31 PM EST [facility] Blood Venous blood specimen / Unknown Venipuncture / Unknown 11/01/2024 10:24 AM EST 11/01/2024 12:52 PM EST Result Santino Cowart MD LAB BLOOD ORDERABLES Final Resu lt Performing Organization Address City/[facility] Co de Phone Number [facility] [address] [place] [address] from Last 3 Months or Most Recently Relevant to Health Maintenance Additional Health Concerns Active Problems Noted Date Diagnosed Date CPM S24 PP LABOR (OBSTETRICS) 11/19/2024 Insurance ANTHEM Care Teams Tenoner Operator Relationship Specialty Start Date End Date Stephanie Allen PA [address] [place] [address] PCP - General 08/30/24
--- OUTSIDE RECORDS SUMMARY | 2025-06-25 07:30 | XMS_ITS | Encounter Summary ---
Author Organization [facility] Address [address] [place] [address] Care Team Providers Care Aircraft Sheet Metal Mechanic Name Role Phone None, None Primary Care Provider [phone] Stephanie Allen Primary Care Provider [phone] Encounter Details Date Type Department Care Team (Late st Contact Info) Description 10/12/2022 Outside Procedure External Location [address] [place] [address] James Cowart MD [address] [place] [address] Social History Tobacco Use Types [...] AM EST Narrative 10/12/2022 8:21 [place] [address] Name: LETICIA PENNINGTON Exam Date: 10/12/2022 : 2000 Age 22 Gender: F Physician: JAMES COWART Facility: [facility] Facility HSV: Outpatient Exam: HYSTEROSALPINGOGRAM FLUOROSCOPY [...] Thank you for referring LETICIA PENNINGTON to [facility]. Legally authenticated by POPE ANA Baptiste 2022-10-12 08:09:41 Procedure Note Provider, Generic Alborn - 10/12/2022 [place] [address] Name: LETICIA PENNINGTON Exam Date: 10/12/2022 : 2000 Age 22 Gender: F Physician: JAMES COWART Facility: [facility] Facility HSV: Outpatient Exam: HYSTEROSALPINGOGRAM FLUOROSCOPY [...] Thank you for referring LETICIA PENNINGTON to [facility]. Legally authenticated by POPE ANA Baptiste 2022-10-12 08:09:41 James Cowart MD IMG FLUOROSCOPY PROCEDURES Gayle l Result documented in this encounter Visit Diagnoses Not on filedocumented in this encounter Care Teams Aircraft Sheet Metal Mechanic Relationship Specialty Start Date End Date None, None [address] [place] [address] PCP - General NONE FOUND 09/05/22 05/23/24 Stephanie Allen PA [address] [place] [address] PCP - General 08/30/24 documented as of this encounter
== END 2025-06-25 23:59 | disposition home or self-care (01) ==
LOC: RAD 07:28
PROVIDERS: PCP Family Medicine; Visit Provider Family Medicine
DX: K76.0 Fatty (change of) liver, not elsewhere classified (principal); R93.2 Abnormal findings on diagnostic imaging of liver and biliary tract; R10.11 Right upper quadrant pain
CPT/HCPCS: 76705

== ENCOUNTER 2025-07-25 07:24 | Outpatient (CLI) | payer BC, SELFPAY ==
--- OUTSIDE RECORDS SUMMARY | 2025-06-20 06:45 | XMS_ITS ---
[facility] Address [address] [facility] [address] [place] [id number] Care Team Providers Care Pattern Finisher Name Role Phone Bayron Hayes Primary Care Provider [phone] Allergies Allergen (clinical drug ingredient) Drug/Non Drug [...] date:06/24/2025 01:27:33 PM Interpretation:Normal Performing Lab: Notes/Report: CLIA: [id number] Ludin Smith MD, [facility] [address] [place] [address] , [address], [place] [address] Test performed by [facility] Amylase 27 28-100 U/L P-Comprehensive Metabolic Pa tara (CMP) Reviewed date:06/24/2025 01:27:33 PM Interpretation:Normal Performing Lab: Notes/Report: Test performed by [facility] [address] [place], [place] [email or web address] Rigo Moreno, [facility] [place] [id number] Ludni Smith MD, [employer] CLIA: [id number] Sodium 141 135-145 mmol/L Potassium 4.4 3.5-5.3 [...] Interpretation:Normal Performing Lab: Notes/Report: Test performed by [facility] [employer] [address] [place] [address] , [address], [place] [address] Ludin Smith MD, [facility] [employer] CLIA: [id number] Lipase 22.7 13.0-60.0 U/L Ultrasound : Abdomen [...] Orally Active Vitamin Act mahamed Vital Signs Weight 303 lbs 06/20/2025 Blood pressure systolic 134 mm Hg 06/20/20 25 Blood pressure diastolic 82 mm Hg 025 Heart Rate 107 /min 06/20/2025 Height 62 in 06/20/2025 BMI 55.41 kg/m2 06/20/2025 Encounters Encounter Location Date Provider Diagnosis [facility] [address] [facility] [address] [place] [id number] 06/20/2025 Bayron [place] RUQ abdominal pain R10.11 Assessments Encounter Date Diagnosis (ICD Code) Assessment Notes Treatment Notes Treatment Clinical Notes Section Notes 06/20/2025 RUQ abdominal pain (ICD-10 - R10.11) Plan Of Treatment Next Appt Details Follow Up: via phone to repo rt test results, Reason: Progress Notes * Leticia HORTONDOB: 8 (25 yo F)Acc No.[id number]:06/20/2025 Progress Notes Patient: Leticia URENA Provider: Rkii Hayes M.D. :2000 A ge:24 Y S ex:Female Date:06/20/2025 Address:[address] [place] [address] [address], [place], [id number] Subjective: * Chief Complaints: * 1 . [...] urine. * 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: D epression. 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 * Procedure Codes: 60932 CBC WITH AUTO DIFF. * Electronic signature of Randa Hayes MD on 07/25/2025 at 07:26 AM EDT Sign off status: Pending * Provider: Riki Hayes M.D. Date: 0 06/20/2025 Generated for Deenai eugene/Ashley/eTransmitting on: 0 07/25/2025 07:26 AM EDT History and Physical Notes * HPI (History [...]
--- OUTSIDE RECORDS SUMMARY | 2025-06-26 06:16 | XMS_ITS ---
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 Assessments Encounter Date Diagnosis (ICD Code) Assessment Notes Treatment Notes Treatment Clinical Notes Section Notes 06/26/2025 Neoplasm of uncertain behavior of liver (ICD-10 - D37.6) Plan Of Treatment Pending Test Test Name Order Date MRI : Liver, with and without contrast 0 06/26/2025 Progress Notes * Leticia HORTONDOB: 8 (24 yo F)Acc No.[id number]:06/26/2025 Patient: Sherif URENAyn :2000 A ge:24 Y S ex:Female Address:[address] [place], [place] [address] [address], [place], [place], [place] [address] Subjective: * Chief Complaints: * T est Results * 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: * Surgical History: * Hospitalization/Major Diagno stic Procedure: * Medications: Objective: * Vitals: * Physical Examination: Assessment: * Assessment: 1. 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
--- OUTSIDE RECORDS SUMMARY | 2025-07-25 07:27 | XMS_ITS | Referral Summary ---
Author Organization [employer] ([place], [place], [place], [place]) Address [address] [place] [address] Care Team Providers Care Hydrogen Braze Furnace Operator Name Role Phone Stephanie Allen PA-C Primary Care Provider [phone] Allergies Active Allergy Reactions Criticality Noted Date [...] Date Deyvi rded Speak language other than Turkish at home Not on file 09/01/2024 Want help with school or training Not on file 09/01/2024 Substance Use Answer Date Recorded Used prescription meds for non-medical reasons N ot on file 09/01/2024 Used illegal drugs past 12 months Not on file 09/01/2024 Comments No Sex and Gender Information Value Date Recorded Sex Assigned at Not on file 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
--- OUTSIDE RECORDS SUMMARY | 2025-07-25 07:27 | XMS_ITS | Clinical Summary ---
Author Organization [employer] ([place], [place], [place], [place]) Address [address] [place] [address] Care Team Providers Care Branch Director Name Role Phone Stephanie Allen PA-C Primary Care Provider [phone] Allergies Active Allergy Reactions Criticality Noted Date [...] Date Deyvi rded Speak language other than Yoruba at home Not on file 09/01/2024 Want help with school or training Not on file 09/01/2024 Substance Use Answer Date Recorded Used prescription meds for non-medical reasons N ot on file 09/01/2024 Used illegal drugs past 12 months Not on file 09/01/2024 Comments No Sex and Gender Information Value Date Recorded Sex Assigned at Not on file Legal Sex Female 7:19 PM DRAWING HAND Gender Identity Not on file Sexual Orientation [...] COVID-19 VACCINE ( - 2023-2 5 season) 2025 Influenza Vaccine (#1) 2025 09/15/2020 Tobacco Cessation Counseling and Screening (12+) 09/01/2025 09/01/2024 DTAP/TDAP/TD VACCINES (2 - T d or Tdap) 10/30/2028 10/30/2018 Pneumococcal Vaccine: 0-49 Years Aged Out No longer eligible based on patient's age to complete this topic Insurance [employer] [place] [id number] BLUE CROSS/BLUE SHIELD Care Teams Branch Director Relationship Specialty Start Date End Date Stephanie Allen PA-C [facility] [address] [place] [address] PCP - General 09/01/24
--- OUTSIDE RECORDS SUMMARY | 2025-07-25 07:27 | XMS_ITS | Patient Health Record ---
Author Organization [facility] Address [address] [facility] [address] [address] [id number] Care Team Providers Care Senior Quality Technician Name Role Phone Bayron Hayes Primary Care Provider Allergies Allergen (clinical drug ingredient) Drug/Non Drug [...] Interpretation:Normal Performing Lab: Notes/Report: Test performed by [email or web address] [address] [place], [place] [address] [address] , [address], [place] [address] Ludin Smith MD, Embedded Software Developer CLIA: [id number] Amylase 27 28-100 U/L P-Comprehensive Metabolic Pa tara (CMP) Reviewed date:06/24/2025 01:27:33 PM Interpretation:Normal Performing Lab: Notes/Report: Test performed by [email or web address] [address] [place], [place] [address] [address] , [address], [place] [address] Ludin Smith MD, Embedded Software Developer CLIA: [id number] Sodium 141 135-145 mmol/L Potassium 4.4 3.5-5.3 [...] Interpretation:Normal Performing Lab: Notes/Report: Test performed by [email or web address] [address] [place] [address] , [address], [place] [address] Ludin Smith MD, Embedded Software Developer CLIA: [id number] Lipase 22.7 13.0-60.0 U/L Ultrasound : Abdomen Reviewed date:06/26/2025 10:15:43 AM Interpretation: Performing Lab: Notes/Report: IFTIKHAR Reviewed date:06/18/2025 02:27:47 PM Interpretation: Performing Lab: Notes/Report: Reason For Referral No Information Medications Medication SIG (Take, Route, Frequency, Duration) Notes Start Date End Date Status buPROPion HCl ER (SR) 150 MG 1 tablet in the morning Orally Once a day Active dilTIAZem HCl 120 MG as directed Orally Active Vitamin Act mahamed Vital Signs Heart Rate 107 /min 06/20/2025 Blood pressure diastolic 82 mm Hg 06/20/2025 Height 62 in 06/20/2025 Blood pressure systolic 134 mm Hg 06/20/2025 Weight 303 lbs 06/20/2025 BMI 55.41 kg/m2 06/20/2025 Encounters Encounter Location Date Provider Diagnosis [facility] [address] [facility] [address] [facility] [address] [place] [id number] 06/20/2025 [facility] [place] RUQ abdominal pain R10.11 [facility] [address] [facility] [address] [facility] [address] [place] [id number] 06/26/2025 [facility]ron [place] 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 Assessments Encounter Date Diagnosis (ICD Code) Assessment Notes Treatment Notes Treatment Clinical Notes Section Notes 06/26/2025 Neoplasm of uncertain behavior of liver (ICD-10 - D37.6) 06/20/2025 RUQ abdominal pain (ICD-10 - R10.11) Plan Of Treatment Pending Test Test Name Order Date MRI : Liver, with and without contrast 0 06/26/2025 Insurance Providers Payer Name Payer Address Payer Phone Subscriber Number Group Number Insured Name Patient Relationship to Insured Coverage Start Date Coverage End Date [place] BLUE CROSSBLUE SHIELD [address] [place] [address] [id number] Leticia Moulton Self - patient is the insured Medical (General) History 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 History ICD Code Depression Surgical History Surgery Date(Month/Year) Tonsilectomy 2011
--- OUTSIDE RECORDS SUMMARY | 2025-07-25 07:27 | XMS_ITS | Clinical Summary ---
Author Organization [facility] Address [address] [place] [address] Care Team Providers Care Automobile Mechanic Name Role Phone NancyStacy barker Primary Care Provider [phone] Allergies Active Allergy Reactions Criticality Noted Date [...] and Breast Exam 2000 ANNUAL PHYSICAL 03/07/2022 INFLUENZA VACCINE 05/30/2025 09/15/2020, 08/31/2010, 08/22/2007 PAP SMEAR 10/31/2025 10/31/2022 (Patient-Reported (Performed Externally)) TDAP/TD VACCINES (2 - Td or Tdap) 10/30/2028 10/30/2018 HPV VACCINES Completed 12/14/2023, 11/19/2007, 08/08/2007 CHLAMYDIA SCREENING Discontinued 10/25/2024 HEPATITIS C SCREENING Completed 11/01/2024 , 11/01/2024 Pneumococcal Vaccine 0-49 Aged Out No longer eligible based on patient's age to complete this topic Insurance [facility] BLUE SHIELD PPO [facility] PPO Care Teams Automobile Mechanic Relationship Specialty Start Date End Date Stacy Cruz DO [address] [place], [place] [id number] PCP - General Family Medicine 09/14/23
--- NOTE | 2025-07-25 07:30 | MR_ITS ---
FINAL REPORT TECHNIQUE: Multiplanar and multisequence imaging was obtained before and after the intravenous injection of gadolinium contrast. CLINICAL HISTORY: NEOPLASM OF UNCERTAIN BEHAVIOR OF LIVER abnormal ultrasound of liver COMPARISON: None FINDINGS: There is diffuse fatty infiltration of the liver with hepatomegaly. No focal liver lesion is identified. The gallbladder is present. The spleen is normal in size and signal intensity. The adrenal glands and pancreas are without acute abnormality. There is no hydronephrosis or renal mass. The kidneys are unremarkable. Limited evaluation of the GI tract is without acute abnormality. There is no abdominal lymphadenopathy or ascites. Postcontrast images reveal no abnormal enhancement. IMPRESSION: No liver lesion is identified. There is diffuse fatty infiltration of the liver with hepatomegaly present. Reviewed, Interpreted and Dictated by Diamante Mchugh MD Transcribed by Christy Gurrola Authenticated and [facility]
[2025-07-25] MEDS: 0.9 % SODIUM CHLORIDE 50 ML VIAL 40 ML IV (08:33)
[2025-07-25] MEDS: GADOTERIDOL INJ 20ML SYRINGE 20 ML IV (08:33)
[2025-07-25] MEDS: GADOTERIDOL INJ 10ML SYRINGE 8 ML IV (08:33)
[2025-07-25] MEDS: SODIUM CHLORIDE 0.9% 10ML SYR (RAD ONLY) 10 ML IV (08:33)
== END 2025-07-25 23:59 | disposition home or self-care (01) ==
LOC: RAD 07:24
PROVIDERS: PCP Family Medicine; Visit Provider Family Medicine
DX: K76.0 Fatty (change of) liver, not elsewhere classified (principal); R16.0 Hepatomegaly, not elsewhere classified; D37.6 Neoplasm of uncertain behavior of liver, gallbladder and bile ducts
CPT/HCPCS: 74183; A9576

== ENCOUNTER 2025-08-08 10:23 | Outpatient (CLI) | payer BC, SELFPAY ==
[2025-08-08 15:01] LABS: Coronavirus 19, PCR Not Detected (NotDetected); Influenza A, PCR Not Detected (NotDetected); Influenza B, PCR Not Detected (NotDetected)
--- OUTSIDE RECORDS SUMMARY | 2025-08-11 10:31 | XMS_ITS | Clinical Summary ---
Author Organization [employer] ([place], [place], [place], [place]) Address [address] [place] [address] Care Team Providers Care Raftsman Name Role Phone Stephanie Allen PA-C Primary Care Provider [phone] Allergies Active Allergy Reactions Criticality Noted Date [...] Date Deyvi rded Speak language other than Burundian at home Not on file 09/01/2024 Want help with school or training Not on file 09/01/2024 Substance Use Answer Date Recorded Used prescription meds for non-medical reasons N ot on file 09/01/2024 Used illegal drugs past 12 months Not on file 09/01/2024 Comments No Sex and Gender Information Value Date Recorded Sex Assigned at Not on file Legal Sex Female 7:19 PM SERVICE OBSERVER Gender Identity Not on file Sexual Orientation [...] patient's age to complete this topic Insurance [employer] [id number] BLUE CROSS/BLUE SHIELD Care Teams Raftsman Relationship Specialty Start Date End Date Stephanie Allen PA-C [facility] [address] [address] PCP - General 09/01/24
--- OUTSIDE RECORDS SUMMARY | 2025-08-11 10:31 | XMS_ITS | Clinical Summary ---
Author Organization [facility] Address [address] [place] [address] Care Team Providers Care Bicycle Mechanic Name Role Phone Stephanie Allen Primary Care Provider [phone] Allergies Active Allergy Reactions Criticality Noted Date [...] cancer Father Earsel Vo Obesity Father Earsel Ov Cancer Maternal Grandfather Gerria Fischer Hearing loss [...] 19+ 3-dose series) 2017 [facility]-Pap Smear 2019 KIF-PTEVO-48 Vaccine ( - season) 2025 [facility]-Influenza Vaccine (#1) 06/30/202509/15, 08/31/2010, 08/22/2007 [facility]-Depression [...] Organization Address City/[facility] [place]/ZIP Co de Phone Number [facility] [address] [place] [address] * Hepatitis C Antibody w/Reflex to HCV Quant PCR (11/01/2024 10:24 AM EST) Hepatitis C Antibody Negative Negative 11/01/2024 1:31 PM EST [facility] Blood Venous blood specimen / Unknown Venipuncture / Unknown 11/01/2024 10:24 AM EST 11/01/2024 12:52 PM EST Result Santino Cowart MD LAB BLOOD ORDERABLES Final Resu lt Performing Organization Address City/[facility] Co de Phone Number [facility] [address] [place] [address] from Last 3 Months or Most Recently Relevant to Health Maintenance Additional Health Concerns Active Problems Noted Date Diagnosed Date CPM S24 PP LABOR (OBSTETRICS) 11/19/2024 Insurance ANTHEM Care Teams Bicycle Mechanic Relationship Specialty Start Date End Date Stephanie Allen PA [address] [place] [address] PCP - General 08/30/24
--- OUTSIDE RECORDS SUMMARY | 2025-08-11 10:31 | XMS_ITS | Clinical Summary ---
Author Organization [facility] Address [address] [place] [address] Care Team Providers Care Regulatory Consultant Name Role Phone NancyStacy barker Primary Care Provider [phone] Allergies Active Allergy Reactions Criticality Noted Date [...] (2 - Td or Tdap) 10/30/2028 10/30/2018 CHLAMYDIA SCREENING Discontinued 10/25/2024 HEPATITIS C SCREENING Completed 11/01/2024 , 11/01/2024 Pneumococcal Vaccine 0-49 Aged Out No longer eligible based on patient's age to complete this topic Insurance [facility] PPO Care Teams Regulatory Consultant Relationship Specialty Start Date End Date Stacy Cruz DO [address] [place] [address] PCP - General Family Medicine 09/14/23
--- OUTSIDE RECORDS SUMMARY | 2025-08-11 10:31 | XMS_ITS | Referral Summary ---
Author Organization [employer] ([place], [place], [place], [place]) Address [address] [place] [address] Care Team Providers Care Cooking Teacher Name Role Phone Stephanie Allen PA-C Primary Care Provider [phone] Allergies Active Allergy Reactions Criticality Noted Date [...] Date Deyvi rded Speak language other than Citizen [place] at home Not on file 09/01/2024 Want help with school or training Not on file 09/01/2024 Substance Use Answer Date Recorded Used prescription meds for non-medical reasons N ot on file 09/01/2024 Used illegal drugs past 12 months Not on file 09/01/2024 Comments No Sex and Gender Information Value Date Recorded Sex Assigned at Not on file Legal Sex Female 7:19 PM PRINT JOURNALIST Gender Identity Not on file Sexual Orientation [...] file Insurance BLUE CROSS/BLUE SHIELD Care Teams Cooking Teacher Relationship Specialty Start Date End Date Stephanie Allen PA-C [address] [facility] [address] [place] [address] PCP - General 09/01/24
--- OUTSIDE RECORDS SUMMARY | 2025-08-11 10:31 | XMS_ITS | Encounter Summary ---
Author Organization [facility] Address [address] [place] [address] Care Team Providers Care Mica Spreader Name Role Phone Stephanie Allen Primary Care Provider [phone] Encounter Details Date Type Department Care Team (Late st Contact Info) Description 10/12/2022 Outside Procedure External Location [address] [place] [address] James Cowart MD [facility] [place] [address] Social History Tobacco Use Types [...] AM EST Narrative 10/12/2022 8:21 [place] [address] Name: LETICIA PENNINGTON Exam Date: 10/12/2022 : 2000 Age 22 Gender: F Physician: JAMES COWART Facility: [facility] Facility HSV: Outpatient Exam: HYSTEROSALPINGOGRAM FLUOROSCOPY [...] Thank you for referring LETICIA PENNINGTON to [facility]. Legally authenticated by POPE ANA Baptiste 2022-10-12 08:09:41 Procedure Note Provider, [facility] - 10/12/2022 [place] [address] Name: LETICIA PENNINGTON Exam Date: 10/12/2022 : 2000 Age 22 Gender: F Physician: JAMES COWART Facility: [facility] Facility HSV: Outpatient Exam: HYSTEROSALPINGOGRAM FLUOROSCOPY [...] Thank you for referring LETICIA PENNINGTON to [facility]. Legally authenticated by POPE ANA Baptiste 2022-10-12 08:09:41 us James Cowart MD IMG FLUOROSCOPY PROCEDURES Gayle l Result documented in this encounter Visit Diagnoses Not on filedocumented in this encounter Care Teams Mica Spreader Relationship Specialty Start Date End Date Stephanie Allen PA [address] [place] [address] PCP - General 08/30/24 documented as of this encounter
== END 2025-08-08 23:59 ==
LOC: LAB.DROPOF 08-11 10:24
PROVIDERS: PCP Family Medicine; Visit Provider Nurse Practitioner
DX: J06.9 Acute upper respiratory infection, unspecified (principal)
CPT/HCPCS: 87631

== ENCOUNTER 2025-10-06 14:49 | Outpatient (CLI) | payer BC, SELFPAY ==
[2025-10-06 15:50] LABS: Hematocrit 39.8 % (37.0-47.0); Hemoglobin 12.3 g/dL (12.2-16.2); Immature Granulocytes % 0.2 %; Mean Corpuscular HGB Conc 30.9 g/dL (31.8-35.4); Mean Corpuscular Hemoglobin 25.3 pg (27.0-31.2); Mean Corpuscular Volume 81.9 fl (81-99); Nucleated Red Blood Cells % 0 %; Platelet Count 285 K/mm3 (142-424); Red Blood Count 4.86 M/mm3 (4.20-5.40); Red Cell Distribution Width-SD 41.9 fL; White Blood Count 8.1 K/mm3 (4.8-10.8)
[2025-10-06 16:04] LABS: Alanine Aminotransferase 26 U/L (12-78); Albumin Level 4.4 g/dl (3.5-5.0); Alkaline Phosphatase 72 U/L (38-126); Anion Gap 19.0 mEq/L (5-15); Aspartate Amino Transferase 31 U/L (14-36); Bilirubin,Direct 0.3 mg/dl (0.0-0.4); Bilirubin,Indirect 0.3 mg/dL (0.0-0.9); Bilirubin,Total 0.6 mg/dl (0.2-1.3); Bilirubin,Unconjugated 0.3 mg/dL (0.0-1.1); Blood Urea Nitrogen 16 mg/dl (7-17); Calcium 9.6 mg/dl (8.4-10.2); Carbon Dioxide 20 mmol/L (22.0-30.0); Chloride 105 mmol/L (98-107); Cholesterol 155 mg/dl (140-200); Creatinine,Serum 0.70 mg/dl (0.52-1.04); Estimated Glomerular Filt Rate 100 ml/min (>60); GFR (African American) 121 ML/MIN (>60); Glucose 91 mg/dl (74-100); HDL Cholesterol 38 mg/dl (40-60); Magnesium 1.8 mg/dl (1.6-2.3); Potassium 4.0 mmoL/L (3.5-5.1); Sodium 140 mmol/L (136-145); Total Protein,Serum 7.5 g/dl (6.3-8.2); Triglycerides 188 mg/dl (30-150)
[2025-10-06 16:21] LABS: Free T4 (Free Thyroxine) 0.84 ng/dl (0.78-2.19)
[2025-10-06 16:35] LABS: Thyroid Stimulating Hormone 1.16 uIU/mL (0.465-4.68)
== END 2025-10-06 23:59 | disposition home or self-care (01) ==
LOC: LAB 14:50
PROVIDERS: PCP Family Medicine; Visit Provider Internal Medicine
DX: R07.9 Chest pain, unspecified (principal); R42 Dizziness and giddiness; R55 Syncope and collapse
CPT/HCPCS: 36415; 80048; 80061; 80076; 83735; 84439; 84443; 85025; 93270

== ENCOUNTER 2025-10-19 12:24 | Outpatient (CLI) | payer BC, SELFPAY ==
--- OUTSIDE RECORDS SUMMARY | 2025-06-20 05:45 | XMS_ITS ---
[facility] Organization [facility] Address [address] [facility] [address] [place] [id number] Care Team Providers Care Laser Beam Trim Operator Name Role Phone Bayron Hayes Primary Care Provider [phone] Allergies Allergen (clinical drug ingredient) Drug/Non Drug Allergy documented on EMR Reaction Allergy Type Onset Date Status propranolol Propranolol Unknown Drug Allergy Act mahamed Results Component Value Reference Range Notes CBC Venipuncture (in house) Reviewed date:06/20/2025 12:42:48 PM Interpretation: Performing Lab: Notes/Report: wbc 8.0 3.5 - 10 lymph 21.7% 15 - 50 mid 6.0% 2 - 15 gran 72.3% 35 - 80 rbc 4.86 3.5 - 5.5 hgb 12.3 11.5 - 16.5 hct 37.6 35 - 55 mcv 77.4 75 - 100 mch 25.4 25 - 35 mchc 32.8 31 - 38 platlet 300 100 - 400 P-Amylase Reviewed date:06/24/2025 01:27:33 PM Interpretation:Normal Performing Lab: Notes/Report: Test performed by [facility] [address] [place], [place] [address] [address] , [address], [place] [address] Ludin Smith MD, Stapler Coil Unit CLIA: [id number] Amylase 27 28-100 U/L P-Comprehensive Metabolic Pa tara (CMP) Reviewed date:06/24/2025 01:27:33 PM Interpretation:Normal Performing Lab: Notes/Report: Test performed by [facility] [address] [place], [place] [address] [address] , [address], [place] [address] Ludin Smith MD, Stapler Coil Unit CLIA: [id number] Sodium 141 135-145 mmol/L Potassium 4.4 3.5-5.3 mmol/L Chloride 104 97-108 mmol/L CO2 26 20-32 mmol/L Glucose 90 65-99 mg/dL BUN 14 6-20 mg/dL Creatinine 0.92 0.50-1.00 mg/dL Calcium 9.7 8.6-10.4 mg/dL eGFR by Creatinine 88 >59 mL/min/1.73m2 Protein 6.8 6.0-8.3 g/dL Albumin 4.2 3.5-5.3 g/dL Alkaline Phosphatase 101 35-121 IU/L ALT (SGPT) 35 <5-47 IU/L AST (SGOT) 28 <5-40 IU/L Bilirubin, Total 0.3 <0.2-1.2 mg/dL A/G Ratio 1.6 1.1-2.5 P-Lipase Reviewed date:06/24/2025 01:27:33 PM Interpretation:Normal Performing Lab: Notes/Report: Test performed by [facility] [address] [place] [address] , [address], [place] [address] Ludin Smith MD, Stapler [employer] Unit CLIA: [id number] Lipase 22.7 13.0-60.0 U/L Ultrasound : Abdomen Reviewed date:06/26/2025 10:15:43 AM Interpretation: Performing Lab: Notes/Report: REASON FOR VISIT Upper right abdominal pain for 2 weeks following childbirth Medications Medication SIG (Take, Route, Frequency, Duration) Notes Start Date End Date Status buPROPion HCl ER (SR) 150 MG 1 tablet in the morning Orally Once a day Active dilTIAZem HCl 120 MG as directed Orally Active Vitamin Act mahamed Vital Signs Blood pressure systolic 134 mm Hg 06/20/20 25 Blood pressure diastolic 82 mm Hg 025 Heart Rate 107 /min 06/20/2025 Height 62 in 06/20/2025 Weight 303 lbs 06/20/2025 BMI 55.41 kg/m2 06/20/2025 Encounters Encounter Location Date Provider Diagnosis [facility] [address] [facility] [address] [place] [id number] 06/20/2025 Bayron Edwardsberry RUQ abdominal pain R10.11 Assessments Encounter Date Diagnosis (ICD Code) Assessment Notes Treatment Notes Treatment Clinical Notes Section Notes 06/20/2025 RUQ abdominal pain (ICD-10 - R10.11) Plan Of Treatment Next Appt Details Follow Up: via phone to repo rt test results, Reason: Progress Notes * Leticia HORTONDOB: 8 (25 yo F)Acc No.[id number]:06/20/2025 Progress Notes Patient: Leticia UERNA Provider: Riki Hayes M.D. :2000 A ge:24 Y S ex:Female Date:06/20/2025 Address:[address] [facility] [address], [place], [id number] Subjective: * Chief Complaints: * 1 . Upper right abdominal pain for 2 weeks following childbirth. * HPI: H PI: 24 year old female presents with c/o Patient is here today for?Pt here to establish care, pt was previously seen by. [facility]: c/o Abdominal Pain P t complains of rt upper abdominal pain for about 3 weeks. Pt states pain has started to become consistant. Pt states she has also had some nausea and vomiting. Pt thinks she may have had a fever one night but was unable to take temperature. * ROS: C ARDIOLOGY: no D izziness. n o C hest pain. D ERMATOLOGY: no R iraida. n o H poornima. U ROLOGY: no D ifficulty urinating. n o B lood in urine. * 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: D epression. 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 * OB History: T otal pregnancies 4 . T otal living children 1 . M iscarriage(s) 3 . * Surgical History: T onsilectomy 2011. * Hospitalization/Major Diagno stic Procedure: D enies Past Hospitalization. * Family History: F ather: , diagnosed with Cancer, Hypertension, Diabetes. M other: alive 55 yrs, diagnosed with Hypertension. P aternal Grand Mother: diagnosed with Heart Disease. 1 brother(s) , 2 sister(s) . 1 son(s) . . * Social History: C URRENT TOBACCO USE: No . C affeine: yes, frequency: 3 x weekly. Alcohol: no. * Medications: T aking Vitamin , Taking buPROPion HCl ER (SR) 150 MG Tablet Extended Release 12 Hour 1 tablet in the morning Orally Once a day , Taking dilTIAZem HCl 120 MG Tablet as directed Orally , Medication List reviewed and reconciled with the patient * Allergies: P ropranolol. Objective: * Vitals: W t: 303, Temp: 98.1, BP: 134/82, HR: 107, Nurse: concha, Ht: 62, BMI:55.41. * Examination: G eneral Examination: General Appearance: N AD. H EENT: u nremarkable.?Neck: s upple, no lymphadenopathy. H eart: R SR. L ungs: c lear to auscultation. A bdomen: o bese, bowel sounds present, soft, right upper quadrant tenderness to palpation, no guarding or rigidity. N eurologic Exam: I ntact, gait normal. S kin: n ormal, no rash. P eripheral pulses: n ormal (2+) bilaterally. E xtremities: n o leg edema. Assessment: * Assessment: 1. R UQ abdominal pain - R10.11 (Primary) Plan: * Treatment: Value Reference Range A mylase 27 L 28-100 - U/L * Shauna Gloria 06/24/2025 11:22: 10 AM EDT > LM for pt to return call Lila Buitrago 06/24/2025 01:27:21 PM EDT > pt informed. ?LAB: P-Comprehensive Metabolic Panel (CMP) (Collection Date & Time - 06/20/2025 10:06 AM)?Normal* Value Reference Range A /G Ratio 1.6 1.1-2.5 - * A lbumin 4.2 3.5-5.3 - g/dL * A lkaline Phosphatase 101 35-121 - IU/L * A LT (SGPT) 35 <5-47 - IU/L * A ST (SGOT) 28 <5-40 - IU/L * B ilirubin, Total 0.3 <0.2-1.2 - mg/dL * B UN 14 6-20 - mg/dL * C alcium 9.7 8.6-10.4 - mg/dL * C hloride 104 97-108 - mmol/L * C O2 26 20-32 - mmol/L * C reatinine 0.92 0.50-1.00 - mg/dL * G lucose 90 65-99 - mg/dL * P otassium 4.4 3.5-5.3 - mmol/L * S odium 141 135-145 - mmol/L * P rotein 6.8 6.0-8.3 - g/dL * e GFR by Creatinine 88 >59 - mL/min/1.73m2 * Shauna Gloria 06/24/2025 11:22: 10 AM EDT > LM for pt to return call Iftikhar Lila 06/24/2025 01:27:21 PM EDT > pt informed. ?LAB: P-Lipase (Collection Date & Time - 06/20/2025 10:06 AM)?Normal* Value Reference Range L ipase 22.7 13.0-60.0 - U/L * Shauna Gloria 06/24/2025 11:22: 10 AM EDT > LM for pt to return call IftikharLila 06/24/2025 01:27:21 PM EDT > pt informed. ?LAB: CBC Venipuncture (in house) (Collection Date & Time - 06/20/2025)* Value Reference Range w bc 8.0 3.5 - 10 * l ymph 21.7% 15 - 50 * m id 6.0% 2 - 15 * g ran 72.3% 35 - 80 * r bc 4.86 3.5 - 5.5 * h gb 12.3 11.5 - 16.5 * h ct 37.6 35 - 55 * m cv 77.4 75 - 100 * m ch 25.4 25 - 35 * m chc 32.8 31 - 38 * p latlet 300 100 - 400 * Shauna Gloria 06/20/2025 11:38: 14 AM EDT > ?Imaging: Ultrasound : Abdomen (Performed Date - 06/25/2025)* Darlene Petty 06/23/2025 02:0 8:29 PM EDT > no auth required; CPT code 24198; faxed to [facility] Lila Carpio 06/26/2025 10:15:34 AM EDT > See phone encounter * Procedure Codes: 8 9675 CBC WITH AUTO DIFF * Follow Up: v ia phone to report test results * Images: Billing Information: * Visit Code: 22345 Office Visit, New Pt., Level 4. * Procedure Codes: 05283 CBC WITH AUTO DIFF. * Electronic signature of Randa Hayes MD on 10/20/2025 at 10:34 AM EST Sign off status: Pending * Provider: Riki Hayes M.D. Date: 0 06/20/2025 Generated for Shweta knight/Ashley/eTransmitting on: 1 12/21/2024 10:34 AM EST History and Physical Notes * HPI (History of Present Illness) Category Sub-Category Detail Notes Category Not es Gastroenterology Abdominal Pain Pt complains of rt upper abdominal pain for about 3 weeks. Pt states pain has started to become consistant. Pt states she has also had some nausea and vomiting. Pt thinks she may have had a fever one night but was unable to take temperature HPI Patient is here toda y for Pt here to establish care, pt was previously seen by Examination Category Sub-Category Detail Notes Category Not es General Examination HEENT: unremarkable Heart: RSR Lungs: clear to auscultatio n Abdomen: obese, bowel sounds present, soft, right upper quadrant tenderness to palpation, no guarding or rigidity Extremities: no leg edema General Appearance: NAD Skin: normal, no rash Neurologic Exam: Intact, gait normal Neck: supple, no lymphaden opathy Peripheral pulses: normal (2+) bilatera lly
--- OUTSIDE RECORDS SUMMARY | 2025-09-22 06:45 | XMS_ITS ---
Author Organization [facility] Address [address] [facility] [address] [place] [phone] Care Team Providers Care Painter And Body Mechanic Apprentice Name Role Phone Bayron Hayes Primary Care [...] Provider Diagnosis [place] [address] [place] [phone] 09/22/2025 Bayron Hayes Acute URI J06.9 and Recurrent syncope R55 Assessments Encounter Date Diagnosis (ICD Code) Assessment Notes Treatment Notes Treatment Clinical Notes Section Notes 09/22/2025 Acute URI (ICD-10 - J06.9) 09/22/2025 Recurrent syncope (ICD-10 - R55) Patient to follow with [facility] cardiology to complete evaluation for POTS. Plan Of Treatment Medication Medication Name Sig Start Date Stop Date Notes Zithromax Z-Kaleb 250 MG as directed Orall y daily; Duration: 5 days 09/22/2025 Treatment Notes Assessment Notes Recurrent syncope Patient to follow wi th [facility] cardiology to complete evaluation for POTS. Next Appt Details Follow Up: prn, Reason: Progress Notes * HORTONLeticiaDOB: 8 (25 yo F)Acc No.[id number]:09/22/2025 Progress Notes Patient: Emile HOLLAND Leticia Provider: Riki Hayes M.D. :2000 A ge:25 Y S ex:Female Date:09/22/2025 Address:[address] [place] [address] [address] [id number] Subjective: * Chief Complaints: * 1 . [...] 2.?Recurrent syncope? Notes: Patient to follow with [facility] cardiology to complete evaluation for POTS.?? * Procedure Codes: 3 6416 CAPILLARY BLOOD DRAW, [address] CBC WITH AUTO DIFF * Follow Up: p rn * Images: Billing Information: * Visit Code: 13214 Office Visit, Est Pt., Level 3. * Procedure Codes: 68911 CAPILLARY BLOOD DRAW. 09565 CBC WITH AUTO DIFF. * Electronic signature of Randa Hayes MD on 10/20/2025 at 10:34 AM EST Sign off status: Pending * Provider: Riki Hayes M.D. Date: 11/22/2024 Generated for Shweta knight/Ashley/Dora on: 12/21/2024 10:34 AM EST History and Physical [...]
[2025-10-19 20:20] LABS: Coronavirus 19, PCR Not Detected (NotDetected); Influenza A, PCR Not Detected (NotDetected); Influenza B, PCR Not Detected (NotDetected)
--- OUTSIDE RECORDS SUMMARY | 2025-10-20 10:35 | XMS_ITS | Clinical Summary ---
Author Organization [facility] Address [address] [address] Care Team Providers Care Harness Mender Name Role Phone NancyStacy barker Primary Care Provider [phone] Allergies Active Allergy Reactions Criticality Noted Date [...] age to complete this topic Insurance [facility] [facility] PPO Care Teams Harness Mender Relationship Specialty Start Date End Date Stacy Cruz DO [address] [place] [address] PCP - General Family Medicine 09/14/23
--- OUTSIDE RECORDS SUMMARY | 2025-10-20 10:35 | XMS_ITS | Patient Health Record ---
[facility] Address [address] [facility] [address] [place] [id number] Care Team Providers Care Supervisor Fishing Name Role Phone Bayron Hayes Primary Care [...] Interpretation:Normal Performing Lab: Notes/Report: Test performed by [facility] [address] [place], [place] [address] , [address], [place] [address] Ludin Smith MD, Real Estate Office Manager CLIA: [id number] Amylase 27 28-100 U/L P-Comprehensive Metabolic Pa tara (CMP) Reviewed date:06/24/2025 01:27:33 PM Interpretation:Normal Performing Lab: Notes/Report: Test performed by [facility] [address] [place], [place] [address] , [address], [place] [address] Ludin Smith MD, Real Estate Office Manager CLIA: [id number] Sodium 141 135-145 mmol/L Potassium 4.4 3.5-5.3 [...] Interpretation:Normal Performing Lab: Notes/Report: Test performed by [facility], [address] , [address], [place] [address] Ludin Simth MD, Real Estate Office Manager CLIA: [id number] Lipase 22.7 13.0-60.0 U/L Ultrasound : Abdomen Reviewed date:06/26/2025 10:15:43 AM Interpretation: Performing Lab: Notes/Report: CBC Fingerstick (in house) Reviewed date:09/22/2025 01:13:09 [...] - 38 plat 230 100 - 400 MRI : Liver, with and withou t contrast Reviewed date:07/28/2025 03:47:07 PM Interpretation: Performing Lab: Notes/Report: IFTIKHAR Reviewed date:06/18/2025 [...] day Active Vitamin Act mahamed Vital Signs Heart Rate 105 /min 09/22/2025 Blood pressure diastolic 82 mm Hg 09/22/2025 Height 62 in 09/22/2025 Blood pressure systolic 130 mm Hg 09/22/2025 Weight 305.6 lbs 09/22/2025 BMI 55.89 kg/m2 09/22/2025 Encounters Encounter Location Date Provider Diagnosis [facility] [address] [place] [id number] 06/20/2025 Bayron [place] RUQ abdominal pain R10.11 [facility] [address] [place] [id number] 09/22/2025 Bayron [place] Acute URI J06.9 and Recurrent syncope R55 [facility] [address] [place] [id number] 06/26/2025 Bayron [place] 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 [address] [place] [id number] 07/28/2025 Bayron [place] Assessments Encounter Date Diagnosis (ICD Code) Assessment Notes Treatment Notes Treatment Clinical Notes Section Notes 06/20/2025 RUQ abdominal pain (ICD-10 - R10.11) 06/26/2025 Neoplasm of uncertain behavior of liver (ICD-10 - D37.6) 09/22/2025 Acute URI (ICD-10 - J06.9) 09/22/2025 Recurrent syncope (ICD-10 - R55) Patient to follow with [facility] cardiology to complete evaluation for POTS. Plan Of Treatment No Information Insurance Providers Payer Name Payer Address Payer Phone Subscriber Number Group Number Insured Name Patient Relationship to Insured Coverage Start Date Coverage End Date [employer] [address] [place] [address] [id number] Leticia Moulton Self - patient is the insured Medical (General) History 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 History ICD Code Depression Surgical History Surgery Date(Month/Year) Tonsilectomy 2011
--- OUTSIDE RECORDS SUMMARY | 2025-10-20 10:35 | XMS_ITS | Clinical Summary ---
Author Organization [employer] ([place], [place], [place], [place], [place]) Address [address] [place] [address] Care Team Providers Care Commodity Loan Clerk Name Role Phone Stephanie Allen PA-C Primary Care Provider [phone] Allergies Active Allergy Reactions Criticality Noted Date [...] Date Deyvi rded Speak language other than Trinidadian at home Not on file 09/01/2024 Want help with school or training Not on file 09/01/2024 Substance Use Answer Date Recorded Used prescription meds for non-medical reasons N ot on file 09/01/2024 Used illegal drugs past 12 months Not on file 09/01/2024 Comments No Sex and Gender Information Value Date Recorded Sex Assigned at Not on file Legal 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
--- OUTSIDE RECORDS SUMMARY | 2025-10-20 10:35 | XMS_ITS | Encounter Summary ---
Author Organization Healthcare Address [address] [place] [address] Care Team Providers Care Interpreter Deaf Name Role Phone Stephanie Allen Primary Care Provider [phone] Encounter Details Date Type Department Care Team (Late st Contact Info) Description 10/12/2022 Outside Procedure External Location [address] [place] [address] James Cowart MD [facility]0 [place] [address] Social History Tobacco Use Types [...] AM EST Narrative 10/12/2022 8:21 [place] [address] Name: LETICIA PENNINGTON Exam Date: 10/12/2022 : 2000 Age 22 Gender: F Physician: JAMES COWART Facility: [facility] Facility HSV: Outpatient Exam: HYSTEROSALPINGOGRAM FLUOROSCOPY TIME [...] Thank you for referring LETICIA PENNINGTON to [facility]. Legally authenticated by POPE ANA Baptiste 2022-10-12 08:09:41 Procedure Note Provider, [facility] - 10/12/2022 [place] [address] Name: LETICIA PENNINGTON Exam Date: 10/12/2022 : 2000 Age 22 Gender: F Physician: JAMES COWART Facility: [facility] Facility HSV: Outpatient Exam: HYSTEROSALPINGOGRAM FLUOROSCOPY TIME [...] Thank you for referring LETICIA PENNINGTON to [facility]. Legally authenticated by POPE ANA Baptiste 2022-10-12 08:09:41 us Jamse Cowart MD IMG FLUOROSCOPY PROCEDURES Gayle l Result documented in this encounter Visit Diagnoses Not on filedocumented in this encounter Care Teams Interpreter Deaf Relationship Specialty Start Date End Date Stephanie Allen PA [address] [place] [address] PCP - General 08/30/24 documented as of this encounter
--- OUTSIDE RECORDS SUMMARY | 2025-10-20 10:35 | XMS_ITS | Referral Summary ---
Author Organization [employer] ([place], [place], [place], [place], [place]) Address [address] [place] [address] Care Team Providers Care Gis Developer Name Role Phone Stephanie Allen PA-C Primary Care Provider [phone] Allergies Active Allergy Reactions Criticality Noted Date [...] Date Deyvi rded Speak language other than Kuwaiti at home Not on file 09/01/2024 Want help with school or training Not on file 09/01/2024 Substance Use Answer Date Recorded Used prescription meds for non-medical reasons N ot on file 09/01/2024 Used illegal drugs past 12 months Not on file 09/01/2024 Comments No Sex and Gender Information Value Date Recorded Sex Assigned at Not on file Legal 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
--- OUTSIDE RECORDS SUMMARY | 2025-10-20 10:35 | XMS_ITS | Clinical Summary ---
Author Organization [facility] Address [address] [place] [address] Care Team Providers Care Dental Mechanic Name Role Phone Stephanie Allen Primary Care Provider [phone] Allergies Active Allergy Reactions Criticality Noted Date [...] Recorded Patient Health Questionnaire-9 Score 0 01/03/2025 Comments No Sex and Gender Information Value [...] 19+ 3-dose series) 2017 [facility]-Pap Smear 2019 [id number] Vaccine (1 - 2024- season) 2025 [facility]-Influenza Vaccine (#1) 06/30/202509/15, 08/31/2010, [...] on patient's age to complete this topic [facility]-Rotavirus Vaccines Aged Out No lo nger [...] Reactive Non Reactive 11/01/2024 1:54 PM EST [facility] Comment:Screening for HIV 1 & 2 antibodies, and P24 antigen is NONREACTIVE. No confirmatory testing is required. Blood Venous blood specimen / Unknown Venipuncture / Unknown 11/01/2024 10:24 AM EST 11/01/2024 12:52 PM EST Result Santino Cowart MD LAB BLOOD ORDERABLES Final Resu lt Performing Organization Address City/[facility]/ZIP Co de Phone Number [facility] [address] [place] [address] * Hepatitis C Antibody w/Reflex to HCV Quant PCR (11/01/2024 10:24 AM EST) Hepatitis C Antibody Negative Negative 11/01/2024 1:31 PM EST [facility] Blood Venous blood specimen / Unknown Venipuncture / Unknown 11/01/2024 10:24 AM EST 11/01/2024 12:52 PM EST Result Santino Cowart MD LAB BLOOD ORDERABLES Final Resu lt Performing Organization Address City/[facility] Co de Phone Number [facility] [address] [place] [address] from Last 3 Months or Most Recently Relevant to Health Maintenance Additional Health Concerns Active Problems Noted Date Diagnosed Date CPM S24 PP LABOR (OBSTETRICS) 11/19/2024 Insurance ANTH Care Teams Dental Mechanic Relationship Specialty Start Date End Date Stephanie Allen PA [address] [place] [address] PCP - General 08/30/24
== END 2025-10-19 23:59 | disposition home or self-care (01) ==
LOC: LAB.DROPOF 10-20 10:26
PROVIDERS: PCP Family Medicine; Visit Provider Nurse Practitioner
DX: J06.9 Acute upper respiratory infection, unspecified (principal)
CPT/HCPCS: 87631